=== PATIENT | female | born 1950 | race Caucasian/White ===

== ENCOUNTER 2016-09-10 16:30 | Inpatient (IN) | payer BC ==
[~2016-09-10] VITALS: Ht 165.1 cm; Wt 65.3 kg
[2016-09-10] MEDS ORDERED: CIPROFLOXACIN750 MG ORAL (16:43)
[2016-09-10] MEDS ORDERED: TRAMADOL HCL50 MG ORAL (16:43)
--- NOTE | 2016-09-10 17:14 | Emergency Room Report ---
History of Present Illness General Chief Complaint: Abdominal Pain Source: Patient Present Illness HPI Patient is a 66-year-old female who presented after having increased right- sided abdominal pain. The patient was noted to have a prior total colectomy as well the incontinent ileostomy placement. The patient had previously placed a rubber catheter into the stoma. The patient noted increased amount of bleeding today. The patient had not had any fever. She had not been having any discharge from the stoma site other than blood. Allergies: Coded Allergies: No Known Allergies (Verified , 01/11/12) Patient History Past Medical History: see triage record Now: No Reviewed Nursing Documentation: PMH: Agreed, PSxH: Agreed Nursing Documentation-PMH Hx Cardiac Problems: Yes - HX AFIB Hx Gastrointestinal Problems: Yes - COLOSTOMY LOWER RIGHT QUAD Review of Systems All Other Systems: negative except mentioned in HPI Physical Exam Vital Signs Date Time Temp Pulse Resp B/P Pulse Ox O2 Delivery O2 Flow Rate FiO2 09/10/16 16:34 97.9 73 14 137/90 100 Room Air Sp02 EP Interpretation: reviewed, normal General Appearance: normal inspection, well appearing, no apparent distress, alert, GCS 15 Head: atraumatic ENT: normal ENT inspection, hearing grossly normal, normal voice Neck: normal inspection, full range of motion, supple, no bony tend Respiratory: normal inspection, lungs clear, normal breath sounds, no respiratory distress, no retraction, no wheezing Cardiovascular #1: regular rate, rhythm, no edema Gastrointestinal: normal inspection, normal bowel sounds, soft, no hernia, tenderness - right lower abdomen. Genitourinary: no CVA tenderness Musculoskeletal: normal inspection, back normal, normal range of motion Neurologic: normal inspection, alert, oriented x3, responsive, observation assistant III-XII nml as tested, speech normal Psychiatric: normal inspection, judgement/insight normal, mood/affect normal Skin: normal inspection, normal color, no rash Medical Decision Making Diagnostic Impression: Primary Impression: Kock Pouch bleeding Additional Impression: Abdominal pain ER Course Patient presented for abdominal pain. Differential diagnoses included ischemic bowel, appendicitis, perforated viscus, abdominal aortic aneurysm, inferior myocardial infarction, viral gastroenteritis Because of complexity of patient's case laboratory testing and imaging studies were ordered. The patient was discussed with Dr. Loc Cuevas. The doctor Cuevas saw the patient while in the emergency department and placed a Brock catheter into the stoma. The patient was given IV pain medications. CT of the abdomen pelvis read by radiology showed postsurgical changes as well as a Brock catheter in the stoma which appear to be somewhat deep. Dr. Cuevas was notified of the radiographic findings and he agreed to see the patient as an inpatient. Labs Test 09/10/16 17:20 White Blood Count 9.7 K/UL (4.8-10.8) Red Blood Count 4.67 M/UL (4.20-5.40) Hemoglobin 14.8 G/DL (12.0-16.0) Hematocrit 44.2 % (37.0-47.0) Mean Corpuscular Volume 95 FL (80-99) Mean Corpuscular Hemoglobin 31.6 PG (27.0-31.0) Mean Corpuscular Hemoglobin Concent 33.5 G/DL (32.0-36.0) Red Cell Distribution Width 11.1 % (11.6-14.8) Platelet Count 241 K/UL (150-450) Mean Platelet Volume 6.5 FL (6.5-10.1) Neutrophils (%) (Auto) 63.5 % (45.0-75.0) Lymphocytes (%) (Auto) 24.4 % (20.0-45.0) Monocytes (%) (Auto) 9.6 % (1.0-10.0) Eosinophils (%) (Auto) 1.2 % (0.0-3.0) Basophils (%) (Auto) 1.3 % (0.0-2.0) Prothrombin Time 10.2 SEC (9.30-11.50) Prothromb Time International Ratio 1.0 (0.9-1.1) Activated Partial Thromboplast Time 24 SEC (23-33) Sodium Level 141 mEQ/L (135-145) Potassium Level 3.7 mEQ/L (3.4-4.9) Chloride Level 103 mEQ/L (98-107) Carbon Dioxide Level 23 mEQ/L (20-30) Anion Gap 15 (5-15) Blood Urea Nitrogen 14 mg/dL (7-23) Creatinine 0.8 mg/dL (0.5-0.9) Estimat Glomerular Filtration Rate > 60 mL/min (>60) Glucose Level 96 mg/dL (74-106) Calcium Level 9.5 mg/dL (8.6-10.2) Total Bilirubin 0.9 mg/dL (0.0-1.2) Aspartate Amino Transf (AST/SGOT) 20 U/L (5-40) Alanine Aminotransferase (ALT/SGPT) 17 U/L (3-33) Alkaline Phosphatase 71 U/L (35-104) Total Protein 7.0 g/dL (6.6-8.7) Albumin 4.3 g/dL (3.5-5.2) Globulin 2.7 g/dL Albumin/Globulin Ratio 1.5 (1.0-2.7) Last Vital Signs Date Time Temp Pulse Resp B/P Pulse Ox O2 Delivery O2 Flow Rate FiO2 09/10/16 16:34 97.9 73 14 137/90 100 Room Air Status: unchanged Disposition: ADMITTED INPATIENT Condition: Serious Referrals: LOC CUEVAS (PCP) Ryder Thao Sep 10, 2016 17:14
[2016-09-10] MEDS ORDERED: HYDROmorphone 1mg/NS 50ml IVPB 50 ML IVPB ONE (17:15)
[2016-09-10] MEDS ORDERED: HYDROmorphone 1 MG, DiphenhydrAMINE 25 MG in NS 50 ML IVPB ONE (17:15)
--- NOTE | 2016-09-10 17:15 | General Progress Note ---
Progress Note Progress Note 66 yo female in good health with past history Ulcerative Colitis and total colectomy with Kock Pouch continent ileostomy (1984) plus several subsequent revisions. Now with severe abdominal and adrián-stomal pain, pain with intubation and bleeding Abdomen soft, flat; peristomal swelling and tenderness I was unable to insert a 28Fr Brock to her Kock pouch, but did get a 26Fr Brock in - connected to gravity drainage bag. Imp. Kock pouch with abdominal and peristomal pain and bleeding R/O perforation of access segment with abscess R/O bleeding from pouch or stoma, or UGI source Plan: STAT labs STAT CT scan abd+pelvis with oral and IV contrast LOC HUMPHRIES Sep 10, 2016 17:15
[2016-09-10 17:31] LABS: BASOPHILS % (AUTO) 1.3 % (0.0-2.0); EOSINOPHILS % (AUTO) 1.2 % (0.0-3.0); LYMPHOCYTES % (AUTO) 24.4 % (20.0-45.0); MEAN CORPUSCULAR HEMOGLOBIN 31.6 PG (27.0-31.0); MEAN CORPUSCULAR HGB CONC 33.5 G/DL (32.0-36.0); MEAN CORPUSCULAR VOLUME 95 FL (80-99); MEAN PLATELET VOLUME 6.5 FL (6.5-10.1); MONOCYTES % (AUTO) 9.6 % (1.0-10.0); NEUTROPHILS % (AUTO) 63.5 % (45.0-75.0); PLATELET COUNT 241 K/UL (150-450); RED BLOOD COUNT 4.67 M/UL (4.20-5.40); RED CELL DISTRIBUTION WIDTH 11.1 % (11.6-14.8); WHITE BLOOD COUNT 9.7 K/UL (4.8-10.8)
[2016-09-10 17:41] LABS: PROTHROMBIN TIME 10.2 SEC (9.30-11.50)
[2016-09-10 17:48] LABS: ALANINE AMINOTRANSFERASE 17 U/L (3-33); ALBUMIN/GLOBULIN RATIO 1.5 (1.0-2.7); ANION GAP 15 (5-15); ASPARTATE AMINO TRANSFERASE 20 U/L (5-40); CALCIUM 9.5 mg/dL (8.6-10.2); CARBON DIOXIDE 23 mEQ/L (20-30); CHLORIDE 103 mEQ/L (98-107); CREATININE 0.8 mg/dL (0.5-0.9); GLOMERULAR FILTRATION RATE > 60 mL/min (>60); HEMOLYSIS 8; POTASSIUM 3.7 mEQ/L (3.4-4.9); SODIUM 141 mEQ/L (135-145)
[2016-09-10 18:51] VITALS: BP 131/85
[2016-09-10] MEDS ORDERED: DiphenhydrAMINE 50mg/ml Inj IVP PRN (20:30)
[2016-09-10] MEDS ORDERED: LORazepam 1mg tab ORAL PRN (20:45)
[2016-09-10] MEDS: HYDROmorphone 1mg/ml Carpuject SUBQ PRN (21:22)
[2016-09-10 22:22] VITALS: BP 138/83
[2016-09-10] MEDS: D5 1/2NS w/KCl 20mEq 1,000 ML IV SCH (22:37)
[2016-09-11] VITALS: BP 142/86
[2016-09-11 04:00] VITALS: BP 140/86
[2016-09-11] MEDS: D5 1/2NS w/KCl 20mEq 1,000 ML IV SCH ×3 (04:41→16:59)
[2016-09-11 07:38] LABS: BASOPHILS % (AUTO) 1.4 % (0.0-2.0); EOSINOPHILS % (AUTO) 2.3 % (0.0-3.0); LYMPHOCYTES % (AUTO) 22.3 % (20.0-45.0); MEAN CORPUSCULAR HGB CONC 32.2 G/DL (32.0-36.0); MEAN CORPUSCULAR VOLUME 96 FL (80-99); MEAN PLATELET VOLUME 6.5 FL (6.5-10.1); MONOCYTES % (AUTO) 9.9 % (1.0-10.0); NEUTROPHILS % (AUTO) 64.2 % (45.0-75.0); PLATELET COUNT 256 K/UL (150-450); RED BLOOD COUNT 4.84 M/UL (4.20-5.40); RED CELL DISTRIBUTION WIDTH 11.9 % (11.6-14.8); WHITE BLOOD COUNT 8.2 K/UL (4.8-10.8)
[2016-09-11 07:53] LABS: ALANINE AMINOTRANSFERASE 16 U/L (3-33); ALBUMIN/GLOBULIN RATIO 1.5 (1.0-2.7); ANION GAP 15 (5-15); ASPARTATE AMINO TRANSFERASE 20 U/L (5-40); CALCIUM 9.6 mg/dL (8.6-10.2); CARBON DIOXIDE 26 mEQ/L (20-30); CHLORIDE 100 mEQ/L (98-107); CREATININE 0.9 mg/dL (0.5-0.9); GLOMERULAR FILTRATION RATE > 60 mL/min (>60); HEMOLYSIS 7; LIPASE 15 U/L (< 60); POTASSIUM 3.9 mEQ/L (3.4-4.9); SODIUM 141 mEQ/L (135-145); TOTAL PROTEIN 7.4 g/dL (6.6-8.7)
[2016-09-11 08:00] VITALS: BP 123/73
--- NOTE | 2016-09-11 08:15 | General Progress Note ---
Progress Note Progress Note H&P dictated last night. Afebrile VSS Continues to c/o abdominal pain, cramping, and peristomal pain Abdomen soft, flat,non-tender except around stoma Overnight: urine 420 Kock pouch ileo 250 no blood in effluent Labs all stable/unchanged. CT in ER negative but oral contrast was not given despite request Imp. Abdominal pain with Kock pouch painful intubations and bleeding Plan: Repeat CT scan with contrast instilled into the Kock Pouch = CT pouchogram Kock pouch endoscopy in LOC ROGERS Sep 11, 2016 08:15
[2016-09-11] MEDS: Norco 5mg/325mg tab ORAL PRN ×2 (09:58→19:14)
[2016-09-11 12:00] VITALS: BP 112/71
[2016-09-11 16:12] VITALS: BP 111/75
[2016-09-11 20:28] VITALS: BP 113/72
--- NOTE | 2016-09-11 21:17 | Pre-op HX & Phy Repo 2 SIG ---
DATE OF ADMISSION: 09/10/2016 HISTORY OF PRESENT ILLNESS: The patient is a 66-year-old female in overall good health with abdominal pain and difficulty with intubation of her Kock pouch continent ileostomy with severe pain and bleeding. The patient has a past history of ulcerative colitis. In 1984 she underwent proctocolectomy and creation of a Kock pouch continent ileostomy. She required a revision of the nipple valve in 1985 and a revision of the stoma for stricture in 2007. Her usual routine is to intubate 8 times per day and one to two times at night in the using a 34-Georgian nasopharyngeal airway. She has had no incontinence and no history of pouchitis. She was seen by me once in the past in the office because of her concern about a small stoma. She changed her intubation catheter to a 30-Georgian Medena catheter and had an easier time of intubating her small stoma. In 12/2015, she had pain and bleeding for several days with her catheter and had watery output with cramps. She was treated with Cipro and Flagyl orally and the symptoms resolved. She then developed progressive pain and bleeding intubating and tried a 30-Georgian Stephanie catheter and found she had less difficulty. She was advised to undergo a pouch endoscopy and likely a stoma revision, but deferred at that time. The point of pain is within the first inch of intubating into the stoma. Now the patient presents with 24 hours of severe abdominal pain and severe peristomal pain with swelling and bleeding. She was able to insert only a 24-Georgian catheter into her pouch, but was able to evacuate some material and did not have nausea or vomiting. MEDICATIONS: Aspirin 81 mg daily; Celebrex and ibuprofen for low back pain. ALLERGIES: None. OPERATIONS: Knee and elbow surgery in addition to the above. REVIEW OF SYSTEMS: 1) The patient has a history of atrial fibrillation and underwent ablation in 2012 2) The patient had a recent borderline or equivocal stress test and underwent CT scan of the chest a week ago and was told it was unremarkable. PHYSICAL EXAMINATION: GENERAL: The patient is 5 foot 8 inches and 140 pounds. HEENT: Within normal limits. LUNGS: Clear. HEART: Regular rhythm. BREASTS: Without masses. ABDOMEN: Soft and flat with some mild tenderness, but most concentrated in the right lower quadrant around the stoma. There is soft tissue swelling, but no sign of cellulitis or abdominal wall hernia. PELVIC: Deferred. RECTAL: Status post proctectomy. EXTREMITIES: Without edema. NEUROLOGIC: Physiologic. PROCEDURE PERFORMED: I tried in the Emergency Room to insert a 28-Georgian Brock catheter into her pouch, having removed the indwelling small catheter that she had in place, but it was too painful. I did insert a 26-Georgian Brock catheter into the pouch and confirmed its location with irrigation and secured it to the skin with tape and connected it to a continuous gravity drainage bag. Dry dressing was applied. The patient underwent laboratory testing revealing white count 9700 and hemoglobin 14.8. Comprehensive metabolic panel within normal limits. It should be noted that the patient has had very little oral intake and these values may be hemoconcentrated. A CT scan of the abdomen and pelvis was performed, but unfortunately oral contrast was not given. This did not reveal any acute process, but a small abscess just under the stoma could readily be missed without oral contrast. IMPRESSION: 1. Kock pouch painful intubation and bleeding with abdominal pain and peristomal pain 2. History of ulcerative colitis. 3. History of atrial fibrillation, status post ablation in 2012. 4. Status post multiple abdominal operations. 4.1. Proctocolectomy and Kock pouch continent ileostomy in 1984. 4.2. Revision of Kock pouch nipple valve in 1985. 4.3. Revision of Kock pouch stoma for stricture in 2007. PLAN: The patient needs to be admitted for management of pain, which has required parental medications in the emergency room, and for close observation. She also requires an indwelling catheter into her Kock pouch for continuous gravity drainage and intravenous hydration. She will require a repeat CT scan with contrast given into the pouch at the time of CT scan to better identify a potential perforation of the access segment, which would explain the severe pain in the peristomal area and swelling. I have discussed this plan with the patient and she understands and agrees to proceed. Vishnu Cuevas M.D. DR: TAYLOR JOB#: [id number] CC: MATT
[2016-09-12] VITALS (11 sets, daily range): BP systolic 106–129; BP diastolic 69–87
[2016-09-12] MEDS: Norco 5mg/325mg tab ORAL PRN ×3 (00:57→22:17)
[2016-09-12] MEDS: D5 1/2NS w/KCl 20mEq 1,000 ML IV SCH (05:50)
[2016-09-12] MEDS ORDERED: HYDROmorphone 1mg/ml Carpuject SUBQ PRN (08:30)
--- NOTE | 2016-09-12 08:33 | Pre-Procedure Note/Attestation ---
Pre-Procedure Note/Attestation Complete Prior to Procedure Planned Procedure: not applicable Procedure Narrative: Kock pouch endoscopy Indications for Procedure Pre-Operative Diagnosis: Malfunctioning Kock Pouch Attestation I attest that I discussed the nature of the procedure; its benefits; risks and complications; and alternatives (and the risks and benefits of such alternatives ), prior to the procedure, with the patient (or the patient's legal traffic workforce representative). I attest that, if there was a reasonable possibility of needing a blood transfusion, the patient (or the patient's legal traffic workforce representative) was given the [facility] standardized written summary, pursuant to the Damion Bystrom Blood Safety Act ([place] Health and Safety Code # 1645, as amended). I attest that I re-evaluated the patient just prior to the surgery and that there has been no change in the patient's H&P, except as documented below:none LOC HUMPHRIES Sep 12, 2016 08:33
[2016-09-12] MEDS: HYDROmorphone 1mg/ml Carpuject SUBQ PRN (08:36)
--- NOTE | 2016-09-12 09:23 | Brief Operative Note ---
Immediate Post Operative Note Operative Note Pre-op Diagnosis: Malfunctioning Kock Pouch Procedure: Kock pouch endoscopy Post-op Diagnosis: slight narrowing of access segment near stoma orifice Post-op Diagnosis: same as pre-op Findings: consistent w/pre-op dx studies Surgeon: yady Anesthesiologist: ector Anesthesia: MAC Specimen: none Complications: none Condition: stable Fluids: see anesthesia record Estimated Blood Loss: none Drains: other - 28 Brock to Kock Pouch Implant(s) used?: No LOC HUMPHRIES Sep 12, 2016 09:23
--- NOTE | 2016-09-12 09:39 | Anethesia Preoperative Eval ---
Anesthesia Pre-op PMH/ROS General Date of Evaluation: Sep 12, 2016 Time of Evaluation: 08:58 Anesthesiologist: Drea ASA Score: ASA 2 Mallampati Score Class I : Soft palate, uvula, fauces, pillars visible Class II: Soft palate, uvula, fauces visible Class III: Soft palate, base of uvula visible Class IV: Only hard plate visible Mallampati Classification: Class II Surgeon: Mason Diagnosis: Abdominal pain Surgical Procedure: Pouch endoscopy Anesthesia History: none Family History: no anesthesia problems Allergies: Coded Allergies: No Known Allergies (Verified , 01/11/12) Medications: see eMAR Past Medical History Cardiovascular: Reports: arrhythmia - h/o AF s/p ablasion stable SR, Denies: CAD, HTN, [place], other, valve dz Pulmonary: Denies: COPD, BRITTNEY, asthma, other Gastrointestinal/Genitourinary: Reports: GERD, other - H/O UC s/p total colectomy continent pouch creation, Denies: CRI, ESRD Neurologic/Psychiatric: Denies: CVA, TIA, dementia, depression/anxiety, other Endocrine: Denies: DM, hypothyroidism, other, steroids HEENT: Denies: CHIGNIK LAGOON (L), CHIGNIK LAGOON (R), cataract (L), cataract (R), glaucoma, other Hematology/Immune: Denies: DVT, anemia, bleeding disorder, other Musculoskeletal/Integumentary: Denies: DDD, DJD, OA, RA, edema, other PMH Narrative: as above PSxH Narrative: multiple abdominal Sx for creation and maintenance of continent pouch Anesthesia Pre-op Phys. Exam Physician Exam Last Vital Signs Date Time Temp Pulse Resp B/P Pulse Ox O2 Delivery O2 Flow Rate FiO2 09/12/16 08:45 97.7 09/12/16 07:34 68 20 115/76 96 Room Air Constitutional: NAD Neurologic: CN 2-12 intact Cardiovascular: RRR, no M/R/G Respiratory: CTA Gastrointestinal: S/NT/ND Airway Exam Mallampati Score: Class II MO: limited Neck: stiff ROM: limited Teeth: intact Dentures: no lower, no upper Anesthesia Pre-op A/P Labs see chart Studies Pre-op Studies: EKG - NSR Risk Assessment & Plan Assessment: ASA 2 Plan: MAC Status Change Before Surgery: No Pre-Antibiotics Drug: none RAYMOND FINE M.D. Sep 12, 2016 09:39
--- NOTE | 2016-09-12 09:41 | Immediate Post-Op Evaluation ---
Immediate Post-Op Evalulation Immediate Post-Op Evalulation Procedure: Pouch endoscopy Date of Evaluation: Sep 12, 2016 Time of Evaluation: 09:40 IV Fluids: 300 Blood Products: none Estimated Blood Loss: none Urinary Output: none Blood Pressure Systolic: 117 Blood Pressure Diastolic: 58 Pulse Rate: 64 Respiratory Rate: 20 O2 Sat by Pulse Oximetry: 99 Temperature (Fahrenheit): 97.6 Pain Score (1-10): 2 Nausea: No Vomiting: No Complications none Patient Status: awake, patent, none Hydration Status: adequate RAYMOND FINE M.D. Sep 12, 2016 09:41
--- NOTE | 2016-09-12 09:44 | 48 Hour Post Anesthesia Eval ---
Post Anesthesia Evaluation Procedure: Pouch endoscopy Date of Evaluation: Sep 12, 2016 Time of Evaluation: 10:20 Blood Pressure Systolic: 124 0: 68 Pulse Rate: 72 Respiratory Rate: 18 Temperature (Fahrenheit): 97.6 O2 Sat by Pulse Oximetry: 99 Airway: patent Nausea: No Vomiting: No Pain Intensity: 1 Hydration Status: adequate Cardiopulmonary Status: stable Mental Status/LOC: patient returned to baseline Follow-up Care/Observations: n/a Post-Anesthesia Complications: none Follow-up care needed: N/A RAYMOND FINE M.D. Sep 12, 2016 09:44
[2016-09-12] MEDS ORDERED: DiphenhydrAMINE 50mg/ml Inj IVP PRN (09:45)
[2016-09-12] MEDS ORDERED: NS 550ML IV ONE (17:28)
[2016-09-12] MEDS ORDERED: NS Irrig 1000ml ONE (17:28)
[2016-09-12] MEDS ORDERED: Sterile Water Irrig 1000ml IRRIG ONE (17:28)
--- NOTE | 2016-09-12 22:28 | Procedure Note ---
DATE OF ENDOSCOPY: 09/12/2016 TYPE OF ENDOSCOPY: Kock pouch endoscopy. ENDOSCOPIST: Vishnu Cuevas MD ANESTHESIOLOGIST: Uday Shepard MD PRE-ENDOSCOPY DIAGNOSES: 1. Kock pouch painful intubation and bleeding with stenosis of stoma. 2. History of ulcerative colitis. 3. Status post multiple abdominal operations. 3.1. Proctocolectomy and Kock pouch continent ileostomy in 1984. 3.2. Revision of Kock pouch and nipple valve in 1985. 3.3. Revision of Kock pouch stoma for stricture in 2007. POST-ENDOSCOPY DIAGNOSES: 1. Kock pouch painful intubation and bleeding with stenosis of stoma. 2. History of ulcerative colitis. 3. Status post multiple abdominal operations. 3.1. Proctocolectomy and Kock pouch continent ileostomy in 1984. 3.2. Revision of Kock pouch and nipple valve in 1985. 3.3. Revision of Kock pouch stoma for stricture in 2007. ENDOSCOPY PERFORMED: Kock pouch endoscopy. FINDINGS: A mild narrowing of the access segment approximately 2cm to 3 cm within the stoma orifice with a normal pouch and valve. DESCRIPTION OF PROCEDURE: The patient was positioned in the GI laboratory supine and provided with MAC anesthesia by Dr. Uday Shepard. I flushed the indwelling 26-Angolan Brock catheter to clear the pouch of contents and then removed it. Then using a GIF-P 140 endoscope, I entered the stoma and saw a very mild narrowing with some superficial erosions, not bleeding actively at approximately 2 to 3 cm deep from the mucocutaneous junction. The distance to the tip of the nipple valve was 8 to 9 cm, which is normal for this patient. The pouch is distensible and appears completely normal without any inflammation or ulcerations. Retroflex views revealed a circumferentially well-formed nipple valve. Withdrawal views confirmed the above findings. After removing the scope, I was readily able to insert a 28-Angolan Brock into the pouch without any resistance, most likely because she had been dilated with an indwelling 26-Angolan Brock catheter since she was admitted on 09/10/2016. I flushed the 28-Angolan Brock to confirm good position and secured it to the skin with tape, put a dressing over it, and connected it to a gravity drainage bag. The patient tolerated the endoscopy well and will hopefully be able to overcome her issues with keeping the stoma dilated and no surgery will be required. Vishnu Cuevas M.D. DR: FLAQUITA JOB#: [id number] CC: MATT
[2016-09-13 04:00] VITALS: BP 134/81
[2016-09-13 08:00] VITALS: BP 128/75
--- NOTE | 2016-09-13 09:12 | General Progress Note ---
Progress Note Progress Note AVSS Pre-admission pains have resolved. Tolerated BCIR diet Abdomen soft, flat. Kock pouch indwelling catheter draining well Imp. Abdominal pain and Kock Pouch stoma bleeding resolved (she states that it may have started because her catheter tip was folded in a carrying case and partially cracked leaving a rough edgeO) Plan: RN supervised self-draining pouch, flushing and re-inserting the catheter plug Discharge this AM F/U office 1 week - to call prn Full supplies/limitations/instructions provided/discussed Provided Brock 28 and 26, Stephanie 30Fr, Medena 24Fr, stoma stents (small and large) To maintain indwelling Brock until 09/18 - then resume self-intubations with Stephanie catheter, use stent in-between if still tight LOC HUMPHRIES Sep 13, 2016 09:12
[2016-09-13] MEDS ORDERED: Midazolam 2mg/2ml Inj ONE (09:59)
[2016-09-13] MEDS ORDERED: fentaNYL 100 mcg/2 mL IV ONE (09:59)
[2016-09-13] MEDS ORDERED: Propofol 10mg/ml 20ml IV ONE (09:59)
--- NOTE | 2016-09-17 10:29 | Diagnostic Imaging Report ---
Clinical Indication: PAIN, bleeding from continent ileostomy, abdominal pain Technique: No oral contrast utilized, per emergency room physician request IV administration nonionic contrast. Venous phase spiral acquisition obtained through the abdomen and pelvis. Multiplanar reconstructions were generated. Total dose length product mGycm. CTDIvol(s) 16 mGy Comparison: None Findings: There is a right pelvic continent ileostomy. A Brock catheter is present within the pouch. There is mild gaseous distention of portions of the pouch. No significant liquid component is seen. No proximal small bowel distention is demonstrated. The colon is surgically absent. No free or loculated intraperitoneal air or fluid is demonstrated. The distal esophagus, stomach are unremarkable. The second portion of the duodenum is mildly distended and mildly thickwalled. There is also equivocal mild wall thickening of the proximal jejunum. The liver demonstrates a small area of focal fatty infiltration in the usual location adjacent to the fissure for the ligamentum teres. The gallbladder, bile ducts, pancreas, spleen, adrenals the kidneys are unremarkable. No retroperitoneal or mesenteric mass or adenopathy. No pelvic mass or adenopathy. The included lung bases are clear. The bones are unremarkable except for mild degenerative changes of the lumbar spine. Impression: Postoperative changes of prior total colectomy and continent ileostomy pouch placement. No unusual features Equivocal mild distention and wall thickening of the duodenum and proximal jejunum, mild duodenitis/enteritis not completely excludable. Incidental findings as noted, including focal fatty infiltration of the liver, mild degenerative spondylosis This agrees with the preliminary interpretation provided overnight by Dr. West The CT scanner at [facility] is accredited by the [employer] and the scans are performed using protocols designed to limit radiation exposure to as low as reasonably achievable to attain images of sufficient resolution adequate for diagnostic evaluation.
--- NOTE | 2016-09-17 10:30 | Diagnostic Imaging Report ---
Indication: Abdominal pain, cramping, peristomal pain Technique: Spiral acquisitions obtained through the abdomen and pelvis. Prior to scanning, 100 mL of dilute water-soluble contrast was injected into the Brock catheter within the ileostomy pouch. No IV contrast utilized, per referring physician request.. Multiplanar reconstructions were generated. Total dose length product 565 mGycm. CTDIvol(s) 12 mGy Comparison: 09/10/2016 Findings: Again demonstrated is a pelvic ileostomy pouch, inside of which is a Brock catheter. Contrast fills the ileostomy pouch. Peripheral filling defects are seen within the contrast column, may reflect either debris or mucosal redundancy. No evidence of contrast leakage is demonstrated. No significant peristomal opacity is demonstrated. No reflux of contrast into the into the small bowel is demonstrated. No loculated fluid collections are demonstrated. No small bowel distention is evident. Previously question duodenal distention and wall thickening are no longer evident. Lack of IV contrast limits assessment of solid organs. The gallbladder contains vicarious excreted contrast from previous days exam. The liver, bile ducts, pancreas, spleen, adrenals, kidneys are all unremarkable. No retroperitoneal or mesenteric mass or adenopathy. The lung bases demonstrate minimal scarring or atelectasis bilaterally. The bones are except for mild degenerative spondylosis changes. Impression: Unremarkable appearance to the ileostomy pouch, post contrast opacification. No evidence of peristomal abscess, leakage, or other complication. Filling defects within the pouch most likely represent debris, could also represent clinical redundancy. No definite findings to explain bleeding, cramping, or peristomal pain. No new findings, since previous days exam. Findings previously discussed by phone with Dr. Cuevas The CT scanner at [facility] is accredited by the [employer] and the scans are performed using protocols designed to limit radiation exposure to as low as reasonably achievable to attain images of sufficient resolution adequate for diagnostic evaluation.
--- NOTE | 2016-09-21 15:39 | Discharge Summary ---
Discharge Summary Hospital Course Date of Admission Sep 10, 2016 at 18:59 Date of Discharge Sep 13, 2016 at 10:00 Admitting Diagnosis Zamorano pouch bleeding abdominal pain HPI Mily Chowdhury is a 66 year old female who was admitted on Sep 10, 2016 at 18: 59 for Zamorano Pouch Bleeding, Abdominal Pain Hospital Course The patient is a 66-year-old female in overall good health with abdominal pain and difficulty with intubation of her Kock pouch continent ileostomy with severe pain and bleeding. The patient has a past history of ulcerative colitis. In 1984 she underwent proctocolectomy and creation of a Kock pouch continent ileostomy. She required a revision of the nipple valve in 1985 and a revision of the stoma for stricture in 2007. Her usual routine is to intubate 8 times per day and one to two times at night in the using a 34-Guatemalan nasopharyngeal airway. She has had no incontinence and no history of pouchitis. She was seen by me once in the past in the office because of her concern about a small stoma. She changed her intubation catheter to a 30-Guatemalan Medena catheter and had an easier time of intubating her small stoma. In 12/2015, she had pain and bleeding for several days with her catheter and had watery output with cramps. She was treated with Cipro and Flagyl orally and the symptoms resolved. She then developed progressive pain and bleeding intubating and tried a 30-Guatemalan Stephanie catheter and found she had less difficulty. She was advised to undergo a pouch endoscopy and likely a stoma revision, but deferred at that time. The point of pain is within the first inch of intubating into the stoma. Now the patient presents with 24 hours of severe abdominal pain and severe peristomal pain with swelling and bleeding. She was able to insert only a 24-Guatemalan catheter into her pouch, but was able to evacuate some material and did not have nausea or vomiting. She was admitted to [facility] 09/10/2016 and underwent Kock pouch endoscopy with findings of a mild narrowing of the access segment approximately 2cm to 3 cm within the stoma orifice with a normal pouch and valve. On the day of discharge, pre-admission pain have resolved. Tolerated BCIR diet Abdomen soft, flat. Kock pouch indwelling catheter draining well Impression: Abdominal pain and Kock Pouch stoma bleeding resolved (she states that it may have started because her catheter tip was folded in a carrying case and partially cracked leaving a rough edge) Plan: F/U office 1 week - to call prn Full supplies/limitations/instructions provided/discussed Provided Brock 28 and 26, Stephanie 30Fr, Medena 24Fr, stoma stents (small and large) To maintain indwelling Brock until 09/18 - then resume self-intubations with Stephanie catheter, use stent in-between if still tight PRE-ENDOSCOPY DIAGNOSES: 1. Kock pouch painful intubation and bleeding with stenosis of stoma. 2. History of ulcerative colitis. 3. Status post multiple abdominal operations. 3.1. Proctocolectomy and Kock pouch continent ileostomy in 1984. 3.2. Revision of Kock pouch and nipple valve in 1985. 3.3. Revision of Kock pouch stoma for stricture in 2007. POST-ENDOSCOPY DIAGNOSES: 1. Kock pouch painful intubation and bleeding with stenosis of stoma. 2. History of ulcerative colitis. 3. Status post multiple abdominal operations. 3.1. Proctocolectomy and Kock pouch continent ileostomy in 1984. 3.2. Revision of Kock pouch and nipple valve in 1985. 3.3. Revision of Kock pouch stoma for stricture in 2007. I have been assigned to complete a discharge summary on this account. I was not involved in the patient's management.-- RODRIGUEZ Naqvi. Discharge Discharge Disposition Patient was discharged to Home () Discharge Diagnoses: Bettina Bernard NP Sep 21, 2016 15:39
== END 2016-09-13 10:00 | disposition home or self-care (01) | DRG 395 ==
LOC: ENRESERVTM → ENRESERVDT → EMR 16:47 → 3E 18:59 → EDBEDREQ 19:37 → 3E 09-12 01:30
PROC: 0DJD8ZZ Inspection of Lower Intestinal Tract, Via Natural or Artificial Opening Endoscopic (ICD-10-PCS; principal; 2016-09-12 09:10)
DX: K94.19 Other complications of enterostomy (principal)
CPT/HCPCS: 36415; 74176; 74177; 80053; 83690; 85025; 85610; 85730; 86850; 86900; 86901; 94003; 94150; J2250; J2405

== ENCOUNTER 2016-09-24 11:24 | Inpatient (IN) | payer BC ==
--- NOTE | 2016-09-22 23:17 | Pre-op HX & Phy Repo 2 SIG ---
DATE OF ADMISSION: 09/24/2016 The patient is scheduled to be admitted on 09/24/2016 HISTORY OF PRESENT ILLNESS: The patient is a 66-year-old female in overall good health with a malfunctioning Kock pouch continent ileostomy with stenosis of the access segment with severe pain and difficulty with intubation. The patient has a past history of ulcerative colitis and in 1984 underwent proctocolectomy with creation of a Kock pouch continent ileostomy. She required a revision of the Kock pouch valve in 1985 and in 2007 underwent revision of the Kock pouch stoma for stricture. For the past year, she has been aware of a small tight passage way within the first inch or so of the stoma orifice. She was admitted as an emergency through the emergency room 09/10/2016 with severe pain at the stoma and severe abdominal pain with peristomal swelling and stomal bleeding. She had been unable to use her 30-Beninese intubation catheters either the Zhao or Stephanie, and had inserted a 24-Beninese catheter. She was evaluated at that time and CT scan was negative. The patient did not perforate her stoma. She underwent pouch endoscopy 09/12/2016 revealing a mild narrowing of the access segment approximately 2 cm to 3 cm deep to the mucocutaneous junction of the stoma and the pouch and valve were normal. The patient was sent home with an indwelling 28-Beninese Brock catheter and maintained it in place for nearly a week. She removed it and despite having stented her pouch in this way she immediately had difficult and painful intubations. She is scheduled to be admitted to undergo preparation for surgery the following day to either revise the stoma in depth or to do a laparotomy to create a new valve and stoma. PAST MEDICAL HISTORY: MEDICATIONS: Aspirin 81 mg daily, Celebrex and ibuprofen for low-back pain. ALLERGIES: None. OPERATIONS: Knee and elbow surgery in addition to the above. REVIEW OF SYSTEMS: The patient has a history of atrial fibrillation and underwent ablation in 2012. The patient had a recent borderline or equivocal stress test and underwent CT scan of the chest in late August 2016 which was unremarkable. PHYSICAL EXAMINATION: GENERAL: The patient is 5 foot 8 inches and 140 pounds. HEENT: Within normal limits. LUNGS: Clear. HEART: Regular rhythm. BREASTS: Without masses. ABDOMEN: Soft and flat with long midline incision with a small stoma of the Kock pouch low in the right lower quadrant. There is no evidence of abdominal wall hernia. PELVIC: Deferred to her primary care physician. RECTAL: Status post proctectomy. EXTREMITIES: Without edema. Pulses 2+ femoral to pedal bilaterally. NEUROLOGIC: Physiologic. IMPRESSION: 1. Malfunctioning Kock pouch with access segment stenosis with painful intubation. 2. History of ulcerative colitis. 3. History of atrial fibrillation status post 2012. 4. History of low back pain. 5. Status post multiple abdominal operations. 5.1. Proctocolectomy and Kock pouch continent ileostomy in 1984. 5.2. Revision of Kock pouch nipple valve in 1985. 5.3. Revision of Kock pouch stoma stricture 2007. PLAN: The patient will be admitted and she will go through a bowel prep, with an indwelling Kock pouch catheter will be connected to continuous gravity drainage and flushed regularly around the clock by the nursing staff. She will receive overnight intravenous hydration and preoperative intravenous antibiotics. She understands that an attempt will be made to approach her problem as a stoma revision but that I anticipate there will not be enough tissue since she has already had a stoma revision, to get below the narrowed strictured area that is painful and bleeds and bring up the tissue to the skin. If that is the case she will undergo laparotomy and revision of her Kock pouch with creation of a new stoma and valve or potentially resection of this pouch with creation of a new continent ileostomy. It is very unlikely she will need to have this pouch resected and have a conventional ileostomy which she has never had requiring an external appliance. I have discussed the risks of surgery including bleeding, infection, injury to adjacent structures or organs, additional issues that could develop with the functioning of her Kock pouch requiring additional procedures etc. All questions have been answered. She understands and agrees to proceed. Vishnu Cuevas M.D. DR: Popeye JOB#: [id number] CC: MATT
[~2016-09-24] VITALS: Ht 172.7 cm; Wt 63.0 kg
[~2016-09-24 11:24] MED LIST: CIPROFLOXACIN750 MG ORAL; TRAMADOL HCL50 MG ORAL
[2016-09-24] MEDS ORDERED: Neomycin Sulfate 500mg Tab ORAL SCH (12:00)
[2016-09-24 12:48] VITALS: BP 132/65
[2016-09-24 13:18] LABS: BASOPHILS % (AUTO) 1.4 % (0.0-2.0); EOSINOPHILS % (AUTO) 1.8 % (0.0-3.0); LYMPHOCYTES % (AUTO) 30.8 % (20.0-45.0); MEAN CORPUSCULAR HEMOGLOBIN 31.7 PG (27.0-31.0); MEAN CORPUSCULAR HGB CONC 33.6 G/DL (32.0-36.0); MEAN CORPUSCULAR VOLUME 94 FL (80-99); MEAN PLATELET VOLUME 6.7 FL (6.5-10.1); MONOCYTES % (AUTO) 7.5 % (1.0-10.0); NEUTROPHILS % (AUTO) 58.3 % (45.0-75.0); PLATELET COUNT 284 K/UL (150-450); RED BLOOD COUNT 4.51 M/UL (4.20-5.40); RED CELL DISTRIBUTION WIDTH 11.7 % (11.6-14.8); WHITE BLOOD COUNT 6.7 K/UL (4.8-10.8)
[2016-09-24 13:25] LABS: ALANINE AMINOTRANSFERASE 14 U/L (3-33); ALBUMIN/GLOBULIN RATIO 1.5 (1.0-2.7); ANION GAP 14 (5-15); ASPARTATE AMINO TRANSFERASE 20 U/L (5-40); CALCIUM 9.9 mg/dL (8.6-10.2); CARBON DIOXIDE 27 mEQ/L (20-30); CHLORIDE 100 mEQ/L (98-107); CREATININE 0.8 mg/dL (0.5-0.9); GLOMERULAR FILTRATION RATE > 60 mL/min (>60); HEMOLYSIS 5; POTASSIUM 4.2 mEQ/L (3.4-4.9); SODIUM 141 mEQ/L (135-145); TOTAL PROTEIN 7.3 g/dL (6.6-8.7)
[2016-09-24] MEDS: Neomycin Sulfate 500mg Tab ORAL SCH ×3 (14:28→20:42)
[2016-09-24] MEDS ORDERED: Hydrocortisone 1% Cr 15gm TOPIC PRN (14:30)
[2016-09-24 16:15] VITALS: BP 138/87
--- NOTE | 2016-09-24 18:32 | General Progress Note ---
Progress Note Progress Note H&P dictated. Bowel prep in progress with indwelling 26Fr Brock into Kock Pouch t continuous gravity drainage. IV hydration due to bowel prep to continue overnight. Full discussion regarding procedure options of stoma revision, possible laparotomy with creation new valve and stoma with preservation of Kock pouch and possible relocation of stoma to LLQ, pouch excision with creation of new pouch, or resection with La ileostomy. LOC HUMPHRIES Sep 24, 2016 18:32
[2016-09-24] MEDS: D5 1/2NS w/KCl 20mEq 1,000 ML IV SCH (18:38)
[2016-09-24] MEDS ORDERED: ALPRAZolam 0.5mg tab ORAL PRN (19:00)
[2016-09-24 20:14] VITALS: BP 124/84
[2016-09-24] MEDS: Zolpidem 5mg tab ORAL PRN (20:42)
[2016-09-25] VITALS (11 sets, daily range): BP systolic 99–133; BP diastolic 60–83
[2016-09-25] MEDS ORDERED: IBUPROFEN IB200 MG PO (00:46)
[2016-09-25] MEDS ORDERED: ASPIR 8181 MG ORAL (00:47)
[2016-09-25] MEDS: Ampicillin/Sulbactam Sod 3 GM in NS 100 ML IVPB SCH ×2 (05:16→12:00)
[2016-09-25] MEDS: metroNIDAZOLE 500mg 100 ML IVPB SCH ×2 (05:23→12:00)
[2016-09-25 07:54] LABS: APPEARANCE,URINE CLEAR; KETONES,URINE NEGATIVE (NEGATIVE); NITRITE,URINE NEGATIVE (NEGATIVE); PROTEIN,URINE NEGATIVE (NEGATIVE); UROBILINOGEN,URINE NORMAL MG/DL (0.0-1.0)
[2016-09-25 08:02] LABS: PH,URINE 6 (4.5-8.0)
[2016-09-25 08:03] LABS: LEUKOCYTE ESTERASE ,URINE 2+ (NEGATIVE)
[2016-09-25] MEDS: D5 1/2NS w/KCl 20mEq 1,000 ML IV SCH (08:09)
[2016-09-25 08:10] LABS: BACTERIA,URINE FEW /HPF; RBC,URINE 0-2 /HPF (0 - 2); SQUAMOUS EPITHELIAL CELL,UR FEW /LPF (NONE/OCC)
--- NOTE | 2016-09-25 08:13 | Pre-Procedure Note/Attestation ---
Pre-Procedure Note/Attestation Complete Prior to Procedure Planned Procedure: not applicable Procedure Narrative: revision Kock Pouch stoma, possible laparotomy with revision Kock Pouch, possible relocation of stoma Indications for Procedure Pre-Operative Diagnosis: malfunctioning Kock Pouch continent ileostomy Attestation I attest that I discussed the nature of the procedure; its benefits; risks and complications; and alternatives (and the risks and benefits of such alternatives ), prior to the procedure, with the patient (or the patient's legal front desk representative). I attest that, if there was a reasonable possibility of needing a blood transfusion, the patient (or the patient's legal front desk representative) was given the [place] Department [employer] standardized written summary, pursuant to the Damion Wayzata Blood Safety Act ([place] Health and Safety Code # 1645, as amended). I attest that I re-evaluated the patient just prior to the surgery and that there has been no change in the patient's H&P, except as documented below: none LOC HUMPHRIES Sep 25, 2016 08:13
[2016-09-25] MEDS ORDERED: Heparin 5000 units/ml inj SUBQ ONE (10:00)
[2016-09-25] MEDS ORDERED: Bacitracin 50000 Units Vial ONE (11:17)
[2016-09-25] MEDS ORDERED: NS Irrig 1000ml ONE (11:40)
[2016-09-25] MEDS ORDERED: Glycopyrrolate 0.2mg/ml 1ml Vial ONE (11:40)
[2016-09-25] MEDS ORDERED: Sterile Water Irrig 1000ml IRRIG ONE (11:40)
[2016-09-25] MEDS ORDERED: Propofol 10mg/ml 20ml IV ONE (11:40)
[2016-09-25] MEDS ORDERED: Midazolam 2mg/2ml Inj ONE (11:40)
[2016-09-25] MEDS ORDERED: Zemuron 50mg/5ml Inj IV ONE (11:40)
[2016-09-25] MEDS ORDERED: Neostigmine 1mg/ml 10ml Inj ONE (11:40)
[2016-09-25] MEDS ORDERED: fentaNYL 100 mcg/2 mL IV ONE (11:40)
[2016-09-25] MEDS ORDERED: LR 1000ml 1,000 ML IVLG SCH (12:42)
[2016-09-25] MEDS ORDERED: LORazepam Inj 2mg/ml 1ml IV PRN (12:45)
[2016-09-25] MEDS ORDERED: Meperidine 25mg/ml Inj IV PRN (12:45)
--- NOTE | 2016-09-25 12:51 | Anethesia Preoperative Eval ---
Anesthesia Pre-op PMH/ROS General Date of Evaluation: Sep 25, 2016 Time of Evaluation: 11:40 Anesthesiologist: Yonas ASA Score: ASA 2 Mallampati Score Class I : Soft palate, uvula, fauces, pillars visible Class II: Soft palate, uvula, fauces visible Class III: Soft palate, base of uvula visible Class IV: Only hard plate visible Mallampati Classification: Class II Surgeon: Mason Diagnosis: Malfunctioning Kock Pouch Surgical Procedure: Revision Kock Pouch Family History: no anesthesia problems Allergies: Uncoded Allergies: hay fever (Allergy, Unknown, 09/24/16) Medications: see eMAR Past Medical History Cardiovascular: Reports: arrhythmia - AFIB (s/p ablation), Denies: CAD, HTN, MN, other, valve dz Pulmonary: Denies: COPD, BRITTNEY, asthma, other Gastrointestinal/Genitourinary: Reports: other - Ulcerative colitis Neurologic/Psychiatric: Denies: CVA, TIA, dementia, depression/anxiety, other Endocrine: Denies: DM, hypothyroidism, other, steroids HEENT: Denies: HO-CHUNK (L), HO-CHUNK (R), cataract (L), cataract (R), glaucoma, other Hematology/Immune: Denies: DVT, anemia, bleeding disorder, other Musculoskeletal/Integumentary: Denies: DDD, DJD, OA, RA, edema, other PMH Narrative: AFIB (s/p ablation), ulcerative colitis PSxH Narrative: Colectomy and revision, knee scope, elbow surgery Anesthesia Pre-op Phys. Exam Physician Exam Last Vital Signs Date Time Temp Pulse Resp B/P Pulse Ox O2 Delivery O2 Flow Rate FiO2 09/25/16 08:00 97.9 68 20 133/82 98 Room Air Constitutional: NAD Neurologic: CN 2-12 intact Cardiovascular: RRR, no M/R/G Respiratory: CTA Gastrointestinal: S/NT/ND Airway Exam Mallampati Score: Class II MO: full ROM: full Teeth: intact Anesthesia Pre-op A/P Labs WNL Studies Pre-op Studies: EKG - SR Risk Assessment & Plan Assessment: Malfunctioning Kock pouch for revision Plan: GETA, Propofol drip Status Change Before Surgery: No Pre-Antibiotics Drug: Unasyn, Flagyl Given Within 1 Hr of Incision: Yes Time Given: 12:00 CIRA VILLANUEVA M.D. Sep 25, 2016 12:51
--- NOTE | 2016-09-25 12:52 | Immediate Post-Op Evaluation ---
Immediate Post-Op Evalulation Immediate Post-Op Evalulation Procedure: Revision Kock Pouch Stoma Date of Evaluation: Sep 25, 2016 Time of Evaluation: 13:45 IV Fluids: 800 Blood Pressure Systolic: 102 Blood Pressure Diastolic: 66 Pulse Rate: 66 Respiratory Rate: 20 O2 Sat by Pulse Oximetry: 96 Temperature (Fahrenheit): 97 Pain Score (1-10): 3 Nausea: No Vomiting: No Complications No complication Patient Status: awake, patent, extubated, none Hydration Status: adequate Drug: Unasyn, Flagyl Given Within 1 Hr of Incision: Yes Time Given: 12:00 CIRA VILLANUEVA M.D. Sep 25, 2016 12:52
[2016-09-25] MEDS ORDERED: Hydromorphone 0.5mg/0.5ml inj ONE (13:42)
--- NOTE | 2016-09-25 13:42 | 48 Hour Post Anesthesia Eval ---
Post Anesthesia Evaluation Procedure: Revision Kock Pouch Stoma Date of Evaluation: Sep 25, 2016 Time of Evaluation: 14:15 Blood Pressure Systolic: 127 0: 86 Pulse Rate: 64 Respiratory Rate: 18 Temperature (Fahrenheit): 97.5 O2 Sat by Pulse Oximetry: 96 Airway: patent Nausea: No Vomiting: No Pain Intensity: 3 If pain is > 6 Comment: Spoke with nurse. Patient is asking for pain medication. Hydration Status: adequate Cardiopulmonary Status: Stable Mental Status/LOC: patient returned to baseline Follow-up Care/Observations: As per surgery Post-Anesthesia Complications: No anesthetic complication Follow-up care needed: N/A CIRA VILLANUEVA M.D. Sep 25, 2016 13:42
--- NOTE | 2016-09-25 13:44 | Brief Operative Note ---
Immediate Post Operative Note Operative Note Pre-op Diagnosis: malfunctioning Kock Pouch continent ileostomy Procedure: revision Kock Pouch stoma in depth Post-op Diagnosis: Stenosis of Kock pouch access segment at rectus muscle Post-op Diagnosis: same as pre-op Findings: consistent w/pre-op dx studies Surgeon: yady Residential Substance Abuse Counselor: jimbo Anesthesiologist: sarthak Specimen: yes - Kock pouch stoma Complications: none Condition: stable Fluids: see anesthesia record Estimated Blood Loss: minimal Drains: other - 30 Fr vitale into Kock pouch Implant(s) used?: No LOC HUMPHRIES Sep 25, 2016 13:43
[2016-09-25] MEDS ORDERED: Norco 5mg/325mg tab ORAL PRN (13:45)
[2016-09-25] MEDS ORDERED: LORazepam 1mg tab SL PRN (13:45)
[2016-09-25] MEDS ORDERED: Acetaminophen 650mg/20.3ml ORAL PRN (13:45)
[2016-09-25] MEDS: Hydromorphone 0.5mg/0.5ml inj IVP PRN ×2 (13:49→14:25)
[2016-09-25] MEDS ORDERED: D5 1/4NS w/KCl 20mEq 1,000 ML IV SCH (17:30)
[2016-09-25] MEDS: metroNIDAZOLE 500mg 100 ML IV SCH ×2 (17:50→23:53)
[2016-09-25] MEDS ORDERED: Ampicillin/Sulbactam Sod 3 GM in NS 100 ML IV SCH (18:00)
[2016-09-25] MEDS: HYDROmorphone 1mg/ml Carpuject SUBQ PRN ×2 (19:57→23:57)
[2016-09-25] MEDS: UNASYN IVPB SCH (19:58)
[2016-09-25] MEDS: NS IVPB SCH (19:58)
--- NOTE | 2016-09-25 21:29 | Cardiology Report ---
APPROVED REPORT EKG Measurement Heart [id number] Normal sinus rhythm Left axis deviation RV conduction delay Nonspecific ST and T wave abnormality Abnormal ECG
--- NOTE | 2016-09-25 23:08 | Operative Note - Dictated ---
DATE OF OPERATION: 09/25/2016 SURGEON: Vishnu Cuevas M.D. [employer] SURGEON: Sandro Reyes M.D. ANESTHESIOLOGIST: Damion Branham M.D. TYPE OF ANESTHESIA: General. PREOPERATIVE DIAGNOSES: 1. Malfunctioning Kock pouch with access segment/stoma stenosis with painful intubation. 2. History of ulcerative colitis. 3. Status post multiple abdominal operations. 3.1. Proctocolectomy and Kock pouch continent ileostomy in 1984. 3.2. Revision of Kock pouch nipple valve in 1985. 3.3. Revision of Kock pouch stoma stricture in 2007. POSTOPERATIVE DIAGNOSES: 1. Malfunctioning Kock pouch with access segment/stoma stenosis with painful intubation. 2. History of ulcerative colitis. 3. Status post multiple abdominal operations. 3.1. Proctocolectomy and Kock pouch continent ileostomy in 1984. 3.2. Revision of Kock pouch nipple valve in 1985. 3.3. Revision of Kock pouch stoma stricture in 2007. OPERATION PERFORMED: Revision of Kock pouch stoma and access segment in depth. PROCEDURE: The patient was taken to the operating room and under general anesthesia with sequential compression device stockings in place, the patient was prepped and draped in the usual fashion. A transversely oriented elliptical incision was made around the stoma, which only allowed a 26-Uzbek Brock catheter to enter smoothly and a 28-Uzbek Brock catheter felt resistance although it could be passed into the pouch. The edges of the stoma were grasped with Allis clamps and a circumferential dissection was performed through the rectus muscle preserving the mesentery. At the medial aspect of the access segment there was dense fibrosis within the rectus sheath causing an extrinsic compression of the access segment. This was released and opened. I was then able to not only insert a 28-Uzbek Brock catheter readily into the pouch through the stoma opening but also a 30-Uzbek Brock catheter went in quite readily indicating that the painful area of stenosis had been relieved and that laparotomy could be avoided. The field was copiously irrigated with antibiotic solution and hemostasis had been secured with cautery. Now, the medial and lateral aspect of the peristomal incision was narrowed with a single 4-0 Monocryl subcuticular suture at each pole. Then the scarred stoma was excised and a new stoma primarily matured with continuous 2-0 chromic locking sutures starting at the 3 and 9 o'clock positions. A very satisfactory stoma opening was created. I removed the 30-Uzbek Brock catheter and I was able to reinsert it without any difficulty. It was irrigated to confirm good placement in the pouch and then secured to the skin with a single 2-0 silk skin suture. The catheter was flushed again and connected to a gravity drainage bag. Dry sterile dressings were applied. Final sponge and needle counts were correct. The patient tolerated the procedure well and left the operating room in good condition. Vishnu Cuevas M.D. DR: TAYLOR JOB#: [id number] CC: MATT
[2016-09-26] VITALS: BP 148/82
[2016-09-26] MEDS ORDERED: DiphenhydrAMINE 50mg/ml Inj IVP PRN
[2016-09-26] MEDS: HYDROmorphone 1mg/ml Carpuject SUBQ PRN ×2 (02:40→08:29)
[2016-09-26 04:00] VITALS: BP 127/86
[2016-09-26] MEDS: NS IVPB SCH ×5 (05:37→18:30)
[2016-09-26] MEDS: UNASYN IVPB SCH ×5 (05:37→18:30)
[2016-09-26] MEDS: metroNIDAZOLE 500mg 100 ML IV SCH ×3 (05:37→18:30)
[2016-09-26 06:50] LABS: APPEARANCE,URINE CLEAR; KETONES,URINE NEGATIVE (NEGATIVE); LEUKOCYTE ESTERASE ,URINE 1+ (NEGATIVE); NITRITE,URINE NEGATIVE (NEGATIVE); PH,URINE 6.5 (4.5-8.0); PROTEIN,URINE NEGATIVE (NEGATIVE); UROBILINOGEN,URINE NORMAL MG/DL (0.0-1.0)
[2016-09-26 07:36] LABS: BACTERIA,URINE OCCASIONAL /HPF; RBC,URINE 0-2 /HPF (0 - 2); SQUAMOUS EPITHELIAL CELL,UR OCCASIONAL /LPF (NONE/OCC); WBC,URINE 0-2 /HPF (0 - 2)
[2016-09-26 08:00] VITALS: BP 122/84
[2016-09-26] MEDS ORDERED: Ascorbic Acid 500mg tab ORAL PRN (09:30)
--- NOTE | 2016-09-26 09:52 | General Progress Note ---
Progress Note Progress Note AVSS Required Dilaudid IM x 2 overnight. Eating fine Abdomen soft Stoma pink, no bleeding. 30Fr Brock sutured in place - draining well Imp. Stable Plan: D/C IV fluids - continue IV antibiotics another 24 hours RN supervised Kock Pouch catheter care: flush then plug, drain pouch contents q3h am to hs and prn Continue I&O Anticipate discharge tomorrow AM LOC HUMPHRIES Sep 26, 2016 09:52
[2016-09-26 12:00] VITALS: BP 104/73
--- NOTE | 2016-09-26 15:59 | Diagnostic Imaging Report ---
Indication: Off Technique: PA and lateral views of the chest. Findings: Comparison: None Lungs are symmetrically hyperinflated but clear. The bones and extra pulmonary soft tissues, cardiomediastinal silhouette, pulmonary vasculature and parenchyma, and pleural surfaces are unremarkable. IMPRESSION: Bilateral pulmonary hyperinflation suggests COPD. Acute air-trapping not excludable. Correlate clinically. No other evidence of acute cardiopulmonary disease
[2016-09-26 16:17] VITALS: BP 111/73
[2016-09-26 20:27] VITALS: BP 120/74
[2016-09-26] MEDS: Zolpidem 5mg tab ORAL PRN (21:29)
[2016-09-27] MEDS: NS IVPB SCH ×2 (00:25→05:10)
[2016-09-27] MEDS: metroNIDAZOLE 500mg 100 ML IV SCH ×2 (00:25→05:10)
[2016-09-27] MEDS: UNASYN IVPB SCH ×2 (00:25→05:10)
[2016-09-27 00:59] VITALS: BP 108/72
[2016-09-27 08:00] VITALS: BP 116/81
--- NOTE | 2016-09-27 09:23 | General Progress Note ---
Progress Note Progress Note AVSS. Not needing analgesics other than ibuprofen. Managing well with indwelling Kock Pouch catheter with plug - draining pouch contents q3h am to hs and prn and flushing catheter each time before inserting the plug Abdomen soft. Stoma healing nicely with 30Fr Brock in place Instructed re dressing care Imp. Improved Plan: D/C antibiotics and heplock Discharge with full supplies/limitations/instructions provided/discussed F/U 10/02 in office to remove indwelling Kock pouch catheter and begin self-intubations LOC HUMPHRIES Sep 27, 2016 09:23
[2016-09-27] MEDS ORDERED: NS Irrig 1000ml ONE (12:38)
--- NOTE | 2016-09-28 19:54 | Discharge Summary ---
Discharge Summary Hospital Course Date of Admission Sep 24, 2016 at 11:24 Date of Discharge Sep 27, 2016 at 12:39 Admitting Diagnosis HPI Mily Chowdhury is a 66 year old female who was admitted on Sep 24, 2016 at 11:24 for Malfunctioning Of Kock Pouch,Revision Of Kock Procedures Revision of Kock pouch stoma and access segment in depth. Hospital Course : The patient is a 66-year-old female in overall good health with a malfunctioning Kock pouch continent ileostomy with stenosis of the access segment with severe pain and difficulty with intubation. The patient has a past history of ulcerative colitis and in 1984 underwent proctocolectomy with creation of a Kock pouch continent ileostomy. She required a revision of the Kock pouch valve in 1985 and in 2007 underwent revision of the Kock pouch stoma for stricture. For the past year, she has been aware of a small tight passage way within the first inch or so of the stoma orifice. She was admitted as an emergency through the emergency room 09/10/2016 with severe pain at the stoma and severe abdominal pain with peristomal swelling and stomal bleeding. She had been unable to use her 30-Cypriot intubation catheters either the Zhao or Stephanie, and had inserted a 24-Cypriot catheter. She was evaluated at that time and CT scan was negative. The patient did not perforate her stoma. She underwent pouch endoscopy 09/12/2016 revealing a mild narrowing of the access segment approximately 2 cm to 3 cm deep to the mucocutaneous junction of the stoma and the pouch and valve were normal. The patient was sent home with an indwelling 28-Cypriot Brock catheter and maintained it in place for nearly a week. She removed it and despite having stented her pouch in this way she immediately had difficult and painful intubations. On 09/25/16, she underwent revision of Kock pouch stoma and access segment in depth. Post-operatively, she was given pain management. Eating fine. Abdomen soft Stoma pink, no bleeding. 30Fr Brock sutured in place - draining well On the day of discharge: AVSS. Not needing analgesics other than ibuprofen. Managing well with indwelling Kock Pouch catheter with plug - draining pouch contents q3h am to hs and prn and flushing catheter each time before inserting the plug Abdomen soft. Stoma healing nicely with 30Fr Brock in place Instructed re dressing care Plan: D/C antibiotics and heplock Discharge with full supplies/limitations/instructions provided/discussed F/U 10/02 in office to remove indwelling Kock pouch catheter and begin self-intubations POSTOPERATIVE DIAGNOSES: 1. Malfunctioning Kock pouch with access segment/stoma stenosis with painful intubation. 2. History of ulcerative colitis. 3. Status post multiple abdominal operations. 3.1. Proctocolectomy and Kock pouch continent ileostomy in 1984. 3.2. Revision of Kock pouch nipple valve in 1985. 3.3. Revision of Kock pouch stoma stricture in 2007. OPERATION PERFORMED: Revision of Kock pouch stoma and access segment in depth. I have been assigned to complete a discharge summary on this account. I was not involved in the patient's management.--RODRIGUEZ Naqvi. Discharge Discharge Disposition Patient was discharged to Home (01) Discharge Diagnoses: Bettina Bernard NP Sep 28, 2016 19:54
== END 2016-09-27 12:39 | disposition home or self-care (01) | DRG 349 ==
LOC: 3E 11:24
PROC: 0WQFXZ2 Repair Abdominal Wall, Stoma, External Approach (ICD-10-PCS; principal; 2016-09-25 12:00)
DX: K94.13 Enterostomy malfunction (principal); Y83.8 Other surgical procedures as the cause of abnormal reaction of the patient, or of later complication, without mention of misadventure at the time of the procedure
CPT/HCPCS: 36415; 71020; 80053; 81001; 81003; 85025; 85610; 85730; 86850; 86900; 86901; 93005; 94003; 94150; J2180; J2250; J2710

== ENCOUNTER → 2016-10-05 | Day surgery (SDC) | payer BC ==
--- NOTE | 2016-10-04 22:27 | Pre-op HX & Phy Repo 2 SIG ---
DATE OF ENDOSCOPY: 10/05/2016 HISTORY OF PRESENT ILLNESS: The patient is a 66-year-old female in overall good health who underwent a revision of her Kock pouch continent ileostomy stoma on 09/25/2016. She had been having severe pain and difficulty with intubation within the 1st inch within the stoma orifice whether she used her usual 34-Welsh intubation catheter or a 30-Welsh catheter. The patient has a past history of ulcerative colitis and underwent proctocolectomy with Kock pouch in 1984, revision of her Kock pouch valve in 1985, and revision of the Kock pouch stoma for stricture in 2007. Following the surgery of 09/25/2016, she was kept overnight for IV antibiotics, and an indwelling 30-Welsh Brock catheter had been placed at the end of surgery having entered readily whereas before the procedure there was resistance with a 28-Welsh catheter and only a 26-Welsh would enter smoothly. The following morning, the patient was stable for discharge and intravenous antibiotics discontinued. She was sent home with the 30-Welsh Brock catheter indwelling in place until seen in the office on 10/03/2016. The indwelling Brock catheter was removed with cutting of suture holding it in place and a 30-Welsh Stephanie catheter entered readily. However, several hours later, she had difficulty getting the Stephanie catheter in, stating that it was about 2 inches deep and that she had some bleeding. She inserted a 28-Welsh Brock catheter with some difficulty and I advised her to leave it in place with a plug and to regularly let the pouch contents drain and to flush the catheter to keep it patent. She had been advised at the time of her stoma revision that the problem might not be dealt with completely and that a full laparotomy would be required, but at the end of the operation, it appeared that there would be no further difficulty. The plan is therefore now to do a repeat pouch endoscopy to determine whether a full laparotomy and more substantial revision of her Kock pouch creating a new valve and stoma will be required. PAST MEDICAL HISTORY/MEDICATIONS: Aspirin 81 mg daily. Celebrex and ibuprofen for low back pain. ALLERGIES: None. OPERATIONS: Knee and elbow surgery in addition to the above. REVIEW OF SYSTEMS: The patient has a history of atrial fibrillation and underwent ablation in 2012 The patient had a recent borderline or equivocal stress test and underwent CT scan of the chest in late August 2016, which was unremarkable. PHYSICAL EXAMINATION: GENERAL: The patient is 5 foot 8 inches and 140 pounds. HEENT: Within normal limits. LUNGS: Clear. HEART: Regular rhythm. BREASTS: Without masses. ABDOMEN: Soft and flat with a long midline scar and the stoma of the Kock pouch low in the right lower quadrant, which is healing from recent surgery. PELVIC: Per primary care physician recently. RECTAL: Status post proctectomy. EXTREMITIES: Without edema. Pulses 2+ femoral to pedal bilaterally. NEUROLOGIC: Physiologic. IMPRESSION: 1. Malfunctioning Kock pouch with difficulty with intubation and painful intubation 2. History of ulcerative colitis. 3. Status post multiple abdominal operations. 3.1. Proctocolectomy and Kock pouch continent ileostomy in 1984. 3.2. Revision of Kock pouch nipple valve in 1985. 3.3. Revision of Kock pouch stoma stricture in 2007. 3.4. Revision of Kock pouch stoma and access segment in depth on 09/25/2016 PLAN: I have discussed the nature of pouch endoscopy with the patient, who recently underwent a pouch endoscopy, and we will have Anesthesiology available for sedation if the endoscopy causes any pain. The patient understands and agrees to proceed. Vishnu Cuevas M.D. DR: Alex JOB#: [id number] CC: MATT
[~2016-10-05] VITALS: Ht 172.7 cm; Wt 62.6 kg
[~2016-10-05] MED LIST changes: +AMBIEN5 MG ORAL; +ASPIR 8181 MG ORAL; +ATIVAN1 MG ORAL; +IBUPROFEN IB200 MG PO; +NORCO 5-325 TA1 EACH ORAL; +OMEGA 3 FISH O1 EAC1 PO
--- NOTE | 2016-10-05 11:13 | Pre-Procedure Note/Attestation ---
Pre-Procedure Note/Attestation Complete Prior to Procedure Planned Procedure: not applicable Procedure Narrative: Kock Pouch endoscopy Indications for Procedure Pre-Operative Diagnosis: Malfunctioning Kock Pouch with painful intubations and bleeding Attestation I attest that I discussed the nature of the procedure; its benefits; risks and complications; and alternatives (and the risks and benefits of such alternatives ), prior to the procedure, with the patient (or the patient's legal workforce services representative). I attest that, if there was a reasonable possibility of needing a blood transfusion, the patient (or the patient's legal workforce services representative) was given the [facility] standardized written summary, pursuant to the [place] Blood Safety Act ([place] Health and Safety Code # 1645, as amended). I attest that I re-evaluated the patient just prior to the surgery and that there has been no change in the patient's H&P, except as documented below: none LOC HUMPHRIES Oct 05, 2016 11:13
[2016-10-05 11:36] VITALS: BP 129/83
[2016-10-05 12:20] VITALS: BP 118/92
--- NOTE | 2016-10-05 12:28 | Brief Operative Note ---
Immediate Post Operative Note Operative Note Pre-op Diagnosis: Malfunctioning Kock Pouch with painful intubations and bleeding Procedure: Kock pouch endoscopy Post-op Diagnosis: mild edema of access segment Post-op Diagnosis: same as pre-op Findings: consistent w/pre-op dx studies Surgeon: yady Anesthesia: other - none Specimen: none Complications: none Condition: stable Estimated Blood Loss: none Drains: none Implant(s) used?: No LOC HUMPHRIES Oct 05, 2016 12:28
[2016-10-05 12:45] VITALS: BP 129/69
--- NOTE | 2016-10-05 23:07 | Procedure Note ---
DATE OF PROCEDURE: 10/05/2016 ENDOSCOPIST: Vishnu Cuevas M.D. ANESTHESIA: None. SEDATION: None. PREENDOSCOPY DIAGNOSES: 1. Malfunctioning Kock pouch with painful intubation and bleeding. 2. History of ulcerative colitis. 3. Status post proctocolectomy and Kock pouch with revisions including revision of the stoma on 09/25/2016. POSTENDOSCOPY DIAGNOSES: 1. Malfunctioning Kock pouch with painful intubation and bleeding. 2. History of ulcerative colitis. 3. Status post proctocolectomy and Kock pouch with revisions including revision of the stoma on 09/25/2016. ENDOSCOPY PERFORMED: Kock pouch endoscopy. FINDINGS: Mild edema of the access segment. DESCRIPTION OF PROCEDURE: The patient was positioned supine in the GI laboratory with anesthesia available, but I wanted to start the endoscopy without any sedation to see at what point the patient had pain. Using a GIF-P140 endoscope, the stoma in the right lower quadrant was entered and I was able to go through a straight access segment without the patient experiencing any pain and on into the pouch. The distance from the mucocutaneous junction of the stoma to the tip of the nipple valve was approximately 8 cm, what would be expected in this patient. The pouch is distensible and normal. Retroflexed views revealed a well-formed nipple valve. Withdrawal views confirmed the above findings. I did not see any sign of bleeding, but there was some mild edema within the tract leading into the pouch. Following endoscopy, I was able to readily insert a 26-Mongolian Brock catheter into the pouch and empty gas with the patient having no pain. I was able to readily insert a 28-Mongolian Brock catheter, but it was slightly tighter and a small streak of blood was present on the tube when I withdrew it. The patient is instructed to intubate her pouch throughout the day for the next 5 days with a 26-Mongolian Brock catheter, which is provided for her. She will then have an office followup with me and will be able to graduate to the 28-Mongolian Brock catheter for a week and then to her standard 30-Mongolian Stephanie or 30-Mongolian Medena catheter. The patient tolerated the endoscopy well and left the GI lab in good condition. Vishnu Cuevas M.D. DR: Jeanna JOB#: [id number] CC: MATT
== END | disposition home or self-care (01) ==
LOC: GAS 11:06
DX: K94.13 Enterostomy malfunction (principal); Y83.8 Other surgical procedures as the cause of abnormal reaction of the patient, or of later complication, without mention of misadventure at the time of the procedure; Y92.009 Unspecified place in unspecified non-institutional (private) residence as the place of occurrence of the external cause; Z87.19 Personal history of other diseases of the digestive system; Z90.49 Acquired absence of other specified parts of digestive tract; Z79.82 Long term (current) use of aspirin; Z79.1 Long term (current) use of non-steroidal anti-inflammatories (NSAID)

== ENCOUNTER 2016-10-12 09:56 | Inpatient (IN) | payer BC ==
--- NOTE | 2016-10-11 23:37 | Pre-op HX & Phy Repo 2 SIG ---
DATE OF ADMISSION: 10/12/2016 HISTORY OF PRESENT ILLNESS: The patient is a 66-year-old female in overall good health, who has a malfunctioning Kock pouch continent ileostomy with pain and difficulty with intubation but no incontinence. The patient is scheduled to undergo admission and preparation for surgery to create a new valve and stoma with preservation of her existing Kock pouch. The patient has a past history of ulcerative colitis and underwent proctocolectomy with Kock pouch in 1984 followed by revision of the Kock pouch valve in 1985 and revision of the stoma for stricture in 2007. The patient has usually used a 34-Tunisian nasopharyngeal catheter to intubate but in recent months has had increasing difficulty. She required admission from 09/10/2016 through 09/13/2016 and then on 09/25/2016 underwent revision of the stoma in depth. An indwelling 30-Tunisian Brock catheter was kept in place for a week and when the patient returned to the office it was removed and the 30-Tunisian Stephanie catheter entered readily. However, at home that same evening and afternoon on 10/03/2016 and 10/04/2016 she had marked inability inserting any catheter. Accordingly, she underwent pouch endoscopy on 10/05/2016, which did not require any sedation and the small endoscope entered readily. She was advised to intubate with a 26-Tunisian Brock catheter on a regular basis and then graduate to 28-Tunisian and ultimately 30-Tunisian. When the patient was seen in the office on 10/09/2016, however, her stoma had retracted from the junction of the skin and was retracted into the subcutaneous tissues and it was clear that this would not be adequate and she would continue to have pain and difficulty with intubation and would now require a laparotomy with a major revision of her pouch, which is the reason for this admission. MEDICATIONS: Aspirin 81 mg daily, Celebrex and ibuprofen for low back pain. ALLERGIES: None. OPERATIONS: In addition to the above, she has undergone a knee and elbow surgery. REVIEW OF SYSTEMS: The patient has a history of atrial fibrillation and underwent ablation in 2012. The patient had a recent borderline or equivocal stress test and underwent CT scan of the chest in late August 2016, which was unremarkable. PHYSICAL EXAMINATION: GENERAL: The patient is 5 foot 8 inches and approximately 140 pounds. HEENT: Within normal limits. LUNGS: Clear. HEART: Regular rhythm. BREASTS: Without masses. ABDOMEN: Soft and flat with a long midline scar and the stoma of the Kock pouch low in the right lower quadrant with retraction of the mucocutaneous junction down into the abdominal wall. PELVIC: Per primary care physician recently. RECTAL: Status post proctectomy. EXTREMITIES: Without edema. Pulses 2+ femoral to pedal bilaterally. NEUROLOGIC: Physiologic. IMPRESSION: 1. Malfunctioning Kock pouch with painful and difficult intubations and retracted stoma. 2. History of ulcerative colitis. 3. Status post multiple abdominal operations. 3.1. Proctocolectomy and Kock pouch continent ileostomy in 1984. 3.2. Revision of Kock pouch nipple valve in 1985. 3.3. Revision of Kock pouch stoma stricture in 2007. 3.4. Revision of Kock pouch stoma and access segment in depth in 2016. PLAN: The patient will be admitted and will undergo insertion of a dual lumen PICC line, insertion of a catheter into her Kock pouch to continuous gravity drainage, intravenous hydration during a bowel prep and preoperative broad-spectrum intravenous antibiotics and subcutaneous heparin. I have had a full discussion with the patient regarding the nature of her condition, the nature of the surgery including the options of preserving of existing pouch and creating a new valve and stoma with possible relocation of the stoma to the left lower quadrant, as well as the option of resection of this pouch if it cannot be revised with creation of an entirely new continent ileostomy performing the Jacobson version of the Kock pouch, and the third option of resecting this pouch and creating a conventional La ileostomy requiring an external appliance, which the patient wishes to avoid if at all possible. I have discussed the risks of surgery including bleeding, infection, injury to adjacent structures or organs, recurrent difficulties with the revised pouch or a new pouch that could require additional operations as is the case for conventional ileostomy, deep vein thrombosis despite prophylaxis, anesthetic reactions, scarring, etc. All questions have been answered. She understands and agrees to proceed. Vishnu Cuevas M.D. DR: TAYLOR JOB#: [id number] CC:
[~2016-10-12] VITALS: Ht 172.7 cm; Wt 62.1 kg
[~2016-10-12 09:56] MED LIST changes: -AMBIEN5 MG ORAL; -ATIVAN1 MG ORAL; -NORCO 5-325 TA1 EACH ORAL; -OMEGA 3 FISH O1 EAC1 PO
[2016-10-12] MEDS ORDERED: Heparin 2000 units/Ns 1000ml INJ ONE (10:45)
[2016-10-12 10:51] VITALS: BP 133/94
--- NOTE | 2016-10-12 10:56 | Anethesia Preoperative Eval ---
Anesthesia Pre-op PMH/ROS General Date of Evaluation: Oct 12, 2016 Anesthesiologist: Giorgi ASA Score: ASA 2 Mallampati Score Class I : Soft palate, uvula, fauces, pillars visible Class II: Soft palate, uvula, fauces visible Class III: Soft palate, base of uvula visible Class IV: Only hard plate visible Mallampati Classification: Class II Surgeon: Mason Diagnosis: Malfunctioning Barnnett Pouch Surgical Procedure: Revision kock pouch Anesthesia History: none, other - h/o ocular migraines s/p general anesthesia Family History: no anesthesia problems Allergies: Uncoded Allergies: hay fever (Allergy, Unknown, 09/24/16) Medications: see eMAR Past Medical History Cardiovascular: Reports: arrhythmia - h/o afib s/p ablatiton, Denies: CAD, HTN, VT, other, valve dz Pulmonary: Denies: COPD, BRITTNEY, asthma, other Gastrointestinal/Genitourinary: Reports: other - ulcerative colitis, Denies: CRI, ESRD, GERD Neurologic/Psychiatric: Reports: depression/anxiety, Denies: CVA, TIA, dementia, other Endocrine: Denies: DM, hypothyroidism, other, steroids HEENT: Denies: [place] (L), [place] (R), cataract (L), cataract (R), glaucoma, other Hematology/Immune: Denies: DVT, anemia, bleeding disorder, other Musculoskeletal/Integumentary: Denies: DDD, DJD, OA, RA, edema, other PSxH Narrative: BCIR, right knee arthroscopy, left elbow arthroscopy Anesthesia Pre-op Phys. Exam Physician Exam Last Vital Signs Date Time Temp Pulse Resp B/P Pulse Ox O2 Delivery O2 Flow Rate FiO2 10/12/16 10:51 97.9 66 20 133/94 99 Room Air Constitutional: NAD Cardiovascular: RRR Respiratory: CTA Airway Exam Mallampati Score: Class I Anesthesia Pre-op A/P Labs see chart Studies Pre-op Studies: EKG Risk Assessment & Plan Assessment: ASA II Plan: GA. Patient reports that Dilaudid works best for pain control. No effective pain control with morphine. Status Change Before Surgery: No Pre-Antibiotics Drug: TATIANA MULLIGAN M.D. Oct 12, 2016 10:56
[2016-10-12] MEDS ORDERED: OMEGA 3 FISH O1 EAC1 PO (11:20)
[2016-10-12] MEDS ORDERED: Zolpidem 5mg tab ORAL PRN (11:30)
[2016-10-12 11:31] LABS: BASOPHILS % (AUTO) 2.1 % (0.0-2.0); EOSINOPHILS % (AUTO) 1.9 % (0.0-3.0); LYMPHOCYTES % (AUTO) 29.6 % (20.0-45.0); MEAN CORPUSCULAR HEMOGLOBIN 30.8 PG (27.0-31.0); MEAN CORPUSCULAR HGB CONC 32.9 G/DL (32.0-36.0); MEAN CORPUSCULAR VOLUME 94 FL (80-99); MEAN PLATELET VOLUME 6.7 FL (6.5-10.1); MONOCYTES % (AUTO) 6.9 % (1.0-10.0); NEUTROPHILS % (AUTO) 59.6 % (45.0-75.0); PLATELET COUNT 276 K/UL (150-450); RED BLOOD COUNT 4.65 M/UL (4.20-5.40); RED CELL DISTRIBUTION WIDTH 11.4 % (11.6-14.8); WHITE BLOOD COUNT 6.4 K/UL (4.8-10.8)
[2016-10-12 11:49] LABS: PROTHROMBIN TIME 10.5 SEC (9.30-11.50)
--- NOTE | 2016-10-12 11:51 | General Progress Note ---
Progress Note Progress Note H&P dictated. 26 Fr Brock inserted into Kock pouch and connected to gravity drainage bag. Abdomen soft Full discussion again with patient and re nature of surgery, options and risks; all questions answered. LOC HUMPHRIES Oct 12, 2016 11:51
[2016-10-12 11:55] LABS: ALANINE AMINOTRANSFERASE 15 U/L (3-33); ALBUMIN/GLOBULIN RATIO 1.6 (1.0-2.7); ANION GAP 14 (5-15); ASPARTATE AMINO TRANSFERASE 20 U/L (5-40); CALCIUM 9.7 mg/dL (8.6-10.2); CARBON DIOXIDE 27 mEQ/L (20-30); CHLORIDE 98 mEQ/L (98-107); CREATININE 0.8 mg/dL (0.5-0.9); GLOMERULAR FILTRATION RATE > 60 mL/min (>60); HEMOLYSIS 15; POTASSIUM 4.5 mEQ/L (3.4-4.9); SODIUM 139 mEQ/L (135-145); TOTAL PROTEIN 7.2 g/dL (6.6-8.7)
[2016-10-12] MEDS ORDERED: Lidocaine 1% Plain 30 ml INJ ONE (12:00)
[2016-10-12] MEDS ORDERED: Heparin 2000 units/Ns 1000ml IV ONE (12:00)
[2016-10-12] MEDS ORDERED: Sodium Bicarbonate 8.4% 50ml Inj IV ONE (12:00)
[2016-10-12] MEDS: Neomycin Sulfate 500mg Tab ORAL SCH ×3 (13:09→19:26)
[2016-10-12 14:11] LABS: APPEARANCE,URINE CLEAR; KETONES,URINE 1+ (NEGATIVE); LEUKOCYTE ESTERASE ,URINE NEGATIVE (NEGATIVE); NITRITE,URINE NEGATIVE (NEGATIVE); PH,URINE 7 (4.5-8.0); PROTEIN,URINE NEGATIVE (NEGATIVE); UROBILINOGEN,URINE NORMAL MG/DL (0.0-1.0)
[2016-10-12 14:28] LABS: BACTERIA,URINE OCCASIONAL /HPF; RBC,URINE 0-2 /HPF (0 - 2); SQUAMOUS EPITHELIAL CELL,UR OCCASIONAL /LPF (NONE/OCC); WBC,URINE 0-2 /HPF (0 - 2)
--- NOTE | 2016-10-12 15:49 | Diagnostic Imaging Report ---
Indications: Central IV access required for intravenous therapy Technique: The procedure indications, risks, and alternatives were explained to the patient who understands and gives consent to proceed. Strict aseptic technique was utilized, including hand washing, use of hat and mask, use of sterile gown and gloves, sterile ultrasound gel and probe cover, prepping of left arm skin with 2% chlorhexidine solution, and application of full body sterile barrier over this area. Skin and subcutaneous soft tissues were infiltrated with 1% lidocaine and sodium bicarbonate. A small dermatotomy was made, through which the patent, adequate size left basilic vein was punctured percutaneously under direct sonographic guidance with a 21-gauge needle. Exchange was made over a 0.018 inch guidewire for a 5 [place] peel-away sheath. A Pick1 Power-PICC 5 [place] dual lumen central venous catheter was cut to appropriate length, then advanced through the sheath over the guidewire under direct fluoroscopic guidance into the superior vena cava. Guidewire and sheath were removed. Both catheter ports were aspirated, then flushed with heparinized saline. Final image was obtained. Catheter was secured the skin with adhesive dressing. Patient tolerated procedure well without immediate complications. Total fluoroscopy time: 0.1 minutes. Dose-area product: 2.6 dGy-cm2 Findings: Final image demonstrates tip of the central venous catheter at the level of superior vena cava-right atrial junction, 40 cm in from the skin. Both ports aspirate and flush freely. IMPRESSION: Placement of peripherally inserted central venous catheter via left basilic vein, working well.
[2016-10-12 16:00] VITALS: BP 134/89
[2016-10-12] MEDS: D5 1/2NS w/KCl 20mEq 1,000 ML IV SCH (17:21)
[2016-10-12] MEDS ORDERED: Simethicone 80mg tab GT PRN (17:45)
[2016-10-12] MEDS ORDERED: Simethicone Drops 80mg/1.2ml ORAL PRN ×3 (18:15)
[2016-10-12 19:00] VITALS: BP 134/94
[2016-10-12] MEDS ORDERED: Simethicone 80mg tab ORAL PRN (19:00)
[2016-10-13] VITALS (18 sets, daily range): BP systolic 107–141; BP diastolic 57–99
[2016-10-13] MEDS: D5 1/2NS w/KCl 20mEq 1,000 ML IV SCH (05:11)
[2016-10-13] MEDS: metroNIDAZOLE 500mg 100 ML IVPB SCH (05:12)
[2016-10-13] MEDS: Ampicillin/Sulbactam Sod 3 GM in NS 55 ML IVPB SCH (05:12)
[2016-10-13] MEDS ORDERED: Heparin 5000 units/ml inj SUBQ ONE (07:30)
[2016-10-13] MEDS ORDERED: Bacitracin 50000 Units Vial ONE (08:47)
--- NOTE | 2016-10-13 08:53 | Pre-Procedure Note/Attestation ---
Pre-Procedure Note/Attestation Complete Prior to Procedure Planned Procedure: not applicable Procedure Narrative: Laparotomy, revision Kock Pouch, gastrostomy Indications for Procedure Pre-Operative Diagnosis: Malfunctioning Kock Pouch Continent Ileostomy Attestation I attest that I discussed the nature of the procedure; its benefits; risks and complications; and alternatives (and the risks and benefits of such alternatives ), prior to the procedure, with the patient (or the patient's legal business services representative). I attest that, if there was a reasonable possibility of needing a blood transfusion, the patient (or the patient's legal business services representative) was given the [facility] standardized written summary, pursuant to the [place] Blood Safety Act ([place] Health and Safety Code # 1645, as amended). I attest that I re-evaluated the patient just prior to the surgery and that there has been no change in the patient's H&P, except as documented below: none LOC HUMPHRIES Oct 13, 2016 08:53
[2016-10-13] MEDS ORDERED: LR 1000ml ONE (09:00)
[2016-10-13] MEDS ORDERED: Zemuron 50mg/5ml Inj IV ONE (09:00)
[2016-10-13] MEDS ORDERED: Dexamethasone 4mg/ml vial ONE (09:00)
[2016-10-13] MEDS ORDERED: ePHEDrine 50mg/ml Inj ONE (09:00)
[2016-10-13] MEDS ORDERED: Propofol 10mg/ml 20ml IV ONE (09:00)
[2016-10-13] MEDS ORDERED: Neostigmine 1mg/ml 10ml Inj ONE (09:00)
[2016-10-13] MEDS ORDERED: fentaNYL 100 mcg/2 mL IV ONE (09:00)
[2016-10-13] MEDS ORDERED: NS Irrig 1000ml ONE (09:00)
[2016-10-13] MEDS ORDERED: Sterile Water Irrig 1000ml IRRIG ONE (09:00)
[2016-10-13] MEDS ORDERED: Midazolam 2mg/2ml Inj ONE ×2 (09:00→13:34)
[2016-10-13] MEDS ORDERED: Glycopyrrolate 0.2mg/ml 1ml Vial ONE (09:00)
[2016-10-13] MEDS ORDERED: LR 1000ml 1,000 ML IVLG SCH (10:34)
--- NOTE | 2016-10-13 10:37 | Anethesia Preoperative Eval ---
Anesthesia Pre-op PMH/ROS General Date of Evaluation: Oct 13, 2016 Time of Evaluation: 09:25 Anesthesiologist: Hebert Mallampati Score Class I : Soft palate, uvula, fauces, pillars visible Class II: Soft palate, uvula, fauces visible Class III: Soft palate, base of uvula visible Class IV: Only hard plate visible Mallampati Classification: Class II Surgeon: Mason Diagnosis: malfunctioning kock pouch Surgical Procedure: laparatomy revision of kock pouch Anesthesia History: none Family History: no anesthesia problems Allergies: Uncoded Allergies: hay fever (Allergy, Unknown, 09/24/16) Medications: see eMAR Past Medical History Cardiovascular: Reports: arrhythmia Pulmonary: Denies: COPD, [place], asthma, other Gastrointestinal/Genitourinary: Reports: other - Ulcerative colitis Neurologic/Psychiatric: Denies: CVA, TIA, dementia, depression/anxiety, other Endocrine: Denies: DM, hypothyroidism, other, steroids HEENT: Denies: [place] (L), [place] (R), cataract (L), cataract (R), glaucoma, other Hematology/Immune: Denies: DVT, anemia, bleeding disorder, other Musculoskeletal/Integumentary: Denies: DDD, DJD, OA, RA, edema, other PMH Narrative: Hx of Afib, UC PSxH Narrative: afib ablation, kock pouch with multiple revisions, Anesthesia Pre-op Phys. Exam Physician Exam Last Vital Signs Date Time Temp Pulse Resp B/P Pulse Ox O2 Delivery O2 Flow Rate FiO2 10/13/16 08:00 97.7 74 20 125/86 96 Room Air Constitutional: NAD Neurologic: CN 2-12 intact Cardiovascular: RRR Respiratory: CTA Gastrointestinal: S/NT/ND Airway Exam Mallampati Score: Class I MO: full ROM: full Teeth: intact Dentures: no lower, no upper Anesthesia Pre-op A/P Labs Hematology Test 10/12/16 11:05 White Blood Count 6.4 K/UL (4.8-10.8) Red Blood Count 4.65 M/UL (4.20-5.40) Hemoglobin 14.3 G/DL (12.0-16.0) Hematocrit 43.6 % (37.0-47.0) Mean Corpuscular Volume 94 FL (80-99) Mean Corpuscular Hemoglobin 30.8 PG (27.0-31.0) Mean Corpuscular Hemoglobin Concent 32.9 G/DL (32.0-36.0) Red Cell Distribution Width 11.4 % (11.6-14.8) L Platelet Count 276 K/UL (150-450) Mean Platelet Volume 6.7 FL (6.5-10.1) Neutrophils (%) (Auto) 59.6 % (45.0-75.0) Lymphocytes (%) (Auto) 29.6 % (20.0-45.0) Monocytes (%) (Auto) 6.9 % (1.0-10.0) Eosinophils (%) (Auto) 1.9 % (0.0-3.0) Basophils (%) (Auto) 2.1 % (0.0-2.0) H Coagulation Test 10/12/16 11:05 Prothrombin Time 10.5 SEC (9.30-11.50) Prothromb Time International Ratio 1.0 (0.9-1.1) Activated Partial Thromboplast Time 26 SEC (23-33) Chemistry Test 10/12/16 11:05 Sodium Level 139 mEQ/L (135-145) Potassium Level 4.5 mEQ/L (3.4-4.9) Chloride Level 98 mEQ/L (98-107) Carbon Dioxide Level 27 mEQ/L (20-30) Anion Gap 14 (5-15) Blood Urea Nitrogen 11 mg/dL (7-23) Creatinine 0.8 mg/dL (0.5-0.9) Estimat Glomerular Filtration Rate > 60 mL/min (>60) Glucose Level 107 mg/dL (74-106) H Calcium Level 9.7 mg/dL (8.6-10.2) Total Bilirubin 0.6 mg/dL (0.0-1.2) Aspartate Amino Transf (AST/SGOT) 20 U/L (5-40) Alanine Aminotransferase (ALT/SGPT) 15 U/L (3-33) Alkaline Phosphatase 63 U/L (35-104) Total Protein 7.2 g/dL (6.6-8.7) Albumin 4.5 g/dL (3.5-5.2) Globulin 2.7 g/dL Albumin/Globulin Ratio 1.6 (1.0-2.7) JESSICA MURDOCK D.O. Oct 13, 2016 10:37
[2016-10-13] MEDS ORDERED: Meperidine 25mg/ml Inj IV PRN (10:45)
[2016-10-13] MEDS ORDERED: Labetalol 5mg/ml 20ml vial IV PRN (10:45)
[2016-10-13] MEDS ORDERED: DiphenhydrAMINE 50mg/ml Inj IVP PRN (10:45)
[2016-10-13] MEDS: Ampicillin/Sulbactam Sod 3 GM in NS 110 ML IV SCH ×2 (12:00→18:24)
[2016-10-13] MEDS: metroNIDAZOLE 500mg 100 ML IV SCH ×2 (12:00→18:24)
--- NOTE | 2016-10-13 13:13 | Immediate Post-Op Evaluation ---
Immediate Post-Op Evalulation Immediate Post-Op Evalulation Procedure: Laparotomy revision of kock pouch with relocation of stoma, gastrostomy Date of Evaluation: Oct 13, 2016 Time of Evaluation: 13:11 IV Fluids: 1600ml Blood Products: none Estimated Blood Loss: 100ml Urinary Output: 100ml Blood Pressure Systolic: 128 Blood Pressure Diastolic: 87 Pulse Rate: 98 Respiratory Rate: 18 O2 Sat by Pulse Oximetry: 100 Temperature (Fahrenheit): 98 Pain Score (1-10): 0 Nausea: No Vomiting: No Complications none Patient Status: awake, reacts Hydration Status: adequate JESSICA MURDOCK D.O. Oct 13, 2016 13:13
[2016-10-13] MEDS ORDERED: PCA HYDROmorphone 1mg/ml 30 ML IV PRN ×2 (13:15→21:00)
[2016-10-13] MEDS ORDERED: Naloxone 0.4mg/ml Inj IVP PRN (13:15)
[2016-10-13] MEDS ORDERED: Rate Change PCA 1 Each MISC PRN (13:15)
--- NOTE | 2016-10-13 13:26 | Brief Operative Note ---
Immediate Post Operative Note Operative Note Pre-op Diagnosis: Malfunctioning Kock Pouch Continent Ileostomy Procedure: Laparotomy with revision of Kock Pouch and relocation of stoma to LLQ; gastrostomy Post-op Diagnosis: same Post-op Diagnosis: same as pre-op Findings: consistent w/pre-op dx studies Surgeon: yady Tower Truck Driver: nicholas Anesthesiologist: karen Anesthesia: general Specimen: yes - Kock pouch stoma; bowel trimmings Complications: none Condition: stable Fluids: see anesthesia record Estimated Blood Loss: volume - 100ml Drains: other - 28 Brock to Kock Pouch; 18 Fr gastrostomy Implant(s) used?: Yes - Vicryl mesh sling LOC HUMPHRIES Oct 13, 2016 13:26
[2016-10-13] MEDS: Hydromorphone 0.5mg/0.5ml inj IVP PRN ×2 (13:28→13:46)
--- NOTE | 2016-10-13 13:35 | 48 Hour Post Anesthesia Eval ---
Post Anesthesia Evaluation Procedure: Laparotomy revision of kock pouch with relocation of stoma, gastrostomy Date of Evaluation: Oct 13, 2016 Time of Evaluation: 14:54 Blood Pressure Systolic: 126 0: 81 Pulse Rate: 77 Respiratory Rate: 23 Temperature (Fahrenheit): 98.4 O2 Sat by Pulse Oximetry: 100 Airway: patent Nausea: No Vomiting: No Pain Intensity: 2 Hydration Status: adequate Cardiopulmonary Status: Stable Mental Status/LOC: patient returned to baseline Follow-up Care/Observations: 0 Post-Anesthesia Complications: 0 Follow-up care needed: N/A Bruce Tidwell MD Oct 13, 2016 13:35
[2016-10-13] MEDS ORDERED: Midazolam 2mg/2ml Inj IVP PRN (13:45)
[2016-10-13] MEDS: PCA shift volume MISC SCH ×2 (15:00→23:00)
[2016-10-13] MEDS: D5 1/4NS w/KCl 20mEq 1,000 ML IV SCH (16:28)
[2016-10-13] MEDS: DiphenhydrAMINE 50mg/ml Inj IVP PRN (19:51)
[2016-10-14] VITALS: BP 115/69
[2016-10-14] MEDS: Ampicillin/Sulbactam Sod 3 GM in NS 55 ML IVPB SCH (00:05)
[2016-10-14] MEDS: metroNIDAZOLE 500mg 100 ML IV SCH ×5 (00:07→23:57)
[2016-10-14] MEDS: Ampicillin/Sulbactam Sod 3 GM in NS 110 ML IV SCH ×2 (00:12→06:00)
[2016-10-14] MEDS: D5 1/4NS w/KCl 20mEq 1,000 ML IV SCH ×3 (02:34→20:40)
[2016-10-14] MEDS: DiphenhydrAMINE 50mg/ml Inj IVP PRN ×4 (02:34→17:24)
[2016-10-14] MEDS: LORazepam 1mg tab SL PRN ×2 (02:51→03:03)
[2016-10-14 04:00] VITALS: BP 122/75
[2016-10-14] MEDS: metroNIDAZOLE 500mg 100 ML IVPB SCH (06:00)
[2016-10-14] MEDS: Acetaminophen 650mg/20.3ml GT PRN (06:38)
[2016-10-14] MEDS: PCA shift volume MISC SCH ×3 (07:26→23:15)
[2016-10-14 07:40] LABS: BASOPHILS % (AUTO) 0.5 % (0.0-2.0); EOSINOPHILS % (AUTO) 0.2 % (0.0-3.0); LYMPHOCYTES % (AUTO) 12.1 % (20.0-45.0); MEAN CORPUSCULAR HEMOGLOBIN 31.6 PG (27.0-31.0); MEAN CORPUSCULAR HGB CONC 33.7 G/DL (32.0-36.0); MEAN CORPUSCULAR VOLUME 94 FL (80-99); MEAN PLATELET VOLUME 6.9 FL (6.5-10.1); MONOCYTES % (AUTO) 7.5 % (1.0-10.0); NEUTROPHILS % (AUTO) 79.7 % (45.0-75.0); PLATELET COUNT 214 K/UL (150-450); RED BLOOD COUNT 4.04 M/UL (4.20-5.40); RED CELL DISTRIBUTION WIDTH 11.6 % (11.6-14.8); WHITE BLOOD COUNT 11.5 K/UL (4.8-10.8)
[2016-10-14 07:52] LABS: ANION GAP 11 (5-15); CALCIUM 8.6 mg/dL (8.6-10.2); CARBON DIOXIDE 28 mEQ/L (20-30); CHLORIDE 100 mEQ/L (98-107); CREATININE 0.7 mg/dL (0.5-0.9); GLOMERULAR FILTRATION RATE > 60 mL/min (>60); HEMOLYSIS 3; POTASSIUM 3.8 mEQ/L (3.4-4.9); SODIUM 139 mEQ/L (135-145)
[2016-10-14 08:00] VITALS: BP 122/73
--- NOTE | 2016-10-14 08:46 | General Progress Note ---
Progress Note Progress Note AVSS Comfortable with [employer] Dilaudid - basal infusion d/c'd last night due to confusion No Incentive Spirometer in room despite yesterday's orders Chest clear but decreased expansion. Cor - reg rhythm Abdomen soft, mild distention, incisions clean, stoma pink Urinej 1950 Gastrostomy 110 BCIR ileo - scant, sero-sang WBC 11,500 Hgb 12.8 BUN 7 Cr 0.7 Imp.Ileus Atelectasis Plan; NPO Pulmonary toilet Mobilize f/u labs LOC HUMPHRIES Oct 14, 2016 08:46
[2016-10-14 12:06] VITALS: BP 128/77
[2016-10-14] MEDS: Ampicillin/Sulbactam Sod 3 GM in D5W 110 ML IV SCH ×2 (13:59→20:40)
[2016-10-14 16:00] VITALS: BP 120/82
[2016-10-14] MEDS ORDERED: NS Irrig 1000ml ONE (17:31)
[2016-10-14 20:00] VITALS: BP 142/85
[2016-10-15] MEDS: DiphenhydrAMINE 50mg/ml Inj IVP PRN ×2 (00:03→04:45)
[2016-10-15 00:38] VITALS: BP 132/79
[2016-10-15] MEDS: Ampicillin/Sulbactam Sod 3 GM in D5W 110 ML IV SCH ×4 (02:07→20:40)
[2016-10-15] MEDS: Acetaminophen 650mg/20.3ml GT PRN (02:51)
[2016-10-15 04:00] VITALS: BP 148/89
[2016-10-15 05:08] LABS: BASOPHILS % (AUTO) 0.8 % (0.0-2.0); LYMPHOCYTES % (AUTO) 8.5 % (20.0-45.0); MEAN CORPUSCULAR HEMOGLOBIN 32.4 PG (27.0-31.0); MEAN CORPUSCULAR HGB CONC 33.8 G/DL (32.0-36.0); MEAN CORPUSCULAR VOLUME 96 FL (80-99); MEAN PLATELET VOLUME 7.2 FL (6.5-10.1); MONOCYTES % (AUTO) 7.7 % (1.0-10.0); PLATELET COUNT 138 K/UL (150-450); RED BLOOD COUNT 2.79 M/UL (4.20-5.40); RED CELL DISTRIBUTION WIDTH 11.5 % (11.6-14.8); WHITE BLOOD COUNT 8.3 K/UL (4.8-10.8)
[2016-10-15] MEDS ORDERED: Pantoprazole Inj IVP ONE (05:15)
[2016-10-15 05:30] LABS: CALCIUM 7.4 mg/dL (8.6-10.2); CARBON DIOXIDE 24 mEQ/L (20-30); CHLORIDE 91 mEQ/L (98-107); CREATININE 0.6 mg/dL (0.5-0.9); GLOMERULAR FILTRATION RATE > 60 mL/min (>60); SODIUM 125 mEQ/L (135-145)
[2016-10-15] MEDS: metroNIDAZOLE 500mg 100 ML IV SCH ×3 (05:32→18:22)
[2016-10-15] MEDS: D5 1/4NS w/KCl 20mEq 1,000 ML IV SCH ×2 (05:34→16:00)
[2016-10-15 05:40] LABS: ANION GAP 10 (5-15)
[2016-10-15 05:45] LABS: HEMOLYSIS 16; IRON 24 ug/dL (37-145); TOTAL IRON BINDING CAPACITY 169 ug/dL (250-400)
[2016-10-15] MEDS: PCA shift volume MISC SCH ×3 (07:18→23:35)
[2016-10-15 07:52] LABS: ANION GAP 13 (5-15); CALCIUM 6.1 mg/dL (8.6-10.2); CARBON DIOXIDE 22 mEQ/L (20-30); CHLORIDE 105 mEQ/L (98-107); CREATININE 0.4 mg/dL (0.5-0.9); GLOMERULAR FILTRATION RATE > 60 mL/min (>60); HEMOLYSIS 4; POTASSIUM 2.8 mEQ/L (3.4-4.9); SODIUM 140 mEQ/L (135-145)
[2016-10-15 08:00] VITALS: BP 121/77
[2016-10-15 08:46] LABS: ALANINE AMINOTRANSFERASE 11 U/L (3-33); ALBUMIN/GLOBULIN RATIO 1.4 (1.0-2.7); ANION GAP 12 (5-15); ASPARTATE AMINO TRANSFERASE 21 U/L (5-40); CALCIUM 8.7 mg/dL (8.6-10.2); CARBON DIOXIDE 28 mEQ/L (20-30); CHLORIDE 96 mEQ/L (98-107); CREATININE 0.7 mg/dL (0.5-0.9); GLOMERULAR FILTRATION RATE > 60 mL/min (>60); HEMOLYSIS 6; POTASSIUM 3.9 mEQ/L (3.4-4.9); SODIUM 136 mEQ/L (135-145)
[2016-10-15] MEDS ORDERED: Vitamin B12 1000mcg/ml Inj IM ONE (10:00)
[2016-10-15] MEDS ORDERED: PCA HYDROmorphone 1mg/ml 30 ML IV PRN (10:00)
--- NOTE | 2016-10-15 10:03 | General Progress Note ---
Progress Note Progress Note AVSS Had transient left anterior chest cramping/spasm pain - not pressure or heaviness, no resp. symptoms - relieved with Protonix IV Good IS effort - slight chest congestion - encouraged to cough Abdomen soft, mildly distended, incisions clean, stoma pink Urine 2750 Gastrostomy 245 Kock pouch ileo - scant serous WBC down 8300 Hgb down 9.0 MBP-wnl Albumin 3.5 Iron 24 (37-145) B12 378 (211-946) Imp. Ileus Anemia with severe iron deficiency, low B12 level Plan: NPO Continue Brock (pelvic dissection) Venofer 100mg IV daily B12 1000mcg IM today Ambulate BID LOC [place] Oct 15, 2016 10:03
[2016-10-15] MEDS ORDERED: Naloxone 0.4mg/ml Inj IVP PRN (10:05)
[2016-10-15] MEDS ORDERED: Rate Change PCA 1 Each MISC PRN (10:15)
[2016-10-15] MEDS: Ketorolac 30mg Inj IV PRN ×2 (10:38→16:45)
[2016-10-15 12:00] VITALS: BP 136/84
[2016-10-15 16:00] VITALS: BP 133/76
[2016-10-15 20:21] VITALS: BP 127/81
[2016-10-15] MEDS: Iron Sucrose 100 MG in NS 55 ML IVPB SCH (21:50)
[2016-10-15] MEDS: LORazepam 1mg tab SL PRN (23:30)
[2016-10-16] VITALS (7 sets, daily range): BP systolic 122–138; BP diastolic 76–85
[2016-10-16] MEDS: metroNIDAZOLE 500mg 100 ML IV SCH ×5 (00:05→23:38)
[2016-10-16] MEDS: DiphenhydrAMINE 50mg/ml Inj IVP PRN (00:06)
[2016-10-16] MEDS: Ampicillin/Sulbactam Sod 3 GM in D5W 110 ML IV SCH ×4 (02:00→19:52)
[2016-10-16] MEDS: D5 1/4NS w/KCl 20mEq 1,000 ML IV SCH ×3 (03:00→16:46)
[2016-10-16] MEDS: Ketorolac 30mg Inj IV PRN ×2 (05:48→12:00)
[2016-10-16] MEDS: PCA shift volume MISC SCH ×3 (07:11→23:15)
[2016-10-16 07:36] LABS: ANION GAP 11 (5-15); CALCIUM 8.5 mg/dL (8.6-10.2); CARBON DIOXIDE 29 mEQ/L (20-30); CHLORIDE 99 mEQ/L (98-107); CREATININE 0.7 mg/dL (0.5-0.9); GLOMERULAR FILTRATION RATE > 60 mL/min (>60); HEMOLYSIS 4; POTASSIUM 3.8 mEQ/L (3.4-4.9); SODIUM 139 mEQ/L (135-145)
[2016-10-16 07:41] LABS: BASOPHILS % (AUTO) 0.8 % (0.0-2.0); MEAN CORPUSCULAR HEMOGLOBIN 31.8 PG (27.0-31.0); MEAN CORPUSCULAR VOLUME 93 FL (80-99); MEAN PLATELET VOLUME 6.9 FL (6.5-10.1); MONOCYTES % (AUTO) 7.8 % (1.0-10.0); NEUTROPHILS % (AUTO) 67.4 % (45.0-75.0); PLATELET COUNT 193 K/UL (150-450); RED BLOOD COUNT 3.98 M/UL (4.20-5.40); RED CELL DISTRIBUTION WIDTH 11.2 % (11.6-14.8); WHITE BLOOD COUNT 8.1 K/UL (4.8-10.8)
[2016-10-16] MEDS: Pantoprazole Inj IVP SCH (08:29)
[2016-10-16] MEDS ORDERED: Naloxone 0.4mg/ml Inj IVP PRN (09:04)
--- NOTE | 2016-10-16 09:14 | General Progress Note ---
Progress Note Progress Note AVSS Feeling much better. Abdomen mildly distended, soft, incisions clean, stoma pink Urine 3325 Gastrostomy 390 Kock pouch ileo 40 (enteric) WBC 8100 Hgb up 12.6 BU"Nj 11 Cr 0.6 Imp. Ileus Plan: Continue NPO Ambulate 3xdaily LOC [place] Oct 16, 2016 09:14
[2016-10-16] MEDS ORDERED: Rate Change PCA 1 Each MISC PRN (09:15)
[2016-10-16] MEDS: PCA HYDROmorphone 1mg/ml 30 ML IV PRN (13:42)
[2016-10-16] MEDS ORDERED: NS Irrig 1000ml ONE (15:53)
[2016-10-16] MEDS: LORazepam 1mg tab SL PRN (16:02)
[2016-10-16] MEDS ORDERED: Ketorolac 30mg Inj IV STA (16:20)
--- NOTE | 2016-10-16 16:22 | General Progress Note ---
Progress Note Progress Note Was doing well but fell asleep and awaken with a total body muscle spasm, legs, trunk and abdominal cramping. Abdomen soft, catheters in good position, Kock pouch ileo catheter flushes readily with 20cc NS Imp. Cramping due to ileus Plan: IMMIGRATION SPECIALIST, Toradol prn, Ativan SL LOC Wu Oct 16, 2016 16:22
[2016-10-16] MEDS: Iron Sucrose 100 MG in NS 55 ML IVPB SCH (20:31)
[2016-10-17] MEDS: D5 1/4NS w/KCl 20mEq 1,000 ML IV SCH ×3 (01:19→22:14)
[2016-10-17] MEDS: Ampicillin/Sulbactam Sod 3 GM in D5W 110 ML IV SCH ×4 (01:19→19:48)
[2016-10-17] MEDS: LORazepam 1mg tab SL PRN ×2 (01:32→12:05)
[2016-10-17 04:00] VITALS: BP 133/76
[2016-10-17] MEDS: metroNIDAZOLE 500mg 100 ML IV SCH (04:58)
[2016-10-17] MEDS: PCA shift volume MISC SCH ×3 (07:05→23:28)
[2016-10-17] MEDS: Pantoprazole Inj IVP SCH (07:41)
[2016-10-17 08:00] VITALS: BP 139/86
--- NOTE | 2016-10-17 08:37 | General Progress Note ---
Progress Note Progress Note AVSS Feeling better. Ambulating abdomen mildly distended,soft,healing well Urine 3350 Gastrostomy 290 Kock pouch ileo 100 Imp.: Slowly resolving ileus Plan; Continue NPO d/c Flagyl remove urinary Brock early AM tomorrow labs in LOC [place] Oct 17, 2016 08:37
[2016-10-17] MEDS: Ketorolac 30mg Inj IV PRN ×2 (11:55→18:55)
[2016-10-17 12:09] VITALS: BP 148/90
[2016-10-17] MEDS: PCA HYDROmorphone 1mg/ml 30 ML IV PRN (13:36)
[2016-10-17 16:00] VITALS: BP 131/91
[2016-10-17 20:00] VITALS: BP 127/81
[2016-10-17] MEDS: Iron Sucrose 100 MG in NS 55 ML IVPB SCH (20:51)
[2016-10-18] VITALS: BP 140/91
[2016-10-18] MEDS: Ampicillin/Sulbactam Sod 3 GM in D5W 110 ML IV SCH ×2 (01:56→07:42)
[2016-10-18] MEDS: Ketorolac 30mg Inj IV PRN ×3 (01:56→14:12)
[2016-10-18] MEDS: LORazepam 1mg tab SL PRN ×4 (02:08→21:52)
[2016-10-18 04:00] VITALS: BP 127/84
[2016-10-18 07:15] LABS: ANION GAP 13 (5-15); CALCIUM 9.2 mg/dL (8.6-10.2); CARBON DIOXIDE 25 mEQ/L (20-30); CHLORIDE 102 mEQ/L (98-107); CREATININE 0.6 mg/dL (0.5-0.9); GLOMERULAR FILTRATION RATE > 60 mL/min (>60); HEMOLYSIS 3; POTASSIUM 3.9 mEQ/L (3.4-4.9); SODIUM 140 mEQ/L (135-145)
[2016-10-18 07:16] LABS: BASOPHILS % (AUTO) 1.3 % (0.0-2.0); EOSINOPHILS % (AUTO) 6.2 % (0.0-3.0); LYMPHOCYTES % (AUTO) 20.1 % (20.0-45.0); MEAN CORPUSCULAR HEMOGLOBIN 33.3 PG (27.0-31.0); MEAN CORPUSCULAR HGB CONC 35.9 G/DL (32.0-36.0); MEAN CORPUSCULAR VOLUME 93 FL (80-99); MEAN PLATELET VOLUME 6.6 FL (6.5-10.1); MONOCYTES % (AUTO) 9.8 % (1.0-10.0); NEUTROPHILS % (AUTO) 62.7 % (45.0-75.0); PLATELET COUNT 233 K/UL (150-450); RED BLOOD COUNT 3.95 M/UL (4.20-5.40); RED CELL DISTRIBUTION WIDTH 11.1 % (11.6-14.8); WHITE BLOOD COUNT 6.8 K/UL (4.8-10.8)
[2016-10-18] MEDS ORDERED: PCA HYDROmorphone 1mg/ml 30 ML IV PRN (07:30)
[2016-10-18] MEDS ORDERED: Rate Change PCA 1 Each MISC PRN (07:30)
[2016-10-18] MEDS: Pantoprazole Inj IVP SCH (07:42)
[2016-10-18 08:00] VITALS: BP 165/93
--- NOTE | 2016-10-18 08:17 | Operative Note - Dictated ---
DATE OF OPERATION: 10/13/2016 SURGEON: Vishnu Cuevas M.D. REPORTING DEVELOPER SURGEON: Sandro Reyes M.D. ANESTHESIOLOGIST: Dr. Leiva. TYPE OF ANESTHESIA: General endotracheal. PREOPERATIVE DIAGNOSES: 1. Malfunctioning Kock pouch continent ileostomy. 2. History of ulcerative colitis. 3. Status post multiple abdominal operations. 3.1. Proctocolectomy and Kock pouch continent ileostomy in 1984. 3.2. Revision of Kock pouch nipple valve in 1985. 3.3. Revision of Kock pouch stoma stricture in 2007. 3.4. Revision of Kock pouch stoma and access segment in depth 09/25/2016 POSTOPERATIVE DIAGNOSES: 1. Malfunctioning Kock pouch continent ileostomy. 2. History of ulcerative colitis. 3. Status post multiple abdominal operations. 3.1. Proctocolectomy and Kock pouch continent ileostomy in 1984. 3.2. Revision of Kock pouch nipple valve in 1985. 3.3. Revision of Kock pouch stoma stricture in 2007. 3.4. Revision of Kock pouch stoma and access segment in depth 09/25/2016 OPERATION PERFORMED: Laparotomy with complex revision of Kock pouch with creation of new valve and stoma with relocation of the stoma to the left lower quadrant and catheter gastrostomy. DESCRIPTION OF PROCEDURE: The patient was taken to the operating room and under general endotracheal anesthesia with sequential compression device stockings in place and having received preoperative intravenous antibiotics and subcutaneous heparin, the patient was prepped and draped in the usual fashion. Initially the stoma in the right lower quadrant was sealed with a Tegaderm. Previous lower midline incision was reopened excising the skin scar and extending the incision just above the umbilicus. There were no adhesions to the anterior abdominal wall and only mild interloop adhesions. The Kock pouch was readily elevated out of the pelvis and appeared well formed. There was an internal hernia of the small bowel related to the pouch that was taken down once the bowel was mobilized. The stoma in the right lower quadrant was dismantled with a transversely oriented elliptical incision bringing the stoma into the abdominal cavity. The access segment at the level of the pouch was divided and then the opening of the pouch closed with continuous full-thickness locking 2-0 chromic followed by imbricating 3-0 silk. A 28-Malaysian Brock catheter had been placed into the pouch through the old stoma and the afferent bowel manually occluded and the pouch was distended with 500 mL of saline. It was then decompressed. Now, an appropriately located pouch enterotomy was created along the prior pouch suture line. The afferent bowel was traced retrograde. There was an abundance of small bowel which was inspected from ligament of Treitz to the pouch and it was all completely normal. Liver and gallbladder were normal to inspection and palpation. The uterus, tubes and ovaries were atrophic consistent with age. It was clear that a new stoma would need to be located in the left lower quadrant. At an appropriate point proximal to the pouch, the small bowel was divided proximally with the automatic pursestring device and distally with the linear stapler 30. Now, using a 25 CEEA, an end-to-side anastomosis near the apex of the pouch was created and the 2 doughnuts inspected and were intact. The staple line was inspected. Hemostasis was secure. A marking suture of 2-0 chromic was placed at the pouch. Then 12 cm proximal was marked for the new valve segment and a small mesenteric hiatus created. The abdominal wall was measured at approximately 3 cm thickness and the appropriate length access segment was measured and marked and then the mesentery was divided preserving 2 good vessels to the access segment. The bowel was then divided proximally with the linear stapler 30 and distally left open to become the new stoma. Now, the two stapled ends of small bowel were brought [id number] and using a ADEEL 55 a acet-rt-zafz functional end-to-end stapled anastomosis was created with good hemostasis along the staple line and the enterotomy closed with the linear stapler 60, green cartridge, and a small mesenteric defect closed with 3-0 silk. Having restored intestinal continuity, attention was now directed to creation of the valve. The peritoneum on each side of the valve segment mesentery was stripped and the serosa scarified with cautery. Then, with gradual intussusception, a 5.0 cm nipple valve was created. Alignment was maintained and confirmed with the Miller suction. Then 3-0 silk sutures were placed on each side of the mesentery of the access segment to the pouch. Using the PI 55 stapling device with 4.8 mm emil and avoiding the mesentery, 2 rows of emil were placed along the new nipple valve. Then, a third application of the stapler was fired to staple the valve to the anterior pouch wall. Then, the pouch enterotomy was closed with continuous full-thickness locking 2-0 chromic followed by imbricating 3-0 silk suture. Additional 3-0 silk sutures were placed between the access segment and the pouch. Now, the 28-Malaysian Brock catheter was placed into the stoma into the pouch and the afferent bowel manually occluded. The pouch was distended with 500 mL of saline and there was no evidence of extravasation. The catheter was removed and there was no evidence of any incontinence. The catheter was reintroduced and the pouch decompressed. There was not enough surface area for an intestinal collar, and accordingly through the mesenteric defect at the junction of the access segment and valve segment, a strip of Vicryl mesh was placed and sutured with a 270 degree wrap with interrupted 3-0 silk to the pouch. Now, at an appropriately located site low in the left lower quadrant, a 2.5 cm long narrow ellipse of skin was excised with transverse orientation and with a cruciate incision in the fascia, a two fingerbreadth abdominal wall hiatus was created. The posterior pouch was sutured to the musculo-peritoneum with interrupted 3-0 Vicryl. Then, the access segment and stoma was brought through the abdominal wall maintaining proper orientation. Additional 3-0 Vicryl were placed to the peritoneum to the anterior pouch. Then slight redundancy of the access segment was excised and the new stoma primarily matured with continuous 2-0 chromic locking sutures starting at the 3 and 9 o'clock positions. A very satisfactory stoma was achieved. The 28-Malaysian Brock was placed into the apex and the pouch lay down nicely into the pelvis with the bowel loops following layered back anatomically. The catheter was marked at the level of the stoma with a 3-0 silk and then it was sutured to the skin with two sutures of 2-0 silk. It was flushed and connected to a gravity drainage bag. In view of all the dissection, I felt decompression with a catheter gastrostomy was indicated. Through a stab incision in the left upper quadrant, an 18-Malaysian Brock catheter was brought through the abdominal wall and placed into the greater curve anterior wall body of the stomach between two concentric 2-0 chromic pursestring sutures with the balloon inflated and positioned in the fundus. The stomach was then sutured to the anterior peritoneum with multiple interrupted 3-0 silk sutures and the catheter sutured to the skin with a 2-0 silk suture. It was flushed and connected to a gravity drainage bag. The abdomen was inspected and irrigated and hemostasis was secure. The fascia in the right lower quadrant prior stoma site was closed with multiple interrupted inverted #0 Prolene sutures and a Betadine soaked Ray-Sumeet had been placed in this area throughout the procedure and antibiotic-soaked laps were used to protect the abdominal incision throughout the procedure. Now, the midline incision was closed in one layer with continuous #1 Prolene starting at both ends and inverting the knots, subcutaneous tissue was again irrigated with antibiotic solution and the midline incision closed with emil. The right lower quadrant prior stoma site was closed with interrupted 2-0 nylon vertical mattress sutures. Dry sterile dressings were applied. Final sponge and needle counts were correct. Estimated blood loss was approximately 100 mL. The patient tolerated the procedure well and left the operating room in good condition. Vishnu Cuevas M.D. DR: TAYLOR JOB#: [id number] MATT
--- NOTE | 2016-10-18 08:38 | General Progress Note ---
Progress Note Progress Note AVSS intermittent cramps and bloating. Ambulating in hallways 3x daily Abdomen mildly distended, healing nicely Urine 2650 Gastrostomy 390 Kock pouch ileo 50cc WBC 6800 Hgb 13.1 BMP - wnl Imp. Ileus Plan: Continue NPO D/C urinary LOC [place] Oct 18, 2016 08:38
[2016-10-18] MEDS ORDERED: Hydrocortisone 1% Cr 15gm TOPIC PRN (08:45)
[2016-10-18] MEDS: D5 1/4NS w/KCl 20mEq 1,000 ML IV SCH ×3 (10:21→21:00)
[2016-10-18 12:00] VITALS: BP 126/80
[2016-10-18] MEDS: PCA shift volume MISC SCH ×2 (15:31→23:22)
[2016-10-18 16:11] VITALS: BP 125/84
[2016-10-18] MEDS: Iron Sucrose 100 MG in NS 55 ML IVPB SCH (20:37)
[2016-10-19] MEDS: Ketorolac 30mg Inj IV PRN ×4 (00:41→20:59)
[2016-10-19 04:00] VITALS: BP 135/88
[2016-10-19] MEDS: D5 1/4NS w/KCl 20mEq 1,000 ML IV SCH ×2 (05:41→15:09)
[2016-10-19] MEDS: PCA shift volume MISC SCH (07:00)
[2016-10-19 08:00] VITALS: BP 147/94
[2016-10-19] MEDS: Pantoprazole Inj IVP SCH (08:18)
--- NOTE | 2016-10-19 09:22 | General Progress Note ---
Progress Note Progress Note AVSS c/o mid-abdominal incisional pain, no gas or cramping pains. Gets depressed with Dilaudid Abdomen soft, adrián-incisional tenderness only, healing nicely, stoma healing nicely Urine 2700 (voiding) Gastrostomy 290 Kock Pouch ileo 145 WBC 6800 Hgb 13.1 BMP - wnl Imp: Resolving ileus Plan: Clear liquid diet Gastrostomy 3:3 protocol D/C REGISTERED NURSE OBSTETRICS [place] 5/325 prn moderate pain; continue Toradol 15mg IV q6h prn severe pain Decrease IV fluids tonight if tolerating the above LOC [place] Oct 19, 2016 09:22
[2016-10-19] MEDS: Norco 5mg/325mg tab ORAL PRN ×2 (11:24→17:44)
[2016-10-19 12:00] VITALS: BP 135/81
[2016-10-19] MEDS: LORazepam 1mg tab SL PRN ×3 (12:21→20:59)
[2016-10-19 16:02] VITALS: BP 129/72
[2016-10-19 20:00] VITALS: BP 132/87
[2016-10-19] MEDS: Iron Sucrose 100 MG in NS 55 ML IVPB SCH (20:59)
[2016-10-20] MEDS: Norco 5mg/325mg tab ORAL PRN ×3 (00:32→18:25)
[2016-10-20 04:00] VITALS: BP 136/79
[2016-10-20 08:00] VITALS: BP 120/84
--- NOTE | 2016-10-20 08:16 | General Progress Note ---
Progress Note Progress Note AVSS Tolerated clear liquids and gastrostomy 3:3 with some cramping and intermittent incisional pain Abdomen soft, flat, non-tender, healing well Urine 2250 Gastrostomy 295 Kock pouch ileo 790 Imp. Improving Plan; Full liquid diet Gastrostomy 5:1 protocol continue IV fluids today 50cc/hr labs in LOC [place] Oct 20, 2016 08:16
[2016-10-20] MEDS ORDERED: Vitamin B12 1000mcg/ml Inj IM ONE (10:00)
[2016-10-20] MEDS: Ketorolac 30mg Inj IV PRN ×2 (10:37→16:41)
[2016-10-20 12:00] VITALS: BP 137/87
[2016-10-20 16:00] VITALS: BP 131/78
[2016-10-20] MEDS: Simethicone 80mg tab ORAL PRN (17:44)
[2016-10-20] MEDS: LORazepam 1mg tab SL PRN ×2 (18:40→22:34)
[2016-10-20] MEDS: D5 1/4NS w/KCl 20mEq 1,000 ML IV SCH (19:00)
[2016-10-20 20:00] VITALS: BP 135/86
[2016-10-20] MEDS ORDERED: Iron Sucrose 100 MG in NS 55 ML IVPB SCH (21:00)
[2016-10-20] MEDS ORDERED: NS 550ML IV ONE (21:08)
[2016-10-20] MEDS ORDERED: NS Irrig 1000ml ONE (21:08)
[2016-10-20] MEDS ORDERED: Tubing IV Secondary IV ONE (21:08)
[2016-10-20] MEDS: Iron Sucrose 100 MG in NS 110 ML IVPB SCH (21:29)
[2016-10-21] VITALS: BP 141/89
[2016-10-21] MEDS: Norco 5mg/325mg tab ORAL PRN ×2 (01:18→09:36)
[2016-10-21 04:00] VITALS: BP 140/88
[2016-10-21] MEDS: LORazepam 1mg tab SL PRN ×4 (05:44→21:14)
[2016-10-21 08:00] VITALS: BP 132/90
[2016-10-21 08:04] LABS: BASOPHILS % (AUTO) 1.4 % (0.0-2.0); EOSINOPHILS % (AUTO) 2.5 % (0.0-3.0); LYMPHOCYTES % (AUTO) 15.7 % (20.0-45.0); MEAN CORPUSCULAR HEMOGLOBIN 31.3 PG (27.0-31.0); MEAN CORPUSCULAR HGB CONC 34.1 G/DL (32.0-36.0); MEAN CORPUSCULAR VOLUME 92 FL (80-99); MEAN PLATELET VOLUME 6.6 FL (6.5-10.1); MONOCYTES % (AUTO) 9.4 % (1.0-10.0); PLATELET COUNT 350 K/UL (150-450); RED CELL DISTRIBUTION WIDTH 11.3 % (11.6-14.8); WHITE BLOOD COUNT 8.6 K/UL (4.8-10.8)
[2016-10-21] MEDS: Ketorolac 30mg Inj IV PRN ×2 (08:15→14:11)
[2016-10-21 08:17] LABS: ANION GAP 19 (5-15); CALCIUM 9.9 mg/dL (8.6-10.2); CARBON DIOXIDE 20 mEQ/L (20-30); CHLORIDE 99 mEQ/L (98-107); CREATININE 0.8 mg/dL (0.5-0.9); GLOMERULAR FILTRATION RATE > 60 mL/min (>60); HEMOLYSIS 9; SODIUM 138 mEQ/L (135-145)
[2016-10-21 12:00] VITALS: BP 130/85
[2016-10-21] MEDS: D5 1/4NS w/KCl 20mEq 1,000 ML IV SCH ×2 (15:01→21:15)
[2016-10-21 16:32] VITALS: BP 135/91
[2016-10-21] MEDS ORDERED: Acetaminophen 650mg/20.3ml GT PRN (16:41)
[2016-10-21 20:25] VITALS: BP 137/81
[2016-10-21] MEDS: Iron Sucrose 100 MG in NS 110 ML IVPB SCH (21:00)
[2016-10-21] MEDS: HYDROmorphone 1mg/ml Carpuject SUBQ PRN (22:53)
--- NOTE | 2016-10-21 23:29 | Progress Note ---
DATE: 10/21/2016 The patient is now approximately a week after her pouch revision. The surgical areas look healthy. There is mild erythema at the left lower quadrant stomal site. She continues to have cramping abdominal pain related to incomplete return of bowel function. She does have adequate volumes coming from the pouch and a relatively normal bowel sounds. I have ordered that she remain on a full liquid diet, but that the G-tube be open on a 3-hour schedule 3 hours on and 3 hours off. She is having epigastric discomfort, especially after [place]. I discontinued the Toradol, put her on an oral antacid and started her on oral ibuprofen, which she takes at home for chronic back pain. Hopefully, this will allow her to have better pain control with less narcotics and speedy recovery of her gut function. I will re-evaluate her tomorrow and consider advancing her diet if she is improving. Yakov Adams M.D. DR: JIM JOB#: [id number] CC:
[2016-10-22 00:57] VITALS: BP 122/78
[2016-10-22 04:00] VITALS: BP 130/77
[2016-10-22] MEDS: HYDROmorphone 1mg/ml Carpuject SUBQ PRN ×3 (05:26→23:11)
[2016-10-22] MEDS: D5 1/4NS w/KCl 20mEq 1,000 ML IV SCH ×2 (05:27→16:07)
[2016-10-22] MEDS: LORazepam 1mg tab SL PRN ×2 (05:42→16:47)
--- NOTE | 2016-10-22 09:11 | Diagnostic Imaging Report ---
Clinical history: Abdominal pain. Recent surgery. Technique: Single frontal abdominal radiograph was obtained. Comparisons: None Findings: Cutaneous emil are noted in the mid abdomen. Postsurgical sutures are noted in the pelvis. Mild air distention of several small and large bowel loops is noted throughout the abdomen and pelvis. This examination does not exclude the presence of free intraperitoneal air. Impression: Mild air distention of several small amount bowel loops throughout the abdomen and pelvis may represent postoperative ileus or partial small bowel obstruction. Postoperative changes noted.
--- NOTE | 2016-10-22 09:13 | Diagnostic Imaging Report ---
Clinical history: Acute chest pain. Technique: Portable AP chest radiograph was obtained. Comparison: 09/24/16. Findings: Left upper extremity PICC has been placed in the interval with the tip in the mid SVC. There is no overt vascular congestion or focal consolidation from pneumonia. There is otherwise no significant interval change in the interval, allowing for differences in technique and positioning. Impression: Left upper extremity PICC is in appropriate position. No evidence of pneumonia or significant pulmonary edema.
[2016-10-22 12:00] VITALS: BP 122/78
[2016-10-22 15:54] VITALS: BP 103/78
[2016-10-22 20:00] VITALS: BP 133/81
[2016-10-22] MEDS: Iron Sucrose 100 MG in NS 110 ML IVPB SCH (20:22)
--- NOTE | 2016-10-22 21:11 | Cardiology Report ---
APPROVED REPORT EKG Measurement Heart [id number] Normal sinus rhythm Abnormal ECG
--- NOTE | 2016-10-22 21:49 | Progress Note ---
DATE: 10/22/2016 SUBJECTIVE: I am seeing this patient for Dr. Vishnu Cuevas. The patient had a difficult night last night with vomiting and the emesis looked similar to her ostomy output. A KUB showed dilated bowel, no clear transition point, and the patient is still having ostomy output. In addition, she is doing much better today after opening up her G-tube to low intermittent suction, and she is continuing to have reasonable quantity of ostomy output. The plan will be to clamp the tube every three hours for three-hour intervals, in other words, three hours on low intermittent suction and three hours clamped. If she continues to do well, a trial of liquids can be considered tomorrow. IMPRESSION: Ileus with partial small bowel obstruction with intolerance of full liquids, and therefore, she was made NPO last night and placed on gastrostomy tube intermittent suction, which resolved her symptoms completely. PLAN: Cautious trial of clamping of the G-tube at intervals with progression to liquid diet as tolerated. Yakov Adams M.D. DR: KENNA JOB#: [id number] CC:
[2016-10-23] VITALS: BP 139/80
[2016-10-23] MEDS: D5 1/4NS w/KCl 20mEq 1,000 ML IV SCH ×3 (02:50→21:33)
[2016-10-23] MEDS: LORazepam 1mg tab SL PRN ×3 (02:50→21:31)
[2016-10-23 04:00] VITALS: BP 120/76
[2016-10-23 08:00] VITALS: BP 138/73
[2016-10-23] MEDS: Simethicone 80mg tab ORAL PRN ×2 (11:13→20:35)
[2016-10-23 11:57] VITALS: BP 112/79
[2016-10-23] MEDS: HYDROmorphone 1mg/ml Carpuject SUBQ PRN ×3 (12:23→20:27)
[2016-10-23] MEDS ORDERED: NS Irrig 1000ml ONE (14:17)
[2016-10-23 16:06] VITALS: BP 108/71
[2016-10-23 20:23] VITALS: BP 124/77
[2016-10-23] MEDS: Iron Sucrose 100 MG in NS 110 ML IVPB SCH (20:27)
--- NOTE | 2016-10-23 22:59 | Progress Note ---
DATE: 10/23/2016 SURGICAL PROGRESS NOTE SUBJECTIVE: The patient is being seen for Dr. Poncho Cuevas. She is now a week and a half after surgery for revision of occult pouch and relocation of her stoma. She continues to have cramping pain every few hours with a regimen of 3 hours on and 3 hours off clamping of her G-tube. She has been NPO except for ice chips. Bowel sounds are normoactive, and she still has a reasonably large output of ostomy fluid approximately 250 mL per shift as opposed to 140 mL from the G-tube. The continued cramping abdominal pain is of concern. Her abdominal exam is unremarkable in that she is nondistended and only minimally tender, but she undoubtedly has a partial obstruction with clinical evidence of it persisting given the cramping even when she is NPO. Dr. Cuevas is returning tomorrow and he will determine whether a CT scan with contrast would be appropriate at this point. At the present time, she will continue to be NPO except for limited amount of ice chips with clamping of the G-tube for 3 hours and unclamping it for 3 hour intervals in an alternating fashion. Yakov Adams M.D. DR: KIANA JOB#: [id number] CC:
[2016-10-24] VITALS: BP 112/69
[2016-10-24 04:00] VITALS: BP 128/84
[2016-10-24 06:57] LABS: BASOPHILS % (AUTO) 1.5 % (0.0-2.0); EOSINOPHILS % (AUTO) 2.9 % (0.0-3.0); LYMPHOCYTES % (AUTO) 14.2 % (20.0-45.0); MEAN CORPUSCULAR VOLUME 94 FL (80-99); MEAN PLATELET VOLUME 6.4 FL (6.5-10.1); MONOCYTES % (AUTO) 7.8 % (1.0-10.0); NEUTROPHILS % (AUTO) 73.6 % (45.0-75.0); PLATELET COUNT 334 K/UL (150-450); RED CELL DISTRIBUTION WIDTH 11.2 % (11.6-14.8); WHITE BLOOD COUNT 8.9 K/UL (4.8-10.8)
[2016-10-24 07:05] LABS: ALANINE AMINOTRANSFERASE 33 U/L (3-33); ALBUMIN/GLOBULIN RATIO 1.1 (1.0-2.7); AMYLASE 55 U/L (10-110); ANION GAP 14 (5-15); ASPARTATE AMINO TRANSFERASE 20 U/L (5-40); CALCIUM 9.2 mg/dL (8.6-10.2); CARBON DIOXIDE 21 mEQ/L (20-30); CHLORIDE 102 mEQ/L (98-107); CREATININE 0.7 mg/dL (0.5-0.9); GLOMERULAR FILTRATION RATE > 60 mL/min (>60); HEMOLYSIS 2; LIPASE 33 U/L (< 60); POTASSIUM 4.1 mEQ/L (3.4-4.9); SODIUM 137 mEQ/L (135-145); TOTAL PROTEIN 6.2 g/dL (6.6-8.7)
[2016-10-24 08:38] VITALS: BP 124/76
--- NOTE | 2016-10-24 08:53 | General Progress Note ---
Progress Note Progress Note AVSS Persistent cramping and burping despite low gastrostomy output and good Kock pouch ileo output Abdomen soft, non-distended, healing well Urine 1950 Gastrostomy (3:3 protocol) 240 Kock pouch ileo 520 WBC 8900 Hgb 12.5 BMP - wnl, amylase and lipase normal, albumin low 3.3 Imp: R/O partial SBO Plan: STAT CT scan abd+pelvis with oral and IV contrast Start TPN Add Reglan 10mg IV q6h LOC [place] Oct 24, 2016 08:53
[2016-10-24] MEDS ORDERED: Metoclopramide 10mg/2ml Inj IVP PRN (09:00)
[2016-10-24] MEDS: HYDROmorphone 1mg/ml Carpuject SUBQ PRN ×2 (09:04→15:55)
[2016-10-24] MEDS: Simethicone 80mg tab ORAL PRN ×3 (09:04→21:53)
[2016-10-24 11:52] VITALS: BP 133/82
--- NOTE | 2016-10-24 12:09 | Diagnostic Imaging Report ---
Indications: Abdominal pain, nausea and vomiting; status post Zamorano pouch revision 10 days ago Technique: Continuous helical CT imaging of the abdomen and pelvis was performed with automatic exposure control following administration of oral and intravenous nonionic iodine contrast, on a Siemens sensation [address] scanner. Axial, coronal, and sagittal images were reconstructed at 5 mm slice thickness. CTDI volume(s): 15 mGy Total DLP: 705 mGy-cm Findings: Comparison: 09/11/2016 Right lower quadrant ileostomy has been removed. Mild subcutaneous stranding and a single small intraperitoneal gas bubble reside in its former location. New left lower quadrant ileostomy has been created, communicating with ileal pouch in the pelvis. New midline lower anterior abdominal surgical incision is noted with overlying skin emil. Catheter traverses the new ileostomy, tip deep within the pouch. Mild adjacent stranding, minimal pelvic free fluid. Small intraperitoneal gas bubble adjacent to urinary bladder dome. No extraluminal loculated fluid collections are demonstrated. Percutaneous gastrostomy tube has been placed, tip within the gastric lumen. Oral contrast administered via this tube has passed throughout the gastrointestinal tract and not quite to the level of the ileal pouch. High attenuation material within the ileal pouch lumen appears somewhat older. Small bowel in the region of the pouch is only mildly distended. Air-fluid levels are present throughout the small bowel. Absence of the colon and rectum again noted. Small bilateral renal cortical cysts, scattered arterial mural calcifications of arterial tortuosity, absence of the uterus and nonvisualization of the ovaries again noted. Remainder visualized abdominopelvic anatomy demonstrates no other obvious acute abnormality. Small pleural-based linear densities in both lung bases. Disc space narrowing with marginal osteophyte formation, vacuum phenomenon again noted in lumbar spine. IMPRESSION: Evidence of recent surgical revision of ileal pouch with resection of right lower quadrant ileostomy, creation of left lower quadrant ileostomy area of no evidence of associated significant complication. Interval placement of percutaneous gastrostomy tube, well-positioned Small bowel findings suggest mild ileus. No evidence of obstruction. Other stable chronic changes as described
[2016-10-24] MEDS ORDERED: D5 1/4NS w/KCl 20mEq 1,000 ML IV SCH ×2 (13:00→21:00)
[2016-10-24 15:58] VITALS: BP 116/76
[2016-10-24] MEDS: LORazepam 1mg tab SL PRN ×2 (17:48→21:27)
[2016-10-24] MEDS: NovoLOG Insulin Flexpen SUBQ SCH (17:54)
[2016-10-24 20:18] VITALS: BP 117/75
[2016-10-24] MEDS ORDERED: Dextrose 10% 1,000 ML IV PRN (21:00)
[2016-10-24] MEDS ORDERED: Fat Emulsion Iv 20% 250 ML IV SCH (21:00)
[2016-10-24] MEDS: D5 1/4NS w/KCl 20mEq 1,000 ML IV SCH (21:03)
[2016-10-24] MEDS: Iron Sucrose 100 MG in NS 110 ML IVPB SCH (21:06)
[2016-10-24] MEDS: TPN IV SCH (21:09)
[2016-10-24] MEDS: FAT EMULSION 20% IV SCH (21:09)
[2016-10-25 04:00] VITALS: BP 120/72
[2016-10-25] MEDS: Simethicone 80mg tab ORAL PRN ×2 (04:42→15:21)
[2016-10-25] MEDS: NovoLOG Insulin Flexpen SUBQ SCH ×4 (06:00→17:27)
[2016-10-25] MEDS: LORazepam 1mg tab SL PRN ×2 (06:00→15:28)
[2016-10-25] MEDS: D5 1/4NS w/KCl 20mEq 1,000 ML IV SCH (06:00)
[2016-10-25 07:07] LABS: BASOPHILS % (AUTO) 1.6 % (0.0-2.0); EOSINOPHILS % (AUTO) 2.8 % (0.0-3.0); LYMPHOCYTES % (AUTO) 15.6 % (20.0-45.0); MEAN CORPUSCULAR HEMOGLOBIN 32.4 PG (27.0-31.0); MEAN CORPUSCULAR VOLUME 95 FL (80-99); MEAN PLATELET VOLUME 6.5 FL (6.5-10.1); MONOCYTES % (AUTO) 7.2 % (1.0-10.0); NEUTROPHILS % (AUTO) 72.9 % (45.0-75.0); PLATELET COUNT 362 K/UL (150-450); RED BLOOD COUNT 4.11 M/UL (4.20-5.40); WHITE BLOOD COUNT 8.3 K/UL (4.8-10.8)
[2016-10-25 07:13] LABS: ANION GAP 14 (5-15); CALCIUM 9.6 mg/dL (8.6-10.2); CARBON DIOXIDE 25 mEQ/L (20-30); CHLORIDE 101 mEQ/L (98-107); CREATININE 0.8 mg/dL (0.5-0.9); GLOMERULAR FILTRATION RATE > 60 mL/min (>60); HEMOLYSIS 4; PHOSPHORUS 4.1 mg/dL (2.5-4.8); POTASSIUM 4.4 mEQ/L (3.4-4.9); SODIUM 140 mEQ/L (135-145)
[2016-10-25 08:00] VITALS: BP 110/67
--- NOTE | 2016-10-25 10:11 | General Progress Note ---
Progress Note Progress Note AVSS Feeling much better. CT scan revealed only mild bowel wall thickening, no obstructions or fluid collections Abdomen slightly distended, soft, non-tender, healing well Urine 1950 Gastrostomy 5:1 only 180cc Kock pouch ileo 1715 WBC 8300 Hgb 13.3 Mg/P and BMP - all wnl glucose 124 Imp. Slowly resolving ileus, improved Plan: Clear liquid diet and plug gastrostomy continuously Continue TPN and continuous drainage of Kock Pouch continent ileostomy D/C IV fluids other than TPN LOC HUMPHRIES Oct 25, 2016 10:10
[2016-10-25 11:51] VITALS: BP 115/77
[2016-10-25] MEDS: HYDROmorphone 1mg/ml Carpuject SUBQ PRN (15:22)
[2016-10-25 16:00] VITALS: BP 135/91
[2016-10-25] MEDS ORDERED: Ketorolac 30mg Inj IV PRN (17:45)
[2016-10-25 20:00] VITALS: BP 120/80
[2016-10-25] MEDS: FAT EMULSION 20% IV SCH (20:37)
[2016-10-25] MEDS: TPN IV SCH (20:37)
[2016-10-25] MEDS: Zolpidem 5mg tab ORAL PRN (20:39)
[2016-10-26] VITALS: BP 114/74
[2016-10-26] MEDS: LORazepam 1mg tab SL PRN ×4 (00:15→17:18)
[2016-10-26] MEDS: HYDROmorphone 1mg/ml Carpuject SUBQ PRN ×3 (00:16→12:03)
[2016-10-26 04:00] VITALS: BP 108/74
[2016-10-26] MEDS: NovoLOG Insulin Flexpen SUBQ SCH ×4 (06:00→18:36)
[2016-10-26 08:00] VITALS: BP 104/68
--- NOTE | 2016-10-26 08:22 | General Progress Note ---
Progress Note Progress Note AVSS Recurrent severe cramping with oral intake. No nausea or emesis. [place] better with gastrostomy unplugged x 1 hour but only 50cc output Abdomen soft, non-distended, non- tender, healing well Urine 2100 Gastrostomy - plugged Kock pouch ileo 1370 watery Imp. Bacterial overgrowth enteritis/pouchitis Plan: Cipro 500mg po STAT and q12h Flagyl 250mg po STAT and TID Stool for C. diff toxin continue TPN f/u labs in LOC ROGERS Oct 26, 2016 08:22
[2016-10-26] MEDS ORDERED: Lidocaine HCl 2% Jelly 5ml Tube TOPIC PRN (08:30)
[2016-10-26] MEDS ORDERED: Ciprofloxacin 500mg tab ORAL SCH (08:30)
[2016-10-26] MEDS: Ciprofloxacin 500mg tab ORAL SCH ×2 (08:31→21:58)
[2016-10-26] MEDS: metroNIDAZOLE 250mg tab ORAL SCH ×3 (08:31→18:38)
[2016-10-26] MEDS: Simethicone 80mg tab ORAL PRN ×3 (08:31→18:37)
[2016-10-26] MEDS ORDERED: Clindamycin 150mg cap ORAL SCH (09:00)
[2016-10-26 12:00] VITALS: BP 118/70
[2016-10-26 16:00] VITALS: BP 105/68
[2016-10-26] MEDS: Norco 5mg/325mg tab ORAL PRN (17:20)
[2016-10-26 20:00] VITALS: BP 115/65
[2016-10-26] MEDS: Zolpidem 5mg tab ORAL PRN (21:58)
[2016-10-26] MEDS: FAT EMULSION 20% IV SCH (21:59)
[2016-10-26] MEDS: TPN IV SCH (21:59)
[2016-10-27] VITALS: BP 100/65
[2016-10-27] MEDS ORDERED: Cathflo Alteplase 2mg Inj INJ ONE
[2016-10-27] MEDS: LORazepam 1mg tab SL PRN ×3 (00:36→17:15)
[2016-10-27 04:00] VITALS: BP 111/72
[2016-10-27] MEDS: NovoLOG Insulin Flexpen SUBQ SCH ×4 (06:00→18:00)
[2016-10-27 07:12] LABS: BASOPHILS % (AUTO) 1.5 % (0.0-2.0); EOSINOPHILS % (AUTO) 3.9 % (0.0-3.0); LYMPHOCYTES % (AUTO) 17.2 % (20.0-45.0); MEAN CORPUSCULAR HGB CONC 32.8 G/DL (32.0-36.0); MEAN CORPUSCULAR VOLUME 95 FL (80-99); MONOCYTES % (AUTO) 7.1 % (1.0-10.0); NEUTROPHILS % (AUTO) 70.2 % (45.0-75.0); PLATELET COUNT 421 K/UL (150-450); RED BLOOD COUNT 4.44 M/UL (4.20-5.40); RED CELL DISTRIBUTION WIDTH 11.7 % (11.6-14.8)
[2016-10-27 07:35] LABS: ANION GAP 14 (5-15); CALCIUM 9.1 mg/dL (8.6-10.2); CARBON DIOXIDE 28 mEQ/L (20-30); CHLORIDE 100 mEQ/L (98-107); CREATININE 0.8 mg/dL (0.5-0.9); GLOMERULAR FILTRATION RATE > 60 mL/min (>60); HEMOLYSIS 8; POTASSIUM 4.1 mEQ/L (3.4-4.9); SODIUM 142 mEQ/L (135-145)
[2016-10-27 08:00] VITALS: BP 98/65
[2016-10-27] MEDS: Ascorbic Acid 500mg tab ORAL PRN ×2 (09:08→21:36)
[2016-10-27] MEDS: Ciprofloxacin 500mg tab ORAL SCH ×2 (09:08→21:20)
[2016-10-27] MEDS: metroNIDAZOLE 250mg tab ORAL SCH ×3 (09:08→18:01)
[2016-10-27] MEDS ORDERED: HYDROmorphone 1mg/ml Carpuject SUBQ PRN (10:45)
--- NOTE | 2016-10-27 10:47 | General Progress Note ---
Progress Note Progress Note AVSS Did well past 24 hours taking small amount clear liquids with gastrostomy plugged. This AM transient severe belching and "gas" after jello - no gastric residual and ileo catheter flowing well. Abdomen soft, flat, non-tender. 1/3 emil removed Urine 2700 Gastrostomy - plugged Kock pouch ileo 350 (on cipro and Flagyl) C. diff negative WBC 9000 Hgb 13.7 Platelets up 421,000 BMP - wnl glucose 102 Imp. Slowly improving bacterial overgrowth enteritis/pouchitis Plan: BCIR low residue diet - will eat as tolerated Continue TPN, Cipro and Flagyl po Maintain continuous drainage of Kock Pouch LOC HUMPHRIES Oct 27, 2016 10:47
[2016-10-27] MEDS: Simethicone 80mg tab ORAL PRN (11:01)
[2016-10-27 11:57] VITALS: BP 148/82
[2016-10-27 16:00] VITALS: BP 126/82
[2016-10-27 20:00] VITALS: BP 127/67
[2016-10-27] MEDS: Zolpidem 5mg tab ORAL PRN (21:20)
[2016-10-27] MEDS: TPN IV SCH (21:21)
[2016-10-27] MEDS: FAT EMULSION 20% IV SCH (21:21)
[2016-10-27] MEDS: Norco 5mg/325mg tab ORAL PRN (21:37)
[2016-10-28] VITALS: BP 107/72
[2016-10-28] MEDS: NovoLOG Insulin Flexpen SUBQ SCH ×4 (00:45→18:00)
[2016-10-28 04:00] VITALS: BP 114/79
[2016-10-28 08:00] VITALS: BP 117/77
[2016-10-28] MEDS: Ciprofloxacin 500mg tab ORAL SCH ×2 (08:51→20:45)
[2016-10-28] MEDS: metroNIDAZOLE 250mg tab ORAL SCH ×3 (08:51→18:25)
[2016-10-28] MEDS: Norco 5mg/325mg tab ORAL PRN ×3 (10:04→19:23)
--- NOTE | 2016-10-28 10:27 | General Progress Note ---
Progress Note Progress Note AVSS Doing much better, eating 50% BCIR diet, no cramping or UGI symptoms Abdomen soft. Cipriano/sutures d/c'd and steristrips applied - well healed incisions x 2 Gastrostomy removed Urine 2900 Kock pouch ileo 1045 (on Cipro + Flagyl) Imp. Improved Plan: Decrease TPN and d/c after current supply is done Start Kock Pouch self-intubations in AM with RN education/supervision LOC [place]MPH[place]ES Oct 28, 2016 10:27
[2016-10-28] MEDS ORDERED: TPN IV SCH (10:30)
[2016-10-28] MEDS ORDERED: FAT EMULSION 20% IV SCH (10:30)
[2016-10-28 12:00] VITALS: BP 107/69
[2016-10-28 16:00] VITALS: BP 116/78
[2016-10-28] MEDS: LORazepam 1mg tab SL PRN (18:25)
[2016-10-28] MEDS: Ascorbic Acid 500mg tab ORAL PRN (18:25)
[2016-10-28 20:00] VITALS: BP 130/75
[2016-10-28] MEDS: Zolpidem 5mg tab ORAL PRN (20:46)
[2016-10-29 00:23] VITALS: BP 105/67
[2016-10-29 04:00] VITALS: BP 121/60
[2016-10-29 08:00] VITALS: BP 108/70
[2016-10-29] MEDS: metroNIDAZOLE 250mg tab ORAL SCH ×3 (08:40→16:51)
[2016-10-29] MEDS: Ciprofloxacin 500mg tab ORAL SCH ×2 (08:40→20:39)
--- NOTE | 2016-10-29 10:17 | General Progress Note ---
Progress Note Progress Note AVSS Doing well eating 70% low residue diet. Abdomen soft, well healed Kock pouch ileo catheter removed - reinserts readily Urine 2350 Ileo 520 Imp. Doing well Plan: Begin RN supervised Kock Pouch self-intubations q3h from awakening to hs and prn D/C PIC -TPN done Rx: [place] 5/325 # 30; Ambien 45mg #30; Ativan 1mg #40 prn cramping If does well with intubations will discharge in AM LOC [place]ES Oct 29, 2016 10:17
[2016-10-29] MEDS: Norco 5mg/325mg tab ORAL PRN ×2 (12:35→20:40)
[2016-10-29 12:52] VITALS: BP 109/74
[2016-10-29] MEDS: LORazepam 1mg tab SL PRN ×2 (14:36→21:33)
[2016-10-29 16:11] VITALS: BP 125/79
[2016-10-29] MEDS: Ascorbic Acid 500mg tab ORAL PRN ×2 (16:50→22:57)
[2016-10-29 20:32] VITALS: BP 119/87
[2016-10-29] MEDS: Zolpidem 5mg tab ORAL PRN (23:52)
[2016-10-30] VITALS: BP 121/79
[2016-10-30 08:00] VITALS: BP 112/77
[2016-10-30] MEDS: Simethicone 80mg tab ORAL PRN (08:42)
[2016-10-30] MEDS: metroNIDAZOLE 250mg tab ORAL SCH (08:42)
[2016-10-30] MEDS: Ascorbic Acid 500mg tab ORAL PRN (08:42)
[2016-10-30] MEDS: Ciprofloxacin 500mg tab ORAL SCH (08:42)
--- NOTE | 2016-10-30 08:44 | General Progress Note ---
Progress Note Progress Note Doing well with Kock pouch self-intubations. Abdomen soft, well healed Urine 2400 Kock pouch ile9o 1090 Imp. doing well Plan: discharge with full supplies/limitations/instructions discussed/provided f/u 1 week and prn intubate q3h and prn except at night while sleeping LOC [place] Oct 30, 2016 08:44
[2016-10-30] MEDS ORDERED: NORCO 5-325 TA1 EACH ORAL (09:42)
[2016-10-30] MEDS ORDERED: AMBIEN5 MG ORAL (09:44)
[2016-10-30] MEDS ORDERED: ATIVAN1 MG ORAL ×2 (09:45→09:46)
[2016-10-31] MEDS ORDERED: Phytonadione 10 mg/mL 1ml amp SUBQ SCH (09:00)
--- NOTE | 2016-11-10 16:09 | Discharge Summary ---
Discharge Summary Hospital Course Date of Admission Oct 12, 2016 at 09:56 Date of Discharge Oct 30, 2016 at 10:21 Admitting Diagnosis HPI Mily Chowdhury is a 66 year old female who was admitted on Oct 12, 2016 at 09: 56 for Malfuntioning Kock Pouch Procedures OPERATION PERFORMED: Laparotomy with complex revision of Kock pouch with creation of new valve and stoma with relocation of the stoma to the left lower quadrant and catheter gastrostomy. Hospital Course The patient is a 66-year-old female in overall good health, who has a malfunctioning Kock pouch continent ileostomy with pain and difficulty with intubation but no incontinence. The patient has a past history of ulcerative colitis and underwent proctocolectomy with Kock pouch in 1984 followed by revision of the Kock pouch valve in 1985 and revision of the stoma for stricture in 2007. The patient has usually used a 34-Kosovan nasopharyngeal catheter to intubate but in recent months has had increasing difficulty. She required admission from 09/10/2016 through 09/13/2016 and then on 09/25/2016 underwent revision of the stoma in depth. An indwelling 30-Kosovan Brock catheter was kept in place for a week and when the patient returned to the office it was removed and the 30-Kosovan Stephanie catheter entered readily. However, at home that same evening and afternoon on 10/03/2016 and 10/04/2016 she had marked inability inserting any catheter. Accordingly, she underwent pouch endoscopy on 10/05/2016, which did not require any sedation and the small endoscope entered readily. She was advised to intubate with a 26-Kosovan Brock catheter on a regular basis and then graduate to 28-Kosovan and ultimately 30-Kosovan. When the patient was seen in the office on 10/09/2016, however, her stoma had retracted from the junction of the skin and was retracted into the subcutaneous tissues and it was clear that this would not be adequate and she would continue to have pain and difficulty with intubation and would now require a laparotomy with a major revision of her pouch. On 10/13/16 she underwent Laparotomy with complex revision of Kock pouch with creation of new valve and stoma with relocation of the stoma to the left lower quadrant and catheter gastrostomy. She tolerated the procedure and post-operatively was given pain management and was placed on NPO. Diet was slowly advanced however, she had persistent abdominal cramping. She was placed back on NPO, TPN, Cipro and Flagyl was started. A stat CTof the abdomen revealed only mild bowel wall thickening, no obstructions or fluid collections Abdomen slightly distended, soft, non-tender,and healing well. Stool C. diff was negative. She was started on BCIR low residue diet, neetu CAREY supervised Kock Pouch self-intubations q3h. On the day of discharge: Doing well with Kock pouch self-intubations. Abdomen soft, well healed Urine 2400 Kock pouch ile9o 1090 Imp. doing well Plan: discharge with full supplies/limitations/instructions discussed/provided f/u 1 week and prn intubate q3h and prn except at night while sleeping PREOPERATIVE DIAGNOSES: 1. Malfunctioning Kock pouch continent ileostomy. 2. History of ulcerative colitis. 3. Status post multiple abdominal operations. 3.1. Proctocolectomy and Kock pouch continent ileostomy in 1984. 3.2. Revision of Kock pouch nipple valve in 1985. 3.3. Revision of Kock pouch stoma stricture in 2007. 3.4. Revision of Kock pouch stoma and access segment in depth 09/25/2016 POSTOPERATIVE DIAGNOSES: 1. Malfunctioning Kock pouch continent ileostomy. 2. History of ulcerative colitis. 3. Status post multiple abdominal operations. 3.1. Proctocolectomy and Kock pouch continent ileostomy in 1984. 3.2. Revision of Kock pouch nipple valve in 1985. 3.3. Revision of Kock pouch stoma stricture in 2007. 3.4. Revision of Kock pouch stoma and access segment in depth 09/25/2016 I have been assigned to complete a discharge summary on this account. I was not involved in the patient's management. -- Shay Bernard NP. Discharge Discharge Disposition Patient was discharged to Home () Discharge Diagnoses: Bettina Bernard NP Nov 10, 2016 16:09
--- NOTE | 2016-11-18 02:09 | Discharge Summary ---
DATE OF ADMISSION: 10/12/2016 DATE OF DISCHARGE: 10/30/2016 HISTORY OF PRESENT ILLNESS: The patient is a 66-year-old female in overall good health admitted to undergo complex revision of her malfunctioning Kock pouch continent ileostomy. The patient has a past history of ulcerative colitis and underwent proctocolectomy with Kock pouch in 1984 followed by revision of the Kock pouch valve in 1985 and revision of a stoma stricture in 2007. On 09/25/2016, she underwent revision of the stoma in depth because of increasing difficulty with intubation. However, the difficulty with intubation persisted at a deeper level than could be reached with the stoma revision. She has pain and difficulty with intubation, but no incontinence, and developed retraction of the stoma from the skin. She was admitted to go to undergo preparation for surgery to include laparotomy with creation of a new valve and stoma with preservation of the existing Kock pouch. MEDICATIONS: Aspirin 81 mg daily, and Celebrex and ibuprofen for low back pain (chronic). ALLERGIES: None. OPERATIONS: In addition to the above, she has undergone knee and elbow surgery. REVIEW OF SYSTEMS: 1) The patient has a history of atrial fibrillation and underwent ablation 2013 2) The patient had a recent borderline or equivocal stress test and underwent CT scan of the chest in August 2016, which was unremarkable. PHYSICAL EXAMINATION: The patient was 5 foot 8 inches and 140 pounds. The abdomen was soft and flat with a long midline scar, and the stoma of the Kock pouch low in the right lower quadrant with retraction of the mucocutaneous junction down into the abdominal wall. HOSPITAL COURSE: The patient was admitted and underwent insertion of a dual lumen PICC line and insertion of a catheter into her Kock pouch connected to continuous gravity drainage. She underwent a bowel prep, intravenous hydration, and preoperative intravenous antibiotics and subcutaneous heparin. On 10/13/2016 she underwent laparotomy with creation of a new valve and stoma with relocation of the stoma to the left lower quadrant and catheter gastrostomy. Postoperatively she was kept comfortable with Dilaudid AUTOCAD OPERATOR with the basal infusion discontinued overnight due to confusion. She had ileus and atelectasis as anticipated. Gastrostomy and Kock pouch catheters were kept to continuous gravity drainage and she had a urinary catheter as well. The patient's preoperative hemoglobin was 14.3 and the day after surgery 12.8, and thereafter remained stable. Her serum iron was measured at 24 (37 to 145) and vitamin B12 level 378 (211 to 946). The patient received Venofer 100 mg intravenously daily during her hospital stay for a total of 1000 mg and she received 1 mg of vitamin B12 intramuscular. She was ambulating well and required some Toradol intermittently for muscle spasms of her torso, legs, and abdominal cramping. She continued to have an ileus and was maintained NPO. On the fifth postoperative day, her urinary Brock catheter was removed, but she still had very little Kock pouch output. Her white count was 6800 and hemoglobin 13.1. Chemistries were within normal limits. The following day, she was started on a clear liquid diet with intermittent clamping of the gastrostomy and the AUTOCAD OPERATOR was discontinued. She was given Hingham 5/325 mg every 4 hours prn pain. Her diet was advanced to a full liquid diet with progressive clamping of the gastrostomy, but then she developed increasing abdominal pain. Plain films of the abdomen showed dilated bowel without any obstructive point and she was having a mild amount of Kock pouch output. She was kept NPO to allow her bowel to return to normal function. She had very little gastrostomy output and now had 500 mL of Kock pouch ileostomy output. In view of her persistent cramping and belching despite the abdomen being soft and nondistended, she underwent a CT scan of abdomen and pelvis with oral and intravenous contrast, and TPN was started on the eleventh postoperative day. She was also given Reglan 10 mg intravenous every six hours. The CT scan revealed only mild bowel wall thickening, but no obstructions or fluid collections. She thereafter had much increased Kock pouch ileostomy output and continued afebrile with normal white blood cell count 8300. Chemistries including magnesium and phosphorus were within normal limits on the TPN. She was started back on a clear liquid diet on the twelfth postoperative day with plugging of the gastrostomy continuously, as there was scant output. She then had a large volume of watery ileostomy output consistent with bacterial overgrowth enteritis. She was started on Cipro 500 mg every 12 hours and Flagyl 250 mg t.i.d. Stool for C. difficile toxin was negative. Her TPN was continued. Thereafter she had gradual improvement and was able to be advanced to a continent ileostomy low residue diet. She was able to then eat 50% of her diet without cramping or any upper gastrointestinal symptoms and was doing much better. Her emil and sutures were removed and Steri-Strips applied, and the right lower quadrant prior stoma site incision and the midline incision both healed nicely. The gastrostomy was removed on the fifteenth postoperative day. The TPN was decreased and tapered off. The following day the indwelling Kock pouch ileostomy catheter was removed and she was begun on nursing supervised self-intubations every three hours from awakening to bedtime as well as prn. The TPN infusion was completed and the PICC line was removed. She had 2400 mL of urine output and 1090 mL of Kock pouch ileostomy output tolerating a low-residue diet. She was discharged with prescriptions given for [place] 5/325 mg #30, Ambien 5 mg #30, and Ativan 1 mg #40 prn cramping. Full supplies, instructions and limitations were provided and discussed. She did well with her self-intubations. She is to be followed up in one week and prn, and the Cipro and Flagyl were discontinued. DISCHARGE DIAGNOSES: 1. Malfunctioning Kock pouch continent ileostomy. 2. History of atrial fibrillation, status post ablation in 2012. 3. Status post multiple abdominal operations. 3.1. Proctocolectomy and Kock pouch continent ileostomy in 1984. 3.2. Revision of Kock pouch nipple valve in 1985. 3.3. Revision of Kock pouch stoma stricture in 2007. 3.4. Revision of Kock pouch stoma and access segment in depth 09/25/2016 OPERATION PERFORMED ON THIS ADMISSION: Laparotomy with complex revision of Kock pouch with creation of new valve and stoma, and relocation of the stoma to the left lower quadrant, and catheter gastrostomy. Vishnu Cuevas M.D. DR: SEEMA JOB#: [id number] MATT
== END 2016-10-30 10:21 | disposition home or self-care (01) | DRG 330 ==
LOC: 3E 09:56
PROC: 02HV33Z Insertion of Infusion Device into Superior Vena Cava, Percutaneous Approach (ICD-10-PCS; 2016-10-12)
PROC: 0D1B0Z4 Bypass Ileum to Cutaneous, Open Approach (ICD-10-PCS; principal; 2016-10-13 09:30)
PROC: 0D9630Z Drainage of Stomach with Drainage Device, Percutaneous Approach (ICD-10-PCS; principal; 2016-10-13 09:30)
PROC: 0WQFXZ2 Repair Abdominal Wall, Stoma, External Approach (ICD-10-PCS; principal; 2016-10-13 09:30)
DX: K94.13 Enterostomy malfunction (principal); K51.90 Ulcerative colitis, unspecified, without complications; K56.69 Other intestinal obstruction; K56.7 Ileus, unspecified; Y83.8 Other surgical procedures as the cause of abnormal reaction of the patient, or of later complication, without mention of misadventure at the time of the procedure; G89.29 Other chronic pain; M54.5 Low back pain; G89.18 Other acute postprocedural pain; R10.9 Unspecified abdominal pain
CPT/HCPCS: 36415; 36569; 71010; 74000; 74177; 76937; 80048; 80053; 81001; 82150; 82607; 82746; 82962; 83540; 83550; 83690; 83735; 84100; 85025; 85610; 85730; 86850; 86900; 86901; 86920; 87493; 93005; 94003; 94150; J1815; J2250; J2405; J2710; J2765

== ENCOUNTER 2017-02-07 11:55 | Day surgery (SDC) | payer BC ==
--- NOTE | 2017-02-06 18:30 | Pre-op HX & Phy Repo 2 SIG ---
DATE OF ENDOSCOPY: 02/07/2017 Scheduled for Kock pouch endoscopy. HISTORY OF PRESENT ILLNESS: The patient is a 66-year-old female in overall good health who is having intermittent difficulty with intubation of her Kock pouch continent ileostomy. The patient has a past history of ulcerative colitis and underwent proctocolectomy with Kock pouch in 1984. She required revisions in 1985 and 2007 and September 2016 followed by laparotomy on 10/13/2016 with complex revision of the Kock pouch involving creation of a new valve and stoma with relocation of the stoma to the left lower quadrant and catheter gastrostomy. Following discharge in October 2016 the patient did well intubating with a 30-Hungarian Medena catheter with occasional drops or streaks of blood. The patient changed to using a 30-Hungarian Stephanie catheter at the end of November and no longer had any bleeding. She was intubating five times per day and sleeping through the night. The patient then wanted to resume using her Medena catheter because it has better drainage characteristics. She developed difficulty inserting the Medena catheter at about 2 inches into the stoma, but the Stephanie catheter went in readily. The patient continues to have difficulty with the Medena catheter and one episode of difficulty with the Stephanie catheter. The patient is going to undergo Kock Pouch endoscopy to determine the nature of the difficulty and to plan treatment options. OPERATIONS: In addition to the list at the end of this dictation, she has undergone knee and elbow surgery. MEDICATIONS: Aspirin 81 mg daily, and Celebrex and ibuprofen for chronic low back pain. ALLERGIES: None. REVIEW OF SYSTEMS: 1) The patient has a history of atrial fibrillation and underwent ablation in 2012 2) The patient had her equivocal or borderline stress test in August 2016 which was followed by CT scan of the chest, which was unremarkable. PHYSICAL EXAMINATION: The patient is 5 foot 8 inches and approximately 133 pounds. She is arriving from out of town and will be examined upon arrival and dictated separately. IMPRESSION: 1. Malfunctioning Kock pouch continent ileostomy with difficulty with intubation 2. History of atrial fibrillation, status post ablation in 2012. 3. History of chronic low back pain. 4. History of ulcerative colitis. 5. Status post multiple abdominal operations. 5.1. Proctocolectomy and Kock pouch continent ileostomy 1984. 5.2. Revision of Kock pouch nipple valve 1985. 5.3. Revision of Kock pouch stoma stricture 2007. 5.4. Revision of Kock pouch stoma and access segment in depth 09/25/2016 5.5. Laparotomy with creation of a new valve and stoma with preservation of Kock pouch and relocation of the stoma to the left lower quadrant 10/13/2016 DISCUSSION: The patient has been through pouch endoscopy before and understands the indications and options. She will not require any anesthesia or sedation and agrees to proceed. Vishnu Cuevsa M.D. DR: FLAQUITA JOB#: [id number] CC: MATT
[~2017-02-07] VITALS: Ht 170.2 cm; Wt 61.2 kg
[~2017-02-07 11:55] MED LIST changes: +AMBIEN5 MG ORAL; +ATIVAN1 MG ORAL; +NORCO 5-325 TA1 EACH ORAL; +OMEGA 3 FISH O1 EAC1 PO
--- NOTE | 2017-02-07 12:15 | Pre-Procedure Note/Attestation ---
Pre-Procedure Note/Attestation Complete Prior to Procedure Planned Procedure: not applicable Procedure Narrative: Kock Pouch endoscopy Indications for Procedure Pre-Operative Diagnosis: Malfunctioning Kock Pouch with intermittent difficulty with intubation Attestation I attest that I discussed the nature of the procedure; its benefits; risks and complications; and alternatives (and the risks and benefits of such alternatives ), prior to the procedure, with the patient (or the patient's legal termite control service representative). I attest that, if there was a reasonable possibility of needing a blood transfusion, the patient (or the patient's legal termite control service representative) was given the [facility] standardized written summary, pursuant to the Damion [place] Blood Safety Act ([place] Health and Safety Code # 1645, as amended). I attest that I re-evaluated the patient just prior to the surgery and that there has been no change in the patient's H&P, except as documented below: none LOC HUMPHRIES February 07, 2017 12:15
[2017-02-07 12:39] VITALS: BP 160/90
--- NOTE | 2017-02-07 13:04 | Brief Operative Note ---
Immediate Post Operative Note Operative Note Pre-op Diagnosis: Malfunctioning Kock Pouch with intermittent difficulty with intubation Procedure: Kock Pouch endoscopy Post-op Diagnosis: normal exam Post-op Diagnosis: same as pre-op Findings: consistent w/pre-op dx studies Surgeon: yady Anesthesia: other - none Specimen: none Complications: none Condition: stable Estimated Blood Loss: none Drains: none Implant(s) used?: LOC Dyer February 07, 2017 13:04
[2017-02-07 13:10] VITALS: BP 144/90
--- NOTE | 2017-02-08 | Procedure Note ---
DATE OF PROCEDURE: 02/07/2017 ENDOSCOPY PROCEDURE REPORT ENDOSCOPIST: Vishnu Cuevas M.D. ANESTHESIA: None. SEDATION: None. PRE-ENDOSCOPIC DIAGNOSES: 1. Malfunctioning Kock pouch continent ileostomy with intermittent difficulty with intubation. 2. History of ulcerative colitis. 3. Status post multiple abdominal operations. 3.1. Proctocolectomy and Kock pouch in 1984. 3.2. Revision of Kock pouch nipple valve in 1985. 3.3. Revision of Kock pouch stoma stricture in 2007. 3.4. Revision of Kock pouch stoma and access segment on 09/25/2016. 3.5. Laparotomy with creation of new valve and stoma with preservation of Kock pouch and relocation of the stoma to the left lower quadrant on 10/13/2016. POST-ENDOSCOPIC DIAGNOSES: 1. Malfunctioning Kock pouch continent ileostomy with intermittent difficulty with intubation. 2. History of ulcerative colitis. 3. Status post multiple abdominal operations. 3.1. Proctocolectomy and Kock pouch in 1984. 3.2. Revision of Kock pouch nipple valve in 1985. 3.3. Revision of Kock pouch stoma stricture in 2007. 3.4. Revision of Kock pouch stoma and access segment on 09/25/2016. 3.5. Laparotomy with creation of new valve and stoma with preservation of Kock pouch and relocation of the stoma to the left lower quadrant on 10/13/2016. ENDOSCOPY PERFORMED: Kock pouch endoscopy. FINDINGS: A straight access segment with normal pouch and well-formed nipple valve. DESCRIPTION OF PROCEDURE: The patient was positioned supine in the gastrointestinal laboratory and examined. The abdomen is soft, flat, and nontender. Well-healed midline incision and right lower quadrant incision from closure of prior stoma location. The Kock pouch stoma is low in the left lower quadrant and well-formed. There is no evidence of abdominal wall hernia. Using a GIF-P140 endoscope, the stoma was entered, and under direct vision, the pouch was entered at approximately 8 cm from the mucocutaneous junction to the tip of the nipple valve. The pouch was distensible and mucosa appeared normal. Retroflex views revealed a circumferentially well-formed nipple valve. Withdrawal views confirmed the above findings. After removing the endoscope, I reinserted it because the patient had stated she has difficulty about 2 inches into the stoma, but again there was no evidence of stricturing or angulation. I was then able to readily insert a 28-Italian Brock catheter into the pouch to evacuate air and liquid. I reassured the patient that she will be able to intubate well using either her Medena or Stephanie or 28-Italian Brock catheters. The patient tolerated the endoscopy well. Vishnu Cuevas M.D. DR: TAYLOR JOB#: [id number] CC:
== END 2017-02-07 15:30 | disposition home or self-care (01) ==
LOC: GAS 11:55
DX: K94.13 Enterostomy malfunction (principal); Y83.8 Other surgical procedures as the cause of abnormal reaction of the patient, or of later complication, without mention of misadventure at the time of the procedure; Y92.009 Unspecified place in unspecified non-institutional (private) residence as the place of occurrence of the external cause; G89.29 Other chronic pain; M54.5 Low back pain; Z87.19 Personal history of other diseases of the digestive system; Z79.82 Long term (current) use of aspirin; Z79.1 Long term (current) use of non-steroidal anti-inflammatories (NSAID)

== ENCOUNTER → 2017-04-24 | Outpatient (CLI) | payer BC, MEDICARE ==
[~2017-04-24] VITALS: Ht 30.5 cm; Wt 0.0 kg
[~2017-04-24] MED LIST changes: +Atropine Inj 1mg/10ml Syr IV PRN; +DiphenhydrAMINE 50mg/ml Inj IVP PRN; +Hydromorphone 0.5mg/0.5ml inj IVP PRN; +Midazolam 2mg/2ml Inj IVP PRN; +PROBIOTIC1 EAC5 PO
--- NOTE | 2017-04-25 06:52 | Anethesia Preoperative Eval ---
Anesthesia Pre-op PMH/ROS General Date of Evaluation: Apr 25, 2017 Time of Evaluation: 06:48 Anesthesiologist: santy ASA Score: ASA 3 Mallampati Score Class I : Soft palate, uvula, fauces, pillars visible Class II: Soft palate, uvula, fauces visible Class III: Soft palate, base of uvula visible Class IV: Only hard plate visible Mallampati Classification: Class II Surgeon: vee Diagnosis: malfunctioning boyd pouch Surgical Procedure: egd Anesthesia History: none Social History: smoking - former smoker 02/06/2017 Family History: no anesthesia problems Allergies: Uncoded Allergies: hay fever (Allergy, Unknown, 09/24/16) Medications: see eMAR Past Medical History Cardiovascular: Reports: arrhythmia, other - cardiac ablation Pulmonary: Reports: other - pneumonia, cough Gastrointestinal/Genitourinary: Reports: other - colitis, gi bleed, bcir Musculoskeletal/Integumentary: Reports: DDD, OA Anesthesia Pre-op Phys. Exam Physician Exam Constitutional: NAD Neurologic: CN 2-12 intact Cardiovascular: RRR Respiratory: CTA Gastrointestinal: S/NT/ND Airway Exam Mallampati Score: Class II MO: full Neck: supple TMD: 2fb ROM: full Teeth: intact Anesthesia Pre-op A/P Studies Pre-op Studies: EKG - nsr Risk Assessment & Plan Assessment: asa3 Plan: mac Status Change Before Surgery: No Pre-Antibiotics Drug: SINGH Haque Apr 25, 2017 06:52
--- NOTE | 2017-04-25 09:57 | Immediate Post-Op Evaluation ---
Immediate Post-Op Evalulation Immediate Post-Op Evalulation Procedure: egd Date of Evaluation: Apr 25, 2017 Time of Evaluation: 10:22 IV Fluids: 0.9ns 550ml Blood Products: none Estimated Blood Loss: negligible Blood Pressure Systolic: 140 Blood Pressure Diastolic: 81 Pulse Rate: 65 Respiratory Rate: 18 O2 Sat by Pulse Oximetry: 100 Temperature (Fahrenheit): 97.4 Pain Score (1-10): 0 Nausea: No Vomiting: No Complications none Patient Status: awake, reacts Hydration Status: adequate Drug: SINGH Haque Apr 25, 2017 09:57
[2017-04-25 10:37] VITALS: BP 140/81
--- NOTE | 2017-04-25 10:37 | 48 Hour Post Anesthesia Eval ---
Post Anesthesia Evaluation Procedure: egd and endopouch Date of Evaluation: Apr 25, 2017 Time of Evaluation: 10:35 Blood Pressure Systolic: 140 0: 81 Pulse Rate: 65 Respiratory Rate: 18 Temperature (Fahrenheit): 97.4 O2 Sat by Pulse Oximetry: 100 Airway: patent Nausea: No Vomiting: No Pain Intensity: 0 Hydration Status: adequate Cardiopulmonary Status: stable Mental Status/LOC: patient returned to baseline Post-Anesthesia Complications: none Follow-up care needed: N/A SINGH RYAN Apr 25, 2017 10:37
== END | disposition home or self-care (01) ==
LOC: PAN 09:31
DX: I49.9 Cardiac arrhythmia, unspecified (principal); K52.9 Noninfective gastroenteritis and colitis, unspecified; M19.90 Unspecified osteoarthritis, unspecified site; Z87.891 Personal history of nicotine dependence; K91.858 Other complications of intestinal pouch

== ENCOUNTER 2017-04-25 07:43 | Day surgery (SDC) | payer MEDICARE, BC ==
[~2017-04-25] VITALS: Ht 172.7 cm; Wt 61.7 kg
[2017-04-25] VITALS (8 sets, daily range): BP systolic 124–140; BP diastolic 69–83
[~2017-04-25 07:43] MED LIST changes: -Atropine Inj 1mg/10ml Syr IV PRN; -DiphenhydrAMINE 50mg/ml Inj IVP PRN; -Hydromorphone 0.5mg/0.5ml inj IVP PRN; -Midazolam 2mg/2ml Inj IVP PRN; -PROBIOTIC1 EAC5 PO
[2017-04-25] MEDS ORDERED: PROBIOTIC1 EAC5 PO (08:35)
--- NOTE | 2017-04-25 09:03 | Pre-Procedure Note/Attestation ---
Pre-Procedure Note/Attestation Complete Prior to Procedure Planned Procedure: not applicable Procedure Narrative: egd Indications for Procedure Pre-Operative Diagnosis: gib Attestation I attest that I discussed the nature of the procedure; its benefits; risks and complications; and alternatives (and the risks and benefits of such alternatives ), prior to the procedure, with the patient (or the patient's legal retail customer service representative). I attest that, if there was a reasonable possibility of needing a blood transfusion, the patient (or the patient's legal retail customer service representative) was given the [facility] of Health Services standardized written summary, pursuant to the Damion [place]rav[place] Blood Safety Act ([place] Health and Safety Code # 1645, as amended). I attest that I re-evaluated the patient just prior to the surgery and that there has been no change in the patient's H&P, except as documented below: AYE VALDOVINOS Apr 25, 2017 09:03
--- NOTE | 2017-04-25 09:05 | Short Stay Surgery H&P ---
History of Present Illness History of Present Illness Chief Complaint black stools HPI Mily Chowdhury is a 67 year old female who was admitted on for Ulcertive Colitis Patient History Allergies: Uncoded Allergies: hay fever (Allergy, Unknown, 09/24/16) PAST MEDICAL HISTORY: (1) Ulcerative colitis (2) Abdominal pain (3) Kock Pouch bleeding Past Surgeries: Social History: Medication History Scheduled Aspirin* (Aspir 81*), 81 MG ORAL DAILY, (Reported) Ibuprofen (Ibuprofen Ib), 400 MG PO NEEDED, (Reported) Lactobacillus Combo No.11 (Probiotic), 1 EACH PO DAILY, (Reported) [place]-3 Fatty Acids/Fish Oil ([place] 3 Fish Oil Softgel), 1 EACH PO DAILY, ( Reported) Discontinued Medications Hydrocodone Bit/Acetaminophen 5-325* ([place]ak[place] 5-325*), 1 TAB ORAL Q4H PRN for For Pain, (Reported) Discontinued Reason: Pt stopped taking med Zolpidem Tartrate* (Ambien*), 5 MG ORAL BEDTIME PRN for Insomnia, (Reported) Discontinued Reason: Pt stopped taking med Review of Systems Cardiovascular: Reports: no symptoms Respiratory: Reports: no symptoms Skeletal: Reports: no symptoms Gastrointestinal: Reports: no symptoms Genitourinary: Reports: no symptoms Neurologic: Reports: no symptoms Endocrine: Reports: no symptoms Hematologic: Reports: no symptoms Physical Exam Vital Signs Last Vital Signs Date Time Temp Pulse Resp B/P Pulse Ox O2 Delivery O2 Flow Rate FiO2 04/25/17 08:38 97.2 73 18 133/81 98 Room Air Skin: normal HENT: normal Heart: normal Lungs: normal Abdomen: normal Extremities: normal Plan Plan of Care esophagogastroduodenoscopy and pouchoscopy Final Diagnosis: Attestation Are the patient's medical conditions optimized for surgery? Attestation Response: yes AYE VALDOVINOS Apr 25, 2017 09:05
[2017-04-25] MEDS ORDERED: Propofol 10mg/ml 20ml IV ONE (09:30)
[2017-04-25] MEDS ORDERED: Lidocaine 1% MPF 10mg/ml 5ml ONE (09:30)
--- NOTE | 2017-04-25 09:59 | Endoscopy Procedure Note ---
Endoscopy Procedure Note Indication for Procedure: gib Procedures Performed: EGD Operative Findings/Diagnosis: anastemotic stricture Specimen: yes Pt Tolerated Procedure Well: Yes Estimated Blood Loss: none Anesthesiologist: santy Anesthesia: MAC Implant(s) used?: No 50 yrs or older w/o bx or poly: Not Applicable 10yrs. F/U not recommended: Not Applicable AYE VALDOVINOS Apr 25, 2017 09:59
--- NOTE | 2017-04-25 12:00 | Procedure Note ---
DATE OF PROCEDURE: 04/25/2017 SURGEON: Clarence El M.D. PROCEDURE: Upper endoscopy with biopsy, , and enteroscopy. ANESTHESIOLOGIST: Kayli Mosher M.D. INSTRUMENT: Olympus adult flexible upper endoscope and upper . INDICATION: GI bleeding. REASON FOR PROCEDURE: The procedure, risks, benefits, and possible consequences, including hemorrhage, aspiration, perforation and infection, and alternative treatments, were explained to the patient/legal guardian by Dr. Clarence El and the patient/legal guardian understood and accepted these risks. PROCEDURE: After informed consent was obtained and the patient was adequately sedated, Olympus upper endoscope was advanced from the mouth into the second portion of the duodenum and retroflexion was performed in the stomach. The patient had evidence of diffuse gastritis. Random biopsy from antrum was obtained to rule out H. pylori infection. The patient had some irregularity and friability at the GE junction suggestive of maybe early esophagitis, but no obvious ulcerations or mass seen. The patient also had some incompetency of the lower esophageal sphincter. Most probably, causing the rotator Z-line and early esophagitis. At this time, the upper endoscope was retrieved and the patient was left on supine position for ileoscopy. Using the same scope into the pouch, retroflexion was performed in the pouch. The pouch looked very adequate. There was no obvious ulceration. There was no obvious blood or blood products in the pouch. She was actually some solid stool seen in the pouch. Then, the scope was advanced into the small intestine. We went all the way to about roughly 36 to 37 cm from the pouch in the small intestine. There was an anastomotic ulcerations, right at about 36 to 37 cm with some 2 to 3 clips left with some ulceration and maybe minimal blood oozing in that area. So, this is the highly suspicious for ischemic ulceration. At this time, the scope was gradually retrieved and procedure was terminated. SUMMARY OF FINDINGS: 1. Gastritis, status post biopsy. 2. Mildly incompetent lower esophageal sphincter with associated the irregularity at the Z-line and friability at GE junction, most probably esophagitis. 3. Anastomotic ischemic ulceration at about 37 cm from the pouch, otherwise normal exam. RECOMMENDATIONS: 1. Follow up biopsies and treat accordingly. 2. Case was discussed with Dr. Vishnu Cuevas. We are going to start the patient on Pentasa starting 4 g a day and we will also going to give the patient some occult blood testing papers to take home with and when she has black tarry stool she came tested to see if it is positive. If she does not respond to Pentasa other option will be to do a capsule endoscopy to rule out any other sources for gastrointestinal bleeding. I want to thank, Dr. Vishnu Cuevas, for this kind referral. Clarence El M.D. DR: RUEL JOB#: [id number] CC: Vishnu Cuevas M.D.; Fax#: [phone]
--- NOTE | 2017-04-27 00:53 | Cardiology Report ---
APPROVED REPORT EKG Measurement Heart [id number] ND [id number] Normal sinus rhythm Nonspecific ST and T wave abnormality Abnormal ECG
== END 2017-04-25 11:30 | disposition home or self-care (01) ==
LOC: GAS 07:43
DX: K29.50 Unspecified chronic gastritis without bleeding (principal); K22.0 Achalasia of cardia; K63.3 Ulcer of intestine; J30.1 Allergic rhinitis due to pollen; Z79.82 Long term (current) use of aspirin; Z79.899 Other long term (current) drug therapy
CPT/HCPCS: 43239; 44385; 93005; J2704; 94003; 94150

== ENCOUNTER 2017-06-12 09:39 | Outpatient (CLI) | payer MEDICARE, BC ==
[~2017-06-12 09:39] MED LIST changes: +PROBIOTIC1 EAC5 PO
[2017-06-12] MEDS ORDERED: PENTASA500 MG ORAL (10:27)
--- NOTE | 2017-06-12 10:27 | GI Progress Note ---
Assessment/Plan Problems: (1) Kock Pouch bleeding (2) Abdominal pain ICD Codes: R10.9 - Unspecified abdominal pain SNOMED: 06426083 (3) Ulcerative colitis ICD Codes: K51.90 - Ulcerative colitis, unspecified, without complications SNOMED: 53169976 Status: stable Status Narrative Seen with Dr. El. Assessment/Plan SUMMARY OF FINDINGS reviewed with patient: 1. Gastritis, status post biopsy. 2. Mildly incompetent lower esophageal sphincter with associated the irregularity at the Z-line and friability at GE junction, most probably esophagitis. 3. Anastomotic ischemic ulceration at about 37 cm from the pouch, otherwise normal exam. RECOMMENDATIONS: Follow up biopsies and treat accordingly. >> negative decrease pentasa to 6 tabs refer back to cardiology to dc ASA 81mg RTC x 2 months Subjective Subjective has bronchitis, abx x 10 days had greasy/spicy food and episode of bloody stools x 1 on 05/07/17 Objective T 98.2 BP 134/83 P 67 General Appearance: no apparent distress, alert Cardiovascular: normal rate Respiratory/Chest: normal breath sounds, no respiratory distress Abdominal Exam: normal bowel sounds, non tender, soft Extremities: normal range of motion Emily Mccall N.P. Jun 12, 2017 10:27
[2017-06-12 11:10] VITALS: BP 134/83
[2017-06-12] MEDS ORDERED: VITAMIN C500 M1 ORAL (11:10)
== END 2017-06-12 10:10 | disposition home or self-care (01) ==
LOC: PAN 09:39
DX: R10.9 Unspecified abdominal pain (principal); K51.90 Ulcerative colitis, unspecified, without complications; J20.9 Acute bronchitis, unspecified
CPT/HCPCS: 99211

== ENCOUNTER → 2018-09-18 | Day surgery (SDC) | payer BC ==
--- NOTE | 2018-09-16 16:15 | Pre-op HX & Phy Repo 2 SIG ---
DATE OF ADMISSION: 09/18/2018 PREENDOSCOPY HISTORY AND PHYSICAL Scheduled for outpatient Kock pouch endoscopy with anesthesia on 09/18/2018. HISTORY OF PRESENT ILLNESS: The patient is a 68-year-old female in overall good health with a malfunctioning Kock pouch continent ileostomy with difficulty intubating her pouch to evacuate stool 50% of the time about 2 to 3 inches into the stoma and recurring episodes of gross incontinence recently. The patient has a past history of ulcerative colitis and underwent proctocolectomy with Kock pouch in 1984 and has had multiple revisions, most recently in October 2016 with creation of a new valve and stoma and relocation of the stoma to the left lower quadrant. She had bleeding after that and endoscopy revealed that there was some superficial ulcerations at an enteroenterostomy anastomosis, 30 cm proximal to the pouch and this was controlled with Pentasa and resolved. She has had recurring episodes of pouchitis with cramps and diarrhea and frequent intubations, treated with Cipro and clindamycin or both together. She also takes probiotics daily. In January of 2018, she developed severe persistent perineal pain and phantom rectum symptoms and has had a CT scan, MRI, the chiropractic exam and acupuncture, none of which have been helpful and the studies have not revealed any changes other than degenerative changes of the spine. She had attempts at nerve blocks by Pain Management, which has not been helpful. The patient usually intubates 4 to 6 times per 24 hours, but recently more frequently and required cefdinir for her persistent and recurrent pouchitis. She is scheduled to undergo endoscopy of her pouch with MAC anesthesia. She also states that sometimes the stoma protrudes about 0.25 inch above the skin and she is having much increased mucus. She uses mineral oil to lubricate her 30-Belarusian silicone catheter, but half of the time the tube goes in readily and easily with no problem and half of the time she just manipulates it and has to come back and try again later. MEDICATIONS: Aspirin 81 mg daily, in the past Celebrex and ibuprofen for chronic low back pain and Pentasa for ulcerations of the small bowel at prior surgical site. ALLERGIES: Flagyl. OPERATIONS: In addition to the list at the end of this dictation, she has undergone knee and elbow surgery. REVIEW OF SYSTEMS: The patient has a history of atrial fibrillation and underwent cardiac ablation in 2012. She had equivocal borderline stress test in August 2016 followed by additional testing which was normal. PHYSICAL EXAMINATION: GENERAL: The patient is 5 foot 8 inches, approximately 130 pounds. She is arriving from out of town and will be examined upon arrival and dictated separately. IMPRESSION: 1. Malfunctioning Kock pouch continent ileostomy with intermittent difficulty with intubation and episodes of incontinence. 2. History of ulcerative colitis. 3. History of atrial fibrillation status post cardiac ablation 2012. 4. History of chronic low back pain. 5. Recent history of severe pelvic-perineal pain with phantom recta symptoms 6. Status post multiple abdominal operations. 1) Proctocolectomy and Kock pouch in 1984. 2) Revision of Kock pouch valve in 1985. 3) Revision of Kock pouch stoma stricture 2007. 4) Revision of Kock pouch stoma and access segment in depth 09/25/2016 5) Laparotomy with creation of a new valve and stoma with preservation of the Kock pouch and relocation of the stoma to the left lower quadrant 2016 PLAN: The patient has undergone a pouch endoscopy in the past and understands the indications, options, and risks. She wished to proceed with sedation as in the past it has been uncomfortable. She understands the plan and agrees to proceed. Vishnu Cuevas M.D. DR: Popeye JOB#: [id number] CC: MATT
[~2018-09-18] VITALS: Ht 172.7 cm; Wt 57.6 kg
[2018-09-18] VITALS (9 sets, daily range): BP systolic 119–130; BP diastolic 66–85
[~2018-09-18] MED LIST changes: +DiphenhydrAMINE 50mg/ml Inj IVP PRN; +LR 1000ml ONE; +Lidocaine 1% MPF 10mg/ml 5ml ONE; +Midazolam 2mg/2ml Inj ONE; +PENTASA500 MG ORAL; +Propofol 200mg/20ml IV ONE; +VITAMIN C500 M1 ORAL; +fentaNYL 100 mcg/2 mL IV PRN
--- NOTE | 2018-09-18 11:11 | Anethesia Preoperative Eval ---
Anesthesia Pre-op PMH/ROS General Date of Evaluation: Sep 18, 2018 Time of Evaluation: 13:10 Anesthesiologist: Castro ASA Score: ASA 2 - ASA 2E Mallampati Score Class I : Soft palate, uvula, fauces, pillars visible Class II: Soft palate, uvula, fauces visible Class III: Soft palate, base of uvula visible Class IV: Only hard plate visible Mallampati Classification: Class II Surgeon: Mason Diagnosis: malfunction of kock pouch Surgical Procedure: stoma exploration Anesthesia History: none Social History: alcohol use - social drinking Family History: no anesthesia problems Allergies: Coded Allergies: METRONIDAZOLE (Verified Allergy, Mild, 09/18/18) HEADACHE, DIZZINESS Uncoded Allergies: hay fever (Allergy, Unknown, 09/24/16) Medications: see eMAR Patient NPO?: Yes NPO Date: Sep 17, 2018 NPO Time: 21:00 Past Medical History Cardiovascular: Reports: arrhythmia - Afib, had heart ablation 2011 Pulmonary: Reports: other - bronchitis 2017, pneumonia with cough in past Gastrointestinal/Genitourinary: Reports: other - ulcerative colitis, BCIR - revision of stoma Neurologic/Psychiatric: Reports: depression/anxiety Endocrine: Denies: DM, hypothyroidism, steroids, other HEENT: Reports: other - sinus surgery 2018, tonsillectomy Hematology/Immune: Reports: other - measels as child Musculoskeletal/Integumentary: Reports: other - back pain - herniated disc, joint pain PSxH Narrative: knee and elbow surgery, heart ablation in 2011, tonsillectomy in past, sinus surgery in 2018, BCIR and revision of stoma, Anesthesia Pre-op Phys. Exam Airway Exam Mallampati Score: Class II MO: full ROM: full Teeth: intact - implants Dentures: no upper, no lower Anesthesia Pre-op A/P Labs chart reviewed Studies Pre-op Studies: EKG - NSR 63 bpm Risk Assessment & Plan Assessment: A&Ox4 Plan: MAC Status Change Before Surgery: No Pre-Antibiotics Given Within 1 Hr of Incision: No - none per surgeon Marlyn Erazo CRNA Sep 18, 2018 11:11
[2018-09-18 12:52] LABS: BASOPHILS % (AUTO) 2.1 % (0.0-2.0); EOSINOPHILS % (AUTO) 1.5 % (0.0-3.0); HEMATOCRIT 41.7 % (37.0-47.0); HEMOGLOBIN 13.7 G/DL (12.0-16.0); LYMPHOCYTES % (AUTO) 24.4 % (20.0-45.0); MEAN CORPUSCULAR VOLUME 89 FL (80-99); PLATELET COUNT 234 K/UL (150-450); RED CELL DISTRIBUTION WIDTH 14.1 % (11.6-14.8); WHITE BLOOD COUNT 6.4 K/UL (4.8-10.8)
[2018-09-18 13:18] LABS: ANION GAP 8 mmol/L (5-15); BLOOD UREA NITROGEN 15 mg/dL (7-18); CALCIUM 9.5 MG/DL (8.5-10.1); CARBON DIOXIDE 27 MMOL/L (21-32); CHLORIDE 106 MMOL/L (98-107); CREATININE 0.9 MG/DL (0.55-1.30); SODIUM 141 MMOL/L (136-145)
--- NOTE | 2018-09-18 13:19 | Pre-Procedure Note/Attestation ---
Pre-Procedure Note/Attestation Complete Prior to Procedure Planned Procedure: not applicable Procedure Narrative: Kock pouch endoscopy Indications for Procedure Pre-Operative Diagnosis: malfunctioning Kock pouch Attestation I attest that I discussed the nature of the procedure; its benefits; risks and complications; and alternatives (and the risks and benefits of such alternatives ), prior to the procedure, with the patient (or the patient's legal lead generation representative). I attest that, if there was a reasonable possibility of needing a blood transfusion, the patient (or the patient's legal lead generation representative) was given the [facility] standardized written summary, pursuant to the Damion Shravan Blood Safety Act ([place] Health and Safety Code # 1645, as amended). I attest that I re-evaluated the patient just prior to the surgery and that there has been no change in the patient's H&P, except as documented below:none Vishnu Cuevas MD Sep 18, 2018 13:19
--- NOTE | 2018-09-18 14:05 | Immediate Post-Op Evaluation ---
Immediate Post-Op Evalulation Immediate Post-Op Evalulation Procedure: kock pouch endoscopy Date of Evaluation: Sep 18, 2018 Time of Evaluation: 14:25 IV Fluids: LR 300 ml Blood Products: 0 Estimated Blood Loss: 0 Urinary Output: 0 Blood Pressure Systolic: 119 Blood Pressure Diastolic: 80 Pulse Rate: 63 Respiratory Rate: 22 O2 Sat by Pulse Oximetry: 100 Temperature (Fahrenheit): 97 Pain Score (1-10): 0 Nausea: No Vomiting: No Complications none Patient Status: awake, reacts, patent Hydration Status: adequate Given Within 1 Hr of Incision: No - none per surgeon Marlyn Erazo CRNA Sep 18, 2018 14:05
--- NOTE | 2018-09-18 14:07 | 48 Hour Post Anesthesia Eval ---
Post Anesthesia Evaluation Procedure: kock pouch endoscopy Date of Evaluation: Sep 18, 2018 Time of Evaluation: 14:33 Blood Pressure Systolic: 116 0: 81 Pulse Rate: 58 Respiratory Rate: 18 Temperature (Fahrenheit): 97 O2 Sat by Pulse Oximetry: 100 Airway: patent Nausea: No Vomiting: No Pain Intensity: 0 Hydration Status: adequate Mental Status/LOC: patient returned to baseline Follow-up care needed: patient intructions given Marlyn Erazo CRNA Sep 18, 2018 14:07
--- NOTE | 2018-09-18 14:19 | Brief Operative Note ---
Immediate Post Operative Note Operative Note Pre-op Diagnosis: malfunctioning Kock pouch Procedure: Kock pouch endoscopy Post-op Diagnosis: partially slipped valve of Kock Pouch Post-op Diagnosis: same as pre-op Findings: consistent w/pre-op dx studies Surgeon: yady Anesthesiologist: brit Anesthesia: MAC Specimen: none Complications: none Condition: stable Fluids: none Estimated Blood Loss: none Drains: none Implant(s) used?: No Vishnu Cuevas MD Sep 18, 2018 14:19
--- NOTE | 2018-09-18 19:30 | Procedure Note ---
DATE OF PROCEDURE: 09/18/2018 ENDOSCOPY PROCEDURE REPORT ENDOSCOPIST: Vishnu Cuevas M.D. JOB COACH/JOB DEVELOPER: None. HEDGE FUND ACCOUNTANT: Dr. Erazo. ANESTHESIA: IV sedation MAC. PRE-ENDOSCOPY DIAGNOSIS: Malfunctioning Kock pouch continent ileostomy with difficult intubation and intermittent incontinence. POST-ENDOSCOPY DIAGNOSIS: Malfunctioning Kock pouch continent ileostomy with difficult intubation and intermittent incontinence. ENDOSCOPY PERFORMED: Kock pouch endoscopy. FINDINGS: A partially slipped nipple valve. DESCRIPTION OF PROCEDURE: The patient was positioned supine in the GI lab and given intravenous sedation. Using a GIF-P140 endoscope, I tried several times to enter the pouch, but there were several angulations. I then tried a 28-Serbian Brock, 26-Serbian Brock, and finally 24-Serbian Brock and was able to enter the pouch and irrigate it. I then removed the catheter and now was able to insert the endoscope well into the pouch. The pouch mucosa was completely normal without any sign of inflammation. Retroflexed views revealed the nipple valve to be partially slipped. The pouch was suctioned empty of insufflated air and then the scope removed. I was then able to fairly readily insert a 26-Serbian Brock into the pouch and irrigated and removed it. The patient will require surgical revision of her Kock pouch. She tolerated the endoscopy well. Vishnu Cuevas M.D. DR: CHING JOB#: [id number] CC: MATT
== END | disposition home or self-care (01) ==
LOC: GAS 12:02
DX: K94.13 Enterostomy malfunction (principal); Y83.8 Other surgical procedures as the cause of abnormal reaction of the patient, or of later complication, without mention of misadventure at the time of the procedure; Y92.009 Unspecified place in unspecified non-institutional (private) residence as the place of occurrence of the external cause; I48.91 Unspecified atrial fibrillation; F32.9 Major depressive disorder, single episode, unspecified; F41.9 Anxiety disorder, unspecified; Z87.19 Personal history of other diseases of the digestive system; Z90.49 Acquired absence of other specified parts of digestive tract; Z79.82 Long term (current) use of aspirin; Z88.3 Allergy status to other anti-infective agents
CPT/HCPCS: 36415; 44385; 80048; 85025; 93005; J2250; J2405; J2704; 94003; 94150

== ENCOUNTER 2018-09-24 09:29 | Inpatient (IN) | payer BC ==
--- NOTE | 2018-09-23 15:45 | Pre-op HX & Phy Repo 2 SIG ---
DATE OF ADMISSION: 09/24/2018 SCHEDULED FOR SURGERY: September 25, 2018 HISTORY OF PRESENT ILLNESS: The patient is a 68-year-old female in overall good health admitted urgently with a malfunctioning Kock pouch continent ileostomy with a partially slipped nipple valve scheduled to undergo revision of her Kock pouch. She has been having severe difficulty intubating her pouch 50% of the time about 2 to 3 inches into the stoma and has been having recurring episodes of gross incontinence of stool recently. The patient has a past history of ulcerative colitis and all her operations will be listed at the end of this dictation. She underwent proctocolectomy with Kock pouch in 1984, most recent revision in October 2016 with relocation of the stoma to the left lower quadrant and creation of a new valve and stoma. Postoperatively, she had some intermittent bleeding from an enteroenterostomy anastomosis 30 cm proximal to the pouch and this was controlled with oral Pentasa and resolved. She has had recurring episodes of pouchitis with cramps and diarrhea needing frequent intubations, treated with Cipro or clindamycin or both together. She also takes probiotics. PAST MEDICAL HISTORY AND MEDICATIONS: Soma prn; Aspirin 81 mg daily in the past , Celebrex and ibuprofen for chronic low back pain, and in the past Pentasa; Cipro and/or Clindamycin prn pouchitis ALLERGIES: Flagyl. OPERATIONS: In addition to the list at the end of this dictation, she has undergone knee and elbow surgery. REVIEW OF SYSTEMS: 1) Past history of atrial fibrillation. She underwent cardiac ablation in 2012. She has had equivocal borderline stress test in August 2016 followed by additional testing, which was normal. 2) In January 2018, the patient developed severe perineal and phantom rectum pain and symptoms and has undergone a thorough evaluation without any findings. Two nerve blocks by Pain Management have not been helpful PHYSICAL EXAMINATION: GENERAL: The patient is 5 foot 8 inches, approximately 130 pounds. HEENT: Within normal limits. LUNGS: Clear. HEART: Regular rhythm. BREASTS: Without masses. ABDOMEN: Soft with a long midline scar and scars in the right side of the abdomen. The stoma of the Kock pouch is low in the left lower quadrant. There is no evidence of abdominal wall hernia. PELVIC: Normal per primary care physician recently. RECTAL: Status post proctectomy. EXTREMITIES: Without edema. Pulses 3+ femoral to pedal bilaterally. NEUROLOGIC: Physiologic. IMPRESSION: 1. Malfunctioning Kock pouch continent ileostomy with desussception of the nipple valve with incontinence and difficulty with intubation (slipped valve) 2. History of atrial fibrillation, status post cardiac ablation 2012. 3. History of chronic low back pain. 4. Recent history of severe pelvic-perineal pain with phantom rectum symptoms 5. History of ulcerative colitis. 6. STATUS POST MULTIPLE ABDOMINAL OPERATIONS: 7. Proctocolectomy and Kock pouch in 1984. 8. Revision of Kock pouch valve 1985. 9. Revision of Kock pouch stoma stricture 2007. 10. Revision of Kock pouch stoma and access segment in depth September 25, 2016 11. Laparotomy with creation of a new valve and stoma with preservation of the Kock pouch and relocation of the stoma to the left lower quadrant 2016 PLAN: The patient will be admitted with insertion of a dual lumen PICC line, intravenous hydration during her bowel prep, and intravenous antibiotics started the night before surgery and preoperative subcutaneous heparin. She will have a catheter placed into her Kock pouch to continuous gravity drainage with every three hour irrigations by the nursing staff. I have had a full discussion with the patient about the nature of her condition and surgery, indications, alternatives, options, and risks. I have discussed the surgery to include laparotomy and revision of her Kock pouch slipped valve with all the options attendant with that and I have discussed the risks of bleeding, infection, injury to adjacent structures or organs, need for additional revisions or surgery on her pouch or stoma etc. The patient understands and agrees to proceed. Vishnu Cuevas M.D. DR: MELI/DIOMEDES JOB#: [id number] CC: MATT
[~2018-09-24] VITALS: Ht 172.7 cm; Wt 56.7 kg
[~2018-09-24 09:29] MED LIST changes: -DiphenhydrAMINE 50mg/ml Inj IVP PRN; -LR 1000ml ONE; -Lidocaine 1% MPF 10mg/ml 5ml ONE; -Midazolam 2mg/2ml Inj ONE; -Propofol 200mg/20ml IV ONE; -fentaNYL 100 mcg/2 mL IV PRN
[2018-09-24 09:50] VITALS: BP 129/77
[2018-09-24] MEDS ORDERED: Lidocaine 1% Plain 30 ml INJ SCH (10:00)
[2018-09-24] MEDS ORDERED: Heparin 2000 units/Ns 1000ml INJ SCH (10:00)
[2018-09-24] MEDS ORDERED: Zolpidem 5mg tab ORAL PRN (10:00)
[2018-09-24 10:54] LABS: BASOPHILS % (AUTO) 1.7 % (0.0-2.0); EOSINOPHILS % (AUTO) 1.5 % (0.0-3.0); HEMOGLOBIN 14.5 G/DL (12.0-16.0); LYMPHOCYTES % (AUTO) 22.6 % (20.0-45.0); MEAN CORPUSCULAR VOLUME 89 FL (80-99); MONOCYTES % (AUTO) 6.2 % (1.0-10.0); PLATELET COUNT 270 K/UL (150-450); RED BLOOD COUNT 4.93 M/UL (4.20-5.40); RED CELL DISTRIBUTION WIDTH 14.5 % (11.6-14.8); WHITE BLOOD COUNT 7.5 K/UL (4.8-10.8)
[2018-09-24 11:01] LABS: ANION GAP 11 mmol/L (5-15); BLOOD UREA NITROGEN 12 mg/dL (7-18); CALCIUM 9.4 MG/DL (8.5-10.1); CARBON DIOXIDE 26 MMOL/L (21-32); CHLORIDE 104 MMOL/L (98-107); CREATININE 0.9 MG/DL (0.55-1.30); POTASSIUM 3.8 MMOL/L (3.5-5.1); SODIUM 141 MMOL/L (136-145)
[2018-09-24 11:05] LABS: ALANINE AMINOTRANSFERASE 25 U/L (12-78); ALBUMIN 4.2 G/DL (3.4-5.0); ALBUMIN/GLOBULIN RATIO 1.2 (1.0-2.7); ALKALINE PHOSPHATASE 78 U/L (46-116); ASPARTATE AMINO TRANSFERASE 23 U/L (15-37); BILIRUBIN,TOTAL 0.8 MG/DL (0.2-1.0)
[2018-09-24] MEDS ORDERED: TIZANIDINE HCL4 MG ORAL (11:19)
[2018-09-24] MEDS ORDERED: BUDESONIDE0.5 GM MC (11:19)
[2018-09-24] MEDS ORDERED: SOMA350 MG PO (11:19)
[2018-09-24] MEDS ORDERED: ADVIL200 MG ORAL (11:19)
--- NOTE | 2018-09-24 11:44 | Anethesia Preoperative Eval ---
Anesthesia Pre-op PMH/ROS General Date of Evaluation: Sep 24, 2018 Time of Evaluation: 11:38 Anesthesiologist: Drea ASA Score: ASA 2 Mallampati Score Class I : Soft palate, uvula, fauces, pillars visible Class II: Soft palate, uvula, fauces visible Class III: Soft palate, base of uvula visible Class IV: Only hard plate visible Mallampati Classification: Class II Surgeon: Mason Diagnosis: Malfunctioning continent pouch Surgical Procedure: Ex lap. Revision of continent pouch Anesthesia History: none Family History: no anesthesia problems Allergies: Coded Allergies: METRONIDAZOLE (Verified Allergy, Mild, 09/18/18) HEADACHE, DIZZINESS Uncoded Allergies: hay fever (Allergy, Unknown, 09/24/16) Medications: see eMAR Patient NPO?: Yes Past Medical History Cardiovascular: Reports: valve dz - h/o A fib stable after ablasion; Denies: HTN, CAD, [place], arrhythmia, other Pulmonary: Denies: asthma, COPD, BRITTNEY, other Gastrointestinal/Genitourinary: Reports: GERD - mild, other - h/o UC s/p total colectomy; Denies: CRI, ESRD Neurologic/Psychiatric: Reports: depression/anxiety, other - chronic fantom rectal pain; Denies: dementia, CVA, TIA Endocrine: Denies: DM, hypothyroidism, steroids, other HEENT: Denies: cataract (L), cataract (R), glaucoma, WAMPANOAG (L), WAMPANOAG (R), other Hematology/Immune: Denies: anemia, DVT, bleeding disorder, other Musculoskeletal/Integumentary: Denies: OA, RA, DJD, DDD, edema, other Other: other - malnourished, recent lost of weight about 15 # PMH Narrative: as above PSxH Narrative: see H&P Anesthesia Pre-op Phys. Exam Physician Exam Last Vital Signs Date Time Temp Pulse Resp B/P (MAP) Pulse Ox O2 Delivery O2 Flow Rate FiO2 09/24/18 09:50 98.0 68 19 129/77 (94) 99 Constitutional: NAD Neurologic: CN 2-12 intact Cardiovascular: RRR, no M/R/G Respiratory: CTA Gastrointestinal: S/NT/ND Airway Exam Mallampati Score: Class II MO: full Neck: flexible ROM: full Teeth: intact Dentures: no upper, no lower Anesthesia Pre-op A/P Labs Hematology Test 09/24/18 10:25 White Blood Count 7.5 K/UL (4.8-10.8) Red Blood Count 4.93 M/UL (4.20-5.40) Hemoglobin 14.5 G/DL (12.0-16.0) Hematocrit 44.0 % (37.0-47.0) Mean Corpuscular Volume 89 FL (80-99) Mean Corpuscular Hemoglobin 29.5 PG (27.0-31.0) Mean Corpuscular Hemoglobin Concent 33.1 G/DL (32.0-36.0) Red Cell Distribution Width 14.5 % (11.6-14.8) Platelet Count 270 K/UL (150-450) Mean Platelet Volume 5.9 FL (6.5-10.1) L Neutrophils (%) (Auto) 68.0 % (45.0-75.0) Lymphocytes (%) (Auto) 22.6 % (20.0-45.0) Monocytes (%) (Auto) 6.2 % (1.0-10.0) Eosinophils (%) (Auto) 1.5 % (0.0-3.0) Basophils (%) (Auto) 1.7 % (0.0-2.0) Coagulation Test 09/24/18 10:25 Prothrombin Time 10.3 SEC (9.30-11.50) Prothromb Time International Ratio 1.0 (0.9-1.1) Activated Partial Thromboplast Time 25 SEC (23-33) Chemistry Test 09/24/18 10:25 Sodium Level 141 MMOL/L (136-145) Potassium Level 3.8 MMOL/L (3.5-5.1) Chloride Level 104 MMOL/L (98-107) Carbon Dioxide Level 26 MMOL/L (21-32) Anion Gap 11 mmol/L (5-15) Blood Urea Nitrogen 12 mg/dL (7-18) Creatinine 0.9 MG/DL (0.55-1.30) Estimat Glomerular Filtration Rate > 60 mL/min (>60) Glucose Level 112 MG/DL (74-106) H Calcium Level 9.4 MG/DL (8.5-10.1) Total Bilirubin 0.8 MG/DL (0.2-1.0) Aspartate Amino Transf (AST/SGOT) 23 U/L (15-37) Alanine Aminotransferase (ALT/SGPT) 25 U/L (12-78) Alkaline Phosphatase 78 U/L (46-116) Total Protein 7.8 G/DL (6.4-8.2) Albumin 4.2 G/DL (3.4-5.0) Globulin 3.6 g/dL Albumin/Globulin Ratio 1.2 (1.0-2.7) Studies Pre-op Studies: EKG - NSR, other - negative stress tests Risk Assessment & Plan Assessment: ASA 2 Plan: GA with ETT Status Change Before Surgery: No Pre-Antibiotics Drug: as scheduled Uday Shepard MD Sep 24, 2018 11:44
[2018-09-24] MEDS: Neomycin Sulfate 500mg Tab ORAL SCH ×3 (11:53→20:12)
[2018-09-24 12:00] VITALS: BP 132/83
--- NOTE | 2018-09-24 12:04 | Diagnostic Imaging Report ---
Indication: Cough Comparison: 10/21/2016 A single view chest radiograph was obtained. Findings: Cardiomediastinal appearance is within normal limits for age. The lungs are clear. Pulmonary vascularity is appropriate. The diaphragmatic contour is smooth and costophrenic angles are sharp. No pleural effusions are identified. The bones are unremarkable. Impression: No acute findings
--- NOTE | 2018-09-24 14:13 | Diagnostic Imaging Report ---
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 The left upper extremity was prepped with alcohol. All elements of maximal sterile barrier technique were followed including usage of a cap, mask, sterile gown, sterile gloves, hand hygiene and a large sterile sheet. Sonographic evaluation of the upper extremity was performed demonstrating a patent and compressible basilic vein. Access was obtained under real-time ultrasound guidance (with utilization of sterile gel and sterile probe cover) and digital image was saved and archived. An .018 wire was introduced. Needle exchanged for a 5 Maltese peel-away sheath. Measurements were obtained. A 5 Maltese dual-lumen Power PICC line catheter was cut to 50 cm and introduced over the wire. Peel-away sheath and wire were removed.Catheter was secured to the skin using 2-0 Prolene suture. Both ports aspirate and flush easily. Fluoroscopic images show distal tip in the superior vena cava. Total fluoroscopic time 18 seconds Impression: Successful placement of an upper extremity PICC line catheter
--- NOTE | 2018-09-24 14:59 | General Progress Note ---
Progress Note Progress Note Patient seen and examined. Reviewed recent endoscopy findings and surgical options including pouch revision, pouch resection with new continent ileostomy, pouch resection with conventional La ileostomy which she prefers to avoid. Indwelling Kock pouch catheter in place to continuous drainage, bowel prep, IV hydration. Vishnu Cuevas MD Sep 24, 2018 14:59
[2018-09-24] MEDS: D5 1/2NS w/KCl 20mEq 1,000 ML IV SCH (15:06)
[2018-09-24 16:00] VITALS: BP 134/87
[2018-09-24 17:26] LABS: APPEARANCE,URINE CLEAR; BILIRUBIN, URINE NEGATIVE (NEGATIVE); COLOR,URINE PALE YELLOW; GLUCOSE, URINE (UA) NEGATIVE (NEGATIVE); KETONES,URINE NEGATIVE (NEGATIVE); LEUKOCYTE ESTERASE ,URINE NEGATIVE (NEGATIVE); NITRITE,URINE NEGATIVE (NEGATIVE); PH,URINE 6 (4.5-8.0); PROTEIN,URINE NEGATIVE (NEGATIVE); UROBILINOGEN,URINE NORMAL MG/DL (0.0-1.0)
[2018-09-24] MEDS ORDERED: Ketorolac 30mg Inj IV SCH (17:49)
[2018-09-24] MEDS ORDERED: HYDROmorphone 1mg/ml Carpuject SUBQ PRN (18:00)
[2018-09-24 20:00] VITALS: BP 130/87
[2018-09-24] MEDS: Dyna-Hex 2% Top Sol 2oz TOPIC SCH (20:13)
[2018-09-24] MEDS: Ampicillin/Sulbactam Sod 3 GM in NS 110 ML IV SCH (23:28)
[2018-09-24] MEDS: Clindamycin 600mg 50 ML IV SCH (23:28)
[2018-09-25] VITALS (17 sets, daily range): BP systolic 100–130; BP diastolic 62–82
[2018-09-25] MEDS: D5 1/2NS w/KCl 20mEq 1,000 ML IV SCH (01:57)
[2018-09-25] MEDS: Clindamycin 600mg 50 ML IV SCH ×4 (05:30→23:22)
[2018-09-25] MEDS: Ampicillin/Sulbactam Sod 3 GM in NS 110 ML IV SCH ×4 (05:30→23:22)
[2018-09-25] MEDS ORDERED: Heparin 5000 units/ml inj SUBQ ONE (05:30)
[2018-09-25] MEDS ORDERED: Succinylcholine 20mg/ml 10ml vial ONE (07:01)
[2018-09-25] MEDS ORDERED: Zemuron 50mg/5ml Inj IV ONE (07:01)
[2018-09-25] MEDS ORDERED: NeoSporin Gu Irrig 1ml Amp IRRIG ONE (07:10)
[2018-09-25] MEDS ORDERED: Bacitracin 50000 Units Vial ONE (07:10)
--- NOTE | 2018-09-25 07:20 | Pre-Procedure Note/Attestation ---
Pre-Procedure Note/Attestation Complete Prior to Procedure Procedure Narrative: revision of Kock Pouch continent ileostomy Indications for Procedure Pre-Operative Diagnosis: malfunctioning Kock Pouch continent ileostomy Attestation I attest that I discussed the nature of the procedure; its benefits; risks and complications; and alternatives (and the risks and benefits of such alternatives ), prior to the procedure, with the patient (or the patient's legal pharmacy services representative). I attest that, if there was a reasonable possibility of needing a blood transfusion, the patient (or the patient's legal pharmacy services representative) was given the [facility] standardized written summary, pursuant to the [place] Blood Safety Act ([place] Health and Safety Code # 1645, as amended). I attest that I re-evaluated the patient just prior to the surgery and that there has been no change in the patient's H&P, except as documented below:none Vishnu Cuevas MD Sep 25, 2018 07:20
[2018-09-25] MEDS ORDERED: LR 1000ml ONE (07:30)
[2018-09-25] MEDS ORDERED: NS Irrig 1000ml ONE (07:30)
[2018-09-25] MEDS ORDERED: NS Irrig 4000ml IRRIG ONE (07:30)
[2018-09-25] MEDS ORDERED: Sterile Water Irrig 1000ml IRRIG ONE (08:00)
[2018-09-25] MEDS ORDERED: Tubing IV Secondary IV ONE (08:02)
[2018-09-25] MEDS ORDERED: LR 1000ml 1,000 ML IVLG SCH (08:22)
[2018-09-25] MEDS ORDERED: Midazolam 2mg/2ml Inj IVP PRN (08:30)
[2018-09-25] MEDS ORDERED: Metoclopramide 10mg/2ml Inj IVP PRN (08:30)
[2018-09-25] MEDS ORDERED: fentaNYL 100 mcg/2 mL IV PRN (08:30)
[2018-09-25] MEDS ORDERED: Acetaminophen (Non formulary) 100 ML IV ONE (08:30)
[2018-09-25] MEDS ORDERED: DiphenhydrAMINE 50mg/ml Inj IVP PRN ×2 (08:30→09:45)
[2018-09-25] MEDS ORDERED: Ketorolac 30mg Inj IV PRN (08:30)
[2018-09-25] MEDS ORDERED: Morphine Sulfate 10mg/ml Inj ONE (08:45)
[2018-09-25] MEDS ORDERED: fentaNYL 100 mcg/2 mL IV ONE (08:45)
[2018-09-25] MEDS ORDERED: Glycopyrrolate 0.2mg/ml 1ml Vial ONE (08:45)
[2018-09-25] MEDS ORDERED: Midazolam 2mg/2ml Inj ONE (08:45)
[2018-09-25] MEDS ORDERED: Lidocaine 1% MPF 10mg/ml 5ml ONE (08:45)
[2018-09-25] MEDS ORDERED: Propofol 200mg/20ml IV ONE (08:45)
[2018-09-25] MEDS ORDERED: Neostigmine 1mg/ml 10ml Inj ONE (08:45)
[2018-09-25] MEDS ORDERED: Sodium Chloride 10ml vial INJ ONE (08:45)
[2018-09-25] MEDS ORDERED: ePHEDrine 50mg/ml Inj ONE (08:45)
[2018-09-25] MEDS ORDERED: Naloxone 0.4mg/ml Inj IVP PRN (09:45)
[2018-09-25] MEDS ORDERED: PCA HYDROmorphone 1mg/ml 30 ML IV PRN (09:45)
[2018-09-25] MEDS ORDERED: Rate Change PCA 1 Each MISC PRN (09:45)
--- NOTE | 2018-09-25 09:45 | Brief Operative Note ---
Immediate Post Operative Note Operative Note Pre-op Diagnosis: malfunctioning Kock Pouch continent ileostomy Procedure: laparotomy with revision of Kock Pouch, lysis of adhesions Post-op Diagnosis: same Post-op Diagnosis: same as pre-op Findings: consistent w/pre-op dx studies Surgeon: yady Baggage Handler: castro Anesthesiologist: ector Anesthesia: general Specimen: none Complications: none Condition: stable Fluids: see anesthesia record Estimated Blood Loss: minimal Drains: other Implant(s) used?: No Vishnu Cuevas MD Sep 25, 2018 09:45
[2018-09-25] MEDS ORDERED: PCA HYDROmorphone 1mg/ml 30 ML IV ONE (09:46)
--- NOTE | 2018-09-25 09:48 | Immediate Post-Op Evaluation ---
Immediate Post-Op Evalulation Immediate Post-Op Evalulation Procedure: Exploratory laparotomy, revision of continent pouch Date of Evaluation: Sep 25, 2018 Time of Evaluation: 09:46 IV Fluids: 700 Blood Products: Albumin 250 Estimated Blood Loss: <50 Urinary Output: 150 Blood Pressure Systolic: 126 Blood Pressure Diastolic: 58 Pulse Rate: 76 Respiratory Rate: 20 O2 Sat by Pulse Oximetry: 99 Temperature (Fahrenheit): 97.5 Pain Score (1-10): 2 Nausea: No Vomiting: No Complications none Patient Status: awake, extubated, none Hydration Status: adequate Uday Shepard MD Sep 25, 2018 09:48
[2018-09-25] MEDS ORDERED: PCA Education Pamphlet MISC ONE (11:00)
[2018-09-25] MEDS: D5 1/4NS w/KCl 20mEq 1,000 ML IV SCH ×2 (11:57→23:22)
--- NOTE | 2018-09-25 15:00 | Operative Note - Dictated ---
DATE OF OPERATION: 09/25/2018 SURGEON: Vishnu Cuevas M.D. FIRE SUPERVISOR: Francisco Martinez MD ANESTHESIA: General PREOPERATIVE DIAGNOSES: 1. 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 2. History of ulcerative colitis. 3. Status post multiple abdominal operations. 3.1. Proctocolectomy and Kock pouch 1984. 3.2. Revision of Kock pouch valve 1985. 3.3. Revision of Kock pouch stoma stricture 2007. 3.4. Revision of Kock pouch stoma and access segment in depth 09/25/2016 3.5. Laparotomy with creation of a new valve and stoma with preservation of the Kock pouch and relocation of the stoma to the left lower quadrant 2016 POSTOPERATIVE DIAGNOSES: 1. Malfunctioning Kock pouch continent ileostomy with partially slipped valve 2. History of ulcerative colitis. 3. Status post multiple abdominal operations. 3.1. Proctocolectomy and Kock pouch 1984. 3.2. Revision of Kock pouch valve 1985. 3.3. Revision of Kock pouch stoma stricture 2007. 3.4. Revision of Kock pouch stoma and access segment in depth 09/25/2016. 3.5. Laparotomy with creation of a new valve and stoma with preservation of the Kock pouch and relocation of the stoma to the left lower quadrant 10/13/2016. OPERATION PERFORMED: Laparotomy with revision of Kock pouch and lysis of small bowel adhesions. DESCRIPTION OF PROCEDURE: The patient was taken to the operating room and under general anesthesia with sequential compression device stockings in place and Brock catheter in place and having received intravenous antibiotics and preoperative subcutaneous heparin, the patient was prepped and draped in the usual fashion. Prior to draping, I did a digital vaginal exam to assess the posterior perineum because the patient is having severe pelvic-perineal pain with phantom rectum symptoms. The tissues posterior were all soft except at the 5 o'clock position where there was some induration. After the patient was prepped and draped in usual fashion and the stoma in the left lower quadrant was sealed with a Tegaderm, previous midline incision was reopened from umbilicus to pubis. There were minimal adhesions to the anterior abdominal wall and minimal intra-abdominal adhesions. The pouch was readily elevated out of the pelvis. There were some dilated segments of small bowel as well as decompressed segments, so I extended the incision above the umbilicus and inspected the entire small bowel from ligament of Treitz to the pouch and released adhesions in several areas. The 28-Slovak Brock catheter was placed through the stoma into the pouch with some manipulation well into the apex of the pouch. The afferent bowel was readily identified and manually occluded. The pouch was distended with 500 mL of saline. Upon removing the catheter, there was only slight incontinence. The catheter was reintroduced and the pouch decompressed. Between 3-0 silk stay sutures along the previous pouch suture line, a pouch enterotomy was created. The nipple valve was inspected and appeared as it did in the preoperative pouch endoscopy somewhat shortened. It was grasped with Kaylen clamps and readily reformed to measure 5.5 cm in length. Using the PI 55 stapling device with 4.8 mm emil, 1 row was placed 90 degrees away from the mesentery. Then I made a small pouch enterotomy and inserted the PI 55 stapling device through the pouch enterotomy into the lumen of the nipple valve and stapled the valve to the anterior pouch wall. The 28-Slovak Brock then readily went in and out of the pouch without any restriction. The small enterotomy was closed with continuous locking 2-0 chromic followed by imbricating 3-0 silk. The primary pouch enterotomy was closed with continuous locking 2-0 chromic followed by imbricating 3-0 silk. Now, the 28-Slovak Brock catheter was again placed into the apex of the pouch and the afferent bowel manually occluded. The pouch was again distended with 500 mL of saline. There was no extravasation and upon removing the catheter, there was no incontinence. The catheter was reintroduced and the pouch decompressed. Uterus, tubes, and ovaries were normal for age. I elevated all of the bowel loops out of the pelvis where they were not adherent. Then, the pouch lay nicely down into the pelvis and the 28-Slovak Brock readily went in and out of the pouch. It was positioned in the apex and sutured to the skin with two sutures of 2-0 silk. The catheter was flushed and connected to a gravity drainage bag. The bowel loops were all replaced anatomically. I did not feel catheter gastrostomy was required. The incision was closed in one layer with continuous looped #1 PDS. Antibiotic-soaked laps had been used to protect the abdominal wall and additional antibiotic irrigation utilized. The skin was closed with emil. Dry sterile dressings were applied. Final sponge and needle counts were correct. The patient tolerated the procedure well, left the operating room in stable condition. Vishnu Cuevas M.D. DR: BIBIANA JOB#: [id number] CC: MATT
--- NOTE | 2018-09-25 16:25 | Cardiology Report ---
APPROVED REPORT EKG Measurement Heart [id number] KS [id number] Normal sinus rhythm Nonspecific ST and T wave abnormality Abnormal ECG
[2018-09-25] MEDS: PCA shift volume MISC SCH (19:00)
[2018-09-25] MEDS: Dyna-Hex 2% Top Sol 2oz TOPIC SCH (20:08)
[2018-09-25] MEDS ORDERED: LORazepam 1mg tab SL PRN (21:00)
[2018-09-25] MEDS: LORazepam 1mg tab SL PRN (21:02)
[2018-09-26] VITALS: BP 132/70
[2018-09-26 04:00] VITALS: BP 122/72
[2018-09-26] MEDS: Ampicillin/Sulbactam Sod 3 GM in NS 110 ML IV SCH ×3 (05:21→18:11)
[2018-09-26] MEDS: Clindamycin 600mg 50 ML IV SCH ×3 (05:21→18:11)
[2018-09-26] MEDS: PCA shift volume MISC SCH ×2 (07:09→19:00)
[2018-09-26 07:21] LABS: BASOPHILS % (AUTO) 0.8 % (0.0-2.0); EOSINOPHILS % (AUTO) 0.4 % (0.0-3.0); HEMATOCRIT 39.6 % (37.0-47.0); HEMOGLOBIN 13.1 G/DL (12.0-16.0); LYMPHOCYTES % (AUTO) 6.5 % (20.0-45.0); MEAN CORPUSCULAR VOLUME 89 FL (80-99); MONOCYTES % (AUTO) 8.1 % (1.0-10.0); NEUTROPHILS % (AUTO) 84.2 % (45.0-75.0); PLATELET COUNT 174 K/UL (150-450); RED BLOOD COUNT 4.43 M/UL (4.20-5.40); RED CELL DISTRIBUTION WIDTH 14.1 % (11.6-14.8); WHITE BLOOD COUNT 10.2 K/UL (4.8-10.8)
[2018-09-26 07:44] LABS: ANION GAP 8 mmol/L (5-15); BLOOD UREA NITROGEN 5 mg/dL (7-18); CALCIUM 8.4 MG/DL (8.5-10.1); CARBON DIOXIDE 27 MMOL/L (21-32); CHLORIDE 102 MMOL/L (98-107); CREATININE 0.7 MG/DL (0.55-1.30); POTASSIUM 3.7 MMOL/L (3.5-5.1); SODIUM 137 MMOL/L (136-145)
[2018-09-26 08:00] VITALS: BP 125/72
--- NOTE | 2018-09-26 08:40 | General Progress Note ---
Progress Note Progress Note AVSS c/o pain and confusion at times. c/o bloating chest clear with decreased expansion cor reg rhythm Abdomen mild soft distention, incision clean, stoma pink 12 hours overnight: urine 800 BCIR ileo - nil WBC 10,200 Hgb 13.1 (was 14.5 pre-op) BMP - wnl Imp. Ileus Atelectasis Plan: d/c basal continuous infusion of FIELD NATURALIST dilaudid add Toradol IV prn - 8 doses maximum f/u labs NPO mobilize as tolerated Vishnu Cuevas MD Sep 26, 2018 08:40
[2018-09-26] MEDS ORDERED: PCA HYDROmorphone 1mg/ml 30 ML IV PRN (08:45)
[2018-09-26] MEDS ORDERED: Ketorolac 30mg Inj IV SCH (08:45)
[2018-09-26] MEDS ORDERED: Rate Change PCA 1 Each MISC PRN (08:45)
[2018-09-26] MEDS ORDERED: Naloxone 0.4mg/ml Inj IVP PRN (08:45)
[2018-09-26] MEDS: D5 1/4NS w/KCl 20mEq 1,000 ML IV SCH ×2 (09:27→20:55)
[2018-09-26] MEDS: DiphenhydrAMINE 50mg/ml Inj IVP PRN (11:04)
--- NOTE | 2018-09-26 11:06 | 48 Hour Post Anesthesia Eval ---
Post Anesthesia Evaluation Procedure: Exploratory laparotomy, revision of continent pouch Date of Evaluation: Sep 26, 2018 Time of Evaluation: 11:05 Blood Pressure Systolic: 132 0: 76 Pulse Rate: 64 Respiratory Rate: 20 Temperature (Fahrenheit): 97.6 O2 Sat by Pulse Oximetry: 98 Airway: patent Nausea: No Vomiting: No Pain Intensity: 3 Hydration Status: adequate Cardiopulmonary Status: stable Mental Status/LOC: patient returned to baseline Follow-up Care/Observations: n/a Post-Anesthesia Complications: none Follow-up care needed: N/A Uday Shepard MD Sep 26, 2018 11:06
[2018-09-26 12:00] VITALS: BP 144/70
[2018-09-26 16:00] VITALS: BP 116/69
[2018-09-26] MEDS ORDERED: SUMAtriptan 6mg/0.5ml Inj SUBQ SCH (16:00)
[2018-09-26 20:00] VITALS: BP 121/68
[2018-09-26] MEDS: LORazepam 1mg tab SL PRN (20:55)
[2018-09-26] MEDS: Dyna-Hex 2% Top Sol 2oz TOPIC SCH (20:55)
[2018-09-26] MEDS: Ketorolac 30mg Inj IV PRN (21:08)
[2018-09-26] MEDS: SUMAtriptan 100mg tab ORAL PRN (23:57)
[2018-09-27] VITALS: BP 141/68
[2018-09-27] MEDS: Clindamycin 600mg 50 ML IV SCH ×5 (00:20→23:47)
[2018-09-27] MEDS: Ampicillin/Sulbactam Sod 3 GM in NS 110 ML IV SCH ×5 (00:20→23:47)
[2018-09-27 04:00] VITALS: BP 132/84
[2018-09-27 05:41] LABS: EOSINOPHILS % (AUTO) 2.4 % (0.0-3.0); HEMATOCRIT 35.3 % (37.0-47.0); HEMOGLOBIN 11.8 G/DL (12.0-16.0); MEAN CORPUSCULAR VOLUME 89 FL (80-99); MONOCYTES % (AUTO) 9.5 % (1.0-10.0); NEUTROPHILS % (AUTO) 73.1 % (45.0-75.0); PLATELET COUNT 138 K/UL (150-450); RED BLOOD COUNT 3.97 M/UL (4.20-5.40); RED CELL DISTRIBUTION WIDTH 13.9 % (11.6-14.8); WHITE BLOOD COUNT 8.1 K/UL (4.8-10.8)
[2018-09-27 05:51] LABS: ANION GAP 5 mmol/L (5-15); BLOOD UREA NITROGEN 6 mg/dL (7-18); CALCIUM 8.7 MG/DL (8.5-10.1); CARBON DIOXIDE 28 MMOL/L (21-32); CHLORIDE 106 MMOL/L (98-107); CREATININE 0.6 MG/DL (0.55-1.30); POTASSIUM 3.6 MMOL/L (3.5-5.1); SODIUM 139 MMOL/L (136-145)
[2018-09-27] MEDS: D5 1/4NS w/KCl 20mEq 1,000 ML IV SCH ×2 (06:33→17:53)
[2018-09-27] MEDS: PCA shift volume MISC SCH ×2 (07:00→19:00)
[2018-09-27] MEDS: LORazepam 1mg tab SL PRN ×2 (07:38→20:22)
[2018-09-27 08:00] VITALS: BP 127/71
[2018-09-27] MEDS ORDERED: Rate Change PCA 1 Each MISC PRN (09:15)
--- NOTE | 2018-09-27 09:26 | General Progress Note ---
Progress Note Progress Note AVSS still c/o persistent headache (front of face/forehead) and c/o posterior neck pain a recurring problem treated by chiropractor. Abdomen soft, mildly distended, incision clean Urine 2750 Kock pouch ileo - neg. - catheter manipulated and flushed with small amount enteric fluid obtained - in good position WBC 8100 Hgb 11.8 (down) Platelets 138,000 BMP - wnl Imp: Ileus Headache (present day of admission pre-op) and posterior neck pain Plan: continue npo Physical Therapy eval re neck pain f/u labs continue Brock (pelvic dissection) Vishnu Cuevas MD Sep 27, 2018 09:26
[2018-09-27] MEDS ORDERED: PCA HYDROmorphone 1mg/ml 30 ML IV PRN (09:30)
[2018-09-27] MEDS ORDERED: Naloxone 0.4mg/ml Inj IVP PRN (09:30)
[2018-09-27 12:00] VITALS: BP 119/84
[2018-09-27] MEDS ORDERED: Hyoscyamine 0.125mg tab ORAL PRN (14:45)
[2018-09-27 16:00] VITALS: BP 149/81
[2018-09-27] MEDS: Hyoscyamine 0.125mg tab ORAL PRN ×2 (16:16→20:22)
[2018-09-27 20:00] VITALS: BP 126/79
[2018-09-27] MEDS: Dyna-Hex 2% Top Sol 2oz TOPIC SCH (20:22)
[2018-09-27] MEDS: Ketorolac 30mg Inj IV PRN (20:50)
[2018-09-28] VITALS: BP 129/86
[2018-09-28] MEDS: D5 1/4NS w/KCl 20mEq 1,000 ML IV SCH ×3 (00:30→16:47)
[2018-09-28 04:00] VITALS: BP 140/82
[2018-09-28] MEDS: Hyoscyamine 0.125mg tab ORAL PRN ×2 (05:43→11:58)
[2018-09-28] MEDS: Clindamycin 600mg 50 ML IV SCH ×4 (05:43→23:55)
[2018-09-28] MEDS: Ampicillin/Sulbactam Sod 3 GM in NS 110 ML IV SCH ×4 (05:43→23:55)
[2018-09-28 05:48] LABS: BASOPHILS % (AUTO) 1.3 % (0.0-2.0); EOSINOPHILS % (AUTO) 3.7 % (0.0-3.0); HEMATOCRIT 35.4 % (37.0-47.0); LYMPHOCYTES % (AUTO) 13.2 % (20.0-45.0); MEAN CORPUSCULAR VOLUME 88 FL (80-99); MONOCYTES % (AUTO) 9.1 % (1.0-10.0); NEUTROPHILS % (AUTO) 72.7 % (45.0-75.0); PLATELET COUNT 161 K/UL (150-450); RED BLOOD COUNT 4.03 M/UL (4.20-5.40); RED CELL DISTRIBUTION WIDTH 13.6 % (11.6-14.8); WHITE BLOOD COUNT 7.3 K/UL (4.8-10.8)
[2018-09-28 05:59] LABS: ANION GAP 7 mmol/L (5-15); BLOOD UREA NITROGEN 5 mg/dL (7-18); CARBON DIOXIDE 27 MMOL/L (21-32); CHLORIDE 105 MMOL/L (98-107); CREATININE 0.6 MG/DL (0.55-1.30); POTASSIUM 3.8 MMOL/L (3.5-5.1); SODIUM 139 MMOL/L (136-145)
[2018-09-28] MEDS: LORazepam 1mg tab SL PRN (06:13)
[2018-09-28 06:43] LABS: IRON 28 ug/dL (50-175)
[2018-09-28] MEDS: PCA shift volume MISC SCH ×2 (07:25→19:30)
[2018-09-28 08:00] VITALS: BP 132/80
[2018-09-28] MEDS ORDERED: Naloxone 0.4mg/ml Inj IVP PRN (08:21)
[2018-09-28] MEDS ORDERED: Rate Change PCA 1 Each MISC PRN (08:30)
[2018-09-28] MEDS ORDERED: PCA HYDROmorphone 1mg/ml 30 ML IV PRN (08:30)
--- NOTE | 2018-09-28 08:30 | General Progress Note ---
Progress Note Progress Note AVSS continues to c/o severe frontal headache and bloating Abdomen mildly distended, incision clean, stoma stable Urine 4500 BCIR ileo only 15cc enteric WBC 7300 Hgb 12 stable BMP-wnl Iron 28 B12 291 Folate ok Imp. Ileus Severe persistent headache present pre-op on admission Plan: STAT CT scan of head continue vitale, npo Venofer daily B12 1mg IM Vishnu Cuevas MD Sep 28, 2018 08:30
[2018-09-28] MEDS ORDERED: Vitamin B12 1000mcg/ml Inj IM SCH (10:00)
--- NOTE | 2018-09-28 11:19 | Diagnostic Imaging Report ---
EXAM: CT Head Without Intravenous Contrast CLINICAL HISTORY: H/A TECHNIQUE: Axial computed tomography images of the head/brain without intravenous contrast. CTDI is 70.38 mGy and DLP is 1389 mGy-cm. One or more of the following dose reduction techniques were used: automated exposure control, adjustment of the mA and/or kV according to patient size, use of iterative reconstruction technique. COMPARISON: No relevant prior studies available. FINDINGS: Brain: Unremarkable. No hemorrhage. No significant white matter disease. No edema. Ventricles: Unremarkable. No ventriculomegaly. Bones/joints: Unremarkable. No acute fracture. Soft tissues: Unremarkable. Sinuses: Unremarkable as visualized. No acute sinusitis. Mastoid air cells: Unremarkable as visualized. No mastoid effusion. IMPRESSION: Unremarkable head/brain CT.
[2018-09-28] MEDS: Ketorolac 30mg Inj IV PRN (11:59)
[2018-09-28 12:00] VITALS: BP 150/86
[2018-09-28] MEDS ORDERED: Tubing IV Secondary IV ONE (14:47)
[2018-09-28] MEDS ORDERED: NS 500ML ONE ×2 (14:47→19:55)
[2018-09-28] MEDS ORDERED: NS Irrig 1000ml ONE ×2 (14:47→19:55)
[2018-09-28] MEDS: SUMAtriptan 100mg tab ORAL PRN (15:25)
[2018-09-28 16:00] VITALS: BP 142/87
[2018-09-28 20:00] VITALS: BP 142/74
[2018-09-28] MEDS: Dyna-Hex 2% Top Sol 2oz TOPIC SCH (21:03)
[2018-09-28] MEDS: Iron Sucrose 100 MG in NS 55 ML IV SCH (21:03)
[2018-09-29] VITALS: BP 130/87
[2018-09-29 04:00] VITALS: BP 144/87
[2018-09-29] MEDS: D5 1/4NS w/KCl 20mEq 1,000 ML IV SCH ×3 (04:02→23:16)
[2018-09-29 04:50] LABS: BASOPHILS % (AUTO) 1.4 % (0.0-2.0); EOSINOPHILS % (AUTO) 5.1 % (0.0-3.0); HEMATOCRIT 34.5 % (37.0-47.0); HEMOGLOBIN 11.9 G/DL (12.0-16.0); LYMPHOCYTES % (AUTO) 17.5 % (20.0-45.0); MEAN CORPUSCULAR VOLUME 87 FL (80-99); PLATELET COUNT 163 K/UL (150-450); RED BLOOD COUNT 3.97 M/UL (4.20-5.40); RED CELL DISTRIBUTION WIDTH 13.4 % (11.6-14.8); WHITE BLOOD COUNT 6.5 K/UL (4.8-10.8)
[2018-09-29 05:10] LABS: ANION GAP 7 mmol/L (5-15); BLOOD UREA NITROGEN 5 mg/dL (7-18); CALCIUM 8.8 MG/DL (8.5-10.1); CARBON DIOXIDE 27 MMOL/L (21-32); CHLORIDE 105 MMOL/L (98-107); CREATININE 0.7 MG/DL (0.55-1.30); POTASSIUM 3.6 MMOL/L (3.5-5.1); SODIUM 139 MMOL/L (136-145)
[2018-09-29] MEDS: Ampicillin/Sulbactam Sod 3 GM in NS 110 ML IV SCH (05:47)
[2018-09-29] MEDS: Clindamycin 600mg 50 ML IV SCH (05:47)
[2018-09-29] MEDS: PCA shift volume MISC SCH ×2 (07:24→19:21)
[2018-09-29 08:00] VITALS: BP 135/83
[2018-09-29] MEDS ORDERED: Naloxone 0.4mg/ml Inj IVP PRN (09:19)
[2018-09-29] MEDS ORDERED: PCA HYDROmorphone 1mg/ml 30 ML IV PRN (09:30)
[2018-09-29] MEDS ORDERED: Rate Change PCA 1 Each MISC PRN (09:30)
--- NOTE | 2018-09-29 09:33 | General Progress Note ---
Progress Note Progress Note AVSS CT scan of head negative. Headache has resolved. No sinus pathology ( history of sinus surgery recent past) Abdomen soft, still mildly distended, healing nicely Urine 3025 Kock pouch 140 enteric CBC and BMP all stable/satisfactory Imp. Slowly resolving ileus Plan: NPO d/c antibiotics and remove urinary Brock catheter Vishnu Cuevas MD Sep 29, 2018 09:33
[2018-09-29 12:00] VITALS: BP 144/78
[2018-09-29 16:00] VITALS: BP 136/78
[2018-09-29] MEDS: SUMAtriptan 100mg tab ORAL PRN (16:28)
[2018-09-29] MEDS ORDERED: NS 500ML ONE (17:05)
[2018-09-29] MEDS ORDERED: NS Irrig 1000ml ONE (17:05)
[2018-09-29 20:00] VITALS: BP 128/85
[2018-09-29] MEDS: Iron Sucrose 100 MG in NS 55 ML IV SCH (20:26)
[2018-09-29] MEDS: Dyna-Hex 2% Top Sol 2oz TOPIC SCH (20:27)
[2018-09-30] VITALS: BP 135/80
[2018-09-30] MEDS: Hyoscyamine 0.125mg tab ORAL PRN (01:57)
[2018-09-30] MEDS: LORazepam 1mg tab SL PRN (01:57)
[2018-09-30 04:00] VITALS: BP 121/81
[2018-09-30] MEDS: NovoLOG Insulin Flexpen SUBQ SCH ×4 (06:00→18:00)
[2018-09-30] MEDS: PCA shift volume MISC SCH ×2 (07:24→19:20)
[2018-09-30 08:00] VITALS: BP 133/81
[2018-09-30] MEDS: D5 1/4NS w/KCl 20mEq 1,000 ML IV SCH ×4 (08:05→20:20)
--- NOTE | 2018-09-30 08:47 | General Progress Note ---
Progress Note Progress Note AVSS Still with some cramping and gas with not much BCIR ileostomy output. Had burning with urination that resolved Abdomen soft, mildly distended, incision clean Urine 3700 BCIR ileo 90 Imp. Persistent ileus Plan: 2 view abd. XRay STAT f/u labs Vishnu Cuevas MD Sep 30, 2018 08:47
[2018-09-30] MEDS ORDERED: Naloxone 0.4mg/ml Inj IVP PRN (08:48)
[2018-09-30] MEDS ORDERED: Rate Change PCA 1 Each MISC PRN (09:00)
[2018-09-30] MEDS ORDERED: PCA HYDROmorphone 1mg/ml 30 ML IV PRN (09:30)
--- NOTE | 2018-09-30 11:54 | Diagnostic Imaging Report ---
Indication: Abdominal pain, distention Technique: XRAY Abdomen 2v Comparison: 10/21/2016 Findings: Midline skin emil are noted. Surgical suture anterior noted within the pelvis. There is a left lower quadrant ileostomy catheter. There is distention of multiple small bowel loops some with air-fluid levels. Some loops measure up to 3.8 cm in diameter. No evidence of free intraperitoneal air on standing views. There are degenerative changes of the spine. No acute osseous normality. Imaged lower lungs are grossly clear. Portions of a central venous catheter are partially visualized. IMPRESSION: Evidence of abdominal surgery with midline emil, surgical material in the pelvis with a left lower quadrant likely ileostomy catheter. Distention of multiple small bowel loops, most pronounced in the right upper quadrant. Findings are concerning for postoperative ileus or partial small bowel obstruction. Correlation with clinical findings/ileostomy output and follow-up exam recommended.
[2018-09-30 12:00] VITALS: BP 139/75
[2018-09-30] MEDS: SUMAtriptan 100mg tab ORAL PRN (12:25)
[2018-09-30 16:00] VITALS: BP 124/79
[2018-09-30 20:00] VITALS: BP 133/87
[2018-09-30] MEDS ORDERED: Dextrose 10% 1,000 ML IV PRN (20:00)
[2018-09-30] MEDS: Iron Sucrose 100 MG in NS 55 ML IV SCH (20:19)
[2018-09-30] MEDS: Ketorolac 30mg Inj IV PRN (20:19)
[2018-09-30] MEDS: Dyna-Hex 2% Top Sol 2oz TOPIC SCH (20:19)
[2018-09-30] MEDS: TPN IV SCH (20:21)
[2018-09-30] MEDS: FAT EMULSION 20% IV SCH (20:21)
[2018-09-30] MEDS ORDERED: Fat Emulsion Iv 20% 250 ML IV SCH (21:00)
[2018-09-30] MEDS: DiphenhydrAMINE 50mg/ml Inj IVP PRN (22:31)
[2018-10-01 00:18] VITALS: BP 131/81
[2018-10-01 04:03] VITALS: BP 155/69
[2018-10-01 05:25] LABS: BASOPHILS % (AUTO) 1.3 % (0.0-2.0); EOSINOPHILS % (AUTO) 3.4 % (0.0-3.0); HEMATOCRIT 38.4 % (37.0-47.0); LYMPHOCYTES % (AUTO) 15.9 % (20.0-45.0); MEAN CORPUSCULAR VOLUME 88 FL (80-99); MONOCYTES % (AUTO) 9.1 % (1.0-10.0); NEUTROPHILS % (AUTO) 70.3 % (45.0-75.0); PLATELET COUNT 223 K/UL (150-450); RED BLOOD COUNT 4.38 M/UL (4.20-5.40); RED CELL DISTRIBUTION WIDTH 13.1 % (11.6-14.8); WHITE BLOOD COUNT 6.7 K/UL (4.8-10.8)
[2018-10-01] MEDS: NovoLOG Insulin Flexpen SUBQ SCH ×4 (05:39→18:05)
[2018-10-01 06:41] LABS: ALANINE AMINOTRANSFERASE 14 U/L (12-78); ALBUMIN 2.9 G/DL (3.4-5.0); ALBUMIN/GLOBULIN RATIO 0.8 (1.0-2.7); ALKALINE PHOSPHATASE 48 U/L (46-116); ANION GAP 10 mmol/L (5-15); ASPARTATE AMINO TRANSFERASE 13 U/L (15-37); BILIRUBIN,TOTAL 0.5 MG/DL (0.2-1.0); BLOOD UREA NITROGEN 12 mg/dL (7-18); CALCIUM 8.7 MG/DL (8.5-10.1); CARBON DIOXIDE 27 MMOL/L (21-32); CHLORIDE 102 MMOL/L (98-107); CREATININE 0.7 MG/DL (0.55-1.30); POTASSIUM 3.7 MMOL/L (3.5-5.1); SODIUM 139 MMOL/L (136-145)
[2018-10-01] MEDS: PCA shift volume MISC SCH ×2 (07:28→19:41)
[2018-10-01 08:00] VITALS: BP 145/80
[2018-10-01] MEDS ORDERED: Naloxone 0.4mg/ml Inj IVP PRN (08:23)
[2018-10-01] MEDS ORDERED: Rate Change PCA 1 Each MISC PRN (08:30)
--- NOTE | 2018-10-01 08:37 | General Progress Note ---
Progress Note Progress Note AVSS Having intermittent severe cramping and gas pains. denies nausea or emesis abdomen unchanged mild soft distention, incision clean urine 2050 Kock pouch ileo 250 WBC 6700 Hgb 13 CMP okay ecept albumin 2.9 Imp: Ileus vs partial small bowel obstruction Plan: continue NPO and TPN may need CT scan abd+pelvis unless ileostomy output increases in volume significantly B12 1000mcg IM x 1 (second dose) f/u labs Vishnu Cuevas MD Oct 01, 2018 08:37
[2018-10-01] MEDS ORDERED: PCA HYDROmorphone 1mg/ml 30 ML IV PRN (09:00)
[2018-10-01] MEDS ORDERED: Vitamin B12 1000mcg/ml Inj IM SCH (09:00)
[2018-10-01 12:00] VITALS: BP 141/83
--- NOTE | 2018-10-01 14:12 | Diagnostic Imaging Report ---
Indication: Abdominal pain, abdominal distention, intermittent severe cramping and gas pains, status post continent ileostomy pouch revision 6 days earlier Technique: Spiral acquisitions obtained through the abdomen and pelvis. No oral contrast utilized, per emergency room physician request No IV contrast utilized, per referring physician request.. Multiplanar reconstructions were generated. Total dose length product 566.23 mGycm. CTDIvol(s) 11.36 mGy. Dose reduction achieved using automated exposure control Comparison: 09/11/2016 Findings: Continent ileostomy now seen in the left lower quadrant, previously in the right lower quadrant. This contains a catheter. There is a midline surgical staple line and some edema along the incision. Small bowel loops are mildly distended. Contrast is seen filling most but not all of the small bowel. The contrast column views in the right lower quadrant, where there is a tapering of the small bowel. However, small bowel loops distal to the point of tapering remain mildly distended and gas-filled. Liquid and semisolid material is seen within the small bowel proximal to the pouch, which is mildly distended. A few gas bubbles are seen in the peritoneal space, consistent with recent surgery. There is some fluid occupying the peritoneal space in the pelvis. No other fluid collections or loculated fluid collections are evident. The colon is surgically absent. A duodenal diverticulum is again noted. Lack of IV contrast limits assessment of the solid organs. The liver is grossly unremarkable. The gallbladder is mildly distended, contains a small amount of contrast, presumably vicariously excreted. The bile ducts, pancreas, spleen, adrenals, kidneys are grossly unremarkable. No retroperitoneal or mesenteric mass or adenopathy. Normal uterus and adnexal structures. No pelvic mass or adenopathy. The included lung bases are clear. Impression: Postsurgical changes, as described, status post revision of continent ileostomy Somewhat slow forward of ingested contrast, which does not reach the ileostomy pouch. There is mild distention of proximal small bowel loops in the possible right lower quadrant transition point. However, loops distal to this apparent transition point are also gas-filled mildly distended. Findings most likely represent postoperative ileus. However, partial/mild small bowel obstruction either at the level of the mid small bowel or at the level of the pouch is not completely excludable. Follow-up radiographs may be useful to assess further for transit of contrast Small amount of free fluid within the pelvis, most likely postoperative in nature Other findings as noted The CT scanner at [facility] is accredited by the [employer] and the scans are performed using protocols designed to limit radiation exposure to as low as reasonably achievable to attain images of sufficient resolution adequate for diagnostic evaluation.
[2018-10-01] MEDS ORDERED: NS Irrig 1000ml ONE (14:36)
[2018-10-01] MEDS: LORazepam 1mg tab SL PRN ×2 (15:43→21:29)
[2018-10-01 16:00] VITALS: BP 132/78
[2018-10-01] MEDS: Dyna-Hex 2% Top Sol 2oz TOPIC SCH (20:34)
[2018-10-01] MEDS: Iron Sucrose 100 MG in NS 55 ML IV SCH (20:34)
[2018-10-01] MEDS: D5 1/4NS w/KCl 20mEq 1,000 ML IV SCH (20:34)
[2018-10-01] MEDS: TPN IV SCH (20:35)
[2018-10-01] MEDS: FAT EMULSION 20% IV SCH (20:35)
[2018-10-01 20:44] VITALS: BP 122/77
[2018-10-02 00:28] VITALS: BP 134/80
[2018-10-02] MEDS: NovoLOG Insulin Flexpen SUBQ SCH ×4 (00:30→17:57)
[2018-10-02 04:29] VITALS: BP 113/82
[2018-10-02 05:56] LABS: ANION GAP 10 mmol/L (5-15); BLOOD UREA NITROGEN 22 mg/dL (7-18); CALCIUM 8.7 MG/DL (8.5-10.1); CARBON DIOXIDE 25 MMOL/L (21-32); CHLORIDE 101 MMOL/L (98-107); CREATININE 0.8 MG/DL (0.55-1.30); POTASSIUM 3.8 MMOL/L (3.5-5.1); SODIUM 136 MMOL/L (136-145)
[2018-10-02 06:01] LABS: BASOPHILS % (AUTO) 0.8 % (0.0-2.0); EOSINOPHILS % (AUTO) 1.5 % (0.0-3.0); HEMATOCRIT 38.8 % (37.0-47.0); HEMOGLOBIN 13.3 G/DL (12.0-16.0); LYMPHOCYTES % (AUTO) 4.4 % (20.0-45.0); MEAN CORPUSCULAR VOLUME 88 FL (80-99); MONOCYTES % (AUTO) 9.2 % (1.0-10.0); NEUTROPHILS % (AUTO) 84.1 % (45.0-75.0); PLATELET COUNT 233 K/UL (150-450); RED BLOOD COUNT 4.41 M/UL (4.20-5.40); RED CELL DISTRIBUTION WIDTH 13.5 % (11.6-14.8); WHITE BLOOD COUNT 8.5 K/UL (4.8-10.8)
[2018-10-02] MEDS: PCA shift volume MISC SCH ×2 (07:25→19:00)
[2018-10-02] MEDS ORDERED: AZELASTINE137 MCG/0. NS (07:48)
[2018-10-02 08:00] VITALS: BP 98/67
[2018-10-02] MEDS ORDERED: FLONASE ALLERG9.9 ML NS (08:53)
[2018-10-02] MEDS: Flonase Nasal Inhaler 16gm NASAL SCH (10:29)
[2018-10-02] MEDS: Hyoscyamine 0.125mg tab ORAL PRN ×3 (10:29→20:17)
[2018-10-02] MEDS: AZELASTINE NASAL SCH (10:29)
[2018-10-02 12:00] VITALS: BP 105/68
[2018-10-02] MEDS ORDERED: Rate Change PCA 1 Each MISC PRN (12:45)
[2018-10-02] MEDS ORDERED: Naloxone 0.4mg/ml Inj IVP PRN (12:46)
[2018-10-02] MEDS ORDERED: PCA HYDROmorphone 1mg/ml 30 ML IV PRN (12:48)
--- NOTE | 2018-10-02 13:03 | General Progress Note ---
Progress Note Progress Note AVSS Cramping has nearly fully resolved with good volume of ileostomy effluent. Kock pouch catheter came out overnight - reinserted readily Abdomen soft, non-distended, healing nicely Urine 900 Kock pouch ileo 840 (oral contrast from CT scan) CBC and BMP ok except BUN up 22 Cr 0.8 Imp. Ileus resolved Plan: Clear liquid diet continue TPN and change/increase supplemental IV fluids f/u labs Vishnu Cuevas MD Oct 02, 2018 13:03
[2018-10-02 16:00] VITALS: BP 121/70
[2018-10-02] MEDS: LORazepam 1mg tab SL PRN (18:05)
[2018-10-02 20:00] VITALS: BP 109/64
[2018-10-02] MEDS: FAT EMULSION 20% IV SCH (20:17)
[2018-10-02] MEDS: TPN IV SCH (20:17)
[2018-10-02] MEDS: Iron Sucrose 100 MG in NS 55 ML IV SCH (20:17)
[2018-10-02] MEDS: Dyna-Hex 2% Top Sol 2oz TOPIC SCH (20:18)
[2018-10-03] VITALS: BP 118/71
[2018-10-03] MEDS: NovoLOG Insulin Flexpen SUBQ SCH ×4 (00:03→19:43)
[2018-10-03] MEDS: LORazepam 1mg tab SL PRN (03:11)
[2018-10-03 04:00] VITALS: BP 123/70
[2018-10-03 07:09] LABS: ANION GAP 8 mmol/L (5-15); BLOOD UREA NITROGEN 19 mg/dL (7-18); CALCIUM 8.9 MG/DL (8.5-10.1); CARBON DIOXIDE 27 MMOL/L (21-32); CHLORIDE 103 MMOL/L (98-107); CREATININE 0.6 MG/DL (0.55-1.30); POTASSIUM 4.5 MMOL/L (3.5-5.1); SODIUM 138 MMOL/L (136-145)
[2018-10-03] MEDS: PCA shift volume MISC SCH (07:16)
[2018-10-03 07:35] LABS: BASOPHILS % (AUTO) 1.2 % (0.0-2.0); EOSINOPHILS % (AUTO) 3.6 % (0.0-3.0); HEMATOCRIT 37.1 % (37.0-47.0); HEMOGLOBIN 12.7 G/DL (12.0-16.0); LYMPHOCYTES % (AUTO) 11.8 % (20.0-45.0); MEAN CORPUSCULAR VOLUME 89 FL (80-99); MONOCYTES % (AUTO) 11.7 % (1.0-10.0); NEUTROPHILS % (AUTO) 71.5 % (45.0-75.0); PLATELET COUNT 270 K/UL (150-450); RED BLOOD COUNT 4.16 M/UL (4.20-5.40); RED CELL DISTRIBUTION WIDTH 13.6 % (11.6-14.8); WHITE BLOOD COUNT 6.7 K/UL (4.8-10.8)
[2018-10-03 08:00] VITALS: BP 146/68
--- NOTE | 2018-10-03 08:15 | General Progress Note ---
Progress Note Progress Note AVSS tolerating clear liquids 980cc but still with intermittent cramping. also c/o difficulty voiding abdomen still mildly distended and tympanitic, incision clean urine 1400 BCIR ileo 1165 WBC 6700 Hgb 12.7 BUN down 19 Cr 0.6 Imp. 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
[2018-10-03] MEDS: AZELASTINE NASAL SCH (08:41)
[2018-10-03] MEDS: Flonase Nasal Inhaler 16gm NASAL SCH (08:41)
[2018-10-03 11:00] LABS: APPEARANCE,URINE CLEAR; COLOR,URINE BROWN; GLUCOSE, URINE (UA) NEGATIVE (NEGATIVE); KETONES,URINE NEGATIVE (NEGATIVE); LEUKOCYTE ESTERASE ,URINE 2+ (NEGATIVE); PH,URINE 6 (4.5-8.0); PROTEIN,URINE NEGATIVE (NEGATIVE)
[2018-10-03 11:08] LABS: BILIRUBIN, URINE NEGATIVE (NEGATIVE)
[2018-10-03 11:13] LABS: NITRITE,URINE NEGATIVE (NEGATIVE); UROBILINOGEN,URINE NORMAL MG/DL (0.0-1.0)
[2018-10-03] MEDS: Norco 5mg/325mg tab ORAL PRN ×3 (11:27→21:28)
[2018-10-03 12:00] VITALS: BP 126/75
[2018-10-03] MEDS: Ketorolac 30mg Inj IV PRN ×2 (12:26→18:05)
[2018-10-03 16:00] VITALS: BP 122/78
[2018-10-03] MEDS: Hyoscyamine 0.125mg tab ORAL PRN (17:34)
[2018-10-03 20:00] VITALS: BP 146/83
[2018-10-03] MEDS: Dyna-Hex 2% Top Sol 2oz TOPIC SCH (20:32)
[2018-10-03] MEDS: FAT EMULSION 20% IV SCH (20:36)
[2018-10-03] MEDS: TPN IV SCH (20:36)
[2018-10-04] VITALS: BP 112/71
[2018-10-04] MEDS: Ketorolac 30mg Inj IV PRN ×2 (00:26→06:56)
[2018-10-04] MEDS: NovoLOG Insulin Flexpen SUBQ SCH ×4 (00:27→18:45)
[2018-10-04 04:00] VITALS: BP 109/66
[2018-10-04] MEDS: Norco 5mg/325mg tab ORAL PRN (05:29)
[2018-10-04 08:00] VITALS: BP 140/81
[2018-10-04] MEDS: LORazepam 1mg tab SL PRN ×2 (08:19→19:30)
--- NOTE | 2018-10-04 08:52 | General Progress Note ---
Progress Note Progress Note AVSS Having recurring severe intestinal cramping. Had emesis last evening 300cc. Also with persistent urinary symptoms Abdomen distended, tympanitic Urine 2875 Kock pouch ileo 315 despite 950cc po intake labs - pending Imp: partial small bowel obstruction Plan: NPO again; continue TPN await labs from this AM Vishnu Cueavs MD Oct 04, 2018 08:52
[2018-10-04] MEDS ORDERED: PCA HYDROmorphone 1mg/ml 30 ML IV PRN (09:00)
[2018-10-04] MEDS ORDERED: Naloxone 0.4mg/ml Inj IVP PRN (09:00)
[2018-10-04] MEDS ORDERED: DiphenhydrAMINE 50mg/ml Inj IVP PRN (09:00)
[2018-10-04] MEDS ORDERED: PCA Education Pamphlet MISC ONE (09:00)
[2018-10-04] MEDS ORDERED: Rate Change PCA 1 Each MISC PRN (09:00)
[2018-10-04 09:25] LABS: BASOPHILS % (AUTO) 1.1 % (0.0-2.0); EOSINOPHILS % (AUTO) 1.6 % (0.0-3.0); HEMATOCRIT 40.4 % (37.0-47.0); HEMOGLOBIN 13.5 G/DL (12.0-16.0); LYMPHOCYTES % (AUTO) 11.5 % (20.0-45.0); MEAN CORPUSCULAR VOLUME 89 FL (80-99); MONOCYTES % (AUTO) 8.9 % (1.0-10.0); NEUTROPHILS % (AUTO) 76.9 % (45.0-75.0); PLATELET COUNT 296 K/UL (150-450); RED BLOOD COUNT 4.54 M/UL (4.20-5.40); RED CELL DISTRIBUTION WIDTH 13.3 % (11.6-14.8); WHITE BLOOD COUNT 6.6 K/UL (4.8-10.8)
[2018-10-04 09:48] LABS: ANION GAP 11 mmol/L (5-15); BLOOD UREA NITROGEN 12 mg/dL (7-18); CALCIUM 9.2 MG/DL (8.5-10.1); CARBON DIOXIDE 24 MMOL/L (21-32); CHLORIDE 106 MMOL/L (98-107); CREATININE 0.7 MG/DL (0.55-1.30); POTASSIUM 3.4 MMOL/L (3.5-5.1); SODIUM 141 MMOL/L (136-145)
[2018-10-04 09:52] LABS: ALANINE AMINOTRANSFERASE 130 U/L (12-78); ALBUMIN 3.1 G/DL (3.4-5.0); ALBUMIN/GLOBULIN RATIO 0.8 (1.0-2.7); ALKALINE PHOSPHATASE 110 U/L (46-116); ASPARTATE AMINO TRANSFERASE 102 U/L (15-37); BILIRUBIN,TOTAL 0.6 MG/DL (0.2-1.0); PHOSPHORUS 1.7 MG/DL (2.5-4.9)
[2018-10-04] MEDS: AZELASTINE NASAL SCH (10:13)
[2018-10-04] MEDS: Flonase Nasal Inhaler 16gm NASAL SCH (10:13)
[2018-10-04] MEDS ORDERED: Potassium Phosphate 30 MM in NS 275ml IV ONE (11:30)
[2018-10-04] MEDS: NS w/KCl 40mEq 1,000 ML IV SCH (11:36)
[2018-10-04 12:00] VITALS: BP 119/71
[2018-10-04 16:00] VITALS: BP 128/85
[2018-10-04] MEDS: PCA shift volume MISC SCH (19:00)
[2018-10-04 20:00] VITALS: BP 144/85
[2018-10-04] MEDS: Dyna-Hex 2% Top Sol 2oz TOPIC SCH (20:19)
[2018-10-04] MEDS: TPN IV SCH (20:20)
[2018-10-04] MEDS: FAT EMULSION 20% IV SCH (20:20)
[2018-10-05] VITALS: BP 132/86
[2018-10-05] MEDS: NovoLOG Insulin Flexpen SUBQ SCH ×4 (00:13→18:00)
[2018-10-05] MEDS: LORazepam 1mg tab SL PRN ×4 (00:29→16:00)
[2018-10-05 04:00] VITALS: BP 140/81
[2018-10-05 05:13] LABS: BASOPHILS % (AUTO) 1.3 % (0.0-2.0); EOSINOPHILS % (AUTO) 3.7 % (0.0-3.0); HEMATOCRIT 37.7 % (37.0-47.0); HEMOGLOBIN 12.7 G/DL (12.0-16.0); LYMPHOCYTES % (AUTO) 20.2 % (20.0-45.0); MEAN CORPUSCULAR VOLUME 89 FL (80-99); MONOCYTES % (AUTO) 9.9 % (1.0-10.0); NEUTROPHILS % (AUTO) 64.9 % (45.0-75.0); PLATELET COUNT 304 K/UL (150-450); RED BLOOD COUNT 4.23 M/UL (4.20-5.40); RED CELL DISTRIBUTION WIDTH 13.5 % (11.6-14.8); WHITE BLOOD COUNT 6.7 K/UL (4.8-10.8)
[2018-10-05 05:17] LABS: ANION GAP 5 mmol/L (5-15); BLOOD UREA NITROGEN 12 mg/dL (7-18); CALCIUM 8.9 MG/DL (8.5-10.1); CARBON DIOXIDE 26 MMOL/L (21-32); CHLORIDE 105 MMOL/L (98-107); CREATININE 0.6 MG/DL (0.55-1.30); POTASSIUM 4.6 MMOL/L (3.5-5.1); SODIUM 136 MMOL/L (136-145)
[2018-10-05] MEDS: PCA shift volume MISC SCH ×2 (07:00→19:00)
[2018-10-05] MEDS: NS w/KCl 40mEq 1,000 ML IV SCH (07:41)
[2018-10-05 08:00] VITALS: BP 134/82
[2018-10-05] MEDS ORDERED: Naloxone 0.4mg/ml Inj IVP PRN (08:26)
[2018-10-05] MEDS ORDERED: Rate Change PCA 1 Each MISC PRN (08:30)
--- NOTE | 2018-10-05 08:41 | General Progress Note ---
Progress Note Progress Note AVSS She feels much better with only occasional transient cramping, slept much better Abdomen still distended and tympanitic\ Urine 2500 Kock pouch ileo 330 CBC and BMP all wnl with BUN downj 12 Urine C&S - enterobacter, most sensitive to Cefepime Imp. Early post-operative partial SBO UTI Plan: continue npo and TPN + suppplemental IV fluids d/c Levaquin cefepime 1gm IV q12h Vishnu Cuevas MD Oct 05, 2018 08:41
[2018-10-05] MEDS ORDERED: Fluconazole 100mg tab ORAL SCH (08:44)
[2018-10-05] MEDS ORDERED: DiphenhydrAMINE 50mg/ml Inj IVP PRN (09:00)
[2018-10-05] MEDS ORDERED: PCA HYDROmorphone 1mg/ml 30 ML IV PRN (09:00)
[2018-10-05] MEDS: Cefepime HCl 1 GM in D5W 55 ML IVPB SCH (09:09)
[2018-10-05] MEDS: Flonase Nasal Inhaler 16gm NASAL SCH (09:09)
[2018-10-05] MEDS: AZELASTINE NASAL SCH (09:09)
[2018-10-05 12:00] VITALS: BP 135/77
[2018-10-05 16:00] VITALS: BP 137/82
[2018-10-05 20:00] VITALS: BP 119/78
[2018-10-05] MEDS: TPN IV SCH (20:12)
[2018-10-05] MEDS: FAT EMULSION 20% IV SCH (20:12)
[2018-10-05] MEDS: Dyna-Hex 2% Top Sol 2oz TOPIC SCH (20:12)
[2018-10-05] MEDS ORDERED: Mineral Oil 30ml ud ORAL SCH (20:15)
[2018-10-06] VITALS: BP 125/78
[2018-10-06] MEDS: NS w/KCl 40mEq 1,000 ML IV SCH ×2 (03:31→23:43)
[2018-10-06 04:00] VITALS: BP 113/74
[2018-10-06 04:58] LABS: BASOPHILS % (AUTO) 1.3 % (0.0-2.0); EOSINOPHILS % (AUTO) 3.2 % (0.0-3.0); HEMATOCRIT 38.4 % (37.0-47.0); LYMPHOCYTES % (AUTO) 14.8 % (20.0-45.0); MEAN CORPUSCULAR VOLUME 89 FL (80-99); MONOCYTES % (AUTO) 8.9 % (1.0-10.0); NEUTROPHILS % (AUTO) 71.7 % (45.0-75.0); PLATELET COUNT 346 K/UL (150-450); RED BLOOD COUNT 4.34 M/UL (4.20-5.40); RED CELL DISTRIBUTION WIDTH 13.5 % (11.6-14.8)
[2018-10-06 05:06] LABS: ANION GAP 10 mmol/L (5-15); BLOOD UREA NITROGEN 12 mg/dL (7-18); CARBON DIOXIDE 27 MMOL/L (21-32); CHLORIDE 102 MMOL/L (98-107); CREATININE 0.7 MG/DL (0.55-1.30); PHOSPHORUS 4.1 MG/DL (2.5-4.9); POTASSIUM 4.7 MMOL/L (3.5-5.1); SODIUM 139 MMOL/L (136-145)
[2018-10-06] MEDS: NovoLOG Insulin Flexpen SUBQ SCH ×4 (06:00→17:51)
[2018-10-06] MEDS: LORazepam 1mg tab SL PRN ×3 (06:49→20:43)
[2018-10-06] MEDS: PCA shift volume MISC SCH ×2 (07:00→19:27)
[2018-10-06 08:10] VITALS: BP 134/84
[2018-10-06] MEDS: AZELASTINE NASAL SCH (09:05)
[2018-10-06] MEDS: Flonase Nasal Inhaler 16gm NASAL SCH (09:05)
[2018-10-06] MEDS: Cefepime HCl 1 GM in D5W 55 ML IVPB SCH (09:05)
[2018-10-06] MEDS ORDERED: Naloxone 0.4mg/ml Inj IVP PRN (10:22)
[2018-10-06] MEDS ORDERED: Rate Change PCA 1 Each MISC PRN (10:30)
[2018-10-06] MEDS ORDERED: PCA HYDROmorphone 1mg/ml 30 ML IV PRN (10:30)
[2018-10-06] MEDS ORDERED: DiphenhydrAMINE 50mg/ml Inj IVP PRN (10:30)
[2018-10-06 12:00] VITALS: BP 132/92
--- NOTE | 2018-10-06 15:45 | Progress Note ---
DATE: 10/06/2018 SUBJECTIVE: The patient is afebrile with stable vital signs. She continues to have intermittent significant abdominal cramping and spasms in the left lower quadrant and pelvis and she has continued to have difficulty with urination starting the stream and pain while voiding without burning. She continues on cefepime intravenously for urinary tract infection of Enterobacter, more sensitive to cefepime and feels somewhat better, but has ongoing symptoms. The patient's abdomen remains distended. Incision is clean. There is still very little affluent through her Kock pouch continent ileostomy catheter. Her magnesium is at the low end of normal at 1.9 and will be supplemented. IMPRESSION: 1. Continued signs and symptoms of early postoperative partial small bowel obstruction. 2. Continued urinary symptoms of bladder spasms, difficulty voiding. PLAN: If there is no significant improvement in next 24 hours, the patient will need to undergo followup CT scan of abdomen and pelvis with oral and IV contrast and will be seen in consultation by Urology. Vishnu Cuevas M.D. DR: Christina JOB#: [id number] CC:
[2018-10-06 16:19] VITALS: BP 126/69
[2018-10-06] MEDS ORDERED: Tubing IV Secondary IV ONE (17:23)
[2018-10-06 20:00] VITALS: BP 113/74
[2018-10-06] MEDS: FAT EMULSION 20% IV SCH (20:00)
[2018-10-06] MEDS: Dyna-Hex 2% Top Sol 2oz TOPIC SCH (20:00)
[2018-10-06] MEDS: TPN IV SCH (20:00)
[2018-10-07] VITALS: BP 120/67
[2018-10-07] MEDS: LORazepam 1mg tab SL PRN ×4 (02:03→17:04)
[2018-10-07 04:00] VITALS: BP 114/66
[2018-10-07] MEDS: NovoLOG Insulin Flexpen SUBQ SCH ×4 (06:00→18:24)
[2018-10-07] MEDS: PCA shift volume MISC SCH ×2 (07:00→19:21)
[2018-10-07 08:00] VITALS: BP 120/85
[2018-10-07] MEDS ORDERED: PCA HYDROmorphone 1mg/ml 30 ML IV PRN (08:30)
[2018-10-07] MEDS ORDERED: DiphenhydrAMINE 50mg/ml Inj IVP PRN (08:30)
[2018-10-07] MEDS ORDERED: Hydromorphone 0.5mg/0.5ml inj IVP PRN (08:30)
[2018-10-07] MEDS ORDERED: Rate Change PCA 1 Each MISC PRN (08:30)
[2018-10-07] MEDS ORDERED: Naloxone 0.4mg/ml Inj IVP PRN (08:30)
[2018-10-07] MEDS ORDERED: HYDROmorphone 1mg/ml Carpuject SUBQ PRN (08:30)
[2018-10-07] MEDS: Flonase Nasal Inhaler 16gm NASAL SCH (08:45)
[2018-10-07] MEDS: AZELASTINE NASAL SCH (08:45)
[2018-10-07] MEDS: Cefepime HCl 1 GM in D5W 55 ML IVPB SCH (08:46)
[2018-10-07] MEDS: Phytonadione 10 mg/mL 1ml amp SUBQ SCH (08:46)
[2018-10-07] MEDS: Hyoscyamine 0.125mg tab ORAL PRN (09:05)
--- NOTE | 2018-10-07 09:45 | Progress Note ---
DATE: 10/07/2018 SUBJECTIVE: The patient is afebrile. Vital signs are stable. She has persistent abdominal cramps and persistent pain with voiding. Her abdomen is soft and still slightly distended. The incision is healing. Her urine output has been 2600 mL in the last 24 hours and Kock pouch ileostomy output only 210 mL. IMPRESSION: 1. Early postoperative persistent partial small bowel obstruction. 2. Painful urination, status post treatment for urinary tract infection. PLAN: A stat CT scan of her abdomen and pelvis with oral and IV contrast will be obtained and further decisions made following that. I replaced her Kock pouch ileal catheter without difficulty. ADDENDUM: CT scan shows partial obstruction at mid-small bowel with dilated proximal and decompressed distal. There is no anatomic abnormality of urinary tract/bladder Plan: 1) Will do gastrograffin pouchogram XRay in AM 2) Urology evaluation Vishnu Cuevas M.D. DR: GABY JOB#: [id number] CC: MATT
[2018-10-07 10:15] LABS: APPEARANCE,URINE CLEAR; BILIRUBIN, URINE NEGATIVE (NEGATIVE); GLUCOSE, URINE (UA) NEGATIVE (NEGATIVE); KETONES,URINE NEGATIVE (NEGATIVE); LEUKOCYTE ESTERASE ,URINE NEGATIVE (NEGATIVE); NITRITE,URINE NEGATIVE (NEGATIVE); PH,URINE 6.5 (4.5-8.0); PROTEIN,URINE NEGATIVE (NEGATIVE); UROBILINOGEN,URINE NORMAL MG/DL (0.0-1.0)
[2018-10-07 10:16] LABS: COLOR,URINE YELLOW
[2018-10-07 12:00] VITALS: BP 114/82
--- NOTE | 2018-10-07 12:29 | Diagnostic Imaging Report ---
Clinical Indication: Abdominal pain, difficulty integrating continent ileostomy pouch, post recent pouch revision Technique: Patient given oral contrast. IV administration nonionic contrast. Venous phase spiral acquisition obtained through the abdomen and pelvis. Multiplanar reconstructions were generated. Total dose length product 545.52 mGycm. CTDIvol(s) 10.75 mGy. Dose reduction achieved using automated exposure control Comparison: 10/01/2018 noncontrast study Findings: Again demonstrated is evidence of prior colectomy. Again demonstrated is a left lower quadrant continent ileostomy. A Brock catheter is present within the ileostomy, tip fairly deep within the pouch. Proximal small bowel loops are dilated. There are collapsed distal small bowel loops. This raises concern for small bowel obstruction. Note that a transition point is not definitely identified, however. Contrast is only seen partially through the small bowel. No contrast is seen entering the pouch. Degree of small bowel distention is similar to the previous exam. However, the distal small bowel is much more collapsed than on the prior study. There are midline skin emil and a midline incision. No significant incisional fluid collections are demonstrated. A small amount of presumably free fluid is seen within the pelvis. No or loculated fluid collections are demonstrated. No evidence of intraperitoneal gas. Previous small postoperative gas bubbles are no longer evident Liver, gallbladder, bile ducts, pancreas, spleen, adrenals are unremarkable. Kidneys demonstrate bilateral subcentimeter low-attenuation lesions which are too small to characterize. No retroperitoneal or mesenteric mass or adenopathy. No pelvic mass or adenopathy. Uterus and adnexal structures appear unremarkable. There are dependent posterior atelectatic changes on the left. Lungs and pleural spaces are otherwise clear. The heart is upper limits normal in size. The bones are unremarkable. Impression: Distended proximal small bowel with slow forward contrast transit, collapsed distal small bowel. Findings are concerning for mid small bowel obstruction. However, given recent surgery. Is quite possible that findings represent atypical postoperative ileus Persistent but decreased free pelvic fluid. No evidence of loculated abscess Other postsurgical changes as described Minimal posterior pulmonary dependent atelectatic changes Subcentimeter low-attenuation renal lesions, too small to characterize, most likely benign simple cortical cysts Findings discussed by phone with Dr. Cuevas at the time of interpretation The CT scanner at [facility] is accredited by the [employer] and the scans are performed using protocols designed to limit radiation exposure to as low as reasonably achievable to attain images of sufficient resolution adequate for diagnostic evaluation.
[2018-10-07 16:00] VITALS: BP 110/67
[2018-10-07] MEDS: NS w/KCl 40mEq 1,000 ML IV SCH (18:52)
[2018-10-07 20:00] VITALS: BP 119/72
[2018-10-07] MEDS: Dyna-Hex 2% Top Sol 2oz TOPIC SCH (20:00)
[2018-10-07] MEDS: TPN IV SCH (20:00)
[2018-10-07] MEDS: FAT EMULSION 20% IV SCH (20:00)
[2018-10-08 00:24] VITALS: BP 124/76
[2018-10-08] MEDS: LORazepam 1mg tab SL PRN ×2 (01:49→13:53)
[2018-10-08 04:28] VITALS: BP 124/76
[2018-10-08] MEDS: NovoLOG Insulin Flexpen SUBQ SCH ×4 (05:48→18:00)
[2018-10-08 06:36] LABS: BASOPHILS % (AUTO) 1.5 % (0.0-2.0); EOSINOPHILS % (AUTO) 5.8 % (0.0-3.0); HEMATOCRIT 38.7 % (37.0-47.0); HEMOGLOBIN 12.9 G/DL (12.0-16.0); LYMPHOCYTES % (AUTO) 21.1 % (20.0-45.0); MEAN CORPUSCULAR VOLUME 90 FL (80-99); MONOCYTES % (AUTO) 8.8 % (1.0-10.0); NEUTROPHILS % (AUTO) 62.8 % (45.0-75.0); PLATELET COUNT 325 K/UL (150-450); RED CELL DISTRIBUTION WIDTH 13.7 % (11.6-14.8); WHITE BLOOD COUNT 6.1 K/UL (4.8-10.8)
[2018-10-08 06:49] LABS: ALANINE AMINOTRANSFERASE 347 U/L (12-78); ALBUMIN 2.9 G/DL (3.4-5.0); ALBUMIN/GLOBULIN RATIO 0.7 (1.0-2.7); ALKALINE PHOSPHATASE 152 U/L (46-116); ANION GAP 6 mmol/L (5-15); ASPARTATE AMINO TRANSFERASE 206 U/L (15-37); BLOOD UREA NITROGEN 14 mg/dL (7-18); CARBON DIOXIDE 28 MMOL/L (21-32); CHLORIDE 104 MMOL/L (98-107); CREATININE 0.8 MG/DL (0.55-1.30); PHOSPHORUS 4.2 MG/DL (2.5-4.9); POTASSIUM 4.9 MMOL/L (3.5-5.1); SODIUM 138 MMOL/L (136-145)
[2018-10-08] MEDS: PCA shift volume MISC SCH ×2 (07:21→19:46)
[2018-10-08 07:52] LABS: BILIRUBIN,TOTAL 0.5 MG/DL (0.2-1.0)
[2018-10-08 08:00] VITALS: BP 130/69
[2018-10-08] MEDS: Flonase Nasal Inhaler 16gm NASAL SCH (09:40)
[2018-10-08] MEDS: AZELASTINE NASAL SCH (09:40)
[2018-10-08] MEDS: Cefepime HCl 1 GM in D5W 55 ML IVPB SCH (09:41)
--- NOTE | 2018-10-08 09:45 | Progress Note ---
DATE: 10/08/2018 SUBJECTIVE: Afebrile with stable vital signs. She feels much improved since the CAT scan yesterday with much reduced bowel cramping and distention and also her urinary symptoms have improved significantly. There is minimal pain with voiding at this time. The abdomen is soft and flat, still slightly tympanitic, but no longer distended. Incision is clean. Urine output 2850, Kock pouch ileostomy output 730. The labs are all within normal limits except for slight increase in liver enzymes and her albumin is 2.9. IMPRESSION: Improved. PLAN: We will proceed with Gastrografin, pouchogram with retrograde small bowel series x-ray. Vishnu Cuevas M.D. DR: GABY JOB#: [id number] CC:
[2018-10-08 12:00] VITALS: BP 142/90
[2018-10-08] MEDS ORDERED: HYDROmorphone 1mg/ml Carpuject SUBQ PRN (13:15)
[2018-10-08] MEDS ORDERED: Naloxone 0.4mg/ml Inj IVP PRN (13:15)
[2018-10-08] MEDS ORDERED: Hydromorphone 0.5mg/0.5ml inj IVP PRN (13:15)
[2018-10-08] MEDS ORDERED: DiphenhydrAMINE 50mg/ml Inj IVP PRN (13:15)
[2018-10-08] MEDS ORDERED: Rate Change PCA 1 Each MISC PRN (13:15)
[2018-10-08] MEDS: NS w/KCl 40mEq 1,000 ML IV SCH (14:33)
--- NOTE | 2018-10-08 15:04 | Diagnostic Imaging Report ---
Indication: Abdominal distention, possible small bowel obstruction, history of continent ileostomy Technique: Contrast instilled via previously placed Brock catheter within the continent ileostomy. Spot images were obtained in multiple projections Comparison: 09/30/2018 abdominal radiograph Findings: Environmental Health [employer] Safety Intern film demonstrates diffuse gaseous distention of small bowel, which is slightly less extensive than on the previous exam. Midline skin emil are noted. Extensive anastomotic emil are seen in the pelvis. Note that none of the ingested contrast from previous day's CT scan is visualized, presumably are evacuated Instilled contrast fills the ileostomy reservoir. However, no reflux into the entering small bowel is demonstrated. Pouch empties nearly completely upon drainage Impression: No reflux of contrast from the ileostomy reservoir noted. The possibility of obstruction at the anastomosis of the small bowel with the reservoir should be considered Persistent, slightly improved small bowel distention, since prior radiograph of 09/30/2018 Images reviewed in person with Dr. Cuevas
[2018-10-08] MEDS ORDERED: PCA HYDROmorphone 1mg/ml 30 ML IV PRN (15:15)
[2018-10-08 16:00] VITALS: BP 126/88
[2018-10-08] MEDS: Hyoscyamine 0.125mg tab ORAL PRN (16:52)
[2018-10-08 20:00] VITALS: BP 120/71
[2018-10-08] MEDS: TPN IV SCH (20:10)
[2018-10-08] MEDS: Dyna-Hex 2% Top Sol 2oz TOPIC SCH (20:10)
[2018-10-08] MEDS: FAT EMULSION 20% IV SCH (20:10)
[2018-10-09 00:45] VITALS: BP 124/75
[2018-10-09 04:31] VITALS: BP 108/63
[2018-10-09 05:33] LABS: ALANINE AMINOTRANSFERASE 253 U/L (12-78); ALBUMIN 2.9 G/DL (3.4-5.0); ALBUMIN/GLOBULIN RATIO 0.8 (1.0-2.7); ALKALINE PHOSPHATASE 137 U/L (46-116); ANION GAP 7 mmol/L (5-15); ASPARTATE AMINO TRANSFERASE 99 U/L (15-37); BILIRUBIN,TOTAL 0.5 MG/DL (0.2-1.0); BLOOD UREA NITROGEN 17 mg/dL (7-18); CALCIUM 9.1 MG/DL (8.5-10.1); CARBON DIOXIDE 26 MMOL/L (21-32); CHLORIDE 105 MMOL/L (98-107); CREATININE 0.7 MG/DL (0.55-1.30); POTASSIUM 4.3 MMOL/L (3.5-5.1); SODIUM 138 MMOL/L (136-145)
[2018-10-09] MEDS: NovoLOG Insulin Flexpen SUBQ SCH ×4 (06:05→18:00)
[2018-10-09] MEDS: PCA shift volume MISC SCH ×2 (07:02→19:28)
[2018-10-09 07:58] VITALS: BP 105/68
[2018-10-09] MEDS ORDERED: Rate Change PCA 1 Each MISC PRN (08:15)
[2018-10-09] MEDS ORDERED: PCA HYDROmorphone 1mg/ml 30 ML IV PRN ×2 (08:15→08:17)
[2018-10-09] MEDS ORDERED: Naloxone 0.4mg/ml Inj IVP PRN (08:16)
[2018-10-09] MEDS ORDERED: DiphenhydrAMINE 50mg/ml Inj IVP PRN (08:16)
[2018-10-09] MEDS ORDERED: Hydromorphone 0.5mg/0.5ml inj IVP PRN (08:16)
[2018-10-09] MEDS ORDERED: HYDROmorphone 1mg/ml Carpuject SUBQ PRN (08:16)
--- NOTE | 2018-10-09 08:29 | General Progress Note ---
Progress Note Progress Note AVSS Overnight no cramping but some return of bladder pain with voiding. Abdomen more distended Urine 2600 Kock pouch ileo only 65cc/24 hours LFTs better, albumin 2.9 Imp. Persistent partial small bowel obstruction Plan: Mineral oil 30cc po BID today continue npo, TPN, continuous drainage of Kock pouch If not resolving will need to return to surgery to relieve obstruction - full discussion with patient d/c antibiotics Vishnu Cuevas MD Oct 09, 2018 08:29
[2018-10-09] MEDS: AZELASTINE NASAL SCH (08:54)
[2018-10-09] MEDS: Flonase Nasal Inhaler 16gm NASAL SCH (08:54)
[2018-10-09] MEDS: NS w/KCl 40mEq 1,000 ML IV SCH (08:55)
[2018-10-09] MEDS ORDERED: Mineral Oil 30ml ud ORAL SCH ×2 (09:00→14:00)
[2018-10-09 12:00] VITALS: BP 120/80
[2018-10-09 16:00] VITALS: BP 131/79
[2018-10-09] MEDS: Dyna-Hex 2% Top Sol 2oz TOPIC SCH (19:49)
[2018-10-09] MEDS: LORazepam 1mg tab SL PRN (19:49)
[2018-10-09 20:00] VITALS: BP 128/82
[2018-10-09] MEDS: FAT EMULSION 20% IV SCH (20:26)
[2018-10-09] MEDS: TPN IV SCH (20:26)
[2018-10-10] VITALS: BP 122/70
[2018-10-10] MEDS: NovoLOG Insulin Flexpen SUBQ SCH ×5 (00:01→23:59)
[2018-10-10] MEDS: NS w/KCl 40mEq 1,000 ML IV SCH ×2 (03:06→23:56)
[2018-10-10 04:00] VITALS: BP 123/81
[2018-10-10 05:23] LABS: BASOPHILS % (AUTO) 1.3 % (0.0-2.0); EOSINOPHILS % (AUTO) 3.1 % (0.0-3.0); HEMATOCRIT 43.7 % (37.0-47.0); HEMOGLOBIN 14.4 G/DL (12.0-16.0); LYMPHOCYTES % (AUTO) 17.1 % (20.0-45.0); MEAN CORPUSCULAR VOLUME 89 FL (80-99); MONOCYTES % (AUTO) 8.3 % (1.0-10.0); NEUTROPHILS % (AUTO) 70.2 % (45.0-75.0); PLATELET COUNT 360 K/UL (150-450); RED BLOOD COUNT 4.89 M/UL (4.20-5.40); RED CELL DISTRIBUTION WIDTH 13.1 % (11.6-14.8); WHITE BLOOD COUNT 8.6 K/UL (4.8-10.8)
[2018-10-10 05:48] LABS: ALANINE AMINOTRANSFERASE 207 U/L (12-78); ALBUMIN 3.1 G/DL (3.4-5.0); ALBUMIN/GLOBULIN RATIO 0.7 (1.0-2.7); ALKALINE PHOSPHATASE 155 U/L (46-116); ANION GAP 9 mmol/L (5-15); ASPARTATE AMINO TRANSFERASE 65 U/L (15-37); BILIRUBIN,TOTAL 0.3 MG/DL (0.2-1.0); BLOOD UREA NITROGEN 16 mg/dL (7-18); CARBON DIOXIDE 27 MMOL/L (21-32); CHLORIDE 104 MMOL/L (98-107); CREATININE 0.8 MG/DL (0.55-1.30); PHOSPHORUS 3.5 MG/DL (2.5-4.9); POTASSIUM 4.1 MMOL/L (3.5-5.1); SODIUM 140 MMOL/L (136-145)
[2018-10-10] MEDS: PCA shift volume MISC SCH ×2 (07:12→19:00)
[2018-10-10] MEDS: LORazepam 1mg tab SL PRN ×2 (07:43→20:44)
[2018-10-10 08:00] VITALS: BP 134/84
[2018-10-10] MEDS: AZELASTINE NASAL SCH (08:49)
[2018-10-10] MEDS: Flonase Nasal Inhaler 16gm NASAL SCH (08:50)
[2018-10-10 12:00] VITALS: BP 123/74
[2018-10-10] MEDS ORDERED: Naloxone 0.4mg/ml Inj IVP PRN (15:00)
[2018-10-10] MEDS ORDERED: Hydromorphone 0.5mg/0.5ml inj IVP PRN (15:00)
[2018-10-10] MEDS ORDERED: HYDROmorphone 1mg/ml Carpuject SUBQ PRN (15:00)
[2018-10-10] MEDS ORDERED: DiphenhydrAMINE 50mg/ml Inj IVP PRN (15:00)
[2018-10-10] MEDS ORDERED: Rate Change PCA 1 Each MISC PRN (15:00)
[2018-10-10] MEDS ORDERED: Mineral Oil 30ml ud ORAL SCH (15:05)
--- NOTE | 2018-10-10 15:06 | General Progress Note ---
Progress Note Progress Note AVSS She feels better in the past 24 hours with much less cramping and only slight pain with voiding Abdomen is less distended, less tympanitic Urine 2500 Kock pouch ileo 265 (prior 24 hours only 65cc) Labs ok with albumin up 3.1 Imp. resolving partial SBO Plan: Trial of clear liquid diet + 2 additional doses of mineral oil po Maintain continuous drainage of Kock pouch Continue TPN Vishnu Cuevas MD Oct 10, 2018 15:06
[2018-10-10 16:00] VITALS: BP 126/77
[2018-10-10 20:00] VITALS: BP 117/74
[2018-10-10] MEDS: Dyna-Hex 2% Top Sol 2oz TOPIC SCH (20:23)
[2018-10-10] MEDS: TPN IV SCH (20:26)
[2018-10-10] MEDS: FAT EMULSION 20% IV SCH (20:26)
[2018-10-11] VITALS: BP 115/64
[2018-10-11 04:00] VITALS: BP 114/69
[2018-10-11] MEDS: NovoLOG Insulin Flexpen SUBQ SCH ×4 (06:22→23:57)
[2018-10-11] MEDS: PCA shift volume MISC SCH ×2 (07:00→19:09)
[2018-10-11] MEDS: LORazepam 1mg tab SL PRN ×3 (07:53→20:06)
[2018-10-11 08:00] VITALS: BP 124/71
[2018-10-11] MEDS: AZELASTINE NASAL SCH (08:39)
[2018-10-11] MEDS: Flonase Nasal Inhaler 16gm NASAL SCH (08:39)
[2018-10-11] MEDS ORDERED: Mineral Oil 30ml ud ORAL SCH (09:00)
[2018-10-11] MEDS ORDERED: Rate Change PCA 1 Each MISC PRN (10:30)
[2018-10-11] MEDS ORDERED: Naloxone 0.4mg/ml Inj IVP PRN (10:30)
--- NOTE | 2018-10-11 10:31 | General Progress Note ---
Progress Note Progress Note AVSS Not able to tolerate clear liquids without cramping, but if npo she is comfortable Abdomen remains mildly distended. Cipriano removed - well healed Urine 2400 Kock pouch ileo 320 Imp. Persistent partial SBO Plan: continue TPN, npo, Kock pouch to continuous drainage surgery in next 24-72 hours if not improving labs in AM Vishnu Cuevas MD Oct 11, 2018 10:31
[2018-10-11] MEDS ORDERED: PCA HYDROmorphone 1mg/ml 30 ML IV PRN (11:00)
[2018-10-11] MEDS ORDERED: DiphenhydrAMINE 50mg/ml Inj IVP PRN (11:00)
[2018-10-11] MEDS ORDERED: Hydromorphone 0.5mg/0.5ml inj IVP PRN (11:00)
[2018-10-11 12:00] VITALS: BP 143/89
[2018-10-11 16:00] VITALS: BP 126/81
[2018-10-11] MEDS ORDERED: NS Irrig 1000ml ONE (17:17)
[2018-10-11 20:00] VITALS: BP 124/76
[2018-10-11] MEDS: Dyna-Hex 2% Top Sol 2oz TOPIC SCH (20:05)
[2018-10-11] MEDS: NS w/KCl 40mEq 1,000 ML IV SCH (20:06)
[2018-10-11] MEDS: FAT EMULSION 20% IV SCH (20:08)
[2018-10-11] MEDS: TPN IV SCH (20:08)
[2018-10-12] VITALS (15 sets, daily range): BP systolic 107–148; BP diastolic 66–88
[2018-10-12] MEDS: NovoLOG Insulin Flexpen SUBQ SCH ×4 (06:00→23:38)
[2018-10-12 06:41] LABS: BASOPHILS % (AUTO) 1.3 % (0.0-2.0); EOSINOPHILS % (AUTO) 2.6 % (0.0-3.0); HEMATOCRIT 40.7 % (37.0-47.0); HEMOGLOBIN 13.4 G/DL (12.0-16.0); LYMPHOCYTES % (AUTO) 12.1 % (20.0-45.0); MEAN CORPUSCULAR VOLUME 89 FL (80-99); MONOCYTES % (AUTO) 7.4 % (1.0-10.0); NEUTROPHILS % (AUTO) 76.5 % (45.0-75.0); PLATELET COUNT 320 K/UL (150-450); RED BLOOD COUNT 4.57 M/UL (4.20-5.40); WHITE BLOOD COUNT 9.8 K/UL (4.8-10.8)
[2018-10-12 07:17] LABS: ALANINE AMINOTRANSFERASE 149 U/L (12-78); ALBUMIN 3.1 G/DL (3.4-5.0); ALBUMIN/GLOBULIN RATIO 0.7 (1.0-2.7); ALKALINE PHOSPHATASE 148 U/L (46-116); ANION GAP 9 mmol/L (5-15); ASPARTATE AMINO TRANSFERASE 52 U/L (15-37); BILIRUBIN,TOTAL 0.6 MG/DL (0.2-1.0); BLOOD UREA NITROGEN 16 mg/dL (7-18); CALCIUM 8.9 MG/DL (8.5-10.1); CARBON DIOXIDE 24 MMOL/L (21-32); CHLORIDE 105 MMOL/L (98-107); CREATININE 0.7 MG/DL (0.55-1.30); POTASSIUM 4.5 MMOL/L (3.5-5.1); SODIUM 138 MMOL/L (136-145)
[2018-10-12] MEDS: PCA shift volume MISC SCH ×2 (07:20→19:00)
[2018-10-12] MEDS: AZELASTINE NASAL SCH (09:06)
[2018-10-12] MEDS: Flonase Nasal Inhaler 16gm NASAL SCH (09:07)
[2018-10-12] MEDS ORDERED: LR 1000ml 1,000 ML IVLG SCH (09:41)
[2018-10-12] MEDS ORDERED: oxyCODONE HCL/Acetaminophen 5/325mg ORAL PRN (09:45)
[2018-10-12] MEDS ORDERED: Meperidine 50mg/ml Inj(FOR RIGORS ONLY) IVP PRN (09:45)
[2018-10-12] MEDS ORDERED: Norco 5mg/325mg tab ORAL PRN (09:45)
[2018-10-12] MEDS ORDERED: LORazepam Inj 2mg/ml 1ml IV PRN (09:45)
[2018-10-12] MEDS ORDERED: DiphenhydrAMINE 50mg/ml Inj IVP PRN (09:45)
[2018-10-12] MEDS ORDERED: Acetaminophen (Non formulary) 100 ML IV ONE (09:45)
[2018-10-12] MEDS ORDERED: Midazolam 2mg/2ml Inj IVP PRN (09:45)
[2018-10-12] MEDS ORDERED: fentaNYL 100 mcg/2 mL IV PRN (09:45)
[2018-10-12] MEDS ORDERED: Hydromorphone 0.5mg/0.5ml inj IVP PRN (09:45)
[2018-10-12] MEDS ORDERED: HYDROcodone/Acetamin 7.5/325 tab ORAL PRN (09:45)
[2018-10-12] MEDS ORDERED: Atropine Sulfate 0.4mg/ml inj IVP PRN (09:45)
[2018-10-12] MEDS ORDERED: Ketorolac 30mg Inj IV PRN ×2 (09:45)
[2018-10-12] MEDS ORDERED: Metoclopramide 10mg/2ml Inj IVP PRN (09:45)
[2018-10-12] MEDS ORDERED: Dexamethasone 4mg/ml vial ONE (09:50)
[2018-10-12] MEDS ORDERED: Propofol 200mg/20ml IV ONE ×3 (09:50→12:05)
[2018-10-12] MEDS ORDERED: Lidocaine 1% MPF 10mg/ml 5ml ONE (09:50)
[2018-10-12] MEDS ORDERED: Sodium Chloride 10ml vial INJ ONE (09:50)
[2018-10-12] MEDS ORDERED: fentaNYL 100 mcg/2 mL IV ONE (09:59)
[2018-10-12] MEDS ORDERED: NS Irrig 1000ml ONE ×2 (10:00→14:09)
[2018-10-12] MEDS ORDERED: LR 1000ml ONE (10:00)
[2018-10-12] MEDS ORDERED: Sterile Water Irrig 1000ml IRRIG ONE (10:00)
[2018-10-12] MEDS ORDERED: NeoSporin Gu Irrig 1ml Amp IRRIG ONE (10:06)
[2018-10-12] MEDS ORDERED: Lidocaine 1% 10mg/ml/Epi 0.005mg/ml 30ml vial INJ ONE (10:06)
[2018-10-12] MEDS ORDERED: Bacitracin 50000 Units Vial ONE (10:06)
[2018-10-12] MEDS ORDERED: Zemuron 50mg/5ml Inj IV ONE (11:21)
[2018-10-12] MEDS ORDERED: Glycopyrrolate 0.2mg/ml 1ml Vial ONE ×2 (12:04→12:20)
[2018-10-12] MEDS ORDERED: Lidocaine 1% Plain 30 ml INJ ONE (12:04)
[2018-10-12] MEDS ORDERED: Naloxone 0.4mg/ml Inj ONE (13:13)
--- NOTE | 2018-10-12 13:33 | Immediate Post-Op Evaluation ---
Immediate Post-Op Evalulation Immediate Post-Op Evalulation Procedure: Exploratory laparotomy, Bowel Repair, G Tube Date of Evaluation: Oct 12, 2018 Time of Evaluation: 13:45 IV Fluids: 800 LR Blood Products: 0 Estimated Blood Loss: 75 Urinary Output: 200 Blood Pressure Systolic: 148 Blood Pressure Diastolic: 88 Pulse Rate: 73 Respiratory Rate: 16 O2 Sat by Pulse Oximetry: 100 Temperature (Fahrenheit): 98 Pain Score (1-10): 2 Nausea: No Vomiting: No Complications 0 Patient Status: awake, reacts, patent, extubated, none Hydration Status: adequate Dru Gram Ancef IV Given Within 1 Hr of Incision: Yes Time Given: 10:16 Bruce Tidwell MD Oct 12, 2018 13:33
--- NOTE | 2018-10-12 13:47 | Pre-Procedure Note/Attestation ---
Pre-Procedure Note/Attestation Complete Prior to Procedure Planned Procedure: not applicable Procedure Narrative: diagnostic laparoscopy, exploratory laparotomy, possible bowel resection, lysis of adhesions, gastrostomy Attestation I attest that I discussed the nature of the procedure; its benefits; risks and complications; and alternatives (and the risks and benefits of such alternatives ), prior to the procedure, with the patient (or the patient's legal small business representative). I attest that, if there was a reasonable possibility of needing a blood transfusion, the patient (or the patient's legal small business representative) was given the [facility] standardized written summary, pursuant to the Damion Hortense Blood Safety Act ([place] Health and Safety Code # 1645, as amended). I attest that I re-evaluated the patient just prior to the surgery and that there has been no change in the patient's H&P, except as documented below: Francisco Martinez Oct 12, 2018 13:47
--- NOTE | 2018-10-12 13:48 | Brief Operative Note ---
Immediate Post Operative Note Operative Note Pre-op Diagnosis: sbo Procedure: diagnostic laparoscopy exploratory laparotomy small bowel resection gastrostomy lysis of adhesions Post-op Diagnosis: same as pre-op Surgeon: castro Anesthesiologist: idalia Anesthesia: general Specimen: yes Complications: none Condition: stable Fluids: see records Estimated Blood Loss: volume - 100 Drains: other Implant(s) used?: No Francisco Martinez Oct 12, 2018 13:47
[2018-10-12] MEDS: NS w/KCl 40mEq 1,000 ML IV SCH (14:47)
--- NOTE | 2018-10-12 18:45 | Operative Note - Dictated ---
DATE OF OPERATION: 10/12/2018 PREOPERATIVE DIAGNOSIS: Small-bowel obstruction. POSTOPERATIVE DIAGNOSIS: Small-bowel obstruction. OPERATION PERFORMED: 1. Diagnostic laparoscopy. 2. Exploratory laparotomy. 3. Lysis of adhesions. 4. Small bowel resection. 5. Gastrostomy tube placement. 6. Modifier 22. ATTENDING SURGEON: Francisco Martinez M.D. NEEDLE LOOM TENDER: None. ANESTHESIOLOGIST: Bruce Tidwell M.D. ANESTHESIA: General CHILDREN LIBRARIAN. ESTIMATED BLOOD LOSS: 100 mL. IV FLUIDS: Please see anesthesia records. ANTIBIOTICS: Ancef 2 g IV given 1 hour prior to cut time. SPECIMENS: Small-bowel segments sent to pathology for review. COMPLICATIONS: None. DRAINS: Gastrostomy and BCIR drain. WOUND CLASSIFICATION: Class III. INDICATIONS FOR PROCEDURE: This is a 68-year-old female, patient of Dr. Vishnu Cuevas, who on 09/25/2018, was operated on for malfunctioning Kock pouch continent ileostomy with partial distal bowel receiving a revision of Kock pouch with lysis of small-bowel adhesions. The patient was doing well initially postoperatively, but since has been unable to tolerate significant p.o. intake and remains distended with CT scan demonstrating distended proximal small bowel with flow of contrast in the collapsed distal bowel concerning for mid small-bowel obstruction. Given these findings, surgery was indicated and recommended. Risks, benefits, and alternatives were discussed with the patient in detail, who expressed understanding and consented to surgery. OPERATIVE NOTE: The patient was taken to the operating room, placed on the operative table in supine position with bilateral arms out. All bony prominences were well padded. SCDs were placed. Brock catheter was inserted using sterile technique. The patient was given IV Ancef 2 g 1 hour prior to cut time. Preoperative time-out was taken identifying the patient, procedure, operative site, and surgical staff. General anesthesia was induced. The patient was intubated. The abdomen was clipped, prepped, and draped in standard surgical fashion. The prior midline incision was used to make a small incision, which was carried down to the fascia and entry into the abdomen was obtained using open Barb technique without complication. Following this, a Barb trocar was inserted. The abdomen was insufflated to 12 to 15 mmHg. Laparoscope was inserted. The abdomen was inspected. There was significantly dilated bowel and adhesions to the peritoneum, anterior abdominal wall, and interloop adhesions and therefore given the extensive nature of what was seen laparoscopically, decision was made to immediately convert to laparotomy. The abdomen was desufflated. Scope was removed. The trocar was removed and the midline incision from prior laparotomy was utilized and reopened using a fresh #10 scalpel, down through the subcutaneous tissue to the fascia using electrocautery and blunt dissection. Prior fascial closure sutures were identified, opened, and the abdomen was re-explored. The incision was carried more proximally given the amount of bowel dilatation and exposure necessary for continuation of the procedure. Once this was complete, there were areas of distal collapsed small bowel and very dilated proximal small bowel. The stomach was noted and decompressed. At this time, a portion of small bowel from the left upper quadrant was identified and brought into the operative field without significant adhesions. Ligament of Treitz was identified and slowly the bowel was run from the ligament of Treitz distally. Proximally from the ligament of Treitz, there were dense adhesions of the small bowel to the anterior abdominal wall, which were lysed using Metzenbaum scissors. As we continued, there was a portion of small bowel in the right upper quadrant that was densely adhesed to the right upper quadrant with significant interloop adhesions as well. This was released from the right upper quadrant, anterior abdominal wall, and retroperitoneum, and brought into the operative field, but the extensive nature of the small bowel interloop adhesions were left alone temporarily. Following this, the remainder of the small bowel was run to the anastomosis to the Kock pouch. Lysis of adhesions was performed interloop and to the peritoneum and anterior abdominal wall as necessary to free all the bowel. The pouch was in the pelvis and freed and brought into the operative field as well. The pouch was otherwise healthy and without complication. The pouch was placed back into the pelvis and the portions of small bowel that were otherwise now adhesion-free and without complication were left in place. One area of small bowel was significantly with interloop adhesions in the area of the obstruction given the collapsed distal bowel and significantly dilated just proximal to this area of small bowel. Lysis of adhesions was attempted, but enterotomy was easily made and the bowel was of questionable viability and therefore, this segment was excised. A segment proximal and distal to this densely adhesed section of bowel obstruction was identified and a window was made in the peritoneum. The bowel was divided proximally and distally using a linear stapler. The mesentery was then divided using a Thunderbeat energy device. The small-bowel segment was then sent to pathology for review. Following this, the abdomen was reinspected and ensured for hemostasis and no other potentially obstructive adhesions. At this time, the small bowel was anastomosed together in a novo-[id number] fashion by first placing a posterior layer of 3-0 silk Lembert sutures followed by making enterotomy in the proximal and distal aspect when staple lines were aligned and firing a 55 mm stapler through the 2 enterotomies creating anastomosis. The remaining defect was then closed using two-layered fashion beginning with 3-0 Vicryl running suture followed by 3-0 silk interrupted Lembert sutures. Staple line was imbricated with Lembert sutures as well. The patency of anastomosis was identified and at this time, the bowel was run from the ligament of Treitz down to the Kock pouch and no other areas of significant obstructive process were identified. At this time, decision was made to place a G-tube for decompression. An incision was made in the left upper quadrant using a fresh #11 scalpel. Incision was carried down with a tonsil to the abdominal wall and perforated through. An 18-S[place] Brock catheter was brought into the operative field through this incision into the abdomen. A small gastrotomy was made and a pursestring suture was placed around it. The 18-[place] Brock catheter was inserted into the gastrostomy and the pursestring tightened. Following this, the Brock balloon was insufflated and the tube noted to be in the gastric lumen without complication. The stomach was then anchored to the anterior abdominal wall in 3 places utilizing a prior gastrostomy site as the posterior anchor. Following this, a 28-[place] Brock catheter was placed into the Kock pouch and once positioned properly in the pelvis, it was sutured to the skin using 2-0 nylon sutures. The gastrostomy tube was also sutured to the skin using 2-0 silk sutures. At this time, the abdomen was inspected. Hemostasis was noted. No other complication or abnormalities noted and decision was made to begin the closure. The fascia was reapproximated using 0 PDS suture. The wounds were cleansed and the skin incision was reapproximated using surgical skin emil. Dressings were applied. Both Kock pouch and gastrostomy tube were placed to gravity drainage and the patient was awakened and taken to postanesthetic care unit in stable condition. Sponge and needle count were correct. No immediate postoperative complications noted. Francisco Martinez M.D. DR: Chel JOB#: [id number] CC: MATT
[2018-10-12] MEDS: LORazepam 1mg tab SL PRN ×2 (19:41→23:38)
[2018-10-12] MEDS: Hyoscyamine 0.125mg tab ORAL PRN (20:33)
[2018-10-12] MEDS: Dyna-Hex 2% Top Sol 2oz TOPIC SCH (20:34)
[2018-10-12] MEDS: TPN IV SCH (20:35)
[2018-10-12] MEDS: FAT EMULSION 20% IV SCH (20:35)
[2018-10-12] MEDS: Piperacillin/Tazobactam 3.375 GM in NS 110 ML IVPB SCH (21:01)
[2018-10-13] VITALS: BP 122/76
[2018-10-13] MEDS: HYDROmorphone 1mg/ml Carpuject SUBQ PRN ×5 (01:08→16:43)
[2018-10-13] MEDS: Hyoscyamine 0.125mg tab ORAL PRN (01:19)
[2018-10-13] MEDS: LORazepam 1mg tab SL PRN (03:40)
[2018-10-13 03:53] VITALS: BP 126/76
[2018-10-13] MEDS: Piperacillin/Tazobactam 3.375 GM in NS 110 ML IVPB SCH ×3 (05:56→21:06)
[2018-10-13] MEDS: NovoLOG Insulin Flexpen SUBQ SCH ×3 (05:57→17:07)
[2018-10-13 06:49] LABS: HEMATOCRIT 38.1 % (37.0-47.0); HEMOGLOBIN 13.1 G/DL (12.0-16.0); MEAN CORPUSCULAR VOLUME 88 FL (80-99); PLATELET COUNT 296 K/UL (150-450); RED BLOOD COUNT 4.32 M/UL (4.20-5.40); RED CELL DISTRIBUTION WIDTH 12.8 % (11.6-14.8); WHITE BLOOD COUNT 14.8 K/UL (4.8-10.8)
[2018-10-13 07:02] LABS: ALANINE AMINOTRANSFERASE 100 U/L (12-78); ALBUMIN 2.4 G/DL (3.4-5.0); ALBUMIN/GLOBULIN RATIO 0.6 (1.0-2.7); ALKALINE PHOSPHATASE 112 U/L (46-116); ANION GAP 7 mmol/L (5-15); ASPARTATE AMINO TRANSFERASE 30 U/L (15-37); BILIRUBIN,TOTAL 0.8 MG/DL (0.2-1.0); BLOOD UREA NITROGEN 17 mg/dL (7-18); CALCIUM 8.6 MG/DL (8.5-10.1); CARBON DIOXIDE 27 MMOL/L (21-32); CHLORIDE 103 MMOL/L (98-107); CREATININE 0.7 MG/DL (0.55-1.30); SODIUM 137 MMOL/L (136-145)
[2018-10-13] MEDS: PCA shift volume MISC SCH ×2 (07:10→19:08)
[2018-10-13 08:00] VITALS: BP 115/72
[2018-10-13] MEDS: AZELASTINE NASAL SCH (08:50)
[2018-10-13] MEDS: Flonase Nasal Inhaler 16gm NASAL SCH (08:50)
[2018-10-13] MEDS ORDERED: LORazepam 1mg tab SL PRN (11:00)
[2018-10-13] MEDS ORDERED: Hydromorphone 0.5mg/0.5ml inj IVP PRN (11:00)
[2018-10-13] MEDS ORDERED: PCA HYDROmorphone 1mg/ml 30 ML IV PRN (11:00)
[2018-10-13 12:00] VITALS: BP 113/74
[2018-10-13] MEDS ORDERED: Ketorolac 30mg Inj IV SCH (12:15)
--- NOTE | 2018-10-13 13:04 | General Progress Note ---
Progress Note Progress Note Surgery: no acute events. pain. no n/v/f/c. leukocytosis no output from g tube or ileo dressings clean / dry tubes in place -cont current care -tube care as per protocol -okay for ice chips and to chew gum -thank you Francisco Martinez Oct 13, 2018 13:04
[2018-10-13] MEDS: Pantoprazole Inj IVP SCH (13:15)
[2018-10-13] MEDS: NS w/KCl 40mEq 1,000 ML IV SCH ×2 (15:30→18:54)
[2018-10-13] MEDS: Acetaminophen (Non formulary) 100 ML IV SCH (15:52)
[2018-10-13 16:00] VITALS: BP 113/69
[2018-10-13 20:00] VITALS: BP 95/59
[2018-10-13] MEDS: Dyna-Hex 2% Top Sol 2oz TOPIC SCH (20:00)
[2018-10-13] MEDS: Ketorolac 30mg Inj IV SCH (21:07)
[2018-10-13] MEDS: FAT EMULSION 20% IV SCH (21:08)
[2018-10-13] MEDS: TPN IV SCH (21:08)
[2018-10-14] VITALS: BP 131/72
[2018-10-14] MEDS: Acetaminophen (Non formulary) 100 ML IV SCH ×3 (00:21→15:57)
[2018-10-14] MEDS: NovoLOG Insulin Flexpen SUBQ SCH ×4 (00:22→18:00)
[2018-10-14] MEDS: HYDROmorphone 1mg/ml Carpuject SUBQ PRN ×5 (01:23→22:23)
[2018-10-14 04:00] VITALS: BP 129/68
[2018-10-14] MEDS: Ketorolac 30mg Inj IV SCH ×3 (04:03→20:40)
[2018-10-14] MEDS: Piperacillin/Tazobactam 3.375 GM in NS 110 ML IVPB SCH ×3 (05:57→22:23)
[2018-10-14] MEDS: PCA shift volume MISC SCH ×2 (07:00→19:00)
[2018-10-14 08:00] VITALS: BP 114/68
[2018-10-14] MEDS: AZELASTINE NASAL SCH (09:18)
[2018-10-14] MEDS: Pantoprazole Inj IVP SCH (09:18)
[2018-10-14] MEDS: Flonase Nasal Inhaler 16gm NASAL SCH (09:18)
[2018-10-14] MEDS: Phytonadione 10 mg/mL 1ml amp SUBQ SCH (09:18)
[2018-10-14] MEDS: DiphenhydrAMINE 50mg/ml Inj IVP PRN (09:36)
[2018-10-14 11:00] LABS: BASOPHILS % (AUTO) 1.1 % (0.0-2.0); EOSINOPHILS % (AUTO) 3.6 % (0.0-3.0); HEMATOCRIT 36.9 % (37.0-47.0); HEMOGLOBIN 12.1 G/DL (12.0-16.0); LYMPHOCYTES % (AUTO) 8.7 % (20.0-45.0); MEAN CORPUSCULAR VOLUME 90 FL (80-99); NEUTROPHILS % (AUTO) 78.6 % (45.0-75.0); PLATELET COUNT 265 K/UL (150-450); WHITE BLOOD COUNT 11.3 K/UL (4.8-10.8)
[2018-10-14] MEDS ORDERED: Hydromorphone 0.5mg/0.5ml inj IVP PRN (11:00)
--- NOTE | 2018-10-14 11:06 | General Progress Note ---
Progress Note Progress Note Surgery: states a bit improved today. no n/v/f/c. labs pending. afebrile, HD stable, exam stable. g tube with clear output minimal ileo tube with green/clear output minimal wound c/d/i -cont current care -TPN -drain care -Rx as written -Incentive spirometry -Ambulate and out of bed -AM labs Francisco Martinez Oct 14, 2018 11:06
[2018-10-14 11:17] LABS: ALANINE AMINOTRANSFERASE 75 U/L (12-78); ALBUMIN 2.2 G/DL (3.4-5.0); ALBUMIN/GLOBULIN RATIO 0.6 (1.0-2.7); ALKALINE PHOSPHATASE 102 U/L (46-116); ANION GAP 4 mmol/L (5-15); ASPARTATE AMINO TRANSFERASE 31 U/L (15-37); BILIRUBIN,TOTAL 0.6 MG/DL (0.2-1.0); BLOOD UREA NITROGEN 15 mg/dL (7-18); CALCIUM 8.4 MG/DL (8.5-10.1); CARBON DIOXIDE 32 MMOL/L (21-32); CHLORIDE 104 MMOL/L (98-107); CREATININE 0.8 MG/DL (0.55-1.30); POTASSIUM 4.9 MMOL/L (3.5-5.1); SODIUM 139 MMOL/L (136-145)
[2018-10-14] MEDS: NS w/KCl 40mEq 1,000 ML IV SCH (11:30)
[2018-10-14 12:00] VITALS: BP 124/74
[2018-10-14] MEDS: LORazepam 1mg tab SL PRN ×2 (12:25→17:58)
[2018-10-14] MEDS: Hyoscyamine 0.125mg tab ORAL PRN ×2 (13:19→22:23)
[2018-10-14 16:00] VITALS: BP 119/74
[2018-10-14] MEDS ORDERED: Tubing IV Secondary IV ONE (16:31)
[2018-10-14] MEDS ORDERED: NS Irrig 1000ml ONE (16:31)
[2018-10-14] MEDS ORDERED: NS 275ml ONE (16:31)
[2018-10-14 20:00] VITALS: BP 123/79
[2018-10-14] MEDS: Dyna-Hex 2% Top Sol 2oz TOPIC SCH (20:00)
[2018-10-14] MEDS: FAT EMULSION 20% IV SCH (20:48)
[2018-10-14] MEDS: TPN IV SCH (20:48)
[2018-10-15] VITALS: BP 131/77
[2018-10-15] MEDS: NS w/KCl 40mEq 1,000 ML IV SCH
[2018-10-15] MEDS: NovoLOG Insulin Flexpen SUBQ SCH ×4 (00:17→18:00)
[2018-10-15] MEDS: Acetaminophen (Non formulary) 100 ML IV SCH ×2 (00:18→08:43)
[2018-10-15] MEDS: HYDROmorphone 1mg/ml Carpuject SUBQ PRN ×2 (01:35→04:47)
[2018-10-15] MEDS: DiphenhydrAMINE 50mg/ml Inj IVP PRN (02:47)
[2018-10-15 04:00] VITALS: BP 124/80
[2018-10-15] MEDS: Ketorolac 30mg Inj IV SCH ×2 (04:00→11:42)
[2018-10-15] MEDS: Hyoscyamine 0.125mg tab ORAL PRN ×2 (05:48→13:04)
[2018-10-15] MEDS: Piperacillin/Tazobactam 3.375 GM in NS 110 ML IVPB SCH ×3 (05:50→22:13)
[2018-10-15] MEDS: LORazepam 1mg tab SL PRN ×3 (06:40→19:42)
[2018-10-15] MEDS: PCA shift volume MISC SCH ×2 (07:00→19:00)
[2018-10-15 07:38] LABS: BASOPHILS % (AUTO) 1.5 % (0.0-2.0); HEMATOCRIT 37.3 % (37.0-47.0); HEMOGLOBIN 12.3 G/DL (12.0-16.0); LYMPHOCYTES % (AUTO) 13.8 % (20.0-45.0); MEAN CORPUSCULAR VOLUME 91 FL (80-99); MONOCYTES % (AUTO) 6.7 % (1.0-10.0); PLATELET COUNT 286 K/UL (150-450); RED BLOOD COUNT 4.12 M/UL (4.20-5.40); RED CELL DISTRIBUTION WIDTH 12.8 % (11.6-14.8)
--- NOTE | 2018-10-15 07:44 | General Progress Note ---
Progress Note Progress Note Surgery: no acute events. still using MORALE OFFICER non stop. no n/v/f/c. leukocytosis resolved. electrolytes pending abd soft, mild distention, tender. g tube and ileo tube in place. g tube output minimal ileo tube output minimal -instructed to minimize pain meds as possible -ambulate and out of bed -AM labs -Incentive spirometry -Rx as written Francisco Martinez Oct 15, 2018 07:44
[2018-10-15 07:58] LABS: ALANINE AMINOTRANSFERASE 65 U/L (12-78); ALBUMIN 2.3 G/DL (3.4-5.0); ALBUMIN/GLOBULIN RATIO 0.5 (1.0-2.7); ALKALINE PHOSPHATASE 111 U/L (46-116); ANION GAP 7 mmol/L (5-15); ASPARTATE AMINO TRANSFERASE 27 U/L (15-37); BILIRUBIN,TOTAL 0.5 MG/DL (0.2-1.0); BLOOD UREA NITROGEN 13 mg/dL (7-18); CALCIUM 8.6 MG/DL (8.5-10.1); CARBON DIOXIDE 30 MMOL/L (21-32); CHLORIDE 102 MMOL/L (98-107); CREATININE 0.7 MG/DL (0.55-1.30); POTASSIUM 3.6 MMOL/L (3.5-5.1); SODIUM 139 MMOL/L (136-145)
[2018-10-15 08:00] VITALS: BP 146/87
[2018-10-15] MEDS ORDERED: DiphenhydrAMINE 50mg/ml Inj IVP PRN (08:15)
[2018-10-15] MEDS ORDERED: PCA HYDROmorphone 1mg/ml 30 ML IV PRN (08:15)
[2018-10-15] MEDS: Pantoprazole Inj IVP SCH (08:38)
[2018-10-15] MEDS: Flonase Nasal Inhaler 16gm NASAL SCH (08:38)
[2018-10-15] MEDS: AZELASTINE NASAL SCH (08:38)
[2018-10-15] MEDS ORDERED: Acetaminophen (Non formulary) 100 ML IV SCH (08:45)
[2018-10-15] MEDS ORDERED: [UNRECOGNIZED DRUG - OTHER] IV PRN ×2 (10:30→16:00)
[2018-10-15 12:00] VITALS: BP 122/79
[2018-10-15] MEDS ORDERED: Ketorolac 30mg Inj IV PRN (15:45)
--- NOTE | 2018-10-15 15:52 | General Progress Note ---
Progress Note Progress Note Kock pouch ileo catheter with only clear drainage - measured against another Brock - sutures cut and catheter advanced another 2cm into pouch - taped in place Basal infusion of PRINTED CIRCUIT BOARD REWORKER caused hallucinations and has been discontinued Vishnu Cuevas MD Oct 15, 2018 15:52
[2018-10-15 16:00] VITALS: BP 124/75
[2018-10-15] MEDS: Dyna-Hex 2% Top Sol 2oz TOPIC SCH (19:42)
[2018-10-15 20:00] VITALS: BP 120/79
[2018-10-15] MEDS: FAT EMULSION 20% IV SCH (20:12)
[2018-10-15] MEDS: TPN IV SCH (20:12)
[2018-10-15] MEDS: Hydromorphone 0.5mg/0.5ml inj IVP PRN (20:45)
[2018-10-16] VITALS: BP 121/76
[2018-10-16] MEDS: NovoLOG Insulin Flexpen SUBQ SCH ×5 (00:26→23:38)
[2018-10-16] MEDS: LORazepam 1mg tab SL PRN ×4 (00:38→20:19)
[2018-10-16] MEDS: Hydromorphone 0.5mg/0.5ml inj IVP PRN ×3 (02:23→23:17)
[2018-10-16] MEDS: NS w/KCl 40mEq 1,000 ML IV SCH ×2 (03:49→23:18)
[2018-10-16 04:00] VITALS: BP 127/78
[2018-10-16] MEDS: Piperacillin/Tazobactam 3.375 GM in NS 110 ML IVPB SCH ×3 (05:14→21:17)
[2018-10-16 05:22] LABS: BASOPHILS % (AUTO) 0.9 % (0.0-2.0); EOSINOPHILS % (AUTO) 4.2 % (0.0-3.0); HEMATOCRIT 34.8 % (37.0-47.0); LYMPHOCYTES % (AUTO) 8.1 % (20.0-45.0); MEAN CORPUSCULAR VOLUME 89 FL (80-99); MONOCYTES % (AUTO) 6.2 % (1.0-10.0); NEUTROPHILS % (AUTO) 80.6 % (45.0-75.0); PLATELET COUNT 262 K/UL (150-450); RED BLOOD COUNT 3.93 M/UL (4.20-5.40); RED CELL DISTRIBUTION WIDTH 12.7 % (11.6-14.8); WHITE BLOOD COUNT 9.7 K/UL (4.8-10.8)
[2018-10-16 06:20] LABS: ALANINE AMINOTRANSFERASE 117 U/L (12-78); ALBUMIN 2.2 G/DL (3.4-5.0); ALBUMIN/GLOBULIN RATIO 0.5 (1.0-2.7); ALKALINE PHOSPHATASE 189 U/L (46-116); ANION GAP 10 mmol/L (5-15); ASPARTATE AMINO TRANSFERASE 81 U/L (15-37); BILIRUBIN,TOTAL 1.1 MG/DL (0.2-1.0); BLOOD UREA NITROGEN 17 mg/dL (7-18); CALCIUM 9.3 MG/DL (8.5-10.1); CARBON DIOXIDE 24 MMOL/L (21-32); CHLORIDE 105 MMOL/L (98-107); CREATININE 0.7 MG/DL (0.55-1.30); POTASSIUM 4.1 MMOL/L (3.5-5.1); SODIUM 139 MMOL/L (136-145)
[2018-10-16 06:39] LABS: BILIRUBIN,DIRECT 0.5 MG/DL (0.0-0.3)
[2018-10-16] MEDS: PCA shift volume MISC SCH (07:00)
[2018-10-16 07:30] LABS: PHOSPHORUS 3.5 MG/DL (2.5-4.9)
[2018-10-16] MEDS ORDERED: PCA HYDROmorphone 1mg/ml 30 ML IV PRN (07:30)
--- NOTE | 2018-10-16 07:46 | General Progress Note ---
Progress Note Progress Note AVSS Continued cramping + incisional pain and no ileostomy output from Kock pouch catheter. Trace of green color in drainage bag ABdomen distended, mild diffuse tenderness, incision clean Kock pouch catheter appears to be in satisfactory position CBC, BMP ok LFTs up slightly Albumin 2.2 Urine 3100 Gastrostomy 215 K pouch ileo negative Imp. Ileus vs persistent SBO Plan: STAT portable KUB May need gastrograffin pouchogram to confirm proper position of indwelling catheter continue TPN, ambulation Vishnu Cuevas MD Oct 16, 2018 07:46
[2018-10-16 08:00] VITALS: BP 141/85
[2018-10-16] MEDS ORDERED: DiphenhydrAMINE 50mg/ml Inj IVP PRN (08:15)
[2018-10-16] MEDS: Flonase Nasal Inhaler 16gm NASAL SCH (09:21)
[2018-10-16] MEDS: Pantoprazole Inj IVP SCH (09:21)
[2018-10-16] MEDS: AZELASTINE NASAL SCH (09:22)
[2018-10-16] MEDS: HYDROmorphone 1mg/ml Carpuject SUBQ PRN ×3 (11:15→18:23)
--- NOTE | 2018-10-16 11:18 | Diagnostic Imaging Report ---
Indication: Abdominal pain Comparison: 09/30/2018 Single view of the abdomen obtained Findings: Mildly distended small bowel again demonstrated without significant change. A catheter projected over the lower pelvis noted and patient line is unknown continent ileostomy. Surgical skin emil demonstrated in a vertical fashion. IMPRESSION: Mild generalized distention of small bowel relatively nonspecific. Findings appear unchanged from last examination.
[2018-10-16] MEDS ORDERED: Isovue-300 100ml vial INJ PRN (11:45)
[2018-10-16 12:00] VITALS: BP 148/97
--- NOTE | 2018-10-16 14:09 | Diagnostic Imaging Report ---
Indication: No adenopathy, continent ileostomy. Study is done for evaluation of the ileostomy catheter/valve the relationship to the pouch. Technique: Continuous helical transaxial imaging of the pelvis was obtained from the iliac crest to the pubic symphysis. Coronal 2-D reformats were also obtained. Study obtained in a Siemens sensation [address] 3 sequences obtained. Noncontrast examination initially done. Contrast was then instilled into the ileostomy catheter. After 30 cc water-soluble contrast injection, initial images obtained. After 60 cc final images obtained. Total Dose length Product (DLP): 1154.[address] Dose Index Volume (CTDIvol): 14.36,14.36,14.36 mGy Comparison: None Findings: The ileostomy catheter is well situated within the pouch which resides within the pelvis. Just after the catheter enters the pouch, there is about a 5 cm long region along the proximal portion of the catheter that appears to have circumferential, partially radiodense soft tissue consistent with the surgically formed valve. There is another 5 cm distal portion of the catheter distal to the valve that shows no circumferential soft tissue surrounding it. The catheter tip is situated along the posterior margin of the pouch wall. The 2 latter sequences show contrast material within the pouch and within the ileostomy catheter. A small amount of particulate matter demonstrated (presumably stool) within the pouch. I note that on the initial preinjection CT, there is little to no fluid within the pouch demonstrated. There is a small amount of free fluid within the pelvis. This is not unexpected since patient has had recent surgery. Skin emil still noted in the anterior abdominal wall. Fluid and air filled distended small bowel are noted throughout the visualized part of the abdomen and pelvis. Findings are nonspecific on this exam as visualized. IMPRESSION: Continent ileostomy catheter injection and evaluation showing well situated catheter which appears patent. The surgically formed valve surrounds 5 cm of the proximal part of the catheter just as the catheter enters the pouch. The distal 5 cm or so of the catheter is not associated with the formed valve and appears to reside freely within the lumen of the pouch. The CT scanner at [facility] is accredited by the [employer] and the scans are performed using dose optimization techniques as appropriate to a performed exam including Automatic Exposure control.
[2018-10-16 16:00] VITALS: BP 123/80
[2018-10-16] MEDS ORDERED: PCA shift volume MISC SCH (19:00)
[2018-10-16 20:00] VITALS: BP 134/85
[2018-10-16] MEDS: Dyna-Hex 2% Top Sol 2oz TOPIC SCH (20:08)
[2018-10-16] MEDS: FAT EMULSION 20% IV SCH (20:09)
[2018-10-16] MEDS: TPN IV SCH (20:09)
[2018-10-17] VITALS: BP 134/95
[2018-10-17] MEDS: Hydromorphone 0.5mg/0.5ml inj IVP PRN (03:30)
[2018-10-17 04:00] VITALS: BP 126/81
[2018-10-17] MEDS: Piperacillin/Tazobactam 3.375 GM in NS 110 ML IVPB SCH ×2 (05:05→14:06)
[2018-10-17] MEDS: NovoLOG Insulin Flexpen SUBQ SCH ×3 (05:06→18:00)
[2018-10-17] MEDS: HYDROmorphone 1mg/ml Carpuject SUBQ PRN ×3 (06:34→21:16)
[2018-10-17 06:51] LABS: BASOPHILS % (AUTO) 1.4 % (0.0-2.0); EOSINOPHILS % (AUTO) 5.9 % (0.0-3.0); HEMATOCRIT 34.7 % (37.0-47.0); HEMOGLOBIN 11.6 G/DL (12.0-16.0); MEAN CORPUSCULAR VOLUME 90 FL (80-99); MONOCYTES % (AUTO) 7.3 % (1.0-10.0); NEUTROPHILS % (AUTO) 77.3 % (45.0-75.0); PLATELET COUNT 264 K/UL (150-450); RED BLOOD COUNT 3.87 M/UL (4.20-5.40); RED CELL DISTRIBUTION WIDTH 12.6 % (11.6-14.8); WHITE BLOOD COUNT 8.5 K/UL (4.8-10.8)
[2018-10-17] MEDS ORDERED: DiphenhydrAMINE 50mg/ml Inj IVP PRN (07:00)
[2018-10-17] MEDS ORDERED: Hydromorphone 0.5mg/0.5ml inj IVP PRN (07:00)
[2018-10-17] MEDS: PCA shift volume MISC SCH ×2 (07:00→20:02)
--- NOTE | 2018-10-17 07:23 | General Progress Note ---
Progress Note Progress Note AVSS Still having intermittent severe cramping. Abdomen still distended, incision clean Urine 2049 Ileo 215 Imp. Ileus s/p release post-op SBO Plan: continue npo, TPN Mg infusions Vishnu Cuevas MD Oct 17, 2018 07:22
[2018-10-17 07:25] LABS: ALANINE AMINOTRANSFERASE 235 U/L (12-78); ALBUMIN 2.2 G/DL (3.4-5.0); ALBUMIN/GLOBULIN RATIO 0.5 (1.0-2.7); ALKALINE PHOSPHATASE 206 U/L (46-116); ANION GAP 5 mmol/L (5-15); ASPARTATE AMINO TRANSFERASE 149 U/L (15-37); BILIRUBIN,TOTAL 0.9 MG/DL (0.2-1.0); BLOOD UREA NITROGEN 13 mg/dL (7-18); CALCIUM 8.6 MG/DL (8.5-10.1); CARBON DIOXIDE 29 MMOL/L (21-32); CHLORIDE 103 MMOL/L (98-107); CREATININE 0.7 MG/DL (0.55-1.30); POTASSIUM 4.6 MMOL/L (3.5-5.1); SODIUM 137 MMOL/L (136-145)
[2018-10-17] MEDS ORDERED: PCA HYDROmorphone 1mg/ml 30 ML IV PRN (07:30)
[2018-10-17 08:00] VITALS: BP 127/79
[2018-10-17] MEDS: Pantoprazole Inj IVP SCH (08:54)
[2018-10-17] MEDS: Flonase Nasal Inhaler 16gm NASAL SCH (09:00)
[2018-10-17] MEDS: AZELASTINE NASAL SCH (09:00)
[2018-10-17 12:00] VITALS: BP 138/84
[2018-10-17] MEDS: LORazepam 1mg tab SL PRN (15:18)
[2018-10-17] MEDS ORDERED: NS Irrig 1000ml ONE (15:42)
[2018-10-17] MEDS ORDERED: Tubing IV Secondary IV ONE (15:42)
[2018-10-17 16:00] VITALS: BP 132/84
[2018-10-17 20:00] VITALS: BP 140/87
[2018-10-17] MEDS: Dyna-Hex 2% Top Sol 2oz TOPIC SCH (20:27)
[2018-10-17] MEDS: TPN IV SCH (20:27)
[2018-10-17] MEDS: FAT EMULSION 20% IV SCH (20:27)
[2018-10-17] MEDS: NS w/KCl 40mEq 1,000 ML IV SCH (20:32)
[2018-10-18] MEDS: NovoLOG Insulin Flexpen SUBQ SCH ×4 (00:15→18:49)
[2018-10-18] MEDS: LORazepam 1mg tab SL PRN ×2 (00:23→15:19)
[2018-10-18 00:55] VITALS: BP 130/83
[2018-10-18] MEDS: HYDROmorphone 1mg/ml Carpuject SUBQ PRN ×4 (01:40→18:56)
[2018-10-18 04:00] VITALS: BP 129/78
[2018-10-18 05:13] LABS: BASOPHILS % (AUTO) 1.1 % (0.0-2.0); EOSINOPHILS % (AUTO) 7.1 % (0.0-3.0); HEMATOCRIT 33.4 % (37.0-47.0); HEMOGLOBIN 11.2 G/DL (12.0-16.0); LYMPHOCYTES % (AUTO) 10.1 % (20.0-45.0); MEAN CORPUSCULAR VOLUME 89 FL (80-99); MONOCYTES % (AUTO) 9.8 % (1.0-10.0); NEUTROPHILS % (AUTO) 71.8 % (45.0-75.0); PLATELET COUNT 241 K/UL (150-450); RED BLOOD COUNT 3.75 M/UL (4.20-5.40); RED CELL DISTRIBUTION WIDTH 12.7 % (11.6-14.8); WHITE BLOOD COUNT 8.7 K/UL (4.8-10.8)
[2018-10-18 05:30] LABS: ALANINE AMINOTRANSFERASE 194 U/L (12-78); ALBUMIN 2.2 G/DL (3.4-5.0); ALBUMIN/GLOBULIN RATIO 0.5 (1.0-2.7); ALKALINE PHOSPHATASE 199 U/L (46-116); ANION GAP 6 mmol/L (5-15); ASPARTATE AMINO TRANSFERASE 84 U/L (15-37); BILIRUBIN,TOTAL 0.7 MG/DL (0.2-1.0); BLOOD UREA NITROGEN 14 mg/dL (7-18); CALCIUM 8.5 MG/DL (8.5-10.1); CARBON DIOXIDE 27 MMOL/L (21-32); CHLORIDE 104 MMOL/L (98-107); CREATININE 0.6 MG/DL (0.55-1.30); POTASSIUM 4.3 MMOL/L (3.5-5.1); SODIUM 137 MMOL/L (136-145)
[2018-10-18] MEDS: PCA shift volume MISC SCH ×2 (07:29→19:31)
[2018-10-18 08:00] VITALS: BP 123/85
[2018-10-18] MEDS ORDERED: PCA HYDROmorphone 1mg/ml 30 ML IV PRN (08:30)
[2018-10-18] MEDS ORDERED: DiphenhydrAMINE 50mg/ml Inj IVP PRN (08:30)
[2018-10-18] MEDS ORDERED: Ketorolac 30mg Inj IV PRN (08:30)
[2018-10-18] MEDS ORDERED: Hydromorphone 0.5mg/0.5ml inj IVP PRN (08:30)
[2018-10-18] MEDS: Flonase Nasal Inhaler 16gm NASAL SCH (09:00)
[2018-10-18] MEDS: AZELASTINE NASAL SCH (09:00)
--- NOTE | 2018-10-18 09:00 | General Progress Note ---
Progress Note Progress Note AVSS Having continuing persistent cramping and now no output from Kock pouch ileo catheter past 24 hours (prior day 215cc). c/o burping despite gastrostomy to drainage Abdomen remains distended, incision clean healing well Urine 3225 Gastrostomy 225 bilious Kock pouch ileo scant enteric fluid CBC, MBP - okay Mg 1.9 LFTs down Albumin still 2.2 despite prolonged TPN Imp. Persistent ileus post-op release high grade partial SBO with segmental small bowel resection Plan: continue npo, gastrostomy to drainage ? place to suction?, TPN, Mg infusion Dr. El will evaluate from Vishnu Srivastava MD Oct 18, 2018 09:00
[2018-10-18] MEDS: Pantoprazole Inj IVP SCH (09:22)
[2018-10-18] MEDS: Hyoscyamine 0.125mg tab ORAL PRN (09:44)
[2018-10-18 12:00] VITALS: BP 142/89
--- NOTE | 2018-10-18 13:18 | GI Initial Consult Note ---
History of Present Illness General Date patient seen: Oct 18, 2018 Time patient seen: 13:04 Referring physician: LOC HUMPHRIES Reason for Consultation: Abdominal distention Present Illness HPI 68 year old female patient s/p Jasmine pouch revisions approximately 3 weeks ago returns for surgery to release persistent high grade partial SBO. GI consulted for persistent abdominal distention and no ileo output. Patient was seen, awake alert and oriented x4. Stated that she is been having severe abdominal pain, abdominal spasms and cramping ever since her surgery last week. Patient currently running TPN, has been n.p.o. except for ice chips. According to the patient, he has not noticed any gas production and in her ileostomy. Has complaint of excessive burping. Labs reviewed, patient presents with anemia, transaminitis with elevated alkaline phosphatase. Abdomen is soft, nontender. Home Meds Reported Medications Fluticasone Propionate (Flonase Allergy Relief) 9.9 Ml Vici.susp, 1 SPR NS DAILY 10/02/18 Azelastine Hcl (AZELASTINE HCL) 137 Mcg/0.137 Ml Vici.pump, 2 SPRAYS NS DAILY 10/02/18 Tizanidine Hcl* (ZANAFLEX*) 4 Mg Tablet, 4 MG ORAL THREE TIMES A DAY, #90 TAB 0 Refills 09/24/18 Ibuprofen* (ADVIL*) 200 Mg Tablet, 200 MG ORAL Q6H, TAB 09/24/18 Budesonide, Micronized (BUDESONIDE) 0.5 Gm Powder, 0.5 GM MC, GM 09/24/18 Carisoprodol* (SOMA*) 350 Mg Tablet, 350 MG PO Q6H, TAB 09/24/18 Ascorbic Acid* (VITAMIN C*) 500 Mg Tablet, 500 MG ORAL DAILY, #30 TAB 0 Refills 06/12/17 Lactobacillus Combo No.11 (PROBIOTIC) 1 Each Cap.sprink, 1 EACH PO DAILY, CAP 04/25/17 [place]-3 Fatty Acids/Fish Oil (OMEGA 3 FISH OIL SOFTGEL) 1 Each Capsule.dr, 1 EACH PO DAILY, CAP 10/12/16 Med list reviewed/reconciled: Yes Allergies: Coded Allergies: METRONIDAZOLE (Verified Allergy, Mild, 09/18/18) HEADACHE, DIZZINESS Uncoded Allergies: hay fever (Allergy, Unknown, 09/24/16) Patient History Social History: Denies: smoking, alcohol use, drug use, other Review of Systems All Other Systems: negative except mentioned in HPI Physical Exam Vital Signs Date Time Temp Pulse Resp B/P (MAP) Pulse Ox O2 Delivery O2 Flow Rate FiO2 10/14/18 08:00 97.9 80 18 114/68 (83) 98 10/14/18 09:00 Room Air Sp02 EP Interpretation: reviewed, normal Labs Laboratory Tests Test 10/18/18 05:05 White Blood Count 8.7 K/UL (4.8-10.8) Red Blood Count 3.75 M/UL (4.20-5.40) L Hemoglobin 11.2 G/DL (12.0-16.0) L Hematocrit 33.4 % (37.0-47.0) L Mean Corpuscular Volume 89 FL (80-99) Mean Corpuscular Hemoglobin 29.9 PG (27.0-31.0) Mean Corpuscular Hemoglobin Concent 33.6 G/DL (32.0-36.0) Red Cell Distribution Width 12.7 % (11.6-14.8) Platelet Count 241 K/UL (150-450) Mean Platelet Volume 8.6 FL (6.5-10.1) Neutrophils (%) (Auto) 71.8 % (45.0-75.0) Lymphocytes (%) (Auto) 10.1 % (20.0-45.0) L Monocytes (%) (Auto) 9.8 % (1.0-10.0) Eosinophils (%) (Auto) 7.1 % (0.0-3.0) H Basophils (%) (Auto) 1.1 % (0.0-2.0) Sodium Level 137 MMOL/L (136-145) Potassium Level 4.3 MMOL/L (3.5-5.1) Chloride Level 104 MMOL/L (98-107) Carbon Dioxide Level 27 MMOL/L (21-32) Anion Gap 6 mmol/L (5-15) Blood Urea Nitrogen 14 mg/dL (7-18) Creatinine 0.6 MG/DL (0.55-1.30) Estimat Glomerular Filtration Rate > 60 mL/min (>60) Glucose Level 119 MG/DL (74-106) H Calcium Level 8.5 MG/DL (8.5-10.1) Magnesium Level 1.9 MG/DL (1.8-2.4) Total Bilirubin 0.7 MG/DL (0.2-1.0) Aspartate Amino Transf (AST/SGOT) 84 U/L (15-37) H Alanine Aminotransferase (ALT/SGPT) 194 U/L (12-78) H Alkaline Phosphatase 199 U/L (46-116) H Total Protein 6.5 G/DL (6.4-8.2) Albumin 2.2 G/DL (3.4-5.0) L Globulin 4.3 g/dL Albumin/Globulin Ratio 0.5 (1.0-2.7) L General Appearance: well appearing, no apparent distress, alert Head: normocephalic EENT: PERRL/EOMI, normal ENT inspection Neck: supple Respiratory: normal breath sounds, no respiratory distress Cardiovascular: normal rate Gastrointestinal: normal inspection, non tender, soft, normal bowel sounds, non -distended, gt, other - Ileostomy catheter Rectal: deferred Genitourinary: no CVA tenderness Musculoskeletal: normal inspection, back normal Neurologic: normal inspection, alert, oriented x3, responsive Psychiatric: normal inspection, judgement/insight normal, memory normal Skin: normal inspection, normal color, no rash, warm/dry, palpation normal, well hydrated Lymphatic: normal inspection, no adenopathy Current Medications Current Medications Medications (Trade) Dose Ordered Sig/[place] Route PRN Reason Start Time Stop Time Status Last Admin Dose Admin Acetaminophen/ Butalbital/ Caffeine (Fioricet) 1 tab Q4H PRN ORAL For Headache 09/28/18 18:30 10/28/18 18:29 Carisoprodol (Soma) 350 mg TIDPRN PRN ORAL MUSCLE SPASM 10/15/18 16:00 11/14/18 15:59 10/18/18 05:21 Chlorhexidine Gluconate (Mohini-Hex 2%) 1 applic DAILY@2000 TOPIC 09/24/18 20:00 10/24/18 19:59 10/17/18 20:27 Dextrose 1,000 ml @ 0 mls/hr Q24H PRN IV PN interrupted or unavailable 09/30/18 20:00 10/30/18 19:59 Dextrose (Dextrose 50%) 25 ml Q30M PRN IV Hypoglycemia 09/30/18 12:15 10/30/18 12:14 Dextrose (Dextrose 50%) 50 ml Q30M PRN IV Hypoglycemia 09/30/18 12:15 10/30/18 12:14 Diphenhydramine HCl (Benadryl) 25 mg Q6H PRN IVP Itching/Pruritis 10/18/18 08:30 10/20/18 08:29 Fat Emulsion Intravenous 216 ml/Amino Acids/ Electrolytes/ Dextrose 1,656 ml @ 69 mls/hr Q24H IV 09/30/18 20:00 10/30/18 19:59 10/17/18 20:27 Fluticasone Propionate (Flonase) 1 spray DAILY NASAL 10/02/18 10:00 11/01/18 09:59 10/16/18 09:21 Hydromorphone HCl 30 ml @ 0 mls/hr MAINTENANCE MECHANIC ENGINE protocol PRN IV For Pain 10/18/18 08:30 10/20/18 08:29 Hydromorphone HCl (Dilaudid) 0.5 mg Q4H PRN IVP Moderate Pain (Pain Scale 4-6) 10/18/18 08:30 10/20/18 08:29 Hydromorphone HCl (Dilaudid) 1 mg q3h PRN SUBQ Severe Pain (Pain Scale 7-10) 10/18/18 09:30 10/20/18 09:29 Hyoscyamine Sulfate (Levsin) 0.125 mg Q4H PRN ORAL Cramping/indigestion 09/27/18 15:00 10/27/18 14:59 10/18/18 09:44 Insulin Aspart (NovoLOG) Q6HR SUBQ 09/30/18 00:00 10/30/18 00:00 10/18/18 06:04 Ketorolac Tromethamine (Toradol 30mg) 30 mg Q6H PRN IV Severe Breakthru Pain (>7) 10/18/18 08:30 Lorazepam (Ativan) 1 mg Q4H PRN SL Muscle Spasm 10/18/18 08:30 10/20/18 08:29 Miscellaneous Medication (MAINTENANCE MECHANIC ENGINE shift volume) 1 ea Q12HR@0700,1900 MISC 10/18/18 19:00 10/20/18 18:59 Ondansetron HCl (Zofran) 4 mg Q4H PRN IVP Nausea & Vomiting 09/25/18 09:45 10/25/18 09:44 10/16/18 13:35 Pantoprazole (Protonix) 40 mg DAILY IVP 10/15/18 09:00 11/14/18 08:59 10/18/18 09:22 Patient Own Medication (Patient's Own Med) 4 ea DAILY NASAL 10/02/18 10:00 11/01/18 09:59 10/16/18 09:22 Phytonadione (Vitamin K) 10 mg ONCE A WEEK SUBQ 10/07/18 09:00 11/06/18 08:59 10/14/18 09:18 Sodium Chloride 1,000 ml @ 50 mls/hr Q20H IV 10/04/18 11:30 11/03/18 11:29 10/17/18 20:32 GI: Plan Problems: (1) Small bowel obstruction (2) Transaminitis (3) Abdominal pain (4) Ulcerative colitis (5) Kock Pouch bleeding (6) MALFUNCTIONING JASMINE POUCH Plan Postoperative ileus MRCP ordered to rule out primary sclerosing cholangitis Maintain n.p.o., okay for gastrostomy to gravity. No GI intervention at this time, await full return of bowel function Serial imaging as needed IV fluid hydration plus electrolyte correction PRN transfusions PPI Follow labs Discussed with Dr. El. Thank you for this patient referral, we will follow. The patient was seen and examined at bedside and all new and available data was reviewed in the patients chart. I agree with the above findings, impression and plan. (Patient seen earlier today. Signature stamp does not reflect patient encounter time.). - MD Stefany Peña,[facility] NURSE SPECIALIST Oct 18, 2018 13:18
[2018-10-18] MEDS: NS w/KCl 40mEq 1,000 ML IV SCH ×2 (15:30→21:02)
--- NOTE | 2018-10-18 18:27 | Diagnostic Imaging Report ---
EXAM: MR Abdomen Without Intravenous Contrast CLINICAL HISTORY: Abdominal PAIN TECHNIQUE: Multiplanar magnetic resonance images of the abdomen without intravenous contrast. COMPARISON: CT 10/07/2018 FINDINGS: Lung bases: Unremarkable. No mass. No consolidation. Liver: Unremarkable. Gallbladder and bile ducts: Gallbladder distention. No gallstones or biliary dilatation. Pancreas: Unremarkable. No ductal dilation. Spleen: Unremarkable. No splenomegaly. Adrenals: Unremarkable. No mass. Kidneys and ureters: Unremarkable. No hydronephrosis. Stomach and bowel: Unremarkable. No obstruction. Intraperitoneal space: Trace ascites. Soft tissues: Postsurgical changes are present in the ventral midline abdominal wall. Vasculature: Unremarkable. No abdominal aortic aneurysm. Lymph nodes: Unremarkable. No enlarged lymph nodes. Tubes, lines and devices: Percutaneous gastrostomy tube terminates in the decompressed stomach. IMPRESSION: Gallbladder distention. No gallstones or biliary dilatation. Trace bilateral pleural effusions.
[2018-10-18 20:00] VITALS: BP 123/84
[2018-10-18] MEDS: FAT EMULSION 20% IV SCH (20:58)
[2018-10-18] MEDS: TPN IV SCH (20:58)
[2018-10-18] MEDS: Dyna-Hex 2% Top Sol 2oz TOPIC SCH (20:59)
[2018-10-19] VITALS: BP 129/79
[2018-10-19] MEDS: NovoLOG Insulin Flexpen SUBQ SCH ×5 (00:11→23:57)
[2018-10-19] MEDS: LORazepam 1mg tab SL PRN ×3 (01:07→14:37)
[2018-10-19 04:00] VITALS: BP 123/75
[2018-10-19 06:58] LABS: ALANINE AMINOTRANSFERASE 206 U/L (12-78); ALBUMIN 2.3 G/DL (3.4-5.0); ALBUMIN/GLOBULIN RATIO 0.5 (1.0-2.7); ALKALINE PHOSPHATASE 220 U/L (46-116); ANION GAP 7 mmol/L (5-15); ASPARTATE AMINO TRANSFERASE 80 U/L (15-37); BILIRUBIN,TOTAL 0.8 MG/DL (0.2-1.0); BLOOD UREA NITROGEN 17 mg/dL (7-18); CALCIUM 9.1 MG/DL (8.5-10.1); CARBON DIOXIDE 27 MMOL/L (21-32); CHLORIDE 103 MMOL/L (98-107); CREATININE 0.7 MG/DL (0.55-1.30); POTASSIUM 4.3 MMOL/L (3.5-5.1); SODIUM 137 MMOL/L (136-145)
[2018-10-19] MEDS: PCA shift volume MISC SCH ×2 (07:07→19:15)
[2018-10-19 07:11] LABS: BASOPHILS % (AUTO) 1.1 % (0.0-2.0); HEMATOCRIT 33.4 % (37.0-47.0); HEMOGLOBIN 11.1 G/DL (12.0-16.0); LYMPHOCYTES % (AUTO) 12.2 % (20.0-45.0); MEAN CORPUSCULAR VOLUME 90 FL (80-99); MONOCYTES % (AUTO) 9.7 % (1.0-10.0); PLATELET COUNT 256 K/UL (150-450); WHITE BLOOD COUNT 8.3 K/UL (4.8-10.8)
[2018-10-19] MEDS ORDERED: NS Irrig 1000ml ONE (07:44)
[2018-10-19] MEDS ORDERED: Tubing IV Secondary IV ONE (07:44)
[2018-10-19 08:00] VITALS: BP 128/81
[2018-10-19] MEDS: Hyoscyamine 0.125mg tab ORAL PRN ×4 (08:03→23:57)
[2018-10-19] MEDS: Pantoprazole Inj IVP SCH (08:33)
[2018-10-19] MEDS: Flonase Nasal Inhaler 16gm NASAL SCH (08:33)
[2018-10-19] MEDS: AZELASTINE NASAL SCH (08:33)
--- NOTE | 2018-10-19 09:28 | General Progress Note ---
Progress Note Progress Note AVSS Having more time without cramping but not resolved. MRI of abdomen negative for obstruction ABdomen soft, still mildly distended, incision clean Urine 2650 voiding well Gastrostomy 130 Kock pouch ileo scant but this AM already 100cc in drainage bag Labs okay with albumin up to 2.3 Imp. slowly resolving ileus Plan; continue npo, TPN Vishnu Cuevas MD Oct 19, 2018 09:28
[2018-10-19] MEDS ORDERED: DiphenhydrAMINE 50mg/ml Inj IVP PRN (09:30)
[2018-10-19] MEDS ORDERED: Rate Change PCA 1 Each MISC PRN (09:30)
[2018-10-19] MEDS ORDERED: Hydromorphone 0.5mg/0.5ml inj IVP PRN (09:30)
[2018-10-19] MEDS ORDERED: PCA HYDROmorphone 1mg/ml 30 ML IV PRN (09:30)
[2018-10-19 12:00] VITALS: BP 127/80
[2018-10-19] MEDS: HYDROmorphone 1mg/ml Carpuject SUBQ PRN ×2 (14:07→18:52)
[2018-10-19 16:00] VITALS: BP 128/82
--- NOTE | 2018-10-19 16:27 | GI Progress Note ---
Assessment/Plan Problems: (1) MALFUNCTIONING JASMINE POUCH (2) Abdominal pain ICD Codes: R10.9 - Unspecified abdominal pain SNOMED: 66963032 (3) Transaminitis ICD Codes: R74.0 - Nonspecific elevation of levels of transaminase and lactic acid dehydrogenase [LDH] SNOMED: 501440714, 636927079 (4) MALFUNCTIONING JASMINE POUCH Status: unchanged Status Narrative Discussed with Dr. El Assessment/Plan Postoperative ileus MRCP ordered to rule out primary sclerosing cholangitis >>negative Maintain n.p.o., okay for gastrostomy to gravity. No GI intervention at this time, await full return of bowel function Serial imaging as needed IV fluid hydration plus electrolyte correction PRN transfusions PPI Follow labs The patient was seen and examined at bedside and all new and available data was reviewed in the patients chart. I agree with the above findings, impression and plan. (Patient seen earlier today. Signature stamp does not reflect patient encounter time.). - Clarence El MD Subjective Subjective Patient complains of abdominal pain and cramping Stating that Dilaudid Had minimal effects Objective Last 24 Hour Vital Signs Date Time Temp Pulse Resp B/P (MAP) Pulse Ox O2 Delivery O2 Flow Rate FiO2 10/19/18 16:00 97.2 85 19 128/82 (97) 100 10/19/18 16:00 18 10/19/18 14:37 98.2 10/19/18 12:00 18 10/19/18 12:00 98.2 72 18 127/80 (96) 100 10/19/18 09:00 Room Air 10/19/18 08:12 18 10/19/18 08:00 98.1 74 18 128/81 (97) 100 10/19/18 07:34 98.4 10/19/18 04:00 18 10/19/18 04:00 98.4 81 18 123/75 (91) 95 10/19/18 00:00 18 10/19/18 00:00 98.1 84 18 129/79 (96) 95 10/18/18 21:00 Room Air 10/18/18 20:30 18 10/18/18 20:00 98.8 90 18 123/84 (97) 95 Intake and Output 10/18/18 10/19/18 19:00 07:00 Intake Total 1178 ml 1548 ml Output Total 1110 ml Balance 1178 ml 438 ml Intake Oral 120 ml IV Total 1178 ml 1428 ml Output Urine Total 1100 ml Other 10 ml Laboratory Tests Test 10/19/18 04:45 White Blood Count 8.3 K/UL (4.8-10.8) Red Blood Count 3.70 M/UL (4.20-5.40) L Hemoglobin 11.1 G/DL (12.0-16.0) L Hematocrit 33.4 % (37.0-47.0) L Mean Corpuscular Volume 90 FL (80-99) Mean Corpuscular Hemoglobin 30.1 PG (27.0-31.0) Mean Corpuscular Hemoglobin Concent 33.3 G/DL (32.0-36.0) Red Cell Distribution Width 13.0 % (11.6-14.8) Platelet Count 256 K/UL (150-450) Mean Platelet Volume 8.3 FL (6.5-10.1) Neutrophils (%) (Auto) 70.0 % (45.0-75.0) Lymphocytes (%) (Auto) 12.2 % (20.0-45.0) L Monocytes (%) (Auto) 9.7 % (1.0-10.0) Eosinophils (%) (Auto) 7.0 % (0.0-3.0) H Basophils (%) (Auto) 1.1 % (0.0-2.0) Sodium Level 137 MMOL/L (136-145) Potassium Level 4.3 MMOL/L (3.5-5.1) Chloride Level 103 MMOL/L (98-107) Carbon Dioxide Level 27 MMOL/L (21-32) Anion Gap 7 mmol/L (5-15) Blood Urea Nitrogen 17 mg/dL (7-18) Creatinine 0.7 MG/DL (0.55-1.30) Estimat Glomerular Filtration Rate > 60 mL/min (>60) Glucose Level 111 MG/DL (74-106) H Calcium Level 9.1 MG/DL (8.5-10.1) Total Bilirubin 0.8 MG/DL (0.2-1.0) Aspartate Amino Transf (AST/SGOT) 80 U/L (15-37) H Alanine Aminotransferase (ALT/SGPT) 206 U/L (12-78) H Alkaline Phosphatase 220 U/L (46-116) H Total Protein 6.5 G/DL (6.4-8.2) Albumin 2.3 G/DL (3.4-5.0) L Globulin 4.2 g/dL Albumin/Globulin Ratio 0.5 (1.0-2.7) L CA 19-9 Antigen Pending Height (Feet): 5 Height (Inches): 8.00 Weight (Pounds): 125 General Appearance: WD/WN, no apparent distress, alert Cardiovascular: normal rate Respiratory/Chest: normal breath sounds, no respiratory distress Abdominal Exam: normal bowel sounds, non tender, soft, other - GT, ileostomy catheter Extremities: normal range of motion, non-tender Renetta Mccall NP Oct 19, 2018 16:27
[2018-10-19] MEDS: NS w/KCl 40mEq 1,000 ML IV SCH (17:24)
[2018-10-19 20:00] VITALS: BP 125/84
[2018-10-19] MEDS: Dyna-Hex 2% Top Sol 2oz TOPIC SCH (20:00)
[2018-10-19] MEDS: FAT EMULSION 20% IV SCH (21:06)
[2018-10-19] MEDS: TPN IV SCH (21:06)
[2018-10-20] VITALS: BP 126/81
[2018-10-20] MEDS: LORazepam 1mg tab SL PRN (01:08)
[2018-10-20] MEDS: HYDROmorphone 1mg/ml Carpuject SUBQ PRN ×6 (02:11→23:33)
[2018-10-20 04:00] VITALS: BP 128/84
[2018-10-20] MEDS: NovoLOG Insulin Flexpen SUBQ SCH ×3 (06:05→17:12)
[2018-10-20 06:54] LABS: ANION GAP 9 mmol/L (5-15); BLOOD UREA NITROGEN 17 mg/dL (7-18); CALCIUM 9.3 MG/DL (8.5-10.1); CARBON DIOXIDE 25 MMOL/L (21-32); CHLORIDE 104 MMOL/L (98-107); CREATININE 0.6 MG/DL (0.55-1.30); PHOSPHORUS 3.8 MG/DL (2.5-4.9); POTASSIUM 4.4 MMOL/L (3.5-5.1); SODIUM 138 MMOL/L (136-145)
[2018-10-20 07:06] LABS: BASOPHILS % (AUTO) 1.1 % (0.0-2.0); EOSINOPHILS % (AUTO) 7.4 % (0.0-3.0); HEMATOCRIT 33.9 % (37.0-47.0); HEMOGLOBIN 11.5 G/DL (12.0-16.0); LYMPHOCYTES % (AUTO) 12.4 % (20.0-45.0); MEAN CORPUSCULAR VOLUME 90 FL (80-99); MONOCYTES % (AUTO) 8.9 % (1.0-10.0); NEUTROPHILS % (AUTO) 70.3 % (45.0-75.0); PLATELET COUNT 258 K/UL (150-450); RED BLOOD COUNT 3.78 M/UL (4.20-5.40); RED CELL DISTRIBUTION WIDTH 12.9 % (11.6-14.8); WHITE BLOOD COUNT 9.1 K/UL (4.8-10.8)
[2018-10-20] MEDS: PCA shift volume MISC SCH ×2 (07:15→19:12)
[2018-10-20] MEDS: NS w/KCl 40mEq 1,000 ML IV SCH (07:30)
[2018-10-20 08:00] VITALS: BP 134/77
[2018-10-20] MEDS: AZELASTINE NASAL SCH (08:32)
[2018-10-20] MEDS: Pantoprazole Inj IVP SCH (08:32)
[2018-10-20] MEDS: Flonase Nasal Inhaler 16gm NASAL SCH (08:32)
--- NOTE | 2018-10-20 10:03 | General Progress Note ---
Progress Note Progress Note AVSS Intermittent (3x/day) severe cramps requires Dilaudid, otherwise feels okay and ambulates freely. Now also c/o some pain with voiding Abdomen still mildly distended, incision clean Urine 2400 Kock pouch ileo: 220 day shift, nil overnight Gastrostomy only 215cc/24 hours labs okay except Mg 1.7 Imp. Gradually resolving ileus/SBO Plan: Trial of clear liquid diet + gatorade Gastrostomy 3;3 protocol Mg infusion U/A and urine C&S Simethicone 80mg po q4h prn Vishnu Cuevas MD Oct 20, 2018 10:03
[2018-10-20] MEDS ORDERED: DiphenhydrAMINE 50mg/ml Inj IVP PRN (10:30)
[2018-10-20] MEDS ORDERED: PCA HYDROmorphone 1mg/ml 30 ML IV PRN (10:30)
[2018-10-20] MEDS ORDERED: Rate Change PCA 1 Each MISC PRN (10:30)
[2018-10-20] MEDS ORDERED: Hydromorphone 0.5mg/0.5ml inj IVP PRN (10:30)
[2018-10-20] MEDS ORDERED: LORazepam 1mg tab SL PRN (10:30)
[2018-10-20 10:31] LABS: APPEARANCE,URINE CLEAR; BILIRUBIN, URINE NEGATIVE (NEGATIVE); COLOR,URINE PALE YELLOW; GLUCOSE, URINE (UA) NEGATIVE (NEGATIVE); KETONES,URINE NEGATIVE (NEGATIVE); LEUKOCYTE ESTERASE ,URINE 1+ (NEGATIVE); NITRITE,URINE NEGATIVE (NEGATIVE); PH,URINE 7 (4.5-8.0); PROTEIN,URINE NEGATIVE (NEGATIVE); UROBILINOGEN,URINE NORMAL MG/DL (0.0-1.0)
[2018-10-20] MEDS ORDERED: NS w/KCl 40mEq 1,000 ML IV SCH (11:00)
[2018-10-20 12:00] VITALS: BP 151/82
[2018-10-20] MEDS: Simethicone 80mg tab ORAL PRN ×3 (12:41→22:00)
[2018-10-20 16:00] VITALS: BP 116/78
--- NOTE | 2018-10-20 16:31 | GI Progress Note ---
Assessment/Plan Problems: (1) MALFUNCTIONING JASMINE POUCH (2) Abdominal pain ICD Codes: R10.9 - Unspecified abdominal pain SNOMED: 41084301 (3) Transaminitis ICD Codes: R74.0 - Nonspecific elevation of levels of transaminase and lactic acid dehydrogenase [LDH] SNOMED: 555153576, 722494113 (4) MALFUNCTIONING JASMINE POUCH Status: unchanged Status Narrative Discussed with Dr. El. Assessment/Plan Postoperative ileus MRCP ordered to rule out primary sclerosing cholangitis >>negative Maintain n.p.o., okay for gastrostomy to gravity. No GI intervention at this time, await full return of bowel function adv diet per primary Serial imaging as needed IV fluid hydration plus electrolyte correction PRN transfusions PPI Follow labs The patient was seen and examined at bedside and all new and available data was reviewed in the patients chart. I agree with the above findings, impression and plan. (Patient seen earlier today. Signature stamp does not reflect patient encounter time.). - Clarence El MD Subjective Subjective Patient complains of abdominal pain and cramping Stating that Dilaudid Had minimal effects Objective Last 24 Hour Vital Signs Date Time Temp Pulse Resp B/P (MAP) Pulse Ox O2 Delivery O2 Flow Rate FiO2 10/20/18 16:22 18 10/20/18 12:29 98.7 10/20/18 12:00 18 10/20/18 12:00 98.4 88 18 151/82 (105) 99 10/20/18 09:06 Room Air 10/20/18 08:37 98.7 10/20/18 08:00 18 10/20/18 08:00 98.5 77 18 134/77 (96) 99 10/20/18 07:58 98.7 10/20/18 04:00 18 10/20/18 04:00 98.7 76 18 128/84 (99) 97 10/20/18 00:00 18 10/20/18 00:00 98.9 75 18 126/81 (96) 98 10/19/18 21:00 Room Air 10/19/18 20:00 99.5 79 18 125/84 (98) 99 10/19/18 20:00 18 Intake and Output 10/19/18 10/20/18 19:00 07:00 Intake Total 1547 ml 1409 ml Output Total 1490 ml 2445 ml Balance 57 ml -1036 ml IV Total 1547 ml 1409 ml Output Urine Total 1100 ml 2400 ml Other 390 ml 45 ml # Voids 4 4 Laboratory Tests Test 10/20/18 05:15 10/20/18 10:00 White Blood Count 9.1 K/UL (4.8-10.8) Red Blood Count 3.78 M/UL (4.20-5.40) L Hemoglobin 11.5 G/DL (12.0-16.0) L Hematocrit 33.9 % (37.0-47.0) L Mean Corpuscular Volume 90 FL (80-99) Mean Corpuscular Hemoglobin 30.4 PG (27.0-31.0) Mean Corpuscular Hemoglobin Concent 33.9 G/DL (32.0-36.0) Red Cell Distribution Width 12.9 % (11.6-14.8) Platelet Count 258 K/UL (150-450) Mean Platelet Volume 8.6 FL (6.5-10.1) Neutrophils (%) (Auto) 70.3 % (45.0-75.0) Lymphocytes (%) (Auto) 12.4 % (20.0-45.0) L Monocytes (%) (Auto) 8.9 % (1.0-10.0) Eosinophils (%) (Auto) 7.4 % (0.0-3.0) H Basophils (%) (Auto) 1.1 % (0.0-2.0) Sodium Level 138 MMOL/L (136-145) Potassium Level 4.4 MMOL/L (3.5-5.1) Chloride Level 104 MMOL/L (98-107) Carbon Dioxide Level 25 MMOL/L (21-32) Anion Gap 9 mmol/L (5-15) Blood Urea Nitrogen 17 mg/dL (7-18) Creatinine 0.6 MG/DL (0.55-1.30) Estimat Glomerular Filtration Rate > 60 mL/min (>60) Glucose Level 121 MG/DL (74-106) H Calcium Level 9.3 MG/DL (8.5-10.1) Phosphorus Level 3.8 MG/DL (2.5-4.9) Magnesium Level 1.7 MG/DL (1.8-2.4) L Urine Color Pale yellow Urine Appearance Clear Urine pH 7 (4.5-8.0) Urine Specific [place] 1.010 (1.005-1.035) Urine Protein Negative (NEGATIVE) Urine Glucose (UA) Negative (NEGATIVE) Urine Ketones Negative (NEGATIVE) Urine Blood Negative (NEGATIVE) Urine Nitrite Negative (NEGATIVE) Urine Bilirubin Negative (NEGATIVE) Urine Urobilinogen Normal MG/DL (0.0-1.0) Urine Leukocyte Esterase 1+ (NEGATIVE) H Urine RBC 0 /HPF (0 - 2) Urine WBC 0-2 /HPF (0 - 2) Urine Squamous Epithelial Cells Occasional /LPF Urine Bacteria Few /HPF (NONE) Height (Feet): 5 Height (Inches): 8.00 Weight (Pounds): 125 General Appearance: WD/WN, no apparent distress, alert Cardiovascular: normal rate Respiratory/Chest: normal breath sounds, no respiratory distress Abdominal Exam: normal bowel sounds, non tender, soft Extremities: normal range of motion, non-tender Renetta Mccall NP Oct 20, 2018 16:31
[2018-10-20 20:00] VITALS: BP 136/79
[2018-10-20] MEDS: FAT EMULSION 20% IV SCH (20:17)
[2018-10-20] MEDS: TPN IV SCH (20:17)
[2018-10-20] MEDS: Dyna-Hex 2% Top Sol 2oz TOPIC SCH (20:17)
[2018-10-21] VITALS: BP 144/86
[2018-10-21] MEDS: NovoLOG Insulin Flexpen SUBQ SCH ×4 (00:14→17:52)
[2018-10-21] MEDS: Simethicone 80mg tab ORAL PRN ×4 (02:25→17:45)
[2018-10-21 04:00] VITALS: BP 138/84
[2018-10-21] MEDS: HYDROmorphone 1mg/ml Carpuject SUBQ PRN ×5 (06:01→18:16)
[2018-10-21 06:41] LABS: BASOPHILS % (AUTO) 1.1 % (0.0-2.0); EOSINOPHILS % (AUTO) 7.2 % (0.0-3.0); HEMATOCRIT 34.2 % (37.0-47.0); HEMOGLOBIN 11.7 G/DL (12.0-16.0); LYMPHOCYTES % (AUTO) 10.1 % (20.0-45.0); MEAN CORPUSCULAR VOLUME 89 FL (80-99); MONOCYTES % (AUTO) 7.9 % (1.0-10.0); NEUTROPHILS % (AUTO) 73.8 % (45.0-75.0); PLATELET COUNT 260 K/UL (150-450); RED BLOOD COUNT 3.83 M/UL (4.20-5.40); RED CELL DISTRIBUTION WIDTH 12.8 % (11.6-14.8); WHITE BLOOD COUNT 8.5 K/UL (4.8-10.8)
[2018-10-21] MEDS: PCA shift volume MISC SCH (07:00)
[2018-10-21 07:01] LABS: ALANINE AMINOTRANSFERASE 185 U/L (12-78); ALBUMIN 2.4 G/DL (3.4-5.0); ALBUMIN/GLOBULIN RATIO 0.5 (1.0-2.7); ALKALINE PHOSPHATASE 246 U/L (46-116); ANION GAP 7 mmol/L (5-15); ASPARTATE AMINO TRANSFERASE 59 U/L (15-37); BILIRUBIN,TOTAL 0.6 MG/DL (0.2-1.0); BLOOD UREA NITROGEN 15 mg/dL (7-18); CALCIUM 9.1 MG/DL (8.5-10.1); CARBON DIOXIDE 26 MMOL/L (21-32); CHLORIDE 103 MMOL/L (98-107); CREATININE 0.6 MG/DL (0.55-1.30); POTASSIUM 4.1 MMOL/L (3.5-5.1); SODIUM 136 MMOL/L (136-145)
[2018-10-21 08:00] VITALS: BP 137/87
[2018-10-21] MEDS ORDERED: Naloxone 0.4mg/ml Inj IV PRN (08:00)
[2018-10-21] MEDS: NS w/KCl 40mEq 1,000 ML IV SCH (09:00)
--- NOTE | 2018-10-21 09:08 | General Progress Note ---
Progress Note Progress Note IZZY Tolerated clear liquids and gastrostomy 3:3 protocol until night time when she developed bloating, pressure and cramping pains. Better this AM Abdomen still mildly distended Urine 3220 Gastrostomy 585 Kock pouch ileo 370 labs all okay with Mg1.8 and albumin up 2.4 U/A okay - still with bladder symptoms with voiding - C&S pending Imp. Very slowly resolving ileus/sbo Plan: resume npo and gastrostomy to continuous drainage in view of overnight symptoms continue TPN; Mg infusion Will discuss with Dr. El f/u Vishnu Vieyra MD Oct 21, 2018 09:08
[2018-10-21] MEDS: Pantoprazole Inj IVP SCH (09:14)
[2018-10-21] MEDS: AZELASTINE NASAL SCH (09:15)
[2018-10-21] MEDS: Flonase Nasal Inhaler 16gm NASAL SCH (09:15)
[2018-10-21] MEDS: Phytonadione 10 mg/mL 1ml amp SUBQ SCH (09:15)
[2018-10-21] MEDS ORDERED: PCA HYDROmorphone 1mg/ml 30 ML IV PRN (09:30)
[2018-10-21] MEDS ORDERED: Hydromorphone 0.5mg/0.5ml inj IVP PRN (09:30)
[2018-10-21] MEDS ORDERED: DiphenhydrAMINE 50mg/ml Inj IVP PRN (09:30)
[2018-10-21] MEDS ORDERED: Rate Change PCA 1 Each MISC PRN (09:30)
--- NOTE | 2018-10-21 10:28 | GI Progress Note ---
Assessment/Plan Problems: (1) MALFUNCTIONING JASMINE POUCH (2) Abdominal pain ICD Codes: R10.9 - Unspecified abdominal pain SNOMED: 79503975 (3) Transaminitis ICD Codes: R74.0 - Nonspecific elevation of levels of transaminase and lactic acid dehydrogenase [LDH] SNOMED: 162528621, 689648462 (4) MALFUNCTIONING JASMINE POUCH Status: unchanged Status Narrative Discussed with Dr. El Assessment/Plan Postoperative ileus MRCP ordered to rule out primary sclerosing cholangitis >>negative Advance diet per primary, okay for gastrostomy to gravity. No GI intervention at this time, await full return of bowel function adv diet per primary Serial imaging as needed IV fluid hydration plus electrolyte correction PRN transfusions PPI Follow labs The patient was seen and examined at bedside and all new and available data was reviewed in the patients chart. I agree with the above findings, impression and plan. (Patient seen earlier today. Signature stamp does not reflect patient encounter time.). - Clarence El MD Subjective Subjective Patient complains of abdominal pain and cramping last night Ambulated this morning Objective Last 24 Hour Vital Signs Date Time Temp Pulse Resp B/P (MAP) Pulse Ox O2 Delivery O2 Flow Rate FiO2 10/21/18 08:00 98.2 86 18 137/87 (104) 98 10/21/18 08:00 18 10/21/18 04:00 98.6 79 16 138/84 (102) 96 10/21/18 04:00 18 10/21/18 00:00 98.6 83 16 144/86 (105) 97 10/21/18 00:00 18 10/20/18 21:00 18 10/20/18 21:00 Room Air 10/20/18 20:00 98.4 80 17 136/79 (98) 98 10/20/18 17:55 98.0 10/20/18 16:22 18 10/20/18 16:00 98.8 84 18 116/78 (91) 99 10/20/18 15:44 98.8 10/20/18 12:00 18 10/20/18 12:00 98.4 88 18 151/82 (105) 99 Intake and Output 10/20/18 10/21/18 18:59 06:59 Intake Total 1753 ml 1608 ml Output Total 2415 ml 1790 ml Balance -662 ml -182 ml Intake Oral 515 ml 540 ml IV Total 1238 ml 1068 ml Output Urine Total 1700 ml 1550 ml Other 715 ml 240 ml # Voids 7 6 Laboratory Tests Test 10/21/18 05:00 White Blood Count 8.5 K/UL (4.8-10.8) Red Blood Count 3.83 M/UL (4.20-5.40) L Hemoglobin 11.7 G/DL (12.0-16.0) L Hematocrit 34.2 % (37.0-47.0) L Mean Corpuscular Volume 89 FL (80-99) Mean Corpuscular Hemoglobin 30.4 PG (27.0-31.0) Mean Corpuscular Hemoglobin Concent 34.0 G/DL (32.0-36.0) Red Cell Distribution Width 12.8 % (11.6-14.8) Platelet Count 260 K/UL (150-450) Mean Platelet Volume 8.4 FL (6.5-10.1) Neutrophils (%) (Auto) 73.8 % (45.0-75.0) Lymphocytes (%) (Auto) 10.1 % (20.0-45.0) L Monocytes (%) (Auto) 7.9 % (1.0-10.0) Eosinophils (%) (Auto) 7.2 % (0.0-3.0) H Basophils (%) (Auto) 1.1 % (0.0-2.0) Sodium Level 136 MMOL/L (136-145) Potassium Level 4.1 MMOL/L (3.5-5.1) Chloride Level 103 MMOL/L (98-107) Carbon Dioxide Level 26 MMOL/L (21-32) Anion Gap 7 mmol/L (5-15) Blood Urea Nitrogen 15 mg/dL (7-18) Creatinine 0.6 MG/DL (0.55-1.30) Estimat Glomerular Filtration Rate > 60 mL/min (>60) Glucose Level 127 MG/DL (74-106) H Calcium Level 9.1 MG/DL (8.5-10.1) Magnesium Level 1.8 MG/DL (1.8-2.4) Total Bilirubin 0.6 MG/DL (0.2-1.0) Aspartate Amino Transf (AST/SGOT) 59 U/L (15-37) H Alanine Aminotransferase (ALT/SGPT) 185 U/L (12-78) H Alkaline Phosphatase 246 U/L (46-116) H Total Protein 6.8 G/DL (6.4-8.2) Albumin 2.4 G/DL (3.4-5.0) L Globulin 4.4 g/dL Albumin/Globulin Ratio 0.5 (1.0-2.7) L Height (Feet): 5 Height (Inches): 8.00 Weight (Pounds): 125 General Appearance: WD/WN, no apparent distress, alert Cardiovascular: normal rate Respiratory/Chest: normal breath sounds, no respiratory distress Abdominal Exam: normal bowel sounds, non tender, soft, other - Ileostomy catheter, G-tube Extremities: normal range of motion, non-tender Renetta Mccall NP Oct 21, 2018 10:28
[2018-10-21] MEDS: LORazepam 1mg tab SL PRN ×3 (11:43→20:47)
[2018-10-21 12:00] VITALS: BP 120/76
[2018-10-21 16:00] VITALS: BP 127/84
[2018-10-21] MEDS ORDERED: PCA shift volume MISC SCH (19:00)
[2018-10-21] MEDS: TPN IV SCH (19:54)
[2018-10-21] MEDS: FAT EMULSION 20% IV SCH (19:54)
[2018-10-21] MEDS: Dyna-Hex 2% Top Sol 2oz TOPIC SCH (19:54)
[2018-10-21 20:00] VITALS: BP 126/76
[2018-10-22] VITALS: BP 126/82
[2018-10-22] MEDS: HYDROmorphone 1mg/ml Carpuject SUBQ PRN ×5 (00:01→20:25)
--- NOTE | 2018-10-22 00:15 | Physician Query ---
--------- THIS DOCUMENT IS A PERMANENT PART OF THE MEDICAL RECORD --------- PLEASE COMPLETE DOCUMENT BEFORE SIGNING Dear Dr. Emerson CUEVAS Date: _09/20/18_ [employer]/CD[employer] Name: Marta DUNN [employer]/CDS Phone No.: Exercise your independent professional judgment when responding to the query. Questions asked do not imply a particular answer is desired or expected. We greatly appreciate your clarification on this issue. CLINICAL DOCUMENTATION STATES: (09/26/18) OPERATION PERFORMED: Laparotomy with revision of Kock pouch and lysis of small bowel adhesions. NPO x 4 DAYS POST-OP THEN STARTED ON TO\\PN ON 09/30/18: "Addendum: Loc Cuevas MD on 09/30/18 @ 12:17 XRay reveals multiple dilated loops of small bowel. Will start TPN CLINICAL FINDINGS SHOW: ALBUMIN = 2.4, 2.3, 2.2 g/dl BMI = 19 kg/m2 Please select the most appropriate option: [] Mild Protein Calorie Malnutrition [] Moderate Protein Calorie Malnutrition [] Severe Protein Calori Malnutrition [] Hypoalbuminemia [] Emancipated w/ Malnutrition [] Other [] Unable to determine [] Not Applicable Condition Present on Admission: [] Yes [] No [] Unable to determine Please also document in your Progress Notes and/or Discharge Summary and indicate if the condition was present on admission. LOC CUEVAS M[facility]D. [facility]
[2018-10-22] MEDS: NS w/KCl 40mEq 1,000 ML IV SCH ×3 (02:00→22:22)
[2018-10-22] MEDS: LORazepam 1mg tab SL PRN ×5 (02:20→22:22)
[2018-10-22 04:00] VITALS: BP 117/77
[2018-10-22] MEDS: NovoLOG Insulin Flexpen SUBQ SCH ×4 (05:15→18:17)
[2018-10-22] MEDS: Simethicone 80mg tab ORAL PRN ×3 (05:16→18:24)
[2018-10-22] MEDS ORDERED: Rate Change PCA 1 Each MISC PRN (07:30)
[2018-10-22 07:31] LABS: ALANINE AMINOTRANSFERASE 161 U/L (12-78); ALBUMIN 2.4 G/DL (3.4-5.0); ALBUMIN/GLOBULIN RATIO 0.6 (1.0-2.7); ALKALINE PHOSPHATASE 227 U/L (46-116); ANION GAP 8 mmol/L (5-15); ASPARTATE AMINO TRANSFERASE 55 U/L (15-37); BILIRUBIN,TOTAL 0.4 MG/DL (0.2-1.0); BLOOD UREA NITROGEN 17 mg/dL (7-18); CALCIUM 8.6 MG/DL (8.5-10.1); CARBON DIOXIDE 26 MMOL/L (21-32); CHLORIDE 104 MMOL/L (98-107); CREATININE 0.6 MG/DL (0.55-1.30); POTASSIUM 4.3 MMOL/L (3.5-5.1); SODIUM 138 MMOL/L (136-145)
--- NOTE | 2018-10-22 07:31 | General Progress Note ---
Progress Note Progress Note AVSS No changes - persistent distention. Only 100cc Kock pouch ileo output yesterday Labs pending IMp. Persistent ileus vs. SBO Plan: STAT CT scan abd+pelvis with oral contrast (no IV contrast) Vishnu Cuevas MD Oct 22, 2018 07:31
[2018-10-22 07:46] LABS: BASOPHILS % (AUTO) 0.8 % (0.0-2.0); EOSINOPHILS % (AUTO) 5.9 % (0.0-3.0); HEMATOCRIT 32.6 % (37.0-47.0); HEMOGLOBIN 11.1 G/DL (12.0-16.0); LYMPHOCYTES % (AUTO) 11.8 % (20.0-45.0); MEAN CORPUSCULAR VOLUME 90 FL (80-99); MONOCYTES % (AUTO) 7.8 % (1.0-10.0); NEUTROPHILS % (AUTO) 73.6 % (45.0-75.0); PLATELET COUNT 252 K/UL (150-450); RED BLOOD COUNT 3.64 M/UL (4.20-5.40); RED CELL DISTRIBUTION WIDTH 12.9 % (11.6-14.8); WHITE BLOOD COUNT 9.1 K/UL (4.8-10.8)
[2018-10-22 08:00] VITALS: BP 143/99
[2018-10-22] MEDS ORDERED: Hydromorphone 0.5mg/0.5ml inj IVP PRN (08:00)
[2018-10-22] MEDS ORDERED: PCA HYDROmorphone 1mg/ml 30 ML IV PRN (08:00)
[2018-10-22] MEDS ORDERED: DiphenhydrAMINE 50mg/ml Inj IVP PRN (08:00)
[2018-10-22] MEDS: Pantoprazole Inj IVP SCH (08:25)
[2018-10-22] MEDS: Flonase Nasal Inhaler 16gm NASAL SCH (08:25)
[2018-10-22] MEDS: AZELASTINE NASAL SCH (08:25)
[2018-10-22 12:00] VITALS: BP 126/99
--- NOTE | 2018-10-22 13:04 | Diagnostic Imaging Report ---
Indication: Abdominal pain, history of continent ileostomy pouch revision Technique: Spiral acquisitions obtained through the abdomen and pelvis, as well as delayed images through the region of the pouch. Enteric contrast provided via gastrostomy. No IV contrast utilized, per referring physician request. Multiplanar reconstructions were generated. Total dose length product 611.7 and 428 mGycm. CTDIvol(s) 13.01 and 15.47 mGy. Dose reduction achieved using automated exposure control Comparison: 10/16/[address], 10/07/[address] Findings: Again demonstrated is evidence of prior colectomy and left lower quadrant continent ileostomy. Initially, injected contrast traverses the entirety of the small bowel, and there is seen as far distally as the dilated segment of small bowel immediately proximal to the catheterized portion of the ileostomy pouch. No contrast is seen within the catheterized portion of the pouch or within the Brock catheter on the initial images. Delayed images do demonstrate contrast within the distal pouch and Brock catheter, however.. Small bowel loops are nondilated. There is a gastrostomy tube, which is within the stomach although the balloon is not opposed to the abdominal wall. There is no evidence of contrast leakage. Again demonstrated are midline skin emil and a midline skin incision. No definite incisional or periincisional fluid collection demonstrated. No free intraperitoneal gas demonstrated. A small amount of free fluid is seen within the posterior pelvis, slightly diminished from the prior exam. No other fluid collections are evident. Previously demonstrated Brock catheter has been removed, and the bladder is now mildly distended. There is no gross bladder wall thickening, however. Lack of IV contrast limits assessment of the solid organs. The gallbladder is distended, but no stones are evident. The liver, bile ducts, pancreas, spleen, adrenals are all grossly unremarkable. Subtle subcentimeter low-attenuation renal lesions are again demonstrated bilaterally. There may be a tiny parenchymal calcification on the right. No retroperitoneal or mesenteric mass or adenopathy. No pelvic mass or adenopathy. The included lung bases are largely clear. The bones demonstrate degenerative spondylosis changes. There is a tiny fat-containing Bochdalek hernia on the left. Impression: Postsurgical changes as described above and previously, status post total colectomy and continent ileostomy placement Ingested contrast has traversed the entirety of the small bowel, but has not entered the catheterized portion of the pouch on the initial images, but does enter the distal pouch on delayed images. This probably represents slow transit of contrast through the anastomosis, although the possibility of partial distal obstruction cannot be completely excluded Gastrostomy tube, as described, new since previous study of 10/01/2018 but present and incompletely visualized on 10/16/2018 Interim Brock catheter removal. Mild bladder distention currently Small amount of free pelvic fluid, slightly diminished from 10/16/2018 Other findings as noted, including tiny fat-containing left-sided Bochdalek hernia, degenerative spondylosis, probable small renal cysts, possible tiny right renal parenchymal calcification The CT scanner at [facility] is accredited by the [employer] and the scans are performed using protocols designed to limit radiation exposure to as low as reasonably achievable to attain images of sufficient resolution adequate for diagnostic evaluation.
--- NOTE | 2018-10-22 15:02 | GI Progress Note ---
Assessment/Plan Problems: (1) MALFUNCTIONING JASMINE POUCH (2) Abdominal pain ICD Codes: R10.9 - Unspecified abdominal pain SNOMED: 62216696 (3) Transaminitis ICD Codes: R74.0 - Nonspecific elevation of levels of transaminase and lactic acid dehydrogenase [LDH] SNOMED: 391374132, 741911104 (4) MALFUNCTIONING JASMINE POUCH Status: unchanged Status Narrative Discussed with Dr. El Assessment/Plan Postoperative ileus MRCP ordered to rule out primary sclerosing cholangitis >>negative Abdominal pelvis CT reviewed >> slow transit of contrast through the anastomosis , although the possibility of partial distal obstruction cannot be completely excluded Pouch endoscopy scheduled for tomorrow. NPO, okay for gastrostomy to gravity. No GI intervention at this time, await full return of bowel function adv diet per primary Serial imaging as needed IV fluid hydration plus electrolyte correction PRN transfusions PPI Follow labs The patient was seen and examined at bedside and all new and available data was reviewed in the patients chart. I agree with the above findings, impression and plan. (Patient seen earlier today. Signature stamp does not reflect patient encounter time.). - Clarence El MD Subjective Subjective Patient complains of abdominal pain and cramping Objective Last 24 Hour Vital Signs Date Time Temp Pulse Resp B/P (MAP) Pulse Ox O2 Delivery O2 Flow Rate FiO2 10/22/18 12:00 98.6 82 18 126/99 (108) 98 10/22/18 12:00 18 10/22/18 10:01 98.7 10/22/18 09:00 Room Air 10/22/18 08:00 18 10/22/18 08:00 98.7 85 18 143/99 (114) 97 10/22/18 04:00 98.7 85 18 117/77 (90) 97 10/22/18 04:00 18 10/22/18 00:00 18 10/22/18 00:00 98.4 87 17 126/82 (97) 97 10/21/18 21:00 Room Air 10/21/18 20:00 17 10/21/18 20:00 98.3 80 18 126/76 (93) 97 10/21/18 16:00 98.5 82 20 127/84 (98) 96 10/21/18 16:00 18 Intake and Output 10/21/18 10/22/18 18:59 06:59 Intake Total 1818 ml 1009 ml Output Total 1390 ml 1050 ml Balance 428 ml -41 ml Intake Oral 150 ml IV Total 1668 ml 1009 ml Output Urine Total 850 ml 900 ml Other 540 ml 150 ml # Voids 4 Laboratory Tests Test 10/22/18 05:10 White Blood Count 9.1 K/UL (4.8-10.8) Red Blood Count 3.64 M/UL (4.20-5.40) L Hemoglobin 11.1 G/DL (12.0-16.0) L Hematocrit 32.6 % (37.0-47.0) L Mean Corpuscular Volume 90 FL (80-99) Mean Corpuscular Hemoglobin 30.4 PG (27.0-31.0) Mean Corpuscular Hemoglobin Concent 33.9 G/DL (32.0-36.0) Red Cell Distribution Width 12.9 % (11.6-14.8) Platelet Count 252 K/UL (150-450) Mean Platelet Volume 8.8 FL (6.5-10.1) Neutrophils (%) (Auto) 73.6 % (45.0-75.0) Lymphocytes (%) (Auto) 11.8 % (20.0-45.0) L Monocytes (%) (Auto) 7.8 % (1.0-10.0) Eosinophils (%) (Auto) 5.9 % (0.0-3.0) H Basophils (%) (Auto) 0.8 % (0.0-2.0) Sodium Level 138 MMOL/L (136-145) Potassium Level 4.3 MMOL/L (3.5-5.1) Chloride Level 104 MMOL/L (98-107) Carbon Dioxide Level 26 MMOL/L (21-32) Anion Gap 8 mmol/L (5-15) Blood Urea Nitrogen 17 mg/dL (7-18) Creatinine 0.6 MG/DL (0.55-1.30) Estimat Glomerular Filtration Rate > 60 mL/min (>60) Glucose Level 114 MG/DL (74-106) H Calcium Level 8.6 MG/DL (8.5-10.1) Magnesium Level 1.8 MG/DL (1.8-2.4) Total Bilirubin 0.4 MG/DL (0.2-1.0) Aspartate Amino Transf (AST/SGOT) 55 U/L (15-37) H Alanine Aminotransferase (ALT/SGPT) 161 U/L (12-78) H Alkaline Phosphatase 227 U/L (46-116) H Total Protein 6.5 G/DL (6.4-8.2) Albumin 2.4 G/DL (3.4-5.0) L Globulin 4.1 g/dL Albumin/Globulin Ratio 0.6 (1.0-2.7) L Height (Feet): 5 Height (Inches): 8.00 Weight (Pounds): 125 General Appearance: WD/WN, no apparent distress, alert Cardiovascular: normal rate Respiratory/Chest: normal breath sounds, no respiratory distress Abdominal Exam: normal bowel sounds, non tender, soft, other - Catheter, G-tube Extremities: normal range of motion, non-tender Renetta Mccall NP Oct 22, 2018 15:02
[2018-10-22 16:00] VITALS: BP 111/72
[2018-10-22] MEDS: PCA shift volume MISC SCH (19:00)
[2018-10-22 20:00] VITALS: BP 124/78
[2018-10-22] MEDS: FAT EMULSION 20% IV SCH (20:09)
[2018-10-22] MEDS: TPN IV SCH (20:09)
[2018-10-22] MEDS: Dyna-Hex 2% Top Sol 2oz TOPIC SCH (20:09)
[2018-10-23] VITALS (11 sets, daily range): BP systolic 118–141; BP diastolic 73–90
[2018-10-23] MEDS: NovoLOG Insulin Flexpen SUBQ SCH ×5 (00:22→23:43)
[2018-10-23] MEDS: Simethicone 80mg tab ORAL PRN ×4 (00:26→18:08)
[2018-10-23] MEDS: NS w/KCl 40mEq 1,000 ML IV SCH ×2 (00:45→20:09)
[2018-10-23 05:25] LABS: EOSINOPHILS % (AUTO) 9.9 % (0.0-3.0); HEMATOCRIT 33.4 % (37.0-47.0); HEMOGLOBIN 11.3 G/DL (12.0-16.0); LYMPHOCYTES % (AUTO) 13.3 % (20.0-45.0); MEAN CORPUSCULAR VOLUME 89 FL (80-99); NEUTROPHILS % (AUTO) 68.9 % (45.0-75.0); PLATELET COUNT 248 K/UL (150-450); RED BLOOD COUNT 3.74 M/UL (4.20-5.40); RED CELL DISTRIBUTION WIDTH 12.9 % (11.6-14.8); WHITE BLOOD COUNT 8.2 K/UL (4.8-10.8)
[2018-10-23] MEDS: HYDROmorphone 1mg/ml Carpuject SUBQ PRN ×3 (05:25→20:08)
[2018-10-23 05:38] LABS: ANION GAP 10 mmol/L (5-15); BLOOD UREA NITROGEN 15 mg/dL (7-18); CALCIUM 9.4 MG/DL (8.5-10.1); CARBON DIOXIDE 25 MMOL/L (21-32); CHLORIDE 103 MMOL/L (98-107); CREATININE 0.6 MG/DL (0.55-1.30); POTASSIUM 4.3 MMOL/L (3.5-5.1); SODIUM 138 MMOL/L (136-145)
[2018-10-23] MEDS: LORazepam 1mg tab SL PRN ×2 (06:22→17:52)
[2018-10-23] MEDS: PCA shift volume MISC SCH ×2 (07:38→19:00)
[2018-10-23] MEDS ORDERED: LORazepam 1mg tab SL SCH (08:45)
[2018-10-23] MEDS: AZELASTINE NASAL SCH (08:52)
[2018-10-23] MEDS: Pantoprazole Inj IVP SCH (08:52)
[2018-10-23] MEDS: Flonase Nasal Inhaler 16gm NASAL SCH (08:52)
--- NOTE | 2018-10-23 09:10 | Pre-Procedure Note/Attestation ---
Pre-Procedure Note/Attestation Complete Prior to Procedure Planned Procedure: not applicable Procedure Narrative: ileoscopy Indications for Procedure Pre-Operative Diagnosis: abd pain Attestation I attest that I discussed the nature of the procedure; its benefits; risks and complications; and alternatives (and the risks and benefits of such alternatives ), prior to the procedure, with the patient (or the patient's legal care support representative). I attest that, if there was a reasonable possibility of needing a blood transfusion, the patient (or the patient's legal care support representative) was given the [facility] standardized written summary, pursuant to the Damion Shravan Blood Safety Act ([place] Health and Safety Code # 1645, as amended). I attest that I re-evaluated the patient just prior to the surgery and that there has been no change in the patient's H&P, except as documented below: Clarence El MD Oct 23, 2018 09:10
[2018-10-23] MEDS ORDERED: Propofol 200mg/20ml IV ONE (10:00)
[2018-10-23] MEDS ORDERED: Lidocaine 1% MPF 10mg/ml 5ml ONE (10:00)
[2018-10-23] MEDS ORDERED: NS 500ML IVPB ONE (10:15)
[2018-10-23] MEDS ORDERED: Atropine Inj 1mg/10ml Syr IV PRN (10:45)
[2018-10-23] MEDS ORDERED: fentaNYL 100 mcg/2 mL IV PRN (10:45)
[2018-10-23] MEDS ORDERED: Midazolam 2mg/2ml Inj IVP PRN (10:45)
[2018-10-23] MEDS ORDERED: DiphenhydrAMINE 50mg/ml Inj IVP PRN ×3 (10:45→20:00)
--- NOTE | 2018-10-23 10:46 | Anethesia Preoperative Eval ---
Anesthesia Pre-op PMH/ROS General Date of Evaluation: Oct 23, 2018 Time of Evaluation: 10:06 Anesthesiologist: santy ASA Score: ASA 3 Mallampati Score Class I : Soft palate, uvula, fauces, pillars visible Class II: Soft palate, uvula, fauces visible Class III: Soft palate, base of uvula visible Class IV: Only hard plate visible Mallampati Classification: Class II Surgeon: vee Diagnosis: malfunctioning kock pouch Surgical Procedure: endopouch Anesthesia History: none Social History: smoking - nonsmoker Family History: no anesthesia problems Allergies: Coded Allergies: METRONIDAZOLE (Verified Allergy, Mild, 09/18/18) HEADACHE, DIZZINESS Uncoded Allergies: hay fever (Allergy, Unknown, 09/24/16) Medications: see eMAR Patient NPO?: Yes NPO Date: Oct 22, 2018 NPO Time: 00:00 Past Medical History Cardiovascular: Reports: arrhythmia, other - cardiac ablation Pulmonary: Reports: other - bronchitis, pneumonia, cough Gastrointestinal/Genitourinary: Reports: other - uti, gi bleed, Neurologic/Psychiatric: Reports: depression/anxiety PSxH Narrative: hip sx, bcir, stoma revision sx, sinus sx, cardiac ablation, tonsillectomy Anesthesia Pre-op Phys. Exam Physician Exam Last Vital Signs Date Time Temp Pulse Resp B/P (MAP) Pulse Ox O2 Delivery O2 Flow Rate FiO2 10/23/18 08:00 98.3 85 16 119/80 (93) 100 10/22/18 21:00 Room Air Constitutional: NAD Neurologic: CN 2-12 intact Cardiovascular: RRR Respiratory: CTA Gastrointestinal: S/NT/ND Airway Exam Mallampati Score: Class II MO: limited Neck: flexible TMD: 2fb ROM: limited Anesthesia Pre-op A/P Labs Hematology Test 10/23/18 05:15 White Blood Count 8.2 K/UL (4.8-10.8) Red Blood Count 3.74 M/UL (4.20-5.40) L Hemoglobin 11.3 G/DL (12.0-16.0) L Hematocrit 33.4 % (37.0-47.0) L Mean Corpuscular Volume 89 FL (80-99) Mean Corpuscular Hemoglobin 30.3 PG (27.0-31.0) Mean Corpuscular Hemoglobin Concent 33.9 G/DL (32.0-36.0) Red Cell Distribution Width 12.9 % (11.6-14.8) Platelet Count 248 K/UL (150-450) Mean Platelet Volume 8.0 FL (6.5-10.1) Neutrophils (%) (Auto) 68.9 % (45.0-75.0) Lymphocytes (%) (Auto) 13.3 % (20.0-45.0) L Monocytes (%) (Auto) 7.0 % (1.0-10.0) Eosinophils (%) (Auto) 9.9 % (0.0-3.0) H Basophils (%) (Auto) 1.0 % (0.0-2.0) Chemistry Test 10/23/18 05:15 Sodium Level 138 MMOL/L (136-145) Potassium Level 4.3 MMOL/L (3.5-5.1) Chloride Level 103 MMOL/L (98-107) Carbon Dioxide Level 25 MMOL/L (21-32) Anion Gap 10 mmol/L (5-15) Blood Urea Nitrogen 15 mg/dL (7-18) Creatinine 0.6 MG/DL (0.55-1.30) Estimat Glomerular Filtration Rate > 60 mL/min (>60) Glucose Level 130 MG/DL (74-106) H Calcium Level 9.4 MG/DL (8.5-10.1) Risk Assessment & Plan Assessment: asa3 Plan: mac Status Change Before Surgery: No Pre-Antibiotics Drug: Kayli Pérez MD Oct 23, 2018 10:46
--- NOTE | 2018-10-23 11:42 | Endoscopy Procedure Note ---
Endoscopy Procedure Note General Indication for Procedure: abd pain Procedures Performed: other - pouchoscopy Operative Findings/Diagnosis: same Specimen: none Pt Tolerated Procedure Well: Yes Estimated Blood Loss: none Anesthesia Anesthesiologist: nita jiménez Anesthesia: MAC Inserted Devices Implant(s) used?: No GI Core Measures 50 yrs or older w/o bx or poly: Not Applicable 10yrs. F/U not recommended: Not Applicable Clarence El MD Oct 23, 2018 11:42
[2018-10-23] MEDS: Hyoscyamine 0.125mg tab ORAL PRN ×2 (12:15→20:24)
--- NOTE | 2018-10-23 13:27 | Immediate Post-Op Evaluation ---
Immediate Post-Op Evalulation Immediate Post-Op Evalulation Procedure: endopouch Date of Evaluation: Oct 23, 2018 Time of Evaluation: 11:07 IV Fluids: 150ml 0.9ns Blood Products: none Estimated Blood Loss: neglgible Blood Pressure Systolic: 129 Blood Pressure Diastolic: 89 Pulse Rate: 74 Respiratory Rate: 18 O2 Sat by Pulse Oximetry: 96 Temperature (Fahrenheit): 98.7 Pain Score (1-10): 0 Nausea: No Vomiting: No Complications none Patient Status: awake, reacts, patent Hydration Status: adequate Drug: Kayli Pérez MD Oct 23, 2018 13:27
--- NOTE | 2018-10-23 13:29 | 48 Hour Post Anesthesia Eval ---
Post Anesthesia Evaluation Procedure: endopouch Date of Evaluation: Oct 23, 2018 Time of Evaluation: 11:09 Blood Pressure Systolic: 132 0: 90 Pulse Rate: 79 Respiratory Rate: 18 Temperature (Fahrenheit): 98.7 O2 Sat by Pulse Oximetry: 98 Airway: patent Nausea: No Vomiting: No Pain Intensity: 0 Hydration Status: adequate Cardiopulmonary Status: stable Mental Status/LOC: patient returned to baseline Post-Anesthesia Complications: none Follow-up care needed: N/A Kayli Astudillo MD Oct 23, 2018 13:29
[2018-10-23] MEDS ORDERED: Hydromorphone 0.5mg/0.5ml inj IVP PRN (15:50)
[2018-10-23] MEDS ORDERED: PCA HYDROmorphone 1mg/ml 30 ML IV PRN (15:50)
--- NOTE | 2018-10-23 15:51 | General Progress Note ---
Progress Note Progress Note AVSS Had pouch endoscopy but could not enter afferent bowel. Pouch appears healthy will healed. Had cramping post-procedure now resolved Abdomen soft, nearly flat, non-tender. Cipriano removed urine C&S neg for uti Ileo 490cc but only 70cc overnight. Gastrostomy only 360cc/24 hours Imp. slowly resolving ileus/partial SBO Plan: Will resume clear liquids in AM and intermittent plugging of gastrostomy continue TPN Vishnu Cuevas MD Oct 23, 2018 15:51
--- NOTE | 2018-10-23 19:45 | Procedure Note ---
DATE OF PROCEDURE: 10/23/2018 SURGEON: Clarence El M.D. PROCEDURE: Ileoscopy and pouchoscopy . ANESTHESIA: Per Dr. Mosher. INSTRUMENT: Olympus adult flexible upper endoscope. INDICATION: Abdominal pain, questionable stricture. The procedure, risks, benefits, and possible consequences, including hemorrhage, aspiration, perforation and infection, and alternative treatments, were explained to the patient/legal guardian by Dr. Clarence El and the patient/legal guardian understood and accepted these risks. PROCEDURE IN DETAIL: After informed consent was obtained and the patient was adequately sedated, first Brock that was in the pouch was removed. Then, the pediatric upper scope was introduced into the gastric pouch. The pouch seemed to be intact. There was a large fold in the center. If you looked at the squaxin, there was a large purplish-looking fold starting at about 11 o'clock position pointing down to about 6 o'clock or 7 o'clock position. There was no obvious bleeding. We tried numerous times to get the scope beyond the pouch into the more proximal small bowel. Every time we did that, we had to look in the pouch and we only accessed only a few centimeters into the small bowel, so we could not get much further in the pouch, maybe only a few centimeters. This is maybe because of just anatomy or because the scope keeps looking in the pouch and the pouch was pretty big. After trying over half an hour, we decided to not push too hard because of the recent surgery and risk of perforation. SUMMARY OF FINDINGS: Unable to access proximal small bowel to the pouch, only few centimeters of distal small bowel was examined. The pouch seemed to be intact without any obvious bleeding. RECOMMENDATIONS: We will discuss with Dr. Vishnu Cuevas for further management of this patient. I want to thank, Dr. Vishnu Cuevas, for this kind referral. Clarence El M.D. DR: CECIL JOB#: [id number] CC: Vishnu Cuevas M.D.; Fax#: [phone]
[2018-10-23] MEDS: FAT EMULSION 20% IV SCH (20:00)
[2018-10-23] MEDS: Dyna-Hex 2% Top Sol 2oz TOPIC SCH (20:00)
[2018-10-23] MEDS: TPN IV SCH (20:00)
[2018-10-24 04:00] VITALS: BP 125/82
[2018-10-24] MEDS: NovoLOG Insulin Flexpen SUBQ SCH ×3 (06:00→18:37)
[2018-10-24] MEDS: HYDROmorphone 1mg/ml Carpuject SUBQ PRN (06:02)
[2018-10-24] MEDS: Hyoscyamine 0.125mg tab ORAL PRN ×2 (06:13→16:06)
[2018-10-24 06:37] LABS: BASOPHILS % (AUTO) 1.3 % (0.0-2.0); EOSINOPHILS % (AUTO) 10.1 % (0.0-3.0); HEMATOCRIT 34.1 % (37.0-47.0); HEMOGLOBIN 11.3 G/DL (12.0-16.0); LYMPHOCYTES % (AUTO) 14.7 % (20.0-45.0); MEAN CORPUSCULAR VOLUME 91 FL (80-99); MONOCYTES % (AUTO) 8.4 % (1.0-10.0); NEUTROPHILS % (AUTO) 65.6 % (45.0-75.0); PLATELET COUNT 299 K/UL (150-450); RED BLOOD COUNT 3.76 M/UL (4.20-5.40); RED CELL DISTRIBUTION WIDTH 12.8 % (11.6-14.8); WHITE BLOOD COUNT 8.4 K/UL (4.8-10.8)
[2018-10-24 07:01] LABS: ANION GAP 8 mmol/L (5-15); BLOOD UREA NITROGEN 16 mg/dL (7-18); CALCIUM 9.3 MG/DL (8.5-10.1); CARBON DIOXIDE 26 MMOL/L (21-32); CHLORIDE 104 MMOL/L (98-107); CREATININE 0.6 MG/DL (0.55-1.30); POTASSIUM 4.5 MMOL/L (3.5-5.1); SODIUM 138 MMOL/L (136-145)
[2018-10-24] MEDS: PCA shift volume MISC SCH ×2 (07:28→19:00)
[2018-10-24] MEDS ORDERED: PCA HYDROmorphone 1mg/ml 30 ML IV PRN (07:46)
--- NOTE | 2018-10-24 07:50 | General Progress Note ---
Progress Note Progress Note AVSS comfortable overnight. when she has pain and gets dilaudid she gets immediate cramping Abdomen soft, minimal distention Urine 2545 Gastrostomy 190 Kock pouch ileo 115 Imp. slowly resolving partial sbo Plan: clear liquid diet gastrostomy 3:3 protocol until hs, then resume continuous drainage overnight Percocet 5/325 prn instead of Dilaudid Vishnu Cuevas MD Oct 24, 2018 07:50
[2018-10-24] MEDS ORDERED: Rate Change PCA 1 Each MISC PRN ×2 (07:52→09:00)
[2018-10-24 08:00] VITALS: BP 115/83
[2018-10-24] MEDS: Flonase Nasal Inhaler 16gm NASAL SCH (09:50)
[2018-10-24] MEDS: Pantoprazole Inj IVP SCH (09:51)
[2018-10-24] MEDS: AZELASTINE NASAL SCH (09:51)
--- NOTE | 2018-10-24 10:36 | GI Progress Note ---
Assessment/Plan Problems: (1) MALFUNCTIONING JASMINE POUCH (2) Abdominal pain ICD Codes: R10.9 - Unspecified abdominal pain SNOMED: 21184852 (3) Transaminitis ICD Codes: R74.0 - Nonspecific elevation of levels of transaminase and lactic acid dehydrogenase [LDH] SNOMED: 783834569, 029078174 (4) MALFUNCTIONING JASMINE POUCH Status: unchanged Status Narrative Discussed with Dr. El Assessment/Plan Postoperative ileus MRCP ordered to rule out primary sclerosing cholangitis >>negative Abdominal pelvis CT reviewed >> slow transit of contrast through the anastomosis , although the possibility of partial distal obstruction cannot be completely excluded Status post pouch endoscopy SUMMARY OF FINDINGS: Unable to access proximal small bowel to the pouch,only few centimeters of distal small bowel was examined. The pouchseemed to be intact without any obvious bleeding. RECOMMENDATIONS: We will discuss findings with Dr. Cuevas. CHARLENE, mindy for gastrostomy to gravity. await full return of bowel function adv diet per primary Serial imaging as needed IV fluid hydration plus electrolyte correction PRN transfusions PPI Follow labs The patient was seen and examined at bedside and all new and available data was reviewed in the patients chart. I agree with the above findings, impression and plan. (Patient seen earlier today. Signature stamp does not reflect patient encounter time.). - Clarence El MD Subjective Subjective Reports more output through the ileostomy Objective Last 24 Hour Vital Signs Date Time Temp Pulse Resp B/P (MAP) Pulse Ox O2 Delivery O2 Flow Rate FiO2 10/24/18 08:00 97.8 90 18 115/83 (94) 97 10/24/18 04:00 98.3 81 18 125/82 (96) 97 10/24/18 04:00 17 10/23/18 23:55 17 10/23/18 23:55 98.4 83 18 127/73 (91) 96 10/23/18 21:00 Room Air 10/23/18 20:00 99.1 90 18 140/82 (101) 96 10/23/18 20:00 17 10/23/18 16:00 17 10/23/18 16:00 98.4 83 19 118/82 (94) 99 10/23/18 13:29 79 18 98 10/23/18 13:27 74 18 96 10/23/18 12:45 98.5 10/23/18 12:00 17 10/23/18 11:45 98.5 75 17 136/82 98 Nasal Cannula 3 10/23/18 11:30 79 15 130/85 96 Nasal Cannula 3 10/23/18 11:10 77 16 132/90 97 Nasal Cannula 3 10/23/18 11:05 81 15 129/89 96 Nasal Cannula 3 10/23/18 11:00 80 17 130/79 97 Nasal Cannula 3 10/23/18 10:55 98.7 74 18 129/89 98 Nasal Cannula 3 Intake and Output 10/23/18 10/24/18 19:00 07:00 Intake Total 850 ml 1290 ml Output Total 1415 ml 1765 ml Balance -565 ml -475 ml Intake Oral 50 ml 50 ml IV Total 800 ml 1240 ml Output Urine Total 1250 ml 1625 ml Other 165 ml 140 ml # Voids 3 Laboratory Tests Test 10/24/18 05:30 White Blood Count 8.4 K/UL (4.8-10.8) Red Blood Count 3.76 M/UL (4.20-5.40) L Hemoglobin 11.3 G/DL (12.0-16.0) L Hematocrit 34.1 % (37.0-47.0) L Mean Corpuscular Volume 91 FL (80-99) Mean Corpuscular Hemoglobin 29.9 PG (27.0-31.0) Mean Corpuscular Hemoglobin Concent 33.0 G/DL (32.0-36.0) Red Cell Distribution Width 12.8 % (11.6-14.8) Platelet Count 299 K/UL (150-450) Mean Platelet Volume 8.8 FL (6.5-10.1) Neutrophils (%) (Auto) 65.6 % (45.0-75.0) Lymphocytes (%) (Auto) 14.7 % (20.0-45.0) L Monocytes (%) (Auto) 8.4 % (1.0-10.0) Eosinophils (%) (Auto) 10.1 % (0.0-3.0) H Basophils (%) (Auto) 1.3 % (0.0-2.0) Sodium Level 138 MMOL/L (136-145) Potassium Level 4.5 MMOL/L (3.5-5.1) Chloride Level 104 MMOL/L (98-107) Carbon Dioxide Level 26 MMOL/L (21-32) Anion Gap 8 mmol/L (5-15) Blood Urea Nitrogen 16 mg/dL (7-18) Creatinine 0.6 MG/DL (0.55-1.30) Estimat Glomerular Filtration Rate > 60 mL/min (>60) Glucose Level 108 MG/DL (74-106) H Calcium Level 9.3 MG/DL (8.5-10.1) Height (Feet): 5 Height (Inches): 8.00 Weight (Pounds): 125 General Appearance: WD/WN, no apparent distress, alert Cardiovascular: normal rate Respiratory/Chest: normal breath sounds, no respiratory distress Abdominal Exam: normal bowel sounds, non tender, soft, other - Ileostomy catheter, G-tube Extremities: normal range of motion, non-tender Renetta Mccall NP Oct 24, 2018 10:36
[2018-10-24] MEDS ORDERED: Hydromorphone 0.5mg/0.5ml inj IVP PRN (11:15)
[2018-10-24] MEDS ORDERED: HYDROmorphone 1mg/ml Carpuject SUBQ PRN (11:15)
[2018-10-24] MEDS: oxyCODONE HCL/Acetaminophen 5/325mg ORAL PRN (11:35)
[2018-10-24 12:00] VITALS: BP 119/70
[2018-10-24] MEDS: LORazepam 1mg tab SL PRN ×2 (13:16→20:13)
[2018-10-24 16:00] VITALS: BP 124/82
[2018-10-24] MEDS: NS w/KCl 40mEq 1,000 ML IV SCH (17:25)
[2018-10-24 20:00] VITALS: BP 121/74
[2018-10-24] MEDS: FAT EMULSION 20% IV SCH (20:14)
[2018-10-24] MEDS: TPN IV SCH (20:14)
[2018-10-25] VITALS: BP 116/72
[2018-10-25] MEDS: LORazepam 1mg tab SL PRN ×3 (01:09→19:07)
[2018-10-25 04:00] VITALS: BP 120/70
[2018-10-25] MEDS: Simethicone 80mg tab ORAL PRN ×2 (05:42→19:07)
[2018-10-25] MEDS: NovoLOG Insulin Flexpen SUBQ SCH ×4 (05:43→18:00)
[2018-10-25] MEDS: PCA shift volume MISC SCH ×2 (07:00→19:00)
[2018-10-25 07:04] LABS: ALANINE AMINOTRANSFERASE 249 U/L (12-78); ALBUMIN 2.8 G/DL (3.4-5.0); ALBUMIN/GLOBULIN RATIO 0.6 (1.0-2.7); ALKALINE PHOSPHATASE 272 U/L (46-116); ANION GAP 13 mmol/L (5-15); ASPARTATE AMINO TRANSFERASE 107 U/L (15-37); BILIRUBIN,TOTAL 0.7 MG/DL (0.2-1.0); BLOOD UREA NITROGEN 16 mg/dL (7-18); CALCIUM 9.5 MG/DL (8.5-10.1); CARBON DIOXIDE 21 MMOL/L (21-32); CHLORIDE 104 MMOL/L (98-107); CREATININE 0.7 MG/DL (0.55-1.30); PHOSPHORUS 2.9 MG/DL (2.5-4.9); SODIUM 138 MMOL/L (136-145)
[2018-10-25 07:58] LABS: BASOPHILS % (AUTO) 1.2 % (0.0-2.0); EOSINOPHILS % (AUTO) 11.4 % (0.0-3.0); HEMATOCRIT 35.9 % (37.0-47.0); HEMOGLOBIN 12.1 G/DL (12.0-16.0); LYMPHOCYTES % (AUTO) 15.5 % (20.0-45.0); MEAN CORPUSCULAR VOLUME 89 FL (80-99); MONOCYTES % (AUTO) 7.2 % (1.0-10.0); NEUTROPHILS % (AUTO) 64.7 % (45.0-75.0); PLATELET COUNT 316 K/UL (150-450); RED BLOOD COUNT 4.01 M/UL (4.20-5.40); RED CELL DISTRIBUTION WIDTH 12.7 % (11.6-14.8); WHITE BLOOD COUNT 7.7 K/UL (4.8-10.8)
[2018-10-25 08:00] VITALS: BP 127/87
[2018-10-25] MEDS: Pantoprazole Inj IVP SCH (08:10)
[2018-10-25] MEDS: AZELASTINE NASAL SCH (08:10)
[2018-10-25] MEDS: Flonase Nasal Inhaler 16gm NASAL SCH (08:10)
[2018-10-25] MEDS: oxyCODONE HCL/Acetaminophen 5/325mg ORAL PRN (08:11)
[2018-10-25 12:00] VITALS: BP 130/78
[2018-10-25] MEDS: NS w/KCl 40mEq 1,000 ML IV SCH (13:00)
--- NOTE | 2018-10-25 13:51 | General Progress Note ---
Assessment/Plan Problem List: (1) MALFUNCTIONING JASMINE POUCH (2) Transaminitis ICD Codes: R74.0 - Nonspecific elevation of levels of transaminase and lactic acid dehydrogenase [LDH] SNOMED: 035298104, 241756739 (3) Abdominal pain ICD Codes: R10.9 - Unspecified abdominal pain SNOMED: 09225763 (4) Ulcerative colitis ICD Codes: K51.90 - Ulcerative colitis, unspecified, without complications SNOMED: 11444015 Assessment/Plan feeling much better had good pouch out put still elevated LFTS, no dilated CBD on MRCP normal CA 19-9 fu Subjective ROS Limited/Unobtainable: Yes Allergies: Coded Allergies: METRONIDAZOLE (Verified Allergy, Mild, 09/18/18) HEADACHE, DIZZINESS Uncoded Allergies: hay fever (Allergy, Unknown, 09/24/16) Subjective feeling better Objective Last 24 Hour Vital Signs Date Time Temp Pulse Resp B/P (MAP) Pulse Ox O2 Delivery O2 Flow Rate FiO2 10/25/18 09:00 Room Air 10/25/18 08:41 98.2 10/25/18 08:00 18 10/25/18 08:00 97.9 83 18 127/87 (100) 97 10/25/18 04:00 98.2 74 18 120/70 (87) 98 10/25/18 04:00 18 10/25/18 00:00 18 10/25/18 00:00 97.9 71 18 116/72 (87) 98 10/24/18 21:00 Room Air 10/24/18 20:00 18 10/24/18 20:00 98.1 74 18 121/74 (90) 98 10/24/18 16:00 18 10/24/18 16:00 97.5 72 18 124/82 (96) 99 Intake and Output 10/24/18 10/25/18 19:00 07:00 Intake Total 2517 ml 240 ml Output Total 1280 ml 1635 ml Balance 1237 ml -1395 ml Intake Oral 1258 ml 240 ml IV Total 1259 ml Output Urine Total 500 ml 1400 ml Other 780 ml 235 ml # Voids 3 4 Laboratory Tests 10/25/18 06:00: White Blood Count 7.7, Red Blood Count 4.01L, Hemoglobin 12.1, Hematocrit 35.9L , Mean Corpuscular Volume 89, Mean Corpuscular Hemoglobin 30.2, Mean Corpuscular Hemoglobin Concent 33.7, Red Cell Distribution Width 12.7, Platelet Count 316, Mean Platelet Volume 9.4, Neutrophils (%) (Auto) 64.7, Lymphocytes (% ) (Auto) 15.5L, Monocytes (%) (Auto) 7.2, Eosinophils (%) (Auto) 11.4H, Basophils (%) (Auto) 1.2, Sodium Level 138, Potassium Level 4.0, Chloride Level 104, Carbon Dioxide Level 21, Anion Gap 13, Blood Urea Nitrogen 16, Creatinine 0.7, Estimat Glomerular Filtration Rate > 60, Glucose Level 128H, Calcium Level 9.5, Phosphorus Level 2.9, Magnesium Level 1.8, Total Bilirubin 0.7, Aspartate Amino Transf (AST/SGOT) 107H, Alanine Aminotransferase (ALT/SGPT) 249H, Alkaline Phosphatase 272H, Total Protein 7.3, Albumin 2.8L, Globulin 4.5, Albumin/Globulin Ratio 0.6L Height (Feet): 5 Height (Inches): 8.00 Weight (Pounds): 125 General Appearance: alert EENT: normal ENT inspection Neck: supple Cardiovascular: normal rate Respiratory/Chest: decreased breath sounds Abdomen: normal bowel sounds, non tender, soft Extremities: non-tender Clarence El MD Oct 25, 2018 13:51
[2018-10-25] MEDS ORDERED: Naloxone 0.4mg/ml Inj IV PRN (14:29)
[2018-10-25] MEDS ORDERED: PCA HYDROmorphone 1mg/ml 30 ML IV PRN (14:29)
[2018-10-25] MEDS ORDERED: Hyoscyamine 0.125mg tab ORAL PRN (14:29)
[2018-10-25] MEDS ORDERED: Rate Change PCA 1 Each MISC PRN (14:30)
--- NOTE | 2018-10-25 15:43 | General Progress Note ---
Progress Note Progress Note AVSS Able to tolerate 40% of clear liquids and gastrostomy 3:3 protocol, with continuous drainage overnight. Occasional gas cramps require levsin, ativan, simethicone. Percocet not helpful. Occasional use of [employer] dilaudid Abdomen soft, mildly distended Urine 1900 Gastrostomy 720 Kock pouch ileo 295 WBC 7700 Hgb 12.1 BMO okay LFTs up Mg 1.8 Albumin up 2.8 Imp. slowly resolving partial SBO Plan: d/c percocet - try [place] 10/325 add supplements to clear liquid diet gastrostomy 5:1 protocol continue TPN Vishnu Cuevas MD Oct 25, 2018 15:43
[2018-10-25 16:00] VITALS: BP 135/82
[2018-10-25 20:00] VITALS: BP 127/91
[2018-10-25] MEDS: HYDROcodone/Acetamin 10/325 tab ORAL PRN (20:53)
[2018-10-25] MEDS: FAT EMULSION 20% IV SCH (20:54)
[2018-10-25] MEDS: TPN IV SCH (20:54)
[2018-10-26] VITALS: BP 113/75
[2018-10-26] MEDS: NovoLOG Insulin Flexpen SUBQ SCH ×4 (00:25→18:30)
[2018-10-26] MEDS: LORazepam 1mg tab SL PRN ×4 (00:34→20:37)
[2018-10-26 04:00] VITALS: BP 129/81
[2018-10-26] MEDS: HYDROcodone/Acetamin 10/325 tab ORAL PRN (04:08)
[2018-10-26] MEDS: Simethicone 80mg tab ORAL PRN ×2 (04:09→08:54)
[2018-10-26] MEDS: PCA shift volume MISC SCH ×2 (07:00→19:00)
[2018-10-26 07:24] LABS: ALANINE AMINOTRANSFERASE 230 U/L (12-78); ALBUMIN 2.6 G/DL (3.4-5.0); ALBUMIN/GLOBULIN RATIO 0.7 (1.0-2.7); ALKALINE PHOSPHATASE 237 U/L (46-116); ANION GAP 5 mmol/L (5-15); ASPARTATE AMINO TRANSFERASE 90 U/L (15-37); BILIRUBIN,TOTAL 0.6 MG/DL (0.2-1.0); BLOOD UREA NITROGEN 15 mg/dL (7-18); CARBON DIOXIDE 28 MMOL/L (21-32); CHLORIDE 106 MMOL/L (98-107); CREATININE 0.7 MG/DL (0.55-1.30); POTASSIUM 4.3 MMOL/L (3.5-5.1); SODIUM 139 MMOL/L (136-145)
[2018-10-26 08:00] VITALS: BP 126/83
[2018-10-26] MEDS: Flonase Nasal Inhaler 16gm NASAL SCH (08:52)
[2018-10-26] MEDS: AZELASTINE NASAL SCH (08:52)
[2018-10-26] MEDS: Pantoprazole Inj IVP SCH (08:52)
[2018-10-26] MEDS ORDERED: Norco 5mg/325mg tab ORAL PRN (10:30)
[2018-10-26] MEDS ORDERED: PCA HYDROmorphone 1mg/ml 30 ML IV PRN (10:30)
[2018-10-26] MEDS ORDERED: Rate Change PCA 1 Each MISC PRN (10:30)
--- NOTE | 2018-10-26 10:40 | General Progress Note ---
Progress Note Progress Note AVSS Feeling better with intermittent gas pain cramping. Tolerating clear liquids and supplements Abdomen soft Urine 3000 Gastrostomy 580 Kock pouch ileo 615 Labs ok Imp. Improving partial SBO Plan; Plug gastrostomy continuously continue clear liquids + 3-4 supplements daily hopefully can start Kock pouch self-intubations in AM continue TPN another day Vishnu Cuevas MD Oct 26, 2018 10:40
--- NOTE | 2018-10-26 10:52 | General Progress Note ---
Assessment/Plan Problem List: (1) MALFUNCTIONING JASMINE POUCH (2) Transaminitis ICD Codes: R74.0 - Nonspecific elevation of levels of transaminase and lactic acid dehydrogenase [LDH] SNOMED: 295357574, 852543566 (3) Abdominal pain ICD Codes: R10.9 - Unspecified abdominal pain SNOMED: 36955163 (4) Ulcerative colitis ICD Codes: K51.90 - Ulcerative colitis, unspecified, without complications SNOMED: 82178651 Assessment/Plan had good pouch out put still elevated LFTS, no dilated CBD on MRCP add prn Bentyl fu surg recs normal CA 19-9 fu Subjective ROS Limited/Unobtainable: Yes Allergies: Coded Allergies: METRONIDAZOLE (Verified Allergy, Mild, 09/18/18) HEADACHE, DIZZINESS Uncoded Allergies: hay fever (Allergy, Unknown, 09/24/16) Subjective abd cramps Objective Last 24 Hour Vital Signs Date Time Temp Pulse Resp B/P (MAP) Pulse Ox O2 Delivery O2 Flow Rate FiO2 10/26/18 08:00 19 10/26/18 08:00 97.6 77 19 126/83 (97) 99 10/26/18 04:00 97.9 71 18 129/81 (97) 97 10/26/18 04:00 18 10/26/18 00:00 97.8 84 18 113/75 (88) 97 10/26/18 00:00 18 10/25/18 21:00 Room Air 10/25/18 20:00 18 10/25/18 20:00 98.1 75 18 127/91 (103) 99 10/25/18 16:00 97.7 72 19 135/82 (99) 98 10/25/18 16:00 18 10/25/18 12:00 98.0 72 18 130/78 (95) 97 10/25/18 12:00 18 Intake and Output 10/25/18 10/26/18 18:59 06:59 Intake Total 954 ml 1478 ml Output Total 2430 ml 765 ml Balance -1476 ml 713 ml Intake Oral 354 ml IV Total 600 ml 1478 ml Output Urine Total 1400 ml 600 ml Other 1030 ml 165 ml # Voids 4 Laboratory Tests 10/26/18 05:10: Sodium Level 139, Potassium Level 4.3, Chloride Level 106, Carbon Dioxide Level 28, Anion Gap 5, Blood Urea Nitrogen 15, Creatinine 0.7, Estimat Glomerular Filtration Rate > 60, Glucose Level 123H, Calcium Level 9.0, Total Bilirubin 0.6 , Aspartate Amino Transf (AST/SGOT) 90H, Alanine Aminotransferase (ALT/SGPT) 230H, Alkaline Phosphatase 237H, Total Protein 6.5, Albumin 2.6L, Globulin 3.9, Albumin/Globulin Ratio 0.7L, Hepatitis A IgM Antibody [Pending], Hepatitis B Surface Antigen [Pending], Hepatitis B Core IgM Antibody [Pending], Hepatitis C Antibody [Pending] Height (Feet): 5 Height (Inches): 8.00 Weight (Pounds): 125 General Appearance: alert EENT: normal ENT inspection Neck: supple Cardiovascular: normal rate Respiratory/Chest: decreased breath sounds Abdomen: soft, hypoactive bowel sounds, other - GT and ilostomy in place Extremities: non-tender Clarence El MD Oct 26, 2018 10:52
[2018-10-26] MEDS: NS w/KCl 40mEq 1,000 ML IV SCH (10:53)
[2018-10-26] MEDS ORDERED: Dicyclomine HCl 10mg/5ml oral soln ORAL PRN (11:00)
[2018-10-26 12:00] VITALS: BP 128/88
[2018-10-26] MEDS ORDERED: Hydromorphone 0.5mg/0.5ml inj IVP PRN (15:15)
[2018-10-26 16:00] VITALS: BP 124/78
[2018-10-26] MEDS: traMADol 50mg tab ORAL PRN (17:48)
[2018-10-26 20:00] VITALS: BP 107/66
[2018-10-26] MEDS: FAT EMULSION 20% IV SCH (20:22)
[2018-10-26] MEDS: TPN IV SCH (20:22)
[2018-10-27] MEDS: NovoLOG Insulin Flexpen SUBQ SCH ×4 (00:20→19:52)
[2018-10-27] MEDS: traMADol 50mg tab ORAL PRN ×3 (00:50→14:06)
[2018-10-27 04:00] VITALS: BP 122/72
[2018-10-27] MEDS: NS w/KCl 40mEq 1,000 ML IV SCH (04:02)
[2018-10-27] MEDS: LORazepam 1mg tab SL PRN ×3 (04:26→19:35)
[2018-10-27] MEDS: PCA shift volume MISC SCH (07:05)
[2018-10-27 08:00] VITALS: BP 127/82
[2018-10-27] MEDS: Pantoprazole Inj IVP SCH (08:35)
[2018-10-27] MEDS: Flonase Nasal Inhaler 16gm NASAL SCH (08:36)
[2018-10-27] MEDS: AZELASTINE NASAL SCH (08:36)
--- NOTE | 2018-10-27 10:16 | General Progress Note ---
Progress Note Progress Note AVSS Tolerating clear liquids with 2-3 Boost or ensure. tolerated continuous plugging of gastrostomy. Tolerating Tramadol much better than Girard with good relief Oral intake total 2000cc Abdomen soft, non-distended Urine 2900 Gastrostomy 0 BCIR ileo 690 Imp. 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
--- NOTE | 2018-10-27 11:14 | General Progress Note ---
Assessment/Plan Problem List: (1) MALFUNCTIONING JASMINE POUCH (2) Transaminitis ICD Codes: R74.0 - Nonspecific elevation of levels of transaminase and lactic acid dehydrogenase [LDH] SNOMED: 612438688, 541906240 (3) Abdominal pain ICD Codes: R10.9 - Unspecified abdominal pain SNOMED: 67369205 (4) Ulcerative colitis ICD Codes: K51.90 - Ulcerative colitis, unspecified, without complications SNOMED: 10632020 Assessment/Plan had good pouch out put still elevated LFTS, no dilated CBD on MRCP prn Bentyl fu surg recs normal CA 19-9 fu Subjective ROS Limited/Unobtainable: Yes Allergies: Coded Allergies: METRONIDAZOLE (Verified Allergy, Mild, 09/18/18) HEADACHE, DIZZINESS Uncoded Allergies: hay fever (Allergy, Unknown, 09/24/16) Subjective abd cramps overall feeling better Objective Last 24 Hour Vital Signs Date Time Temp Pulse Resp B/P (MAP) Pulse Ox O2 Delivery O2 Flow Rate FiO2 10/27/18 09:06 97.8 10/27/18 09:00 Room Air 10/27/18 08:00 18 10/27/18 08:00 97.8 81 18 127/82 (97) 98 10/27/18 04:00 18 10/27/18 04:00 98.7 80 18 122/72 (89) 96 10/27/18 00:00 18 10/26/18 21:00 Room Air 10/26/18 20:00 98.4 79 19 107/66 (80) 97 10/26/18 20:00 18 10/26/18 16:00 19 10/26/18 16:00 98.6 82 19 124/78 (93) 96 10/26/18 13:56 97.6 10/26/18 12:00 19 10/26/18 12:00 97.9 78 19 128/88 (101) 99 Intake and Output 10/26/18 10/27/18 19:00 07:00 Intake Total 3200 ml 1548 ml Output Total 1195 ml 2395 ml Balance 2005 ml -847 ml Intake Oral 1922 ml 120 ml IV Total 1278 ml 1428 ml Output Urine Total 800 ml 2100 ml Other 395 ml 295 ml # Voids 3 Height (Feet): 5 Height (Inches): 8.00 Weight (Pounds): 125 General Appearance: alert EENT: normal ENT inspection Neck: supple Cardiovascular: normal rate Respiratory/Chest: decreased breath sounds, other - GT and JT in place Abdomen: non tender, soft Extremities: non-tender Clarence El MD Oct 27, 2018 11:14
[2018-10-27 12:00] VITALS: BP 123/82
[2018-10-27 16:00] VITALS: BP 117/70
[2018-10-27] MEDS: Tylenol #3 tab (300mg/30mg) ORAL PRN (17:22)
[2018-10-27 20:00] VITALS: BP 116/69
[2018-10-27] MEDS: HYDROmorphone 1mg/ml Carpuject SUBQ PRN (20:36)
[2018-10-28 04:00] VITALS: BP 122/70
[2018-10-28] MEDS: LORazepam 1mg tab SL PRN ×3 (04:22→22:29)
[2018-10-28 04:47] LABS: BASOPHILS % (AUTO) 1.7 % (0.0-2.0); EOSINOPHILS % (AUTO) 12.9 % (0.0-3.0); HEMATOCRIT 33.4 % (37.0-47.0); HEMOGLOBIN 11.3 G/DL (12.0-16.0); LYMPHOCYTES % (AUTO) 15.2 % (20.0-45.0); MEAN CORPUSCULAR VOLUME 89 FL (80-99); MONOCYTES % (AUTO) 8.4 % (1.0-10.0); NEUTROPHILS % (AUTO) 61.8 % (45.0-75.0); PLATELET COUNT 264 K/UL (150-450); RED BLOOD COUNT 3.73 M/UL (4.20-5.40); RED CELL DISTRIBUTION WIDTH 13.2 % (11.6-14.8)
[2018-10-28 05:01] LABS: ALANINE AMINOTRANSFERASE 262 U/L (12-78); ALBUMIN 2.8 G/DL (3.4-5.0); ALBUMIN/GLOBULIN RATIO 0.7 (1.0-2.7); ALKALINE PHOSPHATASE 278 U/L (46-116); ANION GAP 9 mmol/L (5-15); ASPARTATE AMINO TRANSFERASE 95 U/L (15-37); BILIRUBIN,TOTAL 0.6 MG/DL (0.2-1.0); BLOOD UREA NITROGEN 15 mg/dL (7-18); CALCIUM 9.5 MG/DL (8.5-10.1); CARBON DIOXIDE 27 MMOL/L (21-32); CHLORIDE 103 MMOL/L (98-107); CREATININE 0.8 MG/DL (0.55-1.30); PHOSPHORUS 3.8 MG/DL (2.5-4.9); POTASSIUM 4.2 MMOL/L (3.5-5.1); SODIUM 138 MMOL/L (136-145)
[2018-10-28] MEDS: HYDROmorphone 1mg/ml Carpuject SUBQ PRN ×2 (07:20→14:55)
[2018-10-28 08:00] VITALS: BP 129/82
[2018-10-28] MEDS: Flonase Nasal Inhaler 16gm NASAL SCH (08:59)
[2018-10-28] MEDS: AZELASTINE NASAL SCH (08:59)
--- NOTE | 2018-10-28 09:39 | General Progress Note ---
Progress Note Progress Note VSS Tolerating clear liquids + 6 supplements daily to maintain nutrition. Only pain is when Kock pouch ileo catheter clogs and her pouch distends. Abdomen soft Urine 2550 Kock pouch ileo 690 Labs all okay except elevated LFT enzymes Imp. Improving Plan: Start RN supervised Kock Pouch self-intubations q3h am to hs and prn f/u labs with TPN d/c'd will remove gastrostomy later today Vishnu Cuevas MD Oct 28, 2018 09:39
--- NOTE | 2018-10-28 11:06 | GI Progress Note ---
Assessment/Plan Problems: (1) MALFUNCTIONING JASMINE POUCH (2) Abdominal pain ICD Codes: R10.9 - Unspecified abdominal pain SNOMED: 75359824 (3) Transaminitis ICD Codes: R74.0 - Nonspecific elevation of levels of transaminase and lactic acid dehydrogenase [LDH] SNOMED: 754584978, 751483981 (4) MALFUNCTIONING JASMINE POUCH Status: stable Status Narrative Discussed with Dr. El Assessment/Plan Postoperative ileus MRCP ordered to rule out primary sclerosing cholangitis >>negative Abdominal pelvis CT reviewed >> slow transit of contrast through the anastomosis , although the possibility of partial distal obstruction cannot be completely excluded Status post pouch endoscopy SUMMARY OF FINDINGS: Unable to access proximal small bowel to the pouch,only few centimeters of distal small bowel was examined. The pouchseemed to be intact without any obvious bleeding. RECOMMENDATIONS: had good pouch out put still elevated LFTS, no dilated CBD on MRCP prn Bentyl fu surg recs normal CA 19-9 The patient was seen and examined at bedside and all new and available data was reviewed in the patients chart. I agree with the above findings, impression and plan. (Patient seen earlier today. Signature stamp does not reflect patient encounter time.). - Clarence El MD Subjective Subjective tolerating clear liquids + 6 supplements daily to maintain nutrition. Only pain is when Kock pouch ileo catheter clogs and her pouch distends. Objective Last 24 Hour Vital Signs Date Time Temp Pulse Resp B/P (MAP) Pulse Ox O2 Delivery O2 Flow Rate FiO2 10/28/18 09:00 Room Air 10/28/18 08:00 98.3 82 19 129/82 (98) 99 10/28/18 04:00 98.2 80 18 122/70 (87) 97 10/27/18 21:00 Room Air 10/27/18 20:00 98.4 75 18 116/69 (85) 96 10/27/18 17:52 98.4 10/27/18 16:00 98.4 75 18 117/70 (86) 97 10/27/18 12:00 98.1 88 18 123/82 (96) 98 Intake and Output 10/27/18 10/28/18 19:00 07:00 Intake Total 2207 ml 309 ml Output Total 1860 ml 1380 ml Balance 347 ml -1071 ml Intake Oral 1279 ml 240 ml IV Total 928 ml 69 ml Output Urine Total 1400 ml 1150 ml Other 460 ml 230 ml # Voids 3 Laboratory Tests Test 10/28/18 04:15 White Blood Count 9.0 K/UL (4.8-10.8) Red Blood Count 3.73 M/UL (4.20-5.40) L Hemoglobin 11.3 G/DL (12.0-16.0) L Hematocrit 33.4 % (37.0-47.0) L Mean Corpuscular Volume 89 FL (80-99) Mean Corpuscular Hemoglobin 30.1 PG (27.0-31.0) Mean Corpuscular Hemoglobin Concent 33.7 G/DL (32.0-36.0) Red Cell Distribution Width 13.2 % (11.6-14.8) Platelet Count 264 K/UL (150-450) Mean Platelet Volume 8.3 FL (6.5-10.1) Neutrophils (%) (Auto) 61.8 % (45.0-75.0) Lymphocytes (%) (Auto) 15.2 % (20.0-45.0) L Monocytes (%) (Auto) 8.4 % (1.0-10.0) Eosinophils (%) (Auto) 12.9 % (0.0-3.0) H Basophils (%) (Auto) 1.7 % (0.0-2.0) Sodium Level 138 MMOL/L (136-145) Potassium Level 4.2 MMOL/L (3.5-5.1) Chloride Level 103 MMOL/L (98-107) Carbon Dioxide Level 27 MMOL/L (21-32) Anion Gap 9 mmol/L (5-15) Blood Urea Nitrogen 15 mg/dL (7-18) Creatinine 0.8 MG/DL (0.55-1.30) Estimat Glomerular Filtration Rate > 60 mL/min (>60) Glucose Level 95 MG/DL (74-106) Calcium Level 9.5 MG/DL (8.5-10.1) Phosphorus Level 3.8 MG/DL (2.5-4.9) Magnesium Level 1.9 MG/DL (1.8-2.4) Total Bilirubin 0.6 MG/DL (0.2-1.0) Aspartate Amino Transf (AST/SGOT) 95 U/L (15-37) H Alanine Aminotransferase (ALT/SGPT) 262 U/L (12-78) H Alkaline Phosphatase 278 U/L (46-116) H Total Protein 6.6 G/DL (6.4-8.2) Albumin 2.8 G/DL (3.4-5.0) L Globulin 3.8 g/dL Albumin/Globulin Ratio 0.7 (1.0-2.7) L Height (Feet): 5 Height (Inches): 8.00 Weight (Pounds): 125 General Appearance: WD/WN, no apparent distress, alert Cardiovascular: normal rate Respiratory/Chest: normal breath sounds, no respiratory distress Abdominal Exam: normal bowel sounds, non tender, soft Extremities: normal range of motion, non-tender Renetta Mccall NP Oct 28, 2018 11:06
[2018-10-28 12:00] VITALS: BP 116/73
[2018-10-28] MEDS: Tylenol #3 tab (300mg/30mg) ORAL PRN (13:17)
[2018-10-28 16:00] VITALS: BP 142/81
[2018-10-28] MEDS ORDERED: HYDROmorphone 2mg tab ORAL PRN (16:00)
[2018-10-28] MEDS ORDERED: Ascorbic Acid 500mg tab ORAL PRN (16:00)
[2018-10-28 20:00] VITALS: BP 134/76
[2018-10-28] MEDS ORDERED: Tubing IV Secondary IV ONE (20:05)
[2018-10-28] MEDS ORDERED: NS Irrig 1000ml ONE ×3 (20:05→20:49)
[2018-10-29] MEDS: HYDROmorphone 1mg/ml Carpuject SUBQ PRN (02:40)
[2018-10-29 04:00] VITALS: BP 111/73
[2018-10-29 05:20] LABS: HEMATOCRIT 35.5 % (37.0-47.0); HEMOGLOBIN 11.9 G/DL (12.0-16.0); LYMPHOCYTES % (AUTO) 10.8 % (20.0-45.0); MEAN CORPUSCULAR VOLUME 89 FL (80-99); MONOCYTES % (AUTO) 7.3 % (1.0-10.0); NEUTROPHILS % (AUTO) 72.9 % (45.0-75.0); PLATELET COUNT 276 K/UL (150-450); RED BLOOD COUNT 3.98 M/UL (4.20-5.40); WHITE BLOOD COUNT 10.9 K/UL (4.8-10.8)
[2018-10-29 05:47] LABS: ALANINE AMINOTRANSFERASE 229 U/L (12-78); ALBUMIN 2.9 G/DL (3.4-5.0); ALBUMIN/GLOBULIN RATIO 0.7 (1.0-2.7); ALKALINE PHOSPHATASE 268 U/L (46-116); ANION GAP 6 mmol/L (5-15); ASPARTATE AMINO TRANSFERASE 75 U/L (15-37); BILIRUBIN,TOTAL 0.5 MG/DL (0.2-1.0); BLOOD UREA NITROGEN 13 mg/dL (7-18); CALCIUM 9.1 MG/DL (8.5-10.1); CARBON DIOXIDE 27 MMOL/L (21-32); CHLORIDE 105 MMOL/L (98-107); CREATININE 0.8 MG/DL (0.55-1.30); POTASSIUM 4.2 MMOL/L (3.5-5.1); SODIUM 137 MMOL/L (136-145)
[2018-10-29] MEDS: Simethicone 80mg tab ORAL PRN ×3 (05:57→17:54)
[2018-10-29 08:00] VITALS: BP 125/75
--- NOTE | 2018-10-29 08:23 | General Progress Note ---
Progress Note Progress Note AVSS Still c/o gas pains and cramps not relieved by Dilaudid 2mg po Not tolerating Ensure due to increased cramps Abdomen soft, not distended, not tender po intake 2057 Urine 2200 Kock pouch ileo 260 (prior day was 690) Intubating her Kock pouch without difficulty WBC 10,900 Hgb 11.9 BUN 13 Cr 0.8 LFT enzymes decreased Imp. 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
[2018-10-29] MEDS: Flonase Nasal Inhaler 16gm NASAL SCH (08:35)
[2018-10-29] MEDS: HYDROmorphone 2mg tab ORAL PRN ×3 (08:35→22:06)
[2018-10-29] MEDS: AZELASTINE NASAL SCH (08:36)
--- NOTE | 2018-10-29 10:58 | Diagnostic Imaging Report ---
Indication: Abdominal pain Technique: Supine view of the abdomen Comparison: 10/16/2018, research and development engineer image from CT scan dated 08/29/2019 Findings: Small bowel loops are diffusely gas-filled, upper limits of normal in caliber, slightly less prominent than on prior study of 10/16/2018. Caliber small bowel loops is also probably slightly decreased from prior CT scan of 10/22/2018 No unusual masses or calcifications. Surgical emil are seen in the pelvis, consistent with known continent ileostomy Impression: Diffusely gas-filled upper limits of normal caliber small bowel loops, appearing slightly less prominent than on 10/16/2018 and on the research and development engineer film of 10/22/2018 CT scan. Findings may be on the basis of ileus or mild distal small bowel obstruction.
[2018-10-29 11:40] VITALS: BP 128/78
[2018-10-29] MEDS: LORazepam 1mg tab SL PRN (12:10)
--- NOTE | 2018-10-29 12:50 | GI Progress Note ---
Assessment/Plan Problems: (1) MALFUNCTIONING JASMINE POUCH (2) Abdominal pain ICD Codes: R10.9 - Unspecified abdominal pain SNOMED: 55428836 (3) Transaminitis ICD Codes: R74.0 - Nonspecific elevation of levels of transaminase and lactic acid dehydrogenase [LDH] SNOMED: 577537589, 959837631 (4) MALFUNCTIONING JASMINE POUCH Status: stable, progressing Status Narrative Discussed with Dr. El Assessment/Plan Postoperative ileus MRCP ordered to rule out primary sclerosing cholangitis >>negative Abdominal pelvis CT reviewed >> slow transit of contrast through the anastomosis , although the possibility of partial distal obstruction cannot be completely excluded Status post pouch endoscopy SUMMARY OF FINDINGS: Unable to access proximal small bowel to the pouch,only few centimeters of distal small bowel was examined. The pouchseemed to be intact without any obvious bleeding. had good pouch out put still elevated LFTS, no dilated CBD on MRCP RECOMMENDATIONS: Symptomatic treatment prn Bentyl normal CA 19-9 Advance diet per surgery Follow labs The patient was seen and examined at bedside and all new and available data was reviewed in the patients chart. I agree with the above findings, impression and plan. (Patient seen earlier today. Signature stamp does not reflect patient encounter time.). - Clarence El MD Subjective Subjective tolerating clear liquids + 6 supplements daily to maintain nutrition. Still has complaint of abdominal pain and cramping Objective Last 24 Hour Vital Signs Date Time Temp Pulse Resp B/P (MAP) Pulse Ox O2 Delivery O2 Flow Rate FiO2 10/29/18 11:40 98.3 78 18 128/78 (95) 100 10/29/18 09:05 98.0 10/29/18 09:00 Room Air 10/29/18 08:00 98.9 95 18 125/75 (92) 96 10/29/18 04:00 98.0 75 18 111/73 (86) 100 10/28/18 21:00 Room Air 10/28/18 20:00 99.0 80 18 134/76 (95) 99 10/28/18 16:00 98.3 88 17 142/81 (101) 96 Intake and Output 10/28/18 10/29/18 19:00 07:00 Intake Total 1578 ml 480 ml Output Total 1630 ml 830 ml Balance -52 ml -350 ml Intake Oral 1578 ml 480 ml Output Urine Total 1400 ml 800 ml Other 230 ml 30 ml Laboratory Tests Test 10/29/18 05:10 White Blood Count 10.9 K/UL (4.8-10.8) H Red Blood Count 3.98 M/UL (4.20-5.40) L Hemoglobin 11.9 G/DL (12.0-16.0) L Hematocrit 35.5 % (37.0-47.0) L Mean Corpuscular Volume 89 FL (80-99) Mean Corpuscular Hemoglobin 30.0 PG (27.0-31.0) Mean Corpuscular Hemoglobin Concent 33.6 G/DL (32.0-36.0) Red Cell Distribution Width 13.0 % (11.6-14.8) Platelet Count 276 K/UL (150-450) Mean Platelet Volume 8.3 FL (6.5-10.1) Neutrophils (%) (Auto) 72.9 % (45.0-75.0) Lymphocytes (%) (Auto) 10.8 % (20.0-45.0) L Monocytes (%) (Auto) 7.3 % (1.0-10.0) Eosinophils (%) (Auto) 8.0 % (0.0-3.0) H Basophils (%) (Auto) 1.0 % (0.0-2.0) Sodium Level 137 MMOL/L (136-145) Potassium Level 4.2 MMOL/L (3.5-5.1) Chloride Level 105 MMOL/L (98-107) Carbon Dioxide Level 27 MMOL/L (21-32) Anion Gap 6 mmol/L (5-15) Blood Urea Nitrogen 13 mg/dL (7-18) Creatinine 0.8 MG/DL (0.55-1.30) Estimat Glomerular Filtration Rate > 60 mL/min (>60) Glucose Level 105 MG/DL (74-106) Calcium Level 9.1 MG/DL (8.5-10.1) Total Bilirubin 0.5 MG/DL (0.2-1.0) Aspartate Amino Transf (AST/SGOT) 75 U/L (15-37) H Alanine Aminotransferase (ALT/SGPT) 229 U/L (12-78) H Alkaline Phosphatase 268 U/L (46-116) H Total Protein 7.0 G/DL (6.4-8.2) Albumin 2.9 G/DL (3.4-5.0) L Globulin 4.1 g/dL Albumin/Globulin Ratio 0.7 (1.0-2.7) L Height (Feet): 5 Height (Inches): 8.00 Weight (Pounds): 125 General Appearance: WD/WN, no apparent distress, alert Cardiovascular: normal rate Respiratory/Chest: normal breath sounds, no respiratory distress Abdominal Exam: normal bowel sounds, non tender, soft Extremities: normal range of motion, non-tender Renetta Mccall NP Oct 29, 2018 12:50
[2018-10-29 16:16] VITALS: BP 113/72
[2018-10-29 20:00] VITALS: BP 115/70
[2018-10-30 06:32] LABS: BASOPHILS % (AUTO) 1.4 % (0.0-2.0); EOSINOPHILS % (AUTO) 6.1 % (0.0-3.0); HEMATOCRIT 34.2 % (37.0-47.0); HEMOGLOBIN 11.7 G/DL (12.0-16.0); LYMPHOCYTES % (AUTO) 19.1 % (20.0-45.0); MEAN CORPUSCULAR VOLUME 89 FL (80-99); MONOCYTES % (AUTO) 9.6 % (1.0-10.0); NEUTROPHILS % (AUTO) 63.8 % (45.0-75.0); PLATELET COUNT 283 K/UL (150-450); RED BLOOD COUNT 3.85 M/UL (4.20-5.40); RED CELL DISTRIBUTION WIDTH 12.8 % (11.6-14.8); WHITE BLOOD COUNT 7.8 K/UL (4.8-10.8)
[2018-10-30 07:02] LABS: ANION GAP 10 mmol/L (5-15); BLOOD UREA NITROGEN 15 mg/dL (7-18); CALCIUM 9.6 MG/DL (8.5-10.1); CARBON DIOXIDE 25 MMOL/L (21-32); CHLORIDE 103 MMOL/L (98-107); CREATININE 0.9 MG/DL (0.55-1.30); PHOSPHORUS 4.6 MG/DL (2.5-4.9); POTASSIUM 3.7 MMOL/L (3.5-5.1); SODIUM 138 MMOL/L (136-145)
[2018-10-30 08:00] VITALS: BP 105/68
[2018-10-30] MEDS: Flonase Nasal Inhaler 16gm NASAL SCH (08:26)
[2018-10-30] MEDS: AZELASTINE NASAL SCH (08:26)
--- NOTE | 2018-10-30 10:45 | GI Progress Note ---
Assessment/Plan Problems: (1) MALFUNCTIONING JASMINE POUCH (2) Abdominal pain ICD Codes: R10.9 - Unspecified abdominal pain SNOMED: 91633659 (3) Transaminitis ICD Codes: R74.0 - Nonspecific elevation of levels of transaminase and lactic acid dehydrogenase [LDH] SNOMED: 442284156, 610353966 (4) MALFUNCTIONING JASMINE POUCH Status: stable Status Narrative Discussed with Dr. El Assessment/Plan Postoperative ileus MRCP ordered to rule out primary sclerosing cholangitis >>negative Abdominal pelvis CT reviewed >> slow transit of contrast through the anastomosis , although the possibility of partial distal obstruction cannot be completely excluded Status post pouch endoscopy SUMMARY OF FINDINGS: Unable to access proximal small bowel to the pouch,only few centimeters of distal small bowel was examined. The pouchseemed to be intact without any obvious bleeding. had good pouch out put still elevated LFTS, no dilated CBD on MRCP RECOMMENDATIONS: Symptomatic treatment prn Bentyl normal CA 19-9 Advance diet per surgery Follow labs Prescription given to patient - VSL #3 for abdominal bloating - Bentyl prn for abdominal spasms Outpatient GI follow-up The patient was seen and examined at bedside and all new and available data was reviewed in the patients chart. I agree with the above findings, impression and plan. (Patient seen earlier today. Signature stamp does not reflect patient encounter time.). - Clarence El MD Subjective Subjective tolerating clear liquids + 6 supplements daily to maintain nutrition. Still has complaint of abdominal pain and cramping, states that Bentyl has helped with the abdominal cramping Objective Last 24 Hour Vital Signs Date Time Temp Pulse Resp B/P (MAP) Pulse Ox O2 Delivery O2 Flow Rate FiO2 10/29/18 21:00 Room Air 10/29/18 20:00 99.2 73 18 115/70 (85) 96 10/29/18 18:45 98.9 10/29/18 16:16 98.9 80 18 113/72 (86) 98 10/29/18 11:40 98.3 78 18 128/78 (95) 100 Intake and Output 10/29/18 10/30/18 19:00 07:00 Intake Total 840 ml 680 ml Output Total 1250 ml 870 ml Balance -410 ml -190 ml Intake Oral 840 ml 680 ml Output Urine Total 900 ml 650 ml Other 350 ml 220 ml # Voids 5 3 Laboratory Tests Test 10/30/18 05:05 White Blood Count 7.8 K/UL (4.8-10.8) Red Blood Count 3.85 M/UL (4.20-5.40) L Hemoglobin 11.7 G/DL (12.0-16.0) L Hematocrit 34.2 % (37.0-47.0) L Mean Corpuscular Volume 89 FL (80-99) Mean Corpuscular Hemoglobin 30.4 PG (27.0-31.0) Mean Corpuscular Hemoglobin Concent 34.2 G/DL (32.0-36.0) Red Cell Distribution Width 12.8 % (11.6-14.8) Platelet Count 283 K/UL (150-450) Mean Platelet Volume 8.5 FL (6.5-10.1) Neutrophils (%) (Auto) 63.8 % (45.0-75.0) Lymphocytes (%) (Auto) 19.1 % (20.0-45.0) L Monocytes (%) (Auto) 9.6 % (1.0-10.0) Eosinophils (%) (Auto) 6.1 % (0.0-3.0) H Basophils (%) (Auto) 1.4 % (0.0-2.0) Sodium Level 138 MMOL/L (136-145) Potassium Level 3.7 MMOL/L (3.5-5.1) Chloride Level 103 MMOL/L (98-107) Carbon Dioxide Level 25 MMOL/L (21-32) Anion Gap 10 mmol/L (5-15) Blood Urea Nitrogen 15 mg/dL (7-18) Creatinine 0.9 MG/DL (0.55-1.30) Estimat Glomerular Filtration Rate > 60 mL/min (>60) Glucose Level 96 MG/DL (74-106) Calcium Level 9.6 MG/DL (8.5-10.1) Phosphorus Level 4.6 MG/DL (2.5-4.9) Magnesium Level 2.0 MG/DL (1.8-2.4) Height (Feet): 5 Height (Inches): 8.00 Weight (Pounds): 125 General Appearance: WD/WN, no apparent distress, alert Cardiovascular: normal rate Respiratory/Chest: normal breath sounds, no respiratory distress Abdominal Exam: normal bowel sounds, non tender, soft, other - Ileostomy catheter Extremities: normal range of motion, non-tender Renetta Mccall NP Oct 30, 2018 10:45
[2018-10-30] MEDS: HYDROmorphone 2mg tab ORAL PRN (10:55)
[2018-10-30 12:00] VITALS: BP 121/86
--- NOTE | 2018-10-30 12:53 | General Progress Note ---
Progress Note Progress Note Doing well with BCIR diet and self-intubating her Kock pouch. No need for analgesics x 16 hours. Using occasional Ativan Abdomen soft Urine 1550 Kock pouch ileo 570 WBC 7800 Hgb 11.7 BMP - wnl Mg/P -wnl Imp. Much improved Plan: discharge with supplies/instructions/limitations provided/discussed f/u office 11/05 Rx from [facility] and [facility] - patient advised Rx Percocet 5/325 #40 and Ativan 1mg #40 Vishnu Cuevas MD Oct 30, 2018 12:53
[2018-10-30] MEDS: LORazepam 1mg tab SL PRN (13:42)
[2018-10-30] MEDS ORDERED: NS Irrig 1000ml ONE (14:19)
--- NOTE | 2018-10-31 14:02 | Discharge Summary ---
Discharge Summary Discharge Summary _ DATE OF ADMISSION: September 24, 2018 DATE OF DISCHARGE: October 30, 2018 DISCHARGED BY: Dr. Vishnu Cuevas CONSULTANTS: Dr. Francisco El HISTORY OF PRESENT ILLNESS: The patient is a 68-year-old female in overall good health admitted urgently with a malfunctioning Kock pouch continent ileostomy with a partially slipped nipple valve scheduled to undergo revision of her Kock pouch. She has been having severe difficulty intubating her pouch 50% of the time about 2 to 3 inches into the stoma and has been having recurring episodes of gross incontinence of stool recently. The patient has a past history of ulcerative colitis and all her operations will be listed at the end of this dictation. She underwent proctocolectomy with Kock pouch in 1984, most recent revision in October 2016 with relocation of the stoma to the left lower quadrant and creation of a new valve and stoma. Postoperatively, she had some intermittent bleeding from an enteroenterostomy anastomosis 30 cm proximal to the pouch and this was controlled with oral Pentasa and resolved. She has had recurring episodes of pouchitis with cramps and diarrhea needing frequent intubations, treated with Cipro or clindamycin or both together. She also takes probiotics. BRIEF HOSPITAL COURSE: Patient was admitted on 09/24/2018, reviewed endoscopic findings and surgical options with patient including pouch revision, pouch resection with new continent ileostomy, pouch resection with conventional La ileostomy which she preferred to avoid. She was admitted and was started on IV hydration, bowel prep, indwelling, pouch catheter was placed to continuous drainage. On 09/25/2018, she underwent laparotomy with revision of pouch and lysis of bowel adhesions. The patient tolerated procedure well and left the operating room in stable condition. On 09/26/2018, she had pain and confusion at times. She complained of bloating. Chest was clear with decreased expansion. Abdomen was soft, mildly distended. Basal continuous infusion of [employer] Dilaudid was discontinued. She was given Toradol IV as needed. She was placed continued n.p.o. On 09/27/2018, she complained of persistent headache and posterior neck pain. She had these recurring problem that was treated by a chiropractor. Abdomen was soft, mildly distended, incision was clean. She was given physical therapy for the neck pain. She was continued on n.p.o. On 09/28/2018, she continued to complain of severe frontal headache and bloating. Stat CT scan of the head was done and was unremarkable. Hemoglobin was low but was stable. She was given Venofer daily. She was given vitamin B12 IM. On 09/29/2018, headache resolved. Abdomen was soft but still mildly distended. She was kept n.p.o. Brock catheter was discontinued. On 09/30/2018, she complained of burning on urination. Abdomen was mildly distended. Abdominal x-ray revealed multiple dilated loops of small bowel. She was started on TPN. On 10/01/2018, she had intermittent severe cramping and gas pains. CT showed dilated loops without obstruction; no seroma/collection; pouch catheter in good position. She was continued on n.p.o. with TPN. She was given second dose of B12. On 10/02/2018, abdominal cramping nearly fully resolved. She had good volume of ileostomy effluent. Kock Pouch catheter came out, reinserted readily. Ileus resolved. She was started on clear liquid diet; denude on TPN and supplemental IV fluids. On 10/03/2018, she was tolerating clear liquid diet but still with intermittent abdominal cramping. She complained of difficulty voiding. Abdomen was still mildly distended and tympanitic. Incision was clean. She was continued on clear liquid diet as tolerated. [employer] was eventually discontinued. Urinalysis and culture was sent to lab. On 10/04/2018, she had persistent urinary symptoms. She had recurring severe intestinal cramping and had emesis the night prior. She was continued on n.p.o. status. [employer] Dilaudid demand dosing was resumed. On 10/05/2018, urine culture showed Enterobacter sensitive to cefepime. Antibiotic was switched to cefepime 1 g IV every 12. Levaquin was discontinued. She was continued on n.p.o. with TPN. On 10/06/2018, patient was afebrile with stable vital signs. She continued to have intermittent significant abdominal cramping and spasms. She was continued on IV antibiotic. On 10/07/2018, abdomen was soft and slightly distended. Incision was healing. A stat CT of the abdomen and pelvis with oral and IV contrast showed partial obstruction at the mid small bowel with dilated proximal and decompressed distal. There was no anatomic abnormality of the urinary tract or bladder. On 10/08/2018, patient felt improved with reduced bowel cramping and distention. There was minimal pain with voiding. She underwent Gastrografin, pouchogram with retrograde small bowel series x-ray. On 10/09/2018, there was no cramping but had return of bladder pain with voiding. Abdomen was more distended. She was continued on n.p.o. with TPN and continuous drainage of Kock pouch. She was given mineral oil 30 cc p.o. twice daily. On 10/10/2018, vital signs were stable. She had much less cramping and only slight pain with voiding. Abdomen was less distended and less tympanitic. Albumin went up to 3.1. She was given a trial of clear liquid diet with 2 additional doses of mineral oil p.o. On 10/11/2018, she was not able to tolerate clear liquids without cramping. She was comfortable when n.p.o. Abdomen remains slightly distended. [place] above. Incision was well-healed. Patient was observed, may eventually need surgery if not improving. On 10/12/2018, she underwent diagnostic laparoscopy with exploratory laparotomy , lysis of adhesion, small bowel resection and gastrostomy tube placement by Dr. Martinez. She tolerated procedure well. There was no immediate postoperative complications noted. On 10/13/2018, dressings were clean and dry. There was no output from G-tube or ileostomy. She was given ice chips. On 10/14/2018, there was no nausea, vomiting, fever or chills. G-tube had a clear minimal output. Ileo tube with green/clear minimal output. Wound was clean dry and intact. She was encouraged use of incentive spirometry. She was encouraged ambulation and out of bed. On 10/15/2018,Kock pouch ileo catheter with only clear drainage - measured against another Brock - sutures were cut and catheter advanced another 2cm into pouch - taped in place. Basal infusion of [employer] caused hallucinations and was discontinued. On 10/16/2018, she had continued cramping and incisional pain. There was no ileostomy output from Kock catheter. There was trace of green color in drainage bag. Stat KUB was ordered. Findings showed unchanged from last examination. On 10/17/2018, she was still having intermittent severe cramping. She was continued on n.p.o. TPN. She was given magnesium IV. On 10/18/2018, she had continued persistent cramping with no output from Kock pouch ileo catheter for the past 24 hours abdomen remains distended. Albumin was 2.2, despite prolonged TPN. GI was consulted. Brock catheter was discontinued. On 10/19/2018, patient was voiding well. MRI of the abdomen was negative for obstruction. Was continued on n.p.o. and TPN. Abdomen was still mildly distended, incision clean. On 10/20/2018 patient had severe intermittent cramping that required Dilaudid. She was ambulating freely. She complained of pain with urination. She was again started on trial of clear liquid diet with Gatorade. She was given simethicone. He was given magnesium infusion. Urine was sent to the lab. 10/21/2018, she had very slowly resolving ileus/SBO. Abdomen was still mildly distended. She was able to tolerate clear liquids and gastrostomy 3:3 protocol. On 10/22/2018, a there was 100 cc output only from the Kock pouch ileo. A stat CT of the abdomen and pelvis with oral contrast revealed dilated loop of bowel proximal to the pouch, with slow transit through into the pouch. On 10/23/2018, she underwent pouch endoscopy, but could not enter afferent bowel. Pouch appeared healthy and well-healed. She had cramping postprocedure that eventually resolved. Urine culture was negative for UTI. 10/24/2018, abdomen was soft with minimal distention. She had slowly resolving partial SBO. She was given clear liquid diet with gastrostomy 3:3 protocol; then on continuous drainage nightly. She was given Percocet 5/3 125 mg prn instead of Dilaudid. On 10/25/2018, she was able to tolerate 40% of clear liquids and gastrostomy 3: 3 protocol, with continuous drainage overnight. Percocet was not helpful. She required occasional use of [employer] Dilaudid. Percocet was discontinued she was given trial of [place]. She was then started on gastrostomy5:1 protocol. She was continued on TPN. On 10/26/2017, she was able to tolerate clear liquids and supplements. She had improving partial SBO. She was continued on TPN. 10/27/2018, she was able to tolerate clear liquids with 2-3 Boost/Ensure. She tolerated continuous plugging of gastrostomy. She was tolerating tramadol much better than [place]. TPN and [employer] were discontinued. On 10/28/2018, she was tolerating clear liquids. She was started on RN supervised Kock pouch self intubations. Gastrostomy tube was removed. On 10/29/2018, she had gas pains and cramps not relieved by Dilaudid p.o. KUB showed diffuse gas-filled upper limits of normal caliber small bowel loops. On 10/30/2018, she was doing well withBCIR diet and self intubating her Kock pouch. She did not require any analgesics x 16 hours. She was eventually cleared for discharge. Follow-up on 11/05/2018. FINAL DIAGNOSES: PREOPERATIVE DIAGNOSES: 1. 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 2. History of ulcerative colitis. 3. Status post multiple abdominal operations. 3.1. Proctocolectomy and Kock pouch 1984. 3.2. Revision of Kock pouch valve 1985. 3.3. Revision of Kock pouch stoma stricture 2007. 3.4. Revision of Kock pouch stoma and access segment in depth 09/25/2016 3.5. Laparotomy with creation of a new valve and stoma with preservation of the Kock pouch and relocation of the stoma to the left lower quadrant 2016 POSTOPERATIVE DIAGNOSES: 1. Malfunctioning Kock pouch continent ileostomy with partially slipped valve 2. History of ulcerative colitis. 3. Status post multiple abdominal operations. 3.1. Proctocolectomy and Kock pouch 1984. 3.2. Revision of Kock pouch valve 1985. 3.3. Revision of Kock pouch stoma stricture 2007. 3.4. Revision of Kock pouch stoma and access segment in depth 09/25/2016. 3.5. Laparotomy with creation of a new valve and stoma with preservation of the Kock pouch and relocation of the stoma to the left lower quadrant 10/13/2016. -Postop ileus -Enterobacter UTI -Small bowel obstruction status post diagnostic laparoscopy with exploratory laparotomy by Dr. Martinez -Status post ileoscopy and pouchoscopy by Dr. El -Severe protein calorie malnutrition OPERATION PERFORMED: Laparotomy with revision of Kock pouch and lysis of small bowel adhesions. (Refer to operative report) DISPOSITION: Patient was discharged home. DISCHARGE MEDICATIONS: Refer to Discharge Medication List. DISCHARGE INSTRUCTIONS: Follow-up on 11/05/2018. I have been assigned to complete a discharge summary on this account, I was not involved with the patient's management. Bettina Bernard NP Oct 31, 2018 14:02
== END 2018-10-30 14:20 | disposition home or self-care (01) | DRG 329 ==
LOC: 3E 09:29
PROC: 02HV33Z Insertion of Infusion Device into Superior Vena Cava, Percutaneous Approach (ICD-10-PCS; principal; 2018-09-24)
PROC: B518ZZA Fluoroscopy of Superior Vena Cava, Guidance (ICD-10-PCS; principal; 2018-09-24)
PROC: 0DN80ZZ Release Small Intestine, Open Approach (ICD-10-PCS; 2018-09-25)
PROC: 0DSB0ZZ Reposition Ileum, Open Approach (ICD-10-PCS; 2018-09-25)
PROC: 0DBB0ZZ Excision of Ileum, Open Approach (ICD-10-PCS; 2018-10-12)
PROC: 0DB80ZZ Excision of Small Intestine, Open Approach (ICD-10-PCS; 2018-10-12)
PROC: 0DH63UZ Insertion of Feeding Device into Stomach, Percutaneous Approach (ICD-10-PCS; 2018-10-12)
PROC: 0DNW0ZZ Release Peritoneum, Open Approach (ICD-10-PCS; 2018-10-12)
PROC: 0DJD8ZZ Inspection of Lower Intestinal Tract, Via Natural or Artificial Opening Endoscopic (ICD-10-PCS; 2018-10-23)
DX: K94.13 Enterostomy malfunction (principal); E43 Unspecified severe protein-calorie malnutrition; K56.7 Ileus, unspecified; J98.11 Atelectasis; N39.0 Urinary tract infection, site not specified; K56.51 Intestinal adhesions [bands], with partial obstruction; K91.850 Pouchitis; K51.90 Ulcerative colitis, unspecified, without complications; Z68.1 Body mass index [BMI] 19.9 or less, adult; M54.5 Low back pain; R74.0 Nonspecific elevation of levels of transaminase and lactic acid dehydrogenase [LDH]; R51 Headache; M54.2 Cervicalgia; Z53.31 Laparoscopic surgical procedure converted to open procedure
CPT/HCPCS: 36415; 36569; 70450; 71045; 72192; 74018; 74019; 74176; 74177; 74181; 74270; 76937; 80048; 80053; 81001; 81003; 82248; 82607; 82746; 82962; 83540; 83735; 84100; 85007; 85025; 85610; 85730; 86705; 86709; 86803; 86850; 86900; 86901; 87086; 87181; 87340; 93005; 94003; 94150; J1815; J2250; J2405; J2710; S0077

== ENCOUNTER 2019-11-26 01:55 | Inpatient (IN) | payer BC ==
[~2019-11-26] VITALS: Ht 170.2 cm; Wt 56.7 kg
[~2019-11-26 01:55] MED LIST changes: +ADVIL200 MG ORAL; +AZELASTINE137 MCG/0. NS; +BUDESONIDE0.5 GM MC; +FLONASE ALLERG9.9 ML NS; +SOMA350 MG PO; +TIZANIDINE HCL4 MG ORAL
[2019-11-26] MEDS ORDERED: HYDROmorphone 1mg/ml Carpuject ONE (02:19)
[2019-11-26] MEDS ORDERED: HYDROmorphone 1mg/ml Carpuject SUBQ SCH (06:43)
[2019-11-26] MEDS ORDERED: Hydromorphone 0.5mg/0.5ml inj IVP PRN (06:44)
--- NOTE | 2019-11-26 06:50 | NUR ---
NURSE NOTES: from admission 0450 to 6AM URINE OUTPUT - 400 KOCK POUCH - 110
[2019-11-26] MEDS ORDERED: MAGNESIUM100 MG PO (07:00)
[2019-11-26] MEDS ORDERED: ESTRACE1 MG VAGIN (07:00)
--- NOTE | 2019-11-26 07:00 | NUR ---
NURSE NOTES: Received patient A&Ox4, ambulatory-steady, from ER via [place]ney with chief complaint of abdominal pain, with kock pouch on left lower quadrant. Upon arrival pt's pain was 3/10 , she said, she was medicated with Dilaudid before coming to the floor. She has ostomy kit with her with Fr. 24 cath, self intubate. Per patient she irrigate with water when doing self-intubation every 6 hrs. Oriented to room, call light in reach, Bed in lowest and lock engaged. Obtained admission orders from Dr. Cuevas.
--- NOTE | 2019-11-26 07:45 | NUR ---
NURSE NOTES: Pt in bed w/ bed in lowest position and lock engaged. Pt A&Ox4, able to make needs known. BCIR stoma intact w/no swelling, no redness, no tender. Bowel sounds hypoactive all quadrants. No respiratory distress noted. Her pain 2/10 at this time. Inserted vitale cath with greek 28 and stool draining in the bag. Call light within reach. will continue to monitor.
[2019-11-26 08:00] VITALS: BP 135/79
--- NOTE | 2019-11-26 08:08 | NUR ---
HAND-OFF: Report given to AURELIO Lagos.
[2019-11-26] MEDS ORDERED: Lidocaine 1% Plain 30 ml INJ PRN (08:13)
[2019-11-26] MEDS ORDERED: Heparin1,000 units/500ml Premix(Conc:2 units/ml) IV PRN (08:15)
[2019-11-26] MEDS ORDERED: Omnipaque-300 100ml vial INJ PRN (08:15)
--- NOTE | 2019-11-26 08:18 | General Progress Note ---
Progress Note Progress Note H&P to be dictated. Patient with history proctocolectomy and Kock pouch for ulcerative colitis, had revision of slipped valve on year ago, followed by laparotomy same admission for SBO and small segment bowel resected. Now 3 episodes in past month of severe abdominal pain with nausea and vomiting, hospitalized twice near her home. CT scans revealed possible stenosis in RUQ at or near prior anastomosis In ER VS stable, WBC 11,000, given dilaudid. Now comfortable, abdomen mildly distended, stoma LLQ . She self-intubated her Kock pouch 1 hour ago with output of enteric fluid Imp: Recurring small bowel obstruction, ? partial, ? resolving now Plan: STAT CT abd+pelvis with po+IV contrast STAT PICC Indwelling Zamorano pouch catheter to continuous drainage Will need laparotomy this admission Vishnu Cuevas MD Nov 26, 2019 08:18
[2019-11-26 08:23] LABS: HEMATOCRIT 44.4 % (37.0-47.0); HEMOGLOBIN 15.5 G/DL (12.0-16.0); RED BLOOD COUNT 4.97 M/UL (4.20-5.40); WHITE BLOOD COUNT 10.1 K/UL (4.8-10.8)
[2019-11-26 08:24] LABS: MEAN CORPUSCULAR VOLUME 89 FL (80-99); PLATELET COUNT 331 K/UL (150-450); RED CELL DISTRIBUTION WIDTH 11.3 % (11.6-14.8)
[2019-11-26 08:25] LABS: BASOPHILS % (AUTO) 1.4 % (0.0-2.0); EOSINOPHILS % (AUTO) 1.3 % (0.0-3.0); LYMPHOCYTES % (AUTO) 29.3 % (20.0-45.0); MONOCYTES % (AUTO) 6.8 % (1.0-10.0); NEUTROPHILS % (AUTO) 61.2 % (45.0-75.0)
[2019-11-26] MEDS ORDERED: D5 1/2NS w/KCl 20mEq 1,000 ML IV SCH (09:00)
[2019-11-26 09:04] LABS: ALANINE AMINOTRANSFERASE 23 U/L (12-78); ALBUMIN 4.3 G/DL (3.4-5.0); ALBUMIN/GLOBULIN RATIO 1.1 (1.0-2.7); ALKALINE PHOSPHATASE 91 U/L (46-116); ANION GAP 13 mmol/L (5-15); ASPARTATE AMINO TRANSFERASE 21 U/L (15-37); BILIRUBIN,TOTAL 0.3 MG/DL (0.2-1.0); BLOOD UREA NITROGEN 22 mg/dL (7-18); CALCIUM 10.7 MG/DL (8.5-10.1); CARBON DIOXIDE 28 MMOL/L (21-32); CHLORIDE 106 MMOL/L (98-107); CREATININE 0.9 MG/DL (0.55-1.30); POTASSIUM 3.4 MMOL/L (3.5-5.1); SODIUM 147 MMOL/L (136-145)
--- NOTE | 2019-11-26 10:00 | NUR ---
NURSE NOTES: Obtained consent sign from pt for CT w/ contrast and PICC line insertion.
--- NOTE | 2019-11-26 10:54 | NUR ---
RADIOLOGY NOTE: LEFT UPPER EXTREMITY PICC LINE PLACED BY DR. HANG PAGAN AT 1020 HRS. FA
--- NOTE | 2019-11-26 11:10 | NUR ---
Pt came back to the unit after CT scan and PICC line insertion with stable condition. Received order from to [facility] to use PICC line for IVF. PICC line patent w/ good blood return. Dressing intact with small amount of blood noted. will continue to monitor..
--- NOTE | 2019-11-26 11:21 | Diagnostic Imaging Report ---
INDICATION: Abdominal pain TECHNIQUE: Continuous helical transaxial imaging of the abdomen and pelvis was obtained from the lung bases to the pubic symphysis during intravenous contrast administration. Coronal 2-D reformats were also obtained. Study obtained in a Siemens sensation [address] Automatic Exposure Control was utilized. Total Dose length Product (DLP): 195.[address] Dose Index Volume (CTDIvol): 4.2 mGy COMPARISON: 10/07/2018 FINDINGS: Lungs: Small hiatal hernia is present. There is mild posterior basal atelectasis.. Liver: Unremarkable Gallbladder/biliary system: No gallstones are identified. There is no evidence of intrahepatic or extrahepatic biliary ductal dilatation. Spleen: Unremarkable Pancreas: Unremarkable Kidneys/Bladder: There is no hydronephrosis. There is a small hypodensity in the left kidney measuring 5 mm likely cystic.. Adrenal glands: Unremarkable Aorta/IVC: Tortuosity of the abdominal aorta and iliac arteries noted with some mural calcification. Bowel: Subtotal colectomy noted. There is a continent ileostomy in the left lower quadrant with the catheter noted. A small amount of contrast is likely present within the pouch. Mild distention of small bowel demonstrated throughout the abdomen without the any imaging evidence for bowel obstruction. There is no evidence of abscess or free fluid. Peritoneum: There is no free fluid. There is a small epigastric ventral abdominal wall hernia containing fat measuring about 2 cm.. Bones: There is narrowing of intervertebral discs and accompanying endplate osteophyte formation. Hypertrophied facet joints also demonstrated. Transitional lumbosacral anatomy noted. IMPRESSION: No acute findings . No evidence of bowel obstruction. Pouch ileostomy noted in the left lower quadrant. This appears unremarkable. Other incidental findings as above. The CT scanner at [facility] is accredited by the [employer] and the scans are performed using dose optimization techniques as appropriate to a performed exam including Automatic Exposure control.
--- NOTE | 2019-11-26 11:25 | Emergency Room Report ---
History of Present Illness General Source: Patient Present Illness HPI Patient presents with 1 hour of severe dif fuse abdominal pain. She has had a continent ileostomy procedure years ago. For the last 3 weeks she has had intermittent bouts of severe abdominal pain. She is been told that she has small bowel obstruction with these. She has been admitted twice recently for 2 days and the small bowel obstruction is been resolved. She spoke with her doctor and he told her to come to the emergency department and to prepare for surgery. The pain is severe and rated 10/10 at this time. Is constant. She drinks some wine prior to the onset of the abdominal pain. No sore throat, chest pain, cough, shortness of breath. No dysuria. There is been no blood in the stool. She emptied the pouch just before coming to the emergency department. History of ulcerative colitis Struve atrial fibrillation post ablation Allergies: Coded Allergies: METRONIDAZOLE (Verified Allergy, Mild, 09/18/18) HEADACHE, DIZZINESS Uncoded Allergies: hay fever (Allergy, Unknown, 09/24/16) Patient History Past Medical History: see triage record Past Surgical History: other - Zamorano pouch Social History: Reports: alcohol use; Denies: smoking, drug use Social History Narrative Retired worked many jobs Reviewed Nursing Documentation: PMH: Agreed; PSxH: Agreed Nursing Documentation-PMH Past Medical History: No History, Except For Hx Cardiac Problems: Yes - AFIB/ HEART ABLATION Hx Cancer: No Hx Gastrointestinal Problems: Yes - abdominal surgeries Hx Neurological Problems: No Review of Systems All Other Systems: negative except mentioned in HPI Physical Exam Vital Signs Date Time Temp Pulse Resp B/P (MAP) Pulse Ox O2 Delivery O2 Flow Rate FiO2 11/26/19 06:31 Room Air 11/26/19 08:00 98.1 72 12 135/79 (97) 95 Sp02 EP Interpretation: reviewed, normal General Appearance: well appearing, GCS 15, non-toxic, mild distress - In pain Head: normocephalic Eyes: bilateral eye normal inspection, bilateral eye PERRL, bilateral eye EOMI ENT: moist mucus membranes Neck: supple Respiratory: lungs clear, normal breath sounds Cardiovascular #1: regular rate, rhythm Cardiovascular #2: 2+ radial (R) Gastrointestinal: normal inspection, soft, no mass, non-distended, no rebound, guarding - Diffuse, tenderness, decreased bowel sounds Genitourinary: no CVA tenderness Musculoskeletal: back normal, normal range of motion, gait/station normal Neurologic: alert, oriented x3, grossly normal Psychiatric: anxious - In pain Skin: no rash Medical Decision Making Diagnostic Impression: Primary Impression: Small bowel obstruction Additional Impression: MALFUNCTIONING ZAMORANO POUCH ER Course Patient presents with severe abdominal pain post continent ileostomy procedure years ago. Differential includes perforation, bowel obstruction, gastroenteritis, pancreatitis, urinary tract infection amongst others. She recently had CT scans abdominal films will be obtained. Also patient evaluated with labs. Patient treated with IV hydration and analgesia. Chest x-ray no infiltrates. Abdomen no masses or abnormal bowel gas patterns. Labs with normal white count and CMP. Elevated BUN. Patient improved with treatment however still has pain. Able to empty her pouch. Due to the severity of pain and the complexity of the postsurgical abdomen patient admitted to medical floor. Laboratory Tests Test 11/26/19 05:00 White Blood Count 10.1 K/UL (4.8-10.8) Red Blood Count 4.97 M/UL (4.20-5.40) Hemoglobin 15.5 G/DL (12.0-16.0) Hematocrit 44.4 % (37.0-47.0) Mean Corpuscular Volume 89 FL (80-99) Mean Corpuscular Hemoglobin 31.1 PG (27.0-31.0) H Mean Corpuscular Hemoglobin Concent 35.0 G/DL (32.0-36.0) Red Cell Distribution Width 11.3 % (11.6-14.8) L Platelet Count 331 K/UL (150-450) Mean Platelet Volume FL (6.5-10.1) Neutrophils (%) (Auto) 61.2 % (45.0-75.0) Lymphocytes (%) (Auto) 29.3 % (20.0-45.0) Monocytes (%) (Auto) 6.8 % (1.0-10.0) Eosinophils (%) (Auto) 1.3 % (0.0-3.0) Basophils (%) (Auto) 1.4 % (0.0-2.0) Sodium Level 147 MMOL/L (136-145) H Potassium Level 3.4 MMOL/L (3.5-5.1) L Chloride Level 106 MMOL/L (98-107) Carbon Dioxide Level 28 MMOL/L (21-32) Anion Gap 13 mmol/L (5-15) Blood Urea Nitrogen 22 mg/dL (7-18) H Creatinine 0.9 MG/DL (0.55-1.30) Estimated Glomerular Filtration Rate > 60 mL/min (>60) Glucose Level 122 MG/DL (74-106) H Calcium Level 10.7 MG/DL (8.5-10.1) H Total Bilirubin 0.3 MG/DL (0.2-1.0) Aspartate Amino Transferase (AST) 21 U/L (15-37) Alanine Aminotransferase (ALT) 23 U/L (12-78) Alkaline Phosphatase 91 U/L (46-116) Total Protein 8.1 G/DL (6.4-8.2) Albumin 4.3 G/DL (3.4-5.0) Globulin 3.8 g/dL Albumin/Globulin Ratio 1.1 (1.0-2.7) Rhythm Strip Diag. Results EP Interpretation: yes Rhythm: NSR, no PVC's, no ectopy Chest X-Ray Diagnostic Results Chest X-Ray Diagnostic Results : Chest X-Ray Ordered: Yes # of Views/Limited/Complete: 1 View Indication: Other Interpretation: no consolidation, no effusion, no pneumothorax Impression: No acute disease Electronically Signed by: Electronically signed by Elliot Wall MD Other X-Ray Diagnostic Results Other X-Ray Diagnostic Results : X-Ray ordered: abd # of Views/Limited Vs Complete: 1 View Indication: Pain Interpretation: nonspecific bowel gas, no sbo, other - DJD Impression: Other Electronically Signed by: Electronically signed by Elliot Wall MD Last Vital Signs Date Time Temp Pulse Resp B/P (MAP) Pulse Ox O2 Delivery O2 Flow Rate FiO2 11/26/19 08:00 98.1 72 12 135/79 (97) 95 11/26/19 06:31 Room Air Status: improved Disposition: ADMITTED INPATIENT Condition: Serious Referrals: Vishnu Cuevas MD (PCP) Elliot Wall MD Nov 26, 2019 11:25
[2019-11-26 11:42] VITALS: BP 136/79
--- NOTE | 2019-11-26 11:55 | Diagnostic Imaging Report ---
Indication: terminal gauger venous access Findings: After the indications, procedure, risks, complications, and alternatives of the procedure were explained, written informed consent was obtained. The left upper extremity was prepped with alcohol. All elements of maximal sterile barrier technique were followed including usage of a cap, mask, sterile gown, sterile gloves, hand hygiene and a large sterile sheet. Sonographic evaluation of the upper extremity was performed demonstrating a patent and compressible basilic vein. Access was obtained under real-time ultrasound guidance (with utilization of sterile gel and sterile probe cover) and digital image was saved and archived. An .018 wire was introduced. Needle exchanged for a 5 Bengali peel-away sheath. Measurements were obtained. A 5 Bengali dual-lumen Power PICC line catheter was cut to 42 cm and introduced over the wire. Peel-away sheath and wire were removed.Catheter was secured to the skin using 2-0 Prolene suture. Both ports aspirate and flush easily. A single fluoroscopic image shows the distal tip in the superior vena cava. Total fluoroscopic time: 13.4 seconds. Impression: Successful placement of an upper extremity PICC line catheter
[2019-11-26] MEDS: D5 1/2NS w/KCl 20mEq 1,000 ML IV SCH ×2 (12:07→18:01)
--- NOTE | 2019-11-26 12:21 | NUR ---
CASE MANAGEMENT: INITIAL REVIEW 69YR OLD FEMALE FROM HOME CC: ABD PAIN WITH N/V SI:RECURRING SMALL BOWEL OBSTRUCTION . MALFUNCTION OF KOCK POUCH 98.1 72 12 135/79 95% ON RA NA+ 147 K+ 3.4 BG 122 CA+ 10.7 IS:IV D5 BOLUS X1 DILAUDID SQ X1 IV ZOFRAN X1 \: 3E MED SURG UNIT DCP: HOME WHEN STABLE PLAN: CONTINUE TO HYDRATE STAT CT abd+pelvis with po+IV contrast STAT PICC Indwelling Zamorano pouch catheter to continuous drainage Will need laparotomy this admission
[2019-11-26] MEDS: HYDROmorphone 1mg/ml Carpuject SUBQ PRN ×2 (12:34→20:53)
[2019-11-26 16:00] VITALS: BP 137/79
--- NOTE | 2019-11-26 16:00 | Pre-op HX & Phy Repo 2 SIG ---
DATE OF ERGENCY ADMISSION FROM EMERGENCY DEPARTMENT: 11/26/2019 HISTORY OF PRESENT ILLNESS: The patient was admitted November 26, 2019 at approximately 2:30 a.m. for severe abdominal pain. The patient is a 69-year-old female in overall good health, who has an original diagnosis of ulcerative colitis and who has undergone proctocolectomy with Kock pouch continent ileostomy with multiple revisions, most recently in September 2018. At that time, she underwent laparotomy with revision of her Kock pouch and lysis of small bowel adhesions on September 25, 2018, but on October 12, 2018 required return to the operating room for persistent worsening early postoperative obstruction and underwent a segmental small bowel resection to release the obstruction in the right upper quadrant. She since did very well until November 04, 2019 when she had the first of several episodes of severe crampy abdominal pain with episodes of nausea and vomiting, but no difficulties with intubating her Kock pouch. She was hospitalized near her home and CT scan of abdomen and pelvis with contrast revealed an obstruction with a point of transition near a previous anastomosis in the right upper quadrant and in the right upper mid abdomen. The patient had a nasogastric tube, and the obstruction resolved spontaneously. She restricted her diet, but had another episode November 25 requiring hospitalization through the emergency room again near her home and again it resolved. She was placed on a strict low residue diet with no roughage of any kind and had recurrent acute abdominal pain with nausea, vomiting the night of November 24 leading her to come to the [facility] emergency room. Her symptoms have relented to some degree and when she catheterizes her Kock pouch she has a small amount of enteric fluid. PAST MEDICAL HISTORY: MEDICATIONS: Occasional ibuprofen. She takes Cipro and clindamycin when she gets pouchitis. In the past, she took Pentasa for pouch inflammation and bleeding which resolved. In the past, she took Myrbetriq for bladder spasms but now takes baking soda every day instead. ALLERGIES TO MEDICATIONS: Flagyl and Ativan. OPERATIONS: In addition to the list at the end of this dictation she has undergone knee and elbow surgery. REVIEW OF SYSTEMS: She has a past history of atrial fibrillation and underwent cardiac ablation in 2012. In January 2018, she developed a perineal pain syndrome and has been treated by Pain Management and injection therapy. PHYSICAL EXAMINATION: GENERAL: She is well developed and somewhat depleted, in mild discomfort despite subcutaneous Dilaudid. HEENT: Within normal limits. LUNGS: Clear. HEART: Regular rhythm. BREASTS: Without masses. ABDOMEN: Soft with a long midline scar. The stoma of her Kock pouch continent ileostomy is low in the left lower quadrant. There is no evidence of abdominal wall hernia. There is mild abdominal distention without significant tenderness. No guarding or rebound. PELVIC: Deferred. RECTAL: Status post proctectomy. EXTREMITIES: Without edema. NEUROLOGIC: Physiologic. IMPRESSION: 1. Recurrent small bowel obstruction likely due to adhesions or anastomotic stricture in the right upper-mid abdomen. 2. History of ulcerative colitis. 3. Status post multiple abdominal operations. 3.1. Proctocolectomy and Kock pouch in 1984. 3.2. Revision of Kock pouch valve in 1985. 3.3. Revision of Kock pouch stoma stricture 2007. 3.4. Revision of Kock pouch stoma and access segment in depth September 25, 2016 3.5. Laparotomy with creation of a new valve and stoma with preservation of the Kock pouch and relocation of the stoma to the left lower quadrant October 13, 2016. 3.6. Laparotomy with revision of Kock pouch slipped valve September 25, 2018 3.7. Laparotomy with release of early postoperative small bowel obstruction and segmental small bowel resection in right upper mid abdomen October 12, 2018. PLAN: The patient will be admitted with IV fluids, NPO and an indwelling catheter placed into her Kock pouch to continuous gravity drainage. If she has continued nausea and vomiting, she will require a nasogastric tube. Her laboratories are pending, but she is likely dehydrated and will be vigorously hydrated. She will need a PICC line placed for stable venous access. She will require laparotomy to relieve this point of obstruction with three episodes in the past several weeks, with preservation of her Kock Pouch Continent Ileostomy Vishnu Cuevas M.D. DR: Popeye JOB#: [id number] CC: MATT
--- NOTE | 2019-11-26 16:16 | Diagnostic Imaging Report ---
Indication: Dyspnea Comparison: 09/24/2018 A single view chest radiograph was obtained. Findings: No definite infiltrate or pulmonary vascular congestion identified. The heart is normal in size. The aorta is mildly enlarged consistent with atherosclerotic vascular disease. The bones are osteopenic. There are thoracic vertebral enthesophytes at multiple levels. Impression: No acute disease
--- NOTE | 2019-11-26 16:20 | Diagnostic Imaging Report ---
Indication: Abdominal pain Comparison: 10/29/2018 Single view of the abdomen obtained Findings: Bowel gas pattern is nonspecific. No mass, ectopic calcifications, or abnormal gas collections are identified. Degenerative changes of the lumbar spine noted. Extensive surgical clips noted in the pelvis. Impression: No acute findings
[2019-11-26] MEDS ORDERED: XIIDRA BOTH EYES (17:04)
[2019-11-26] MEDS ORDERED: BAKING SODA (17:04)
--- NOTE | 2019-11-26 19:30 | NUR ---
NURSE NOTES: RECEIVED PATIENT FROM AURELIO PRADO. PATIENT IS AWAKE, AAOX4, ON ROOM AIR, NO ACUTE DISTRESS NOTED. ILEOSTOMY INTACT, PATENT, DRAINING WELL. PICC LINE NOTED ON LEFT UPPER ARM, DRESSING INTACT AND DRY. BED IS LOCKED AND LOW, BED ALARMS ACTIVE, SIDE RAILS UPX2, AND CALL LIGHT IS WITHIN REACH. WILL CONTINUE TO MONITOR.
--- NOTE | 2019-11-26 19:38 | NUR ---
HAND-OFF: Report given to AURELIO Stanley. Endorsed to please contact MD for sleeping aid & that pt would not like Ativan d/t her becoming dependent on it after last admission.
[2019-11-26 20:00] VITALS: BP_SYST 119; BP_SYST 136; BP_DIAS 84
[2019-11-26] MEDS: Dyna-Hex 2% Top Sol 2oz TOPIC SCH (20:52)
--- NOTE | 2019-11-26 21:00 | NUR ---
NURSE NOTES: CONTACTED AND RECEIVED ORDER FOR RESTORIL 15MG PO QHS.
[2019-11-27] VITALS: BP 136/84
[2019-11-27] MEDS: D5 1/2NS w/KCl 20mEq 1,000 ML IV SCH ×4 (01:50→21:20)
[2019-11-27 04:00] VITALS: BP 120/79
[2019-11-27 06:41] LABS: BASOPHILS % (AUTO) 0.9 % (0.0-2.0); EOSINOPHILS % (AUTO) 3.3 % (0.0-3.0); HEMOGLOBIN 12.5 G/DL (12.0-16.0); LYMPHOCYTES % (AUTO) 16.6 % (20.0-45.0); MEAN CORPUSCULAR VOLUME 91 FL (80-99); MONOCYTES % (AUTO) 7.7 % (1.0-10.0); NEUTROPHILS % (AUTO) 71.5 % (45.0-75.0); PLATELET COUNT 195 K/UL (150-450); RED BLOOD COUNT 3.96 M/UL (4.20-5.40); RED CELL DISTRIBUTION WIDTH 11.4 % (11.6-14.8); WHITE BLOOD COUNT 5.7 K/UL (4.8-10.8)
--- NOTE | 2019-11-27 06:50 | NUR ---
NURSE NOTES: SWABBED PATIENT FOR MRSA NARES. SENT SPECIMEN TO LAB.
[2019-11-27 07:15] LABS: ALANINE AMINOTRANSFERASE 22 U/L (12-78); ALBUMIN 3.2 G/DL (3.4-5.0); ALBUMIN/GLOBULIN RATIO 1.1 (1.0-2.7); ALKALINE PHOSPHATASE 60 U/L (46-116); ANION GAP 10 mmol/L (5-15); ASPARTATE AMINO TRANSFERASE 22 U/L (15-37); BILIRUBIN,TOTAL 0.8 MG/DL (0.2-1.0); BLOOD UREA NITROGEN 7 mg/dL (7-18); CALCIUM 9.1 MG/DL (8.5-10.1); CARBON DIOXIDE 26 MMOL/L (21-32); CHLORIDE 109 MMOL/L (98-107); CREATININE 0.7 MG/DL (0.55-1.30); PHOSPHORUS 3.3 MG/DL (2.5-4.9); POTASSIUM 4.3 MMOL/L (3.5-5.1); SODIUM 145 MMOL/L (136-145)
--- NOTE | 2019-11-27 07:38 | NUR ---
HAND-OFF: Report given to AURELIO Lagos. Patient is in stable condition.
--- NOTE | 2019-11-27 07:45 | NUR ---
NURSE NOTES: Pt sitting in bed w/bed in lowest position and locked. A&Ox4, able to make needs known. No SOB, No acute distress noted. Denies any pain at this time. VSS. PICC line flushed and has good blood return. Brock cath for illeo patent and draining. Call light within reach. Will continue to monitor.
[2019-11-27 08:00] VITALS: BP 119/72
--- NOTE | 2019-11-27 10:02 | Anethesia Preoperative Eval ---
Anesthesia Pre-op PMH/ROS General Date of Evaluation: Nov 27, 2019 Time of Evaluation: 11:33 Anesthesiologist: Diann ASA Score: ASA 3 Mallampati Score Class I : Soft palate, uvula, fauces, pillars visible Class II: Soft palate, uvula, fauces visible Class III: Soft palate, base of uvula visible Class IV: Only hard plate visible Mallampati Classification: Class II Surgeon: Mason Diagnosis: Malfunctioning Jacobson Continent Ileostomy Surgical Procedure: Laparotomy, Release of Bowel Obstruction Anesthesia History: none Family History: no anesthesia problems Allergies: Coded Allergies: METRONIDAZOLE (Verified Allergy, Mild, 09/18/18) HEADACHE, DIZZINESS Uncoded Allergies: hay fever (Allergy, Unknown, 09/24/16) Medications: see eMAR Patient NPO?: Yes Past Medical History Cardiovascular: Reports: HTN, arrhythmia - AFib- cardiac ablation Pulmonary: Reports: other - Bronchitis Gastrointestinal/Genitourinary: Reports: GERD, other - Ulcerative Colitis Neurologic/Psychiatric: Reports: depression/anxiety Hematology/Immune: Reports: anemia PSxH Narrative: 1. Recurrent small bowel obstruction likely due to adhesions or anastomotic stricture in the right upper-mid abdomen. 2. History of ulcerative colitis. 3. Status post multiple abdominal operations. 3.1. Proctocolectomy and Kock pouch in 1984. 3.2. Revision of Kock pouch valve in 1985. 3.3. Revision of Kock pouch stoma stricture 2007. 3.4. Revision of Kock pouch stoma and access segment in depth September 25, 2016. 3.5. Laparotomy with creation of a new valve and stoma with preservation of the Kock pouch and relocation of the stoma to the left lower quadrant October 13, 2016. 3.6. Laparotomy with revision of Kock pouch slipped valve September 25, 2018. 3.7. Laparotomy with release of early postoperative small bowel obstruction and segmental small bowel resection in right upper mid abdomen October 12, 2018. R THR, R TKR, R Wrist SX cardiac Ablation Anesthesia Pre-op Phys. Exam Physician Exam Last Vital Signs Date Time Temp Pulse Resp B/P (MAP) Pulse Ox O2 Delivery O2 Flow Rate FiO2 11/27/19 08:00 98.6 66 20 119/72 (88) 98 11/26/19 21:00 Room Air Constitutional: NAD Neurologic: CN 2-12 intact Cardiovascular: RRR Respiratory: CTA Gastrointestinal: S/NT/ND Airway Exam Mallampati Score: Class II MO: full ROM: limited Teeth: missing, intact Anesthesia Pre-op A/P Labs Hematology Test 11/27/19 04:44 White Blood Count 5.7 K/UL (4.8-10.8) Red Blood Count 3.96 M/UL (4.20-5.40) L Hemoglobin 12.5 G/DL (12.0-16.0) Hematocrit 36.0 % (37.0-47.0) L Mean Corpuscular Volume 91 FL (80-99) Mean Corpuscular Hemoglobin 31.5 PG (27.0-31.0) H Mean Corpuscular Hemoglobin Concent 34.6 G/DL (32.0-36.0) Red Cell Distribution Width 11.4 % (11.6-14.8) L Platelet Count 195 K/UL (150-450) Mean Platelet Volume 5.6 FL (6.5-10.1) L Neutrophils (%) (Auto) 71.5 % (45.0-75.0) Lymphocytes (%) (Auto) 16.6 % (20.0-45.0) L Monocytes (%) (Auto) 7.7 % (1.0-10.0) Eosinophils (%) (Auto) 3.3 % (0.0-3.0) H Basophils (%) (Auto) 0.9 % (0.0-2.0) Chemistry Test 11/27/19 04:44 Sodium Level 145 MMOL/L (136-145) Potassium Level 4.3 MMOL/L (3.5-5.1) Chloride Level 109 MMOL/L (98-107) H Carbon Dioxide Level 26 MMOL/L (21-32) Anion Gap 10 mmol/L (5-15) Blood Urea Nitrogen 7 mg/dL (7-18) Creatinine 0.7 MG/DL (0.55-1.30) Estimat Glomerular Filtration Rate > 60 mL/min (>60) Glucose Level 113 MG/DL (74-106) H Calcium Level 9.1 MG/DL (8.5-10.1) Phosphorus Level 3.3 MG/DL (2.5-4.9) Magnesium Level 1.8 MG/DL (1.8-2.4) Total Bilirubin 0.8 MG/DL (0.2-1.0) Aspartate Amino Transf (AST/SGOT) 22 U/L (15-37) Alanine Aminotransferase (ALT/SGPT) 22 U/L (12-78) Alkaline Phosphatase 60 U/L (46-116) Total Protein 6.0 G/DL (6.4-8.2) L Albumin 3.2 G/DL (3.4-5.0) L Globulin 2.8 g/dL Albumin/Globulin Ratio 1.1 (1.0-2.7) Risk Assessment & Plan Assessment: ASA 3 Plan: GA Status Change Before Surgery: No Pre-Antibiotics Drug: Bruce Dee MD Nov 27, 2019 10:02
[2019-11-27] MEDS ORDERED: IMVEXXY10 MCG VG (11:35)
--- NOTE | 2019-11-27 11:42 | NUR ---
CASE MANAGEMENT: REVIEW 11/27/19 SI:RECURRING SMALL BOWEL OBSTRUCTION . MALFUNCTION OF KOCK POUCH 98.6 66 20 119/72 98% ON RA NA+ 147 K+ 3.4 BG 122 CA+ 10.7 IS:IV D5@150ML/HR DILAUDID SQ Q3HR/PRN KATHIE-HEX 2% TP QD \: 3E MED SURG UNIT DCP: HOME WHEN STABLE PLAN: CONTINUE TO HYDRATE MRSA CX-PENDING
[2019-11-27 12:00] VITALS: BP 129/82
[2019-11-27] MEDS ORDERED: Mineral Oil 30ml ud ORAL SCH (12:09)
[2019-11-27] MEDS ORDERED: PCA Morphine 1mg/ml 30 ML IV PRN (12:12)
--- NOTE | 2019-11-27 12:13 | General Progress Note ---
Progress Note Progress Note AVSS Persistent mild cramping pain Abdomen soft, mild distention Kock pouch catheter repositioned, flushed Urine 2300 Kock pouch ileostomy 170 (thick) Hgb 12.5 BUN down 7 Cr 0.7 albumin 3.2 Imp: Persistent partial small bowel obstruction History of proctocolectomy and Kock Pouch Plan: Mineral oil 30cc po x1 Morphine UNDERWRITING SUPPORT MANAGER demand dosing only Laparotomy, release bowel obstruction in AM Full discussion with patient re indications, alternatives, options and risks. Vishnu Cuevas MD Nov 27, 2019 12:13
[2019-11-27] MEDS ORDERED: PCA Education Pamphlet MISC ONE (12:15)
[2019-11-27] MEDS ORDERED: Naloxone 0.4mg/ml Inj IVP PRN (12:15)
[2019-11-27] MEDS ORDERED: Rate Change PCA 1 Each MISC PRN (12:15)
[2019-11-27] MEDS ORDERED: DiphenhydrAMINE 50mg/ml Inj IVP PRN (12:15)
[2019-11-27] MEDS ORDERED: HYDROmorphone 1mg/ml Carpuject SUBQ PRN (15:00)
[2019-11-27 16:00] VITALS: BP 131/84
--- NOTE | 2019-11-27 16:00 | NUR ---
NURSE NOTES: Patient ambulated around unit a couple of times today w/o incident; returned to bed safely. Will continue to monitor.
--- NOTE | 2019-11-27 18:00 | NUR ---
NURSE NOTES: Swabbed pt's stoma for VRE sample and per laborer pipelines, placed request for service so specimen can be processed. Will endorsed to overnight babysitter RN.
--- NOTE | 2019-11-27 19:33 | NUR ---
HAND-OFF: Report given to AURELIO Brandon.
[2019-11-27] MEDS: PCA shift volume MISC SCH (19:45)
[2019-11-27] MEDS: Dyna-Hex 2% Top Sol 2oz TOPIC SCH (20:52)
[2019-11-27] MEDS: ESTRADIOL VAGIN SCH (20:54)
--- NOTE | 2019-11-27 22:29 | NUR ---
NURSES NOTE: Met pt in bed, A/OX4, no outward s/s of distress noted. Breathing is even and unlabored on RA. STORE FACILITY TECHNICIAN pump set up and running morphine sulfate- pt states effective. Ileo, patent and draining according to gravity. Dressing lower abdomen is clean, dry and intact. CLARISSE PICC line noted. Infusing IVF without incident. Flush q3h in place. All due meds will be given. Bed at lowest level. Call light within reach. Pt will continue to be monitored.
[2019-11-27] MEDS: Clindamycin 600mg 50 ML IV SCH (23:52)
[2019-11-28] VITALS (17 sets, daily range): BP systolic 98–136; BP diastolic 59–87
[2019-11-28] MEDS: Ampicillin/Sulbactam Sod 3 GM in NS 110 ML IV SCH ×3 (01:14→18:46)
[2019-11-28] MEDS: Clindamycin 600mg 50 ML IV SCH ×3 (05:23→18:05)
[2019-11-28] MEDS: D5 1/2NS w/KCl 20mEq 1,000 ML IV SCH (05:23)
--- NOTE | 2019-11-28 06:58 | Pre-Procedure Note/Attestation ---
Pre-Procedure Note/Attestation Complete Prior to Procedure Planned Procedure: not applicable Procedure Narrative: laparotomy release small bowel obstruction Indications for Procedure Pre-Operative Diagnosis: small bowel obstruction Attestation I attest that I discussed the nature of the procedure; its benefits; risks and complications; and alternatives (and the risks and benefits of such alternatives ), prior to the procedure, with the patient (or the patient's legal cash application representative). I attest that, if there was a reasonable possibility of needing a blood transfusion, the patient (or the patient's legal cash application representative) was given the [facility] standardized written summary, pursuant to the Damion Shravan Blood Safety Act ([place] Health and Safety Code # 1645, as amended). I attest that I re-evaluated the patient just prior to the surgery and that there has been no change in the patient's H&P, except as documented below: none Vishnu Cuevas MD Nov 28, 2019 06:58
[2019-11-28] MEDS: PCA shift volume MISC SCH ×2 (07:00→19:00)
--- NOTE | 2019-11-28 07:48 | NUR ---
HAND OFF: Report given to ella Shcneider. Patient stable.
--- NOTE | 2019-11-28 07:53 | NUR ---
NURSE NOTES: Patient is ambulating in room AAOx4, able to verbalize needs. Patient denies pain or SOB at this time. Ileo draining to bag, will flush as ordered. PICC patent and running IVF and FURNACE MECHANIC HELPER as ordered. Patient instructed to use call light for assistance, verbalized understanding. Will continue to monitor.
[2019-11-28] MEDS ORDERED: Heparin 5000 units/ml inj SUBQ SCH (08:00)
[2019-11-28] MEDS ORDERED: D5 1/2NS w/KCl 20mEq 1,000 ML IV SCH (08:00)
--- NOTE | 2019-11-28 09:07 | NUR ---
NURSE NOTES: Patient taken to surgery.
--- NOTE | 2019-11-28 10:00 | NUR ---
NURSE NOTES: Patient returned to unit and will be sent down to surgery later in the morning.
[2019-11-28] MEDS ORDERED: Bacitracin 50000 Units Vial ONE ×3 (10:38→14:44)
[2019-11-28] MEDS ORDERED: NeoSporin Gu Irrig 1ml Amp IRRIG ONE ×3 (10:38→14:44)
[2019-11-28] MEDS ORDERED: fentaNYL 100 mcg/2 mL IV ONE (10:41)
--- NOTE | 2019-11-28 10:41 | NUR ---
CASE MANAGEMENT: REVIEW 11/28/19 SI:RECURRING SMALL BOWEL OBSTRUCTION . MALFUNCTION OF KOCK POUCH 98.4 69 22 135/85 98% ON RA IS:IN SURGERY NOW RELEASE OF BOWEL OBSTRUCTION IV D5@150ML/HR AMPICILLIN Q6HR CLINDAMYCIN Q6HR DILAUDID SQ Q3HR/PRN KATHIE-HEX 2% TP QD IV MORPHINE SULFATE QD \: 3E MED SURG UNIT DCP: HOME WHEN STABLE PLAN: CONTINUE TO HYDRATE MRSA CX-PENDING
[2019-11-28] MEDS ORDERED: NS Irrig 1000ml IRRIG ONE (10:47)
--- NOTE | 2019-11-28 11:00 | NUR ---
*-*INSURANCE*-* ALL CLINICALS AND REVIEWS FAXED TO: ELZBIETA Albert/[facility] REF#[id number] PH: [phone] FAX: [phone]
--- NOTE | 2019-11-28 11:38 | NUR ---
NURSE NOTES: Patient taken to surgery. is in room.
[2019-11-28] MEDS ORDERED: Sterile Water Irrig 1000ml IRRIG ONE (12:00)
[2019-11-28] MEDS ORDERED: LR 1000ml ONE (12:00)
[2019-11-28] MEDS ORDERED: Rocuronium Bromide 50mg/5ml Inj IV ONE (12:21)
[2019-11-28] MEDS ORDERED: Propofol 200mg/20ml IV ONE (12:22)
[2019-11-28] MEDS ORDERED: Morphine Sulfate 10mg/ml Inj ONE (13:14)
[2019-11-28] MEDS ORDERED: Sodium Chloride 10ml vial INJ ONE ×2 (13:15→14:25)
[2019-11-28] MEDS ORDERED: Glycopyrrolate 0.2mg/ml 1ml Vial ONE (13:15)
[2019-11-28] MEDS ORDERED: Ketorolac 30mg Inj ONE (13:16)
[2019-11-28] MEDS ORDERED: Acetaminophen (Non formulary) 100 ML IV ONE (13:30)
[2019-11-28] MEDS ORDERED: Metoclopramide 10mg/2ml Inj IVP PRN (13:30)
[2019-11-28] MEDS ORDERED: DiphenhydrAMINE 50mg/ml Inj IVP PRN ×2 (13:30→15:30)
[2019-11-28] MEDS ORDERED: LR 1000ml 1,000 ML IVLG SCH (13:30)
[2019-11-28] MEDS ORDERED: Ketorolac 30mg Inj IV PRN (13:30)
[2019-11-28] MEDS ORDERED: ePHEDrine 50mg/ml Inj ONE (14:25)
--- NOTE | 2019-11-28 15:25 | Brief Operative Note ---
Immediate Post Operative Note Operative Note Pre-op Diagnosis: small bowel obstruction Procedure: laparotomy release small bowel obstruction Post-op Diagnosis: same due to adhesions and internal hernia Post-op Diagnosis: same as pre-op Findings: consistent w/pre-op dx studies Surgeon: yady Additional Surgeons: castro Anesthesiologist: ector Anesthesia: general Specimen: yes - peritoneal nodule Complications: none Condition: stable Fluids: see anesthesia record Estimated Blood Loss: minimal Drains: other - 28 Brock to Kock pouch; 18fr gastrostomy Implant(s) used?: No Vishnu Cuevas MD Nov 28, 2019 15:25
--- NOTE | 2019-11-28 15:28 | Immediate Post-Op Evaluation ---
Immediate Post-Op Evalulation Immediate Post-Op Evalulation Procedure: Exploratory laparotomy, lysis of adhesions Date of Evaluation: Nov 28, 2019 Time of Evaluation: 15:27 IV Fluids: 800 Blood Products: none Estimated Blood Loss: 50 Urinary Output: 400 Blood Pressure Systolic: 136 Blood Pressure Diastolic: 72 Pulse Rate: 74 Respiratory Rate: 20 O2 Sat by Pulse Oximetry: 99 Temperature (Fahrenheit): 97.6 Pain Score (1-10): 3 Nausea: No Vomiting: No Complications none Patient Status: reacts, patent, extubated, none Hydration Status: adequate dUay Shepard MD Nov 28, 2019 15:28
[2019-11-28] MEDS ORDERED: PCA Education Pamphlet MISC ONE (15:30)
[2019-11-28] MEDS ORDERED: PCA Morphine 1mg/ml 30 ML IV PRN (15:30)
[2019-11-28] MEDS: Hydromorphone 0.5mg/0.5ml inj IVP PRN ×3 (15:30→16:06)
[2019-11-28] MEDS ORDERED: Naloxone 0.4mg/ml Inj IVP PRN (15:30)
[2019-11-28] MEDS ORDERED: Rate Change PCA 1 Each MISC PRN (15:30)
[2019-11-28] MEDS ORDERED: LORazepam 1mg tab SL PRN ×2 (15:30)
[2019-11-28] MEDS ORDERED: Acetaminophen 650mg/20.3ml GT PRN (15:30)
--- NOTE | 2019-11-28 16:15 | Operative Note - Dictated ---
DATE OF OPERATION: 11/28/2019 SURGEON: Vishnu Cuevas M.D. ADDITIONAL SURGEON: Francisco Martinez M.D. ANESTHESIOLOGIST: Uday Shepard M.D. TYPE OF ANESTHESIA: General endotracheal. PREOPERATIVE DIAGNOSES: 1. Recurring small bowel obstruction. 2. History of ulcerative colitis. 3. Status post multiple abdominal operations. 3.1. Proctocolectomy and Kock pouch in 1984. 3.2. Revision of Kock pouch valve in 1985. 3.3. Revision of Kock pouch stoma stricture in 2007. 3.4. Revision of Kock pouch stoma and access segment in depth 09/25/2016 3.5. Laparotomy with creation of a new valve and stoma with preservation of the Kock pouch and relocation of the stoma to the left lower quadrant 2016 3.6. Laparotomy with revision of Kock pouch valve and lysis of small bowel adhesions on 09/25/2018. 3.7. Laparotomy for early postoperative small bowel obstruction with segmental small bowel resection on 10/12/2018. POSTOPERATIVE DIAGNOSES: 1. Recurring small bowel obstruction. 2. History of ulcerative colitis. 3. Status post multiple abdominal operations. 3.1. Proctocolectomy and Kock pouch in 1984. 3.2. Revision of Kock pouch valve in 1985. 3.3. Revision of Kock pouch stoma stricture in 2007. 3.4. Revision of Kock pouch stoma and access segment in depth 09/25/2016 3.5. Laparotomy with creation of a new valve and stoma with preservation of the Kock pouch and relocation of the stoma to the left lower quadrant 2016 3.6. Laparotomy with revision of Kock pouch valve and lysis of small bowel adhesions on 09/25/2018. 3.7. Laparotomy for early postoperative small bowel obstruction with segmental small bowel resection on 10/12/2018. OPERATION PERFORMED: Laparotomy with release of recurring small bowel obstruction and lysis of multiple adhesions, repair of internal hernia, repair of enterotomy x2 and repair of access segment enterotomy x1. DESCRIPTION OF PROCEDURE: The patient was taken to the operating room and under general endotracheal anesthesia with sequential compression device stockings and Brock catheter in place and having received preoperative intravenous antibiotics and subcutaneous heparin, the patient was prepped and draped in usual fashion. Previous midline incision was reopened ultimately from epigastrium to pubis. There were diffuse rather severe adhesions throughout the abdominal cavity. A 28-Irish Brock was placed through the stoma in the left lower quadrant to help facilitate dissection of the pouch out of the pelvis. The ligament of Treitz was identified and the small bowel was completely mobilized to the pouch. Two enterotomies were unavoidably created. Both were closed transversely with full-thickness continuous 2-0 chromic and imbricating 3-0 silk. One internal hernia from a chronic opening in the mesentery was closed with 3-0 silk. A small enterotomy in the access segment under the abdominal wall was closed with 3-0 Vicryl. The pouch was finally elevated out of the pelvis protecting the bladder and ureters. A 28-Irish Brock catheter readily went into the afferent bowel and there was no sign of stricture there. The field was copiously irrigated with antibiotic solution and the bowel run backwards and forwards twice. There were no further enterotomies and the bowel loops were all replaced anatomically with the pouch lying in the pelvis on top of the uterus and adnexa. The stomach was still attached to the anterior abdominal wall in the left upper quadrant and through a stab incision, an 18-Irish Brock catheter was brought through the abdominal wall and placed into the stomach with the gastrotomy closed with 2-0 chromic and the stomach tacked to the abdominal wall with 3-0 silk sutures. The balloon was inflated and positioned in the fundus. The gastrostomy catheter and the ileostomy catheters were both sutured to the skin with interrupted 2-0 silk sutures. They were flushed and connected to gravity drainage bags. After ascertaining that hemostasis was secure, the midline incision was closed in one layer with #1 looped PDS continuous suture. Additional antibiotic irrigation used, which had been done throughout the procedure, and the skin closed with emil. Dry sterile dressings were applied. Final sponge and needle counts were correct. The patient tolerated the procedure well and left the operating room in stable condition. Vishnu Cuevas M.D. DR: BIBIANA JOB#: [id number] CC: MATT
[2019-11-28] MEDS ORDERED: [UNRECOGNIZED DRUG - OTHER] IV PRN (17:00)
--- NOTE | 2019-11-28 17:00 | NUR ---
NURSE NOTES: Patient arrived on unit. Stable. C/O 10/10 pain, patient is hyperventilating and crying. Patient encouraged to use DIRECTOR INSURANCE pump, verbalized understanding. Dressing is c/d/i. F/C patent, will monitor output. GT and ileo to drainage bag, will monitor output and flush as ordered. PICC patent and running IVF and DIRECTOR INSURANCE. Patient is in bed in locked and lowest position with call light within reach and trapeze overhead. is at bedside. Will continue to monitor.
--- NOTE | 2019-11-28 17:37 | NUR ---
NURSE NOTES: METALLURGICAL ENGINEERING TEACHER changed to dilaudid as ordered. Verified with 2 RN. Morphine METALLURGICAL ENGINEERING TEACHER syringe wasted with pharmacist.
[2019-11-28] MEDS: D5 1/4NS w/KCl 20mEq 1,000 ML IV SCH ×2 (18:00→19:00)
--- NOTE | 2019-11-28 18:54 | NUR ---
NURSE NOTES: True ileo: 10cc liquid brown output. true gt: 5cc clear liquid output. UO: 1200, f/c patent. Patient is asleep, no c/o nausea or vomiting, is using METAL LOADER as directed. Pain level is 6/10, patient is comfortable with METAL LOADER. Addendum: 11/28/19 at 1914 by ELISABETH SMALL RN Correction: UO: 2200cc
--- NOTE | 2019-11-28 19:38 | NUR ---
HAND-OFF: Report given to Manuela CAREY. Patient is stable.
[2019-11-28] MEDS: Dyna-Hex 2% Top Sol 2oz TOPIC SCH (21:00)
--- NOTE | 2019-11-28 23:40 | NUR ---
NURSES NOTE: P/O patient. VS stable. End title Co2 WNL. Dressing- abdomen, clean dry intact. Ileo patent draining to gravity, flush Q3H. NG tube intact, flush Q3H, draining to gravity. Brock catheter in place. AUTO FINANCE SALES REP pump, Dilaudid set up and infusing medication according to eMAR. Pt remains NPO. Patient responding appropriately no all questions. Bed at lowest level, call light, within reach.
[2019-11-29] VITALS: BP 100/62
[2019-11-29] MEDS: Clindamycin 600mg 50 ML IV SCH ×4 (00:21→17:19)
[2019-11-29] MEDS: Ampicillin/Sulbactam Sod 3 GM in NS 110 ML IV SCH ×4 (01:04→18:13)
[2019-11-29 04:00] VITALS: BP 94/61
[2019-11-29] MEDS: D5 1/4NS w/KCl 20mEq 1,000 ML IV SCH ×2 (05:29→14:33)
[2019-11-29 06:17] LABS: HEMATOCRIT 44.9 % (37.0-47.0); HEMOGLOBIN 15.1 G/DL (12.0-16.0); MEAN CORPUSCULAR VOLUME 92 FL (80-99); PLATELET COUNT 187 K/UL (150-450); RED BLOOD COUNT 4.86 M/UL (4.20-5.40); RED CELL DISTRIBUTION WIDTH 11.7 % (11.6-14.8); WHITE BLOOD COUNT 4.9 K/UL (4.8-10.8)
[2019-11-29 06:27] LABS: ANION GAP 11 mmol/L (5-15); BLOOD UREA NITROGEN 13 mg/dL (7-18); CALCIUM 8.2 MG/DL (8.5-10.1); CARBON DIOXIDE 27 MMOL/L (21-32); CHLORIDE 107 MMOL/L (98-107); CREATININE 1.1 MG/DL (0.55-1.30); POTASSIUM 4.7 MMOL/L (3.5-5.1); SODIUM 145 MMOL/L (136-145)
[2019-11-29] MEDS: PCA shift volume MISC SCH ×2 (07:00→19:00)
[2019-11-29] MEDS ORDERED: HYDROmorphone 1mg/ml Carpuject SUBQ PRN (07:30)
[2019-11-29] MEDS: Ketorolac 30mg Inj IV PRN ×3 (07:56→23:57)
[2019-11-29 08:00] VITALS: BP 96/56
--- NOTE | 2019-11-29 08:38 | NUR ---
NURSES NOTE: Pt in great pain this morning and complaining of bloating and abdominal discomfort. Ativan 1mg offered however pt refused. Dr. Cuevas called at apprx 0630 and made aware. New orders processed. Toradol 15mg IVP given- effective. Ativan orders D/C. And patient made aware that bloating and distention is typical for day 2 post op. Addendum: 11/29/19 at 0912 by Manuela Rey RN Was unable to process 1 time STAT order of Toradol 15 mg IVP due to drug interaction and pharmacy approval. Processed Q6H PRN for break through pain, same dose, and administered to patient. Effective.
--- NOTE | 2019-11-29 08:41 | NUR ---
HAND OFF: Report given to AURELIO Girard. RN Made aware of new orders and pt state in the morning. Pt comfortable upon departure.
--- NOTE | 2019-11-29 09:00 | NUR ---
NURSE NOTES: reported dr pt's b/p is low received order.
--- NOTE | 2019-11-29 09:05 | 48 Hour Post Anesthesia Eval ---
Post Anesthesia Evaluation Procedure: Exploratory laparotomy, lysis of adhesions Date of Evaluation: Nov 29, 2019 Time of Evaluation: 09:03 Blood Pressure Systolic: 98 0: 54 Pulse Rate: 68 Respiratory Rate: 20 Temperature (Fahrenheit): 97.8 O2 Sat by Pulse Oximetry: 98 Airway: patent Nausea: No Vomiting: No Pain Intensity: 3 Hydration Status: adequate Cardiopulmonary Status: stable Mental Status/LOC: patient returned to baseline Follow-up Care/Observations: n/a Post-Anesthesia Complications: none Follow-up care needed: N/A Uday Shepard MD Nov 29, 2019 09:05
[2019-11-29] MEDS ORDERED: NS Irrig 1000ml ONE (09:37)
[2019-11-29] MEDS ORDERED: Naloxone 0.4mg/ml Inj IVP PRN (09:47)
[2019-11-29] MEDS ORDERED: PCA HYDROmorphone 1mg/ml 30 ML IV PRN ×2 (09:50)
[2019-11-29] MEDS ORDERED: Rate Change PCA 1 Each MISC PRN (10:00)
[2019-11-29] MEDS ORDERED: Sodium Chloride 550 ML IV ONE ×2 (10:00→20:00)
--- NOTE | 2019-11-29 10:04 | General Progress Note ---
Progress Note Progress Note AVSS c/o pain despite dilaudid catalyst unit operator - added Toradol 15mg IV with good relief Lungs - decreased expansion Cor reg rhythm Abdomen distended, soft, incision clean, stoma pink overnight 12 hours: urine 325 Gastrostomy 100 Kock pouch ileo small amount yellowish WBc 4900 Hgb up 15.1 BMP okay Imp: Ileus with mild hemoconcentration Plan: npo, gastrostomy and kock pouch catheters to drainage, continue Brock fluid bolus 500cc NS in addition to IVs f/u labs - may need TPN Mobilize Vishnu Cuevas MD Nov 29, 2019 10:04
--- NOTE | 2019-11-29 11:31 | NUR ---
P.T Note: P.T evaluation completed and tx initiated. Pt received in supine position with present. Pt on ADULT CAREGIVER pump. Pt presented with generalized weakness reported 5/10 abdominal pain which increases to 10/10 with movement initiation and certain positioning resulting to limited participation in ADL/functional mobilities. Pt currently required MIN A X 1 and extended time for Bed mobilities , Transfers and Gait/ambulation activities using the FWW. Pt will benefit from skilled P.T service to increase strength and activity tolerance to increase mobility independence and safety for return to PLOF. Pt is cleared for OOB activities with nursing using the FWW. Thank you for this referral.
[2019-11-29 12:00] VITALS: BP 85/50
--- NOTE | 2019-11-29 14:30 | NUR ---
NURSE NOTES: reported Dr. Cuevas regarding urine output was only 125 cc from this morning at 7:00. he told watch for now. checked bladder scan 0 ml noted. also reported when pt walked with PT there was 5 blood droops. changed picc line dressing due to old blood stain. pt well tolerated
[2019-11-29] MEDS ORDERED: NS 500ML ONE (15:22)
[2019-11-29 16:00] VITALS: BP 80/53
--- NOTE | 2019-11-29 16:00 | NUR ---
NURSE NOTES: Reported dr for low b/p received order and abdominal pain with distention. watch for now
--- NOTE | 2019-11-29 16:39 | NUR ---
NURSE NOTES: Spoke to regarding blood pressure and new order received. Order read back and carried out.
--- NOTE | 2019-11-29 19:30 | NUR ---
HAND-OFF: Report given to Dameon, pt is stable condition. pain and abd distention got better.
--- NOTE | 2019-11-29 19:55 | NUR ---
NURSE NOTES: Received Report from RN GABRIELLE , pt is A/O x4, breaths even regular and unlabored on RA. Pt denies any pain, pt Dilaudid for pain continuous via EQUITY STRUCTURER, pt is on NPO diet . PT has an Ileostomy on L lower ABD, with yellowish out put and G tube on L upper ABD, with greenish out put. Both G tube and Ileo on continuous drain and Q3 flush. Pt has a CLARISSE picc line with i.v fluids running, patent and asymptomatic dressing clean intact , abdominal dressing clean and intact. Family by the bed side . Bed in low locked position and call light with in reach
[2019-11-29 20:00] VITALS: BP 90/54
--- NOTE | 2019-11-29 20:24 | NUR ---
NURSE NOTES: Received pt from AURELIO Pinon pt was resting no acute distress, GT, Ileo, F/C in place, call light w/in reach.
[2019-11-29] MEDS: Dyna-Hex 2% Top Sol 2oz TOPIC SCH (20:50)
[2019-11-30] VITALS: BP 109/70
[2019-11-30] MEDS: Clindamycin 600mg 50 ML IV SCH ×5 (00:07→23:48)
[2019-11-30] MEDS: Ampicillin/Sulbactam Sod 3 GM in NS 110 ML IV SCH ×5 (00:07→23:49)
[2019-11-30 04:00] VITALS: BP 102/60
[2019-11-30 05:41] LABS: HEMATOCRIT 32.8 % (37.0-47.0); HEMOGLOBIN 11.3 G/DL (12.0-16.0); MEAN CORPUSCULAR VOLUME 90 FL (80-99); PLATELET COUNT 128 K/UL (150-450); RED BLOOD COUNT 3.65 M/UL (4.20-5.40); RED CELL DISTRIBUTION WIDTH 11.4 % (11.6-14.8); WHITE BLOOD COUNT 9.4 K/UL (4.8-10.8)
[2019-11-30 05:53] LABS: ALANINE AMINOTRANSFERASE 18 U/L (12-78); ALBUMIN 2.2 G/DL (3.4-5.0); ALBUMIN/GLOBULIN RATIO 0.8 (1.0-2.7); ALKALINE PHOSPHATASE 40 U/L (46-116); ANION GAP 8 mmol/L (5-15); ASPARTATE AMINO TRANSFERASE 19 U/L (15-37); BILIRUBIN,TOTAL 0.5 MG/DL (0.2-1.0); BLOOD UREA NITROGEN 23 mg/dL (7-18); CALCIUM 8.3 MG/DL (8.5-10.1); CARBON DIOXIDE 26 MMOL/L (21-32); CHLORIDE 107 MMOL/L (98-107); PHOSPHORUS 3.9 MG/DL (2.5-4.9); SODIUM 141 MMOL/L (136-145)
[2019-11-30] MEDS: PCA shift volume MISC SCH ×2 (07:18→19:00)
--- NOTE | 2019-11-30 07:19 | NUR ---
HAND-OFF: Report given to AURELIO Edwards/massiel Seay.
--- NOTE | 2019-11-30 07:30 | NUR ---
NURSE NOTES: Received report from Dameon CAREY. Patient is awake and oriented, no acute distress noted, reporting mild pain/discomfort at surgical site, patient reports she is feeling better today than yesterday. Surgical site dressing clean with one small, dry stain. Ileo, g-tube and vitale to gravity drainage. CLARISSE PICC intact, patent, running IVF per order. SALES INCENTIVE ANALYST settings checked and verified against order. Patient updated on plan of care for the day. Side rails upx2, bed low and locked, call light within reach.
[2019-11-30 08:00] VITALS: BP 110/70
[2019-11-30] MEDS ORDERED: Tubing IV Secondary IV ONE (08:45)
[2019-11-30] MEDS ORDERED: NS Irrig 1000ml ONE (08:45)
[2019-11-30] MEDS ORDERED: NS 500ML ONE (08:45)
[2019-11-30] MEDS ORDERED: HydrOXYzine tab 25mg tab ORAL STA (08:48)
[2019-11-30] MEDS ORDERED: Naloxone 0.4mg/ml Inj IVP PRN (09:04)
[2019-11-30] MEDS ORDERED: Rate Change PCA 1 Each MISC PRN (09:15)
--- NOTE | 2019-11-30 09:15 | General Progress Note ---
Progress Note Progress Note AVSS BPs up to normal. Ambulates in hallway but c/o increased pain and pruritus Abdomen distended, mild tenderness, incision clean with some serous fluid from lower pole; Stoma pink Urine 380cc 12hrs overnight with increased IV fluids Gastrostomy 315 Kock pouch ileo scant yellowish fluid WBC 9400 Hgb 11.3 Platelets 128,000 BUN up 23 Cr 1.0 Mg 1.5 Albumin 2.2 - was low pre-op at 3.2 Imp: Ileus Pain Protein malnutrition on admission pre-op Plan: Start TPN, continue npo, infuse MG, adjust IVs increase WEBSPHERE COMMERCE CONSULTANT basal to 0.2mg / hour, increase Toradol dose x 24 hours, Atarax po prn pruritus in addition to benadryl IV, infuse Mg f/u labs Vishnu Cuevas MD Nov 30, 2019 09:14
[2019-11-30] MEDS ORDERED: PCA HYDROmorphone 1mg/ml 30 ML IV PRN (09:23)
--- NOTE | 2019-11-30 09:38 | NUR ---
NURSE NOTES: PER DIEM CLERK settings changed per MD order, verified with RENEA CAREY.
[2019-11-30] MEDS: Ketorolac 30mg Inj IV PRN (09:40)
[2019-11-30] MEDS: D5 1/4NS w/KCl 20mEq 1,000 ML IV SCH ×4 (09:44→21:08)
--- NOTE | 2019-11-30 10:31 | NUR ---
RD ASSESSMENT & RECOMMENDATIONS SEE CARE ACTIVITY FOR COMPLETE ASSESSMENT DAILY ESTIMATED NEEDS: Needs based on Surgery, 58kg 28-33 kcals/kg 8965-6688 total kcals 58-116 g protein/kg 54-108 g total protein 25-30 mL/kg 8416-8042 total fluid mLs NUTRITION DIAGNOSIS: Altered GI function r/t malfunctioning ileostomy as evidenced by s/p laparotomy with release of small bowel obstruction, multiple adhesions, and internal hernia with repair of enterotomy x2 and repair of access segment enterotomy, per MD, npo TPN ordered. PARENTERAL NUTRITION RECOMMENDATIONS: D/AA Rate: 65 IL Rate: 9 Total Rate: 74 Volume: 1776 % Dextrose: 17 % AA: 5.2 Energy (kcals/kg): 1658 Protein (g/kg protein): 81 Nonprotein KCALS: 1334 GIR (mg CHO/kg/min): 3.2 % Fat KCALS: 26 NPC: N Ratio: 103:1 TPN Comment: - Rec D17% + AA5.2% @65ml/hr with 20% IL @9ml/hr. all 3:1 - Start rate per MD - TPN at goal provides 29kcal/kg and 1.4g/lg pro per day - IL <30% - GIR <5 ------- ADDITIONAL RECOMMENDATIONS: * OBTAIN AN UPDATED STANDING WEIGHT ABLE * WEEKLY STANDING WEIGHTS * MONITOR BGS, LFTS, LYTES ON TPN
[2019-11-30 12:14] VITALS: BP 109/67
[2019-11-30] MEDS ORDERED: Ketorolac 30mg Inj IV PRN (13:30)
[2019-11-30 16:00] VITALS: BP 110/76
--- NOTE | 2019-11-30 19:00 | NUR ---
NURSE NOTES: Total ileo output for shift is 0, total gastrostomy output for shift is +150 ml, total urine output for shift is 500 ml. Patient's pain is well managed with DIRECTOR FACILITIES MAINTENANCE. Patient ambulated in the hallway x3.
--- NOTE | 2019-11-30 19:15 | NUR ---
NURSE NOTES: Received Report from RN Grace/Dawood , pt is A/O x4, breaths even regular and unlabored on RA. Pt denies any pain, pt continues Dilaudid for pain continuously via RETAIL ACCOUNT REPRESENTATIVE, pt is still on NPO diet . PT has an Ileostomy on L lower ABD, and G tube on L upper ABD, with greenish out put. Both G tube and Ileo on continuous drain and Q3 flush. Pt has a CLARISSE picc line with i.v fluids running, patent and asymptomatic dressing clean intact , abdominal dressing clean and intact. Family by the bed side . Bed in low locked position and call light with in reach
--- NOTE | 2019-11-30 19:39 | NUR ---
HAND-OFF: Report given to JENIFER CAREY.
[2019-11-30 20:00] VITALS: BP 116/76
[2019-11-30] MEDS ORDERED: Fat Emulsion Iv 20% 216 ML in Tpn 1,560 ML IV SCH (20:00)
[2019-11-30] MEDS ORDERED: Dextrose 10% 1,000 ML IV PRN (20:00)
[2019-11-30] MEDS ORDERED: Fat Emulsion Iv 20% 250 ML IV SCH (21:00)
[2019-11-30] MEDS: Dyna-Hex 2% Top Sol 2oz TOPIC SCH (21:07)
[2019-11-30] MEDS: Phytonadione 10 mg/mL 1ml amp SUBQ SCH (21:12)
[2019-11-30] MEDS: NovoLOG Insulin Flexpen SUBQ SCH (23:47)
[2019-12-01] VITALS: BP 117/73
[2019-12-01 04:00] VITALS: BP 134/77
[2019-12-01] MEDS: HydrOXYzine 50mg tab ORAL PRN (05:27)
[2019-12-01] MEDS: D5 1/4NS w/KCl 20mEq 1,000 ML IV SCH ×2 (05:36→09:44)
[2019-12-01] MEDS: Clindamycin 600mg 50 ML IV SCH (05:36)
[2019-12-01] MEDS: Ampicillin/Sulbactam Sod 3 GM in NS 110 ML IV SCH ×3 (05:36→17:58)
[2019-12-01] MEDS: NovoLOG Insulin Flexpen SUBQ SCH ×3 (06:00→18:00)
[2019-12-01] MEDS: PCA shift volume MISC SCH ×3 (07:00→19:15)
[2019-12-01 07:18] LABS: HEMATOCRIT 30.3 % (37.0-47.0); HEMOGLOBIN 10.8 G/DL (12.0-16.0); MEAN CORPUSCULAR VOLUME 90 FL (80-99); PLATELET COUNT 117 K/UL (150-450); RED BLOOD COUNT 3.37 M/UL (4.20-5.40); RED CELL DISTRIBUTION WIDTH 11.2 % (11.6-14.8); WHITE BLOOD COUNT 10.2 K/UL (4.8-10.8)
[2019-12-01 07:29] LABS: ALANINE AMINOTRANSFERASE 16 U/L (12-78); ALBUMIN/GLOBULIN RATIO 0.6 (1.0-2.7); ALKALINE PHOSPHATASE 61 U/L (46-116); ANION GAP 7 mmol/L (5-15); ASPARTATE AMINO TRANSFERASE 17 U/L (15-37); BILIRUBIN,TOTAL 0.5 MG/DL (0.2-1.0); BLOOD UREA NITROGEN 14 mg/dL (7-18); CALCIUM 8.4 MG/DL (8.5-10.1); CARBON DIOXIDE 26 MMOL/L (21-32); CHLORIDE 104 MMOL/L (98-107); CREATININE 0.7 MG/DL (0.55-1.30); POTASSIUM 4.4 MMOL/L (3.5-5.1); SODIUM 137 MMOL/L (136-145)
--- NOTE | 2019-12-01 07:30 | NUR ---
NURSE NOTES: Patient is in bed awake and able to verbalize needs. Stable. Denies severe pain or SOB. Patient instructed to use call light for assistance, verbalized understanding. PICC running TPN, IVF, and SOIL TECHNICIAN as ordered. GT and ileo draining to bag, will flush and monitor output. f/c draining yellow urine, will monitor output. Patient is in bed in locked and lowest position with call light within reach. All needs met at this time. Will continue to monitor.
[2019-12-01 07:36] LABS: INR 0.9 (0.9-1.1)
--- NOTE | 2019-12-01 07:41 | NUR ---
HAND-OFF: Report given to AURELIO lou.
[2019-12-01 07:55] LABS: % IRON SATURATION 6 % (15-50); IRON 8 ug/dL (50-175); TOTAL IRON BINDING CAPACITY 139 ug/dL (250-450)
[2019-12-01 08:00] VITALS: BP 126/76
[2019-12-01] MEDS: ESTRADIOL VAGIN SCH (08:45)
--- NOTE | 2019-12-01 09:29 | NUR ---
CASE MANAGEMENT: REVIEW 11/29/19 SI:S/P LAPAROTOMY RELEASE OF SMALL BOWEL OBSTRUCTION RECURRING SMALL BOWEL OBSTRUCTION . 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 MALFUNCTION OF KOCK POUCH 99.0 79 17 117/73 95% ON 2L NC IS:IV D5@150ML/HR TPN @24HR AMPICILLIN Q6HR CLINDAMYCIN Q6HR MECHANICAL REPAIR WORKER BID TORADOL Q6HR/PRN DILAUDID SQ Q3HR/PRN KATHIE-HEX 2% TP QD \: 3E MED SURG UNIT DCP: HOME WHEN STABLE PLAN: MOBILIZE PATIENT
[2019-12-01] MEDS ORDERED: Rate Change PCA 1 Each MISC PRN (09:36)
[2019-12-01] MEDS ORDERED: PCA HYDROmorphone 1mg/ml 30 ML IV PRN ×2 (09:36)
[2019-12-01] MEDS ORDERED: Naloxone 0.4mg/ml Inj IVP PRN (09:44)
--- NOTE | 2019-12-01 09:46 | General Progress Note ---
Progress Note Progress Note AVSS confused at times but awake and alert, c/o muscle spasms. 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 will d/ c basal infusion of dilaudid FLOOR COVERINGS SALESPERSON. Ambulating daily Abdomen moderate soft distention, incision clean, mild diffuse tenderness Urine 1500 Gastrostomy 280 Kock pouch ileo scant yellowish WBC 10.200 Hgb down 10.8 Platelets down 117,000 BUN down 14 Cr 0.7 Mg 1.9 Iron 8 folic acid 6.8 B12 good Imp: ileus Plan: d/c basal of FLOOR COVERINGS SALESPERSON, continue npo and TPN Venofer 200mg IV daily x 5 doses Folic acid daily f/u labs soma prn muscle spasms Vishnu Cuevas MD Dec 01, 2019 09:46
[2019-12-01 12:00] VITALS: BP 141/84
--- NOTE | 2019-12-01 12:33 | NUR ---
NURSE NOTES: Patient is confused. Patient is sitting up at the edge of the bed asking where her is. Patient called on cell phone, reassured patient that he will be back to see her. RN stayed with patient and reassured her that she is safe and should stay in bed. All safety measures provided. WIll continue to monitor.
--- NOTE | 2019-12-01 13:20 | NUR ---
NURSE NOTES: Patient's is at bedside.
[2019-12-01] MEDS: Ketorolac 30mg Inj IV PRN ×2 (15:02→21:05)
[2019-12-01] MEDS ORDERED: NS Irrig 1000ml ONE (15:58)
[2019-12-01 16:00] VITALS: BP 117/68
--- NOTE | 2019-12-01 18:38 | NUR ---
NURSE NOTES: true ileo: -5cc dark yellowish liquid output. true gt: 170cc clear greenish liquid output. UO: 2200cc yellow urine output. Patient c/o pain and abdominal discomfort throughout shift. Soma offered to patient during shift, patient refused and denies abdominal cramping. Will endorse to planisher to offer Soma to patient if needed. Patient ambulated short distances with RN and (from bed to outside of doorway). Patient continues to have moments of confusion, reassurance and reorientation provided.
--- NOTE | 2019-12-01 19:19 | NUR ---
HAND-OFF: Report given to Dameon CAREY. Patient is stable.
--- NOTE | 2019-12-01 19:50 | NUR ---
NURSE NOTES: Received Report from AURELIO Schneider , pt is A/O x4, breaths even regular and unlabored on RA. Pt c/o pain 12/18 pt continues Dilaudid for pain bolus via REGULATORY ASSOCIATE, pt is still on NPO diet . Ileostomy on L lower ABD, and G tube on L upper ABD, dressing clean intact. Both G tube and Ileo on continuous drain and Q3 flush. Pt has a CLARISSE picc line with i.v fluids running, patent and asymptomatic dressing clean intact. Family by the bed side . Bed in low locked position and call light with in reach
[2019-12-01 20:00] VITALS: BP 144/79
[2019-12-01] MEDS: Dyna-Hex 2% Top Sol 2oz TOPIC SCH (20:22)
[2019-12-01] MEDS: Fat Emulsion Iv 20% 216 ML in Tpn 1,560 ML IV SCH (20:22)
[2019-12-01] MEDS ORDERED: ESTRADIOL VAGIN SCH (21:00)
[2019-12-01] MEDS: Venofer 200mg in NS 110ml IV SCH (21:04)
[2019-12-02] VITALS: BP 144/83
[2019-12-02] MEDS: Ampicillin/Sulbactam Sod 3 GM in NS 110 ML IV SCH ×4 (00:04→18:04)
[2019-12-02 04:00] VITALS: BP 153/88
[2019-12-02] MEDS: Ketorolac 30mg Inj IV PRN ×3 (04:51→18:05)
[2019-12-02] MEDS: D5 1/4NS w/KCl 20mEq 1,000 ML IV SCH ×2 (04:51→05:59)
[2019-12-02] MEDS: NovoLOG Insulin Flexpen SUBQ SCH ×4 (05:59→18:00)
[2019-12-02 06:26] LABS: HEMATOCRIT 33.1 % (37.0-47.0); HEMOGLOBIN 11.8 G/DL (12.0-16.0); MEAN CORPUSCULAR VOLUME 90 FL (80-99); PLATELET COUNT 144 K/UL (150-450); RED BLOOD COUNT 3.69 M/UL (4.20-5.40); WHITE BLOOD COUNT 9.9 K/UL (4.8-10.8)
[2019-12-02 06:47] LABS: ALANINE AMINOTRANSFERASE 22 U/L (12-78); ALBUMIN 2.2 G/DL (3.4-5.0); ALBUMIN/GLOBULIN RATIO 0.6 (1.0-2.7); ALKALINE PHOSPHATASE 68 U/L (46-116); ANION GAP 10 mmol/L (5-15); ASPARTATE AMINO TRANSFERASE 14 U/L (15-37); BILIRUBIN,TOTAL 0.5 MG/DL (0.2-1.0); BLOOD UREA NITROGEN 10 mg/dL (7-18); CALCIUM 8.8 MG/DL (8.5-10.1); CARBON DIOXIDE 25 MMOL/L (21-32); CHLORIDE 106 MMOL/L (98-107); CREATININE 0.7 MG/DL (0.55-1.30); PHOSPHORUS 1.7 MG/DL (2.5-4.9); SODIUM 140 MMOL/L (136-145)
[2019-12-02] MEDS: PCA shift volume MISC SCH ×2 (07:22→19:00)
--- NOTE | 2019-12-02 07:28 | NUR ---
HAND-OFF: Report given to massiel Sims.
--- NOTE | 2019-12-02 07:30 | NUR ---
NURSE NOTES: Patient is in bed asleep. Stable. Breathing is even and unlabored. No visible signs of distress noted. PICC patent and running IVF and TPN with ASSORTER as ordered. Gt and ileo draining to bag as ordered, will flush q3h and monitor output. F/c patent and draining yellow urine. Patient is in bed in locked and lowest position with call light within reach. All safety measures provided. Will continue to monitor.
[2019-12-02 08:00] VITALS: BP 127/75
--- NOTE | 2019-12-02 08:50 | NUR ---
NURSE NOTES: Patient is awake, is at bedside. Patient appears more relaxed this morning but still has moments of confusion. All safety measures provided. Will continue to monitor.
--- NOTE | 2019-12-02 09:23 | NUR ---
CASE MANAGEMENT: REVIEW 12/02/19 SI:RECURRING SMALL BOWEL OBSTRUCTION . MALFUNCTION OF KOCK POUCH 98.1 72 18 127/75 98% ON 2L NC H/H 11.8/33.1 BG 112 PHOS 1.7 MG 1.6 IS:IV D5@50ML/HR TPN @24HR AMPICILLIN Q6HR CLINDAMYCIN Q6HR IV VENOFER X5 BAGS VIT K SQ QWK AUTOMATIC PROFILE SHAPER OPERATOR BID TORADOL Q6HR/PRN DILAUDID SQ Q3HR/PRN KATHIE-HEX 2% TP QD \: 3E MED SURG UNIT DCP: HOME WHEN STABLE PLAN: MOBILIZE PATIENT
[2019-12-02 12:00] VITALS: BP 140/81
[2019-12-02] MEDS ORDERED: Rate Change PCA 1 Each MISC PRN (13:30)
--- NOTE | 2019-12-02 13:30 | General Progress Note ---
Progress Note Progress Note AVSS Ambulates with assistance. still c/o distention and pain with dilaudid demi chef demand dosing + toradol Abdomen softer, less tender, mild distention, incision clean Urine 4620 Gastrostomy 440 Kock pouch ileo nil Hgb up 11.8 Platelets up 144,000 BUN 10 Cr 0.7 Phos 1.7 Mg 1.6 albumin 2.2 Imp: Ileus Plan; continue npo, TPN, vitale infuse Mg and Phos f/u labs Vishnu Cuevas MD Dec 02, 2019 13:30
[2019-12-02] MEDS: Potassium Phosphate 15mm/250ml 250 ML IVPB SCH ×2 (14:56→21:03)
[2019-12-02] MEDS ORDERED: Tubing IV Secondary IV ONE (15:45)
[2019-12-02] MEDS ORDERED: NS Irrig 1000ml ONE (15:45)
[2019-12-02 16:00] VITALS: BP 139/82
[2019-12-02] MEDS: HYDROmorphone 1mg/ml Carpuject SUBQ PRN (16:56)
[2019-12-02] MEDS ORDERED: Potassium Phosphate 15mm/250ml 250 ML IVPB SCH (18:30)
--- NOTE | 2019-12-02 18:36 | NUR ---
NURSE NOTES: patient ambulated around hallway with , tolerated well. UO: 2725cc yellow urine true gt: 145cc green liquid output. true ileo: -30cc output.
--- NOTE | 2019-12-02 19:30 | NUR ---
NURSE NOTES: Receive a report from AURELIO Schneider. Round is done. Pt is awake and alert. No acute distress noted. Pt states that her pain level is 6.5/10. On ASSESSMENT NURSE bolus for pain control. Re-educate when to press button. Pt verbalizes understanding. Ileostomy and G-tube are natural gravity with flushing q3hr. surgery site dressing kept dry and clean. No N/V noted. Yellowish urine patent via vitale catheter. TPN and fluid are running via LUQ PICC. Site is clear. Call light within reach. Will continue to monitor.
--- NOTE | 2019-12-02 19:45 | NUR ---
HAND-OFF: Report given to Manishao RN. Patient is stable.
[2019-12-02 20:00] VITALS: BP 144/84
[2019-12-02] MEDS: Dyna-Hex 2% Top Sol 2oz TOPIC SCH (21:04)
[2019-12-02] MEDS: Fat Emulsion Iv 20% 216 ML in Tpn 1,560 ML IV SCH (21:05)
[2019-12-02] MEDS: Venofer 200mg in NS 110ml IV SCH (21:06)
[2019-12-03] VITALS: BP 144/85
[2019-12-03] MEDS: Ketorolac 30mg Inj IV PRN ×4 (00:06→23:27)
[2019-12-03] MEDS: Ampicillin/Sulbactam Sod 3 GM in NS 110 ML IV SCH ×4 (00:07→17:56)
[2019-12-03] MEDS: HYDROmorphone 1mg/ml Carpuject SUBQ PRN ×6 (02:03→21:29)
--- NOTE | 2019-12-03 02:05 | NUR ---
NURSE NOTES: Pt says that she feels cramp and pain on lower abdomen. Offer for getting Soma but request to get Dilaudid 1mg SUQ. Given medication and will continue to monitor.
--- NOTE | 2019-12-03 03:00 | NUR ---
NURSE NOTES: pain level went down to 5/10 but still feeling not comfortable. encourage to relax and deep breathing. Answer done for questions r/t WEB MACHINE TENDER pump. Will continue to monitor.
[2019-12-03] MEDS: D5 1/4NS w/KCl 20mEq 1,000 ML IV SCH (03:05)
[2019-12-03 04:00] VITALS: BP_SYST 140; BP_SYST 149; BP_DIAS 78; BP_DIAS 87
[2019-12-03 05:55] LABS: ALANINE AMINOTRANSFERASE 20 U/L (12-78); ALBUMIN 2.1 G/DL (3.4-5.0); ALBUMIN/GLOBULIN RATIO 0.5 (1.0-2.7); ALKALINE PHOSPHATASE 61 U/L (46-116); ANION GAP 7 mmol/L (5-15); ASPARTATE AMINO TRANSFERASE 15 U/L (15-37); BILIRUBIN,TOTAL 0.3 MG/DL (0.2-1.0); BLOOD UREA NITROGEN 9 mg/dL (7-18); CARBON DIOXIDE 26 MMOL/L (21-32); CHLORIDE 107 MMOL/L (98-107); CREATININE 0.6 MG/DL (0.55-1.30); PHOSPHORUS 3.9 MG/DL (2.5-4.9); POTASSIUM 5.6 MMOL/L (3.5-5.1); SODIUM 140 MMOL/L (136-145)
[2019-12-03] MEDS: NovoLOG Insulin Flexpen SUBQ SCH ×4 (06:00→18:00)
--- NOTE | 2019-12-03 06:00 | NUR ---
NURSE NOTES: Prn pain medication given as planned. No respiratory distress noted. Will continue to monitor. 12hr output Urine: 2350mk Ileostomy: -5ml G-tube: 345ml
[2019-12-03 06:21] LABS: BASOPHILS % (AUTO) 1.4 % (0.0-2.0); EOSINOPHILS % (AUTO) 6.3 % (0.0-3.0); HEMATOCRIT 34.3 % (37.0-47.0); HEMOGLOBIN 11.9 G/DL (12.0-16.0); LYMPHOCYTES % (AUTO) 13.1 % (20.0-45.0); MEAN CORPUSCULAR VOLUME 89 FL (80-99); MONOCYTES % (AUTO) 13.7 % (1.0-10.0); NEUTROPHILS % (AUTO) 65.5 % (45.0-75.0); PLATELET COUNT 182 K/UL (150-450); RED BLOOD COUNT 3.84 M/UL (4.20-5.40); RED CELL DISTRIBUTION WIDTH 11.3 % (11.6-14.8); WHITE BLOOD COUNT 6.4 K/UL (4.8-10.8)
[2019-12-03] MEDS: PCA shift volume MISC SCH ×2 (07:00→19:00)
--- NOTE | 2019-12-03 07:45 | NUR ---
HAND-OFF: Report given to Grace/Estee Seay. Round is done.
[2019-12-03 08:00] VITALS: BP 156/87
--- NOTE | 2019-12-03 08:00 | NUR ---
NURSE NOTES: Received report from GHo RN. Patient is awake and oriented, no acute distress noted, reporting pain, will medicate per order. Surgical site dressing clean and dry, CLARISSE PICC intact patent, running IVF and TPN. Ileo, vitale and g-tube to gravity drainage. Patient updated on plan of care for the day. Side rails upx2, bed low and locked, call light within reach.
[2019-12-03] MEDS: HydrOXYzine 50mg tab ORAL PRN (09:24)
[2019-12-03] MEDS ORDERED: Rate Change PCA 1 Each MISC PRN (10:15)
[2019-12-03] MEDS ORDERED: FLUOCINONIDE 0.05% TOPIC PRN (10:30)
[2019-12-03] MEDS ORDERED: PCA HYDROmorphone 1mg/ml 30 ML IV PRN (10:30)
--- NOTE | 2019-12-03 10:30 | General Progress Note ---
Progress Note Progress Note AVSS Still with distended abdomen and intermittent cramping and incisional pains Abdomen mild distention, mild tenderness, no guarding Urine 5075 Gastrostomy 485 Kock pouch ileo only small amount enteric fluid K up 5.6 Platelets up 182,000 Albumin 2.1 Imp: Prolonged ileus s/p release recurring SBO with malnutrition Plan: continue npo, TPN, gastrostomy and Kock pouch catheters to drainage KUB XRay f/u labs adjust IV fluids continue Brock - having diuresis Vishnu Cuevas MD Dec 03, 2019 10:30
--- NOTE | 2019-12-03 10:57 | NUR ---
RADIOLOGY: KUB COMPLETED 1050 HRS. NF
--- NOTE | 2019-12-03 11:33 | Diagnostic Imaging Report ---
Indication: Abdominal distention Comparison: 11/26/2019 Single view of the abdomen obtained Findings: There is evidence of interval abdominal surgery with the long vertical scar skin emil noted. Bowel gas pattern is nonobstructive. Surgical clips noted in the pelvis compatible with the continent ileostomy. There is a catheter projected over the pelvis. There is a second catheter projected over the left flank. IMPRESSION: Nonobstructive bowel gas pattern. Recent abdominal surgery.
[2019-12-03 12:00] VITALS: BP 158/88
--- NOTE | 2019-12-03 12:02 | NUR ---
RD ASSESSMENT & RECOMMENDATIONS SEE CARE ACTIVITY FOR COMPLETE ASSESSMENT DAILY ESTIMATED NEEDS: Needs based on Surgery, 58kg 28-33 kcals/kg 6631-5990 total kcals 58-116 g protein/kg 54-108 g total protein 25-30 mL/kg 1792-4034 total fluid mLs NUTRITION DIAGNOSIS: Altered GI function r/t malfunctioning ileostomy as evidenced by s/p laparotomy with release of small bowel obstruction, multiple adhesions, and internal hernia with repair of enterotomy x2 and repair of access segment enterotomy, per MD, npo w/ ileus on TPN. PARENTERAL NUTRITION RECOMMENDATIONS: D/AA Rate: 65 IL Rate: 9 Total Rate: 74 Volume: 1776 % Dextrose: 17 % AA: 5.2 Energy (kcals/kg): 1658 Protein (g/kg protein): 81 Nonprotein KCALS: 1334 GIR (mg CHO/kg/min): 3.2 % Fat KCALS: 26 NPC: N Ratio: 103:1 TPN Comment: - Rec D17% + AA5.2% @65ml/hr with 20% IL @9ml/hr. all 3:1 - Maintain at goal. - TPN at goal provides 29kcal/kg and 1.4g/lg pro per day - IL <30% - GIR <5 ADDITIONAL RECOMMENDATIONS: * OBTAIN AN UPDATED STANDING WEIGHT ABLE * WEEKLY STANDING WEIGHTS * MONITOR BGS, LFTS, LYTES ON TPN . . . .
--- NOTE | 2019-12-03 14:53 | NUR ---
CASE MANAGEMENT: REVIEW 12/03/19 SI:RECURRING SMALL BOWEL OBSTRUCTION . MALFUNCTION OF KOCK POUCH 98.3 78 16 158/88 97% ON RA H/H 11.9/34.3 K+5.6 BG 131 IS:IV D5@30ML/HR TPN Q24HR IV AMPICILLIN Q6HR IV VENOFER X5 BAGS HYDROXYZINE Q6HR.PRN VIT K SQ QWK TORADOL Q6HR/PRN DILAUDID SQ Q3HR/PRN KATHIE-HEX 2% TP QD \: 3E MED SURG UNIT DCP: HOME WHEN STABLE PLAN: MOBILIZE PATIENT ADJUST IVF CONT NPO CONT TPN GASTROTOMY AND KOCK POUCH CATHETER TO DRAINAGE
--- NOTE | 2019-12-03 15:29 | NUR ---
*-*INSURANCE*-* ALL CLINICALS AND REVIEWS FAXED TO: ELZBIETA Albert/[facility] REF#[id number] PH: [phone] FAX: [phone]
[2019-12-03 16:00] VITALS: BP 133/82
--- NOTE | 2019-12-03 18:00 | NUR ---
NURSE NOTES: Total ileo output: -30mL Total g-tube output: 100mL Total urine output: 2200mL Patient ambulated in hallway x2, pain managed as of this time.
--- NOTE | 2019-12-03 19:30 | NUR ---
NURSE NOTES: Receive a report from Mita/ Estee Edwards. Round is done.
--- NOTE | 2019-12-03 19:35 | NUR ---
NURSE NOTES: Pt is awake and alert. Still noted pain, 5/10. Remind of using proper way to use FRENCH LECTURER pump and prn pain medication schedule. Pt says that cramp and pinching pain alternating on lower abdomen. Noted BS increased. encourage for ambulation. No respiratory distress noted. Ileostomy and G-tube are drained with natural gravity with flushing. On NPO. TPN and fluid are running via PICC on CLARISSE. Call light within reach. Will continue to monitor.
--- NOTE | 2019-12-03 19:41 | NUR ---
HAND-OFF: Report given to Meredith CAREY.
[2019-12-03 20:00] VITALS: BP 154/88
[2019-12-03] MEDS: Venofer 200mg in NS 110ml IV SCH (21:27)
[2019-12-03] MEDS: Fat Emulsion Iv 20% 216 ML in Tpn 1,560 ML IV SCH (21:28)
--- NOTE | 2019-12-03 21:30 | NUR ---
NURSE NOTES: Pt had melt-down r/t pain and discomfort and started crying. Done emotional support and calm her down. Given prn pain medication and continue to follow up.
[2019-12-03] MEDS: Dyna-Hex 2% Top Sol 2oz TOPIC SCH (21:32)
[2019-12-04] VITALS: BP 143/88
[2019-12-04] MEDS: Ampicillin/Sulbactam Sod 3 GM in NS 110 ML IV SCH ×4 (00:17→17:55)
[2019-12-04] MEDS: HYDROmorphone 1mg/ml Carpuject SUBQ PRN ×4 (02:16→20:19)
[2019-12-04 04:00] VITALS: BP 149/92
[2019-12-04] MEDS: NovoLOG Insulin Flexpen SUBQ SCH ×4 (05:56→17:51)
--- NOTE | 2019-12-04 06:00 | NUR ---
NURSE NOTES: After one more pain medication @ 0220ish, pt says she is feeling good this morning. Does not want to extra pain medication at this time. Pt and are waiting to hear from Dr. Cuevas about X-ray result that she took yesterday. Will continue to monitor. 12hr output Urine: 1775ml Ileostomy: -5ml, dark thick green G-tube: 45ml, light green
[2019-12-04 06:27] LABS: BASOPHILS % (AUTO) 1.7 % (0.0-2.0); EOSINOPHILS % (AUTO) 6.4 % (0.0-3.0); HEMATOCRIT 35.9 % (37.0-47.0); HEMOGLOBIN 12.7 G/DL (12.0-16.0); MEAN CORPUSCULAR VOLUME 89 FL (80-99); MONOCYTES % (AUTO) 15.4 % (1.0-10.0); NEUTROPHILS % (AUTO) 62.5 % (45.0-75.0); PLATELET COUNT 230 K/UL (150-450); RED BLOOD COUNT 4.04 M/UL (4.20-5.40); WHITE BLOOD COUNT 6.8 K/UL (4.8-10.8)
[2019-12-04 06:43] LABS: ALANINE AMINOTRANSFERASE 16 U/L (12-78); ALBUMIN 2.4 G/DL (3.4-5.0); ALBUMIN/GLOBULIN RATIO 0.6 (1.0-2.7); ALKALINE PHOSPHATASE 79 U/L (46-116); ANION GAP 6 mmol/L (5-15); ASPARTATE AMINO TRANSFERASE 14 U/L (15-37); BILIRUBIN,TOTAL 0.5 MG/DL (0.2-1.0); BLOOD UREA NITROGEN 14 mg/dL (7-18); CALCIUM 9.4 MG/DL (8.5-10.1); CARBON DIOXIDE 30 MMOL/L (21-32); CHLORIDE 101 MMOL/L (98-107); CREATININE 0.7 MG/DL (0.55-1.30); PHOSPHORUS 4.5 MG/DL (2.5-4.9); POTASSIUM 4.5 MMOL/L (3.5-5.1); SODIUM 137 MMOL/L (136-145)
--- NOTE | 2019-12-04 06:45 | NUR ---
NURSE NOTES: Pt ambulates with with steady gait.
[2019-12-04] MEDS: PCA shift volume MISC SCH ×2 (07:00→19:27)
--- NOTE | 2019-12-04 07:30 | NUR ---
HAND-OFF: Report given to Grace/Estee Seay. Round is done.
[2019-12-04 08:00] VITALS: BP 145/90
--- NOTE | 2019-12-04 08:31 | NUR ---
NURSE NOTES: Handoff received from O RN. Patient is alert and oriented, resting comfortably in bed, no signs of distress noted. Patient reports pain level of 4/10 and complains of distention, also says pain has improved greatly since yesterday. Surgical dressing is dry and intact, G-tube and ileo tube draining to gravity. CLARISSE PICC is patent and asymptomatic, running TPN and IVF per order. Bed is low and locked, side rails up x2, call light and ECOLOGY TEACHER button are within reach. ECOLOGY TEACHER settings reviewed against order.
[2019-12-04] MEDS: Ketorolac 30mg Inj IV PRN ×2 (09:33→18:06)
--- NOTE | 2019-12-04 09:38 | NUR ---
CASE MANAGEMENT: REVIEW 12/04/19 SI:RECURRING SMALL BOWEL OBSTRUCTION . MALFUNCTION OF KOCK POUCH 98.2 70 16 145/90 97% ON RA H/H 11.9/34.3 K+5.6 BG 131 IS:IV D5@30ML/HR TPN Q24HR IV AMPICILLIN Q6HR POURER METAL DILAUDID BID IV VENOFER X5 BAGS HYDROXYZINE Q6HR.PRN VIT K SQ QWK TORADOL Q6HR/PRN KATHIE-HEX 2% TP QD \: 3E MED SURG UNIT DCP: HOME WHEN STABLE PLAN: MOBILIZE PATIENT ADJUST IVF CONT NPO CONT TPN GASTROTOMY AND KOCK POUCH CATHETER TO DRAINAGE KUB X-RAY- NON-OBSTRUCTIVE
--- NOTE | 2019-12-04 10:46 | NUR ---
*-*INSURANCE*-* ALL CLINICALS AND REVIEWS FAXED TO: ELZBIETA Albert/[facility] REF#[id number] PH: [phone] FAX: [phone]
--- NOTE | 2019-12-04 11:40 | NUR ---
NURSE NOTES: Called Filippo in radiology regarding stat order for pouchogram per MD.
--- NOTE | 2019-12-04 11:48 | General Progress Note ---
Progress Note Progress Note AVSS Continued abdominal distention and pain with cough left side of abdomen, incision clean, mild left side tenderness Urine 3475 Gastrostomy 445 Kock pouch ileo nil - greenish in tubing but no output Labs all okay no leukocytosis albumin 2.4 Imp: persistent ileus vs partial SBO early post-op Plan: Kock Pouch pouchogram XRay with retrograde small bowel series continue npo and TPN f/u labs Vishnu Cuevas MD Dec 04, 2019 11:48
[2019-12-04 12:00] VITALS: BP 142/88
[2019-12-04] MEDS ORDERED: PCA HYDROmorphone 1mg/ml 30 ML IV PRN (12:00)
[2019-12-04] MEDS ORDERED: Rate Change PCA 1 Each MISC PRN (12:00)
--- NOTE | 2019-12-04 15:02 | NUR ---
RADIOLOGY DEPT., [facility] POUCHOGRAM COMPLETED.-P.DYE
--- NOTE | 2019-12-04 15:12 | Diagnostic Imaging Report ---
INDICATION: Abdominal pain. Zamorano Pouch continent ileostomy TECHNIQUE: Through the indwelling catheter, water-soluble contrast was administered via gravity and fluoroscopically imaged in multiple projections. COMPARISON: None FINDINGS: Total fluoroscopic time 45 seconds. Total number of fluoroscopic images obtained: 14 images including video fluoroscopic sequences. Multiple fluoroscopic images demonstrate the continent ileostomy catheter well situated within the pouch. The pouch is unremarkable. There is no evidence of extravasation of contrast material. The catheter enters the pouch in the anterolateral lateral left side of the pelvis. The pouch fills briskly. The catheter tip is in the right posterolateral aspect of the pouch in the right hemipelvis. Unfortunately, soon after instilling contrast within the pouch, the patient experienced severe abdominal pain and could not continue with further instilling of contrast material. At the point where contrast instilling was stopped, no reflux was seen entering distal small bowel proximal to the pouch. Drainage of the contrast material, again via gravity showed brisk emptying of contrast material from the pouch and into the drainage bag. Postdrainage images are unremarkable. IMPRESSION: Normal-appearing pouch. Adequate position of the catheter. Unfortunately status of the preanastomosis distal small bowel is unknown as contrast could not be refluxed retrograde beyond the pouch. Findings were discussed with Dr. Vishnu Cuevas.
[2019-12-04 16:00] VITALS: BP 148/90
--- NOTE | 2019-12-04 19:10 | NUR ---
NURSE NOTES: total urine output: 1250ml total ileo output: -5ml total g tube output: +245ml Patient ambulated in hallway x2, pain is managed with RN ORTHOPAEDIC and ordered PRNs.
--- NOTE | 2019-12-04 19:20 | NUR ---
NURSE NOTES: Received report from AURELIO Seay. Pt is awake, lying semi-duarte's; comfortably resting. No signs of acute distress noted. Pt denies any pain at this time. AOx4; able to make needs known. Checked IV sites, lines, and rates; patent and running. No erythema, bleeding or infiltration noted. Bed at lowest position. Brakes on. Siderails up x2. Call light within reach. Will continue to monitor.
--- NOTE | 2019-12-04 19:47 | NUR ---
HAND-OFF: Report given to Abiola CAREY.
[2019-12-04 20:00] VITALS: BP 143/88
[2019-12-04] MEDS: Dyna-Hex 2% Top Sol 2oz TOPIC SCH (20:14)
[2019-12-04] MEDS: Fat Emulsion Iv 20% 216 ML in Tpn 1,560 ML IV SCH (20:14)
[2019-12-04] MEDS ORDERED: Tubing IV Secondary IV ONE (20:38)
[2019-12-04] MEDS ORDERED: NS 275ml ONE (20:38)
[2019-12-04] MEDS ORDERED: NS Irrig 1000ml ONE (20:38)
[2019-12-04] MEDS: DiphenhydrAMINE 50mg/ml Inj IVP PRN (21:23)
[2019-12-04] MEDS: Venofer 200mg in NS 110ml IV SCH (21:23)
[2019-12-04] MEDS: ESTRADIOL VAGIN SCH (21:40)
[2019-12-05] VITALS: BP 140/81
[2019-12-05 04:00] VITALS: BP 147/85
[2019-12-05] MEDS: NovoLOG Insulin Flexpen SUBQ SCH ×4 (06:00→18:00)
[2019-12-05] MEDS: Ampicillin/Sulbactam Sod 3 GM in NS 110 ML IV SCH ×4 (06:18→13:31)
[2019-12-05 06:24] LABS: BASOPHILS % (AUTO) 1.7 % (0.0-2.0); EOSINOPHILS % (AUTO) 5.4 % (0.0-3.0); HEMATOCRIT 34.3 % (37.0-47.0); HEMOGLOBIN 12.2 G/DL (12.0-16.0); LYMPHOCYTES % (AUTO) 10.8 % (20.0-45.0); MEAN CORPUSCULAR VOLUME 88 FL (80-99); MONOCYTES % (AUTO) 11.7 % (1.0-10.0); NEUTROPHILS % (AUTO) 70.4 % (45.0-75.0); PLATELET COUNT 263 K/UL (150-450); RED BLOOD COUNT 3.88 M/UL (4.20-5.40); RED CELL DISTRIBUTION WIDTH 11.2 % (11.6-14.8); WHITE BLOOD COUNT 8.6 K/UL (4.8-10.8)
[2019-12-05 06:44] LABS: ALANINE AMINOTRANSFERASE 21 U/L (12-78); ALBUMIN 2.3 G/DL (3.4-5.0); ALBUMIN/GLOBULIN RATIO 0.6 (1.0-2.7); ALKALINE PHOSPHATASE 96 U/L (46-116); ANION GAP 7 mmol/L (5-15); ASPARTATE AMINO TRANSFERASE 21 U/L (15-37); BILIRUBIN,TOTAL 0.7 MG/DL (0.2-1.0); BLOOD UREA NITROGEN 18 mg/dL (7-18); CALCIUM 8.8 MG/DL (8.5-10.1); CARBON DIOXIDE 29 MMOL/L (21-32); CHLORIDE 101 MMOL/L (98-107); CREATININE 0.7 MG/DL (0.55-1.30); POTASSIUM 4.1 MMOL/L (3.5-5.1); SODIUM 136 MMOL/L (136-145)
[2019-12-05] MEDS: PCA shift volume MISC SCH ×2 (07:00→19:09)
--- NOTE | 2019-12-05 07:46 | NUR ---
HAND-OFF: Report given to AURELIO Schneider. Pt is sleeping and in stable condition. Plan of care endorsed.
--- NOTE | 2019-12-05 07:46 | NUR ---
NURSE NOTES: Patient is in bed awake and able to verbalize needs. Stable. Patient appears calm and comfortable. No visible signs of distress noted. RN discussed plan of care with patient, patient initially had a hard time comprehending. Patient asked for coffee, NPO status discussed with patient. Ileo and GT draining to bag as ordered, will flush q3hr and monitor output. PICC running TPN, IVF, and CLINICAL NURSE LEADER as ordered. Patient instructed to use call light for assistance, verbalized understanding. Patient is in bed in locked and lowest position with call light within reach. All needs met at this time. Will continue to monitor.
[2019-12-05 08:00] VITALS: BP 136/76
[2019-12-05] MEDS ORDERED: PCA HYDROmorphone 1mg/ml 30 ML IV PRN (08:10)
[2019-12-05] MEDS ORDERED: Rate Change PCA 1 Each MISC PRN (08:15)
[2019-12-05] MEDS ORDERED: Gastrograffin 30ml ORAL PRN (08:15)
--- NOTE | 2019-12-05 08:23 | General Progress Note ---
Progress Note Progress Note AVSS Feels somewhat better. Abdomen still distended, less tenderness left side, incision clean Kock pouch pouchogram: pouch is normal, catheter in good position, no reflux into afferent bowel Urine 2250 Gastrostomy 595 Kock pouch ileo scant enteric fluid labs all okay with albumin low 2.3 Imp: Prolonged ileus vs. partial SBO early post-op Plan: gastrograffin UGI/Small bowel series (with gastrostomy plugged) ?d/c urinary Brock after XRay completed Vishnu Cuevas MD Dec 05, 2019 08:23
[2019-12-05] MEDS: Ketorolac 30mg Inj IV PRN ×2 (08:54→16:58)
--- NOTE | 2019-12-05 09:30 | NUR ---
CASE MANAGEMENT: REVIEW 12/05/19 SI:RECURRING SMALL BOWEL OBSTRUCTION . MALFUNCTION OF KOCK POUCH 97.7 75 18 147/85 97% ON RA BG 134 IS:IV D5@30ML/HR TPN Q24HR IV AMPICILLIN Q6HR CORPORATE HUMAN RESOURCES MANAGER DILAUDID BID IV VENOFER X5 BAGS HYDROXYZINE Q6HR.PRN VIT K SQ QWK TORADOL Q6HR/PRN KATHIE-HEX 2% TP QD \: 3E MED SURG UNIT DCP: HOME WHEN STABLE PLAN: UGI SERIES/SMALL BOWEL SERIES (WITH GASTROSTOMY PLUGGED)
--- NOTE | 2019-12-05 10:52 | NUR ---
NURSE NOTES: Patient taken to radiology via wheelchair.
[2019-12-05] MEDS: HYDROmorphone 1mg/ml Carpuject SUBQ PRN ×2 (13:22→18:15)
--- NOTE | 2019-12-05 13:32 | NUR ---
NURSE NOTES: Patient returned on unit. Stable. C/o 8/10 pain and is crying. Patient's is at bedside trying to comfort her. Pain medication administered as ordered. Will continue to monitor.
--- NOTE | 2019-12-05 15:05 | Diagnostic Imaging Report ---
Indication: Abdominal pain and distention Technique: Small bowel follow-through. Fluoroscopic and radiographic study was performed. Total fluoroscopy time 18.2 seconds Total fluoroscopy dose 1.05 mGy Total number of images: One fluoroscopic run and 6 radiographic images Comparison: Pouchogram 12/04/[address] abdomen 11/26/2019 Findings: Fluoroscopic imaging demonstrates an indwelling PICC line. Swallowing is normal there is prompt exit of contrast through a normal caliber esophagus and into the stomach. There is an indwelling gastrostomy tube. There are midline surgical skin emil and material in the pelvis in keeping with known history of recent surgery and known continent ostomy. On films taken 15 and 30 minutes post administration of enteric contrast is no significant transit of contrast outside the stomach. By 45 minutes however there is passage into the proximal small bowel loops which are normal in caliber. Subsequent images demonstrate continued transit of contrast and by approximately 75 minutes after contrast administration there is passage of contrast up to the continent ostomy reservoir. Opacified small bowel loops are normal in caliber. There is no evidence to suggest small bowel obstruction. On follow-up radiograph taken 3 hours post administration contrast the enteric contrast is cleared. This may be related to emptying of the ostomy reservoir. IMPRESSION: No evidence of small bowel obstruction.
--- NOTE | 2019-12-05 15:19 | NUR ---
RADIOLOGY DEPT., UGI AND SMALL BOWEL FOLLOW THROUGH EXAM IS NOW COMPLETED.-P.DYE
[2019-12-05 16:00] VITALS: BP 130/87
--- NOTE | 2019-12-05 18:37 | NUR ---
NURSE NOTES: True ileo: 640cc liquid greenish brown output. true gt: 240cc liquid clear/greenish output. UO: 1025cc daniel output. Patient c/o pain throughout shift. Patient has moments of emotional distress and is comforted by .
--- NOTE | 2019-12-05 19:11 | NUR ---
NURSE NOTES: Received report from AURELIO Schneider. Pt is awake, lying semi-duarte's; comfortably resting. at bedside. No signs of acute distress noted. Pt denies any pain at this time. AOx4; able to make needs known. Checked IV site, lines, and rates; patent and running. No erythema, bleeding or infiltration noted. Bed at lowest position. Siderails up x2. Brakes on. Call light within reach. Will continue to monitor.
--- NOTE | 2019-12-05 19:25 | NUR ---
NURSE NOTES: Received report from AURELIO Montalvo. Pt is sleeping, lying semi-duarte's; comfortably resting. No signs of acute distress noted. Pt denies any pain at this time. AOx4; able to make needs known. Checked IV site, line, and rate; patent and running. No erythema, bleeding or infiltration noted. Bed at lowest position. Siderails up x2. Brakes on. Call light within reach. Will continue to monitor. Addendum: 12/05/19 at 1956 by Binh Powell RN Wrong pt documentation.
--- NOTE | 2019-12-05 19:30 | NUR ---
HAND-OFF: Report given to Abiola CAREY. Patient is stable.
[2019-12-05 20:00] VITALS: BP 125/79
[2019-12-05] MEDS: Venofer 200mg in NS 110ml IV SCH (20:47)
[2019-12-05] MEDS: Dyna-Hex 2% Top Sol 2oz TOPIC SCH (20:47)
[2019-12-05] MEDS: Cyclobenzaprine 10mg Tab ORAL PRN (20:47)
[2019-12-05] MEDS: Fat Emulsion Iv 20% 216 ML in Tpn 1,560 ML IV SCH (20:49)
[2019-12-06] VITALS: BP 140/86
[2019-12-06] MEDS: Ketorolac 30mg Inj IV PRN ×4 (00:46→21:39)
[2019-12-06 04:00] VITALS: BP 144/78
[2019-12-06] MEDS: HYDROmorphone 1mg/ml Carpuject SUBQ PRN (04:20)
[2019-12-06] MEDS: NovoLOG Insulin Flexpen SUBQ SCH ×4 (06:00→17:58)
[2019-12-06] MEDS: PCA shift volume MISC SCH (07:02)
--- NOTE | 2019-12-06 07:07 | NUR ---
HAND-OFF: Report given to AURELIO Girard. Pt is awake and in stable condition. Plan of care endorsed.
--- NOTE | 2019-12-06 07:28 | NUR ---
NURSE NOTES: Received pt from AURELIO Culver. pt was resting comfortably no acute distress, pain management with PSYCHOLOGIST CHIEF, Ileo, and GT in place. call light w/in reach.
[2019-12-06 07:29] LABS: ALANINE AMINOTRANSFERASE 71 U/L (12-78); ALBUMIN 2.6 G/DL (3.4-5.0); ALBUMIN/GLOBULIN RATIO 0.6 (1.0-2.7); ALKALINE PHOSPHATASE 149 U/L (46-116); ANION GAP 5 mmol/L (5-15); ASPARTATE AMINO TRANSFERASE 59 U/L (15-37); BILIRUBIN,TOTAL 0.6 MG/DL (0.2-1.0); BLOOD UREA NITROGEN 22 mg/dL (7-18); CALCIUM 9.3 MG/DL (8.5-10.1); CARBON DIOXIDE 33 MMOL/L (21-32); CHLORIDE 101 MMOL/L (98-107); CREATININE 0.7 MG/DL (0.55-1.30); SODIUM 139 MMOL/L (136-145)
[2019-12-06 07:41] LABS: BASOPHILS % (AUTO) 1.2 % (0.0-2.0); EOSINOPHILS % (AUTO) 3.4 % (0.0-3.0); HEMATOCRIT 38.7 % (37.0-47.0); HEMOGLOBIN 13.5 G/DL (12.0-16.0); LYMPHOCYTES % (AUTO) 10.6 % (20.0-45.0); MEAN CORPUSCULAR VOLUME 90 FL (80-99); NEUTROPHILS % (AUTO) 77.8 % (45.0-75.0); PLATELET COUNT 375 K/UL (150-450); RED BLOOD COUNT 4.32 M/UL (4.20-5.40); RED CELL DISTRIBUTION WIDTH 11.6 % (11.6-14.8); WHITE BLOOD COUNT 9.1 K/UL (4.8-10.8)
[2019-12-06 08:00] VITALS: BP 134/78
--- NOTE | 2019-12-06 09:07 | NUR ---
RD ASSESSMENT & RECOMMENDATIONS SEE CARE ACTIVITY FOR COMPLETE ASSESSMENT DAILY ESTIMATED NEEDS: Needs based on Surgery, 58kg 28-33 kcals/kg 1121-7964 total kcals 58-116 g protein/kg 54-108 g total protein 25-30 mL/kg 5568-4791 total fluid mLs NUTRITION DIAGNOSIS: Altered GI function r/t malfunctioning ileostomy as evidenced by s/p laparotomy with release of small bowel obstruction, multiple adhesions, and internal hernia with repair of enterotomy x2 and repair of access segment enterotomy, per MD, npo w/ ileus on TPN. CURRENT DIET:NPO, on TPN PARENTERAL NUTRITION RECOMMENDATIONS: D/AA Rate: 65 IL Rate: 9 Total Rate: 74 Volume: 1776 % Dextrose: 17 % AA: 5.2 Energy (kcals/kg): 1658 Protein (g/kg protein): 81 Nonprotein KCALS: 1334 GIR (mg CHO/kg/min): 3.2 % Fat KCALS: 26 NCP: N Ratio: 103:1 TPN Comment: - Maintain D17% + AA5.2% @65ml/hr with 20% IL @9ml/hr. all 3:1 - TPN at goal provides 29kcal/kg and 1.4g/lg pro per day - IL <30% - GIR <5 ADDITIONAL RECOMMENDATIONS: * OBTAIN AN UPDATED STANDING WEIGHT ABLE * WEEKLY STANDING WEIGHTS * MONITOR BGS, LFTS, LYTES ON TPN -> AST elevated (12/05), monitor trend. rec to DC D5 IVF for 36g less dextrose per day. . .
[2019-12-06] MEDS ORDERED: Metoclopramide 10mg/2ml Inj IVP PRN ×2 (09:30→09:45)
--- NOTE | 2019-12-06 09:32 | General Progress Note ---
Progress Note Progress Note AVSS Still with intermittent "severe" cramping pain gstrografin UGI and SBS revealed 75 minute transit to pouch, no obstruction, slow emptying of stomach Abdomen less distended, less tender, soft, healing well Urine 1600 Gastrostomy 490 Kock pouch ileo 640 WBC 9100 Hgb 13.5 BUN 22 Cr 0.7 albumin up 2.6 Imp: Slowly resolving ileus post-op release multiple points of obstruction Plan: Reglan 10mg IV q6h plug gastrostomy continuously as tolerated d/c CHUTE FEEDER - percocet prn continue npo and TPN Vishnu Cuevas MD Dec 06, 2019 09:32
--- NOTE | 2019-12-06 11:00 | NUR ---
NURSE NOTES: after d/c F/C patient urinated without problem.
--- NOTE | 2019-12-06 11:58 | NUR ---
NURSE NOTES: D/C F/C and PROJ ENGINEER as order.
[2019-12-06 11:59] VITALS: BP 116/73
[2019-12-06] MEDS: oxyCODONE HCL/Acetaminophen 5/325mg ORAL PRN ×2 (12:37→20:04)
[2019-12-06 16:00] VITALS: BP 125/74
--- NOTE | 2019-12-06 19:30 | NUR ---
NURSE NOTES: Receive a report from AURELIO Girard. Round is done. Pt is awake and alert. Self-voiding on BSC. States that pain level is going up. Will provide pain medication as planned. G-tube and ileostomy are drained with natural gravity. Light green color drainage noted on G-tube and thickened dark drainage noted via ileostomy but output is little. On NPO. TPN and fluid are running via PICC on CLARISSE. Call light within reach. Will continue to monitor.
--- NOTE | 2019-12-06 19:52 | NUR ---
HAND-OFF: Report given to AURELIO Akhtar. pt is in stable condition.
[2019-12-06 20:00] VITALS: BP 142/83
[2019-12-06] MEDS: Fat Emulsion Iv 20% 216 ML in Tpn 1,560 ML IV SCH (20:12)
[2019-12-06] MEDS: Dyna-Hex 2% Top Sol 2oz TOPIC SCH (20:13)
--- NOTE | 2019-12-06 21:00 | NUR ---
NURSE NOTES: Despite pain medication, pain level did not goes down much and noted nausea with retching. Unclamp G-tube and drained 550ml light green output noted. Given Zofran 4mg IVS. Will continue to monitor closely.
[2019-12-06] MEDS: Cyclobenzaprine 10mg Tab ORAL PRN (21:28)
--- NOTE | 2019-12-06 21:30 | NUR ---
NURSE NOTES: Pt says that pain and muscle cramp are around abdomen. Given muscle relaxant. Less than a minute after clamp G-tube, pt is feeling nausea and noted retching. Declamp G-tube and greenish drainage and gas output noted. Provide deep breathing and relaxation. Will continue to monitor.
--- NOTE | 2019-12-06 23:10 | NUR ---
NURSE NOTES: Another dose of Toradol 30mg IVS and Reglan for nausea. Pt states that pain level is going up. Call Dr. Cuevas for pt's pain. Waiting for call-back.
[2019-12-06] MEDS ORDERED: HYDROmorphone 1mg/ml Carpuject SUBQ PRN (23:15)
--- NOTE | 2019-12-06 23:15 | NUR ---
NURSE NOTES: Receive a call back from Dr. Cuevas. Receive new orders of discontinuing Toradol and adding Dilaudid 1mg SUQ q4hr prn for sever breakthrough pain and 30min G-tube clamp after po medication. Read back orders. Order noted and carried out. Update to pt and . Waiting for medication authorization.
[2019-12-07] VITALS: BP 165/89
[2019-12-07] MEDS: NovoLOG Insulin Flexpen SUBQ SCH ×4 (00:03→18:00)
[2019-12-07] MEDS: HYDROmorphone 1mg/ml Carpuject SUBQ PRN ×3 (00:04→10:24)
--- NOTE | 2019-12-07 01:00 | NUR ---
NURSE NOTES: After prn Dilaudid 1mg suq earlier, pt is asleep. No nausea noted. Will continue to monitor.
--- NOTE | 2019-12-07 03:00 | NUR ---
NURSE NOTES: Pt is asleep. flushing done. Noted thick greenish drainage noted via ileostomy and bile color output via G-tube. Will continue to monitor.
[2019-12-07] MEDS ORDERED: HYDROmorphone 1mg/ml Carpuject SUBQ PRN (03:15)
[2019-12-07 04:00] VITALS: BP 154/80
[2019-12-07] MEDS: oxyCODONE HCL/Acetaminophen 5/325mg ORAL PRN (04:18)
--- NOTE | 2019-12-07 05:40 | NUR ---
NURSE NOTES: Given Percocet 5/325 1t po and 30min G-tube clamp but abdominal pain does not relieve. Pt says that she can't do it any more with the pain. She does not want to take oral pain medication anymore. Provide prn dilaudid 1mg sub and emotional support done. Will discuss with Dr. Cuevas about pt's recurring pain. Will continue to monitor.
--- NOTE | 2019-12-07 06:10 | NUR ---
NURSE NOTES: Pt is asleep and no nausea noted. Will continue to monitor. 12hr output Urine: 800ml Ileostomy: -20ml G-tube: 830ml
[2019-12-07 07:23] LABS: BASOPHILS % (AUTO) 0.6 % (0.0-2.0); EOSINOPHILS % (AUTO) 0.7 % (0.0-3.0); HEMATOCRIT 38.8 % (37.0-47.0); HEMOGLOBIN 13.7 G/DL (12.0-16.0); LYMPHOCYTES % (AUTO) 7.9 % (20.0-45.0); MEAN CORPUSCULAR VOLUME 88 FL (80-99); MONOCYTES % (AUTO) 5.9 % (1.0-10.0); NEUTROPHILS % (AUTO) 84.8 % (45.0-75.0); PLATELET COUNT 459 K/UL (150-450); RED CELL DISTRIBUTION WIDTH 11.5 % (11.6-14.8); WHITE BLOOD COUNT 13.1 K/UL (4.8-10.8)
[2019-12-07 07:25] LABS: ALANINE AMINOTRANSFERASE 62 U/L (12-78); ALBUMIN 2.7 G/DL (3.4-5.0); ALBUMIN/GLOBULIN RATIO 0.6 (1.0-2.7); ALKALINE PHOSPHATASE 155 U/L (46-116); ANION GAP 9 mmol/L (5-15); ASPARTATE AMINO TRANSFERASE 43 U/L (15-37); BILIRUBIN,TOTAL 0.6 MG/DL (0.2-1.0); BLOOD UREA NITROGEN 26 mg/dL (7-18); CALCIUM 9.6 MG/DL (8.5-10.1); CARBON DIOXIDE 29 MMOL/L (21-32); CHLORIDE 100 MMOL/L (98-107); CREATININE 0.9 MG/DL (0.55-1.30); POTASSIUM 4.2 MMOL/L (3.5-5.1); SODIUM 138 MMOL/L (136-145)
--- NOTE | 2019-12-07 07:30 | NUR ---
NURSE NOTES: Pt is ambulating with in the hallway. Pain is tolerating. Will continue to monitor.
--- NOTE | 2019-12-07 07:43 | NUR ---
NURSE NOTES: Received report from AURELIO Akhtar. Patient in bed, A&Ox4. On room air, no signs of distress or labored breathing. PICC line dry, intact, and infusing TPN and IV fluids. Illeo and GT connected to drainage bags and draining. Patient reporting decreasing pain. Bed in lowest position with call light in reach, side rails up x3. at bedside. Will continue with plan of care.
--- NOTE | 2019-12-07 07:45 | NUR ---
HAND-OFF: Report given to AURELIO Christie. Round is done. No acute distress noted.
[2019-12-07 08:00] VITALS: BP 136/82
[2019-12-07] MEDS ORDERED: NS Irrig 1000ml ONE (10:15)
--- NOTE | 2019-12-07 10:58 | General Progress Note ---
Progress Note Progress Note AVSS Did not tolerate gastrostomy plugged with severe pain relieved by reconnecting gastrostomy to drainage with large volume output Abdomen soft, less distended, minimal tenderness Urine 1300 Gastrostomy 1180 Kock pouch ileo nil enteric WBC up 13,100 Hgb 13.7 Platelets up 459,000 BUN up 26 Cr 0.9 albumin 2.7 Imp: Persistent ileus ? intra-abdominal seroma, etc Plan; Increase IV fluids, gastrostomy to continuous drainage continue NPO, TPN may need CT scan in AM Dilaudid focusing machine operator demand dosing only - d/c Vishnu Yao MD Dec 07, 2019 10:58
[2019-12-07] MEDS ORDERED: Rate Change PCA 1 Each MISC PRN (11:00)
[2019-12-07] MEDS ORDERED: Naloxone 0.4mg/ml Inj IVP PRN (11:00)
[2019-12-07] MEDS ORDERED: DiphenhydrAMINE 50mg/ml Inj IVP PRN (11:00)
[2019-12-07] MEDS ORDERED: PCA HYDROmorphone 1mg/ml 30 ML IV PRN (11:00)
[2019-12-07] MEDS ORDERED: PCA Education Pamphlet MISC ONE (11:00)
[2019-12-07] MEDS ORDERED: Mineral Oil 30ml ud ORAL ONE (11:00)
[2019-12-07 12:00] VITALS: BP 137/81
[2019-12-07 16:00] VITALS: BP 140/81
[2019-12-07] MEDS: PCA shift volume MISC SCH (19:13)
--- NOTE | 2019-12-07 19:20 | NUR ---
NURSE NOTES: Receive a report from AURELIO Christie. Round is done. Pt is awake and alert. No acute distress noted. Restarted ROASTER HELPER pump during AM shift. Pt feels comfortable now despite level of pain 02/17. No respiratory distress noted. No N/V noted. Ileostomy and G-tube are drained with natural gravity q 3hr flushing. On NPO and TPN and fluid are running via PICC on CLARISSE. Call light within reach. Will continue to monitor.
--- NOTE | 2019-12-07 19:20 | NUR ---
HAND-OFF: Report given to AURELIO Akthar. Rounds done.
[2019-12-07] MEDS: Dyna-Hex 2% Top Sol 2oz TOPIC SCH (19:56)
[2019-12-07] MEDS: Fat Emulsion Iv 20% 216 ML in Tpn 1,560 ML IV SCH (19:57)
[2019-12-07] MEDS: Phytonadione 10 mg/mL 1ml amp SUBQ SCH (19:57)
[2019-12-07 20:00] VITALS: BP 142/88
--- NOTE | 2019-12-07 20:30 | NUR ---
NURSE NOTES: Pt says that she used to take Baking soda mixture at bed time for overreacting bladder. Since removal of vitale catheter, she says that she needs more effort to urinate. Remind of G-tube clamping after oral medication to hold it. Pt concerns about clamping G-tube and wants to talk to Dr. Cuevas. Will follow up.
[2019-12-07] MEDS: DiphenhydrAMINE 50mg/ml Inj IVP PRN (22:33)
[2019-12-08] VITALS: BP 148/82
--- NOTE | 2019-12-08 | NUR ---
NURSE NOTES: Given Benadryl for itching and relieved itching sensation. No N/V noted. Pain is tolerating with using DEVICE REPAIR TECHNICIAN pump. Remind of using DEVICE REPAIR TECHNICIAN pump. No respiratory distress noted. Will continue to monitor.
[2019-12-08] MEDS: Ketorolac 30mg Inj IV PRN ×4 (03:55→23:46)
[2019-12-08 04:00] VITALS: BP 137/86
--- NOTE | 2019-12-08 04:30 | NUR ---
NURSE NOTES: After getting one time Toradol 30mg IVS, pt feels comfortable but still level of pain is 6/10. On FACILITY MAINTENANCE MANAGER pump. No N/V noted. No respiratory distress noted. Will continue to monitor.
[2019-12-08] MEDS: NovoLOG Insulin Flexpen SUBQ SCH ×5 (05:49→23:42)
[2019-12-08 05:52] LABS: BASOPHILS % (AUTO) 1.4 % (0.0-2.0); EOSINOPHILS % (AUTO) 3.7 % (0.0-3.0); HEMATOCRIT 36.6 % (37.0-47.0); HEMOGLOBIN 12.7 G/DL (12.0-16.0); LYMPHOCYTES % (AUTO) 13.6 % (20.0-45.0); MEAN CORPUSCULAR VOLUME 89 FL (80-99); MONOCYTES % (AUTO) 6.8 % (1.0-10.0); NEUTROPHILS % (AUTO) 74.6 % (45.0-75.0); PLATELET COUNT 473 K/UL (150-450); RED BLOOD COUNT 4.13 M/UL (4.20-5.40); RED CELL DISTRIBUTION WIDTH 11.5 % (11.6-14.8); WHITE BLOOD COUNT 11.4 K/UL (4.8-10.8)
--- NOTE | 2019-12-08 06:00 | NUR ---
NURSE NOTES: No acute distress noted. No N/V noted. Noted gas and not much output via ileostomy. Will continue to monitor. 12hr output Urine: 550ml Ileostomy:0ml with foul smell G-tube: 205ml-light green to clear
[2019-12-08 06:27] LABS: ALANINE AMINOTRANSFERASE 91 U/L (12-78); ALBUMIN 2.4 G/DL (3.4-5.0); ALBUMIN/GLOBULIN RATIO 0.6 (1.0-2.7); ALKALINE PHOSPHATASE 153 U/L (46-116); ANION GAP 12 mmol/L (5-15); ASPARTATE AMINO TRANSFERASE 64 U/L (15-37); BILIRUBIN,TOTAL 0.8 MG/DL (0.2-1.0); BLOOD UREA NITROGEN 19 mg/dL (7-18); CARBON DIOXIDE 26 MMOL/L (21-32); CHLORIDE 101 MMOL/L (98-107); CREATININE 0.7 MG/DL (0.55-1.30); PHOSPHORUS 3.5 MG/DL (2.5-4.9); POTASSIUM 3.6 MMOL/L (3.5-5.1); SODIUM 139 MMOL/L (136-145)
[2019-12-08] MEDS: PCA shift volume MISC SCH ×2 (07:00→19:00)
--- NOTE | 2019-12-08 07:45 | NUR ---
NURSE NOTES: Patient is in bed awake and able to verbalize needs. Stable. C/o constant pain, patient is using DESTINATION SIGN REPAIRER and prefers Toradol for breakthrough. GT and ileo to drainage bag, will flush q3hr as ordered. Patient is able to ambulate. PICC running TPN, IVF, and DESTINATION SIGN REPAIRER as ordered. Patient is in bed in locked and lowest position with call light within reach and trapeze overhead. Will continue to monitor.
--- NOTE | 2019-12-08 07:45 | NUR ---
HAND-OFF: Report given to AURELIO Schneider. Round is done. No acute distress/pain noted. Pt ambulated the unit with with steady gait.
[2019-12-08 08:00] VITALS: BP 120/86
[2019-12-08] MEDS ORDERED: Omnipaque-300 100ml vial INJ PRN (09:00)
--- NOTE | 2019-12-08 09:05 | General Progress Note ---
Progress Note Progress Note AVSS Still having abdominal pain and. very little output from Kock Pouch ileostomy Abdomen stable mild distention, non-tender, incision clean Urine 1100 Gastrostomy 525 Kock pouch ileo nil enteric fluid WBC 11,400 Platelets up 473,000 BUN down 19 albumin 2.4 Imp: Persistent abdominal pain and ileus r/o intraabdominal abscess Plan; CT abd+pelvis with oral and IV contrast U/A and urine C&S continue TPN, npo Vishnu Cuevas MD Dec 08, 2019 09:05
--- NOTE | 2019-12-08 10:30 | NUR ---
NURSE NOTES: Urine sample sent downstairs.
[2019-12-08 10:47] LABS: APPEARANCE,URINE CLEAR; BILIRUBIN, URINE NEGATIVE (NEGATIVE); COLOR,URINE PALE YELLOW; GLUCOSE, URINE (UA) NEGATIVE (NEGATIVE); KETONES,URINE NEGATIVE (NEGATIVE); LEUKOCYTE ESTERASE ,URINE NEGATIVE (NEGATIVE); NITRITE,URINE NEGATIVE (NEGATIVE); PH,URINE 7 (4.5-8.0); PROTEIN,URINE NEGATIVE (NEGATIVE); UROBILINOGEN,URINE NORMAL MG/DL (0.0-1.0)
--- NOTE | 2019-12-08 11:53 | Diagnostic Imaging Report ---
INDICATION: Abdominal pain TECHNIQUE: Continuous helical transaxial imaging of the abdomen and pelvis was obtained from the lung bases to the pubic symphysis during intravenous contrast administration. Coronal 2-D reformats were also obtained. Study obtained in a Siemens sensation [address] Automatic Exposure Control was utilized. Total Dose length Product (DLP): 191.[address] Dose Index Volume (CTDIvol): 4.1 mGy COMPARISON: CT abdomen pelvis 11/26/2019 FINDINGS: Lungs: The visualized lung bases are clear. Liver: Unremarkable Gallbladder/biliary system: No gallstones are identified. There is no evidence of intrahepatic or extrahepatic biliary ductal dilatation. Spleen: Unremarkable Pancreas: Unremarkable Kidneys/Bladder: Tiny bilateral hypodensities may be cystic within the kidney parenchyma. There is no hydronephrosis. Small amount of air noted in the bladder presumably iatrogenic from recent Brock catheter placement. Please correlate clinically.. Adrenal glands: Unremarkable Aorta/IVC: Some tortuosity and calcification of aorta are again noted. Bowel/peritoneum: There is a gastrostomy tube within the stomach which appears to be in good position. The patient has had interval surgery. There are skin emil still present in a long vertical scar in the ventral abdominal wall. The scar and emil extend both above and below the umbilicus. Above the umbilicus the scar is unremarkable. At and just below the umbilicus there is a focus of air measuring about 3.5 cm transversely 11 cm in the craniocaudal plane. The collection of air is superficial and extra-fascial within the subcutaneous fat. There are tiny bubbles of air posterior to this within the rectus muscle and small pockets of air are noted just deep to the abdominal wall rectus muscle. There are loops of small bowel closely adherent to the abdominal wall posterior to this. These small bowel loops show mild wall thickening and are fairly well opacified. There is no definitive demonstration of a enterocutaneous fistula. However the localized presence of air within the abdominal wall and the subcutaneous extrafascial region suggests this possibility. Subtotal colectomy again noted. There is a continent ileostomy on the left side. The catheter appears in good position. There is mild generalized distention of small bowel but the degree of this is mild and certainly within normal. There is no evidence of small bowel obstruction. Lastly there is a 4.6 x 2.9 x 7.1 cm well-circumscribed fluid collection noted in the presacral region. This shows some rim enhancement and does not contain air. Given relatively recent surgery this is likely a postoperative fluid collection such as a liquefied hematoma or seroma. There is no air within the collection, but as always, an abscess or infected fluid is not excludable by imaging. Bones: There is narrowing of intervertebral discs and accompanying endplate osteophyte formation. Hypertrophied facet joints also demonstrated. IMPRESSION: Interval abdominal surgery. 2.5 x 3.5 x 11 cm collection of extra fascial subcutaneous air just deep to the skin emil at and below the umbilicus. Conceivable that this is postoperative air, although one would expect that any postsurgical air would have resorbed by now. No definitive enterocutaneous fistula is demonstrated but possibility of such is not excluded. 4.6 x 2.9 x 7.1 cm presacral postsurgical fluid collection. Seroma versus liquefied hematoma. Abscess is not excludable. No evidence of bowel obstruction. Left lower quadrant continent ileostomy with good position of the catheter. Status post subtotal colectomy. Gastrostomy Air in the urinary bladder. This is presumably iatrogenic from recent Brock catheter placement. Other incidental findings as above. The CT scanner at [facility] is accredited by the [employer] and the scans are performed using dose optimization techniques as appropriate to a performed exam including Automatic Exposure control.
[2019-12-08 12:00] VITALS: BP 140/81
--- NOTE | 2019-12-08 12:35 | NUR ---
*-*INSURANCE*-* ALL CLINICALS AND REVIEWS FAXED TO: [facility] REF#[id number] PH: [phone] FAX: [phone]
--- NOTE | 2019-12-08 12:45 | NUR ---
CASE MANAGEMENT: REVIEW 12/06/19 SI:RECURRING SMALL BOWEL OBSTRUCTION . MALFUNCTION OF KOCK POUCH 99.0 73 20 116/73 96% ON RA CO2-33 BUN 22 AST 59 ALKP 155 IS:IV D5@30 ML/HR TPN Q24HR IV AMPICILLIN Q6HR SUPERVISOR CHEMICAL DILAUDID BID HYDROXYZINE Q6HR.PRN VIT K SQ QWK TORADOL Q6HR/PRN KATHIE-HEX 2% TP QD \: 3E MED SURG UNIT DCP: HOME WHEN STABLE PLAN: ~plug gastrostomy continuously as tolerated ~d/c SUPERVISOR CHEMICAL - percocet prn ~continue npo and TPN CASE MANAGEMENT: REVIEW 12/07/19 SI:RECURRING SMALL BOWEL OBSTRUCTION . MALFUNCTION OF KOCK POUCH 98.0 79 21 136/82 97% ON RA WBC 13.1 PLT 459 BUN 26 BGLU 128 AST 43 ALKP 155 IS:IV D5@75ML/HR TPN Q24HR IV AMPICILLIN Q6HR SUPERVISOR CHEMICAL DILAUDID BID HYDROXYZINE Q6HR.PRN VIT K SQ QWK TORADOL Q6HR/PRN KATHIE-HEX 2% TP QD \: 3E MED SURG UNIT DCP: HOME WHEN STABLE PLAN: ~Increase IV fluids ~gastrostomy to continuous drainage ~continue NPO, TPN ~may need CT scan in AM ~Dilaudid price economist demand dosing only - d/c percocet MONITOR WBC CASE MANAGEMENT: REVIEW 12/08/19 SI:RECURRING SMALL BOWEL OBSTRUCTION . MALFUNCTION OF KOCK POUCH 98.6 82 18 120/86 99% ON RA WBC 11.4 PLT 473 BUN 19 BGLU 126 AST/ALT 64/91 ALKP 153 IS:IV D5@75ML/HR TPN Q24HR IV AMPICILLIN Q6HR SUPERVISOR CHEMICAL DILAUDID BID HYDROXYZINE Q6HR.PRN VIT K SQ QWK TORADOL Q6HR/PRN KATHIE-HEX 2% TP QD \: 3E MED SURG UNIT DCP: HOME WHEN STABLE PLAN: ~CT abd+pelvis with oral and IV contrast ~U/A and urine C&S ~continue TPN, npo WBC DECREASING Addendum: 12/08/19 at 1307 by ZACHARY POLANCO LVN 11/28/19 ~~~~S/P LAPAROTOMY RELEASE SMALL BOWEL OBSTRUCTION
[2019-12-08 16:00] VITALS: BP 125/77
[2019-12-08] MEDS: Simethicone 80mg tab ORAL PRN (18:48)
--- NOTE | 2019-12-08 18:57 | NUR ---
NURSE NOTES: True ileo: 245cc greenish brown liquid output. true gt: 1045cc greenish liquid output. UO: 1725cc daniel urine. Patient c/o gas pain, simethicone given as ordered. WIll endorse to power and recovery shift engineer to monitor patient for pain and discomfort. Patient ambulated x3 during shift.
--- NOTE | 2019-12-08 19:30 | NUR ---
HAND-OFF: Report given to Abiola CAREY. Patient is stable.
--- NOTE | 2019-12-08 19:59 | NUR ---
NURSE NOTES: Received report from AURELIO Schneider. Pt is awake, lying high-duarte's; comfortably resting. at bedside. No signs of acute distress noted. Pt denies any pain at this time. Checked IV site, lines, and rates; patent and running. Dressing dry and intact. No erythema, bleeding or infiltration noted. Bed at lowest position. Brakes on. Siderails up x2. Call light within reach. Will continue to monitor.
[2019-12-08 20:00] VITALS: BP 132/81
[2019-12-08] MEDS: Fat Emulsion Iv 20% 216 ML in Tpn 1,560 ML IV SCH (20:10)
[2019-12-08] MEDS: Dyna-Hex 2% Top Sol 2oz TOPIC SCH (20:10)
[2019-12-08] MEDS: ESTRADIOL VAGIN SCH (20:11)
[2019-12-08] MEDS: DiphenhydrAMINE 50mg/ml Inj IVP PRN (20:33)
[2019-12-09] VITALS: BP 122/72
[2019-12-09] MEDS: DiphenhydrAMINE 50mg/ml Inj IVP PRN ×2 (03:17→21:14)
[2019-12-09] MEDS: Simethicone 80mg tab ORAL PRN (03:54)
[2019-12-09 04:00] VITALS: BP 127/76
[2019-12-09] MEDS: NovoLOG Insulin Flexpen SUBQ SCH ×3 (05:20→17:54)
[2019-12-09 05:43] LABS: BASOPHILS % (AUTO) 1.2 % (0.0-2.0); EOSINOPHILS % (AUTO) 3.2 % (0.0-3.0); HEMATOCRIT 36.5 % (37.0-47.0); HEMOGLOBIN 12.9 G/DL (12.0-16.0); LYMPHOCYTES % (AUTO) 8.6 % (20.0-45.0); MEAN CORPUSCULAR VOLUME 89 FL (80-99); MONOCYTES % (AUTO) 7.6 % (1.0-10.0); NEUTROPHILS % (AUTO) 79.4 % (45.0-75.0); PLATELET COUNT 490 K/UL (150-450); RED BLOOD COUNT 4.09 M/UL (4.20-5.40); RED CELL DISTRIBUTION WIDTH 11.6 % (11.6-14.8); WHITE BLOOD COUNT 11.6 K/UL (4.8-10.8)
[2019-12-09 05:50] LABS: ALANINE AMINOTRANSFERASE 141 U/L (12-78); ALBUMIN 2.5 G/DL (3.4-5.0); ALBUMIN/GLOBULIN RATIO 0.6 (1.0-2.7); ALKALINE PHOSPHATASE 163 U/L (46-116); ANION GAP 7 mmol/L (5-15); ASPARTATE AMINO TRANSFERASE 89 U/L (15-37); BILIRUBIN,TOTAL 0.9 MG/DL (0.2-1.0); BLOOD UREA NITROGEN 23 mg/dL (7-18); CALCIUM 8.7 MG/DL (8.5-10.1); CARBON DIOXIDE 33 MMOL/L (21-32); CHLORIDE 96 MMOL/L (98-107); CREATININE 0.7 MG/DL (0.55-1.30); POTASSIUM 3.5 MMOL/L (3.5-5.1); SODIUM 136 MMOL/L (136-145)
[2019-12-09] MEDS: Ketorolac 30mg Inj IV PRN ×3 (06:13→19:36)
[2019-12-09] MEDS: PCA shift volume MISC SCH ×2 (07:00→19:24)
--- NOTE | 2019-12-09 07:31 | NUR ---
HAND-OFF: Report given to AURELIO Seay. Pt is awake and in stable condition. Plan of care endorsed.
[2019-12-09] MEDS ORDERED: Naloxone 0.4mg/ml Inj IVP PRN (07:51)
[2019-12-09 08:00] VITALS: BP 122/73
[2019-12-09] MEDS ORDERED: Rate Change PCA 1 Each MISC PRN (08:00)
--- NOTE | 2019-12-09 08:14 | NUR ---
NURSE NOTES: Handoff received from TYLOR CAREY. Patient is awake and alert, breaths are even and unlabored on room air, no signs of distress noted. Pt reports that pain is "much better," reports pain at 4/10. Abdominal dressing is dry and intact. G tube and ileo tube are patent and draining to gravity. CLARISSE PICC is asymptomatic and running TPN and IVF as ordered.
--- NOTE | 2019-12-09 08:24 | General Progress Note ---
Progress Note Progress Note AVSS Still with intermittent "gas pains" requiring CONVEYOR OPERATOR demand dosing and Toradol IV Abdomen mildly distended, scant tenderness, only sero-sang drainage on wound packing - no enteric fluid or gas - re-packed subcutaneous pocket umbilicus to pubis of midline incision Urine 2425 Gastrostomy 1345 Kock pouch ileo 415 (had po contrast for CT scan yesterday) WBC 11,600 Platelets up 490,000 K 3.5 albumin 2.5 Imp: Persistent leukocytosis - no evidence of enterocutaneous fistula Plan; ID and GI consultations continue npo, TPN, gastrostomy to continuous drainage, continuous drainage of Kock pouch f/u labs Vishnu Cuevas MD Dec 09, 2019 08:24
[2019-12-09] MEDS ORDERED: PCA HYDROmorphone 1mg/ml 30 ML IV PRN (11:00)
[2019-12-09 12:00] VITALS: BP 121/75
--- NOTE | 2019-12-09 13:32 | NUR ---
CASE MANAGEMENT: REVIEW 12/09/19 SI:S/P LAPAROTOMY RELEASE SMALL BOWEL OBSTRUCTION RECURRING SMALL BOWEL OBSTRUCTION . MALFUNCTION OF KOCK POUCH 98.8 79 21 121/75 97% ON RA WBC 11.6 PLT 490 CL- 96 CO2 33 BUN 23 BGLU 123 AST/ALT 89/141 ALKP 163 IS:IV D5@75ML/HR TPN Q24HR FOOD CLERK DILAUDID Q24HR HYDROXYZINE Q6HR.PRN NOVOLOG SQ Q6HR VIT K SQ QWK TORADOL Q6HR/PRN KATHIE-HEX 2% TP QD \: 3E MED SURG UNIT DCP: HOME WHEN STABLE PLAN: ~CT abd+pelvis with oral and IV contrast- Left lower quadrant continent ileostomy with good position of the catheter. ID AND GI CONSULT CONT NPO GASTROTOMY CONTINUOUS DRAINAGE CONTINUOUS DRAINAGE OF KOCK POUCH WOUND CARE- ABD DRESSING REPACK
--- NOTE | 2019-12-09 13:44 | NUR ---
RD ASSESSMENT & RECOMMENDATIONS SEE CARE ACTIVITY FOR COMPLETE ASSESSMENT DAILY ESTIMATED NEEDS: Needs based on Surgery, 58kg 28-33 kcals/kg 4909-1566 total kcals 58-116 g protein/kg 54-108 g total protein 25-30 mL/kg 2278-8005 total fluid mLs NUTRITION DIAGNOSIS: Altered GI function r/t malfunctioning ileostomy as evidenced by s/p laparotomy with release of small bowel obstruction, multiple adhesions, and internal hernia with repair of enterotomy x2 and repair of access segment enterotomy, per MD, npo w/ ileus on TPN. CURRENT DIET:NPO, on TPN PO DIET RECOMMENDATIONS: Diet per MD PARENTERAL NUTRITION RECOMMENDATIONS: D/AA Rate: 65 IL Rate: 9 Total Rate: 74 Volume: 1776 % Dextrose: 17 % AA: 5.2 Energy (kcals/kg): 1658 Protein (g/kg protein): 81 Nonprotein KCALS: 1334 GIR (mg CHO/kg/min): 3.2 % Fat KCALS: 26 NCP: N Ratio: 103:1 TPN Comment: - Rec D17% + AA5.2% @65ml/hr with 20% IL @9ml/hr. all 3:1 - Maintain at goal. - TPN at goal provides 29kcal/kg and 1.4g/lg pro per day - IL <30% - GIR <5 ADDITIONAL RECOMMENDATIONS: * OBTAIN AN UPDATED STANDING WEIGHT ABLE * WEEKLY STANDING WEIGHTS * MONITOR BGS, LFTS, LYTES ON TPN -> LFTS TRENDING UP rec to DC D5 IVF for 90g less dextrose per day. Cont to monitor LFTs, need for formulary change (Rec DC D5 for now and monitor) . .
--- NOTE | 2019-12-09 14:24 | NUR ---
*-*INSURANCE*-* ALL CLINICALS AND REVIEWS FAXED TO: ELZBIETA Albert/[facility] REF#[id number] PH: [phone] FAX: [phone]
[2019-12-09 16:00] VITALS: BP 134/76
--- NOTE | 2019-12-09 16:30 | Consultation ---
DATE OF CONSULTATION: 12/09/2019 CONSULTING PHYSICIAN: Clarence El M.D. REFERRING PHYSICIAN: Vishnu Cuevas M.D. CHIEF COMPLAINT: Abdominal pain. HISTORY OF PRESENT ILLNESS: This is a very pleasant 69-year-old female known to me from prior admissions. She has history of ulcerative colitis requiring total colectomy and history of Kock pouch placement and multiple other surgeries after that. Please refer to Dr. Vishnu Cuevas's note for that and for previous surgeries. The patient now is admitted to the hospital, had another lap surgery this admission. Postop, there was a lot of air collection under the tissue and also under the surgical site, and also the patient had a very low transient of contrast through the intestine, so GI consult requested for evaluation. Of note, the patient is currently on TPN. PAST MEDICAL HISTORY: Ulcerative colitis. PAST SURGICAL HISTORY: Multiple abdominal surgeries including total colectomy, see above for details. ALLERGIES: Metronidazole. MEDICATIONS: Please see medication reconciliation list. FAMILY HISTORY: Noncontributory. SOCIAL HISTORY: There is no history of tobacco, alcohol, or drug abuse. PHYSICAL EXAMINATION: VITAL SIGNS: Temperature is 97.7, pulse 83, respirations 21, blood pressure 122/73. HEENT: Normocephalic and atraumatic. Sclerae anicteric. NECK: Supple. No evidence of obvious lymphadenopathy. CARDIOVASCULAR: Regular rhythm. Plus S1 and S2. LUNGS: Decreased breath sounds bilaterally based on the supine exam. ABDOMEN: Postsurgical. Surgical site is covered by the coverage. There is tenderness diffusely. Bowel sounds are hypoactive. EXTREMITIES: No cyanosis. No clubbing. No edema. LABORATORY DATA: White count is , hemoglobin 12, hematocrit 36, and platelet count 490,000. Chem 7 - sodium 136, potassium 3.5, BUN 23, creatinine 0.7. AST is 89, ALT of 141, alkaline phosphatase of 163. ASSESSMENT AND PLAN: This is a 69-year-old female with recent surgery on this admission, now has air collection at the surgical site. Also has a low transient of contrast through the intestine. Also has abdominal pain, abnormal liver function tests. In terms of air collection, I spoke with the surgeon. Apparently, there is a question there might be a leak. Apparently, this site was opened up by the surgeon yesterday and we are going to follow. The patient might benefit from repeat CT to make sure it has resolved. Also, we will follow to see if there is any bile or intestinal fluid leakage into the Band-Aid that is covering the wound and that would suggest there might be a leak. In terms of the low intestinal motility is expected. At this time, there is no obvious obstruction. Currently, the patient is on Reglan p.r.n. for nausea. We will consider changing Reglan to every 6 hours [id number] and maybe add motility medication to improve intestinal motility, but at this time, after discussion with the surgeon, we are going to hold off until tomorrow. Abnormal liver function test is most probably secondary to TPN. We will monitor closely. I want to thank Dr. Vishnu Cuevas for this kind referral. Clarence El M.D. DR: JOSE ENRIQUE JOB#: [id number] CC:
--- NOTE | 2019-12-09 18:26 | Infectious Diseases Prog Note ---
Assessment/Plan Assessment/Plan Full consult dictated: A) 1) leukocytosis, ? source, urine culture - + gram neg, ua negative 2) s/p re-pack of subcutaneous pocket 3) sbo - s/p surgery 4) pmh noted 5) allergies - metronidazole, hay fever P) 1) ua, cultures 2) monitor wbc 3) will f/u 4) thank you Subjective Allergies: Coded Allergies: METRONIDAZOLE (Verified Allergy, Mild, 09/18/18) HEADACHE, DIZZINESS Uncoded Allergies: hay fever (Allergy, Unknown, 09/24/16) Objective Vital Signs Last 24 Hour Vital Signs Date Time Temp Pulse Resp B/P (MAP) Pulse Ox O2 Delivery O2 Flow Rate FiO2 12/09/19 16:00 97.6 74 19 134/76 (95) 98 12/09/19 16:00 74 19 98 12/09/19 13:01 97.7 12/09/19 12:22 97.7 12/09/19 12:22 97.7 12/09/19 12:00 97 12/09/19 12:00 98.8 79 21 121/75 (90) 97 12/09/19 09:00 Room Air 12/09/19 08:00 97.7 83 21 122/73 (89) 97 12/09/19 08:00 97 12/09/19 04:00 70 17 95 12/09/19 04:00 98.9 70 17 127/76 (93) 95 12/09/19 00:00 75 18 95 12/09/19 00:00 99.1 75 18 122/72 (89) 95 12/08/19 21:00 Room Air 12/08/19 20:00 95 Room Air 21 12/08/19 20:00 98.6 72 17 132/81 (98) 96 12/08/19 20:00 72 17 96 Microbiology Date/Time Source Procedure Growth Status 12/08/19 15:00 Other Gram Stain - Final Resulted 12/08/19 15:00 Other Wound Culture - Preliminary Resulted 12/08/19 10:30 Urine,Clean Catch Urine Culture - Preliminary Gram Negative Bacillus 1 Resulted Laboratory Tests Test 12/09/19 04:50 White Blood Count 11.6 K/UL (4.8-10.8) H Red Blood Count 4.09 M/UL (4.20-5.40) L Hemoglobin 12.9 G/DL (12.0-16.0) Hematocrit 36.5 % (37.0-47.0) L Mean Corpuscular Volume 89 FL (80-99) Mean Corpuscular Hemoglobin 31.5 PG (27.0-31.0) H Mean Corpuscular Hemoglobin Concent 35.4 G/DL (32.0-36.0) Red Cell Distribution Width 11.6 % (11.6-14.8) Platelet Count 490 K/UL (150-450) H Mean Platelet Volume 6.4 FL (6.5-10.1) L Neutrophils (%) (Auto) 79.4 % (45.0-75.0) H Lymphocytes (%) (Auto) 8.6 % (20.0-45.0) L Monocytes (%) (Auto) 7.6 % (1.0-10.0) Eosinophils (%) (Auto) 3.2 % (0.0-3.0) H Basophils (%) (Auto) 1.2 % (0.0-2.0) Sodium Level 136 MMOL/L (136-145) Potassium Level 3.5 MMOL/L (3.5-5.1) Chloride Level 96 MMOL/L (98-107) L Carbon Dioxide Level 33 MMOL/L (21-32) H Anion Gap 7 mmol/L (5-15) Blood Urea Nitrogen 23 mg/dL (7-18) H Creatinine 0.7 MG/DL (0.55-1.30) Estimat Glomerular Filtration Rate > 60 mL/min (>60) Glucose Level 123 MG/DL (74-106) H Calcium Level 8.7 MG/DL (8.5-10.1) Total Bilirubin 0.9 MG/DL (0.2-1.0) Aspartate Amino Transf (AST/SGOT) 89 U/L (15-37) H Alanine Aminotransferase (ALT/SGPT) 141 U/L (12-78) H Alkaline Phosphatase 163 U/L (46-116) H Total Protein 6.7 G/DL (6.4-8.2) Albumin 2.5 G/DL (3.4-5.0) L Globulin 4.2 g/dL Albumin/Globulin Ratio 0.6 (1.0-2.7) L Current Medications Medications (Trade) Dose Ordered Sig/[place] Route PRN Reason Start Time Stop Time Status Last Admin Dose Admin Acetaminophen (Tylenol) 1,000 mg Q4H PRN GT temp>100.2 or headache 11/28/19 15:30 12/28/19 15:29 Acetaminophen/ Butalbital/ Caffeine (Fioricet) 1 tab Q6H PRN ORAL For Headache 11/26/19 18:45 12/26/19 18:44 12/04/19 02:17 Chlorhexidine Gluconate (Mohini-Hex 2%) 1 applic DAILY@2000 TOPIC 11/26/19 20:00 02/24/20 19:59 12/08/19 20:10 Cyclobenzaprine HCl (Flexeril) 10 mg Q6H PRN ORAL Muscle Spasm 12/03/19 10:30 01/02/20 10:29 12/06/19 21:28 Dextrose 1,000 ml @ 0 mls/hr Q24H PRN IV PN interrupted or unavailable 11/30/19 20:00 12/30/19 19:59 Dextrose (Dextrose 50%) 25 ml Q30M PRN IV Hypoglycemia 11/30/19 09:15 02/28/20 09:14 Dextrose (Dextrose 50%) 50 ml Q30M PRN IV Hypoglycemia 11/30/19 09:15 02/28/20 09:14 Diphenhydramine HCl (Benadryl) 25 mg Q4H PRN IVP Itching/Pruritis 11/29/19 09:50 12/29/19 09:49 12/09/19 03:17 Fat Emulsion Intravenous 216 ml/Amino Acids/ Electrolytes/ Dextrose 1,776 ml @ 74 mls/hr Q24H IV 12/01/19 20:00 12/31/19 19:59 12/08/19 20:10 Fluocinonide (Lidex) 1 applic BID PRN TOPIC Itching 12/03/19 10:30 03/02/20 10:29 Hydromorphone HCl 30 ml @ 0 mls/hr Q24H PRN IV For Pain 12/09/19 11:00 12/11/19 10:59 12/09/19 11:52 Hydroxyzine HCl (Atarax) 50 mg Q6H PRN ORAL Itching 11/30/19 09:00 12/30/19 08:59 12/03/19 09:24 Insulin Aspart (NovoLOG) Q6HR SUBQ 12/01/19 00:00 02/29/20 00:00 12/07/19 00:03 Ketorolac Tromethamine (Toradol 30mg) 30 mg Q6H PRN IV Severe Breakthru Pain (>7) 12/07/19 11:00 12/12/19 10:59 12/09/19 12:31 Metoclopramide HCl (Reglan) 10 mg Q6H PRN IVP Nausea & Vomiting 12/06/19 09:45 01/05/20 09:29 12/06/19 22:50 Miscellaneous Medication (ASSISTANT DIRECTOR OF [employer]IDENCE [employer] Rate Change) 1 ea DAILY PRN MISC rate change 12/09/19 08:00 12/11/19 07:59 Miscellaneous Medication (ASSISTANT [employer] shift volume) 1 ea Q12HR@0700,1900 MISC 12/09/19 19:00 12/11/19 18:59 Naloxone HCl (Narcan) 0.1 mg Q1M PRN IVP RR<10/min OR SBP<90 mmHg 12/09/19 07:51 12/11/19 07:49 Ondansetron HCl (Zofran) 4 mg Q4H PRN IVP Nausea & Vomiting 11/28/19 15:30 12/28/19 15:29 12/09/19 08:54 Patient Own Medication (Patient's Own Med) 1 ea 2XW@2100 VAGIN 12/04/19 21:00 01/03/20 20:59 12/08/19 20:11 Patient Own Medication (Patient's Own Med) 1 ea EVERY 12 HOURS BOTH EYES 11/26/19 21:00 12/26/19 20:59 12/09/19 10:05 Phytonadione (Vitamin K) 10 mg ONCE A WEEK SUBQ 11/30/19 20:00 02/28/20 19:59 12/07/19 19:57 Simethicone (Mylicon) 80 mg QID PRN ORAL GAS 12/08/19 18:45 03/07/20 18:44 12/09/19 03:54 Sodium Chloride 1,000 ml @ 75 mls/hr [id number] IV 12/09/19 13:54 01/08/20 13:53 12/09/19 14:36 Hazel De Santiago MD Dec 09, 2019 18:26
--- NOTE | 2019-12-09 18:30 | NUR ---
NURSE NOTES: Ileo output: +45ml G tube output: +375 Urine output: 900 Patient ambulated in the hallway x3 during day shift, reports that pain is managed with the current pain medicine regimen, abdominal dressing changed per order.
--- NOTE | 2019-12-09 19:29 | NUR ---
HAND-OFF: Report given to ROBERTH CAREY.
--- NOTE | 2019-12-09 19:30 | NUR ---
NURSE NOTES: Receive a report from AURELIO Chou. Round is done. Pt is awake and alert. No acute distress noted. Still pain level is 6/10 but looking pleasant. Request for prn Toradol. Dressing kept dry and clean. Ileostomy and G-tube are drained in natural gravity. On ASSEMBLER BILLIARD TABLE for pain control. Call light within reach. Will continue to monitor.
[2019-12-09] MEDS: Dyna-Hex 2% Top Sol 2oz TOPIC SCH (19:36)
[2019-12-09 20:00] VITALS: BP 108/71
[2019-12-09] MEDS: Fat Emulsion Iv 20% 216 ML in Tpn 1,560 ML IV SCH (20:06)
--- NOTE | 2019-12-09 21:10 | NUR ---
NURSE NOTES: Given Benadryl for itching. Will continue to monitor. Removed two vial because the first vial got broke d/t drop from COW. CN made aware and waste of the first vial.
[2019-12-09 22:56] LABS: BILIRUBIN, URINE NEGATIVE (NEGATIVE); GLUCOSE, URINE (UA) NEGATIVE (NEGATIVE); KETONES,URINE NEGATIVE (NEGATIVE); LEUKOCYTE ESTERASE ,URINE NEGATIVE (NEGATIVE); NITRITE,URINE NEGATIVE (NEGATIVE); PH,URINE 8 (4.5-8.0); PROTEIN,URINE NEGATIVE (NEGATIVE); UROBILINOGEN,URINE NORMAL MG/DL (0.0-1.0)
[2019-12-09 23:01] LABS: APPEARANCE,URINE CLEAR; COLOR,URINE YELLOW
[2019-12-10] VITALS: BP 118/66
--- NOTE | 2019-12-10 01:45 | Consultation ---
DATE OF CONSULTATION: 12/09/2019 INFECTIOUS DISEASES CONSULTATION CONSULTING PHYSICIAN: Hazel De Santiago MD. ATTENDING PHYSICIAN: Vishnu Cuevas MD. REFERRING PHYSICIAN: Vishnu Cuevas MD. REASON FOR CONSULTATION: Elevated white count, rule out underlying etiology. CHIEF COMPLAINT: The patient's chief complaint coming to the hospital is bowel obstruction. HISTORY OF PRESENT ILLNESS: This is a very pleasant 69-year-old female, who has history of abdominal pain. 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 The patient comes in with abdominal pain to [facility] and a CT scan of the abdomen and pelvis showed what looks like bowel obstruction. The patient is status post laparotomy with release of bowel obstruction and multiple adhesions. The patient has elevated white count. Infectious Diseases consultation was requested. Workup shows she has ? UTI with gram-negative rods in the urine culture; however, UA was negative. She does have a PICC line, unclear if that is also infected. The patient did have a followup CT scan, which showed subcutaneous air just deep to the skin emil and below the umbilicus. The patient is status post repack of her subcutaneous pocket. Because of antibiotics, Infectious Diseases consult was requested. The patient will be cultured and followup urinalysis will be ordered. REVIEW OF SYSTEMS: GENERAL: The patient is doing well. She has no fevers. HEAD AND NECK: No thrush or dysphagia. CARDIAC: No chest pain. GASTROINTESTINAL: No nausea or vomiting. Currently, she came in with abdominal pain, but currently she has some abdominal discomfort, but no severe pain currently. CARDIAC: No chest pain. PULMONARY: No shortness of breath. SKIN: No rash. NEUROLOGIC: No seizures. Generalized fatigue. No focal weakness. Alert and responsive. No seizure activity mentioned. GENITOURINARY: She has a Brock. PAST MEDICAL HISTORY: The patient's past medical history includes the following. The patient has past medical history of recurrent bowel obstruction, ulcerative colitis, multiple abdominal surgeries, proctocolectomy with Kock procedure, and history of laparotomy. ALLERGIES: Metronidazole, hay fever. SOCIAL HISTORY: Negative for smoking, alcohol, or drug abuse. FAMILY HISTORY: Noncontributory. Negative for exposure to tuberculosis or cancer. MEDICATIONS: Upon reviewing the MAR, she is on the following medications. She is on IV fluids. She is on naloxone. She is on Mylicon, ketorolac, metoclopramide, Lidex, insulin, IV fluids, hydralazine, diphenhydramine, acetaminophen, and Zofran. Outside medications noted and reconciliated. PHYSICAL EXAMINATION: VITAL SIGNS: Temperature 97.6 degrees, pulse rate 74, respirations 19, blood pressure 134/76, and saturation 98%. GENERAL: Alert and responsive, in no acute distress. HEAD AND NECK: Oral exam, no thrush. Eye exam, no icterus. Normocephalic. Neck is supple. No JVD. HEART: Regular. No gallop or murmur. ABDOMEN: Soft. Some discomfort. No rebound. LUNGS: Clear bilaterally. No rhonchi or rales. SKIN: No rash. MUSCULOSKELETAL: No effusion. Legs are without cellulitis. PERIPHERAL VASCULAR: No cyanosis. GENITOURINARY: She has a Brock. Urine is slightly cloudy. LINE SITES: Without phlebitis. NEUROLOGIC: Intact and nonfocal. Alert, responsive, and oriented. LABORATORY AND DIAGNOSTIC DATA: White count 11.6, hemoglobin 12.9. White count was as high as 13.1 two days ago. Creatinine 0.7. LFTs noted. The patient will be re-cultured including blood and followup UA and culture. Wound culture is pending. Previous urine culture with 30,000 to 40,000 white cells; however, urinalysis was unremarkable and completely negative, this is from 12/08/2019. CT scan of the abdomen and pelvis, the most recent one showed collection of extrafascial subcutaneous air just deep to the skin emil and below the umbilicus, and also looks like seroma versus hematoma. ASSESSMENT AND PLAN: 1. The patient has elevated white count or leukocytosis, questionable source. The patient is status post repacking of subcutaneous pocket seen on CT scan I believe. Unclear if this is the reason why the patient had elevated white count. There was no obvious abscess mentioned. It was only hematoma versus seroma. The patient has urine culture with gram-negative rods, unclear if she has UTI; however, UA is negative. She also has a PICC line, rule out PICC line infection. At this time, we will give antibiotics only if indicated. I would hold off on antibiotics right now. She has no fevers. Recheck blood cultures, UA, C and S, and we can give antibiotics if indicated. Monitor leukocytosis and labs. 2. The patient has history of small-bowel obstruction, status post release of the bowel obstruction. 3. The patient has history of multiple abdominal surgeries. 4. History of ulcerative colitis. 5. History of proctocolectomy with Kock pouch and history of multiple revisions and bowel obstruction in the past and history of ulcerative colitis. 6. Allergies to metronidazole, hay fever. 7. Social history negative. 8. Family history noncontributory. 9. MAR was noted. 10. Case discussed with RN. 11. Continue treatment per primary consultants. Hazel De Santiago M.D. DR: Lazaro JOB#: [id number] CC: MATT
[2019-12-10] MEDS: Ketorolac 30mg Inj IV PRN ×4 (01:52→20:53)
[2019-12-10 04:00] VITALS: BP 107/71
[2019-12-10] MEDS: NovoLOG Insulin Flexpen SUBQ SCH ×4 (05:48→18:00)
--- NOTE | 2019-12-10 06:00 | NUR ---
NURSE NOTES: No acute distress noted. No N/V noted. Says that she feels gas bubbles. Encourage to ambulate while awake. Pt is aware. Not much noted output via ileostomy. On REMANUFACTURING TECHNICIAN for pain control tolerating. Will continue to monitor. 12hr output Urine: 650ml Ileostomy: 60ml-80ml=(-20ml) G-tube: 360-88=017ca
[2019-12-10 06:45] LABS: BASOPHILS % (AUTO) 1.4 % (0.0-2.0); EOSINOPHILS % (AUTO) 5.2 % (0.0-3.0); HEMATOCRIT 35.7 % (37.0-47.0); HEMOGLOBIN 12.3 G/DL (12.0-16.0); LYMPHOCYTES % (AUTO) 16.1 % (20.0-45.0); MEAN CORPUSCULAR VOLUME 90 FL (80-99); MONOCYTES % (AUTO) 7.5 % (1.0-10.0); NEUTROPHILS % (AUTO) 69.8 % (45.0-75.0); PLATELET COUNT 477 K/UL (150-450); RED BLOOD COUNT 3.98 M/UL (4.20-5.40); RED CELL DISTRIBUTION WIDTH 11.7 % (11.6-14.8); WHITE BLOOD COUNT 8.3 K/UL (4.8-10.8)
[2019-12-10 07:05] LABS: ALANINE AMINOTRANSFERASE 109 U/L (12-78); ALBUMIN 2.3 G/DL (3.4-5.0); ALBUMIN/GLOBULIN RATIO 0.6 (1.0-2.7); ALKALINE PHOSPHATASE 143 U/L (46-116); ANION GAP 7 mmol/L (5-15); ASPARTATE AMINO TRANSFERASE 59 U/L (15-37); BILIRUBIN,TOTAL 1.1 MG/DL (0.2-1.0); BLOOD UREA NITROGEN 23 mg/dL (7-18); CARBON DIOXIDE 30 MMOL/L (21-32); CHLORIDE 101 MMOL/L (98-107); CREATININE 0.7 MG/DL (0.55-1.30); POTASSIUM 3.5 MMOL/L (3.5-5.1); SODIUM 138 MMOL/L (136-145)
[2019-12-10 07:10] LABS: BILIRUBIN,DIRECT 0.5 MG/DL (0.0-0.3)
--- NOTE | 2019-12-10 07:19 | NUR ---
HAND-OFF: Report given to Dawood Edwards RNs. Round is done.
[2019-12-10] MEDS: PCA shift volume MISC SCH ×2 (07:25→19:24)
[2019-12-10] MEDS ORDERED: Naloxone 0.4mg/ml Inj IVP PRN (07:39)
--- NOTE | 2019-12-10 07:40 | NUR ---
NURSE NOTES: Handoff received from O RN. Patient is awake and alert, no distress is noted. Patient reports pain level of 6/10 and a feeling of "fullness," will medicate as ordered. G tube and ileo tube are patent and draining to gravity, abdominal dressing is clean and intact, CLARISSE PICC is asymptomatic and running IVF and TPN as ordered. Bed is in low and locked position, side rails up x2, call light within reach.
[2019-12-10] MEDS ORDERED: Rate Change PCA 1 Each MISC PRN (07:45)
--- NOTE | 2019-12-10 07:51 | General Progress Note ---
Assessment/Plan Problem List: (1) MALFUNCTIONING JASMINE POUCH (2) Small bowel obstruction ICD Codes: K56.609 - Unspecified intestinal obstruction, unspecified as to partial versus complete obstruction SNOMED: 277768498 (3) Transaminitis ICD Codes: R74.0 - Nonspecific elevation of levels of transaminase and lactic acid dehydrogenase [LDH] SNOMED: 909249882, 198898679 (4) Abdominal pain ICD Codes: R10.9 - Unspecified abdominal pain SNOMED: 38757240 (5) Ulcerative colitis ICD Codes: K51.90 - Ulcerative colitis, unspecified, without complications SNOMED: 42849978 Assessment/Plan: feeling better wbc improving abd pain is better minimal discharge in wound dressing cont current care will add reglan and +/- Motegritiy when ok with surgery Subjective ROS Limited/Unobtainable: Yes Allergies: Coded Allergies: METRONIDAZOLE (Verified Allergy, Mild, 09/18/18) HEADACHE, DIZZINESS Uncoded Allergies: hay fever (Allergy, Unknown, 09/24/16) Objective Last 24 Hour Vital Signs Date Time Temp Pulse Resp B/P (MAP) Pulse Ox O2 Delivery O2 Flow Rate FiO2 12/10/19 04:00 98.1 69 18 107/71 (83) 98 12/10/19 04:00 69 18 96 12/10/19 00:00 65 18 96 12/10/19 00:00 98.5 65 18 118/66 (83) 98 12/09/19 21:00 Room Air 12/09/19 20:32 96 Room Air 21 12/09/19 20:00 68 16 96 12/09/19 20:00 98.7 68 18 108/71 (83) 98 12/09/19 16:00 97.6 74 19 134/76 (95) 98 12/09/19 16:00 74 19 98 12/09/19 13:01 97.7 12/09/19 12:22 97.7 12/09/19 12:22 97.7 12/09/19 12:00 97 12/09/19 12:00 98.8 79 21 121/75 (90) 97 12/09/19 09:00 Room Air 12/09/19 08:00 97.7 83 21 122/73 (89) 97 12/09/19 08:00 97 Intake and Output 12/09/19 12/10/19 19:00 07:00 Intake Total 1489 ml 1788 ml Output Total 1320 ml 930 ml Balance 169 ml 858 ml Intake IV Total 1489 ml 1788 ml Output Urine Total 900 ml 650 ml Other 420 ml 280 ml Laboratory Tests 12/09/19 19:00: Urine Color Yellow, Urine Appearance Clear, Urine pH 8, Urine Specific [place] 1.010, Urine Protein Negative, Urine Glucose (UA) Negative, Urine Ketones Negative, Urine Blood Negative, Urine Nitrite Negative, Urine Bilirubin Negative , Urine Urobilinogen Normal, Urine Leukocyte Esterase Negative 12/10/19 05:10: White Blood Count 8.3, Red Blood Count 3.98L, Hemoglobin 12.3, Hematocrit 35.7L , Mean Corpuscular Volume 90, Mean Corpuscular Hemoglobin 30.8, Mean Corpuscular Hemoglobin Concent 34.4, Red Cell Distribution Width 11.7, Platelet Count 477H, Mean Platelet Volume 6.6, Neutrophils (%) (Auto) 69.8, Lymphocytes ( %) (Auto) 16.1L, Monocytes (%) (Auto) 7.5, Eosinophils (%) (Auto) 5.2H, Basophils (%) (Auto) 1.4, Sodium Level 138, Potassium Level 3.5, Chloride Level 101, Carbon Dioxide Level 30, Anion Gap 7, Blood Urea Nitrogen 23H, Creatinine 0.7, Estimat Glomerular Filtration Rate > 60, Glucose Level 109H, Calcium Level 9.0, Total Bilirubin 1.1H, Direct Bilirubin 0.5H, Aspartate Amino Transf (AST/ SGOT) 59H, Alanine Aminotransferase (ALT/SGPT) 109H, Alkaline Phosphatase 143H, Total Protein 6.3L, Albumin 2.3L, Globulin 4.0, Albumin/Globulin Ratio 0.6L Height (Feet): 5 Height (Inches): 7.00 Weight (Pounds): 124 General Appearance: alert EENT: PERRL/EOMI Neck: supple Cardiovascular: normal rate Respiratory/Chest: lungs clear Abdomen: soft, hypoactive bowel sounds Extremities: non-tender Clarence El MD Dec 10, 2019 07:51
[2019-12-10 08:00] VITALS: BP 135/72
--- NOTE | 2019-12-10 09:32 | NUR ---
NURSE NOTES: Abdominal dressing changed per MD order. Packing removed, noted small amount of serous, light yellow drainage on surgical wound packing. Packing was not malodorous. Wound repacked and new dressing applied. Patient tolerated dressing change well.
--- NOTE | 2019-12-10 10:33 | NUR ---
CASE MANAGEMENT: REVIEW 12/10/19 SI:S/P LAPAROTOMY RELEASE SMALL BOWEL OBSTRUCTION RECURRING SMALL BOWEL OBSTRUCTION . MALFUNCTION OF KOCK POUCH 98.2 74 16 135/72 97% ON RA BUN 23 AST/ALT 59/109 ALKP 143 PLT 477 IS:IV NS@75ML/HR TPN Q24HR SAP DATA ARCHITECT DILAUDID Q24HR HYDROXYZINE Q6HR.PRN NOVOLOG SQ Q6HR VIT K SQ QWK TORADOL Q6HR/PRN KATHIE-HEX 2% TP QD \: 3E MED SURG UNIT DCP: HOME WHEN STABLE PLAN: CONT NPO GASTROTOMY CONTINUOUS DRAINAGE CONTINUOUS DRAINAGE OF KOCK POUCH WOUND CARE- ABD DRESSING REPACK-MINIMAL DRAINAGE
[2019-12-10] MEDS ORDERED: PCA HYDROmorphone 1mg/ml 30 ML IV PRN (11:00)
[2019-12-10 12:00] VITALS: BP 123/73
--- NOTE | 2019-12-10 12:15 | General Progress Note ---
Progress Note Progress Note AVSS Abdominal pain somewhat improved. Ambulates freely. Abdomen soft, mild distention, non-tender. Lower midline incision wound clean, no drainage, re-packed with dry gauze Urine 1550 U/A neg C&S ?? UTI Gastrostomy 655 Kock pouch ileo 25cc but more enteric fluid this AM WBC down 8300 Hgb 12.3 Platelets down 477,000 BUN 23 Cr 0.7 stable albumin 2.3 LFTs decreased Imp: Prolonged ileus bowel motility disorder Still no evidence of enterocutaneous fistula - no gas accumulation in wound and no enteric fluid Leukocytosis resolved Plan: Reglan IV q6h continue npo, TPN, gastrostomy and Kock pouch catheters to continuous drainage observe wound Vishnu Cuevas MD Dec 10, 2019 12:15
--- NOTE | 2019-12-10 14:12 | NUR ---
*-*INSURANCE*-* ALL CLINICALS AND REVIEWS FAXED TO: ELZBIETA Albert/[facility] REF#[id number] PH: [phone] FAX: [phone]
[2019-12-10] MEDS: Metoclopramide 10mg/2ml Inj IVP SCH ×2 (14:50→20:48)
[2019-12-10 16:00] VITALS: BP 120/75
--- NOTE | 2019-12-10 19:08 | NUR ---
NURSE NOTES: Total urine output:1450 Total g-tube output: +350 Total ileo output: +120 Patient ambulated in the hallway x2 today, pain is managed well with current pain medicine regimen.
--- NOTE | 2019-12-10 19:33 | NUR ---
HAND-OFF: Report given to ROBERTH CAREY.
--- NOTE | 2019-12-10 19:35 | NUR ---
NURSE NOTES: Receive a report from AURELIO Marin. Round is done. Pt is awake and alert. No acute distress noted. Pain is tolerating as 5/10. On NPO. Pt is waiting for next time schedule for Toradol. Ileostomy and G-tube are drained in natural gravity with flushing. TPN and fluid are running via picc on CLARISSE. Dressing kept dry and clean. Call light within reach. Will continue to monitor.
[2019-12-10 20:00] VITALS: BP 142/87
[2019-12-10] MEDS: Dyna-Hex 2% Top Sol 2oz TOPIC SCH (20:23)
[2019-12-10] MEDS: Fat Emulsion Iv 20% 216 ML in Tpn 1,560 ML IV SCH (20:23)
--- NOTE | 2019-12-10 21:00 | NUR ---
NURSE NOTES: Given Toradol 30mg IVS for managing pain. Dressing done on PICC and site is clear without swelling or infiltration. Will continue to monitor.
[2019-12-11] VITALS (7 sets, daily range): BP systolic 132–148; BP diastolic 77–84
[2019-12-11] MEDS: Metoclopramide 10mg/2ml Inj IVP SCH ×4 (02:50→20:22)
[2019-12-11] MEDS: Ketorolac 30mg Inj IV PRN (02:50)
[2019-12-11] MEDS: NovoLOG Insulin Flexpen SUBQ SCH ×5 (06:00→23:47)
--- NOTE | 2019-12-11 06:00 | NUR ---
NURSE NOTES: No acute distress noted. Pain is tolerating with BACK SHOE CUTTER pump and Toradol 30mg IVS q6hrs prn, 01/17. No N/V noted. No itching noted. Will continue to monitor. 12 hr output Urine: 950ml Ileostomy: 45ml with foul smell Gastrostomy: 250ml- light green
[2019-12-11 06:47] LABS: BASOPHILS % (AUTO) 1.8 % (0.0-2.0); EOSINOPHILS % (AUTO) 5.2 % (0.0-3.0); HEMATOCRIT 36.8 % (37.0-47.0); HEMOGLOBIN 12.5 G/DL (12.0-16.0); LYMPHOCYTES % (AUTO) 15.2 % (20.0-45.0); MEAN CORPUSCULAR VOLUME 90 FL (80-99); MONOCYTES % (AUTO) 8.1 % (1.0-10.0); NEUTROPHILS % (AUTO) 69.7 % (45.0-75.0); PLATELET COUNT 520 K/UL (150-450); RED BLOOD COUNT 4.09 M/UL (4.20-5.40); RED CELL DISTRIBUTION WIDTH 11.7 % (11.6-14.8); WHITE BLOOD COUNT 8.6 K/UL (4.8-10.8)
[2019-12-11 07:15] LABS: ALANINE AMINOTRANSFERASE 108 U/L (12-78); ALBUMIN 2.4 G/DL (3.4-5.0); ALBUMIN/GLOBULIN RATIO 0.6 (1.0-2.7); ALKALINE PHOSPHATASE 161 U/L (46-116); ANION GAP 11 mmol/L (5-15); ASPARTATE AMINO TRANSFERASE 52 U/L (15-37); BILIRUBIN,DIRECT 0.6 MG/DL (0.0-0.3); BILIRUBIN,TOTAL 1.1 MG/DL (0.2-1.0); BLOOD UREA NITROGEN 20 mg/dL (7-18); CALCIUM 8.8 MG/DL (8.5-10.1); CARBON DIOXIDE 25 MMOL/L (21-32); CHLORIDE 108 MMOL/L (98-107); CREATININE 0.7 MG/DL (0.55-1.30); POTASSIUM 4.1 MMOL/L (3.5-5.1); SODIUM 144 MMOL/L (136-145)
[2019-12-11] MEDS: PCA shift volume MISC SCH ×2 (07:30→19:20)
--- NOTE | 2019-12-11 07:30 | NUR ---
HAND-OFF: Report given to AURELIO Schneider. Round is done. Pt ambulated this morning.
--- NOTE | 2019-12-11 07:30 | NUR ---
NURSE NOTES: Patient is ambulating around hallway. Denies pain at this time. Ileo and gt draining to bag, will flush as ordered. PICC running TPN, IVF, and TRUCK SAFETY INSPECTOR as ordered. Patient instructed to call RN for assistance if needed. All safety measures provided. Will continue to monitor.
[2019-12-11] MEDS ORDERED: Ketorolac 30mg Inj IV SCH (09:15)
[2019-12-11] MEDS ORDERED: Naloxone 0.4mg/ml Inj IVP PRN (09:24)
[2019-12-11] MEDS ORDERED: Rate Change PCA 1 Each MISC PRN (09:30)
--- NOTE | 2019-12-11 09:48 | General Progress Note ---
Progress Note Progress Note AVSS Continued intermittent severe mid-abdominal aching pain, not relieved by Dilaudid CLINICAL MEDICAL ASSISTANT demand dosing. Needing toradol but now has max use per pharmacy Abdomen soft, minimal tenderness, no drainage or air from incision - being packed lightly twice daily. Urine 2400 Gastrostomy 600 Kock pouch 165 only WBC 8600 Platelets up 520,000 BUN down 20 Cr 0.7 slight elevation LFTs Imp: Persistent abdominal pain and very slow transit of small bowel to Kock pouch No evidence of enterocutaneous fistula despite air in SQ tissues of incision ?? UTI - having move bladder spasms (pre-admission condition) - discussed with ID Plan; Trial of clear liquid diet with gastrostomy to drainage Pain Management consultation continue TPN, indwelling Kock pouch catheter to drainage f/u labs Vishnu Cuevas MD Dec 11, 2019 09:48
--- NOTE | 2019-12-11 10:45 | NUR ---
CASE MANAGEMENT: REVIEW 12/11/19 SI:S/P LAPAROTOMY RELEASE SMALL BOWEL OBSTRUCTION RECURRING SMALL BOWEL OBSTRUCTION . MALFUNCTION OF KOCK POUCH 98.6 71 18 141/77 97% ON RA BUN 20 AST/ALT 52/108 ALKP 161 PLT 520 IS:IV NS@75ML/HR TPN Q24HR NOVOLOG SQ Q6HR VIT K SQ QWK KATHIE-HEX 2% TP QD IV REGLAN Q6HR IV TORADOL X1 \: 3E MED SURG UNIT DCP: HOME WHEN STABLE PLAN: DC EMERGENCY ROOM PHYSICIAN ASSISTANT START ON CLEAR LIQ GASTROTOMY CONTINUOUS DRAINAGE CONTINUOUS DRAINAGE OF KOCK POUCH WOUND CARE- ABD DRESSING REPACK-MINIMAL DRAINAGE
[2019-12-11] MEDS ORDERED: PCA HYDROmorphone 1mg/ml 30 ML IV PRN (11:00)
--- NOTE | 2019-12-11 12:34 | General Progress Note ---
Assessment/Plan Problem List: (1) MALFUNCTIONING JASMINE POUCH (2) Small bowel obstruction ICD Codes: K56.609 - Unspecified intestinal obstruction, unspecified as to partial versus complete obstruction SNOMED: 454528595 (3) Transaminitis ICD Codes: R74.0 - Nonspecific elevation of levels of transaminase and lactic acid dehydrogenase [LDH] SNOMED: 146626489, 915686466 (4) Abdominal pain ICD Codes: R10.9 - Unspecified abdominal pain SNOMED: 84760443 (5) Ulcerative colitis ICD Codes: K51.90 - Ulcerative colitis, unspecified, without complications SNOMED: 14432695 Assessment/Plan: feeling better wbc improving abd pain is better minimal discharge in wound dressing cont current care plan Clear liquid diet per surg will hold motility drugs for now Subjective ROS Limited/Unobtainable: Yes Allergies: Coded Allergies: METRONIDAZOLE (Verified Allergy, Mild, 09/18/18) HEADACHE, DIZZINESS Uncoded Allergies: hay fever (Allergy, Unknown, 09/24/16) Objective Last 24 Hour Vital Signs Date Time Temp Pulse Resp B/P (MAP) Pulse Ox O2 Delivery O2 Flow Rate FiO2 12/11/19 09:00 Room Air 12/11/19 08:00 98.6 71 18 141/77 (98) 97 12/11/19 08:00 71 18 97 12/11/19 07:20 95 Room Air 21 12/11/19 04:45 98.1 71 18 146/79 (101) 96 12/11/19 04:00 74 18 97 12/11/19 00:00 97.7 74 18 148/78 (101) 97 12/11/19 00:00 74 18 97 12/10/19 21:00 Room Air 12/10/19 20:06 97 Room Air 21 12/10/19 20:00 97.7 73 18 142/87 (105) 98 12/10/19 20:00 73 18 98 12/10/19 16:00 99.5 72 16 120/75 (90) 97 12/10/19 16:00 16 Intake and Output 12/10/19 12/11/19 19:00 07:00 Intake Total 1564 ml 1788 ml Output Total 1920 ml 1245 ml Balance -356 ml 543 ml Intake IV Total 1564 ml 1788 ml Output Urine Total 1450 ml 950 ml Other 470 ml 295 ml Laboratory Tests 12/11/19 05:00: White Blood Count 8.6, Red Blood Count 4.09L, Hemoglobin 12.5, Hematocrit 36.8L , Mean Corpuscular Volume 90, Mean Corpuscular Hemoglobin 30.6, Mean Corpuscular Hemoglobin Concent 34.1, Red Cell Distribution Width 11.7, Platelet Count 520H, Mean Platelet Volume 6.9, Neutrophils (%) (Auto) 69.7, Lymphocytes ( %) (Auto) 15.2L, Monocytes (%) (Auto) 8.1, Eosinophils (%) (Auto) 5.2H, Basophils (%) (Auto) 1.8, Sodium Level 144, Potassium Level 4.1, Chloride Level 108H, Carbon Dioxide Level 25, Anion Gap 11, Blood Urea Nitrogen 20H, Creatinine 0.7, Estimat Glomerular Filtration Rate > 60, Glucose Level 116H, Calcium Level 8.8, Phosphorus Level 3.0, Magnesium Level 2.1, Total Bilirubin 1.1H, Direct Bilirubin 0.6H, Aspartate Amino Transf (AST/SGOT) 52H, Alanine Aminotransferase (ALT/SGPT) 108H, Alkaline Phosphatase 161H, Total Protein 6.6, Albumin 2.4L, Globulin 4.2, Albumin/Globulin Ratio 0.6L Height (Feet): 5 Height (Inches): 7.00 Weight (Pounds): 124 General Appearance: alert EENT: normal ENT inspection Neck: supple Cardiovascular: normal rate Respiratory/Chest: lungs clear Abdomen: non tender, soft Extremities: non-tender Clarence El MD Dec 11, 2019 12:34
[2019-12-11] MEDS ORDERED: NS Irrig 1000ml ONE (14:26)
--- NOTE | 2019-12-11 14:42 | NUR ---
*-*INSURANCE*-* ALL CLINICALS AND REVIEWS FAXED TO: ELZBIETA Albert/[facility] REF#[id number] PH: [phone] FAX: [phone]
[2019-12-11] MEDS: Simethicone 80mg tab ORAL PRN (17:08)
[2019-12-11] MEDS: cefTRIAXone 1 GM in D5W 50 ML IVPB SCH (18:50)
--- NOTE | 2019-12-11 18:53 | Infectious Diseases Prog Note ---
Assessment/Plan Assessment/Plan ASSESSMENT AND PLAN: 1. possible e.coli uti, urinary symptoms, leukocytosis - ceftriaxone - plan on 5 day course of abx - can discharge on bactrim oral if needed - avoid fluoroquinolones because of drug interaction and potential QT prolongation - leukocytosis resolved - monitor labs 2. The patient has history of small-bowel obstruction, status post release of the bowel obstruction. 3. The patient has history of multiple abdominal surgeries. 4. History of ulcerative colitis. 5. History of proctocolectomy with Kock pouch and history of multiple revisions and bowel obstruction in the past and history of ulcerative colitis. 6. Allergies to metronidazole, hay fever. 7. Social history negative. 8. Family history noncontributory. 9. MAR was noted. 10. Case discussed with RN. 11. Continue treatment per primary consultants. Subjective Constitutional: Reports: fatigue; Denies: fever HEENT: Denies: congestion Respiratory: Denies: shortness of breath Gastrointestinal/Abdominal: Denies: nausea, vomiting, diarrhea Genitourinary: Reports: dysuria, frequency, other - no vitale Neurologic: Denies: headache Psychiatric: Denies: depression Skin: Denies: rash Hematologic: Denies: bleeding Musculoskeletal: Denies: pain Allergies: Coded Allergies: METRONIDAZOLE (Verified Allergy, Mild, 09/18/18) HEADACHE, DIZZINESS Uncoded Allergies: hay fever (Allergy, Unknown, 09/24/16) Objective Vital Signs Last 24 Hour Vital Signs Date Time Temp Pulse Resp B/P (MAP) Pulse Ox O2 Delivery O2 Flow Rate FiO2 12/11/19 16:00 68 18 98 12/11/19 16:00 98.7 68 18 141/82 (101) 98 12/11/19 12:00 72 18 99 12/11/19 12:00 98.7 72 18 132/78 (96) 99 12/11/19 09:00 Room Air 12/11/19 08:00 98.6 71 18 141/77 (98) 97 12/11/19 08:00 71 18 97 12/11/19 07:20 95 Room Air 21 12/11/19 04:45 98.1 71 18 146/79 (101) 96 12/11/19 04:00 74 18 97 12/11/19 00:00 97.7 74 18 148/78 (101) 97 12/11/19 00:00 74 18 97 12/10/19 21:00 Room Air 12/10/19 20:06 97 Room Air 21 12/10/19 20:00 97.7 73 18 142/87 (105) 98 12/10/19 20:00 73 18 98 Height (Feet): 5 Height (Inches): 7.00 Weight (Pounds): 124 General Appearance: no acute distress HEENT: normocephalic, atraumatic, anicteric, mucous membranes moist Respiratory/Chest: lungs clear, normal breath sounds, no respiratory distress, no accessory muscle use Cardiovascular: normal rate, regular rhythm, no gallop/murmur, no JVD Abdomen: normal bowel sounds, soft, non tender, no organomegaly, non distended Genitourinary: other - no vitale Extremities: no cyanosis Skin: no rash Neurologic/Psychiatric: claims adjuster supervisor II-XII grossly normal, alert, responsive Lymphatic: no neck adenopathy Musculoskeletal: no effusion Objective CT abdomen and pelvis: IMPRESSION: Interval abdominal surgery. 2.5 x 3.5 x 11 cm collection of extra fascial subcutaneous air just deep to the skin emil at and below the umbilicus. Conceivable that this is postoperative air, although one would expect that any postsurgical air would have resorbed by now. No definitive enterocutaneous fistula is demonstrated but possibility of such is not excluded. 4.6 x 2.9 x 7.1 cm presacral postsurgical fluid collection. Seroma versus liquefied hematoma. Abscess is not excludable. No evidence of bowel obstruction. Left lower quadrant continent ileostomy with good position of the catheter. Status post subtotal colectomy. Gastrostomy Air in the urinary bladder. This is presumably iatrogenic from recent Vitale catheter placement. Microbiology Date/Time Source Procedure Growth Status 12/09/19 18:46 Blood Blood Culture - Preliminary NO GROWTH AFTER 24 HOURS Resulted 12/08/19 15:00 Other Gram Stain - Final Resulted 12/08/19 15:00 Other Wound Culture - Preliminary NO GROWTH AFTER 48 HOURS Resulted 11/27/19 04:44 Nasal Nares Right MRSA Culture - Final NO METHICILLIN RESISTANT STAPH AUREUS... Complete 11/27/19 17:00 Stool VRE Culture - Final NO VANCOMYCIN RESISTANT ENTEROCOCCUS ... Complete 12/08/19 10:30 Urine,Clean Catch Urine Culture - Final Escherichia Coli Staphylococcus Sp Coag Neg Complete Microbiology Date/Time Source Procedure Growth Status 12/09/19 18:46 Blood Blood Culture - Preliminary NO GROWTH AFTER 24 HOURS Resulted 12/09/19 18:40 Blood Blood Culture - Preliminary NO GROWTH AFTER 24 HOURS Resulted Laboratory Tests Test 12/11/19 05:00 White Blood Count 8.6 K/UL (4.8-10.8) Red Blood Count 4.09 M/UL (4.20-5.40) L Hemoglobin 12.5 G/DL (12.0-16.0) Hematocrit 36.8 % (37.0-47.0) L Mean Corpuscular Volume 90 FL (80-99) Mean Corpuscular Hemoglobin 30.6 PG (27.0-31.0) Mean Corpuscular Hemoglobin Concent 34.1 G/DL (32.0-36.0) Red Cell Distribution Width 11.7 % (11.6-14.8) Platelet Count 520 K/UL (150-450) H Mean Platelet Volume 6.9 FL (6.5-10.1) Neutrophils (%) (Auto) 69.7 % (45.0-75.0) Lymphocytes (%) (Auto) 15.2 % (20.0-45.0) L Monocytes (%) (Auto) 8.1 % (1.0-10.0) Eosinophils (%) (Auto) 5.2 % (0.0-3.0) H Basophils (%) (Auto) 1.8 % (0.0-2.0) Sodium Level 144 MMOL/L (136-145) Potassium Level 4.1 MMOL/L (3.5-5.1) Chloride Level 108 MMOL/L (98-107) H Carbon Dioxide Level 25 MMOL/L (21-32) Anion Gap 11 mmol/L (5-15) Blood Urea Nitrogen 20 mg/dL (7-18) H Creatinine 0.7 MG/DL (0.55-1.30) Estimat Glomerular Filtration Rate > 60 mL/min (>60) Glucose Level 116 MG/DL (74-106) H Calcium Level 8.8 MG/DL (8.5-10.1) Phosphorus Level 3.0 MG/DL (2.5-4.9) Magnesium Level 2.1 MG/DL (1.8-2.4) Total Bilirubin 1.1 MG/DL (0.2-1.0) H Direct Bilirubin 0.6 MG/DL (0.0-0.3) H Aspartate Amino Transf (AST/SGOT) 52 U/L (15-37) H Alanine Aminotransferase (ALT/SGPT) 108 U/L (12-78) H Alkaline Phosphatase 161 U/L (46-116) H Total Protein 6.6 G/DL (6.4-8.2) Albumin 2.4 G/DL (3.4-5.0) L Globulin 4.2 g/dL Albumin/Globulin Ratio 0.6 (1.0-2.7) L Current Medications Medications (Trade) Dose Ordered Sig/[place] Route PRN Reason Start Time Stop Time Status Last Admin Dose Admin Acetaminophen (Tylenol) 1,000 mg Q4H PRN GT temp>100.2 or headache 11/28/19 15:30 12/28/19 15:29 Acetaminophen/ Butalbital/ Caffeine (Fioricet) 1 tab Q6H PRN ORAL For Headache 11/26/19 18:45 12/26/19 18:44 12/04/19 02:17 Ceftriaxone Sodium 1 gm/ Dextrose 50 ml @ 100 mls/hr Q24H IVPB 12/11/19 18:30 12/18/19 18:29 Chlorhexidine Gluconate (Mohini-Hex 2%) 1 applic DAILY@2000 TOPIC 11/26/19 20:00 02/24/20 19:59 12/10/19 20:23 Cyclobenzaprine HCl (Flexeril) 10 mg Q6H PRN ORAL Muscle Spasm 12/03/19 10:30 01/02/20 10:29 12/06/19 21:28 Dextrose 1,000 ml @ 0 mls/hr Q24H PRN IV PN interrupted or unavailable 11/30/19 20:00 12/30/19 19:59 Dextrose (Dextrose 50%) 25 ml Q30M PRN IV Hypoglycemia 11/30/19 09:15 02/28/20 09:14 Dextrose (Dextrose 50%) 50 ml Q30M PRN IV Hypoglycemia 11/30/19 09:15 02/28/20 09:14 Diphenhydramine HCl (Benadryl) 25 mg Q4H PRN IVP Itching/Pruritis 11/29/19 09:50 12/29/19 09:49 12/09/19 21:14 Fat Emulsion Intravenous 216 ml/Amino Acids/ Electrolytes/ Dextrose 1,776 ml @ 74 mls/hr Q24H IV 12/01/19 20:00 12/31/19 19:59 12/10/19 20:23 Fluocinonide (Lidex) 1 applic BID PRN TOPIC Itching 12/03/19 10:30 03/02/20 10:29 Hydromorphone HCl 30 ml @ 0 mls/hr Q24H PRN IV For Pain 12/11/19 11:00 12/13/19 10:59 Hydroxyzine HCl (Atarax) 50 mg Q6H PRN ORAL Itching 11/30/19 09:00 12/30/19 08:59 12/03/19 09:24 Insulin Aspart (NovoLOG) Q6HR SUBQ 12/01/19 00:00 02/29/20 00:00 12/07/19 00:03 Metoclopramide HCl (Reglan) 10 mg Q6H IVP 12/10/19 15:00 01/09/20 14:59 12/11/19 15:06 Miscellaneous Medication (BOILERMAKER WELDER Rate Change) 1 ea DAILY PRN MISC rate change 12/11/19 09:30 12/13/19 09:29 Miscellaneous Medication (BOILERMAKER WELDER shift volume) 1 ea Q12HR@0700,1900 MISC 12/11/19 19:00 12/13/19 18:59 Naloxone HCl (Narcan) 0.1 mg Q1M PRN IVP RR<10/min OR SBP<90 mmHg 12/11/19 09:24 12/13/19 09:20 Ondansetron HCl (Zofran) 4 mg Q4H PRN IVP Nausea & Vomiting 11/28/19 15:30 12/28/19 15:29 12/09/19 08:54 Patient Own Medication (Patient's Own Med) 1 ea 2XW@2100 VAGIN 12/04/19 21:00 01/03/20 20:59 12/08/19 20:11 Patient Own Medication (Patient's Own Med) 1 ea EVERY 12 HOURS BOTH EYES 11/26/19 21:00 12/26/19 20:59 12/11/19 08:24 Phytonadione (Vitamin K) 10 mg ONCE A WEEK SUBQ 11/30/19 20:00 02/28/20 19:59 12/07/19 19:57 Simethicone (Mylicon) 80 mg QID PRN ORAL GAS 12/08/19 18:45 03/07/20 18:44 12/11/19 17:08 Sodium Chloride 1,000 ml @ 75 mls/hr [id number] IV 12/09/19 13:54 01/08/20 13:53 12/11/19 06:03 Hazel De Santiago MD Dec 11, 2019 18:53
--- NOTE | 2019-12-11 19:00 | NUR ---
NURSE NOTES: true ileo: 20cc brown liquid output. true gt: 970cc brownish liquid output. UO: 1750cc daniel output. Patient c/o pain throughout shift, patient is using JET WIPER. Patient ambulated independently throughout shift.
--- NOTE | 2019-12-11 19:26 | NUR ---
NURSE NOTES: Received report from Jennie CAREY. Rounding is done. Patient is in bed, a/o x4, and able to known her needs. Patient c/o pain 6/10 and will give medication as ordered. Will continue to monitor. MEDICAL SCREENER checked with outgoing nurse. Breathing is even and unlabored on room air. is at bedside. Dressing on abdomen is c/d/i. PICC line is intact and TPN and IV fluid is running. Ileostomy and G-gube are drained to gravity. No acute distress noted at this time. Bed is on alarm, locked, and lowest position. Call light within reach. Will continue to monitor.
--- NOTE | 2019-12-11 19:30 | NUR ---
HAND-OFF: Report given to Stephanie CAREY. patient is stable.
[2019-12-11] MEDS: Dyna-Hex 2% Top Sol 2oz TOPIC SCH (20:22)
[2019-12-11] MEDS: ESTRADIOL VAGIN SCH (20:23)
[2019-12-11] MEDS: Fat Emulsion Iv 20% 216 ML in Tpn 1,560 ML IV SCH (20:24)
[2019-12-11] MEDS: DiphenhydrAMINE 50mg/ml Inj IVP PRN (21:30)
[2019-12-12] VITALS: BP 133/81
[2019-12-12] MEDS: Metoclopramide 10mg/2ml Inj IVP SCH ×4 (03:51→20:28)
[2019-12-12 04:00] VITALS: BP 138/83
[2019-12-12] MEDS: NovoLOG Insulin Flexpen SUBQ SCH ×3 (06:00→18:00)
--- NOTE | 2019-12-12 06:16 | NUR ---
NURSE NOTES: Dr. Rehman came and gave prescription to patient for pain medication. Patient ambulates hallway with .
[2019-12-12] MEDS ORDERED: oxyCODONE 5mg IR tab ORAL SCH (06:23)
[2019-12-12 07:16] LABS: ALANINE AMINOTRANSFERASE 138 U/L (12-78); ALBUMIN 2.4 G/DL (3.4-5.0); ALBUMIN/GLOBULIN RATIO 0.6 (1.0-2.7); ALKALINE PHOSPHATASE 203 U/L (46-116); ANION GAP 12 mmol/L (5-15); ASPARTATE AMINO TRANSFERASE 71 U/L (15-37); BILIRUBIN,TOTAL 0.9 MG/DL (0.2-1.0); BLOOD UREA NITROGEN 13 mg/dL (7-18); CALCIUM 8.8 MG/DL (8.5-10.1); CARBON DIOXIDE 24 MMOL/L (21-32); CHLORIDE 105 MMOL/L (98-107); CREATININE 0.6 MG/DL (0.55-1.30); POTASSIUM 3.9 MMOL/L (3.5-5.1); SODIUM 141 MMOL/L (136-145)
[2019-12-12] MEDS: PCA shift volume MISC SCH ×2 (07:18→19:00)
--- NOTE | 2019-12-12 07:18 | NUR ---
HAND-OFF: Report given to Jennie CAREY. Patient in stable condition.
[2019-12-12 07:25] LABS: BASOPHILS % (AUTO) 1.9 % (0.0-2.0); EOSINOPHILS % (AUTO) 4.8 % (0.0-3.0); HEMATOCRIT 35.8 % (37.0-47.0); HEMOGLOBIN 12.1 G/DL (12.0-16.0); LYMPHOCYTES % (AUTO) 12.6 % (20.0-45.0); MEAN CORPUSCULAR VOLUME 90 FL (80-99); MONOCYTES % (AUTO) 7.2 % (1.0-10.0); NEUTROPHILS % (AUTO) 73.5 % (45.0-75.0); PLATELET COUNT 541 K/UL (150-450); RED BLOOD COUNT 3.98 M/UL (4.20-5.40); RED CELL DISTRIBUTION WIDTH 11.5 % (11.6-14.8); WHITE BLOOD COUNT 9.5 K/UL (4.8-10.8)
--- NOTE | 2019-12-12 07:30 | NUR ---
NURSE NOTES: Patient is in bed awake and able to verbalize needs. Stable. Denies severe pain at this time. GT and ileo draining to bag, will flush q3hr as ordered. PICC running TPN, IVF, AND SHIFT PRODUCTION ASSOCIATE as ordered. Patient instructed to use call light for assistance, verbalized understanding. Patient is in bed in locked and lowest position with call light within reach. Will continue to monitor.
[2019-12-12 08:00] VITALS: BP_SYST 108; BP_SYST 141; BP_DIAS 62; BP_DIAS 81
[2019-12-12] MEDS: Simethicone 80mg tab ORAL PRN (08:46)
[2019-12-12] MEDS ORDERED: Naloxone 0.4mg/ml Inj IVP PRN (09:41)
[2019-12-12] MEDS ORDERED: Rate Change PCA 1 Each MISC PRN (09:45)
[2019-12-12] MEDS ORDERED: PCA HYDROmorphone 1mg/ml 30 ML IV PRN (10:00)
--- NOTE | 2019-12-12 10:07 | General Progress Note ---
Progress Note Progress Note AVSS Now on Rocephin took 540cc po clear liquids with gastrostomy to drainage, and had increased abdominal cramping. Abdomen firmness LLQ but denies pain/tenderness, No drainage of stool or gas from midline incision open wound. 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 Rehman's consultation and Rx oxycodone IR for breakthrough and weaning off ELEMENTARY SCHOOL ART TEACHER Vishnu Cuevas MD Dec 12, 2019 10:07
--- NOTE | 2019-12-12 10:39 | General Progress Note ---
Assessment/Plan Problem List: (1) MALFUNCTIONING JASMINE POUCH (2) Small bowel obstruction ICD Codes: K56.609 - Unspecified intestinal obstruction, unspecified as to partial versus complete obstruction SNOMED: 839628722 (3) Transaminitis ICD Codes: R74.0 - Nonspecific elevation of levels of transaminase and lactic acid dehydrogenase [LDH] SNOMED: 782603702, 072150402 (4) Abdominal pain ICD Codes: R10.9 - Unspecified abdominal pain SNOMED: 70107801 (5) Ulcerative colitis ICD Codes: K51.90 - Ulcerative colitis, unspecified, without complications SNOMED: 25071347 Assessment/Plan: wbc improving abd pain is better minimal discharge in wound dressing cont current care plan cont Clear liquid diet per surg will hold motility drugs for now Subjective ROS Limited/Unobtainable: Yes Allergies: Coded Allergies: METRONIDAZOLE (Verified Allergy, Mild, 09/18/18) HEADACHE, DIZZINESS Uncoded Allergies: hay fever (Allergy, Unknown, 09/24/16) Objective Last 24 Hour Vital Signs Date Time Temp Pulse Resp B/P (MAP) Pulse Ox O2 Delivery O2 Flow Rate FiO2 12/12/19 08:00 85 18 97 12/12/19 08:00 98.3 79 141/81 (101) 97 12/12/19 07:58 Room Air 12/12/19 04:00 74 18 97 12/12/19 04:00 99.4 74 18 138/83 (101) 97 12/12/19 00:00 80 17 98 12/12/19 00:00 98.1 80 17 133/81 (98) 98 12/11/19 21:00 Room Air 12/11/19 20:00 98.3 76 18 144/84 (104) 97 12/11/19 20:00 76 18 97 12/11/19 19:41 97 Room Air 21 12/11/19 16:00 68 18 98 12/11/19 16:00 98.7 68 18 141/82 (101) 98 12/11/19 12:00 72 18 99 12/11/19 12:00 98.7 72 18 132/78 (96) 99 Intake and Output 12/11/19 12/12/19 19:00 07:00 Intake Total 1788 ml 1879 ml Output Total 2440 ml Balance 1788 ml -561 ml Intake Oral 240 ml IV Total 1788 ml 1639 ml Output Urine Total 2250 ml Other 190 ml Laboratory Tests 12/12/19 04:50: White Blood Count 9.5, Red Blood Count 3.98L, Hemoglobin 12.1, Hematocrit 35.8L , Mean Corpuscular Volume 90, Mean Corpuscular Hemoglobin 30.5, Mean Corpuscular Hemoglobin Concent 33.9, Red Cell Distribution Width 11.5L, Platelet Count 541H, Mean Platelet Volume 6.4L, Neutrophils (%) (Auto) 73.5, Lymphocytes (%) (Auto) 12.6L, Monocytes (%) (Auto) 7.2, Eosinophils (%) (Auto) 4.8H, Basophils (%) (Auto) 1.9, Sodium Level 141, Potassium Level 3.9, Chloride Level 105, Carbon Dioxide Level 24, Anion Gap 12, Blood Urea Nitrogen 13, Creatinine 0.6, Estimat Glomerular Filtration Rate > 60, Glucose Level 111H, Calcium Level 8.8, Total Bilirubin 0.9, Aspartate Amino Transf (AST/SGOT) 71H, Alanine Aminotransferase (ALT/SGPT) 138H, Alkaline Phosphatase 203H, Total Protein 6.7, Albumin 2.4L, Globulin 4.3, Albumin/Globulin Ratio 0.6L Height (Feet): 5 Height (Inches): 7.00 Weight (Pounds): 124 General Appearance: no apparent distress EENT: PERRL/EOMI Neck: supple Cardiovascular: normal rate Respiratory/Chest: decreased breath sounds Abdomen: normal bowel sounds, non tender, soft Extremities: non-tender Clarence El MD Dec 12, 2019 10:39
--- NOTE | 2019-12-12 11:35 | NUR ---
RD ASSESSMENT & RECOMMENDATIONS SEE CARE ACTIVITY FOR COMPLETE ASSESSMENT DAILY ESTIMATED NEEDS: Needs based on Surgery, 58kg 28-33 kcals/kg 8084-0575 total kcals 58-116 g protein/kg 54-108 g total protein 25-30 mL/kg 1535-0835 total fluid mLs NUTRITION DIAGNOSIS: Altered GI function r/t malfunctioning ileostomy as evidenced by s/p laparotomy with release of small bowel obstruction, multiple adhesions, and internal hernia with repair of enterotomy x2 and repair of access segment enterotomy, per MD, on TPN, on CLD. CURRENT DIET:CLD, on TPN PO DIET RECOMMENDATIONS: Diet per MD PARENTERAL NUTRITION RECOMMENDATIONS: D/AA Rate: 65 IL Rate: 9 Total Rate: 74 Volume: 1776 % Dextrose: 17 % AA: 5.2 Energy (kcals/kg): 1658 Protein (g/kg protein): 81 Nonprotein KCALS: 1334 GIR (mg CHO/kg/min): 3.2 % Fat KCALS: 26 NPC: N Ratio: 103:1 TPN Comment: - Rec D17% + AA5.2% @65ml/hr with 20% IL @9ml/hr. all 3:1 - Maintain at goal. - TPN at goal provides 29kcal/kg and 1.4g/lg pro per day - IL <30% - GIR <5 ADDITIONAL RECOMMENDATIONS: * OBTAIN AN UPDATED STANDING WEIGHT ABLE * WEEKLY STANDING WEIGHTS * MONITOR BGS, LFTS, LYTES ON TPN -> LFTS TRENDING UP rec to DC D5 IVF for 90g less dextrose per day. Monitor need for cyclic TPN .
[2019-12-12 12:00] VITALS: BP 152/96
--- NOTE | 2019-12-12 13:26 | NUR ---
*-*INSURANCE*-* ALL CLINICALS AND REVIEWS FAXED TO: ELZBIETA Albert/[facility] REF#[id number] PH: [phone] FAX: [phone]
[2019-12-12] MEDS: oxyCODONE 5mg IR tab ORAL PRN ×3 (14:23→21:41)
--- NOTE | 2019-12-12 14:37 | NUR ---
CASE MANAGEMENT:REVIEW 12/12/19 SI: POD #14 S/P RELEASE OF SMALL BOWEL OBSTRUCTION 98.8 76 18 152/96 96% ON RA AST/ALT+71/138 IS: TPN/IL @74/HR FIELD COIL WINDER DILAUDID IV ROCEPHIN Q24 IV REGLAN Q6HRS IVF@75/HR VIT K SQ Q WEEK : MED/SURG STATUS 3 [facility]
[2019-12-12] MEDS: Lidocaine HCl 2% Jelly 6ml Tube TOPIC PRN ×2 (15:06→18:21)
[2019-12-12 16:00] VITALS: BP 144/94
--- NOTE | 2019-12-12 16:45 | Consultation ---
DATE OF CONSULTATION: 12/12/2019 CONSULTING PHYSICIAN: Elliot Rehman M.D. REFERRING PHYSICIAN: Vishnu Cuevas M.D. REASON FOR CONSULTATION: Acute pain consult. HISTORY OF PRESENT ILLNESS: Dear Dr. Vishnu Cuevas, Thank you kindly for consulting me to evaluate and render an opinion as to how to proceed in the management of the patient's ongoing severe abdominal pain after her revision abdominal surgery. The patient is a 69-year-old woman, who I saw at the bedside with her after detailed discussion with yourself, Dr. Cuevas along with multiples charge nurses including RNYolis and AURELIO Freeman. The patient has had a lengthy history of gastrointestinal pathology and multiple surgeries including ulcerative colitis, proctocolectomy, and pouch continent ileostomy, status post multiple revisions, most recently in September 2018. This patient was most recently returned to [facility] through the emergency room back on November 26, 2019. Today, you consulted me to help with her persistent pain complaints as she has been continued to complain of severe pain despite being on a Dilaudid INDUSTRIAL PSYCHOLOGIST for quite some time. She has been maxing-out her dosing order INDUSTRIAL PSYCHOLOGIST settings. 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 PAST MEDICAL HISTORY: 1. Acute on chronic abdominal pain with extensive gastrointestinal surgical history as discussed above. 2. History of atrial fibrillation, status post cardiac ablation in 2012. 3. Chronic perineal pain syndrome followed in the past by outpatient pain management. 4. Dry eyes. PAST SURGICAL HISTORY: Multiple abdominal surgeries including Kock pouch surgery with multiple revisions in the past 30 years and multiple small bowel obstructions. ALLERGIES: Metronidazole, hay fever. MEDICATIONS: At home, hormone replacement therapy, Flonase, eye drops, Soma. REVIEW OF SYSTEMS: Per Dr. Vishnu Cuevas. PHYSICAL EXAMINATION: VITAL SIGNS: Age 69, height 170 cm, weight 56 kg, body mass index 20. Vital signs, temperature 99.4, pulse 74, respirations 18, oxygen saturation 97% on room, blood pressure 138/83. ABDOMEN: Abdominal exam per Dr. Cuevas. Pouch drainage bag in place. Generalized abdominal pain and tenderness. The patient is ambulatory and moves in and out of bed to the restroom. LABORATORY TESTING: December 11, 2019 shows white count 9, hematocrit 37, platelets 520,000. Sodium 144, potassium 4 1, chloride 108, bicarb 25, BUN 20, creatinine 0.7, glucose 116, calcium 8.8, phosphorus 3.0, magnesium 2.1. AST 52, ALT 108, alkaline phosphatase 161. Urinalysis on December 09, 2019 negative. IMPRESSION: 1. Acute on chronic abdominal pain with extensive gastrointestinal surgical history as discussed above. 2. History of atrial fibrillation, status post cardiac ablation in 2012. 3. Chronic perineal pain syndrome followed in the past by outpatient pain management. 4. Dry eyes. TREATMENT RECOMMENDATIONS: I had extensive discussion with the patient and her , after detailed discussions with yourself, Dr. Cuevas and multiple nurses. Although the patient does suggest mild baseline anxiety, she does not appear to be overtly anxious and I would do not believe the use of benzodiazepines is necessary at this time. The patient was using Ativan considerably back in 2018 and states that she had a difficult addiction problems to Ativan; she was unable to take herself off of Ativan for nearly eight months. Her was at the bedside corroborating all the facts discussed. The patient has been using Dilaudid INDUSTRIAL PSYCHOLOGIST over the past several at least past several days. Her current settings are 0.1 mg with at 6-minute lockout and a 6 mg 4-hour limit. The patient has been using the Dilaudid quite frequently. Although the dosing is quite low, at this time the patient is able to tolerate a liquid diet. Dr. Cuevas, has been able to advance the patient to liquid diet and the patient should be able to tolerate oral pills without difficulty. The patient agrees that she is happy to trial pills. After the patient has been seen outpatient pain management in the past for her chronic perineal pain, the patient has a significant anxiety or fear of addiction of narcotics once again, she was addicted to Ativan back in 2019. Interestingly, after I took a detailed narcotic history of the patient's usage, the patient states that she was using oxycodone/Percocet back in 2019 after a previous surgery. She thinks that oxycodone worked quite well and she did not have any difficulty discontinue the oxycodone after approximately one to two weeks. Since she did not seem to have the addiction difficulties with the oxycodone, as she did with the Ativan; I believe there might be a good option to trial her on oral oxycodone at this time to try to help wean her off of the parental narcotics to help expedite her discharge planning. Certainly, she cannot discharge home on a parental IV Dilaudid and with her concerns over narcotic addiction, I would be very hesitant to trial her on oral Dilaudid pills. Again, the oxycodone was very well tolerated back after a previous surgery, she states around 2019. I did explain in detail to the patient and to her that oxycodone certainly is extremely addictive. Also clarified the difference between oxycodone instant release and oxycodone extended release (also known as OxyContin controlled release). I explained that I would recommend to trial her on oxycodone instant release to help wean her off of the Dilaudid INDUSTRIAL PSYCHOLOGIST. The patient has been agreed for this trial. We will start her on 5 mg instant release dose of oxycodone this morning. With her breakfast, I have made available 5 mg, 10 mg and 15 mg available here in the hospital. However, I have instructed the nursing and pharmacy departments, do not use a mg dose while she is on the INDUSTRIAL PSYCHOLOGIST concurrently. I have made all three doses available at a frequency of every three hours p.r.n. for mild pain, moderate pain, and severe pain respectively. I also had discussion with the patient and her for strategy to quickly wean-off the oxycodone after she leaves the hospital. The strategy 1 would be to decrease the frequency of usage, for example to decrease the frequency from usage between every 3 to 4 hours to every 6 to 8 hours. Alternatively, the dosing milligrams of the oxycodone instant release and use, could also be decreased serially. The patient's agreed to the strategy and agreed that it was a worthwhile trial the oxycodone instant release. Reviewed the patient's laboratory studies shows that she does have elevated AST and ALT. Therefore, I have left a prescription and will use here in the hospital, oxycodone instant release to avoid the Tylenol contribution. Ideally, the patient can have my prescription dispensed for oxycodone instant release tablets, then the patient will be able to avoid using excessive Tylenol in the outpatient setting. I wrote the prescription for quantity of 75 tablets of oxycodone instant release 15 mg tablets. I have instructed the patient and her that I will give this prescription presently. You know, we have not to determine the exact necessary dose at the time of discharge. It may take several days for an outpatient pharmacy to special order these oxycodone instant release, at this quantity, in order to expedite and enable hospital discharge. The patient and agreed with the plan. Elliot Rehman M.D. DR: JODIE JOB#: [id number] CC:
[2019-12-12] MEDS: cefTRIAXone 1 GM in D5W 50 ML IVPB SCH (18:11)
--- NOTE | 2019-12-12 18:57 | NUR ---
NURSE NOTES: True ileo: 170cc brown liquid output. true gt: 745cc brownish liquid output. UO: 1650cc daniel urine. Lidocaine jelly applied to gt site x2, patient stated that she feels relief from lidocaine jelly. Oxycodone given x2 during shift, patient stated that oxycodone is effective at managing pain. Patient ambulated x3 independently.
--- NOTE | 2019-12-12 19:56 | NUR ---
NURSE NOTES: Received report from Jennie CAREY. Rounding is done. Patient is in bed, a/o x4, and able to known her needs. Patient c/o pain 4/10 and will give medication as ordered. Will continue to monitor. CARDIO CLINICIAN checked with outgoing nurse. Breathing is even and unlabored on room air. is at bedside. Dressing on abdomen is c/d/i. PICC line is intact and TPN and IV fluid is running. Ileostomy and G-gube are drained to gravity. No acute distress noted at this time. Bed is on alarm, locked, and lowest position. Call light within reach. Will continue to monitor.
--- NOTE | 2019-12-12 19:56 | NUR ---
HAND-OFF: Report given to Stephanie CAREY. Patient is stable.
[2019-12-12 20:00] VITALS: BP 153/87
[2019-12-12] MEDS: Dyna-Hex 2% Top Sol 2oz TOPIC SCH (20:28)
[2019-12-12] MEDS: Fat Emulsion Iv 20% 216 ML in Tpn 1,560 ML IV SCH (20:30)
[2019-12-13] VITALS: BP 148/73
[2019-12-13] MEDS: Metoclopramide 10mg/2ml Inj IVP SCH ×4 (02:53→21:28)
[2019-12-13 04:00] VITALS: BP 128/89
[2019-12-13 05:26] LABS: BASOPHILS % (AUTO) 2.1 % (0.0-2.0); EOSINOPHILS % (AUTO) 6.3 % (0.0-3.0); HEMATOCRIT 37.3 % (37.0-47.0); HEMOGLOBIN 12.8 G/DL (12.0-16.0); LYMPHOCYTES % (AUTO) 12.4 % (20.0-45.0); MEAN CORPUSCULAR VOLUME 89 FL (80-99); MONOCYTES % (AUTO) 6.6 % (1.0-10.0); NEUTROPHILS % (AUTO) 72.6 % (45.0-75.0); PLATELET COUNT 547 K/UL (150-450); RED BLOOD COUNT 4.21 M/UL (4.20-5.40); RED CELL DISTRIBUTION WIDTH 11.4 % (11.6-14.8); WHITE BLOOD COUNT 7.8 K/UL (4.8-10.8)
[2019-12-13 05:36] LABS: ALANINE AMINOTRANSFERASE 138 U/L (12-78); ALBUMIN 2.6 G/DL (3.4-5.0); ALBUMIN/GLOBULIN RATIO 0.6 (1.0-2.7); ALKALINE PHOSPHATASE 215 U/L (46-116); ANION GAP 8 mmol/L (5-15); ASPARTATE AMINO TRANSFERASE 65 U/L (15-37); BILIRUBIN,TOTAL 0.9 MG/DL (0.2-1.0); BLOOD UREA NITROGEN 14 mg/dL (7-18); CALCIUM 9.2 MG/DL (8.5-10.1); CARBON DIOXIDE 26 MMOL/L (21-32); CHLORIDE 102 MMOL/L (98-107); CREATININE 0.6 MG/DL (0.55-1.30); POTASSIUM 3.9 MMOL/L (3.5-5.1); SODIUM 136 MMOL/L (136-145)
[2019-12-13] MEDS: NovoLOG Insulin Flexpen SUBQ SCH ×4 (05:36→18:00)
[2019-12-13] MEDS: PCA shift volume MISC SCH (07:25)
--- NOTE | 2019-12-13 07:37 | NUR ---
HAND-OFF: Report given to Shaji CAREY. Patient in stable condition.
--- NOTE | 2019-12-13 07:44 | NUR ---
NURSE NOTES: Received pt from AURELIO Brown. pt was eating, no acute distress, GT and ileo in place, CLARISSE PICC site clean and dry. pain management with DEPUTY FIRE MARSHAL, call light w/in reach.
[2019-12-13 08:00] VITALS: BP 148/90
[2019-12-13] MEDS ORDERED: oxyCODONE 5mg IR tab ORAL PRN (09:00)
--- NOTE | 2019-12-13 09:00 | General Progress Note ---
Assessment/Plan Problem List: (1) MALFUNCTIONING JASMINE POUCH (2) Small bowel obstruction ICD Codes: K56.609 - Unspecified intestinal obstruction, unspecified as to partial versus complete obstruction SNOMED: 901076434 (3) Transaminitis ICD Codes: R74.0 - Nonspecific elevation of levels of transaminase and lactic acid dehydrogenase [LDH] SNOMED: 701683081, 228090258 (4) Abdominal pain ICD Codes: R10.9 - Unspecified abdominal pain SNOMED: 08910044 (5) Ulcerative colitis ICD Codes: K51.90 - Ulcerative colitis, unspecified, without complications SNOMED: 67247018 Assessment/Plan: wbc improving abd pain is better minimal discharge in wound dressing cont current care on clear liquid diet and TPN diet advancing orders per surg will hold motility drugs for now Subjective ROS Limited/Unobtainable: Yes Allergies: Coded Allergies: METRONIDAZOLE (Verified Allergy, Mild, 09/18/18) HEADACHE, DIZZINESS Uncoded Allergies: hay fever (Allergy, Unknown, 09/24/16) Objective Last 24 Hour Vital Signs Date Time Temp Pulse Resp B/P (MAP) Pulse Ox O2 Delivery O2 Flow Rate FiO2 12/13/19 08:00 76 17 97 12/13/19 08:00 98.4 76 17 148/90 (109) 97 12/13/19 07:50 Room Air 12/13/19 04:00 98.4 73 17 128/89 (102) 97 12/13/19 04:00 73 17 97 12/13/19 00:00 99.0 72 18 148/73 (98) 97 12/13/19 00:00 72 18 97 12/12/19 21:00 Room Air 12/12/19 20:00 99.1 73 16 153/87 (109) 95 12/12/19 20:00 73 16 95 12/12/19 16:00 79 18 96 12/12/19 16:00 97.7 79 18 144/94 (111) 96 12/12/19 12:00 76 18 96 12/12/19 12:00 98.8 76 18 152/96 (114) 96 Intake and Output 12/12/19 12/13/19 19:00 07:00 Intake Total 1937 ml 1759 ml Output Total 1820 ml 1990 ml Balance 117 ml -231 ml Intake Oral 120 ml IV Total 1937 ml 1639 ml Output Urine Total 1650 ml 1850 ml Other 170 ml 140 ml Laboratory Tests 12/13/19 04:45: White Blood Count 7.8, Red Blood Count 4.21, Hemoglobin 12.8, Hematocrit 37.3, Mean Corpuscular Volume 89, Mean Corpuscular Hemoglobin 30.4, Mean Corpuscular Hemoglobin Concent 34.3, Red Cell Distribution Width 11.4L, Platelet Count 547H , Mean Platelet Volume 6.5, Neutrophils (%) (Auto) 72.6, Lymphocytes (%) (Auto) 12.4L, Monocytes (%) (Auto) 6.6, Eosinophils (%) (Auto) 6.3H, Basophils (%) ( Auto) 2.1H, Sodium Level 136, Potassium Level 3.9, Chloride Level 102, Carbon Dioxide Level 26, Anion Gap 8, Blood Urea Nitrogen 14, Creatinine 0.6, Estimat Glomerular Filtration Rate > 60, Glucose Level 129H, Calcium Level 9.2, Phosphorus Level 3.0, Magnesium Level 2.0, Total Bilirubin 0.9, Aspartate Amino Transf (AST/SGOT) 65H, Alanine Aminotransferase (ALT/SGPT) 138H, Alkaline Phosphatase 215H, Total Protein 7.0, Albumin 2.6L, Globulin 4.4, Albumin/ Globulin Ratio 0.6L Height (Feet): 5 Height (Inches): 7.00 Weight (Pounds): 124 General Appearance: alert EENT: normal ENT inspection Neck: supple Cardiovascular: normal rate Respiratory/Chest: decreased breath sounds Abdomen: soft, hypoactive bowel sounds Extremities: non-tender Clarence El MD Dec 13, 2019 09:00
--- NOTE | 2019-12-13 09:24 | General Progress Note ---
Progress Note Progress Note AVSS Tolerating oxycodone per Dr. Rehman and much less use of EPIC CUPID ANALYST. Still with abdominal pain lower abdomen tolerating clear liquids with gastrostomy to drainage Abdomen soft, wound clean, no drainage or air Urine 3500 Gastrostomy 915 (taking clear liquids) Kock pouch ileo 310 ( increased0 labs all stable except platelets up 547,000 - on Rocephin albumin up 2.6 Imp: Slow improvement in GI function Plan: Continue clear liquid diet, TPN Trial of intermittent plugging of gastrostomy (3:3 protocol) decrease IV fluids Vishnu Cuevas MD Dec 13, 2019 09:24
[2019-12-13] MEDS ORDERED: Naloxone 0.4mg/ml Inj IVP PRN (09:25)
[2019-12-13] MEDS ORDERED: PCA HYDROmorphone 1mg/ml 30 ML IV PRN (09:26)
[2019-12-13] MEDS ORDERED: Rate Change PCA 1 Each MISC PRN (09:30)
[2019-12-13] MEDS ORDERED: NS Irrig 1000ml ONE ×2 (09:35→10:19)
[2019-12-13] MEDS: oxyCODONE 5mg IR tab ORAL PRN ×3 (10:03→21:23)
[2019-12-13 12:00] VITALS: BP_SYST 148; BP_SYST 157; BP_DIAS 90; BP_DIAS 93
--- NOTE | 2019-12-13 14:47 | Infectious Diseases Prog Note ---
Assessment/Plan Assessment/Plan ASSESSMENT AND PLAN: 1. possible e.coli uti, possible streptococcus uti, urinary symptoms, leukocytosis - ceftriaxone - day # 3 - ampicillin started pending f/u urine culture - avoid fluoroquinolones because of drug interaction and potential QT prolongation - leukocytosis resolved - monitor labs 2. The patient has history of small-bowel obstruction, status post release of the bowel obstruction. 3. The patient has history of multiple abdominal surgeries. 4. History of ulcerative colitis. 5. History of proctocolectomy with Kock pouch and history of multiple revisions and bowel obstruction in the past and history of ulcerative colitis. 6. Allergies to metronidazole, hay fever. 7. Social history negative. 8. Family history noncontributory. 9. MAR was noted. 10. Case discussed with RN. 11. Continue treatment per primary consultants. Subjective Constitutional: Denies: fever HEENT: Denies: congestion Respiratory: Denies: shortness of breath Cardiovascular: Denies: chest pain Gastrointestinal/Abdominal: Denies: nausea, vomiting, diarrhea Genitourinary: Reports: dysuria, other - no vitale Psychiatric: Denies: depression Skin: Denies: rash Hematologic: Denies: bleeding Musculoskeletal: Denies: pain Allergies: Coded Allergies: METRONIDAZOLE (Verified Allergy, Mild, 09/18/18) HEADACHE, DIZZINESS Uncoded Allergies: hay fever (Allergy, Unknown, 09/24/16) Objective Vital Signs Last 24 Hour Vital Signs Date Time Temp Pulse Resp B/P (MAP) Pulse Ox O2 Delivery O2 Flow Rate FiO2 12/13/19 12:00 76 17 97 12/13/19 12:00 98.4 78 17 157/93 (114) 97 12/13/19 08:00 76 17 97 12/13/19 08:00 98.4 76 17 148/90 (109) 97 12/13/19 07:50 Room Air 12/13/19 04:00 98.4 73 17 128/89 (102) 97 12/13/19 04:00 73 17 97 12/13/19 00:00 99.0 72 18 148/73 (98) 97 12/13/19 00:00 72 18 97 12/12/19 21:00 Room Air 12/12/19 20:00 99.1 73 16 153/87 (109) 95 12/12/19 20:00 73 16 95 12/12/19 16:00 79 18 96 12/12/19 16:00 97.7 79 18 144/94 (111) 96 Height (Feet): 5 Height (Inches): 7.00 Weight (Pounds): 124 General Appearance: no acute distress HEENT: atraumatic, anicteric, mucous membranes moist Respiratory/Chest: lungs clear, normal breath sounds, no respiratory distress, no accessory muscle use Cardiovascular: normal rate, regular rhythm, no gallop/murmur, no JVD Abdomen: normal bowel sounds, soft, non tender, no organomegaly, non distended Genitourinary: other - n9o fo Extremities: no cyanosis Skin: no rash Neurologic/Psychiatric: product safety head II-XII grossly normal, alert, oriented x 3, responsive Lymphatic: no neck adenopathy Musculoskeletal: no effusion Objective CT abdomen and pelvis: IMPRESSION: Interval abdominal surgery. 2.5 x 3.5 x 11 cm collection of extra fascial subcutaneous air just deep to the skin emil at and below the umbilicus. Conceivable that this is postoperative air, although one would expect that any postsurgical air would have resorbed by now. No definitive enterocutaneous fistula is demonstrated but possibility of such is not excluded. 4.6 x 2.9 x 7.1 cm presacral postsurgical fluid collection. Seroma versus liquefied hematoma. Abscess is not excludable. No evidence of bowel obstruction. Left lower quadrant continent ileostomy with good position of the catheter. Status post subtotal colectomy. Gastrostomy Air in the urinary bladder. This is presumably iatrogenic from recent Vitale catheter placement. Microbiology Date/Time Source Procedure Growth Status 12/09/19 18:46 Blood Blood Culture - Preliminary NO GROWTH AFTER 72 HOURS Resulted 12/08/19 15:00 Other Gram Stain - Final Complete 12/08/19 15:00 Other Wound Culture - Final NO GROWTH Complete 11/27/19 04:44 Nasal Nares Right MRSA Culture - Final NO METHICILLIN RESISTANT STAPH AUREUS... Complete 11/27/19 17:00 Stool VRE Culture - Final NO VANCOMYCIN RESISTANT ENTEROCOCCUS ... Complete 12/11/19 20:48 Urine,Clean Catch Urine Culture - Preliminary Strep Species, Gamma-Hemolytic Resulted Microbiology Date/Time Source Procedure Growth Status 12/11/19 20:48 Urine,Clean Catch Urine Culture - Preliminary Strep Species, Gamma-Hemolytic Resulted Laboratory Tests Test 12/13/19 04:45 White Blood Count 7.8 K/UL (4.8-10.8) Red Blood Count 4.21 M/UL (4.20-5.40) Hemoglobin 12.8 G/DL (12.0-16.0) Hematocrit 37.3 % (37.0-47.0) Mean Corpuscular Volume 89 FL (80-99) Mean Corpuscular Hemoglobin 30.4 PG (27.0-31.0) Mean Corpuscular Hemoglobin Concent 34.3 G/DL (32.0-36.0) Red Cell Distribution Width 11.4 % (11.6-14.8) L Platelet Count 547 K/UL (150-450) H Mean Platelet Volume 6.5 FL (6.5-10.1) Neutrophils (%) (Auto) 72.6 % (45.0-75.0) Lymphocytes (%) (Auto) 12.4 % (20.0-45.0) L Monocytes (%) (Auto) 6.6 % (1.0-10.0) Eosinophils (%) (Auto) 6.3 % (0.0-3.0) H Basophils (%) (Auto) 2.1 % (0.0-2.0) H Sodium Level 136 MMOL/L (136-145) Potassium Level 3.9 MMOL/L (3.5-5.1) Chloride Level 102 MMOL/L (98-107) Carbon Dioxide Level 26 MMOL/L (21-32) Anion Gap 8 mmol/L (5-15) Blood Urea Nitrogen 14 mg/dL (7-18) Creatinine 0.6 MG/DL (0.55-1.30) Estimat Glomerular Filtration Rate > 60 mL/min (>60) Glucose Level 129 MG/DL (74-106) H Calcium Level 9.2 MG/DL (8.5-10.1) Phosphorus Level 3.0 MG/DL (2.5-4.9) Magnesium Level 2.0 MG/DL (1.8-2.4) Total Bilirubin 0.9 MG/DL (0.2-1.0) Aspartate Amino Transf (AST/SGOT) 65 U/L (15-37) H Alanine Aminotransferase (ALT/SGPT) 138 U/L (12-78) H Alkaline Phosphatase 215 U/L (46-116) H Total Protein 7.0 G/DL (6.4-8.2) Albumin 2.6 G/DL (3.4-5.0) L Globulin 4.4 g/dL Albumin/Globulin Ratio 0.6 (1.0-2.7) L Current Medications Medications (Trade) Dose Ordered Sig/[place] Route PRN Reason Start Time Stop Time Status Last Admin Dose Admin Acetaminophen (Tylenol) 1,000 mg Q4H PRN GT temp>100.2 or headache 11/28/19 15:30 12/28/19 15:29 12/13/19 02:54 Acetaminophen/ Butalbital/ Caffeine (Fioricet) 1 tab Q6H PRN ORAL For Headache 11/26/19 18:45 12/26/19 18:44 12/04/19 02:17 Ceftriaxone Sodium 1 gm/ Dextrose 50 ml @ 100 mls/hr Q24H IVPB 12/11/19 18:30 12/18/19 18:29 12/12/19 18:11 Chlorhexidine Gluconate (Mohini-Hex 2%) 1 applic DAILY@2000 TOPIC 11/26/19 20:00 02/24/20 19:59 12/12/19 20:28 Cyclobenzaprine HCl (Flexeril) 10 mg Q6H PRN ORAL Muscle Spasm 12/03/19 10:30 01/02/20 10:29 12/06/19 21:28 Dextrose 1,000 ml @ 0 mls/hr Q24H PRN IV PN interrupted or unavailable 11/30/19 20:00 12/30/19 19:59 Dextrose (Dextrose 50%) 25 ml Q30M PRN IV Hypoglycemia 11/30/19 09:15 02/28/20 09:14 Dextrose (Dextrose 50%) 50 ml Q30M PRN IV Hypoglycemia 11/30/19 09:15 02/28/20 09:14 Diphenhydramine HCl (Benadryl) 25 mg Q4H PRN IVP Itching/Pruritis 11/29/19 09:50 12/29/19 09:49 12/11/19 21:30 Fat Emulsion Intravenous 216 ml/Amino Acids/ Electrolytes/ Dextrose 1,776 ml @ 74 mls/hr Q24H IV 12/01/19 20:00 12/31/19 19:59 12/12/19 20:30 Fluocinonide (Lidex) 1 applic BID PRN TOPIC Itching 12/03/19 10:30 03/02/20 10:29 Hydromorphone HCl 30 ml @ 0 mls/hr Q24H PRN IV For Pain 12/13/19 09:26 12/15/19 09:25 Hydroxyzine HCl (Atarax) 50 mg Q6H PRN ORAL Itching 11/30/19 09:00 12/30/19 08:59 12/03/19 09:24 Insulin Aspart (NovoLOG) Q6HR SUBQ 12/01/19 00:00 02/29/20 00:00 12/07/19 00:03 Lidocaine HCl (Xylocaine Jelly 2%) 1 applic EVERY 2 HOURS PRN TOPIC For Pain 12/12/19 12:30 03/11/20 12:29 12/12/19 18:21 Metoclopramide HCl (Reglan) 10 mg Q6H IVP 12/10/19 15:00 01/09/20 14:59 12/13/19 08:45 Miscellaneous Medication (WET MILLING WHEEL OPERATOR Rate Change) 1 ea DAILY PRN MISC rate change 12/13/19 09:30 12/15/19 09:29 Miscellaneous Medication (WET MILLING WHEEL OPERATOR shift volume) 1 ea Q12HR@0700,1900 MISC 12/13/19 19:00 12/15/19 18:59 Naloxone HCl (Narcan) 0.1 mg Q1M PRN IVP RR<10/min OR SBP<90 mmHg 12/13/19 09:25 12/15/19 09:19 Ondansetron HCl (Zofran) 4 mg Q4H PRN IVP Nausea & Vomiting 11/28/19 15:30 12/28/19 15:29 12/09/19 08:54 Oxycodone HCl (Roxicodone) 5 mg Q3H PRN ORAL Mild Pain (Pain Scale 1-3) 12/12/19 06:30 12/19/19 06:29 12/13/19 10:03 Oxycodone HCl (Roxicodone) 10 mg Q3H PRN ORAL Moderate Breakthru Pain (5-7) 4/3/20 06:30 12/19/19 06:29 12/12/19 21:41 Oxycodone HCl (Roxicodone) 15 mg Q3H PRN ORAL Severe Pain (Pain Scale 7-10) 12/13/19 09:00 12/20/19 08:59 Patient Own Medication (Patient's Own Med) 1 ea 2XW@2100 VAGIN 12/04/19 21:00 01/03/20 20:59 12/11/19 20:23 Patient Own Medication (Patient's Own Med) 1 ea EVERY 12 HOURS BOTH EYES 11/26/19 21:00 12/26/19 20:59 12/13/19 08:45 Phytonadione (Vitamin K) 10 mg ONCE A WEEK SUBQ 11/30/19 20:00 02/28/20 19:59 12/07/19 19:57 Simethicone (Mylicon) 80 mg QID PRN ORAL GAS 12/08/19 18:45 03/07/20 18:44 12/12/19 08:46 Sodium Chloride 1,000 ml @ 50 mls/hr Q20H IV 12/13/19 09:26 01/12/20 09:25 12/13/19 10:07 Hazel De Santiago MD Dec 13, 2019 14:46
[2019-12-13 16:00] VITALS: BP_SYST 148; BP_SYST 166; BP_DIAS 90; BP_DIAS 94
--- NOTE | 2019-12-13 17:30 | NUR ---
NURSE NOTES: reported to Dr. Cuevas regarding pt's high blood pressure. just monitor now.
--- NOTE | 2019-12-13 18:00 | NUR ---
NURSE NOTES: accidentally Ceftriaxone vial was broken by dropping. pulled out extra dose from [facility]
[2019-12-13] MEDS: cefTRIAXone 1 GM in D5W 50 ML IVPB SCH (18:19)
[2019-12-13] MEDS ORDERED: PCA shift volume MISC SCH (19:00)
--- NOTE | 2019-12-13 19:35 | NUR ---
NURSE NOTES: Received report from AURELIO Girard. Pt is awake, lying semi-duarte's; comfortably resting. No signs of acute distress noted. Pt denies any pain at this time. at bedside. AOx4; able to make needs known. Checked IV site, lines, and rates; patent and running. Dressing dry and intact. Ileo and gtube; patent and draining. No erythema, bleeding, or infiltration noted. Bed at lowest position. Brakes on. Siderails up x2. Call light within reach. Will continue to monitor.
--- NOTE | 2019-12-13 19:42 | NUR ---
HAND-OFF: Report given to Abiola. pt well tolerated with 3:3 GT protocol and stable condition
[2019-12-13 20:00] VITALS: BP 151/86
[2019-12-13] MEDS: Dyna-Hex 2% Top Sol 2oz TOPIC SCH (21:28)
[2019-12-13] MEDS: Fat Emulsion Iv 20% 216 ML in Tpn 1,560 ML IV SCH (21:30)
[2019-12-13] MEDS: DiphenhydrAMINE 50mg/ml Inj IVP PRN (23:06)
[2019-12-14] VITALS: BP 154/92
[2019-12-14] MEDS: Cyclobenzaprine 10mg Tab ORAL PRN (03:39)
[2019-12-14] MEDS: Metoclopramide 10mg/2ml Inj IVP SCH ×4 (03:39→20:39)
[2019-12-14] MEDS: Simethicone 80mg tab ORAL PRN (03:52)
[2019-12-14 04:00] VITALS: BP 141/85
[2019-12-14] MEDS: NovoLOG Insulin Flexpen SUBQ SCH ×3 (05:07→17:43)
[2019-12-14 05:50] LABS: BASOPHILS % (AUTO) 1.8 % (0.0-2.0); EOSINOPHILS % (AUTO) 5.9 % (0.0-3.0); HEMATOCRIT 35.9 % (37.0-47.0); HEMOGLOBIN 12.5 G/DL (12.0-16.0); LYMPHOCYTES % (AUTO) 14.3 % (20.0-45.0); MEAN CORPUSCULAR VOLUME 89 FL (80-99); PLATELET COUNT 489 K/UL (150-450); RED BLOOD COUNT 4.03 M/UL (4.20-5.40); RED CELL DISTRIBUTION WIDTH 11.3 % (11.6-14.8); WHITE BLOOD COUNT 7.5 K/UL (4.8-10.8)
[2019-12-14 05:58] LABS: ALANINE AMINOTRANSFERASE 129 U/L (12-78); ALBUMIN 2.6 G/DL (3.4-5.0); ALBUMIN/GLOBULIN RATIO 0.6 (1.0-2.7); ALKALINE PHOSPHATASE 210 U/L (46-116); ANION GAP 9 mmol/L (5-15); ASPARTATE AMINO TRANSFERASE 56 U/L (15-37); BILIRUBIN,TOTAL 0.6 MG/DL (0.2-1.0); BLOOD UREA NITROGEN 14 mg/dL (7-18); CARBON DIOXIDE 27 MMOL/L (21-32); CHLORIDE 103 MMOL/L (98-107); CREATININE 0.6 MG/DL (0.55-1.30); POTASSIUM 3.9 MMOL/L (3.5-5.1); SODIUM 139 MMOL/L (136-145)
--- NOTE | 2019-12-14 07:30 | NUR ---
HAND-OFF: Report given to AURELIO Shirley. Pt is awake and in stable condition. Plan of care endorsed.
--- NOTE | 2019-12-14 07:45 | NUR ---
NURSE NOTES: Received report from AURELIO Culver. Pt is awake in comfortably resting. No signs of acute distress noted. Pt denies any pain at this time. at bedside. AOx4; able to make needs known. Checked IV site, patent and running. Dressing C/D/I. Ileo and g-tube patent and draining. Bed at lowest position. Brakes on. Siderails up x2. Call light within reach. Will continue to monitor.
[2019-12-14 08:00] VITALS: BP 146/90
[2019-12-14] MEDS ORDERED: DiphenhydrAMINE 25mg/10ml Elixir GT PRN (08:15)
--- NOTE | 2019-12-14 08:15 | NUR ---
NURSE NOTES: Accidently mixed Rocephin 1g with NS 50ml instead of D5 50ml. Called Pharmacy and made aware. Received new order Rocephin with NS 50ml only once at 1800 by Pharmacy. administer Rocephin 1g with NS 50ml, Non administer Rocephin 1g with D5 50ml due to Wrong mixture.
[2019-12-14] MEDS: oxyCODONE 5mg IR tab ORAL PRN ×3 (08:25→16:20)
--- NOTE | 2019-12-14 09:30 | General Progress Note ---
Progress Note Progress Note AVSS Did well with clear liquids and gastrostomy 3:3 protocol. At hs gastrostomy placed back to continuous drainage. c/o nightmares due to oxycodone? ELECTRIC METER INSPECTOR has been discontinues per Dr. Rehman On Levaquin for UTI enterococcus faecalis per ID Abdomen soft, still firmness RLQ, 1/3 emil removed, open wound clean and granulating Urine 3000 Gastrostomy overnight 390 Kock pouch ileo 490 (increased) Platetets down 489,000 BUN 14 Cr 0.6 LFTs decreased albumin still 2.6 Imp: gradual improvement Plan: continue TPN, gastrostomy 3:3 , Kock pouch to continuous drainage Full liquid diet Vishnu Cuevas MD Dec 14, 2019 09:30
--- NOTE | 2019-12-14 10:18 | General Progress Note ---
Assessment/Plan Problem List: (1) MALFUNCTIONING JASMINE POUCH (2) Small bowel obstruction ICD Codes: K56.609 - Unspecified intestinal obstruction, unspecified as to partial versus complete obstruction SNOMED: 295219063 (3) Transaminitis ICD Codes: R74.0 - Nonspecific elevation of levels of transaminase and lactic acid dehydrogenase [LDH] SNOMED: 268199874, 632743886 (4) Abdominal pain ICD Codes: R10.9 - Unspecified abdominal pain SNOMED: 69950311 (5) Ulcerative colitis ICD Codes: K51.90 - Ulcerative colitis, unspecified, without complications SNOMED: 08802214 Assessment/Plan: wbc improving abd pain is better minimal discharge in wound dressing cont current care on full liquid diet and TPN add ensure + diet advancing orders per surg will hold motility drugs for now Subjective ROS Limited/Unobtainable: Yes Allergies: Coded Allergies: METRONIDAZOLE (Verified Allergy, Mild, 09/18/18) HEADACHE, DIZZINESS Uncoded Allergies: hay fever (Allergy, Unknown, 09/24/16) Objective Last 24 Hour Vital Signs Date Time Temp Pulse Resp B/P (MAP) Pulse Ox O2 Delivery O2 Flow Rate FiO2 12/14/19 04:00 98.6 74 18 141/85 (103) 97 12/14/19 00:00 99.3 72 20 154/92 (112) 95 12/13/19 21:00 Room Air 12/13/19 20:00 73 19 98 12/13/19 20:00 98.1 73 18 151/86 (107) 96 12/13/19 16:00 76 17 97 12/13/19 16:00 98.2 75 17 166/94 (118) 97 12/13/19 12:00 76 17 97 12/13/19 12:00 98.4 78 17 157/93 (114) 97 Intake and Output 12/13/19 12/14/19 19:00 07:00 Intake Total 1070 ml 300 ml Output Total 1570 ml 2310 ml Balance -500 ml -2010 ml Intake Oral 1070 ml 300 ml Output Urine Total 1300 ml 1700 ml Other 270 ml 610 ml Laboratory Tests 12/14/19 05:00: White Blood Count 7.5, Red Blood Count 4.03L, Hemoglobin 12.5, Hematocrit 35.9L , Mean Corpuscular Volume 89, Mean Corpuscular Hemoglobin 30.9, Mean Corpuscular Hemoglobin Concent 34.7, Red Cell Distribution Width 11.3L, Platelet Count 489H, Mean Platelet Volume 6.9, Neutrophils (%) (Auto) 69.0, Lymphocytes (%) (Auto) 14.3L, Monocytes (%) (Auto) 9.0, Eosinophils (%) (Auto) 5.9H, Basophils (%) (Auto) 1.8, Sodium Level 139, Potassium Level 3.9, Chloride Level 103, Carbon Dioxide Level 27, Anion Gap 9, Blood Urea Nitrogen 14, Creatinine 0.6, Estimat Glomerular Filtration Rate > 60, Glucose Level 124H, Calcium Level 9.0, Total Bilirubin 0.6, Aspartate Amino Transf (AST/SGOT) 56H, Alanine Aminotransferase (ALT/SGPT) 129H, Alkaline Phosphatase 210H, Total Protein 6.9, Albumin 2.6L, Globulin 4.3, Albumin/Globulin Ratio 0.6L Height (Feet): 5 Height (Inches): 7.00 Weight (Pounds): 124 General Appearance: alert EENT: PERRL/EOMI Neck: supple Cardiovascular: normal rate Respiratory/Chest: decreased breath sounds Abdomen: normal bowel sounds, non tender, soft Extremities: non-tender Clarence El MD Dec 14, 2019 10:18
[2019-12-14 12:00] VITALS: BP 143/83
[2019-12-14 16:00] VITALS: BP 131/84
[2019-12-14] MEDS: cefTRIAXone 1 GM in D5W 50 ML IVPB SCH (18:06)
[2019-12-14] MEDS ORDERED: cefTRIAXone 1 GM in NS 55 ML IVPB SCH (18:30)
--- NOTE | 2019-12-14 19:00 | NUR ---
NURSE NOTES: Received Report from AURELIO Shirley , pt is A/O x4, breaths even regular and unlabored on RA. Pt c/o abd pain 12/18 , will provide medication for pain as ordered . Ileostomy on L lower ABD, and G tube on L upper ABD, dressing clean intact. Both G tube and Ileo on continuous drain and Q3 flush but GT is on 3:3 protocol for plugging during day. Pt has a CLARISSE picc line with i.v fluids running, patent and asymptomatic dressing clean intact. Family by the bed side . Bed in low locked position and call light with in reach, will continue with plan of care
--- NOTE | 2019-12-14 19:39 | NUR ---
HAND-OFF: Report given to AURELIO Xiao. Made round with incoming nurse.
[2019-12-14 20:00] VITALS: BP 129/78
[2019-12-14] MEDS: Dyna-Hex 2% Top Sol 2oz TOPIC SCH (20:38)
[2019-12-14] MEDS: Phytonadione 10 mg/mL 1ml amp SUBQ SCH (20:39)
[2019-12-14] MEDS: Fat Emulsion Iv 20% 216 ML in Tpn 1,560 ML IV SCH (20:40)
[2019-12-14] MEDS: Hydromorphone 0.5mg/0.5ml inj IVP PRN (21:12)
[2019-12-15] VITALS: BP 142/87
[2019-12-15] MEDS: Simethicone 80mg tab ORAL PRN (00:28)
[2019-12-15] MEDS: Hydromorphone 0.5mg/0.5ml inj IVP PRN (00:28)
[2019-12-15] MEDS: Metoclopramide 10mg/2ml Inj IVP SCH ×4 (03:51→21:37)
[2019-12-15 04:00] VITALS: BP 132/85
[2019-12-15] MEDS: NovoLOG Insulin Flexpen SUBQ SCH ×4 (05:44→18:00)
[2019-12-15 06:37] LABS: BASOPHILS % (AUTO) 1.7 % (0.0-2.0); EOSINOPHILS % (AUTO) 9.4 % (0.0-3.0); HEMATOCRIT 35.8 % (37.0-47.0); HEMOGLOBIN 12.4 G/DL (12.0-16.0); LYMPHOCYTES % (AUTO) 17.3 % (20.0-45.0); MEAN CORPUSCULAR VOLUME 89 FL (80-99); MONOCYTES % (AUTO) 8.9 % (1.0-10.0); NEUTROPHILS % (AUTO) 62.6 % (45.0-75.0); PLATELET COUNT 443 K/UL (150-450); RED BLOOD COUNT 4.04 M/UL (4.20-5.40); RED CELL DISTRIBUTION WIDTH 11.5 % (11.6-14.8); WHITE BLOOD COUNT 7.5 K/UL (4.8-10.8)
[2019-12-15 07:30] LABS: ALANINE AMINOTRANSFERASE 123 U/L (12-78); ALBUMIN 2.6 G/DL (3.4-5.0); ALBUMIN/GLOBULIN RATIO 0.6 (1.0-2.7); ALKALINE PHOSPHATASE 197 U/L (46-116); ANION GAP 8 mmol/L (5-15); ASPARTATE AMINO TRANSFERASE 45 U/L (15-37); BILIRUBIN,TOTAL 0.4 MG/DL (0.2-1.0); BLOOD UREA NITROGEN 18 mg/dL (7-18); CALCIUM 8.8 MG/DL (8.5-10.1); CARBON DIOXIDE 26 MMOL/L (21-32); CHLORIDE 103 MMOL/L (98-107); CREATININE 0.6 MG/DL (0.55-1.30); SODIUM 137 MMOL/L (136-145)
--- NOTE | 2019-12-15 07:48 | NUR ---
NURSE NOTES: Patient is in bed awake and able to verbalize needs. Stable. C/O 4/10 pain, will administer pain medication as ordered. PICC running IVF and TPN as ordered. GT and ileo to drainage bag, will flush q3h and monitor output. Will follow gt 3:3 protocol as tolerated. Surgical dressing c/d/i. Patient is in bed in locked and lowest position with call light within reach. All needs met at this time. Will continue to monitor.
--- NOTE | 2019-12-15 07:48 | NUR ---
HAND-OFF: Report given to Jennie CAREY.
[2019-12-15 08:00] VITALS: BP 151/94
[2019-12-15] MEDS: oxyCODONE 5mg IR tab ORAL PRN ×4 (08:24→17:23)
--- NOTE | 2019-12-15 09:36 | General Progress Note ---
Assessment/Plan Problem List: (1) MALFUNCTIONING JASMINE POUCH (2) Small bowel obstruction ICD Codes: K56.609 - Unspecified intestinal obstruction, unspecified as to partial versus complete obstruction SNOMED: 717120580 (3) Transaminitis ICD Codes: R74.0 - Nonspecific elevation of levels of transaminase and lactic acid dehydrogenase [LDH] SNOMED: 659811152, 794392108 (4) Abdominal pain ICD Codes: R10.9 - Unspecified abdominal pain SNOMED: 80321989 (5) Ulcerative colitis ICD Codes: K51.90 - Ulcerative colitis, unspecified, without complications SNOMED: 06027572 Assessment/Plan: cont current care on full liquid diet and TPN on Ensure + on reglan IV will add Motegrity monitor GT and ileostomy drainage Subjective ROS Limited/Unobtainable: Yes Allergies: Coded Allergies: METRONIDAZOLE (Verified Allergy, Mild, 09/18/18) HEADACHE, DIZZINESS Uncoded Allergies: hay fever (Allergy, Unknown, 09/24/16) Objective Last 24 Hour Vital Signs Date Time Temp Pulse Resp B/P (MAP) Pulse Ox O2 Delivery O2 Flow Rate FiO2 12/15/19 04:00 98.7 71 16 132/85 (101) 97 12/15/19 00:00 98.2 74 15 142/87 (105) 97 12/14/19 21:00 Room Air 12/14/19 20:00 98.5 75 16 129/78 (95) 97 12/14/19 16:00 99.4 80 18 131/84 (100) 98 12/14/19 12:00 97.6 76 18 143/83 (103) 97 Intake and Output 12/14/19 12/15/19 19:00 07:00 Intake Total 1300 ml 474 ml Output Total 1570 ml 1620 ml Balance -270 ml -1146 ml Intake Oral 1300 ml 474 ml Output Urine Total 850 ml 1400 ml Other 720 ml 220 ml Laboratory Tests 12/15/19 04:50: White Blood Count 7.5, Red Blood Count 4.04L, Hemoglobin 12.4, Hematocrit 35.8L , Mean Corpuscular Volume 89, Mean Corpuscular Hemoglobin 30.7, Mean Corpuscular Hemoglobin Concent 34.7, Red Cell Distribution Width 11.5L, Platelet Count 443, Mean Platelet Volume 7.0, Neutrophils (%) (Auto) 62.6, Lymphocytes (%) (Auto) 17.3L, Monocytes (%) (Auto) 8.9, Eosinophils (%) (Auto) 9.4H, Basophils (%) (Auto) 1.7, Sodium Level 137, Potassium Level 4.0, Chloride Level 103, Carbon Dioxide Level 26, Anion Gap 8, Blood Urea Nitrogen 18, Creatinine 0.6, Estimat Glomerular Filtration Rate > 60, Glucose Level 122H, Calcium Level 8.8, Total Bilirubin 0.4, Aspartate Amino Transf (AST/SGOT) 45H, Alanine Aminotransferase (ALT/SGPT) 123H, Alkaline Phosphatase 197H, Total Protein 6.7, Albumin 2.6L, Globulin 4.1, Albumin/Globulin Ratio 0.6L Height (Feet): 5 Height (Inches): 7.00 Weight (Pounds): 124 General Appearance: no apparent distress EENT: normal ENT inspection Neck: supple Cardiovascular: normal rate Respiratory/Chest: decreased breath sounds Abdomen: soft, other - GT and ileostomy in place Extremities: non-tender Clarence El MD Dec 15, 2019 09:36
--- NOTE | 2019-12-15 10:05 | General Progress Note ---
Progress Note Progress Note AVSS Still with abdominal pain "feels inflamed" tolerated 1775 po full liquids +clear liquids and gastrostomy 3:3. On Levaquin Abdomen non-tender, mild distention and firmness RlQ 2 open wounds lower portion of incision are clean Urine 2250 Gastrostomy only 370cc Kock pouch ileo 820cc - much increased Platelets down 443,000 LFTs down Albumin still very low 2.6 Imp: Improved Kock pouch output but continued abd pain requiring oxycodone + dilaudid at night IV Plan; Continue current regimen: gastrostomy 3:3, TPN, full liquids, continuous drainage of Kock pouch May need another CT scan abd+pelvis Vishnu Cuevas MD Dec 15, 2019 10:05
--- NOTE | 2019-12-15 10:10 | NUR ---
NURSE NOTES:SPOKE TO JOCELINE) RE:PROVIDE FULL LIQUID MENU TO PT.
--- NOTE | 2019-12-15 11:39 | NUR ---
CASE MANAGEMENT:REVIEW 12/13/19 SI: S/P RELEASE OF SMALL BOWEL OBSTRUCTION 98.4 76 17 157/93 97% ON RA PLT 547 BG 129 AST/ALT 56/138 ALKP 215 IS: IVF@75/HR TPN/IL @74/HR AMPICILLIN PO Q6HR HYDROXYZINE Q6HR/PRN KATHIE-HEX 2% TP QD IV REGLAN Q6HRS VIT K SQ Q WEEK \: MED/SURG STATUS 3 [facility] DCP: HOME WHEN STABLE PLAN: Continue clear liquid diet, TPN Trial of intermittent plugging of gastrostomy (3:3 protocol) decrease IV fluids CASE MANAGEMENT:REVIEW 12/14/19 SI: S/P RELEASE OF SMALL BOWEL OBSTRUCTION 97.6 85 18 146/90 97% ON RA PLT 489 BG 124 AST/ALT 56/129 ALKP 210 IS: IV ROCEPHIN X1 IVF@75/HR TPN/IL @74/HR AMPICILLIN PO Q6HR HYDROXYZINE Q6HR/PRN KATHIE-HEX 2% TP QD IV REGLAN Q6HRS VIT K SQ Q WEEK \: MED/SURG STATUS 3 [facility] DCP: HOME WHEN STABLE PLAN: continue TPN, gastrostomy 3:3 , Kock pouch to continuous drainage Full liquid diet CASE MANAGEMENT:REVIEW 12/15/19 SI: S/P RELEASE OF SMALL BOWEL OBSTRUCTION 99.1 71 18 151/91 97% ON RA BG 122 AST/ALT 45/123 ALKP 197 IS: IV ROCEPHIN X1 IVF@75/HR TPN/IL @74/HR AMPICILLIN PO Q6HR HYDROXYZINE Q6HR/PRN KATHIE-HEX 2% TP QD IV REGLAN Q6HRS VIT K SQ Q WEEK \: MED/SURG STATUS 3 [facility] DCP: HOME WHEN STABLE PLAN: Continue current regimen: gastrostomy 3:3, TPN, full liquids, continuous drainage of Kock pouch May need another CT scan abd+pelvis
[2019-12-15 12:00] VITALS: BP 151/91
--- NOTE | 2019-12-15 12:10 | NUR ---
NURSE NOTES: Patient c/o 6/10 abdominal pain not relieved by oxycodone 10mg. Dr. Rehman paged, new orders to d/c Oxycodone 5mg read back and carried out, and will continue to offer patient oxycodone 10mg throughout shift.
--- NOTE | 2019-12-15 14:08 | NUR ---
*-*INSURANCE*-* ALL CLINICALS AND REVIEWS FAXED TO: ELZBIETA Albert/[facility] RE[facility]#[id number] PH: [phone] FAX: [phone]
[2019-12-15] MEDS ORDERED: NS Irrig 1000ml ONE (14:21)
[2019-12-15 16:00] VITALS: BP 163/93
[2019-12-15 16:05] LABS: APPEARANCE,URINE CLEAR; BILIRUBIN, URINE NEGATIVE (NEGATIVE); COLOR,URINE PALE YELLOW; GLUCOSE, URINE (UA) NEGATIVE (NEGATIVE); KETONES,URINE NEGATIVE (NEGATIVE); LEUKOCYTE ESTERASE ,URINE NEGATIVE (NEGATIVE); NITRITE,URINE NEGATIVE (NEGATIVE); PH,URINE 7 (4.5-8.0); PROTEIN,URINE NEGATIVE (NEGATIVE); UROBILINOGEN,URINE NORMAL MG/DL (0.0-1.0)
[2019-12-15] MEDS: cefTRIAXone 1 GM in D5W 50 ML IVPB SCH (18:53)
--- NOTE | 2019-12-15 19:06 | NUR ---
NURSE NOTES: true ileo: 255cc brown liquid output. true gt: 420cc output . UO: 2300cc daniel output. Patient c/o bladder cramping x1, no new complaints, UA resulted. Patient ambulated x3 independently. Dressing changed as ordered.
--- NOTE | 2019-12-15 19:25 | Infectious Diseases Prog Note ---
Assessment/Plan Assessment/Plan ASSESSMENT AND PLAN: 1. possible e.coli uti, possible streptococcus uti, urinary symptoms, leukocytosis - ceftriaxone - day # 5/7 - ampicillin - day # 3/7 - leukocytosis resolved - monitor labs - clinically stable 2. The patient has history of small-bowel obstruction, status post release of the bowel obstruction. 3. The patient has history of multiple abdominal surgeries. 4. History of ulcerative colitis. 5. History of proctocolectomy with Kock pouch and history of multiple revisions and bowel obstruction in the past and history of ulcerative colitis. 6. Allergies to metronidazole, hay fever. 7. Social history negative. 8. Family history noncontributory. 9. MAR was noted. 10. Case discussed with RN. 11. Continue treatment per primary consultants. Subjective Constitutional: Reports: fatigue; Denies: fever HEENT: Denies: congestion Respiratory: Denies: shortness of breath Cardiovascular: Denies: chest pain Gastrointestinal/Abdominal: Denies: nausea, vomiting, diarrhea Genitourinary: Reports: other - no vitale Neurologic: Denies: headache Psychiatric: Denies: depression Skin: Denies: rash Hematologic: Denies: bleeding Musculoskeletal: Denies: pain Allergies: Coded Allergies: METRONIDAZOLE (Verified Allergy, Mild, 09/18/18) HEADACHE, DIZZINESS Uncoded Allergies: hay fever (Allergy, Unknown, 09/24/16) Objective Vital Signs Last 24 Hour Vital Signs Date Time Temp Pulse Resp B/P (MAP) Pulse Ox O2 Delivery O2 Flow Rate FiO2 12/15/19 16:00 98.0 76 18 163/93 (116) 97 12/15/19 12:00 99.1 71 18 151/91 (111) 97 12/15/19 09:00 Room Air 12/15/19 08:00 97.8 81 18 151/94 (113) 96 12/15/19 04:00 98.7 71 16 132/85 (101) 97 12/15/19 00:00 98.2 74 15 142/87 (105) 97 12/14/19 21:00 Room Air 12/14/19 20:00 98.5 75 16 129/78 (95) 97 Height (Feet): 5 Height (Inches): 7.00 Weight (Pounds): 124 General Appearance: no acute distress HEENT: normocephalic, atraumatic, anicteric, mucous membranes moist Respiratory/Chest: lungs clear, normal breath sounds, no respiratory distress, no accessory muscle use Cardiovascular: normal rate, regular rhythm, no gallop/murmur, no JVD Abdomen: normal bowel sounds, soft, non tender, no organomegaly, non distended Genitourinary: other - no vitale Extremities: no cyanosis Skin: no rash Neurologic/Psychiatric: strategy planning consultant II-XII grossly normal, alert, oriented x 3, responsive Lymphatic: no neck adenopathy Musculoskeletal: no effusion Objective CT abdomen and pelvis: IMPRESSION: Interval abdominal surgery. 2.5 x 3.5 x 11 cm collection of extra fascial subcutaneous air just deep to the skin emil at and below the umbilicus. Conceivable that this is postoperative air, although one would expect that any postsurgical air would have resorbed by now. No definitive enterocutaneous fistula is demonstrated but possibility of such is not excluded. 4.6 x 2.9 x 7.1 cm presacral postsurgical fluid collection. Seroma versus liquefied hematoma. Abscess is not excludable. No evidence of bowel obstruction. Left lower quadrant continent ileostomy with good position of the catheter. Status post subtotal colectomy. Gastrostomy Air in the urinary bladder. This is presumably iatrogenic from recent Vitale catheter placement. Microbiology Date/Time Source Procedure Growth Status 12/09/19 18:46 Blood Blood Culture - Final NO GROWTH AFTER 5 DAYS Complete 12/08/19 15:00 Other Gram Stain - Final Complete 12/08/19 15:00 Other Wound Culture - Final NO GROWTH Complete 11/27/19 04:44 Nasal Nares Right MRSA Culture - Final NO METHICILLIN RESISTANT STAPH AUREUS... Complete 11/27/19 17:00 Stool VRE Culture - Final NO VANCOMYCIN RESISTANT ENTEROCOCCUS ... Complete 12/11/19 20:48 Urine,Clean Catch Urine Culture - Final Enterococcus Faecalis Complete Laboratory Tests Test 12/15/19 04:50 12/15/19 15:30 White Blood Count 7.5 K/UL (4.8-10.8) Red Blood Count 4.04 M/UL (4.20-5.40) L Hemoglobin 12.4 G/DL (12.0-16.0) Hematocrit 35.8 % (37.0-47.0) L Mean Corpuscular Volume 89 FL (80-99) Mean Corpuscular Hemoglobin 30.7 PG (27.0-31.0) Mean Corpuscular Hemoglobin Concent 34.7 G/DL (32.0-36.0) Red Cell Distribution Width 11.5 % (11.6-14.8) L Platelet Count 443 K/UL (150-450) Mean Platelet Volume 7.0 FL (6.5-10.1) Neutrophils (%) (Auto) 62.6 % (45.0-75.0) Lymphocytes (%) (Auto) 17.3 % (20.0-45.0) L Monocytes (%) (Auto) 8.9 % (1.0-10.0) Eosinophils (%) (Auto) 9.4 % (0.0-3.0) H Basophils (%) (Auto) 1.7 % (0.0-2.0) Sodium Level 137 MMOL/L (136-145) Potassium Level 4.0 MMOL/L (3.5-5.1) Chloride Level 103 MMOL/L (98-107) Carbon Dioxide Level 26 MMOL/L (21-32) Anion Gap 8 mmol/L (5-15) Blood Urea Nitrogen 18 mg/dL (7-18) Creatinine 0.6 MG/DL (0.55-1.30) Estimat Glomerular Filtration Rate > 60 mL/min (>60) Glucose Level 122 MG/DL (74-106) H Calcium Level 8.8 MG/DL (8.5-10.1) Total Bilirubin 0.4 MG/DL (0.2-1.0) Aspartate Amino Transf (AST/SGOT) 45 U/L (15-37) H Alanine Aminotransferase (ALT/SGPT) 123 U/L (12-78) H Alkaline Phosphatase 197 U/L (46-116) H Total Protein 6.7 G/DL (6.4-8.2) Albumin 2.6 G/DL (3.4-5.0) L Globulin 4.1 g/dL Albumin/Globulin Ratio 0.6 (1.0-2.7) L Urine Color Pale yellow Urine Appearance Clear Urine pH 7 (4.5-8.0) Urine Specific [place] 1.005 (1.005-1.035) Urine Protein Negative (NEGATIVE) Urine Glucose (UA) Negative (NEGATIVE) Urine Ketones Negative (NEGATIVE) Urine Blood Negative (NEGATIVE) Urine Nitrite Negative (NEGATIVE) Urine Bilirubin Negative (NEGATIVE) Urine Urobilinogen Normal MG/DL (0.0-1.0) Urine Leukocyte Esterase Negative (NEGATIVE) Urine RBC 0-2 /HPF (0 - 2) Urine WBC 0-2 /HPF (0 - 2) Urine Squamous Epithelial Cells Few /LPF (NONE/OCC) Urine Bacteria Few /HPF (NONE) Current Medications Medications (Trade) Dose Ordered Sig/[place] Route PRN Reason Start Time Stop Time Status Last Admin Dose Admin Acetaminophen (Tylenol) 1,000 mg Q4H PRN GT temp>100.2 or headache 11/28/19 15:30 12/28/19 15:29 12/13/19 02:54 Acetaminophen/ Butalbital/ Caffeine (Fioricet) 1 tab Q6H PRN ORAL For Headache 11/26/19 18:45 12/26/19 18:44 12/04/19 02:17 Ampicillin (Ampicillin) 500 mg EVERY 6 HOURS ORAL 12/13/19 18:00 12/20/19 17:59 12/15/19 17:23 Ceftriaxone Sodium 1 gm/ Dextrose 50 ml @ 100 mls/hr Q24H IVPB 12/11/19 18:30 12/18/19 18:29 12/15/19 18:53 Chlorhexidine Gluconate (Mohini-Hex 2%) 1 applic DAILY@2000 TOPIC 11/26/19 20:00 02/24/20 19:59 12/14/19 20:38 Cyclobenzaprine HCl (Flexeril) 10 mg Q6H PRN ORAL Muscle Spasm 12/03/19 10:30 01/02/20 10:29 12/14/19 03:39 Dextrose 1,000 ml @ 0 mls/hr Q24H PRN IV PN interrupted or unavailable 11/30/19 20:00 12/30/19 19:59 Dextrose (Dextrose 50%) 25 ml Q30M PRN IV Hypoglycemia 11/30/19 09:15 02/28/20 09:14 Dextrose (Dextrose 50%) 50 ml Q30M PRN IV Hypoglycemia 11/30/19 09:15 02/28/20 09:14 Diphenhydramine HCl (Benadryl) 25 mg Q4H PRN IVP Itching/Pruritis 11/29/19 09:50 12/29/19 09:49 12/13/19 23:06 Fat Emulsion Intravenous 216 ml/Amino Acids/ Electrolytes/ Dextrose 1,776 ml @ 74 mls/hr Q24H IV 12/01/19 20:00 12/31/19 19:59 12/14/19 20:40 Fluocinonide (Lidex) 1 applic BID PRN TOPIC Itching 12/03/19 10:30 03/02/20 10:29 Hydromorphone HCl (Dilaudid) 0.5 mg Q3H PRN IVP night-time pain 12/14/19 11:18 12/21/19 11:17 12/15/19 00:28 Hydroxyzine HCl (Atarax) 50 mg Q6H PRN ORAL Itching 11/30/19 09:00 12/30/19 08:59 12/03/19 09:24 Insulin Aspart (NovoLOG) Q6HR SUBQ 12/01/19 00:00 02/29/20 00:00 12/07/19 00:03 Lidocaine HCl (Xylocaine Jelly 2%) 1 applic EVERY 2 HOURS PRN TOPIC For Pain 12/12/19 12:30 03/11/20 12:29 12/12/19 18:21 Metoclopramide HCl (Reglan) 10 mg Q6H IVP 12/10/19 15:00 01/09/20 14:59 12/15/19 15:16 Ondansetron HCl (Zofran) 4 mg Q4H PRN IVP Nausea & Vomiting 11/28/19 15:30 12/28/19 15:29 12/09/19 08:54 Oxycodone HCl (Roxicodone) 10 mg Q3H PRN ORAL Moderate Breakthru Pain (5-7) 12/12/19 06:30 12/19/19 06:29 12/15/19 17:23 Patient Own Medication (Patient's Own Med) 1 ea 2XW@2100 VAGIN 12/04/19 21:00 01/03/20 20:59 12/11/19 20:23 Patient Own Medication (Patient's Own Med) 1 ea EVERY 12 HOURS BOTH EYES 11/26/19 21:00 12/26/19 20:59 12/15/19 08:25 Phytonadione (Vitamin K) 10 mg ONCE A WEEK SUBQ 11/30/19 20:00 02/28/20 19:59 12/14/19 20:39 Simethicone (Mylicon) 80 mg QID PRN ORAL GAS 12/08/19 18:45 03/07/20 18:44 12/15/19 00:28 Sodium Chloride 1,000 ml @ 20 mls/hr Q24H IV 12/15/19 11:00 01/14/20 10:59 12/15/19 11:22 Hazel De Santiago MD Dec 15, 2019 19:25
--- NOTE | 2019-12-15 19:46 | NUR ---
HAND-OFF: Report given to Yaa CAREY. patient is stable.
--- NOTE | 2019-12-15 19:50 | NUR ---
NURSE NOTES: Received report from AURELIO Schneider. Patient awake, alert, no distress noted. Dressing dry and intact. GT and ileo draining well. PICC intact and patent, infusing TPN at 74 cc/hr
--- NOTE | 2019-12-15 19:55 | NUR ---
NURSE NOTES: BEd in low position, locked, side rails up x2, call light within reach. Will continue to monitor.
[2019-12-15 20:00] VITALS: BP 136/83
[2019-12-15] MEDS: Dyna-Hex 2% Top Sol 2oz TOPIC SCH (20:07)
[2019-12-15] MEDS: Fat Emulsion Iv 20% 216 ML in Tpn 1,560 ML IV SCH (20:09)
[2019-12-15] MEDS: DiphenhydrAMINE 50mg/ml Inj IVP PRN (21:37)
[2019-12-15] MEDS: ESTRADIOL VAGIN SCH (21:38)
[2019-12-16] VITALS: BP 130/66
--- NOTE | 2019-12-16 00:19 | NUR ---
NURSE NOTES: Given PO med, GT clamped x 30 min after med.
[2019-12-16] MEDS: Metoclopramide 10mg/2ml Inj IVP SCH ×4 (03:01→20:07)
[2019-12-16 05:00] VITALS: BP 128/81
[2019-12-16] MEDS: oxyCODONE 5mg IR tab ORAL PRN ×3 (05:27→15:46)
[2019-12-16] MEDS: NovoLOG Insulin Flexpen SUBQ SCH ×5 (06:00→23:48)
--- NOTE | 2019-12-16 06:29 | NUR ---
NURSE NOTES: Patient feeling well, ambulating in hallway without assistance. Steady gait, no dizziness.
[2019-12-16 06:38] LABS: BASOPHILS % (AUTO) 1.6 % (0.0-2.0); HEMATOCRIT 37.4 % (37.0-47.0); HEMOGLOBIN 12.8 G/DL (12.0-16.0); LYMPHOCYTES % (AUTO) 14.7 % (20.0-45.0); MEAN CORPUSCULAR VOLUME 89 FL (80-99); MONOCYTES % (AUTO) 8.8 % (1.0-10.0); PLATELET COUNT 422 K/UL (150-450); RED BLOOD COUNT 4.21 M/UL (4.20-5.40); RED CELL DISTRIBUTION WIDTH 11.5 % (11.6-14.8); WHITE BLOOD COUNT 7.9 K/UL (4.8-10.8)
[2019-12-16 07:01] LABS: ALANINE AMINOTRANSFERASE 101 U/L (12-78); ALBUMIN 2.6 G/DL (3.4-5.0); ALBUMIN/GLOBULIN RATIO 0.6 (1.0-2.7); ALKALINE PHOSPHATASE 177 U/L (46-116); ANION GAP 9 mmol/L (5-15); ASPARTATE AMINO TRANSFERASE 28 U/L (15-37); BILIRUBIN,TOTAL 0.4 MG/DL (0.2-1.0); BLOOD UREA NITROGEN 16 mg/dL (7-18); CALCIUM 9.3 MG/DL (8.5-10.1); CARBON DIOXIDE 28 MMOL/L (21-32); CHLORIDE 102 MMOL/L (98-107); CREATININE 0.7 MG/DL (0.55-1.30); POTASSIUM 3.9 MMOL/L (3.5-5.1); SODIUM 139 MMOL/L (136-145)
--- NOTE | 2019-12-16 07:30 | NUR ---
HAND-OFF: Report given to AURELIO Espinal and AURELIO Seay. Rounds done.
--- NOTE | 2019-12-16 07:40 | NUR ---
NURSE NOTES: Handoff received from RAHEL CAREY. Patient is awake and alert, states that she "is feeling great." Breathing is even and unlabored on room air, CLARISSE PICC is asymptomatic and patent running NS at 20mls/hr. Ileo and G tube are patent and draining to gravity. Bed is in low and locked position, call light is within reach.
[2019-12-16 08:00] VITALS: BP 115/78
--- NOTE | 2019-12-16 11:04 | General Progress Note ---
Progress Note Progress Note AVSS Feels much better past 24 hours with much less pain, and better Kock pouch ileo output Abdomen soft, wounds clean, incision healing upper 3/4 Kock pouch catheter replaced with new 28 Brock On rocephin + Ampicillin CBC, CMP all stable - LFTs down Albumin still 2.6 Imp: Improved with less pain and tolerating full liquids with gastrostomy 3:3 Plan: Gastrostomy 5:1 protocol except overnight to drainage continue TPN, full liquid diet, continuous drainage of Kock pouch Visnhu Cuevas MD Dec 16, 2019 11:04
--- NOTE | 2019-12-16 11:34 | General Progress Note ---
Assessment/Plan Problem List: (1) MALFUNCTIONING JASMINE POUCH (2) Small bowel obstruction ICD Codes: K56.609 - Unspecified intestinal obstruction, unspecified as to partial versus complete obstruction SNOMED: 123423383 (3) Transaminitis ICD Codes: R74.0 - Nonspecific elevation of levels of transaminase and lactic acid dehydrogenase [LDH] SNOMED: 975252342, 758237065 (4) Abdominal pain ICD Codes: R10.9 - Unspecified abdominal pain SNOMED: 06921937 (5) Ulcerative colitis ICD Codes: K51.90 - Ulcerative colitis, unspecified, without complications SNOMED: 32205824 Assessment/Plan: cont current care on full liquid diet and TPN on Ensure + on reglan IV monitor GT and ileostomy drainage fu surg recs overall improving Subjective Allergies: Coded Allergies: METRONIDAZOLE (Verified Allergy, Mild, 09/18/18) HEADACHE, DIZZINESS Uncoded Allergies: hay fever (Allergy, Unknown, 09/24/16) Objective Last 24 Hour Vital Signs Date Time Temp Pulse Resp B/P (MAP) Pulse Ox O2 Delivery O2 Flow Rate FiO2 12/16/19 08:00 98.0 80 14 115/78 (90) 98 12/16/19 05:00 98.4 78 16 128/81 (97) 96 12/16/19 00:00 98.0 82 18 130/66 (87) 96 12/15/19 21:00 Room Air 12/15/19 20:00 98.1 79 17 136/83 (100) 96 12/15/19 16:00 98.0 76 18 163/93 (116) 97 12/15/19 12:00 99.1 71 18 151/91 (111) 97 Intake and Output 12/15/19 12/16/19 19:00 07:00 Intake Total 474 ml 360 ml Output Total 2555 ml 1860 ml Balance -2081 ml -1500 ml Intake Oral 474 ml 360 ml Output Urine Total 2300 ml 1170 ml Other 255 ml 690 ml # Voids 4 Laboratory Tests 12/15/19 15:30: Urine Color Pale yellow, Urine Appearance Clear, Urine pH 7, Urine Specific [place] 1.005, Urine Protein Negative, Urine Glucose (UA) Negative, Urine Ketones Negative, Urine Blood Negative, Urine Nitrite Negative, Urine Bilirubin Negative, Urine Urobilinogen Normal, Urine Leukocyte Esterase Negative, Urine RBC 0-2, Urine WBC 0-2, Urine Squamous Epithelial Cells Few, Urine Bacteria Few 12/16/19 05:15: White Blood Count 7.9, Red Blood Count 4.21, Hemoglobin 12.8, Hematocrit 37.4, Mean Corpuscular Volume 89, Mean Corpuscular Hemoglobin 30.5, Mean Corpuscular Hemoglobin Concent 34.2, Red Cell Distribution Width 11.5L, Platelet Count 422, Mean Platelet Volume 6.9, Neutrophils (%) (Auto) 65.0, Lymphocytes (%) (Auto) 14.7L, Monocytes (%) (Auto) 8.8, Eosinophils (%) (Auto) 10.0H, Basophils (%) ( Auto) 1.6, Sodium Level 139, Potassium Level 3.9, Chloride Level 102, Carbon Dioxide Level 28, Anion Gap 9, Blood Urea Nitrogen 16, Creatinine 0.7, Estimat Glomerular Filtration Rate > 60, Glucose Level 119H, Calcium Level 9.3, Total Bilirubin 0.4, Aspartate Amino Transf (AST/SGOT) 28, Alanine Aminotransferase ( ALT/SGPT) 101H, Alkaline Phosphatase 177H, Total Protein 7.0, Albumin 2.6L, Globulin 4.4, Albumin/Globulin Ratio 0.6L Height (Feet): 5 Height (Inches): 7.00 Weight (Pounds): 124 General Appearance: alert EENT: normal ENT inspection Neck: supple Cardiovascular: normal rate Respiratory/Chest: decreased breath sounds Abdomen: normal bowel sounds, non tender, soft Extremities: non-tender Clarence El MD Dec 16, 2019 11:34
[2019-12-16 12:00] VITALS: BP 133/92
--- NOTE | 2019-12-16 13:00 | NUR ---
RD ASSESSMENT & RECOMMENDATIONS SEE CARE ACTIVITY FOR COMPLETE ASSESSMENT DAILY ESTIMATED NEEDS: Needs based on Surgery, 58kg 28-33 kcals/kg 7568-2920 total kcals 58-116 g protein/kg 54-108 g total protein 25-30 mL/kg 3316-7832 total fluid mLs NUTRITION DIAGNOSIS: Altered GI function r/t malfunctioning ileostomy as evidenced by s/p laparotomy with release of small bowel obstruction, multiple adhesions, and internal hernia with repair of enterotomy x2 and repair of access segment enterotomy, per MD, on TPN, diet advanced to full liquid. CURRENT DIET:Full liquid, on TPN PO DIET RECOMMENDATIONS: Diet per MD PARENTERAL NUTRITION RECOMMENDATIONS: D/AA Rate: 65 IL Rate: 9 Total Rate: 74 Volume: 1776 % Dextrose: 17 % AA: 5.2 Energy (kcals/kg): 1658 Protein (g/kg protein): 81 Nonprotein KCALS: 1334 GIR (mg CHO/kg/min): 3.2 % Fat KCALS: 26 NPC: N Ratio: 103:1 TPN Comment: - D17% + AA5.2% @65ml/hr with 20% IL @9ml/hr. all 3:1 - Maintain at goal. - TPN at goal provides 29kcal/kg and 1.4g/lg pro per day - IL <30% - GIR <5 ------ ADDITIONAL RECOMMENDATIONS: * OBTAIN AN UPDATED STANDING WEIGHT ABLE * WEEKLY STANDING WEIGHTS * MONITOR BGS, LFTS, LYTES ON TPN -> LFTS TRENDING UP Trending down, D5 is DC'd, on Nacl . .
--- NOTE | 2019-12-16 13:42 | NUR ---
*-*INSURANCE*-* ALL CLINICALS AND REVIEWS FAXED TO: ELZBIETA Albert/[facility] REF#[id number] PH: [phone] FAX: [phone]
--- NOTE | 2019-12-16 14:28 | NUR ---
CASE MANAGEMENT:REVIEW 12/16/19 SI: S/P RELEASE OF SMALL BOWEL OBSTRUCTION 98.0 80 14 115/78 98% ON RA BG 119 ALKP 177 ALT 101 IS: IV ROCEPHIN Q24 HR IV AMPICILLIN Q6HR IV NS@20/HR TPN/IL @74/HR AMPICILLIN PO Q6HR HYDROXYZINE Q6HR/PRN KATHIE-HEX 2% TP QD IV REGLAN Q6HRS VIT K SQ Q WEEK \: MED/SURG STATUS 3 EAST DCP: HOME WHEN STABLE PLAN: Gastrostomy 5:1 protocol except overnight to drainage Continue TPN Full liquid diet Continuous drainage of Kock pouch
[2019-12-16 16:00] VITALS: BP 124/85
[2019-12-16] MEDS: cefTRIAXone 1 GM in D5W 50 ML IVPB SCH (18:11)
--- NOTE | 2019-12-16 18:46 | NUR ---
NURSE NOTES: urine output: 1100ml Ileo output: +765 G -tube output: +260 Patient tolerated 5:1 protocol well, did not complain of any discomfort during shift. Patient's catheter was dislodged today at 1600 after ambulating; a new 28 nepalese catheter was inserted and the dressing was changed. Pain is well managed with current pain regimen.
[2019-12-16] MEDS: DiphenhydrAMINE 50mg/ml Inj IVP PRN (18:59)
--- NOTE | 2019-12-16 19:10 | NUR ---
NURSE NOTES: Received report from AURELIO Espinal. Pt is awake, lying semi-duarte's; comfortably resting. No signs of acute distress noted. Pt denies any pain at this time. AOx4; able to make needs known. Checked IV site, line, and rate; patent and running. No erythema, bleeding, or infiltration noted. Bed at lowest position. Brakes on. Siderails up x2. Call light within reach. Will continue to monitor. Addendum: 12/16/19 at 2058 by Binh Powell RN Ileo noted; patent and draining. Gtube noted; plugged. Dressing dry and intact.
--- NOTE | 2019-12-16 19:32 | NUR ---
HAND-OFF: Report given to TYLOR CAREY.
[2019-12-16 20:00] VITALS: BP 122/77
[2019-12-16] MEDS: Dyna-Hex 2% Top Sol 2oz TOPIC SCH (20:07)
[2019-12-16] MEDS: Fat Emulsion Iv 20% 216 ML in Tpn 1,560 ML IV SCH (20:07)
[2019-12-16] MEDS: Hydromorphone 0.5mg/0.5ml inj IVP PRN (23:48)
[2019-12-17] VITALS: BP 117/77
[2019-12-17] MEDS: Metoclopramide 10mg/2ml Inj IVP SCH ×4 (03:05→20:17)
[2019-12-17 04:00] VITALS: BP 131/72
[2019-12-17 05:24] LABS: BASOPHILS % (AUTO) 1.6 % (0.0-2.0); EOSINOPHILS % (AUTO) 12.9 % (0.0-3.0); HEMATOCRIT 36.8 % (37.0-47.0); HEMOGLOBIN 12.9 G/DL (12.0-16.0); LYMPHOCYTES % (AUTO) 15.4 % (20.0-45.0); MEAN CORPUSCULAR VOLUME 89 FL (80-99); MONOCYTES % (AUTO) 10.1 % (1.0-10.0); NEUTROPHILS % (AUTO) 60.1 % (45.0-75.0); PLATELET COUNT 372 K/UL (150-450); RED BLOOD COUNT 4.14 M/UL (4.20-5.40); RED CELL DISTRIBUTION WIDTH 11.7 % (11.6-14.8); WHITE BLOOD COUNT 7.7 K/UL (4.8-10.8)
[2019-12-17] MEDS: oxyCODONE 5mg IR tab ORAL PRN ×4 (05:24→17:52)
[2019-12-17] MEDS: NovoLOG Insulin Flexpen SUBQ SCH ×3 (05:30→17:57)
[2019-12-17 05:43] LABS: ALANINE AMINOTRANSFERASE 77 U/L (12-78); ALBUMIN 2.7 G/DL (3.4-5.0); ALBUMIN/GLOBULIN RATIO 0.7 (1.0-2.7); ALKALINE PHOSPHATASE 155 U/L (46-116); ANION GAP 6 mmol/L (5-15); ASPARTATE AMINO TRANSFERASE 29 U/L (15-37); BILIRUBIN,TOTAL 0.3 MG/DL (0.2-1.0); BLOOD UREA NITROGEN 19 mg/dL (7-18); CALCIUM 9.1 MG/DL (8.5-10.1); CARBON DIOXIDE 27 MMOL/L (21-32); CHLORIDE 103 MMOL/L (98-107); CREATININE 0.7 MG/DL (0.55-1.30); POTASSIUM 4.3 MMOL/L (3.5-5.1); SODIUM 136 MMOL/L (136-145)
--- NOTE | 2019-12-17 07:26 | NUR ---
HAND-OFF: Report given to AURELIO Shirley. Pt is awake and in stable condition. Plan of care endorsed.
--- NOTE | 2019-12-17 07:45 | NUR ---
NURSE NOTES: Received report from AURELIO Culver. Patient awake, alert, no distress noted. Denies pain or discomfort at this time. Wound dressing dry and intact. ileo patent and draining well. G-tube plugged. PICC intact and patent, infusing TPN at 74 cc/hr. Call light within reach. Will continue to monitor.
[2019-12-17 08:00] VITALS: BP 123/82
--- NOTE | 2019-12-17 09:43 | General Progress Note ---
Progress Note Progress Note AVSS Tolerating gastrostomy 5:1 and 75% full liquid diet. Kock pouch catheter replaced x 1 after it fell out. On rocephin and ampicillin Abdomen soft, incision clean, lower wounds clean, and healing Urine 2500 Gastrostomy (5:1) 285 Kock pouch ileo 1100 WBC 7700 Hgb 12.8 Platelets 372,000 LFTs decreasing albumin up but low 2.7 Imp: Slowly improving Plan: Plug gastrostomy continuously continue full liquid diet - Harness Inspector to calculate needs continue TPN ? start RN supervised Kock Pouch self-intubations in Vishnu Cuevas MD Dec 17, 2019 09:43
--- NOTE | 2019-12-17 10:24 | General Progress Note ---
Assessment/Plan Problem List: (1) MALFUNCTIONING JASMINE POUCH (2) Small bowel obstruction ICD Codes: K56.609 - Unspecified intestinal obstruction, unspecified as to partial versus complete obstruction SNOMED: 447270040 (3) Transaminitis ICD Codes: R74.0 - Nonspecific elevation of levels of transaminase and lactic acid dehydrogenase [LDH] SNOMED: 208959842, 342426223 (4) Abdominal pain ICD Codes: R10.9 - Unspecified abdominal pain SNOMED: 78329582 (5) Ulcerative colitis ICD Codes: K51.90 - Ulcerative colitis, unspecified, without complications SNOMED: 95004077 Assessment/Plan: cont current care on full liquid diet and TPN on Ensure + on reglan IV monitor GT and ileostomy drainage fu surg recs improving LFTS overall improving Subjective ROS Limited/Unobtainable: Yes Allergies: Coded Allergies: METRONIDAZOLE (Verified Allergy, Mild, 09/18/18) HEADACHE, DIZZINESS Uncoded Allergies: hay fever (Allergy, Unknown, 09/24/16) Objective Last 24 Hour Vital Signs Date Time Temp Pulse Resp B/P (MAP) Pulse Ox O2 Delivery O2 Flow Rate FiO2 12/17/19 08:00 98.0 83 18 123/82 (96) 98 12/17/19 04:00 98.6 76 16 131/72 (91) 98 12/17/19 00:00 98.5 71 18 117/77 (90) 97 12/16/19 21:00 Room Air 12/16/19 20:00 98.3 75 20 122/77 (92) 98 12/16/19 16:00 97.8 74 18 124/85 (98) 12/16/19 12:00 97.5 85 18 133/92 (106) 96 Intake and Output 12/16/19 12/17/19 19:00 07:00 Intake Total 2590 ml 472 ml Output Total 2125 ml 1770 ml Balance 465 ml -1298 ml Intake Oral 1556 ml 472 ml IV Total 1034 ml Output Urine Total 1100 ml 1400 ml Other 1025 ml 370 ml # Voids 4 Laboratory Tests 12/17/19 05:00: White Blood Count 7.7, Red Blood Count 4.14L, Hemoglobin 12.9, Hematocrit 36.8L , Mean Corpuscular Volume 89, Mean Corpuscular Hemoglobin 31.2H, Mean Corpuscular Hemoglobin Concent 35.2, Red Cell Distribution Width 11.7, Platelet Count 372, Mean Platelet Volume 7.1, Neutrophils (%) (Auto) 60.1, Lymphocytes (% ) (Auto) 15.4L, Monocytes (%) (Auto) 10.1H, Eosinophils (%) (Auto) 12.9H, Basophils (%) (Auto) 1.6, Sodium Level 136, Potassium Level 4.3, Chloride Level 103, Carbon Dioxide Level 27, Anion Gap 6, Blood Urea Nitrogen 19H, Creatinine 0.7, Estimat Glomerular Filtration Rate > 60, Glucose Level 126H, Calcium Level 9.1, Total Bilirubin 0.3, Aspartate Amino Transf (AST/SGOT) 29, Alanine Aminotransferase (ALT/SGPT) 77, Alkaline Phosphatase 155H, Total Protein 6.6, Albumin 2.7L, Globulin 3.9, Albumin/Globulin Ratio 0.7L Height (Feet): 5 Height (Inches): 7.00 Weight (Pounds): 125 General Appearance: alert EENT: normal ENT inspection Neck: supple Cardiovascular: normal rate Respiratory/Chest: lungs clear Abdomen: non tender, soft Extremities: non-tender Clarence El MD Dec 17, 2019 10:24
--- NOTE | 2019-12-17 10:32 | NUR ---
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
[2019-12-17] MEDS: Cyclobenzaprine 10mg Tab ORAL PRN (10:44)
[2019-12-17 12:00] VITALS: BP 132/84
--- NOTE | 2019-12-17 15:38 | Infectious Diseases Prog Note ---
Assessment/Plan Assessment/Plan ASSESSMENT AND PLAN: 1. possible e.coli uti, possible streptococcus uti, urinary symptoms, leukocytosis - ceftriaxone - day # 7/7 - ampicillin - day # 5/7 - leukocytosis resolved - monitor labs - clinically stable 2. The patient has history of small-bowel obstruction, status post release of the bowel obstruction. 3. The patient has history of multiple abdominal surgeries. 4. History of ulcerative colitis. 5. History of proctocolectomy with Kock pouch and history of multiple revisions and bowel obstruction in the past and history of ulcerative colitis. 6. Allergies to metronidazole, hay fever. 7. Social history negative. 8. Family history noncontributory. 9. MAR was noted. 10. Case discussed with RN. 11. Continue treatment per primary consultants. Subjective Constitutional: Denies: fever HEENT: Denies: congestion Respiratory: Denies: shortness of breath Gastrointestinal/Abdominal: Denies: nausea Genitourinary: Denies: dysuria, hematuria, frequency Neurologic: Denies: headache Psychiatric: Denies: depression Skin: Denies: rash Hematologic: Denies: bleeding Musculoskeletal: Denies: pain Allergies: Coded Allergies: METRONIDAZOLE (Verified Allergy, Mild, 09/18/18) HEADACHE, DIZZINESS Uncoded Allergies: hay fever (Allergy, Unknown, 09/24/16) Objective Vital Signs Last 24 Hour Vital Signs Date Time Temp Pulse Resp B/P (MAP) Pulse Ox O2 Delivery O2 Flow Rate FiO2 12/17/19 12:00 98.0 86 18 132/84 (100) 96 12/17/19 09:00 Room Air 12/17/19 08:00 98.0 83 18 123/82 (96) 98 12/17/19 04:00 98.6 76 16 131/72 (91) 98 12/17/19 00:00 98.5 71 18 117/77 (90) 97 12/16/19 21:00 Room Air 12/16/19 20:00 98.3 75 20 122/77 (92) 98 12/16/19 16:00 97.8 74 18 124/85 (98) Height (Feet): 5 Height (Inches): 7.00 Weight (Pounds): 125 General Appearance: no acute distress HEENT: normocephalic, atraumatic, anicteric, mucous membranes moist Respiratory/Chest: lungs clear, normal breath sounds, no respiratory distress, no accessory muscle use Cardiovascular: normal rate, regular rhythm, no gallop/murmur, no JVD Abdomen: normal bowel sounds, soft, non tender, no organomegaly, non distended Genitourinary: other - no vitale Extremities: no cyanosis Skin: no rash 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 2.5 x 3.5 x 11 cm collection of extra fascial subcutaneous air just deep to the skin emil at and below the umbilicus. Conceivable that this is postoperative air, although one would expect that any postsurgical air would have resorbed by now. No definitive enterocutaneous fistula is demonstrated but possibility of such is not excluded. 4.6 x 2.9 x 7.1 cm presacral postsurgical fluid collection. Seroma versus liquefied hematoma. Abscess is not excludable. No evidence of bowel obstruction. Left lower quadrant continent ileostomy with good position of the catheter. Status post subtotal colectomy. Gastrostomy Air in the urinary bladder. This is presumably iatrogenic from recent Vitale catheter placement. Microbiology Date/Time Source Procedure Growth Status 12/09/19 18:46 Blood Blood Culture - Final NO GROWTH AFTER 5 DAYS Complete 12/08/19 15:00 Other Gram Stain - Final Complete 12/08/19 15:00 Other Wound Culture - Final NO GROWTH Complete 11/27/19 04:44 Nasal Nares Right MRSA Culture - Final NO METHICILLIN RESISTANT STAPH AUREUS... Complete 11/27/19 17:00 Stool VRE Culture - Final NO VANCOMYCIN RESISTANT ENTEROCOCCUS ... Complete 12/11/19 20:48 Urine,Clean Catch Urine Culture - Final Enterococcus Faecalis Complete Laboratory Tests Test 12/17/19 05:00 White Blood Count 7.7 K/UL (4.8-10.8) Red Blood Count 4.14 M/UL (4.20-5.40) L Hemoglobin 12.9 G/DL (12.0-16.0) Hematocrit 36.8 % (37.0-47.0) L Mean Corpuscular Volume 89 FL (80-99) Mean Corpuscular Hemoglobin 31.2 PG (27.0-31.0) H Mean Corpuscular Hemoglobin Concent 35.2 G/DL (32.0-36.0) Red Cell Distribution Width 11.7 % (11.6-14.8) Platelet Count 372 K/UL (150-450) Mean Platelet Volume 7.1 FL (6.5-10.1) Neutrophils (%) (Auto) 60.1 % (45.0-75.0) Lymphocytes (%) (Auto) 15.4 % (20.0-45.0) L Monocytes (%) (Auto) 10.1 % (1.0-10.0) H Eosinophils (%) (Auto) 12.9 % (0.0-3.0) H Basophils (%) (Auto) 1.6 % (0.0-2.0) Sodium Level 136 MMOL/L (136-145) Potassium Level 4.3 MMOL/L (3.5-5.1) Chloride Level 103 MMOL/L (98-107) Carbon Dioxide Level 27 MMOL/L (21-32) Anion Gap 6 mmol/L (5-15) Blood Urea Nitrogen 19 mg/dL (7-18) H Creatinine 0.7 MG/DL (0.55-1.30) Estimat Glomerular Filtration Rate > 60 mL/min (>60) Glucose Level 126 MG/DL (74-106) H Calcium Level 9.1 MG/DL (8.5-10.1) Total Bilirubin 0.3 MG/DL (0.2-1.0) Aspartate Amino Transf (AST/SGOT) 29 U/L (15-37) Alanine Aminotransferase (ALT/SGPT) 77 U/L (12-78) Alkaline Phosphatase 155 U/L (46-116) H Total Protein 6.6 G/DL (6.4-8.2) Albumin 2.7 G/DL (3.4-5.0) L Globulin 3.9 g/dL Albumin/Globulin Ratio 0.7 (1.0-2.7) L Current Medications Medications (Trade) Dose Ordered Sig/[place] Route PRN Reason Start Time Stop Time Status Last Admin Dose Admin Acetaminophen (Tylenol) 1,000 mg Q4H PRN GT temp>100.2 or headache 11/28/19 15:30 12/28/19 15:29 12/13/19 02:54 Acetaminophen/ Butalbital/ Caffeine (Fioricet) 1 tab Q6H PRN ORAL For Headache 11/26/19 18:45 12/26/19 18:44 12/04/19 02:17 Ampicillin (Ampicillin) 500 mg EVERY 6 HOURS ORAL 12/13/19 18:00 12/20/19 17:59 12/17/19 12:41 Ceftriaxone Sodium 1 gm/ Dextrose 50 ml @ 100 mls/hr Q24H IVPB 12/11/19 18:30 12/18/19 18:29 12/16/19 18:11 Chlorhexidine Gluconate (Mohini-Hex 2%) 1 applic DAILY@2000 TOPIC 11/26/19 20:00 02/24/20 19:59 12/16/19 20:07 Cyclobenzaprine HCl (Flexeril) 10 mg Q6H PRN ORAL Muscle Spasm 12/03/19 10:30 01/02/20 10:29 12/17/19 10:44 Dextrose 1,000 ml @ 0 mls/hr Q24H PRN IV PN interrupted or unavailable 11/30/19 20:00 12/30/19 19:59 Dextrose (Dextrose 50%) 25 ml Q30M PRN IV Hypoglycemia 11/30/19 09:15 02/28/20 09:14 Dextrose (Dextrose 50%) 50 ml Q30M PRN IV Hypoglycemia 11/30/19 09:15 02/28/20 09:14 Diphenhydramine HCl (Benadryl) 25 mg Q4H PRN IVP Itching/Pruritis 11/29/19 09:50 12/29/19 09:49 12/16/19 18:59 Fat Emulsion Intravenous 216 ml/Amino Acids/ Electrolytes/ Dextrose 1,776 ml @ 74 mls/hr Q24H IV 12/01/19 20:00 12/31/19 19:59 12/16/19 20:07 Fluocinonide (Lidex) 1 applic BID PRN TOPIC Itching 12/03/19 10:30 03/02/20 10:29 Hydromorphone HCl (Dilaudid) 0.5 mg Q3H PRN IVP night-time pain 12/14/19 11:18 12/21/19 11:17 12/16/19 23:48 Hydroxyzine HCl (Atarax) 50 mg Q6H PRN ORAL Itching 11/30/19 09:00 12/30/19 08:59 12/03/19 09:24 Insulin Aspart (NovoLOG) Q6HR SUBQ 12/01/19 00:00 02/29/20 00:00 12/07/19 00:03 Lidocaine HCl (Xylocaine Jelly 2%) 1 applic EVERY 2 HOURS PRN TOPIC For Pain 12/12/19 12:30 03/11/20 12:29 12/12/19 18:21 Metoclopramide HCl (Reglan) 10 mg Q6H IVP 12/10/19 15:00 01/09/20 14:59 12/17/19 14:27 Ondansetron HCl (Zofran) 4 mg Q4H PRN IVP Nausea & Vomiting 11/28/19 15:30 12/28/19 15:29 12/16/19 23:59 Oxycodone HCl (Roxicodone) 10 mg Q3H PRN ORAL Moderate Breakthru Pain (5-7) 12/12/19 06:30 12/19/19 06:29 12/17/19 14:28 Patient Own Medication (Patient's Own Med) 1 ea 2XW@2100 VAGIN 12/04/19 21:00 01/03/20 20:59 12/15/19 21:38 Patient Own Medication (Patient's Own Med) 1 ea EVERY 12 HOURS BOTH EYES 11/26/19 21:00 12/26/19 20:59 12/17/19 09:07 Phytonadione (Vitamin K) 10 mg ONCE A WEEK SUBQ 11/30/19 20:00 02/28/20 19:59 12/14/19 20:39 Simethicone (Mylicon) 80 mg QID PRN ORAL GAS 12/08/19 18:45 03/07/20 18:44 12/15/19 00:28 Hazel De Santiago MD Dec 17, 2019 15:38
[2019-12-17 16:00] VITALS: BP 125/80
--- NOTE | 2019-12-17 16:25 | NUR ---
*-*INSURANCE*-* ALL CLINICALS AND REVIEWS FAXED TO: ELZBIETA Albert/[facility] REF#[id number] PH: [phone] FAX: [phone]
[2019-12-17] MEDS: cefTRIAXone 1 GM in D5W 50 ML IVPB SCH (17:53)
--- NOTE | 2019-12-17 19:45 | NUR ---
NURSE NOTES: Received report from AURELIO Shirley. Pt is awake, lying high-duarte's; comfortably resting. No signs of acute distress noted. Pt denies any pain at this time. AOx4; able to make needs known. Checked IV site, lines, and rates; patent and running. No infiltration, bleeding, or erythema noted. Ileo noted; patent and draining. Gtube noted; plugged and pt is tolerating well. Bed at lowest position. Brakes on. Siderails up x2. Call light within reach. Will continue to monitor.
--- NOTE | 2019-12-17 19:50 | NUR ---
HAND-OFF: Report given to AURELIO Culver.
[2019-12-17 20:00] VITALS: BP 116/76
[2019-12-17] MEDS: Dyna-Hex 2% Top Sol 2oz TOPIC SCH (20:13)
[2019-12-17] MEDS: Fat Emulsion Iv 20% 216 ML in Tpn 1,560 ML IV SCH (20:15)
[2019-12-17] MEDS: DiphenhydrAMINE 50mg/ml Inj IVP PRN (20:58)
[2019-12-18] VITALS: BP 116/69
[2019-12-18] MEDS: Hydromorphone 0.5mg/0.5ml inj IVP PRN (02:20)
[2019-12-18] MEDS: Metoclopramide 10mg/2ml Inj IVP SCH ×4 (02:20→20:16)
[2019-12-18 04:00] VITALS: BP 118/75
[2019-12-18] MEDS: NovoLOG Insulin Flexpen SUBQ SCH ×5 (05:10→23:11)
[2019-12-18] MEDS: oxyCODONE 5mg IR tab ORAL PRN ×4 (05:26→19:58)
[2019-12-18 05:42] LABS: BASOPHILS % (AUTO) 1.7 % (0.0-2.0); EOSINOPHILS % (AUTO) 16.6 % (0.0-3.0); HEMATOCRIT 37.3 % (37.0-47.0); HEMOGLOBIN 12.8 G/DL (12.0-16.0); LYMPHOCYTES % (AUTO) 16.1 % (20.0-45.0); MEAN CORPUSCULAR VOLUME 90 FL (80-99); MONOCYTES % (AUTO) 9.8 % (1.0-10.0); NEUTROPHILS % (AUTO) 55.8 % (45.0-75.0); PLATELET COUNT 327 K/UL (150-450); RED BLOOD COUNT 4.15 M/UL (4.20-5.40); RED CELL DISTRIBUTION WIDTH 11.8 % (11.6-14.8); WHITE BLOOD COUNT 7.6 K/UL (4.8-10.8)
[2019-12-18 05:51] LABS: ALANINE AMINOTRANSFERASE 65 U/L (12-78); ALBUMIN 2.7 G/DL (3.4-5.0); ALBUMIN/GLOBULIN RATIO 0.6 (1.0-2.7); ALKALINE PHOSPHATASE 143 U/L (46-116); ASPARTATE AMINO TRANSFERASE 22 U/L (15-37); BILIRUBIN,TOTAL 0.3 MG/DL (0.2-1.0); BLOOD UREA NITROGEN 18 mg/dL (7-18); CALCIUM 9.3 MG/DL (8.5-10.1); CARBON DIOXIDE 27 MMOL/L (21-32); CHLORIDE 102 MMOL/L (98-107); CREATININE 0.8 MG/DL (0.55-1.30); PHOSPHORUS 4.1 MG/DL (2.5-4.9); POTASSIUM 4.8 MMOL/L (3.5-5.1); SODIUM 138 MMOL/L (136-145)
--- NOTE | 2019-12-18 07:22 | NUR ---
HAND-OFF: Report given to AURELIO Shirley. Pt is sleeping and in stable condition. Plan of care endorsed.
--- NOTE | 2019-12-18 07:58 | NUR ---
NURSE NOTES: Received report from AURELIO Culver. Patient awake, alert, no distress noted. Denies pain or discomfort at this time. Wound dressing dry and intact. Ileo not draining noted. flush 30ccx3. start draining. G-tube plugged. PICC intact and patent, infusing TPN at 74 cc/hr. Call light within reach. Will continue to monitor
[2019-12-18 08:00] VITALS: BP 132/79
[2019-12-18] MEDS ORDERED: HYDROmorphone 2mg tab ORAL PRN (08:29)
[2019-12-18] MEDS ORDERED: Hydromorphone 0.5mg/0.5ml inj IVP PRN (08:30)
--- NOTE | 2019-12-18 08:33 | General Progress Note ---
Progress Note Progress Note AVSS Feeling better and tolerating full liquid diet with protein shakes supplements. Still taking Oxycodone during the day, and dilaudid IV at night Abdomen soft, healing nicely Urine 2950 Gastrostomy plugged Kock pouch ileo 860 labs all stable with albumin still low 2.7 Imp: Improving Plan; Decrease TPN continue gastrostomy plugged, Kock pouch catheter to continuous drainage , full liquid diet Trial of po Dilaudid at hs instead of IV Vishnu Cuevas MD Dec 18, 2019 08:33
--- NOTE | 2019-12-18 09:12 | NUR ---
RD ASSESSMENT & RECOMMENDATIONS SEE CARE ACTIVITY FOR COMPLETE ASSESSMENT RD consult received to calculate how to meet daily nutritional needs on full liquid diet + HPN upon DC. Pt visited, discussed daily est kcal/prot needs. Recommended daily calorie needs of 1600-1900kcal per day and daily protein needs of 60-110g per day. Also discussed kcal/prot content of different HPN. Pt stated Ensure and Ensure like products tend to cause N/V, has been taking Odwalla protein shakes, which contain 300kcal/25g per bottle w/ good tolerance. Observed an empty Odwalla shake that pt consumed this AM. If pt consumes 4 Odwalla shakes daily, pt will receive 1200kcal/100g prot daily just from the shakes. Discussed w/ pt what full liquid diet consists of, and ideas and amount of food items on full liquid diet (w/ supplementation of Odwalla protein shakes) to help her meet daily est needs. Pt asked many questions, verbalized understanding of answers provided. Handout provided as well. DAILY ESTIMATED NEEDS: Needs based on Surgery, 58kg 28-33 kcals/kg 9393-9325 total kcals 58-116 g protein/kg 54-108 g total protein 25-30 mL/kg 5254-8762 total fluid mLs NUTRITION DIAGNOSIS: Altered GI function r/t malfunctioning ileostomy as evidenced by s/p laparotomy with release of small bowel obstruction, multiple adhesions, and internal hernia with repair of enterotomy x2 and repair of access segment enterotomy, per MD, on TPN, diet advanced to full liquid. CURRENT DIET:Full liquid, on TPN (now decreased by 50%) PO DIET RECOMMENDATIONS: Advance diet per MD PARENTERAL NUTRITION RECOMMENDATIONS: Continue to taper down TPN and DC ADDITIONAL RECOMMENDATIONS: * OBTAIN AN UPDATED STANDING WEIGHT ABLE * WEEKLY STANDING WEIGHTS * MONITOR BGS, LFTS, LYTES ON TPN * Diet education provided on how to meet daily nutritional needs on full liquid diet (12/18/19) . Rec Odwalla shakes (300kcal/25g prot per bottle) 4-5 times a day (1200-1500kcal and 100-125g prot) + Added items as prescribed by full liquid diet .
--- NOTE | 2019-12-18 11:55 | General Progress Note ---
Assessment/Plan Problem List: (1) MALFUNCTIONING JASMINE POUCH (2) Small bowel obstruction ICD Codes: K56.609 - Unspecified intestinal obstruction, unspecified as to partial versus complete obstruction SNOMED: 152371384 (3) Transaminitis ICD Codes: R74.0 - Nonspecific elevation of levels of transaminase and lactic acid dehydrogenase [LDH] SNOMED: 543569760, 312660322 (4) Abdominal pain ICD Codes: R10.9 - Unspecified abdominal pain SNOMED: 21552548 (5) Ulcerative colitis ICD Codes: K51.90 - Ulcerative colitis, unspecified, without complications SNOMED: 79710661 Assessment/Plan: cont current care on full liquid diet and TPN on Ensure + on reglan IV monitor GT and ileostomy drainage plan for GT removal tomorrow plan for patient self intubating tomorrow fu surg recs improving LFTS overall improving Subjective ROS Limited/Unobtainable: Yes Allergies: Coded Allergies: METRONIDAZOLE (Verified Allergy, Mild, 09/18/18) HEADACHE, DIZZINESS Uncoded Allergies: hay fever (Allergy, Unknown, 09/24/16) Objective Last 24 Hour Vital Signs Date Time Temp Pulse Resp B/P (MAP) Pulse Ox O2 Delivery O2 Flow Rate FiO2 12/18/19 08:00 98.2 80 18 132/79 (96) 98 12/18/19 04:00 97.3 71 20 118/75 (89) 96 12/18/19 00:00 97.3 77 18 116/69 (85) 96 12/17/19 21:00 Room Air 12/17/19 20:00 97.4 81 16 116/76 (89) 97 12/17/19 16:00 98.5 80 18 125/80 (95) 96 12/17/19 12:00 98.0 86 18 132/84 (100) 96 Intake and Output 12/17/19 12/18/19 19:00 07:00 Intake Total 2400 ml 637 ml Output Total 2640 ml 1170 ml Balance -240 ml -533 ml Intake Oral 2400 ml 637 ml Output Urine Total 1950 ml 1000 ml Other 690 ml 170 ml Laboratory Tests 12/18/19 04:55: White Blood Count 7.6, Red Blood Count 4.15L, Hemoglobin 12.8, Hematocrit 37.3, Mean Corpuscular Volume 90, Mean Corpuscular Hemoglobin 30.9, Mean Corpuscular Hemoglobin Concent 34.4, Red Cell Distribution Width 11.8, Platelet Count 327, Mean Platelet Volume 7.1, Neutrophils (%) (Auto) 55.8, Lymphocytes (%) (Auto) 16.1L, Monocytes (%) (Auto) 9.8, Eosinophils (%) (Auto) 16.6H, Basophils (%) ( Auto) 1.7, Sodium Level 138, Potassium Level 4.8, Chloride Level 102, Carbon Dioxide Level 27, Blood Urea Nitrogen 18, Creatinine 0.8, Estimat Glomerular Filtration Rate > 60, Glucose Level 120H, Calcium Level 9.3, Phosphorus Level 4.1, Magnesium Level 2.0, Total Bilirubin 0.3, Aspartate Amino Transf (AST/SGOT ) 22, Alanine Aminotransferase (ALT/SGPT) 65, Alkaline Phosphatase 143H, Total Protein 6.9, Albumin 2.7L, Globulin 4.2, Albumin/Globulin Ratio 0.6L Height (Feet): 5 Height (Inches): 7.00 Weight (Pounds): 125 General Appearance: alert EENT: normal ENT inspection Neck: supple Cardiovascular: normal rate Respiratory/Chest: lungs clear Abdomen: soft, tender Extremities: non-tender Clarence El MD Dec 18, 2019 11:55
[2019-12-18 12:00] VITALS: BP 124/82
--- NOTE | 2019-12-18 15:34 | NUR ---
*-*INSURANCE*-* ALL CLINICALS AND REVIEWS FAXED TO: ELZBIETA Albert/[facility] REF#[id number] PH: [phone] FAX: [phone]
--- NOTE | 2019-12-18 15:45 | NUR ---
CASE MANAGEMENT:REVIEW 12/18/19 SI: S/P RELEASE OF SMALL BOWEL OBSTRUCTION 98.2 65 20 124/82 97% ON RA BG 120 ALKP 143 ALBUMIN 2.7 IS: IV ROCEPHIN Q24 HR IV AMPICILLIN Q6HR TPN/IL @74/HR AMPICILLIN PO Q6HR HYDROXYZINE Q6HR/PRN KATHIE-HEX 2% TP QD IV REGLAN Q6HRS VIT K SQ Q WEEK OXYCODONE Q3HR/PRN \: MED/SURG STATUS 3 EAST DCP: HOME WHEN STABLE PLAN: Plug gastrostomy continuously DECREASE TPN CONT: Full liquid diet +TPN Continuous drainage of Kock pouch CONTROL PAIN
[2019-12-18 16:00] VITALS: BP 126/78
--- NOTE | 2019-12-18 19:29 | NUR ---
NURSE NOTES: Received report from AURELIO Fisher. Rounding is done with outgoing nurse. Patient is in bed, a/ox4, and able to known her needs. Patient c/o pain 5/10 and will give medication as ordered. No distress noted at this time. PICC line is intact and TPN is running. G-tube is plugged and Ileo is draining to gravity. Dressing on abdomen is c/d/i. Bed is on alarm, locked, and lowest position. Call light within reach. Will continue to monitor.
--- NOTE | 2019-12-18 19:43 | NUR ---
HAND-OFF: Report given to AURELIO Brown. Pt in stable condition. Endorsed plan of care
[2019-12-18 20:00] VITALS: BP 125/76
[2019-12-18] MEDS ORDERED: Fat Emulsion Iv 20% 216 ML in Tpn 1,560 ML IV SCH (20:00)
[2019-12-18] MEDS: Dyna-Hex 2% Top Sol 2oz TOPIC SCH (20:15)
[2019-12-18] MEDS: ESTRADIOL VAGIN SCH (20:16)
[2019-12-19] VITALS: BP 121/79
[2019-12-19] MEDS: Metoclopramide 10mg/2ml Inj IVP SCH ×2 (03:10→09:14)
[2019-12-19 04:00] VITALS: BP 119/70
[2019-12-19] MEDS: oxyCODONE 5mg IR tab ORAL PRN (04:51)
[2019-12-19] MEDS: NovoLOG Insulin Flexpen SUBQ SCH (05:22)
--- NOTE | 2019-12-19 07:30 | NUR ---
NURSE NOTES: Patient is in bed awake and able to verbalize needs. Stable. Denies severe pain but states that she "feels backed up". Will continue to flush ileo and monitor ileo output. GT plugged as ordered. PICC patent and running TPN as ordered. Patient encouraged to ambulate. Surgical dressing c/d/i. Patient is in bed in locked and lowest position with call light within reach. All needs met at this time. Will continue to monitor.
--- NOTE | 2019-12-19 07:32 | NUR ---
HAND-OFF: Report given to Jennie CAREY. Patient in stable condition.
[2019-12-19 08:00] VITALS: BP 113/74
[2019-12-19] MEDS ORDERED: oxyCODONE 5mg IR tab ORAL PRN ×2 (08:56→09:15)
[2019-12-19] MEDS ORDERED: Hydromorphone 0.5mg/0.5ml inj IVP PRN (09:00)
--- NOTE | 2019-12-19 09:51 | NUR ---
CASE MANAGEMENT:REVIEW 12/19/19 SI: S/P RELEASE OF SMALL BOWEL OBSTRUCTION 98.1 79 17 113/74 98% ON RA IS:AMPICILLIN PO Q6HR TPN @24HR KATHIE-HEX 2% TP QD IV REGLAN Q6HRS VIT K SQ Q WEEK OXYCODONE Q3HR/PRN \: MED/SURG STATUS 3 EAST DCP: HOME WHEN STABLE PLAN: Plug gastrostomy continuously DECREASE TPN--- THEN DC TODAY CONT: Full liquid diet +PROTEIN SHAKES Continuous drainage of Kock pouch CONTROL PAIN
[2019-12-19] MEDS ORDERED: Zolpidem 5mg tab ORAL PRN (10:00)
--- NOTE | 2019-12-19 10:06 | General Progress Note ---
Progress Note Progress Note Feeling better and able to tolerate sufficient full liquids + supplements with gastrostomy plugged Abdomen soft, emil removed and steristrips applied Urine 3720 Kock pouch ileo 770 labs all stable/satisfactory albumin still 2.7 Gastrostomy removed without difficulty Kock pouch catheter removed - reinserts readily Imp: Improved Plan: Maintain full liquid diet + supplements - will d/c TPN D/C antibiotics and Oxycodone and Dilaudid hs Try Tramadol 50mg q4h prn pain and Ambien 5mg po qhs prn sleep RN supervised Kock Pouch self-intubations q3h and prn Continue I&O Vishnu Cuevas MD Dec 19, 2019 10:06
--- NOTE | 2019-12-19 10:10 | NUR ---
NURSE NOTES: Discharge supplies at bedside. GT removed by Dr. Cuevas, ileo catheter removed by Dr. Cuevas.
[2019-12-19] MEDS ORDERED: Ascorbic Acid 500mg tab ORAL PRN (10:15)
--- NOTE | 2019-12-19 11:00 | General Progress Note ---
Assessment/Plan Problem List: (1) MALFUNCTIONING JASMINE POUCH (2) Small bowel obstruction ICD Codes: K56.609 - Unspecified intestinal obstruction, unspecified as to partial versus complete obstruction SNOMED: 874535472 (3) Transaminitis ICD Codes: R74.0 - Nonspecific elevation of levels of transaminase and lactic acid dehydrogenase [LDH] SNOMED: 360442477, 187180330 (4) Abdominal pain ICD Codes: R10.9 - Unspecified abdominal pain SNOMED: 81872146 (5) Ulcerative colitis ICD Codes: K51.90 - Ulcerative colitis, unspecified, without complications SNOMED: 00657352 Assessment/Plan: cont current care on full liquid diet and TPN on Ensure + on reglan IV>>> will dc s/p GT removal self intubating fu surg recs improving LFTS overall improving possible dc for tomorrow Subjective ROS Limited/Unobtainable: Yes Allergies: Coded Allergies: METRONIDAZOLE (Verified Allergy, Mild, 09/18/18) HEADACHE, DIZZINESS Uncoded Allergies: hay fever (Allergy, Unknown, 09/24/16) Objective Last 24 Hour Vital Signs Date Time Temp Pulse Resp B/P (MAP) Pulse Ox O2 Delivery O2 Flow Rate FiO2 12/19/19 08:11 Room Air 12/19/19 08:00 98.1 79 113/74 (87) 98 12/19/19 04:00 98.4 76 17 119/70 (86) 96 12/19/19 00:00 97.7 73 17 121/79 (93) 97 12/18/19 21:00 Room Air 12/18/19 20:00 98.3 82 18 125/76 (92) 98 12/18/19 16:00 98.3 89 20 126/78 (94) 95 12/18/19 12:00 98.2 65 20 124/82 (96) 97 Intake and Output 12/18/19 12/19/19 19:00 07:00 Intake Total 2100 ml 694 ml Output Total 2390 ml 2150 ml Balance -290 ml -1456 ml Intake Oral 2100 ml 250 ml IV Total 444 ml Output Urine Total 1800 ml 1970 ml Other 590 ml 180 ml Height (Feet): 5 Height (Inches): 7.00 Weight (Pounds): 125 General Appearance: alert EENT: normal ENT inspection Neck: supple Cardiovascular: normal peripheral pulses Respiratory/Chest: lungs clear Abdomen: soft Extremities: non-tender Clarence El MD Dec 19, 2019 11:00
[2019-12-19 12:00] VITALS: BP 129/80
--- NOTE | 2019-12-19 12:00 | NUR ---
NURSE NOTES: Patient intubated with RN supervision. Patient flushed with 40cc NS twice, 175cc brown liquid output measured (true output: 95cc).
[2019-12-19] MEDS: traMADol 50mg tab ORAL PRN ×4 (12:04→23:26)
--- NOTE | 2019-12-19 13:34 | NUR ---
*-*INSURANCE*-* ALL CLINICALS AND REVIEWS FAXED TO: ELZBIETA Albert[facility][id number] PH: [phone] FAX: [phone]
--- NOTE | 2019-12-19 14:02 | Infectious Diseases Prog Note ---
Assessment/Plan Assessment/Plan ASSESSMENT AND PLAN: 1. possible e.coli uti, possible enterococcus uti, urinary symptoms, leukocytosis - s/p ceftriaxone - finish ampicillin - leukocytosis resolved - monitor labs - clinically stable form ID standpoint 2. The patient has history of small-bowel obstruction, status post release of the bowel obstruction. 3. The patient has history of multiple abdominal surgeries. 4. History of ulcerative colitis. 5. History of proctocolectomy with Kock pouch and history of multiple revisions and bowel obstruction in the past and history of ulcerative colitis. 6. Allergies to metronidazole, hay fever. 7. Social history negative. 8. Family history noncontributory. 9. MAR was noted. 10. Case discussed with RN. 11. Continue treatment per primary consultants. Subjective Constitutional: Denies: fever HEENT: Denies: congestion Respiratory: Denies: shortness of breath Cardiovascular: Denies: chest pain Gastrointestinal/Abdominal: Denies: nausea, vomiting, diarrhea Genitourinary: Reports: other - no vitale Neurologic: Denies: headache Psychiatric: Denies: depression Skin: Denies: rash Hematologic: Denies: bleeding Musculoskeletal: Denies: pain Allergies: Coded Allergies: METRONIDAZOLE (Verified Allergy, Mild, 09/18/18) HEADACHE, DIZZINESS Uncoded Allergies: hay fever (Allergy, Unknown, 09/24/16) Objective Vital Signs Last 24 Hour Vital Signs Date Time Temp Pulse Resp B/P (MAP) Pulse Ox O2 Delivery O2 Flow Rate FiO2 12/19/19 12:00 98.2 93 18 129/80 (96) 96 12/19/19 08:11 Room Air 12/19/19 08:00 98.1 79 113/74 (87) 98 12/19/19 04:00 98.4 76 17 119/70 (86) 96 12/19/19 00:00 97.7 73 17 121/79 (93) 97 12/18/19 21:00 Room Air 12/18/19 20:00 98.3 82 18 125/76 (92) 98 12/18/19 16:00 98.3 89 20 126/78 (94) 95 Height (Feet): 5 Height (Inches): 7.00 Weight (Pounds): 125 General Appearance: no acute distress HEENT: normocephalic, atraumatic, anicteric, mucous membranes moist Respiratory/Chest: lungs clear, normal breath sounds, no respiratory distress, no accessory muscle use Cardiovascular: normal rate, regular rhythm, no gallop/murmur, no JVD Abdomen: normal bowel sounds, soft, non tender, no organomegaly, non distended Genitourinary: other - no vitale Extremities: no cyanosis Skin: no rash 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 2.5 x 3.5 x 11 cm collection of extra fascial subcutaneous air just deep to the skin emil at and below the umbilicus. Conceivable that this is postoperative air, although one would expect that any postsurgical air would have resorbed by now. No definitive enterocutaneous fistula is demonstrated but possibility of such is not excluded. 4.6 x 2.9 x 7.1 cm presacral postsurgical fluid collection. Seroma versus liquefied hematoma. Abscess is not excludable. No evidence of bowel obstruction. Left lower quadrant continent ileostomy with good position of the catheter. Status post subtotal colectomy. Gastrostomy Air in the urinary bladder. This is presumably iatrogenic from recent Vitale catheter placement. Microbiology Date/Time Source Procedure Growth Status 12/09/19 18:46 Blood Blood Culture - Final NO GROWTH AFTER 5 DAYS Complete 12/08/19 15:00 Other Gram Stain - Final Complete 12/08/19 15:00 Other Wound Culture - Final NO GROWTH Complete 11/27/19 04:44 Nasal Nares Right MRSA Culture - Final NO METHICILLIN RESISTANT STAPH AUREUS... Complete 11/27/19 17:00 Stool VRE Culture - Final NO VANCOMYCIN RESISTANT ENTEROCOCCUS ... Complete 12/11/19 20:48 Urine,Clean Catch Urine Culture - Final Enterococcus Faecalis Complete Labs Test 12/17/19 05:00 12/18/19 04:55 White Blood Count 7.7 K/UL (4.8-10.8) 7.6 K/UL (4.8-10.8) Red Blood Count 4.14 M/UL (4.20-5.40) 4.15 M/UL (4.20-5.40) Hemoglobin 12.9 G/DL (12.0-16.0) 12.8 G/DL (12.0-16.0) Hematocrit 36.8 % (37.0-47.0) 37.3 % (37.0-47.0) Mean Corpuscular Volume 89 FL (80-99) 90 FL (80-99) Mean Corpuscular Hemoglobin 31.2 PG (27.0-31.0) 30.9 PG (27.0-31.0) Mean Corpuscular Hemoglobin Concent 35.2 G/DL (32.0-36.0) 34.4 G/DL (32.0-36.0) Red Cell Distribution Width 11.7 % (11.6-14.8) 11.8 % (11.6-14.8) Platelet Count 372 K/UL (150-450) 327 K/UL (150-450) Mean Platelet Volume 7.1 FL (6.5-10.1) 7.1 FL (6.5-10.1) Neutrophils (%) (Auto) 60.1 % (45.0-75.0) 55.8 % (45.0-75.0) Lymphocytes (%) (Auto) 15.4 % (20.0-45.0) 16.1 % (20.0-45.0) Monocytes (%) (Auto) 10.1 % (1.0-10.0) 9.8 % (1.0-10.0) Eosinophils (%) (Auto) 12.9 % (0.0-3.0) 16.6 % (0.0-3.0) Basophils (%) (Auto) 1.6 % (0.0-2.0) 1.7 % (0.0-2.0) Sodium Level 136 MMOL/L (136-145) 138 MMOL/L (136-145) Potassium Level 4.3 MMOL/L (3.5-5.1) 4.8 MMOL/L (3.5-5.1) Chloride Level 103 MMOL/L (98-107) 102 MMOL/L (98-107) Carbon Dioxide Level 27 MMOL/L (21-32) 27 MMOL/L (21-32) Anion Gap 6 mmol/L (5-15) Blood Urea Nitrogen 19 mg/dL (7-18) 18 mg/dL (7-18) Creatinine 0.7 MG/DL (0.55-1.30) 0.8 MG/DL (0.55-1.30) Estimat Glomerular Filtration Rate > 60 mL/min (>60) > 60 mL/min (>60) Glucose Level 126 MG/DL (74-106) 120 MG/DL (74-106) Calcium Level 9.1 MG/DL (8.5-10.1) 9.3 MG/DL (8.5-10.1) Total Bilirubin 0.3 MG/DL (0.2-1.0) 0.3 MG/DL (0.2-1.0) Aspartate Amino Transf (AST/SGOT) 29 U/L (15-37) 22 U/L (15-37) Alanine Aminotransferase (ALT/SGPT) 77 U/L (12-78) 65 U/L (12-78) Alkaline Phosphatase 155 U/L (46-116) 143 U/L (46-116) Total Protein 6.6 G/DL (6.4-8.2) 6.9 G/DL (6.4-8.2) Albumin 2.7 G/DL (3.4-5.0) 2.7 G/DL (3.4-5.0) Globulin 3.9 g/dL 4.2 g/dL Albumin/Globulin Ratio 0.7 (1.0-2.7) 0.6 (1.0-2.7) Phosphorus Level 4.1 MG/DL (2.5-4.9) Magnesium Level 2.0 MG/DL (1.8-2.4) Current Medications Medications (Trade) Dose Ordered Sig/[place] Route PRN Reason Start Time Stop Time Status Last Admin Dose Admin Acetaminophen (Tylenol) 1,000 mg Q4H PRN GT temp>100.2 or headache 11/28/19 15:30 12/28/19 15:29 12/13/19 02:54 Acetaminophen/ Butalbital/ Caffeine (Fioricet) 1 tab Q6H PRN ORAL For Headache 11/26/19 18:45 12/26/19 18:44 12/04/19 02:17 Ascorbic Acid (Vitamin C) 500 mg NEEDED PRN ORAL ithick ileostomy effluent 12/19/19 10:15 01/18/20 10:14 Chlorhexidine Gluconate (Mohini-Hex 2%) 1 applic DAILY@2000 TOPIC 11/26/19 20:00 02/24/20 19:59 12/18/19 20:15 Dextrose 1,000 ml @ 0 mls/hr Q24H PRN IV PN interrupted or unavailable 11/30/19 20:00 12/30/19 19:59 Dextrose (Dextrose 50%) 25 ml Q30M PRN IV Hypoglycemia 11/30/19 09:15 02/28/20 09:14 Dextrose (Dextrose 50%) 50 ml Q30M PRN IV Hypoglycemia 11/30/19 09:15 02/28/20 09:14 Fat Emulsion Intravenous 216 ml/Amino Acids/ Electrolytes/ Dextrose 1,776 ml @ 37 mls/hr Q24H IV 12/18/19 20:00 01/17/20 19:59 12/18/19 20:17 Fluocinonide (Lidex) 1 applic BID PRN TOPIC Itching 12/03/19 10:30 03/02/20 10:29 Hydroxyzine HCl (Atarax) 50 mg Q6H PRN ORAL Itching 11/30/19 09:00 12/30/19 08:59 12/03/19 09:24 Lidocaine HCl (Xylocaine Jelly 2%) 1 applic EVERY 2 HOURS PRN TOPIC For Pain 12/12/19 12:30 03/11/20 12:29 12/12/19 18:21 Metoclopramide HCl (Reglan) 10 mg Q6H PRN ORAL Nausea & Vomiting 12/19/19 11:00 01/18/20 10:59 Patient Own Medication (Patient's Own Med) 1 ea 2XW@2100 VAGIN 12/04/19 21:00 01/03/20 20:59 12/18/19 20:16 Patient Own Medication (Patient's Own Med) 1 ea EVERY 12 HOURS BOTH EYES 11/26/19 21:00 12/26/19 20:59 12/19/19 09:14 Phytonadione (Vitamin K) 10 mg ONCE A WEEK SUBQ 11/30/19 20:00 02/28/20 19:59 12/14/19 20:39 Simethicone (Mylicon) 80 mg QID PRN ORAL GAS 12/08/19 18:45 03/07/20 18:44 12/15/19 00:28 Tramadol HCl (Ultram) 50 mg Q4H PRN ORAL For Pain 12/19/19 10:00 12/26/19 09:59 12/19/19 12:04 Zolpidem Tartrate (Ambien) 5 mg HSPRN PRN ORAL Insomnia 12/19/19 10:00 12/26/19 09:59 Hazel De Santiago MD Dec 19, 2019 14:02
[2019-12-19 16:00] VITALS: BP 118/75
--- NOTE | 2019-12-19 18:47 | NUR ---
NURSE NOTES: Patient is able to intubate independently, no c/o abdominal distension or discomfort. True ileo: 540cc brown liquid output. Flushed with NS through singh catheter while self intubating. UO: 1150cc daniel urine noted. Patient states that tramadol is effective. Patient ambulates independently throughout shift. All discharge supplies at bedside.
--- NOTE | 2019-12-19 19:20 | NUR ---
HAND-OFF: Report given to Josefina CAREY. Patient is stable.
--- NOTE | 2019-12-19 19:30 | NUR ---
NURSE NOTES: Received report & pt from AURELIO Schneider. Pt lying in bed, a&ox4, in room air. No s/s of acute distress & c/o 3/10 pain. Pt requesting for PRN pain med when due. Pt last self-intubated @ 1800. Pt aware next self-intubation at 2100 hs. Dressing C/D/I. PICC line intact & S/L'd. Plan of care discussed.
[2019-12-19] MEDS: Dyna-Hex 2% Top Sol 2oz TOPIC SCH (19:36)
[2019-12-19 20:00] VITALS: BP 145/72
--- NOTE | 2019-12-19 20:00 | NUR ---
NURSE NOTES: GT dressing changed to a light drsg with 4x4 & paper tape. Wants Ambien @ 2100 for sleep; will give later.
[2019-12-20] MEDS: traMADol 50mg tab ORAL PRN ×2 (03:33→07:33)
[2019-12-20 03:40] VITALS: BP 112/72
--- NOTE | 2019-12-20 07:19 | NUR ---
HAND-OFF: Report given to AURELIO Schneider. Pt in stable condition.
--- NOTE | 2019-12-20 07:26 | General Progress Note ---
Assessment/Plan Problem List: (1) MALFUNCTIONING JASMINE POUCH (2) Small bowel obstruction ICD Codes: K56.609 - Unspecified intestinal obstruction, unspecified as to partial versus complete obstruction SNOMED: 376021311 (3) Transaminitis ICD Codes: R74.0 - Nonspecific elevation of levels of transaminase and lactic acid dehydrogenase [LDH] SNOMED: 047139916, 007907416 (4) Abdominal pain ICD Codes: R10.9 - Unspecified abdominal pain SNOMED: 02223572 (5) Ulcerative colitis ICD Codes: K51.90 - Ulcerative colitis, unspecified, without complications SNOMED: 54702876 Assessment/Plan: cont current care on full liquid diet and TPN on Ensure + s/p GT removal self intubating fu surg recs improving LFTS overall improving possible dc for today Subjective ROS Limited/Unobtainable: Yes Allergies: Coded Allergies: METRONIDAZOLE (Verified Allergy, Mild, 09/18/18) HEADACHE, DIZZINESS Uncoded Allergies: hay fever (Allergy, Unknown, 09/24/16) Objective Last 24 Hour Vital Signs Date Time Temp Pulse Resp B/P (MAP) Pulse Ox O2 Delivery O2 Flow Rate FiO2 12/20/19 03:40 97.6 71 17 112/72 (85) 94 12/19/19 20:40 Room Air 12/19/19 20:00 97.2 72 16 145/72 (96) 96 12/19/19 16:00 98.4 72 20 118/75 (89) 99 12/19/19 12:00 98.2 93 18 129/80 (96) 96 12/19/19 08:11 Room Air 12/19/19 08:00 98.1 79 113/74 (87) 98 Intake and Output 12/19/19 12/20/19 19:00 07:00 Intake Total 37 ml 120 ml Output Total 1690 ml 1635 ml Balance -1653 ml -1515 ml Intake Oral 120 ml IV Total 37 ml Output Urine Total 1150 ml 1250 ml Other 540 ml 385 ml Height (Feet): 5 Height (Inches): 7.00 Weight (Pounds): 125 General Appearance: alert EENT: PERRL/EOMI Neck: supple Cardiovascular: normal rate Respiratory/Chest: lungs clear Abdomen: soft Extremities: non-tender Clarence El MD Dec 20, 2019 07:26
--- NOTE | 2019-12-20 07:30 | NUR ---
NURSE NOTES: Patient is in bed awake and able to verbalize needs. Stable. C/o 3/10 pain and is asking for tramadol. Patient is able to intubate independently, will monitor output throughout shift. Patient had 50% breakfast, no c/o abdominal discomfort at this time. Patient is in bed in locked and lowest position with call light within reach. All needs met at this time. Will continue to monitor.
[2019-12-20 08:00] VITALS: BP 125/87
--- NOTE | 2019-12-20 09:29 | General Progress Note ---
Progress Note Progress Note AVSS Doing well with clear liquid diet + protein shakes, Tramadol prn pain, Ambien 5mg prn hs, and learned wound self-care Doing Kock pouch self-intubations without issues Abdomen soft Urine 2400 Kock pouch ileo 925 Imp: doing well Plan; discharge Rx Tramadol 50mg #40 q4h prn pain Ambien 5mg #30 qhs prn sleep F/U office 12/24 Instructions/limitations/supplies discussed/provided Vishnu Cuevas MD Dec 20, 2019 09:29
--- NOTE | 2019-12-20 09:51 | NUR ---
NURSE NOTES: PICC line removed. Discharge instructions given to patient by Dr. Cuevas. All belongings accounted for. Patient is ready for discharge home.
[2019-12-20] MEDS ORDERED: traMADol 50mg tab ORAL SCH (10:00)
--- NOTE | 2019-12-20 10:30 | NUR ---
NURSE NOTES: Patient discharged home as ordered. Stable. Denies pain or SOB. Patient was given thorough discharge instructions by Dr. Cuevas, follow up appointment made on 12/25/2019, patient verbalized understanding. Patient has all belongings and all discharge supplies. Patient's home medications returned, prescription is in hand, patient verbalized that she will get the medication filled at her home pharmacy. Medication teaching given to patient, patient verbalized understanding. Pain management instructions given to patient by Dr. Cuevas, patient verbalized understanding. Surgical site care instructions given to patient by Dr. Cuevas. Dressings changed by MD prior to discharge. No IV access. Skin is c/d/i. Patient assisted into private vehicle by RN without incident.
[2019-12-20] MEDS ORDERED: NS Irrig 1000ml ONE (11:08)
--- NOTE | 2019-12-21 16:34 | Discharge Summary ---
Discharge Summary Hospital Course Date of Admission Nov 26, 2019 at 02:22 Date of Discharge Dec 20, 2019 at 11:09 Admitting Diagnosis recurrent partial bowel obstruction Reason for Hospitalization: elective surgery HPI Mily Chowdhury is a 69 year old female who was admitted on Nov 26, 2019 at 02 :22 for Small Bowel Obstruction 69-year-old female in overall good health, who has an original diagnosis of ulcerative colitis and who has undergone proctocolectomy with Kock pouch continent ileostomy with multiple revisions, most recently in September 2018. At that time, she underwent laparotomy with revision of her Kock pouch and lysis of small bowel adhesions on September 25, 2018, but on October 12, 2018 required return to the operating room for persistent worsening early postoperative obstruction and underwent a segmental small bowel resection to release the obstruction in the right upper quadrant. She since did very well until November 04, 2019 when she had the first of several episodes of severe crampy abdominal pain with episodes of nausea and vomiting, but no difficulties with intubating her Kock pouch. She was hospitalized near her home and CT scan of abdomen and pelvis with contrast revealed an obstruction with a point of transition near a previous anastomosis in the right upper quadrant and in the right upper mid abdomen. The patient had a nasogastric tube, and the obstruction resolved spontaneously. She restricted her diet, but had another episode November 25 requiring hospitalization through the emergency room again near her home and again it resolved. She was placed on a strict low residue diet with no roughage of any kind and had recurrent acute abdominal pain with nausea, vomiting the night of November 24 leading her to come to the [place] emergency room. Her symptoms have relented to some degree and when she catheterizes her Kock pouch she has a small amount of enteric fluid. Consultations Dr. Rehman pain specialist ID specialist Dr. El GI specialist Procedures s/p 11/28/[address] Cuevas Laparotomy with release of recurring small bowel obstruction and lysis of multiple adhesions, repair of internal hernia, repair of enterotomy x2 and repair of access segment enterotomy x1. Hospital Course CT scan of the abdomen and pelvis in the emergency department revealed slow transit through bowel, no acute obstruction PICC line was placed Kock pouch catheter was placed to continuous drainage this was patient's third episode during the last 3 weeks of severe abdominal pain with nausea and vomiting, requiring hospitalization patient required laparotomy due to recurrent small bowel obstruction with dehydration intake and output were closely monitored full discussion regarding patient's condition and the surgery provided; patient consented for surgery patient subsequently undergone on laparotomy with release of recurring small bowel obstruction and lysis of multiply adhesion, repair of internal hernia, repair of enterotomy x2 and repair of access segment enterotomy x1 postoperatively patient was kept n.p.o. pain management was addressed with [employer] Dilaudid, and Toradol added for breakthrough pain - good relief intake and output and labs were closely monitored gastrostomy and Kock pouch catheter were maintained to drainage Brock catheter was continued patient started on TPN, n.p.o. status was continued electrolytes corrected as needed patient continued to be in pain and basal rate of [employer] was increased along with Toradol dose on 11/30 basal rate of [employer] was discontinued N.p.o. and TPN continued patient started on IV Venofer and received total of 5 doses patient started on folic acid replacement noted prolonged ileus KUB revealed nonobstructive bowel gas pattern patient had abdominal distention and pain and subsequently undergone Kock pouch pouchogram which showed normal pouch , catheter in good position, no reflux into afferent bowel patient subsequently undergone Gastrografin upper GI/small bowel series with gastrostomy plugged, which revealed no small bowel obstruction [employer] was discontinued on 12/05 patient started on Reglan IV around the clock N.p.o. status and TPN continued intake and output and labs were closely monitored patient undergone CT scan of the abdomen and pelvis due to persistent abdominal pain to rule out intra-abdominal abscess CT scan showed subcutaneous air from umbilical area to pubis, no contrast in tissues, no obstruction, fluid in deep pelvis some emil were removed , with release of subcutaneous air without any fluid or enteric material culture was sent and wound was packed patient was observed for possible fistula in evolution wound culture revealed no evidence of growth blood cultures were negative no evidence of enterocutaneous fistula ID ,GI and pain management specialists followed patient continues to be n.p.o. on TPN with gastrostomy to continuous drainage and continued drainage of Kock pouch labs were followed up leukocytosis resolved urine was cultured due to bladder spasm and revealed Enterococcus faecalis patient completed antibiotic for UTI patient started on trial of clear liquid diet TPN was continued. indwelling Kock pouch catheter was maintained to drainage diet was advanced to full liquid diet with gastrostomy 3:3 protocol continuous drainage of Kock pouch maintained patient tolerated full liquid diet with gastrostomy 3:3 protocol patient started on gastrostomy 5:1 protocol , except overnight tube drainage and continued on full liquid diet patient was slowly improving gastrostomy tube was plugged continuously on 12/17 TPN was tapered and discontinued patient started on RN supervised Kock pouch self intubation every 3 hours and as needed am to HS and at night as needed patient was doing well with self intubation pain management was addressed , and pain was controlled with oral analgesics patient was stable for discharge instruction/limitations/supplies discussed/provided patient to follow-up in the office 12/24 POSTOPERATIVE DIAGNOSES: 1. Recurring small bowel obstruction. 2. History of ulcerative colitis. 3. Status post multiple abdominal operations. 3.1. Proctocolectomy and Kock pouch in 1984. 3.2. Revision of Kock pouch valve in 1985. 3.3. Revision of Kock pouch stoma stricture in 2007. 3.4. Revision of Kock pouch stoma and access segment in depth 09/25/2016 3.5. Laparotomy with creation of a new valve and stoma with preservation of the Kock pouch and relocation of the stoma to the left lower quadrant 2016 3.6. Laparotomy with revision of Kock pouch valve and lysis of small bowel adhesions on 09/25/2018. 3.7. Laparotomy for early postoperative small bowel obstruction with segmental small bowel resection on 10/12/2018. 4. s/p 11/27 Laparotomy with release of recurring small bowel obstruction and lysis of multiple adhesions, repair of internal hernia, repair of enterotomy x2 and repair of access segment enterotomy x1. 5. Persistent partial small bowel obstruction 6. Anemia of iron deficiency 7. Anemia folate deficiency 8. Prolonged ileus 9. Bowel motility disorder 10. Malnutrition 11. UTI , s/p treatment 12. Leukocytosis - resolved Discharge Medications Continued Medications: Ascorbic Acid* (Vitamin C*) 500 Mg Tablet 500 MG ORAL DAILY, #30 TAB 0 Refills (This prescription has been renewed) Azelastine Hcl (Azelastine Hcl) 137 Mcg/0.137 Ml [place].pump 2 SPRAYS NS DAILY (This prescription has been renewed) [Baking Soda] () 1 TSP DAILY for bladder spasms (This prescription has been renewed) 1 teaspoon dissolved in 1/4 cup of water daily; 45 mins before breakfast or 2 hrs after breakfast Budesonide, Micronized (Budesonide) 0.5 Gm Powder 0.5 GM MC, GM (This prescription has been renewed) Carisoprodol* (Soma*) 350 Mg Tablet 350 MG PO Q6H PRN for MUSCLE SPASM, TAB Estradiol (Imvexxy) 10 Mcg Insert 10 MCG VG 2XW for Hormone, INSERT Every Sunday and at bedtime Estradiol* (Estrace*) 1 Mg Tablet 1 MG VAGIN DAILY for for hormones, #10 TAB 0 Refills (This prescription has been renewed) Fluticasone Propionate (Flonase Allergy Relief) 9.9 Ml [place].susp 1 SPR NS DAILY (This prescription has been renewed) Ibuprofen* (Advil*) 200 Mg Tablet 200 MG ORAL Q6H PRN for For Headache, TAB Magnesium Amino Acid Chelate (Magnesium) 100 Mg Tablet 120 MG PO DAILY for x, TAB (This prescription has been renewed) [place]-3 Fatty Acids/Fish Oil ([place] 3 Fish Oil Softgel) 1 Each Capsule.dr 1 EACH PO DAILY, CAP (This prescription has been renewed) [xiidra] () 1 BOTH EYES EVERY 12 HOURS PRN for Dry Eyes (This prescription has been renewed) In the morning and at bedtime Discharge Condition Upon Discharge: stable Discharge Vital Signs Last Vital Signs Date Time Temp Pulse Resp B/P (MAP) Pulse Ox O2 Delivery O2 Flow Rate FiO2 12/20/19 08:59 Room Air 12/20/19 08:00 97.4 76 17 125/87 (100) 96 Discharge Disposition Patient was discharged home Discharge Instructions Discharge Instructions Special Instructions I have been assigned to complete a D/C Summary on this account. I was not involved in the patient management Gogo Maddox RN OFFICE Dec 21, 2019 16:34
--- NOTE | 2019-12-22 11:12 | NUR ---
*-*INSURANCE*-* DISCHARGE SUMMARY HAS BEEN FAXED TO: ELZBIETA Albert/JANE REF#[id number] PH: [phone] FAX: [phone]
== END 2019-12-20 11:09 | disposition home or self-care (01) | DRG 330 ==
LOC: EMR 01:55 → 3E 02:22
PROC: 02HV33Z Insertion of Infusion Device into Superior Vena Cava, Percutaneous Approach (ICD-10-PCS; principal; 2019-11-26)
PROC: B518ZZA Fluoroscopy of Superior Vena Cava, Guidance (ICD-10-PCS; principal; 2019-11-26)
PROC: 0WQF0ZZ Repair Abdominal Wall, Open Approach (ICD-10-PCS; 2019-11-28)
PROC: 0DQ80ZZ Repair Small Intestine, Open Approach (ICD-10-PCS; 2019-11-28)
PROC: 0DN80ZZ Release Small Intestine, Open Approach (ICD-10-PCS; 2019-11-28)
PROC: 0D9630Z Drainage of Stomach with Drainage Device, Percutaneous Approach (ICD-10-PCS; 2019-11-28)
DX: K56.50 Intestinal adhesions [bands], unspecified as to partial versus complete obstruction (principal); K51.90 Ulcerative colitis, unspecified, without complications; E46 Unspecified protein-calorie malnutrition; N39.0 Urinary tract infection, site not specified; K91.71 Accidental puncture and laceration of a digestive system organ or structure during a digestive system procedure; K94.13 Enterostomy malfunction; K56.7 Ileus, unspecified; D50.9 Iron deficiency anemia, unspecified; D52.9 Folate deficiency anemia, unspecified; G89.18 Other acute postprocedural pain; B96.20 Unspecified Escherichia coli [E. coli] as the cause of diseases classified elsewhere; B95.5 Unspecified streptococcus as the cause of diseases classified elsewhere; D72.829 Elevated white blood cell count, unspecified; K46.9 Unspecified abdominal hernia without obstruction or gangrene; R74.0 Nonspecific elevation of levels of transaminase and lactic acid dehydrogenase [LDH]
CPT/HCPCS: 36415; 36569; 71045; 74018; 74177; 74270; 76937; 80048; 80053; 81001; 81003; 82248; 82607; 82746; 82962; 83540; 83550; 83735; 84100; 85007; 85025; 85610; 87040; 87070; 87081; 87086; 87181; 87205; 94003; 94150; 99285; J1815; J2405; J2765; J7030; S0077

== ENCOUNTER 2019-12-28 17:27 | Inpatient (IN) | payer BC ==
[~2019-12-28] VITALS: Ht 162.6 cm; Wt 56.4 kg
[~2019-12-28 17:27] MED LIST changes: +BAKING SODA; +ESTRACE1 MG VAGIN; +IMVEXXY10 MCG VG; +MAGNESIUM100 MG PO; +XIIDRA BOTH EYES
[2019-12-28] MEDS ORDERED: Morphine Sulfate 4mg/ml Inj (IV USE ONLY) IVP ONE ×2 (17:45→19:00)
[2019-12-28] MEDS ORDERED: Omnipaque-300 100ml vial INJ PRN (17:45)
--- NOTE | 2019-12-28 17:45 | NUR ---
ED Nurse Note:pt. was send to ER by dr. Valentine for BCIR surgery revision, pt. c/o severe abdominal pain started today, she has surgical incision in lower abdomen, blood was sent to labs and pin meds given
[2019-12-28 17:51] VITALS: BP 144/86
[2019-12-28 17:59] LABS: BASOPHILS % (AUTO) 1.5 % (0.0-2.0); EOSINOPHILS % (AUTO) 4.2 % (0.0-3.0); HEMATOCRIT 40.6 % (37.0-47.0); HEMOGLOBIN 13.5 G/DL (12.0-16.0); LYMPHOCYTES % (AUTO) 17.1 % (20.0-45.0); MEAN CORPUSCULAR VOLUME 93 FL (80-99); MONOCYTES % (AUTO) 6.7 % (1.0-10.0); NEUTROPHILS % (AUTO) 70.5 % (45.0-75.0); PLATELET COUNT 251 K/UL (150-450); RED BLOOD COUNT 4.37 M/UL (4.20-5.40); RED CELL DISTRIBUTION WIDTH 13.6 % (11.6-14.8); WHITE BLOOD COUNT 10.4 K/UL (4.8-10.8)
--- NOTE | 2019-12-28 18:07 | Emergency Room Report ---
History of Present Illness General Chief Complaint: Abdominal Pain Source: Patient, Medical Record, PMD Present Illness HPI Patient is a 69-year-old female past medical history of recurring small bowel obstruction, ulcerative colitis, multiple abdominal surgeries, proctocolectomy and Kock pouch with revision and stoma stricture most recently laparotomy with release of recurring small bowel obstruction and lysis of multiple adhesions and repair of internal hernia and repair of enterotomy and repair of access segment enterotomy on November 27 who was discharged 10 days ago presents to the ER complaining of abdominal pain. Patient states that she started having worsening abdominal pain since this morning. She complains of nausea. She denies any fever or chills. She denies any vomiting. She denies any chest pain or shortness of breath. Her surgeon Dr. Cuevas called ahead. At [address] Garcia to see if he would like oral contrast for the CT abd/pelvis. Allergies: Coded Allergies: METRONIDAZOLE (Verified Allergy, Mild, 09/18/18) HEADACHE, DIZZINESS Uncoded Allergies: hay fever (Allergy, Unknown, 09/24/16) COVID-19 Screening Contact w/high risk pt: No Recent Travel to affected area: No Experienced COVID-19 symptoms?: No Patient History Reviewed Nursing Documentation: PMH: Agreed; PSxH: Agreed Nursing Documentation-PMH Past Medical History: No History, Except For Hx Cardiac Problems: Yes - AFIB/ HEART ABLATION Hx Cancer: No Hx Gastrointestinal Problems: Yes - abdominal surgeries Hx Neurological Problems: No Review of Systems All Other Systems: negative except mentioned in HPI Physical Exam Vital Signs Date Time Temp Pulse Resp B/P (MAP) Pulse Ox O2 Delivery O2 Flow Rate FiO2 12/28/19 17:35 97.9 80 20 161/80 (107) 99 Room Air Sp02 EP Interpretation: reviewed, normal General Appearance: alert, GCS 15, non-toxic, moderate distress - crying in pain Head: normocephalic, atraumatic Eyes: bilateral eye normal inspection, bilateral eye PERRL ENT: hearing grossly normal, normal pharynx, no angioedema, normal voice Neck: full range of motion, supple/symm/no masses Respiratory: chest non-tender, lungs clear, normal breath sounds, speaking full sentences Cardiovascular #1: regular rate, rhythm, no edema Gastrointestinal: other - LLQ ttp with guarding and rebound, multiple healed abdominal surgical incision sites, open stoma site Rectal: deferred Genitourinary: normal inspection, no CVA tenderness Musculoskeletal: back normal, normal range of motion, no calf tenderness, gait/ station normal, non-tender Neurologic: alert, motor strength/tone normal, oriented x3, sensory intact, responsive, speech normal Psychiatric: judgement/insight normal, memory normal, mood/affect normal, no suicidal/homicidal ideation Skin: no rash Lymphatic: no adenopathy Medical Decision Making Diagnostic Impression: Primary Impression: Fistula Additional Impressions: Abscess Abdominal pain ER Course Dr. Cuevas called, he would like CT with IV and oral contrast. He wants nurse from [facility] to place a 28 [place] Vitale into the stoma do not inflate the balloon, taped to skin and attached to a regular bag. We are calling a nurse from [facility] to come to the emergency room to assist with this procedure At 0655 pm, RN from just left after placing vitale catheter. Patients pain improved from a 10 to 6. Requesting more pain medication. 4mg IV morphine ordered. Patient's pain controlled after 3 doses of 4 mg of IV morphine. Patient has been given 2 L of IV fluids. I discussed the CT results with Dr. Cuevas. He is requesting 3.375 mg of IV Zosyn as well as 600 mg of IV clindamycin.He wants patient admitted to [facility]. He will call for orders. Rhythm Strip Diag. Results Rhythm Strip Time: 18:37 EP Interpretation: yes - MD Christo Rate: 64 Rhythm: NSR, no PVC's, no ectopy Last Vital Signs Date Time Temp Pulse Resp B/P (MAP) Pulse Ox O2 Delivery O2 Flow Rate FiO2 12/28/19 17:35 97.9 80 20 161/80 (107) 99 Room Air Disposition: ADMITTED INPATIENT Condition: Critical Physician Consult: Dr. Cuevas, to admit to [facility]. Referrals: Vishnu Cuevas MD (PCP) Jess Villafuerte M.D. Dec 28, 2019 18:07
--- NOTE | 2019-12-28 18:10 | NUR ---
ED Nurse Note:pt. started taking oral contrast for CT abdomen, called [facility] for nurse to incert catheter in pt's pouch
[2019-12-28] MEDS ORDERED: AMBIEN5 MG ORAL (18:18)
[2019-12-28] MEDS ORDERED: TRAMADOL HCL50 MG ORAL (18:18)
[2019-12-28 18:29] LABS: ANION GAP 15 mmol/L (5-15); BLOOD UREA NITROGEN 21 mg/dL (7-18); CALCIUM 9.4 MG/DL (8.5-10.1); CARBON DIOXIDE 24 MMOL/L (21-32); CHLORIDE 103 MMOL/L (98-107); POTASSIUM 3.4 MMOL/L (3.5-5.1); SODIUM 142 MMOL/L (136-145)
[2019-12-28 18:32] LABS: ALANINE AMINOTRANSFERASE 54 U/L (12-78); ALBUMIN 3.9 G/DL (3.4-5.0); ALBUMIN/GLOBULIN RATIO 1.1 (1.0-2.7); ALKALINE PHOSPHATASE 119 U/L (46-116); ASPARTATE AMINO TRANSFERASE 23 U/L (15-37); BILIRUBIN,TOTAL 0.5 MG/DL (0.2-1.0)
--- NOTE | 2019-12-28 19:00 | NUR ---
ED Nurse Note:pt. received second dose of pain meds, she has catheter with dranage bag in abdominal pouch per PMD order
--- NOTE | 2019-12-28 19:11 | NUR ---
HAND-OFF: Report given to Mily.
--- NOTE | 2019-12-28 20:09 | NUR ---
ED Nurse Note: Pt to CT
--- NOTE | 2019-12-28 20:30 | NUR ---
ED Nurse Note: assissted to to restroom, urine sent to lab, pt reports increased pain, ERMD aware, waiting for orders
[2019-12-28] MEDS ORDERED: Morphine Sulfate 4mg/ml Inj (IV USE ONLY) IVP PRN ×2 (20:45)
[2019-12-28] MEDS ORDERED: Morphine Sulfate 4mg/ml Inj (IV USE ONLY) IVP STA (20:51)
--- NOTE | 2019-12-28 20:57 | Diagnostic Imaging Report ---
EXAM: CT Abdomen and Pelvis With Intravenous Contrast CLINICAL HISTORY: ABD PAIN TECHNIQUE: Axial computed tomography images of the abdomen and pelvis with intravenous contrast. CTDI is 4 mGy and DLP is 204 mGy-cm. One or more of the following dose reduction techniques were used: automated exposure control, adjustment of the mA and/or kV according to patient size, use of iterative reconstruction technique. COMPARISON: CT abdomen and pelvis dated 12/08/19. FINDINGS: Lung bases: Unremarkable. No mass. No consolidation. ABDOMEN: Liver: Unremarkable. No mass. Gallbladder and bile ducts: Unremarkable. No calcified stones. No ductal dilation. Pancreas: Unremarkable. No mass. No ductal dilation. Spleen: Unremarkable. No splenomegaly. Adrenals: Unremarkable. No mass. Kidneys and ureters: Mild right hydronephrosis and hydroureter. Tiny focus of decreased attenuation in the left kidney is too small to characterize by CT criteria. Stomach and bowel: Postsurgical changes seen within loops of intestine in the pelvis with ileostomy in the left lower quadrant which shows unchanged position of the catheter. Suture line identified within the loop of intestine in the right mid abdomen. On images 62 through 66 series 4 there is what appears to be a fistula tract versus abscess measuring 1.2 x 0.9 cm originated from a loop of intestine which extends anteriorly and appears to be blind-ending terminating in the midline deep to the rectus abdominis. This shows rim enhancement. There is a tiny focus of air anteriorly which raises concern for possible underlying infection. Scar tissue is seen anterior to this. No obstruction. PELVIS: Appendix: No findings to suggest acute appendicitis. Bladder: The urinary bladder is fluid-filled and distended. Reproductive: Unremarkable as visualized. Subperitoneal space: Resolution of previously seen presacral fluid collection. ABDOMEN and PELVIS: Intraperitoneal space: Unremarkable. No free air. No significant fluid collection. Bones/joints: Degenerative changes of the lumbar spine. No acute fracture. No dislocation. Soft tissues: Resolution of subcutaneous air in the midline abdomen with residual scarring present. This is in a location that the inferior portion of the previously seen surgical wound. Vasculature: Unremarkable. No abdominal aortic aneurysm. Lymph nodes: Unremarkable. No enlarged lymph nodes. Other findings: No abscess collection. IMPRESSION: 1. Resolution of previously seen presacral fluid collection as well as subcutaneous air in the lower abdomen and pelvis. 2. Suspect there is a 1.2 x 0.9 cm fistula tract versus abscess extending from a loop of intestine in the pelvis to the anterior midline abdominal wall. This appears to be blind-ending. However this shows rim enhancement as well as a small focus of air concerning for possible infection. 3. Mild right hydronephrosis and hydroureter. 4. Left lower quadrant ileostomy similar to prior study.
[2019-12-28] MEDS ORDERED: Piperacillin/Tazobactam 3.375 GM in NS 110 ML IVPB STA (21:03)
[2019-12-28 21:11] LABS: APPEARANCE,URINE CLEAR; BILIRUBIN, URINE NEGATIVE (NEGATIVE); COLOR,URINE PALE YELLOW; GLUCOSE, URINE (UA) NEGATIVE (NEGATIVE); KETONES,URINE NEGATIVE (NEGATIVE); LEUKOCYTE ESTERASE ,URINE NEGATIVE (NEGATIVE); NITRITE,URINE NEGATIVE (NEGATIVE); PH,URINE 8 (4.5-8.0); PROTEIN,URINE NEGATIVE (NEGATIVE); UROBILINOGEN,URINE NORMAL MG/DL (0.0-1.0)
[2019-12-28] MEDS: Clindamycin 600mg 50 ML IVPB ONE ×2 (21:15→22:59)
[2019-12-28] MEDS ORDERED: Ketorolac 30mg Inj IV PRN (21:15)
[2019-12-28 21:30] VITALS: BP 132/80
--- NOTE | 2019-12-28 21:40 | NUR ---
TRANSFER TO FLOOR: Patient transferred to as ordered, per Dr Bass. Report given to AURELIO Rojas . Belongings and medications given to . Family and or S/O informed of transfer.
[2019-12-28 21:45] VITALS: BP 160/91
--- NOTE | 2019-12-28 21:45 | NUR ---
NURSE NOTES: Arrived patient in the unit and received report from ER nurse Mily. Patient is a/o x4. c/o pain 10/10 and will give pain medication as ordered. Breathing is even and unlabored on room air. Abdomen is distended and ileostomy cath with bag is in place. IV site is intact and patent. Bed is lowest position. Call light within reach. Will continue to monitor.
[2019-12-28] MEDS: Clindamycin 600mg 50 ML IV SCH (22:00)
[2019-12-28 22:22] VITALS: BP 160/91
[2019-12-28] MEDS: PCA Morphine 1mg/ml 30 ML IV PRN (22:22)
[2019-12-28 22:37] VITALS: BP 160/91
[2019-12-29] VITALS (11 sets, daily range): BP systolic 95–155; BP diastolic 61–83
[2019-12-29] MEDS ORDERED: Piperacillin/Tazobactam 3.375 GM in NS 110 ML IVPB SCH ×2
[2019-12-29] MEDS: Piperacillin/Tazobactam 3.375 GM in D5W 110 ML IV SCH ×4 (00:45→22:43)
[2019-12-29] MEDS: PCA Morphine 1mg/ml 30 ML IV PRN ×2 (03:34→11:36)
[2019-12-29] MEDS: Clindamycin 600mg 50 ML IV SCH ×2 (05:29→17:00)
--- NOTE | 2019-12-29 07:00 | NUR ---
NURSE NOTES: Received report from massiel Brown a/a/o x4 laying in bed with no signs of distress or other issues at this time. pt stated that she "feels better than yesterday". 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 last syringe changed at 0334. 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 total urine: 500ml. navjot light within reach, bed in lowest position. side rales up x2. I will f/u as needed.
[2019-12-29 07:10] LABS: ALANINE AMINOTRANSFERASE 47 U/L (12-78); ALBUMIN 3.3 G/DL (3.4-5.0); ALKALINE PHOSPHATASE 91 U/L (46-116); ANION GAP 11 mmol/L (5-15); ASPARTATE AMINO TRANSFERASE 22 U/L (15-37); BILIRUBIN,TOTAL 0.6 MG/DL (0.2-1.0); BLOOD UREA NITROGEN 15 mg/dL (7-18); CALCIUM 8.5 MG/DL (8.5-10.1); CARBON DIOXIDE 24 MMOL/L (21-32); CHLORIDE 109 MMOL/L (98-107); POTASSIUM 4.7 MMOL/L (3.5-5.1); SODIUM 144 MMOL/L (136-145)
[2019-12-29 07:12] LABS: BASOPHILS % (AUTO) 1.5 % (0.0-2.0); EOSINOPHILS % (AUTO) 11.3 % (0.0-3.0); HEMATOCRIT 36.4 % (37.0-47.0); HEMOGLOBIN 12.7 G/DL (12.0-16.0); LYMPHOCYTES % (AUTO) 19.3 % (20.0-45.0); MEAN CORPUSCULAR VOLUME 89 FL (80-99); MONOCYTES % (AUTO) 6.1 % (1.0-10.0); NEUTROPHILS % (AUTO) 61.9 % (45.0-75.0); PLATELET COUNT 211 K/UL (150-450); RED BLOOD COUNT 4.06 M/UL (4.20-5.40); RED CELL DISTRIBUTION WIDTH 12.1 % (11.6-14.8); WHITE BLOOD COUNT 6.8 K/UL (4.8-10.8)
[2019-12-29] MEDS ORDERED: Rate Change PCA 1 Each MISC PRN ×2 (07:15→08:15)
[2019-12-29] MEDS ORDERED: PCA Education Pamphlet MISC SCH (07:15)
--- NOTE | 2019-12-29 07:28 | NUR ---
HAND-OFF: Report given to Erika CAREY. Patient in stable condition.
[2019-12-29] MEDS ORDERED: Lidocaine 1% Plain 30 ml INJ PRN ×2 (07:45→12:30)
[2019-12-29] MEDS ORDERED: Heparin1,000 units/500ml Premix(Conc:2 units/ml) IV PRN (07:45)
--- NOTE | 2019-12-29 08:22 | General Progress Note ---
Progress Note Progress Note H&P to be dictated. Admitted from ED last night with severe abdominal pain and CT scan revealing small intra-abdominal abscess possible fistula. Had been discharged 12/20/2019 after surgery for SBO on 11/27.with o No fever WBC normal Albumin 3.3 Abdomen mildly distended, soft, midline incision with small shallow open wound lower third with no drainage, and healing since discharge. Wound had been opened due to SQ air but no enterocutaneous fistula developed. No evidence clinically of abscess or cellulitis involving incision. Imp: Severe abdominal pain with intra-abdominal abscess and possible fisutla from intestine to below abdominal wall S/P total colectomy and Kock Pouch continent ileostomy with revisions, and surgery to release adhesive SBO on 11/28/19 Malnutrition Plan: STAT PICC STAT CT guided drainage of abdominal abscess ID follow-up re optimal antibiotics TPN, npo, f/u labs Vishnu Cuevas MD Dec 29, 2019 08:22
[2019-12-29] MEDS ORDERED: Dextrose 10% 1,000 ML IV PRN ×2 (09:00→20:00)
--- NOTE | 2019-12-29 09:37 | NUR ---
RD ASSESSMENT & RECOMMENDATIONS SEE CARE ACTIVITY FOR COMPLETE ASSESSMENT DAILY ESTIMATED NEEDS: Needs based on Recent surgery, 58kg 28-33 kcals/kg 6068-2088 total kcals 58-116 g protein/kg 54-108 g total protein 25-30 mL/kg 8265-6897 total fluid mLs NUTRITION DIAGNOSIS: Altered GI function r/t malfunctioning ileostomy as evidenced by s/p recent laparotomy with release of small bowel obstruction, and internal hernia with repair of enterotomy x2 and repair of access segment enterotomy, now readmitted w/ severe abdominal pain and CT scan revealing small intra-abdominal abscess possible fistula, NPO, TPN ordered. PARENTERAL NUTRITION RECOMMENDATIONS: D/AA Rate: 65 IL Rate: 9 Total Rate: 74 Volume: 1776 % Dextrose: 17 % AA: 5.2 Energy (kcals/kg): 1658 Protein (g/kg protein): 81 Nonprotein KCALS: 1334 GIR (mg CHO/kg/min): 3.2 % Fat KCALS: 26 NPC: N Ratio: 103:1 TPN Comment: - Rec D17% + AA 5.2% @65ml/hr w/ IL 20% @9ml/hr, all 3:1. - Start rate per MD. - TPN at goal provides 1658 kcal (29 kcal/kg) and 81g pro (1.4g/kg), meets 100% est needs when at goal. ADDITIONAL RECOMMENDATIONS: * OBTAIN AN UPDATED STANDING WEIGHT ABLE + WEEKLY STANDING WEIGHTS * MONITOR BGS, LFTS, LYTES ON TPN * Rec to Lower current D5 @125ml with TPN initiation to prevent hyperglycemia and liver failure . .
--- NOTE | 2019-12-29 10:21 | NUR ---
*-*INSURANCE*-* ALL AVAILABLE CLINICALS HAVE BEEN FAXED TO: ELZBIETA Albert/JANE PH: [phone] FAX: [phone]
--- NOTE | 2019-12-29 14:44 | NUR ---
NURSE NOTES: pt left the floor for CT guided drainage and PICC line placement. pt left the floor with no signs of distress or other issues at this time. I will f/u as needed.
--- NOTE | 2019-12-29 15:24 | Pre-Procedure Note/Attestation ---
Pre-Procedure Note/Attestation Complete Prior to Procedure Planned Procedure: not applicable Procedure Narrative: PICC Indications for Procedure Pre-Operative Diagnosis: needs long term care phlebotomist IV access Attestation I attest that I discussed the nature of the procedure; its benefits; risks and complications; and alternatives (and the risks and benefits of such alternatives ), prior to the procedure, with the patient (or the patient's legal technical account representative). I attest that, if there was a reasonable possibility of needing a blood transfusion, the patient (or the patient's legal technical account representative) was given the [facility] standardized written summary, pursuant to the [place] Blood Safety Act ([place] Health and Safety Code # 1645, as amended). I attest that I re-evaluated the patient just prior to the surgery and that there has been no change in the patient's H&P, except as documented below: Sandro Tidwell MD Dec 29, 2019 15:24
--- NOTE | 2019-12-29 15:25 | Pre-Procedure Note/Attestation ---
Pre-Procedure Note/Attestation Complete Prior to Procedure Planned Procedure: not applicable Procedure Narrative: aspiration of abdominal fluid collection Indications for Procedure Pre-Operative Diagnosis: abdominal abscess or fistula Attestation I attest that I discussed the nature of the procedure; its benefits; risks and complications; and alternatives (and the risks and benefits of such alternatives ), prior to the procedure, with the patient (or the patient's legal care support representative). I attest that, if there was a reasonable possibility of needing a blood transfusion, the patient (or the patient's legal care support representative) was given the [facility] standardized written summary, pursuant to the [place] Blood Safety Act ([place] Health and Safety Code # 1645, as amended). I attest that I re-evaluated the patient just prior to the surgery and that there has been no change in the patient's H&P, except as documented below: Sandro Tidwell MD Dec 29, 2019 15:25
--- NOTE | 2019-12-29 15:26 | Brief Operative Note ---
Immediate Post Operative Note Operative Note Pre-op Diagnosis: needs long-term IV access Procedure: PICC Post-op Diagnosis: same as pre-op Surgeon: Daphney Flor Anesthesia: local Specimen: none Complications: none Fluids: none Implant(s) used?: No Sandro Flor MD Dec 29, 2019 15:26
--- NOTE | 2019-12-29 16:10 | Brief Operative Note ---
Immediate Post Operative Note Operative Note Pre-op Diagnosis: abdominal abscess Procedure: CT guided aspiration Post-op Diagnosis: same as pre-op Surgeon: Daphney Flor Anesthesia: local Specimen: yes - 1 ml pus Complications: none Condition: stable Fluids: none Implant(s) used?: No Sandro Flor MD Dec 29, 2019 16:10
--- NOTE | 2019-12-29 16:30 | NUR ---
NURSE NOTES: pt is back to the floor with no signs of distress or other issues at this time. per report pt got out from aspiration procedure 1ml. pt was able to tolerate procedure with no issues. I will f/u as needed.
--- NOTE | 2019-12-29 16:38 | Diagnostic Imaging Report ---
Indication: Suspected abdominal wall abscess demonstrated on recent CT scan Technique: Prior imaging studies reviewed. Informed consent obtained prior to commencement of the procedure. Procedural timeout performed. Localizing spiral acquisitions obtained through the lower abdomen/upper pelvis. Intended puncture site sterilely prepped and draped. Local anesthesia with 1% lidocaine. Under CT guidance, an 18-gauge needle was directed toward a small gas bubble and marked the upper border of the target collection which is otherwise not well visualized on noncontrast CT. Approximately 1 mL of james pus was aspirated. Specimen sent to the lab for microbial analysis. Total dose length product 162 mGycm. CTDIvol(s) 19 mGy. Radiation dose was minimized using automated exposure control Comparison: 12/28/2019 Findings: Intraprocedural images document satisfactory needle placement with successful evacuation of the target gas bubble and associated purulent material Impression: Successful aspiration of tiny abdominal wall abscess, yielding 1 mL james pus, as described Procedure and findings discussed by phone with Dr. Cuevas The CT scanner at [facility] is accredited by the [employer] and the scans are performed using protocols designed to limit radiation exposure to as low as reasonably achievable to attain images of sufficient resolution adequate for diagnostic evaluation.
--- NOTE | 2019-12-29 16:50 | Diagnostic Imaging Report ---
Indications: Needs long-term IV access Technique: Ultrasound confirms patent compressible left basilic vein. Total sterile technique, including sterile probe cover and sterile gel, hat, mask, sterile gown, large sterile drape, and preparation with 2% chlorhexidine utilized. Local anesthesia with 1% lidocaine. Under real-time ultrasound guidance, puncture basilic vein using 21-gauge needle, documented and archived, passage 0.018 guidewire under direct fluoroscopy, which was used to determine appropriate catheter length, exchange for 4 Peruvian peel-away sheath. 4 Peruvian Bard dual-lumen power PICC cut to 43 cm. It was inserted through the peel-away sheath. Peel-away sheath and guidewire removed. Catheter fixed to the skin. Both catheter ports aspirated and flushed. Patient tolerated procedure well, without immediate complication. Digital radiograph documents satisfactory catheter tip position, at the cavoatrial junction. Total fluoroscopy time 17.8 seconds. Total dose area product [id number] mGym2 Total number of images: 3 Impression: Successful placement of left arm PICC under sonographic and fluoroscopic guidance, as described above.
--- NOTE | 2019-12-29 16:55 | NUR ---
RADIOLOGY NOTE: LEFT UPPER EXTREMITY PICC LINE PLACED BY DR. STACEY SON AT 1505 HRS. FA
--- NOTE | 2019-12-29 17:00 | Pre-op HX & Phy Repo 2 SIG ---
DATE OF ADMISSION: 12/28/2019 EMERGENCY ADMISSION FROM EMERGENCY DEPARTMENT HISTORY OF PRESENT ILLNESS: Admitted from emergency department in the evening of 12/28/2019 with severe abdominal pain, the patient is a 69-year-old female in overall good health with an original diagnosis of ulcerative colitis who has previously undergone proctocolectomy with Kock pouch continent ileostomy with multiple revisions, most recently in September 2018. Recently, she developed recurrent episodes of small bowel obstruction and underwent surgery on 11/28/2019 with release of adhesions and repair of internal hernia as well as repair of enterotomy x2 and repair of access segment enterotomy x1. Patient had a prolonged recovery from her surgery and was discharged on 12/20/2019 on a full liquid diet with supplements. She just recently started to advance her diet and on the day of admission she developed severe excruciating abdominal pain both steady and cramping in nature and I advised her to come to the emergency room. Her abdomen was distended and tender and CT scan of abdomen and pelvis was done with a catheter placed into her Kock pouch in the emergency room revealed a likely abscess, possible fistula from a loop of bowel to under the rectus abdominis musculature of the midline incision area. Patient had not had any fevers. She required intravenous morphine to relieve her pain. Once an indwelling catheter was placed into her Kock pouch for drainage, her pain subsided substantially. PAST MEDICAL HISTORY: MEDICATIONS: Occasional ibuprofen. When she has pouchitis, she takes Cipro and clindamycin. In the past, she had pouch inflammation with bleeding that resolved with oral Pentasa. She has also taken Myrbetriq for bladder spasms, but now takes baking soda with water instead. ALLERGIES TO MEDICATIONS: Flagyl and Ativan. OPERATIONS: In addition to the list at the end of this dictation, she has undergone knee and elbow surgery. REVIEW OF SYSTEMS: 1) Patient has a past history of atrial fibrillation and underwent cardiac ablation in 2012. 2) In January 2018, she developed a perineal pain syndrome and has been treated by Pain Management and injection therapy. PHYSICAL EXAMINATION: GENERAL: She is mildly dehydrated in appearance and moderately depleted in terms of overall nutritional status with a history of prolonged stay after complex intestinal surgery for recurring bowel obstructions. VITAL SIGNS: She is afebrile. Stable. HEENT: Within normal limits. LUNGS: Clear. HEART: Regular rhythm. BREASTS: Without masses. ABDOMEN: Soft with a long midline scar. The lower portion of the incision has a very shallow open wound. There is no cellulitis or evidence of abdominal wall abscess. There is no rebound tenderness. The stoma of the Kock pouch is low in the left lower quadrant with an indwelling 28-Korean Brock catheter to gravity drainage. PELVIC: Deferred. RECTAL: Status post proctectomy. EXTREMITIES: Without edema. NEUROLOGIC: Physiologic. IMPRESSION: 1. Severe abdominal pain with CT scan revealing early postoperative intra-abdominal abscess and possible fistula. 2. Mild dehydration based on presenting laboratory studies. 3. Mild malnutrition based on laboratory studies and history. 4. Status post multiple abdominal operations. 4.1. Proctocolectomy and Kock pouch in 1984. 4.2. Revision of Kock pouch valve in 1985. 4.3. Revision of Kock pouch stoma and stricture in 2007. 4.4. Revision of Kock pouch stoma and access segment in depth 09/25/2016 4.5. Laparotomy with creation of a new valve and stoma with preservation of the Kock pouch and relocation of the stoma to the left lower quadrant 2016 4.6. Laparotomy with revision of Kock pouch slipped valve 09/25/2018. 4.7. Laparotomy with release of early postoperative small bowel obstruction and segmental small bowel resection in right upper mid abdomen 10/13 4.8. Laparotomy with release of recurring small bowel obstruction with lysis of multiple adhesions and repair of internal hernia with repair of enterotomy x2 and repair of access segment enterotomy 11/28/2019. PLAN: Patient will be made NPO with continuous decompression of her Kock pouch continent ileostomy. She has been started on Zosyn and clindamycin intravenously, but will be seen by her Infectious Disease valuation consultant, who knows her from prior admission, Dr. De Santiago. Patient will require placement of a PICC line for nutritional support and TPN will be started as soon as possible. The abscess cavity will be aspirated by Interventional Radiology, who states that the abscess is too small to insert a drainage catheter. The specimen will be obtained visually to see if there is enteric fluid and sent for cultures. Patient will be ambulatory and pain controlled with morphine ENVIRONMENTAL ENGINEERING TECHNICIAN supplemented by intermittent Toradol as needed. I had a full discussion with the patient concerning her condition and the need for emergency admission and the plans. Vishnu Cuevas M.D. DR: BIBIANA JOB#: [id number] CC: MATT
[2019-12-29] MEDS ORDERED: NovoLOG Insulin Flexpen SUBQ SCH (18:00)
[2019-12-29] MEDS ORDERED: PCA shift volume MISC SCH (19:00)
[2019-12-29] MEDS: PCA shift volume MISC SCH (19:00)
--- NOTE | 2019-12-29 19:06 | Infectious Diseases Prog Note ---
Assessment/Plan Assessment/Plan Full consult dictated: A) 1) abdominal abscess 2) s/p drain 3) pmh noted 4) allergies - nkda P) 1) zosyn and vancomycin 2) check cultures, monitor labs 3) thank you Subjective Allergies: Coded Allergies: METRONIDAZOLE (Verified Allergy, Mild, 09/18/18) HEADACHE, DIZZINESS Uncoded Allergies: hay fever (Allergy, Unknown, 09/24/16) Objective Vital Signs Last 24 Hour Vital Signs Date Time Temp Pulse Resp B/P (MAP) Pulse Ox O2 Delivery O2 Flow Rate FiO2 12/29/19 17:38 98.0 12/29/19 16:00 81 18 94 12/29/19 15:58 87 18 12/29/19 12:06 98.0 12/29/19 12:00 98.0 82 20 124/67 (86) 98 12/29/19 11:40 81 18 94 12/29/19 09:00 Room Air 12/29/19 08:00 97.7 81 18 95/71 (79) 94 12/29/19 08:00 81 18 94 12/29/19 04:00 97.9 76 18 109/73 (85) 98 12/29/19 04:00 76 18 98 12/29/19 00:00 97.1 68 18 129/83 (98) 98 12/29/19 00:00 68 18 98 12/28/19 23:27 Room Air 12/28/19 22:22 76 20 99 12/28/19 21:45 98.5 76 20 160/91 (114) 99 12/28/19 21:40 97.9 80 20 144/86 99 Room Air 12/28/19 21:30 98.0 74 18 132/80 98 Room Air 12/28/19 21:29 97.9 12/28/19 19:34 97.9 Height (Feet): 5 Height (Inches): 4.00 Weight (Pounds): 140 Laboratory Tests Test 12/28/19 20:30 12/29/19 05:15 Urine Color Pale yellow Urine Appearance Clear Urine pH 8 (4.5-8.0) Urine Specific [place] 1.015 (1.005-1.035) Urine Protein Negative (NEGATIVE) Urine Glucose (UA) Negative (NEGATIVE) Urine Ketones Negative (NEGATIVE) Urine Blood Negative (NEGATIVE) Urine Nitrite Negative (NEGATIVE) Urine Bilirubin Negative (NEGATIVE) Urine Urobilinogen Normal MG/DL (0.0-1.0) Urine Leukocyte Esterase Negative (NEGATIVE) White Blood Count 6.8 K/UL (4.8-10.8) Red Blood Count 4.06 M/UL (4.20-5.40) L Hemoglobin 12.7 G/DL (12.0-16.0) Hematocrit 36.4 % (37.0-47.0) L Mean Corpuscular Volume 89 FL (80-99) Mean Corpuscular Hemoglobin 31.3 PG (27.0-31.0) H Mean Corpuscular Hemoglobin Concent 35.0 G/DL (32.0-36.0) Red Cell Distribution Width 12.1 % (11.6-14.8) Platelet Count 211 K/UL (150-450) Mean Platelet Volume 6.5 FL (6.5-10.1) Neutrophils (%) (Auto) 61.9 % (45.0-75.0) Lymphocytes (%) (Auto) 19.3 % (20.0-45.0) L Monocytes (%) (Auto) 6.1 % (1.0-10.0) Eosinophils (%) (Auto) 11.3 % (0.0-3.0) H Basophils (%) (Auto) 1.5 % (0.0-2.0) Prothrombin Time 10.7 SEC (9.30-11.50) Prothromb Time International Ratio 1.0 (0.9-1.1) Sodium Level 144 MMOL/L (136-145) Potassium Level 4.7 MMOL/L (3.5-5.1) Chloride Level 109 MMOL/L (98-107) H Carbon Dioxide Level 24 MMOL/L (21-32) Anion Gap 11 mmol/L (5-15) Blood Urea Nitrogen 15 mg/dL (7-18) Creatinine 1.0 MG/DL (0.55-1.30) Estimat Glomerular Filtration Rate 55.3 mL/min (>60) Glucose Level 112 MG/DL (74-106) H Calcium Level 8.5 MG/DL (8.5-10.1) Total Bilirubin 0.6 MG/DL (0.2-1.0) Aspartate Amino Transf (AST/SGOT) 22 U/L (15-37) Alanine Aminotransferase (ALT/SGPT) 47 U/L (12-78) Alkaline Phosphatase 91 U/L (46-116) Total Protein 6.7 G/DL (6.4-8.2) Albumin 3.3 G/DL (3.4-5.0) L Globulin 3.4 g/dL Albumin/Globulin Ratio 1.0 (1.0-2.7) Current Medications Medications (Trade) Dose Ordered Sig/[place] Route PRN Reason Start Time Stop Time Status Last Admin Dose Admin Acetaminophen (Tylenol) 650 mg Q4H PRN ORAL Mild Pain/Fever/STEEL 12/28/19 21:15 01/27/20 21:14 12/29/19 17:08 Barium Sulfate (Readi-Cat 2) 450 ml NOW PRN ORAL Radiology Procedure 12/28/19 17:45 12/30/19 17:37 Chlorhexidine Gluconate (Mohini-Hex 2%) 1 applic DAILY@2000 TOPIC 12/29/19 20:00 03/28/20 19:59 Clindamycin/ Sodium Chloride 50 ml @ 100 mls/hr Q8HR IV 12/28/19 22:00 01/04/20 21:59 12/29/19 17:00 Dextrose 1,000 ml @ 0 mls/hr Q24H PRN IV PN interrupted or unavailable 12/29/19 20:00 01/28/20 08:59 Dextrose (Dextrose 50%) 25 ml Q30M PRN IV Hypoglycemia 12/29/19 08:15 03/28/20 08:14 Dextrose (Dextrose 50%) 50 ml Q30M PRN IV Hypoglycemia 12/29/19 08:15 03/28/20 08:14 Dextrose/ Electrolytes 1,000 ml @ 50 mls/hr Q20H IV 12/29/19 20:00 01/28/20 19:59 Dextrose/ Electrolytes 1,000 ml @ 125 mls/hr Q8H IV 12/28/19 22:30 12/29/19 19:59 12/29/19 17:00 Diphenhydramine HCl (Benadryl) 25 mg Q4H PRN IV Itching/Pruritis 12/29/19 08:45 12/31/19 08:44 Fat Emulsion Intravenous 216 ml/Amino Acids/ Electrolytes/ Dextrose 1,776 ml @ 74 mls/hr Q24H IV 12/29/19 20:00 03/28/20 19:59 Heparin Sodium/ Sodium Chloride (Heparin 1000 units/500ml Premix) 1,000 unit ONCE PRN IV PICC LINE PLACEMENT 12/29/19 07:45 12/31/19 07:44 Insulin Aspart (NovoLOG) Q6HR SUBQ 12/30/19 00:00 03/29/20 00:00 Iohexol (OMNIPAQUE-300 100ml) 100 ml NOW PRN INJ Radiology Procedure 12/28/19 17:45 12/30/19 17:37 Ketorolac Tromethamine (Toradol 30mg) 30 mg Q6H PRN IV Breakthrough Pain 12/28/19 21:15 01/02/20 21:14 12/28/19 22:02 Lidocaine HCl (Xylocaine 1% 30ml) 30 ml ONCE PRN INJ PICC LINE PLACEMENT 12/29/19 07:45 12/31/19 07:44 Lidocaine HCl (Xylocaine 1% 30ml) 30 ml ONCE PRN INJ radiology procedure 12/29/19 12:30 12/31/19 12:29 Miscellaneous Medication (POUNCER Rate Change) 1 ea DAILY PRN MISC rate change 12/29/19 08:15 12/31/19 08:14 Miscellaneous Medication (POUNCER shift volume) 1 ea Q12HR@0700,1900 MISC 12/29/19 19:00 12/31/19 18:59 Morphine Sulfate 30 ml @ 0 mls/hr POUNCER Protocol PRN IV For Pain 12/29/19 08:45 12/31/19 08:44 12/29/19 11:36 Naloxone HCl (Narcan) 0.1 mg Q1M PRN IV RR<10/min OR SBP<90 mmHg 12/29/19 08:45 12/31/19 08:34 Ondansetron HCl (Zofran) 4 mg Q4HR PRN IVP Nausea & Vomiting 12/28/19 21:15 01/27/20 21:14 Piperacillin Sod/ Tazobactam Sod 3.375 gm/Dextrose 110 ml @ 27.5 mls/hr EVERY 8 HOURS IV 12/29/19 00:00 01/02/20 23:59 12/29/19 17:00 Hazel De Santiago MD Dec 29, 2019 19:06
[2019-12-29] MEDS ORDERED: Vancomycin 1.25gm/NS Premix IVPB ONE (19:30)
--- NOTE | 2019-12-29 19:33 | NUR ---
HAND-OFF: Report given to Yaa CAREY, pt in stable condition. - CT aspiration out put: 1ml I&O"s ileostomy: 100-80=20ml Urine: 1400 intake: NPO
--- NOTE | 2019-12-29 19:34 | NUR ---
NURSE NOTES: Received report from AURELIO James.
--- NOTE | 2019-12-29 20:19 | NUR ---
NURSE NOTES: Patient resting in bed, no distress noted, ileo patent, intact. PICC in CLARISSE intact and patent. Patient c/o dry mouth, oral care done.Call light and WEDDING DECORATOR button within reach, bed in low position, locked, side rails up x2, will continue to monitor.
[2019-12-29] MEDS: Fat Emulsion Iv 20% 216 ML in Tpn 1,560 ML IV SCH (20:33)
[2019-12-29] MEDS: Dyna-Hex 2% Top Sol 2oz TOPIC SCH (20:35)
[2019-12-29] MEDS ORDERED: Fat Emulsion Iv 20% 250 ML IV SCH (21:00)
[2019-12-30] VITALS: BP 141/76
[2019-12-30] MEDS: NovoLOG Insulin Flexpen SUBQ SCH ×4 (00:01→18:26)
--- NOTE | 2019-12-30 00:15 | Consultation ---
DATE OF CONSULTATION: 12/29/2019 INFECTIOUS DISEASE CONSULTATION CONSULTING PHYSICIAN: Hazel De Santiago M.D. ATTENDING PHYSICIAN: Vishnu Cuevas M.D. REFERRING PHYSICIAN: Vishnu Cuevas M.D. REASON FOR CONSULTATION: Abdominal wall abscess including abdominal wall, most likely intraabdominal abscess. CHIEF COMPLAINT: Patient's chief complaint coming to the hospital is abdominal pain. HISTORY OF PRESENT ILLNESS: This is a 69-year-old female who presented to [facility] with abdominal pain. Patient has a history of ulcerative colitis and history of Kock pouch continent ileostomy who had recent bowel obstruction and underwent a laparotomy in November. Patient eventually improved and was discharged and now comes back with abdominal pain. CT scan of the abdomen and pelvis showed the following. It showed resolution of presacral fluid collection. They suspected there was a fistula tract versus abscess extending into the intestine and pelvis and abdominal wall. Patient is status post drainage procedure. Infectious Disease consulted requested for antibiotic management. Cultures are pending. Patient was placed on Zosyn and Vanco. I have discontinued the clindamycin. REVIEW OF SYSTEMS: CONSTITUTIONAL: Main issue coming in was abdominal pain. She has no fever. No chills. HEAD AND NECK: No head pain or neck pain. CARDIAC: No chest pain. GASTROINTESTINAL: No abdominal pain. No nausea or vomiting currently. GENITOURINARY: She has no Brock. PULMONARY: No shortness of breath. SKIN: No rash. NEUROLOGIC: No seizures. PAST MEDICAL HISTORY: Includes the following. Patient has a past medical history of bowel obstruction, history of Kock pouch continent ileostomy, history of proctocolectomy, ulcerative colitis, multiple revisions of multiple abdominal surgeries, adhesions, status post laparotomy. ALLERGIES: Metronidazole and hay fever. SOCIAL HISTORY: Negative for smoking, alcohol, or drug abuse. FAMILY HISTORY: Noncontributory. MEDICATIONS: Upon reviewing the MAR, patient is on following medications. She is on insulin, chlorhexidine, IV fluids. She is on lidocaine, morphine, diphenhydramine, naloxone, heparin. Antibiotics, Vanco and Zosyn. I stopped the clindamycin. She is on ketorolac, acetaminophen, Zofran. Outside medications noted and reconciliated. PHYSICAL EXAMINATION: VITAL SIGNS: Temperature is 98.0, pulse rate 81, respiratory rate 18, saturation 94%, blood pressure 124/67. GENERAL: Alert, responsive. No acute distress. HEAD AND NECK: Oral exam, no thrush. Eye exam, no icterus. Normocephalic. Neck is supple. No JVD. HEART: Regular. No gallop or murmur. ABDOMEN: Soft. Positive bowel sounds. Less tenderness after drainage procedure. LUNGS: Clear bilaterally. No rhonchi or rales. SKIN: No rash. MUSCULOSKELETAL: No effusion. LINE SITES: Without phlebitis. PERIPHERAL VASCULAR: No cyanosis or gangrene. GENITOURINARY: No Brock. NEUROLOGIC: Alert and oriented. LABORATORY DATA: White count 6.8, hemoglobin 12.7. Creatinine 1.0. UA was negative. CT scan of the abdomen and pelvis again showed fistula tract with abscess extending into loop of intestine and pelvis and abdominal wall. Drainage cultures are pending. ASSESSMENT AND PLAN: 1. Patient has abdominal abscess, which includes abdominal wall abscess and intraabdominal abscess. Patient is status post drainage procedure. At this time, I will continue Vanco and Zosyn for MRSA and gram-negative anaerobic coverage. Continue Vanco and Zosyn for abdominal abscess including abdominal wall abscess, intra-abdominal abscess. Check cultures. Patient is status post drainage procedure. There is improvement in pain after the drainage. 2. Abdominal pain. 3. Patient has a history of Kock pouch continent ileostomy and history of multiple abdominal surgeries. 4. History of proctocolectomy. 5. History of ulcerative colitis. 6. History of bowel obstruction and adhesions, status post laparotomy and repair. 7. Status post drainage procedure. 8. Allergies to Flagyl and hay fever. 9. Social history negative. 10. Family history noncontributory. 11. MAR was noted. 12. Case discussed with RN. 13. Case discussed with patient. 14. Case communicated with Dr. Vishnu Cuevas. 15. Continue treatment per Dr. Vishnu Cuevas. Hazel De Santiago M.D. DR: RYAN JOB#: [id number] CC: MATT
[2019-12-30] MEDS: PCA Morphine 1mg/ml 30 ML IV PRN (03:06)
--- NOTE | 2019-12-30 03:15 | NUR ---
NURSE NOTES: FOOD DEHYDRATOR OPERATOR syringe and tubing changed. Disposed of 2 ml left in syringe.
[2019-12-30 04:00] VITALS: BP 143/74
--- NOTE | 2019-12-30 06:00 | NUR ---
NURSE NOTES: 12 hour output: urine: 2200 ileo: 200 - 80= 120 true ileo
[2019-12-30] MEDS: Piperacillin/Tazobactam 3.375 GM in D5W 110 ML IV SCH ×3 (06:08→21:38)
[2019-12-30 06:41] LABS: BASOPHILS % (AUTO) 0.8 % (0.0-2.0); EOSINOPHILS % (AUTO) 6.1 % (0.0-3.0); HEMATOCRIT 34.5 % (37.0-47.0); HEMOGLOBIN 11.9 G/DL (12.0-16.0); LYMPHOCYTES % (AUTO) 7.4 % (20.0-45.0); MEAN CORPUSCULAR VOLUME 89 FL (80-99); MONOCYTES % (AUTO) 4.7 % (1.0-10.0); PLATELET COUNT 173 K/UL (150-450); RED BLOOD COUNT 3.87 M/UL (4.20-5.40); RED CELL DISTRIBUTION WIDTH 11.9 % (11.6-14.8); WHITE BLOOD COUNT 10.6 K/UL (4.8-10.8)
[2019-12-30] MEDS: PCA shift volume MISC SCH ×2 (07:00→19:27)
[2019-12-30 07:22] LABS: ALANINE AMINOTRANSFERASE 37 U/L (12-78); ALBUMIN 2.9 G/DL (3.4-5.0); ALBUMIN/GLOBULIN RATIO 0.9 (1.0-2.7); ALKALINE PHOSPHATASE 78 U/L (46-116); ANION GAP 7 mmol/L (5-15); ASPARTATE AMINO TRANSFERASE 22 U/L (15-37); BILIRUBIN,TOTAL 0.7 MG/DL (0.2-1.0); BLOOD UREA NITROGEN 9 mg/dL (7-18); CALCIUM 8.9 MG/DL (8.5-10.1); CARBON DIOXIDE 27 MMOL/L (21-32); CHLORIDE 103 MMOL/L (98-107); CREATININE 0.8 MG/DL (0.55-1.30); PHOSPHORUS 2.6 MG/DL (2.5-4.9); POTASSIUM 4.1 MMOL/L (3.5-5.1); SODIUM 137 MMOL/L (136-145)
--- NOTE | 2019-12-30 07:30 | NUR ---
HAND-OFF: Report given to AURELIO Edwards.
--- NOTE | 2019-12-30 07:45 | NUR ---
NURSE NOTES: Received report from Yaa CAREY. Patient is awake and oriented, no acute distress noted, reporting abdominal pain rated 5/10, FINISHER OPERATOR running per order. IVF and TPN running per order. Ileo to gravity drainage, BSC at bedside. Patient updated on plan of care for the day. Side rails upx2, bed low and locked, call light within reach.
[2019-12-30 08:00] VITALS: BP 136/73
[2019-12-30] MEDS ORDERED: Naloxone 0.4mg/ml Inj IV PRN (08:42)
[2019-12-30] MEDS ORDERED: Rate Change PCA 1 Each MISC PRN (08:45)
[2019-12-30] MEDS ORDERED: PCA Morphine 1mg/ml 30 ML IV PRN ×2 (08:48→18:15)
--- NOTE | 2019-12-30 08:59 | General Progress Note ---
Progress Note Progress Note AVSS Having nausea and dry heaves. Abdominal bloating is less and pain is less. Now on Zosyn + Vancomycin per ID Abdomen mildly distended, soft, incision wound clean no drainage Urine 3600 BCIR ileo 140 WBC 10,600 Hgb 11.9 Mg 1.8 Phos [address] guided aspiration of abdomen revealed 1cc of pus - sent for C&S Imp: Intra-abdominal abscess, rule-out evolving fistula Malnutrition Plan: NPO, TPN, continuous drainage of Kock Pouch continent ileostomy Ambulate 3x daily continue WEIGHER PRODUCTION morphine Vishnu Cuevas MD Dec 30, 2019 08:59
[2019-12-30] MEDS ORDERED: Vancomycin 750mg/NS 275ml IVPB SCH ×4 (09:00→17:00)
[2019-12-30] MEDS: Metoclopramide 10mg/2ml Inj IVP SCH ×3 (09:50→21:39)
[2019-12-30] MEDS ORDERED: Potassium Phosphate 20 MM in NS 275 ML IV ONE (11:00)
[2019-12-30 12:00] VITALS: BP 114/70
--- NOTE | 2019-12-30 13:18 | NUR ---
CASE MANAGEMENT: INITIAL REVIEW 69YR OLD FEMALE FROM HOME CC:ABDOMINAL PAIN SI:FISTULA . ABSCESS . ABDOMINAL PAIN 97.8 80 20 161/80 99% ON RA K+ 3.4 IS:IVF NS BOLUS X1 IV MORPHINE SULFATE X3 IV ZOFRAN X2 CT ABD/PEL - Fistula tract versus abscess extending from a loop of intestine in the pelvis to the anterior midline abdominal wall. Right hydronephrosis and hydroureter. \: 3E MED SURG UNIT DCP: HOME WHEN STABLE PLAN: SURGERY EVAL PICC PLACEMENT IN AM CASE MANAGEMENT: REVIEW 12/29/19 SI:FISTULA . ABSCESS . ABDOMINAL PAIN 97.7 81 18 95/71 94% ON RA ALB 3.3 CL 109 IS:IV ZOSYN Q8HR IV TPN Q24HR IV TORADOL Q6HR/PRN PICC LINE- SUCCESSFUL CT GUIDED DRAIN PLACEMENT CATH- Successful aspiration of tiny abdominal wall abscess, yielding 1 mL james pus \: 3E MED SURG UNIT DCP: HOME WHEN STABLE CASE MANAGEMENT: REVIEW 12/30/19 SI:FISTULA . ABSCESS . ABDOMINAL PAIN 97.7 81 18 95/71 94% ON RA ALB 3.3 CL 109 IS:IV K/PHOS/NS X1 IV MG SULFATE X2 BAGS IV D5@20ML/HR IV ZOSYN Q8HR IV TPN Q24HR IV TORADOL Q6HR/PRN \: 3E MED SURG UNIT DCP: HOME WHEN STABLE PLAN: START ON KELP GATHERER MORPHINE START ON VANCO NPO CONTINUOUS DRAINAGE OF KOCK POUCH CONTINENT ILEOSTOMY AMBULATE X3DAY
[2019-12-30 15:57] VITALS: BP 129/67
--- NOTE | 2019-12-30 18:19 | NUR ---
NURSE NOTES: Discontinued continuous rate on CENTER REP per MD order, witnessed by Esau CAREY.
--- NOTE | 2019-12-30 18:30 | NUR ---
NURSE NOTES: Total ileo output for shift: +270mL Total urine output: 1050mL Patient ambulated in hallway several times, pain well managed with VENEER SUPERVISOR.
--- NOTE | 2019-12-30 19:27 | NUR ---
HAND-OFF: Report given to Yaa CAREY.
--- NOTE | 2019-12-30 19:28 | NUR ---
NURSE NOTES: Received report from AURELIO Edwards. Patient ambulating in hallway with , steady gait, no dizziness. Will continue to monitor.
[2019-12-30] MEDS: Dyna-Hex 2% Top Sol 2oz TOPIC SCH (19:50)
[2019-12-30] MEDS: Vancomycin 1.5gm/NS Premix IVPB SCH (19:57)
[2019-12-30] MEDS: Fat Emulsion Iv 20% 216 ML in Tpn 1,560 ML IV SCH (19:58)
[2019-12-30 20:00] VITALS: BP 144/83
--- NOTE | 2019-12-30 20:00 | NUR ---
NURSE NOTES: Patient resting in bed, no distress noted. at bedside. PICC line intact and patent infusing TPN and FERMENTATION MANAGER/IVF. Ileo to drainage bag, intact and patent. Abd dressing d/i. Patient expresses feeling a bit depressed, denies past hx of depression. Encouraged verbalization of feelings. Will continue to monitor. Bed in low position, locked, side rails up x2, call light and FERMENTATION MANAGER button within reach.
[2019-12-30] MEDS: DiphenhydrAMINE 50mg/ml Inj IV PRN (21:38)
[2019-12-31] VITALS: BP 136/79
[2019-12-31] MEDS: NovoLOG Insulin Flexpen SUBQ SCH ×4 (00:12→17:32)
[2019-12-31] MEDS: Metoclopramide 10mg/2ml Inj IVP SCH ×4 (03:07→20:46)
[2019-12-31] MEDS: Piperacillin/Tazobactam 3.375 GM in D5W 110 ML IV SCH ×2 (05:42→13:54)
--- NOTE | 2019-12-31 06:00 | NUR ---
NURSE NOTES: 12 hr output: urine: 1400 cc ileo: 450-80= 370 true ileo 24 hr output: urine: 2450 cc ileo: 640 cc
[2019-12-31 06:13] LABS: BASOPHILS % (AUTO) 1.5 % (0.0-2.0); EOSINOPHILS % (AUTO) 13.6 % (0.0-3.0); HEMATOCRIT 33.9 % (37.0-47.0); HEMOGLOBIN 12.1 G/DL (12.0-16.0); LYMPHOCYTES % (AUTO) 19.6 % (20.0-45.0); MEAN CORPUSCULAR VOLUME 89 FL (80-99); MONOCYTES % (AUTO) 6.4 % (1.0-10.0); NEUTROPHILS % (AUTO) 58.9 % (45.0-75.0); PLATELET COUNT 166 K/UL (150-450); RED BLOOD COUNT 3.83 M/UL (4.20-5.40); RED CELL DISTRIBUTION WIDTH 11.8 % (11.6-14.8); WHITE BLOOD COUNT 6.3 K/UL (4.8-10.8)
[2019-12-31 06:15] LABS: ALANINE AMINOTRANSFERASE 32 U/L (12-78); ALBUMIN 2.8 G/DL (3.4-5.0); ALBUMIN/GLOBULIN RATIO 0.8 (1.0-2.7); ALKALINE PHOSPHATASE 70 U/L (46-116); ANION GAP 7 mmol/L (5-15); ASPARTATE AMINO TRANSFERASE 19 U/L (15-37); BILIRUBIN,TOTAL 0.3 MG/DL (0.2-1.0); BLOOD UREA NITROGEN 12 mg/dL (7-18); CALCIUM 8.9 MG/DL (8.5-10.1); CARBON DIOXIDE 27 MMOL/L (21-32); CHLORIDE 106 MMOL/L (98-107); CREATININE 0.7 MG/DL (0.55-1.30); PHOSPHORUS 3.5 MG/DL (2.5-4.9); SODIUM 140 MMOL/L (136-145)
--- NOTE | 2019-12-31 07:10 | NUR ---
NURSE NOTES: Ambulating in hallway, steady gait.
[2019-12-31] MEDS: PCA shift volume MISC SCH ×2 (07:16→19:29)
--- NOTE | 2019-12-31 07:25 | NUR ---
HAND-OFF: Report given to AURELIO Edwards. Rounds done.
--- NOTE | 2019-12-31 07:30 | NUR ---
NURSE NOTES: Received report from Yaa CAREY. Patient is awake and oriented, no acute distress noted, reporting mild abdominal pain rated 2/10. HAULAGE ENGINE OPERATOR settings checked and verified against order. Ileo to gravity drainage, BSC at bedside. CLARISSE PICC intact, patent, running IVF and TPN per order. Patient updated on plan of care for the day. Side rails up x2, bed low and locked, call light within reach.
[2019-12-31 08:00] VITALS: BP 128/80
[2019-12-31] MEDS ORDERED: Naloxone 0.4mg/ml Inj IV PRN (09:35)
[2019-12-31] MEDS ORDERED: PCA Morphine 1mg/ml 30 ML IV PRN (09:37)
[2019-12-31] MEDS ORDERED: Rate Change PCA 1 Each MISC PRN (09:45)
--- NOTE | 2019-12-31 09:51 | General Progress Note ---
Progress Note Progress Note AVSS Feeling much better with nausea/retching resolved, and pain resolving. Continuous infusion of Morphine [facility] d/c'd last evening - demand dose only Abdomen soft, slight distention, non-tender, lower pole of incision slight erythema/healing wound - non-tender Urine 2450 Kock pouch ileo 640 WBC 6300 albumin 2.8 Imp: Intra-abdominal abscess, presenting with acute abdominal pain 4 weeks post- op release of SBO with repairs of enterotomies Plan: continue IV antibiotics (C&S pending) per ID, maintain npo, TPN, continuous drainage of Kock pouch Vishnu Cuevas MD Dec 31, 2019 09:51
--- NOTE | 2019-12-31 10:51 | NUR ---
CASE MANAGEMENT: REVIEW 12/31/19 SI:FISTULA . ABSCESS . ABDOMINAL PAIN . WOUND CX: ENTEROBACTER AEROGENES 99.0 72 16 146/79 98% ON RA BG 123 ALBUMIN 2.8 IS:IV K/PHOS/NS X1 IV MG SULFATE X2 BAGS IV D5@20ML/HR IV ZOSYN Q8HR IV TPN Q24HR IV TORADOL Q6HR/PRN \: 3E MED SURG UNIT DCP: HOME WHEN STABLE PLAN: CONT TPN CONT VANCO CONT NPO CONTINUOUS DRAINAGE OF KOCK POUCH CONTINENT ILEOSTOMY AMBULATE X3DAY C&S -PENDING
--- NOTE | 2019-12-31 10:54 | NUR ---
RADIOLOGY DEPT., ABDOMEN X-RAY DONE.-P.DYE
--- NOTE | 2019-12-31 11:54 | Diagnostic Imaging Report ---
Indication: Abdominal distention Technique: Supine view of the abdomen Comparison: 12/03/2019 Findings: Previously demonstrated skin emil are no longer evident. Surgical anastomotic staple lines consistent with known continent ileostomy are seen within the pelvis. Small bowel loops are slightly prominent, gas-filled, but not frankly dilated and definitely less distended than on the prior study. Degenerative changes of the lower lumbar spine are noted. Impression: Findings as noted. No definite acute process
[2019-12-31 12:00] VITALS: BP 120/72
--- NOTE | 2019-12-31 12:10 | NUR ---
*-*INSURANCE*-* ALL AVAILABLE CLINICALS/REVIEW HAVE BEEN FAXED TO: ELZBIETA Albert/JANE PH: [phone] FAX: [phone]
[2019-12-31 16:00] VITALS: BP 134/77
[2019-12-31] MEDS: Ertapenem 1gm in NS 55ml IVPB SCH (17:25)
--- NOTE | 2019-12-31 18:36 | NUR ---
NURSE NOTES: Total ileo output for shift: +620mL Total urine output: 1200mL Patient ambulated in hallway several times during shift, pain is well managed with SCHOOL CROSSING GUARD.
--- NOTE | 2019-12-31 19:25 | Infectious Diseases Prog Note ---
Assessment/Plan Assessment/Plan ASSESSMENT AND PLAN: 1. enterobacter/gram + intra-abdominal abscess - - s/p aspiration - change to ertapenem and vancomycin - check final ID of gram + organism - monitor labs - communicated with Dr. Cuevas - clinically improved with less abdominal pain 2. Abdominal pain. 3. Patient has a history of Kock pouch continent ileostomy and history of multiple abdominal surgeries. 4. History of proctocolectomy. 5. History of ulcerative colitis. 6. History of bowel obstruction and adhesions, status post laparotomy and repair. 7. Status post drainage procedure. 8. Allergies to Flagyl and hay fever. 9. Social history negative. 10. Family history noncontributory. 11. MAR was noted. 12. Case discussed with RN. 13. Case discussed with patient. 14. Case communicated with Dr. Vishnu Cuevas. 15. Continue treatment per Dr. Vishnu Cuevas. Subjective Constitutional: Denies: fever HEENT: Denies: congestion Respiratory: Denies: shortness of breath Cardiovascular: Denies: chest pain Gastrointestinal/Abdominal: Reports: other - less abdominal pain ; Denies: nausea, vomiting Neurologic: Denies: headache Psychiatric: Denies: depression Skin: Denies: rash Hematologic: Denies: bleeding Musculoskeletal: Reports: pain - less Allergies: Coded Allergies: METRONIDAZOLE (Verified Allergy, Mild, 09/18/18) HEADACHE, DIZZINESS Uncoded Allergies: hay fever (Allergy, Unknown, 09/24/16) Objective Vital Signs Last 24 Hour Vital Signs Date Time Temp Pulse Resp B/P (MAP) Pulse Ox O2 Delivery O2 Flow Rate FiO2 12/31/19 16:00 97.8 74 16 134/77 (96) 100 12/31/19 16:00 16 12/31/19 12:00 98.2 71 16 120/72 (88) 97 12/31/19 12:00 16 12/31/19 09:00 Room Air 12/31/19 08:00 98.2 70 16 128/80 (96) 97 12/31/19 08:00 16 12/31/19 07:00 97 Room Air 21 12/31/19 04:00 72 18 97 12/31/19 00:00 99.0 72 16 136/79 (98) 98 12/31/19 00:00 72 16 98 12/30/19 21:00 Room Air 12/30/19 20:00 71 17 98 12/30/19 20:00 98.3 71 17 144/83 (103) 98 12/30/19 19:50 96 Room Air 21 Height (Feet): 5 Height (Inches): 4.00 Weight (Pounds): 124 General Appearance: no acute distress HEENT: normocephalic, atraumatic, anicteric, PERRL Respiratory/Chest: chest wall non-tender, lungs clear, normal breath sounds, no respiratory distress, no accessory muscle use Cardiovascular: normal rate, regular rhythm, no gallop/murmur, no JVD Abdomen: normal bowel sounds, soft, non tender, no organomegaly, non distended Genitourinary: other - no vitale Extremities: no cyanosis Skin: no rash Neurologic/Psychiatric: computing tutor II-XII grossly normal, alert, oriented x 3, responsive Lymphatic: no neck adenopathy Musculoskeletal: no effusion Objective CT abdomen and pelvis: IMPRESSION: 1. Resolution of previously seen presacral fluid collection as well as subcutaneous air in the lower abdomen and pelvis. 2. Suspect there is a 1.2 x 0.9 cm fistula tract versus abscess extending from a loop of intestine in the pelvis to the anterior midline abdominal wall. This appears to be blind-ending. However this shows rim enhancement as well as a small focus of air concerning for possible infection. 3. Mild right hydronephrosis and hydroureter. 4. Left lower quadrant ileostomy similar to prior study. Microbiology Date/Time Source Procedure Growth Status 12/29/19 16:05 Abdominal Abscess Anaerobic Culture - Preliminary Resulted 12/29/19 06:05 Abdomen Gram Stain - Final Resulted 12/29/19 06:05 Wound Culture - Preliminary Enterobacter Aerogenes Gram Positive Cocci Resulted Laboratory Tests Test 12/31/19 04:40 White Blood Count 6.3 K/UL (4.8-10.8) Red Blood Count 3.83 M/UL (4.20-5.40) L Hemoglobin 12.1 G/DL (12.0-16.0) Hematocrit 33.9 % (37.0-47.0) L Mean Corpuscular Volume 89 FL (80-99) Mean Corpuscular Hemoglobin 31.6 PG (27.0-31.0) H Mean Corpuscular Hemoglobin Concent 35.7 G/DL (32.0-36.0) Red Cell Distribution Width 11.8 % (11.6-14.8) Platelet Count 166 K/UL (150-450) Mean Platelet Volume 6.0 FL (6.5-10.1) L Neutrophils (%) (Auto) 58.9 % (45.0-75.0) Lymphocytes (%) (Auto) 19.6 % (20.0-45.0) L Monocytes (%) (Auto) 6.4 % (1.0-10.0) Eosinophils (%) (Auto) 13.6 % (0.0-3.0) H Basophils (%) (Auto) 1.5 % (0.0-2.0) Sodium Level 140 MMOL/L (136-145) Potassium Level 4.0 MMOL/L (3.5-5.1) Chloride Level 106 MMOL/L (98-107) Carbon Dioxide Level 27 MMOL/L (21-32) Anion Gap 7 mmol/L (5-15) Blood Urea Nitrogen 12 mg/dL (7-18) Creatinine 0.7 MG/DL (0.55-1.30) Estimat Glomerular Filtration Rate > 60 mL/min (>60) Glucose Level 123 MG/DL (74-106) H Calcium Level 8.9 MG/DL (8.5-10.1) Phosphorus Level 3.5 MG/DL (2.5-4.9) Magnesium Level 2.1 MG/DL (1.8-2.4) Total Bilirubin 0.3 MG/DL (0.2-1.0) Aspartate Amino Transf (AST/SGOT) 19 U/L (15-37) Alanine Aminotransferase (ALT/SGPT) 32 U/L (12-78) Alkaline Phosphatase 70 U/L (46-116) Total Protein 6.2 G/DL (6.4-8.2) L Albumin 2.8 G/DL (3.4-5.0) L Globulin 3.4 g/dL Albumin/Globulin Ratio 0.8 (1.0-2.7) L Current Medications Medications (Trade) Dose Ordered Sig/[place] Route PRN Reason Start Time Stop Time Status Last Admin Dose Admin Acetaminophen (Tylenol) 650 mg Q4H PRN ORAL Mild Pain/Fever/STEEL 12/28/19 21:15 01/27/20 21:14 12/30/19 15:36 Chlorhexidine Gluconate (Mohini-Hex 2%) 1 applic DAILY@2000 TOPIC 12/29/19 20:00 03/28/20 19:59 12/30/19 19:50 Dextrose 1,000 ml @ 0 mls/hr Q24H PRN IV PN interrupted or unavailable 12/29/19 20:00 01/28/20 08:59 Dextrose (Dextrose 50%) 25 ml Q30M PRN IV Hypoglycemia 12/29/19 08:15 03/28/20 08:14 Dextrose (Dextrose 50%) 50 ml Q30M PRN IV Hypoglycemia 12/29/19 08:15 03/28/20 08:14 Dextrose/ Electrolytes 1,000 ml @ 20 mls/hr Q24H IV 12/30/19 08:48 01/29/20 08:47 12/31/19 08:15 Diphenhydramine HCl (Benadryl) 25 mg Q4H PRN IV Itching/Pruritis 12/30/19 08:48 01/29/20 08:47 12/30/19 21:38 Ertapenem 1 gm/ Sodium Chloride 55 ml @ 110 mls/hr Q24H IVPB 12/31/19 17:00 01/05/20 16:59 12/31/19 17:25 Fat Emulsion Intravenous 216 ml/Amino Acids/ Electrolytes/ Dextrose 1,776 ml @ 74 mls/hr Q24H IV 12/29/19 20:00 03/28/20 19:59 12/30/19 19:58 Insulin Aspart (NovoLOG) Q6HR SUBQ 12/30/19 00:00 03/29/20 00:00 12/31/19 00:12 Ketorolac Tromethamine (Toradol 30mg) 30 mg Q6H PRN IV Breakthrough Pain 12/31/19 09:38 01/05/20 09:37 Metoclopramide HCl (Reglan) 10 mg Q6H IVP 12/30/19 09:00 01/29/20 08:59 12/31/19 15:12 Miscellaneous Medication (NETWORK PROFESSIONAL Rate Change) 1 ea DAILY PRN MISC rate change 12/31/19 09:45 01/02/20 09:44 Miscellaneous Medication (NETWORK PROFESSIONAL shift volume) 1 ea Q12HR@0700,1900 MISC 12/31/19 19:00 01/02/20 18:59 Morphine Sulfate 30 ml @ 0 mls/hr NETWORK PROFESSIONAL Protocol PRN IV For Pain 12/31/19 09:37 01/02/20 09:36 Naloxone HCl (Narcan) 0.1 mg Q1M PRN IV RR<10/min OR SBP<90 mmHg 12/31/19 09:35 01/02/20 09:22 Ondansetron HCl (Zofran) 4 mg Q4HR PRN IVP Nausea & Vomiting 12/28/19 21:15 01/27/20 21:14 12/30/19 03:27 Vancomycin HCl (Vanco rx to dose) 1 ea DAILY PRN MISC Per rx protocol 12/29/19 18:45 01/28/20 18:44 Vancomycin/Sodium Chloride 275 ml @ 137.5 mls/ hr Q24H IVPB 12/30/19 20:00 01/04/20 19:59 12/30/19 19:57 Hazel De Santiago MD Dec 31, 2019 19:25
--- NOTE | 2019-12-31 19:29 | NUR ---
HAND-OFF: Report given to Giovana CAREY.
--- NOTE | 2019-12-31 19:30 | NUR ---
NURSE NOTES: Receive a report from AURELIO Edwards. Round is done. Pt is awake and alert. No acute distress noted. Pain is tolerating with using ADHESIVE BONDING MACHINE OPERATOR bolus. On NPO except ice chips and po medication. TPN and fluid are running via PICC on CLARISSE. PICC site is clear without infiltration. Ileostomy is natural gravity with flushing q 3hr and drained green-brown color. Dressing site kept clean and intact. Call light within reach. Will continue to monitor.
[2019-12-31 20:00] VITALS: BP 131/88
[2019-12-31] MEDS: Vancomycin 1.5gm/NS Premix IVPB SCH (20:10)
[2019-12-31] MEDS: Dyna-Hex 2% Top Sol 2oz TOPIC SCH (20:11)
[2019-12-31] MEDS: Fat Emulsion Iv 20% 216 ML in Tpn 1,560 ML IV SCH (20:19)
--- NOTE | 2019-12-31 20:45 | NUR ---
NURSE NOTES: Pt brought home medication. Notify Dr. Cuevas to confirm. Order noted and carried out. Will continue to monitor.
--- NOTE | 2019-12-31 21:00 | NUR ---
NURSE NOTES: No nausea noted but burping and ileostomy bag is full with gas and drainage. On Reglan 1 vial IVS q 6hrs. Will continue to monitor.
[2019-12-31] MEDS: ESTRADIOL VAGIN SCH (22:32)
[2019-12-31] MEDS: DiphenhydrAMINE 50mg/ml Inj IV PRN (22:34)
[2020-01-01] VITALS: BP 129/81
[2020-01-01] MEDS: Metoclopramide 10mg/2ml Inj IVP SCH ×4 (03:05→20:28)
[2020-01-01 05:00] VITALS: BP 124/78
[2020-01-01] MEDS: Ketorolac 30mg Inj IV PRN ×3 (05:30→18:01)
[2020-01-01] MEDS: NovoLOG Insulin Flexpen SUBQ SCH ×4 (06:00→17:35)
--- NOTE | 2020-01-01 06:00 | NUR ---
NURSE NOTES: Pt stated that Morphine did not work for pain very well. Provide prn Toradol 30mg IVS and pain level dropped to 2/10 and feeling comfortable. No N/V noted. Will continue to monitor. 12hr output Urine: 1075ml Ileostomy: 470ml
[2020-01-01 06:04] LABS: BASOPHILS % (AUTO) 1.4 % (0.0-2.0); EOSINOPHILS % (AUTO) 8.6 % (0.0-3.0); HEMATOCRIT 36.5 % (37.0-47.0); HEMOGLOBIN 12.7 G/DL (12.0-16.0); LYMPHOCYTES % (AUTO) 17.6 % (20.0-45.0); MEAN CORPUSCULAR VOLUME 89 FL (80-99); MONOCYTES % (AUTO) 7.3 % (1.0-10.0); NEUTROPHILS % (AUTO) 65.2 % (45.0-75.0); PLATELET COUNT 191 K/UL (150-450); RED BLOOD COUNT 4.12 M/UL (4.20-5.40); RED CELL DISTRIBUTION WIDTH 11.6 % (11.6-14.8); WHITE BLOOD COUNT 7.1 K/UL (4.8-10.8)
[2020-01-01 06:44] LABS: ALANINE AMINOTRANSFERASE 33 U/L (12-78); ALBUMIN 3.2 G/DL (3.4-5.0); ALBUMIN/GLOBULIN RATIO 0.8 (1.0-2.7); ALKALINE PHOSPHATASE 73 U/L (46-116); ANION GAP 8 mmol/L (5-15); ASPARTATE AMINO TRANSFERASE 17 U/L (15-37); BILIRUBIN,TOTAL 0.3 MG/DL (0.2-1.0); BLOOD UREA NITROGEN 15 mg/dL (7-18); CALCIUM 9.4 MG/DL (8.5-10.1); CARBON DIOXIDE 26 MMOL/L (21-32); CHLORIDE 106 MMOL/L (98-107); CREATININE 0.8 MG/DL (0.55-1.30); POTASSIUM 4.1 MMOL/L (3.5-5.1); SODIUM 140 MMOL/L (136-145)
--- NOTE | 2020-01-01 07:19 | NUR ---
NURSE NOTES: Report received from Giovana CAREY, rounds made. 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 Respirations/even unlabored on RA. Abdominal pain 12/18. BCIR drainage bag, yellow green output to gravity. SEVERO [place] at this time. Will continue to monitor. Addendum: 01/01/20 at 08 by Melanie Tran RN Gait steady, pace slow. Roxane dizziness. Addendum: 01/01/20 at 08 by Melanie Tran RN TPN infusing via left PICC at 74 ml/hr
[2020-01-01] MEDS: PCA shift volume MISC SCH ×2 (07:27→19:24)
--- NOTE | 2020-01-01 07:29 | NUR ---
HAND-OFF: Report given to AURELIO Navarro. Pt is ambulating steady gait.
[2020-01-01 08:00] VITALS: BP 120/76
--- NOTE | 2020-01-01 10:12 | NUR ---
CASE MANAGEMENT: REVIEW 12/31/19 SI:FISTULA . ABSCESS . ABDOMINAL PAIN . WOUND CX: ENTEROBACTER AEROGENES 98.1 76 16 120/76 94% ON RA ALBUMIN 3.2 IS:IV VANCOMYCIN Q24HR IV ERTAPENEM Q24HR IV TPN Q24HR WOOD TANK ERECTOR BID IV TORADOL Q6HR/PRN X-RAY ABD- NO ACUTE PROCESS \: 3E MED SURG UNIT DCP: HOME WHEN STABLE PLAN: CONT TPN CONT VANCO CONT NPO CONTINUOUS DRAINAGE OF KOCK POUCH CONTINENT ILEOSTOMY AMBULATE X3DAY C&S -PENDING
[2020-01-01] MEDS ORDERED: Naloxone 0.4mg/ml Inj IV PRN (10:36)
[2020-01-01] MEDS ORDERED: PCA Morphine 1mg/ml 30 ML IV PRN ×2 (10:45)
[2020-01-01] MEDS ORDERED: Rate Change PCA 1 Each MISC PRN (10:45)
--- NOTE | 2020-01-01 10:56 | General Progress Note ---
Progress Note Progress Note AVSS Still having intermittent considerable pain lower incision area + gas Now on Ertapenem + Vancomycin Abdomen soft, lower pole incision wound nearly healed, no evidence of abscess/ cellulitis Urine 2275 Kock pouch ileo 1090 Labs all stable Albumin up 3.2 Imp: Intra-abdominal abscess with persistent abdominal pain, localized Plan; Continue npo, TPN, IV antibiotics, continuous drainage of Kock pouch In view of persistent severe pain, will get f/u CT scan in AM re abscess , R/O evolving fistula Vishnu Cuevas MD Jan 01, 2020 10:56
[2020-01-01 12:00] VITALS: BP 129/78
[2020-01-01] MEDS ORDERED: NS Irrig 1000ml ONE (12:57)
[2020-01-01] MEDS ORDERED: Tubing IV Secondary IV ONE (12:57)
[2020-01-01] MEDS ORDERED: NS 275ml ONE (12:57)
--- NOTE | 2020-01-01 13:29 | NUR ---
RD ASSESSMENT & RECOMMENDATIONS SEE CARE ACTIVITY FOR COMPLETE ASSESSMENT DAILY ESTIMATED NEEDS: Needs based on Recent surgery, 58kg 28-33 kcals/kg 5869-9326 total kcals 58-116 g protein/kg 54-108 g total protein 25-30 mL/kg 7810-7938 total fluid mLs NUTRITION DIAGNOSIS: Altered GI function r/t malfunctioning ileostomy as evidenced by s/p recent laparotomy with release of small bowel obstruction, and internal hernia with repair of enterotomy x2 and repair of access segment enterotomy, now readmitted w/ severe abdominal pain and CT scan revealing small intra-abdominal abscess possible fistula, NPO, TPN ordered. CURRENT DIET:NPO PARENTERAL NUTRITION RECOMMENDATIONS: D/AA Rate: 65 IL Rate: 9 Total Rate: 74 Volume: 1776 % Dextrose: 17 % AA: 5.2 Energy (kcals/kg): 1658 Protein (g/kg protein): 81 Nonprotein KCALS: 1334 GIR (mg CHO/kg/min): 3.2 % Fat KCALS: 26 NPC: N Ratio: 103:1 TPN Comment: - Rec D17% + AA 5.2% @65ml/hr w/ IL 20% @9ml/hr, all 3:1. - Start rate per MD. - TPN at goal provides 1658 kcal (29 kcal/kg) and 81g pro (1.4g/kg), meets 100% est needs when at goal. ----- ADDITIONAL RECOMMENDATIONS: * OBTAIN AN UPDATED STANDING WEIGHT ABLE + WEEKLY STANDING WEIGHTS * MONITOR BGS, LFTS, LYTES ON TPN * Rec to Lower current D5 @125ml with TPN initiation to prevent hyperglycemia and liver failure -> D% now @20ml . .
--- NOTE | 2020-01-01 14:52 | NUR ---
*-*INSURANCE*-* ALL AVAILABLE CLINICALS/REVIEW HAVE BEEN FAXED TO: ELZBIETA Albert/JANE PH: [phone] FAX: [phone]
[2020-01-01 16:00] VITALS: BP 130/89
[2020-01-01] MEDS: Ertapenem 1gm in NS 55ml IVPB SCH (17:36)
--- NOTE | 2020-01-01 19:00 | NUR ---
NURSE NOTES: Patient reports some of her 4x4 gauze from abdominal dressing has fallen out while ambulating to bathroom. Patient assisted back to bed, removed dressing completely, noted the x2 silk tape that was holding the ileostomy catheter in place was damp as well as the the 4x4 gauze and some of the ABD pad. Ileostomy catheter cleaned well to remove the residue adhesive from the silk tape, then applied x2 new silk tape to anchor ileostomy catheter, new 4x4 gauze in between catheter and abdomen, then applied 4x4 and ABD secured with paper tape. Will endorse to next shift RN.
--- NOTE | 2020-01-01 19:17 | NUR ---
HAND-OFF: Report given to Dameon CAREY, rounds made. Patient stable. Outputs: Ileostomy: 820 ml Urine: 425 ml Addendum: 01/01/20 at 2009 by Melanie Tran RN Endorsed dressing change done at 1900.
[2020-01-01 20:00] VITALS: BP 152/93
[2020-01-01] MEDS: Dyna-Hex 2% Top Sol 2oz TOPIC SCH (20:28)
[2020-01-01] MEDS: Fat Emulsion Iv 20% 216 ML in Tpn 1,560 ML IV SCH (20:28)
[2020-01-01] MEDS: DiphenhydrAMINE 50mg/ml Inj IV PRN (21:16)
[2020-01-01] MEDS: Vancomycin 1gm in D5W 275ml IVPB SCH (22:56)
[2020-01-02] VITALS: BP 154/69
[2020-01-02] MEDS: Metoclopramide 10mg/2ml Inj IVP SCH ×6 (03:00→20:53)
--- NOTE | 2020-01-02 03:21 | NUR ---
NURSE NOTES: Received report from Melanie CAREY, pt stable , no s/s of distress , a/ox4, breaths regular unlabored. Pt denies any pain. Pt has a picc line on the CLARISSE, with i.v fluids running , patent and asymptomatic , ileostomy on Left lower ABD, dressing clean intact, will continue with plan of care
[2020-01-02 04:00] VITALS: BP 136/86
[2020-01-02] MEDS: NovoLOG Insulin Flexpen SUBQ SCH ×4 (05:52→18:00)
[2020-01-02 05:55] LABS: BASOPHILS % (AUTO) 1.5 % (0.0-2.0); EOSINOPHILS % (AUTO) 5.5 % (0.0-3.0); HEMATOCRIT 36.7 % (37.0-47.0); HEMOGLOBIN 12.9 G/DL (12.0-16.0); LYMPHOCYTES % (AUTO) 17.5 % (20.0-45.0); MEAN CORPUSCULAR VOLUME 88 FL (80-99); NEUTROPHILS % (AUTO) 67.5 % (45.0-75.0); PLATELET COUNT 189 K/UL (150-450); RED BLOOD COUNT 4.16 M/UL (4.20-5.40); RED CELL DISTRIBUTION WIDTH 11.8 % (11.6-14.8); WHITE BLOOD COUNT 7.1 K/UL (4.8-10.8)
[2020-01-02 06:21] LABS: ALANINE AMINOTRANSFERASE 43 U/L (12-78); ALBUMIN 3.2 G/DL (3.4-5.0); ALBUMIN/GLOBULIN RATIO 0.9 (1.0-2.7); ALKALINE PHOSPHATASE 77 U/L (46-116); ASPARTATE AMINO TRANSFERASE 26 U/L (15-37); BILIRUBIN,TOTAL 0.3 MG/DL (0.2-1.0); BLOOD UREA NITROGEN 27 mg/dL (7-18); CALCIUM 9.1 MG/DL (8.5-10.1); CARBON DIOXIDE 24 MMOL/L (21-32); CREATININE 0.7 MG/DL (0.55-1.30); PHOSPHORUS 3.5 MG/DL (2.5-4.9)
[2020-01-02 06:32] LABS: CHLORIDE 107 MMOL/L (98-107); POTASSIUM 3.8 MMOL/L (3.5-5.1); SODIUM 141 MMOL/L (136-145)
[2020-01-02] MEDS: PCA shift volume MISC SCH (07:28)
--- NOTE | 2020-01-02 07:41 | NUR ---
HAND-OFF: Report given to Erika CAREY.Pt stable
[2020-01-02 08:00] VITALS: BP 129/84
--- NOTE | 2020-01-02 08:00 | NUR ---
NURSE NOTES: Received report from Dameon CAREY, pt a/a/o x4 laying in bed with no signs of distress or other issues at this time. pt has a PICC line in the Left upper arm running D5 NS+20mEq@20 and TPN@74ml/hr. Ileostomy drainage to gravity, total mine shifter out put: 770ml. total urine out put: 420ml. pt is able to ambulate around the unit. call light within reach, bed in lowest position. side rales up x2. I will f/u as needed.
[2020-01-02] MEDS ORDERED: Omnipaque-300 100ml vial INJ SCH (09:00)
--- NOTE | 2020-01-02 10:01 | NUR ---
*-*INSURANCE*-* UPDATED CLINICALS/REVIEW HAVE BEEN FAXED TO: ELZBIETA Albert/JANE PH: [phone] FAX: [phone]
[2020-01-02] MEDS: Vancomycin 1gm in D5W 275ml IVPB SCH ×2 (10:24→21:07)
--- NOTE | 2020-01-02 11:05 | Diagnostic Imaging Report ---
Clinical Indication: Abdominal pain, incisional pain Technique: Patient ingested oral contrast. IV administration nonionic contrast. Venous phase spiral acquisition obtained through the abdomen and pelvis. Multiplanar reconstructions were generated. Total dose length product 439 mGycm. CTDIvol(s) 8 mGy. Dose reduction achieved using automated exposure control Comparison: 12/28/2019 Findings: Previously demonstrated small gas and fluid collection in the upper pelvic wall deep to the incision is no longer evident. Note that this was aspirated on 12/29/2019. Again demonstrated is a continent ileostomy. It contains a Brock catheter. Ingested contrast is seen all the way through the small bowel and into the ileostomy reservoir and some contrast is seen within the catheter lumen. Small bowel loops are mildly diffusely distended. No gas or fluid collections are currently evident. There is some presacral edema still present, unchanged. No small bowel wall thickening. The liver, gallbladder, bile ducts, pancreas, spleen, adrenals are all unremarkable. Previously demonstrated mild right hydronephrosis is no longer evident. No hydroureter. Contrast is seen to enter the bladder. The included lung bases are clear. The bones demonstrate mild degenerative spondylosis changes. Impression: Interim resolution of previously demonstrated small gas and fluid collection in the anterior upper pelvis, status post recent aspiration. No new pathologic collections are demonstrated. Nonspecific edema of the presacral fat, may be residual from prior surgery. Mildly dilated small bowel loops, may reflect mild ileus. Contrast enters the ileostomy pouch so there is no evidence of bowel obstruction Other findings as noted, including degenerative spondylosis The CT scanner at [facility] is accredited by the [employer] and the scans are performed using protocols designed to limit radiation exposure to as low as reasonably achievable to attain images of sufficient resolution adequate for diagnostic evaluation.
--- NOTE | 2020-01-02 11:50 | NUR ---
CASE MANAGEMENT:REVIEW SI: FISTULA . ABSCESS . ABDOMINAL PAIN . WOUND CX: ENTEROBACTER AEROGENES 98.6 57 20 154/93 96% 2L NC BUN 27 ALB 3.2 IS: IV VANCOMYCIN Q24HR IV ERTAPENEM Q24HR IV TPN Q24HR MARKET PRESIDENT BID IV TORADOL Q6HR/PRN IVF D5 @ 20 ML/HR 3E MED SURG UNIT MED SURG STATUS DCP: HOME WHEN STABLE PLAN: CONT TPN CONT VANCO CONT NPO CONTINUOUS DRAINAGE OF KOCK POUCH CONTINENT ILEOSTOMY AMBULATE X3DAY
[2020-01-02 12:00] VITALS: BP 116/77
[2020-01-02] MEDS ORDERED: Naloxone 0.4mg/ml Inj IV PRN (12:24)
[2020-01-02] MEDS ORDERED: Rate Change PCA 1 Each MISC PRN (12:30)
[2020-01-02] MEDS ORDERED: PCA Morphine 1mg/ml 30 ML IV PRN (12:33)
--- NOTE | 2020-01-02 12:55 | General Progress Note ---
Progress Note Progress Note AVSS Having some gas cramping pains, but not using TELEPHONE ORDER DISPATCHER. Occasional IV Toradol Abdomen soft, slight distention, incision lower pole is softer, non-tender Urine 745 Kock pouch ileo 1590 BUN up [address] scan: prior small gas and fluid collection has resolved. Mildly dilated small bowel diffusely, without obstruction Imp: intra-abdominal abscess, improved R/O bacterial overgrowth enteritis, C. diff enteritis, Pouchitis Plan: stool for C. diff toxin continue NPO, TPN, continuous drainage of Kock Pouch increase IV fluids Vishnu Cuevas MD Jan 02, 2020 12:55
[2020-01-02] MEDS ORDERED: Simethicone 80mg tab ORAL PRN (13:00)
--- NOTE | 2020-01-02 14:12 | NUR ---
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 FOLLOWING HOME HEALTH AGENCIES PROVIDED PHYSICIANS [facility] [phone] AGENCY IS NOT ABLE TO PROVIDE SERVICE. NO IV NURSE AVAILABLE [facility] [phone] NO IV NURSES AVAILABLE [employer] [facility] [phone] NO IV NURSES AVAILABLE CALL MADE TO DR HUMPHRIES AND INFORMED THAT [facility] AGENCIES ARE NOT ABLE TO SERVICE THIS PATIENT D/T NO IV NURSES AVAILABLE. PER UMAIR MARTINEZ TO REFER TO [facility] FOR IV ABX NEEDS. REFERRAL FAXED TO [facility] P: [phone] F: [phone] Addendum: 01/02/20 at 1433 by KARLY LUNDY LVN LVN S/Danisha SHELBY AT [facility] DEPT. [facility] REFERRAL HAS NOT YET BEEN RECEIVED. WILL RE-FAX AND FOLLOW UP. Addendum: 01/02/20 at 1721 by KARLY LUNDY LVN LVN S/W WILMAN AT [facility]. WILL ATTEMPT TO SECURE IV NURSE. WILL AWAIT OFFICIAL IV ABX ORDER FROM MD PRIOR TO DISCHARGE. DR HUMPHRIES AWARE.
[2020-01-02] MEDS ORDERED: NS Irrig 1000ml ONE (15:41)
[2020-01-02 16:00] VITALS: BP 139/91
--- NOTE | 2020-01-02 16:13 | Infectious Diseases Prog Note ---
Assessment/Plan Assessment/Plan ASSESSMENT AND PLAN: 1. enterobacter/gram + intra-abdominal abscess - - s/p aspiration - ertapenem and vancomycin - monitor labs - communicated with Dr. Cuevas - clinically improved with less abdominal pain - d/w patient 2. Abdominal pain. 3. Patient has a history of Kock pouch continent ileostomy and history of multiple abdominal surgeries. 4. History of proctocolectomy. 5. History of ulcerative colitis. 6. History of bowel obstruction and adhesions, status post laparotomy and repair. 7. Status post drainage procedure. 8. Allergies to Flagyl and hay fever. 9. Social history negative. 10. Family history noncontributory. 11. MAR was noted. 12. Case discussed with RN. 13. Case discussed with patient. 14. Case communicated with Dr. Vishnu Cuevas. 15. Continue treatment per Dr. Vishnu Cuevas. Subjective Constitutional: Denies: fever HEENT: Denies: congestion Respiratory: Denies: no symptoms, shortness of breath, dry cough, productive cough, other Cardiovascular: Denies: chest pain Gastrointestinal/Abdominal: Denies: nausea, vomiting, diarrhea Genitourinary: Reports: other - no vitale Neurologic: Denies: headache Psychiatric: Denies: depression Skin: Denies: rash Hematologic: Denies: bleeding Musculoskeletal: Denies: pain Allergies: Coded Allergies: METRONIDAZOLE (Verified Allergy, Mild, 09/18/18) HEADACHE, DIZZINESS Uncoded Allergies: hay fever (Allergy, Unknown, 09/24/16) Objective Vital Signs Last 24 Hour Vital Signs Date Time Temp Pulse Resp B/P (MAP) Pulse Ox O2 Delivery O2 Flow Rate FiO2 01/02/20 12:00 98.3 56 20 116/77 (90) 96 01/02/20 09:00 Room Air 01/02/20 08:00 98.6 74 20 129/84 (99) 97 01/02/20 06:28 97 Room Air 21 01/02/20 04:00 98.1 74 19 136/86 (103) 96 01/02/20 00:00 97.6 57 19 154/69 (97) 96 01/01/20 21:00 Room Air 01/01/20 20:00 97 Room Air 21 01/01/20 20:00 97.7 73 18 152/93 (112) 98 01/01/20 20:00 73 18 98 Height (Feet): 5 Height (Inches): 4.00 Weight (Pounds): 124 General Appearance: no acute distress HEENT: normocephalic, atraumatic, anicteric, mucous membranes moist Respiratory/Chest: lungs clear, normal breath sounds, no respiratory distress, no accessory muscle use Cardiovascular: normal rate, regular rhythm, no gallop/murmur, no JVD Abdomen: normal bowel sounds, soft, non tender, no organomegaly Genitourinary: other - no vitale Extremities: no cyanosis Skin: no rash Neurologic/Psychiatric: tool crib manager II-XII grossly normal, alert, responsive Lymphatic: no neck adenopathy Musculoskeletal: no effusion Objective CT abdomen and pelvis - IMPRESSION: 1. Resolution of previously seen presacral fluid collection as well as subcutaneous air in the lower abdomen and pelvis. 2. Suspect there is a 1.2 x 0.9 cm fistula tract versus abscess extending from a loop of intestine in the pelvis to the anterior midline abdominal wall. This appears to be blind-ending. However this shows rim enhancement as well as a small focus of air concerning for possible infection. 3. Mild right hydronephrosis and hydroureter. 4. Left lower quadrant ileostomy similar to prior study. CT abdomen and pelvis - 01/02/20 - Impression: Interim resolution of previously demonstrated small gas and fluid collection in the anterior upper pelvis, status post recent aspiration. No new pathologic collections are demonstrated. Nonspecific edema of the presacral fat, may be residual from prior surgery. Mildly dilated small bowel loops, may reflect mild ileus. Contrast enters the ileostomy pouch so there is no evidence of bowel obstruction Other findings as noted, including degenerative spondylosis Microbiology Date/Time Source Procedure Growth Status 12/29/19 16:05 Abdominal Abscess Anaerobic Culture - Preliminary Resulted culture - enterobacter/enterococcus s- noted Laboratory Tests Test 01/01/20 19:25 01/02/20 05:00 Vancomycin Level Trough 6.0 ug/mL (5.0-12.0) White Blood Count 7.1 K/UL (4.8-10.8) Red Blood Count 4.16 M/UL (4.20-5.40) L Hemoglobin 12.9 G/DL (12.0-16.0) Hematocrit 36.7 % (37.0-47.0) L Mean Corpuscular Volume 88 FL (80-99) Mean Corpuscular Hemoglobin 31.1 PG (27.0-31.0) H Mean Corpuscular Hemoglobin Concent 35.2 G/DL (32.0-36.0) Red Cell Distribution Width 11.8 % (11.6-14.8) Platelet Count 189 K/UL (150-450) Mean Platelet Volume 6.4 FL (6.5-10.1) L Neutrophils (%) (Auto) 67.5 % (45.0-75.0) Lymphocytes (%) (Auto) 17.5 % (20.0-45.0) L Monocytes (%) (Auto) 8.0 % (1.0-10.0) Eosinophils (%) (Auto) 5.5 % (0.0-3.0) H Basophils (%) (Auto) 1.5 % (0.0-2.0) Sodium Level 141 MMOL/L (136-145) Potassium Level 3.8 MMOL/L (3.5-5.1) Chloride Level 107 MMOL/L (98-107) Carbon Dioxide Level 24 MMOL/L (21-32) Blood Urea Nitrogen 27 mg/dL (7-18) H Creatinine 0.7 MG/DL (0.55-1.30) Estimat Glomerular Filtration Rate > 60 mL/min (>60) Glucose Level 121 MG/DL (74-106) H Calcium Level 9.1 MG/DL (8.5-10.1) Phosphorus Level 3.5 MG/DL (2.5-4.9) Magnesium Level 1.9 MG/DL (1.8-2.4) Total Bilirubin 0.3 MG/DL (0.2-1.0) Aspartate Amino Transf (AST/SGOT) 26 U/L (15-37) Alanine Aminotransferase (ALT/SGPT) 43 U/L (12-78) Alkaline Phosphatase 77 U/L (46-116) Total Protein 6.9 G/DL (6.4-8.2) Albumin 3.2 G/DL (3.4-5.0) L Globulin 3.7 g/dL Albumin/Globulin Ratio 0.9 (1.0-2.7) L Current Medications Medications (Trade) Dose Ordered Sig/Albina Route PRN Reason Start Time Stop Time Status Last Admin Dose Admin Acetaminophen (Tylenol) 650 mg Q4H PRN ORAL Mild Pain/Fever/STEEL 12/28/19 21:15 01/27/20 21:14 12/30/19 15:36 Barium Sulfate (Readi-Cat 2) 450 ml ADJUST PER PROTOCOL ORAL 01/02/20 09:00 01/03/20 09:01 Chlorhexidine Gluconate (Mohini-Hex 2%) 1 applic DAILY@2000 TOPIC 12/29/19 20:00 03/28/20 19:59 01/01/20 20:28 Dextrose 1,000 ml @ 0 mls/hr Q24H PRN IV PN interrupted or unavailable 12/29/19 20:00 01/28/20 08:59 Dextrose (Dextrose 50%) 25 ml Q30M PRN IV Hypoglycemia 12/29/19 08:15 03/28/20 08:14 Dextrose (Dextrose 50%) 50 ml Q30M PRN IV Hypoglycemia 12/29/19 08:15 03/28/20 08:14 Dextrose/ Electrolytes 1,000 ml @ 50 mls/hr Q20H IV 01/02/20 12:33 02/01/20 12:32 Diphenhydramine HCl (Benadryl) 25 mg Q4H PRN IV Itching/Pruritis 12/30/19 08:48 01/29/20 08:47 01/01/20 21:16 Ertapenem 1 gm/ Sodium Chloride 55 ml @ 110 mls/hr Q24H IVPB 12/31/19 17:00 01/05/20 16:59 01/01/20 17:36 Fat Emulsion Intravenous 216 ml/Amino Acids/ Electrolytes/ Dextrose 1,776 ml @ 74 mls/hr Q24H IV 12/29/19 20:00 03/28/20 19:59 01/01/20 20:28 Insulin Aspart (NovoLOG) Q6HR SUBQ 12/30/19 00:00 03/29/20 00:00 01/02/20 11:41 Ketorolac Tromethamine (Toradol 30mg) 30 mg Q6H PRN IV Breakthrough Pain 12/31/19 09:38 01/05/20 09:37 01/01/20 18:01 Metoclopramide HCl (Reglan) 10 mg Q6H IVP 12/30/19 09:00 01/29/20 08:59 01/01/20 20:28 Ondansetron HCl (Zofran) 4 mg Q4HR PRN IVP Nausea & Vomiting 12/28/19 21:15 01/27/20 21:14 12/30/19 03:27 Patient Own Medication (Patient's Own Med) 1 ea SuWe@2100 VAGIN 12/31/19 23:00 01/30/20 22:59 12/31/19 22:32 Simethicone (Mylicon) 80 mg Q4H PRN ORAL Abdominal cramps 01/02/20 13:00 04/01/20 12:59 Vancomycin HCl (Vanco rx to dose) 1 ea DAILY PRN MISC Per rx protocol 12/29/19 18:45 01/28/20 18:44 Vancomycin HCl 1 gm/Sodium Chloride 275 ml @ 183.708 mls/hr Q12HR@1000,2200 IVPB 01/01/20 22:00 01/06/20 21:59 01/02/20 10:24 Zolpidem Tartrate (Ambien) 5 mg HSPRN PRN ORAL Insomnia 01/02/20 13:00 01/09/20 12:59 Hazel De Santiago MD Jan 02, 2020 16:12
[2020-01-02] MEDS: Ertapenem 1gm in NS 55ml IVPB SCH (17:20)
[2020-01-02] MEDS ORDERED: PCA shift volume MISC SCH (19:00)
--- NOTE | 2020-01-02 19:15 | NUR ---
HAND-OFF: Report given to Dameon RN, pt in stable condition. - during my shift pt was able to ambulate around the unit. - CT abd/pelvis with contrast done - [employer]IVER removed -IVF increased from 30ml to 50ml/hr. I&O's Ileostomy: 1200-91=2749ur urine: 900ml Blood sugar: 142, 120 intake: NPO X ice chips and meds.
[2020-01-02 20:00] VITALS: BP 139/83
[2020-01-02] MEDS: Fat Emulsion Iv 20% 216 ML in Tpn 1,560 ML IV SCH (20:49)
[2020-01-02] MEDS: Dyna-Hex 2% Top Sol 2oz TOPIC SCH (20:51)
[2020-01-02] MEDS: Zolpidem 5mg tab ORAL PRN (20:52)
[2020-01-03] VITALS: BP 125/86
--- NOTE | 2020-01-03 01:06 | NUR ---
NURSE NOTES: Received report from Erika CAREY, pt remains stable , no s/s of distress , a/ox4, breaths regular unlabored. Pt denies any pain. Pt continues i.v fluids via picc on CLARISSE, patent and asymptomatic , ileostomy dressing clean intact, bed in low locked position, call light with in reach, will continue with plan of care
[2020-01-03] MEDS: Metoclopramide 10mg/2ml Inj IVP SCH ×3 (03:00→09:23)
[2020-01-03 04:00] VITALS: BP 132/79
[2020-01-03] MEDS: NovoLOG Insulin Flexpen SUBQ SCH ×4 (06:00→17:46)
[2020-01-03 06:28] LABS: BASOPHILS % (AUTO) 2.2 % (0.0-2.0); EOSINOPHILS % (AUTO) 7.2 % (0.0-3.0); HEMATOCRIT 36.1 % (37.0-47.0); HEMOGLOBIN 12.5 G/DL (12.0-16.0); LYMPHOCYTES % (AUTO) 22.6 % (20.0-45.0); MEAN CORPUSCULAR VOLUME 89 FL (80-99); MONOCYTES % (AUTO) 8.9 % (1.0-10.0); NEUTROPHILS % (AUTO) 59.1 % (45.0-75.0); PLATELET COUNT 191 K/UL (150-450); RED BLOOD COUNT 4.07 M/UL (4.20-5.40); RED CELL DISTRIBUTION WIDTH 11.8 % (11.6-14.8); WHITE BLOOD COUNT 6.1 K/UL (4.8-10.8)
[2020-01-03 06:52] LABS: ALANINE AMINOTRANSFERASE 68 U/L (12-78); ALBUMIN 3.1 G/DL (3.4-5.0); ALBUMIN/GLOBULIN RATIO 0.9 (1.0-2.7); ALKALINE PHOSPHATASE 73 U/L (46-116); ANION GAP 10 mmol/L (5-15); ASPARTATE AMINO TRANSFERASE 42 U/L (15-37); BILIRUBIN,TOTAL 0.4 MG/DL (0.2-1.0); BLOOD UREA NITROGEN 26 mg/dL (7-18); CARBON DIOXIDE 23 MMOL/L (21-32); CHLORIDE 108 MMOL/L (98-107); CREATININE 0.6 MG/DL (0.55-1.30); POTASSIUM 3.8 MMOL/L (3.5-5.1); SODIUM 141 MMOL/L (136-145)
--- NOTE | 2020-01-03 07:32 | NUR ---
HAND-OFF: Report given to Shaji RN, pt stable.
--- NOTE | 2020-01-03 07:51 | NUR ---
NURSE NOTES: Received pt from AURELIO Swift. pt was resting. no c/o pain. PICC line site on CLARISSE clean and dry, no acute distress. call light w/in reach.
[2020-01-03 08:00] VITALS: BP 155/70
[2020-01-03] MEDS: Vancomycin 1gm in D5W 275ml IVPB SCH (09:24)
--- NOTE | 2020-01-03 10:40 | General Progress Note ---
Progress Note Progress Note AVSS Doing well except for being depressed long hospital stay and then readmit Cramping pains have resolved. On Vanco + Ertapenem Abdomen soft, less distended Urine up 1150 Kock pouhc ileo 1889 {includes po contrast for CT) - 760cc overnight C. diff toxin negative BUN still up 26 Imp: Improved Plan: continue npo and TPN today d/c IV Reglan q6h maintain continuous drainage of Kock pouch hopefully can start clear liquids in AM Case Management re arranging for home IV antibiotics per ID Vishnu Cuevas MD Jan 03, 2020 10:40
[2020-01-03 12:00] VITALS: BP 155/70
[2020-01-03 16:00] VITALS: BP 153/75
[2020-01-03] MEDS: Ertapenem 1gm in NS 55ml IVPB SCH (17:46)
--- NOTE | 2020-01-03 19:43 | NUR ---
HAND-OFF: Report given to AURELIO Mon. pt is in stable condition.
--- NOTE | 2020-01-03 19:44 | NUR ---
NURSE NOTES: Received report from AURELIO Girard. Patient resting in bed, A/O, no distress noted, Denies pain at this time. PICC intact and dry. Ileo dressing dry and intact, catheter draining to bag. Bed in low position, locked, side rails up x2, call light within reach. will continue to monitor.
[2020-01-03] MEDS: Fat Emulsion Iv 20% 216 ML in Tpn 1,560 ML IV SCH (19:59)
[2020-01-03 20:00] VITALS: BP 149/90
[2020-01-03] MEDS: Dyna-Hex 2% Top Sol 2oz TOPIC SCH (20:00)
[2020-01-03] MEDS: Zolpidem 5mg tab ORAL PRN (21:43)
[2020-01-03] MEDS: Vancomycin 1.25gm/NS Premix q24h IVPB SCH (22:03)
[2020-01-04] VITALS: BP 128/74
[2020-01-04] MEDS: NovoLOG Insulin Flexpen SUBQ SCH ×4 (06:00→18:00)
--- NOTE | 2020-01-04 07:20 | NUR ---
HAND-OFF: Report given to AURELIO Girard. Patient ambulating in hallway.
[2020-01-04 07:21] LABS: BASOPHILS % (AUTO) 2.7 % (0.0-2.0); EOSINOPHILS % (AUTO) 10.3 % (0.0-3.0); HEMATOCRIT 35.1 % (37.0-47.0); HEMOGLOBIN 12.5 G/DL (12.0-16.0); LYMPHOCYTES % (AUTO) 22.6 % (20.0-45.0); MEAN CORPUSCULAR VOLUME 88 FL (80-99); MONOCYTES % (AUTO) 9.9 % (1.0-10.0); NEUTROPHILS % (AUTO) 54.5 % (45.0-75.0); PLATELET COUNT 189 K/UL (150-450); RED CELL DISTRIBUTION WIDTH 11.8 % (11.6-14.8); WHITE BLOOD COUNT 5.6 K/UL (4.8-10.8)
--- NOTE | 2020-01-04 07:22 | NUR ---
NURSE NOTES: received pt from AURELIO Mon. Pt was resting no acute distress, or pain, call light w/in reach.
[2020-01-04 07:38] LABS: ALANINE AMINOTRANSFERASE 109 U/L (12-78); ALBUMIN/GLOBULIN RATIO 0.9 (1.0-2.7); ALKALINE PHOSPHATASE 72 U/L (46-116); ANION GAP 11 mmol/L (5-15); ASPARTATE AMINO TRANSFERASE 54 U/L (15-37); BILIRUBIN,TOTAL 0.4 MG/DL (0.2-1.0); BLOOD UREA NITROGEN 16 mg/dL (7-18); CARBON DIOXIDE 23 MMOL/L (21-32); CHLORIDE 107 MMOL/L (98-107); CREATININE 0.6 MG/DL (0.55-1.30); PHOSPHORUS 3.4 MG/DL (2.5-4.9); POTASSIUM 3.9 MMOL/L (3.5-5.1); SODIUM 141 MMOL/L (136-145)
[2020-01-04 08:00] VITALS: BP 132/88
[2020-01-04] MEDS ORDERED: Ketorolac 30mg Inj IV PRN (09:38)
--- NOTE | 2020-01-04 09:51 | General Progress Note ---
Progress Note Progress Note AVSS on Ertapenem and Vanco Has had no cramping, and no need for analgesics past 24 hours Abdomen soft, flat, lower pole of incision is softer Urine 2000 with increased IV fluids and BUN down 16 Kock pouch ileo 910cc labs all stable - albumin still low Imp: Improving Plan: clear liquid diet - if tolerates, advance to full liquids if remains stable, no pain, no fever/leukocytosis, may be able to discharge and complete course of IV antibiotics using PICC at home for the intra -abdominal abscess, resolved on latest CT scan continue TPN - decrease IV fluids Vishnu Cuevas MD Jan 04, 2020 09:51
[2020-01-04] MEDS: Vancomycin 1.25gm/NS Premix q24h IVPB SCH ×2 (10:40→22:16)
--- NOTE | 2020-01-04 11:34 | NUR ---
NURSE NOTES: pt well tolerated clear liquid diet
[2020-01-04 12:00] VITALS: BP 120/82
[2020-01-04] MEDS ORDERED: NS Irrig 1000ml ONE (15:47)
[2020-01-04 16:00] VITALS: BP 120/71
--- NOTE | 2020-01-04 17:14 | Infectious Diseases Prog Note ---
Assessment/Plan Assessment/Plan ASSESSMENT AND PLAN: 1. enterobacter/enterococcus/prevotella intr-abdominal abscess - s/p aspiration - ertapenem and vancomycin - day # 6 post-drainage abx - monitor labs - clinically improved with less abdominal pain - d/w patient 2. Abdominal pain. 3. Patient has a history of Kock pouch continent ileostomy and history of multiple abdominal surgeries. 4. History of proctocolectomy. 5. History of ulcerative colitis. 6. History of bowel obstruction and adhesions, status post laparotomy and repair. 7. Status post drainage procedure. 8. Allergies to Flagyl and hay fever. 9. Social history negative. 10. Family history noncontributory. 11. MAR was noted. 12. Case discussed with RN. 13. Case discussed with patient. 14. Case communicated with Dr. Vishnu Cuevas. 15. Continue treatment per Dr. Vishnu Cuevas. Subjective Constitutional: Denies: fever HEENT: Denies: congestion Respiratory: Denies: shortness of breath Cardiovascular: Denies: chest pain Gastrointestinal/Abdominal: Denies: nausea, vomiting, diarrhea Genitourinary: Reports: other - no vitale Neurologic: Denies: headache Psychiatric: Denies: depression Skin: Denies: rash Hematologic: Denies: bleeding Musculoskeletal: Denies: pain Allergies: Coded Allergies: METRONIDAZOLE (Verified Allergy, Mild, 09/18/18) HEADACHE, DIZZINESS Uncoded Allergies: hay fever (Allergy, Unknown, 09/24/16) Objective Vital Signs Last 24 Hour Vital Signs Date Time Temp Pulse Resp B/P (MAP) Pulse Ox O2 Delivery O2 Flow Rate FiO2 01/04/20 12:00 98.4 68 18 120/82 (95) 98 01/04/20 08:00 97.9 77 18 132/88 (103) 98 01/04/20 07:27 Room Air 01/04/20 00:00 98.3 67 18 128/74 (92) 97 01/03/20 21:00 Room Air 01/03/20 20:00 98.7 66 17 149/90 (109) 98 01/03/20 19:30 97 Room Air 21 Height (Feet): 5 Height (Inches): 4.00 Weight (Pounds): 124 General Appearance: no acute distress HEENT: normocephalic, atraumatic, anicteric, mucous membranes moist Respiratory/Chest: lungs clear, normal breath sounds, no respiratory distress, no accessory muscle use Cardiovascular: normal rate, regular rhythm, no gallop/murmur Abdomen: normal bowel sounds, soft, non tender, no organomegaly, non distended Genitourinary: other - no vitale Extremities: no cyanosis Skin: no rash Neurologic/Psychiatric: sliver former II-XII grossly normal, alert, oriented x 3, responsive Lymphatic: no neck adenopathy Musculoskeletal: no effusion Objective CT abdomen and pelvis - IMPRESSION: 1. Resolution of previously seen presacral fluid collection as well as subcutaneous air in the lower abdomen and pelvis. 2. Suspect there is a 1.2 x 0.9 cm fistula tract versus abscess extending from a loop of intestine in the pelvis to the anterior midline abdominal wall. This appears to be blind-ending. However this shows rim enhancement as well as a small focus of air concerning for possible infection. 3. Mild right hydronephrosis and hydroureter. 4. Left lower quadrant ileostomy similar to prior study. CT abdomen and pelvis - 01/02/20 - Impression: Interim resolution of previously demonstrated small gas and fluid collection in the anterior upper pelvis, status post recent aspiration. No new pathologic collections are demonstrated. Nonspecific edema of the presacral fat, may be residual from prior surgery. Mildly dilated small bowel loops, may reflect mild ileus. Contrast enters the ileostomy pouch so there is no evidence of bowel obstruction Other findings as noted, including degenerative spondylosis Microbiology Date/Time Source Procedure Growth Status 01/02/20 13:00 Stool Clostridium difficile Toxin Assay - Final Complete 12/29/19 16:05 Abdominal Abscess Anaerobic Culture - Final Prevotella Loescheii Complete Microbiology Date/Time Source Procedure Growth Status 01/02/20 13:00 Stool Clostridium difficile Toxin Assay - Final Complete Laboratory Tests Test 01/04/20 05:10 White Blood Count 5.6 K/UL (4.8-10.8) Red Blood Count 4.00 M/UL (4.20-5.40) L Hemoglobin 12.5 G/DL (12.0-16.0) Hematocrit 35.1 % (37.0-47.0) L Mean Corpuscular Volume 88 FL (80-99) Mean Corpuscular Hemoglobin 31.2 PG (27.0-31.0) H Mean Corpuscular Hemoglobin Concent 35.5 G/DL (32.0-36.0) Red Cell Distribution Width 11.8 % (11.6-14.8) Platelet Count 189 K/UL (150-450) Mean Platelet Volume 6.5 FL (6.5-10.1) Neutrophils (%) (Auto) 54.5 % (45.0-75.0) Lymphocytes (%) (Auto) 22.6 % (20.0-45.0) Monocytes (%) (Auto) 9.9 % (1.0-10.0) Eosinophils (%) (Auto) 10.3 % (0.0-3.0) H Basophils (%) (Auto) 2.7 % (0.0-2.0) H Sodium Level 141 MMOL/L (136-145) Potassium Level 3.9 MMOL/L (3.5-5.1) Chloride Level 107 MMOL/L (98-107) Carbon Dioxide Level 23 MMOL/L (21-32) Anion Gap 11 mmol/L (5-15) Blood Urea Nitrogen 16 mg/dL (7-18) Creatinine 0.6 MG/DL (0.55-1.30) Estimat Glomerular Filtration Rate > 60 mL/min (>60) Glucose Level 111 MG/DL (74-106) H Calcium Level 9.0 MG/DL (8.5-10.1) Phosphorus Level 3.4 MG/DL (2.5-4.9) Magnesium Level 1.9 MG/DL (1.8-2.4) Total Bilirubin 0.4 MG/DL (0.2-1.0) Aspartate Amino Transf (AST/SGOT) 54 U/L (15-37) H Alanine Aminotransferase (ALT/SGPT) 109 U/L (12-78) H Alkaline Phosphatase 72 U/L (46-116) Total Protein 6.4 G/DL (6.4-8.2) Albumin 3.0 G/DL (3.4-5.0) L Globulin 3.4 g/dL Albumin/Globulin Ratio 0.9 (1.0-2.7) L Current Medications Medications (Trade) Dose Ordered Sig/Albina Route PRN Reason Start Time Stop Time Status Last Admin Dose Admin Acetaminophen (Tylenol) 650 mg Q4H PRN ORAL Mild Pain/Fever/STEEL 12/28/19 21:15 5/19/20 21:14 12/30/19 15:36 Chlorhexidine Gluconate (Mohini-Hex 2%) 1 applic DAILY@2000 TOPIC 12/29/19 20:00 03/28/20 19:59 01/03/20 20:00 Dextrose 1,000 ml @ 0 mls/hr Q24H PRN IV PN interrupted or unavailable 12/29/19 20:00 01/28/20 08:59 Dextrose (Dextrose 50%) 25 ml Q30M PRN IV Hypoglycemia 12/29/19 08:15 03/28/20 08:14 Dextrose (Dextrose 50%) 50 ml Q30M PRN IV Hypoglycemia 12/29/19 08:15 03/28/20 08:14 Dextrose/ Electrolytes 1,000 ml @ 40 mls/hr Q24H IV 01/04/20 11:30 02/01/20 11:29 01/04/20 10:43 Diphenhydramine HCl (Benadryl) 25 mg Q4H PRN IV Itching/Pruritis 12/30/19 08:48 01/29/20 08:47 01/01/20 21:16 Ertapenem 1 gm/ Sodium Chloride 55 ml @ 110 mls/hr Q24H IVPB 12/31/19 17:00 01/09/20 16:59 01/03/20 17:46 Fat Emulsion Intravenous 216 ml/Amino Acids/ Electrolytes/ Dextrose 1,776 ml @ 74 mls/hr Q24H IV 12/29/19 20:00 03/28/20 19:59 01/03/20 19:59 Insulin Aspart (NovoLOG) Q6HR SUBQ 12/30/19 00:00 03/29/20 00:00 01/02/20 11:41 Ketorolac Tromethamine (Toradol 30mg) 30 mg Q6H PRN IV Breakthrough Pain 01/04/20 09:38 01/09/20 09:37 Ondansetron HCl (Zofran) 4 mg Q4HR PRN IVP Nausea & Vomiting 12/28/19 21:15 01/27/20 21:14 12/30/19 03:27 Patient Own Medication (Patient's Own Med) 1 ea Lester@2100 VAGIN 12/31/19 23:00 01/30/20 22:59 12/31/19 22:32 Simethicone (Mylicon) 80 mg Q4H PRN ORAL Abdominal cramps 01/02/20 13:00 04/01/20 12:59 Vancomycin HCl (Vanco rx to dose) 1 ea DAILY PRN MISC Per rx protocol 12/29/19 18:45 01/28/20 18:44 Vancomycin/Sodium Chloride 275 ml @ 183.333 mls/hr Q12H IVPB 01/03/20 22:00 01/08/20 21:59 01/04/20 10:40 Zolpidem Tartrate (Ambien) 5 mg HSPRN PRN ORAL Insomnia 01/02/20 13:00 01/09/20 12:59 01/03/20 21:43 Hazel De Santiago MD Jan 04, 2020 17:14
[2020-01-04] MEDS: Ertapenem 1gm in NS 55ml IVPB SCH (18:30)
--- NOTE | 2020-01-04 19:18 | NUR ---
NURSE NOTES: Received report from AURELIO Girard. Patient is ambulating in hallways.
--- NOTE | 2020-01-04 19:21 | NUR ---
HAND-OFF: Report given to AURELIO Mon, pt is stable condtion, abd dressing was clean and dry and well tolerated clear liquid and full liquid diet during the day.
--- NOTE | 2020-01-04 19:25 | NUR ---
NURSE NOTES: Received report from AURELIO Girard. Patient has been ambulating in hallway, steady gait. Denies pain.
[2020-01-04 20:00] VITALS: BP 133/81
--- NOTE | 2020-01-04 20:00 | NUR ---
NURSE NOTES: Patient back in her room. No distress noted. PICC intact, patent, infusing TPN at 74 cc/hr and IVF at 40 cc/hr. Ileo dressing intact and dry. Ileo to drainage bag, patent. Patient denies any pain. Bed in low position, locked, side rails up x2, call light within reach. Will continue to monitor.
[2020-01-04] MEDS: Dyna-Hex 2% Top Sol 2oz TOPIC SCH (20:08)
[2020-01-04] MEDS: Fat Emulsion Iv 20% 216 ML in Tpn 1,560 ML IV SCH (20:09)
[2020-01-04] MEDS: ESTRADIOL VAGIN SCH (21:03)
[2020-01-04] MEDS: Zolpidem 5mg tab ORAL PRN (21:03)
[2020-01-05 00:05] VITALS: BP 118/74
[2020-01-05] MEDS: NovoLOG Insulin Flexpen SUBQ SCH ×4 (06:00→17:12)
--- NOTE | 2020-01-05 06:00 | NUR ---
NURSE NOTES: 12 HR output: Urine: 1550 cc Ileo: 325 - 80= 245 cc 24 HR output: Urine: 2400 cc Ileo: 1165 cc
[2020-01-05 06:11] VITALS: BP 129/71
--- NOTE | 2020-01-05 07:25 | NUR ---
HAND-OFF: Report given to AURELIO Alonso.
[2020-01-05 08:00] VITALS: BP 124/85
--- NOTE | 2020-01-05 08:19 | NUR ---
NURSE NOTES: awake/alert. no co pain. in no apparent distress.
--- NOTE | 2020-01-05 09:23 | General Progress Note ---
Progress Note Progress Note AVSS Tolerating small amounts of clear + full liquids, + protein shakes. No pain or gas or cramping Urine 2400 Kock pouch ileo 1165 Imp: Improving Plan: Continue full liquid diet+protein shakes, taper and d/c TPN maintain continuous drainage of Kock pouch today - start self- intubations in AM IV antibiotics per ID including duration of therapy, home health using existing PICC Vishnu Cuevas MD Jan 05, 2020 09:23
[2020-01-05] MEDS: Vancomycin 1.25gm/NS Premix q24h IVPB SCH ×3 (10:14→21:54)
--- NOTE | 2020-01-05 11:18 | NUR ---
*-*INSURANCE*-* UPDATED CLINICALS/REVIEW HAVE BEEN FAXED TO: ELZBIETA Albert/JANE PH: [phone] FAX: [phone]
--- NOTE | 2020-01-05 11:24 | NUR ---
RD ASSESSMENT & RECOMMENDATIONS SEE CARE ACTIVITY FOR COMPLETE ASSESSMENT DAILY ESTIMATED NEEDS: Needs based on Recent surgery, 58kg 28-33 kcals/kg 5104-0329 total kcals 58-116 g protein/kg 54-108 g total protein 25-30 mL/kg 6082-4639 total fluid mLs NUTRITION DIAGNOSIS: Altered GI function r/t malfunctioning ileostomy as evidenced by s/p recent laparotomy with release of small bowel obstruction, and internal hernia with repair of enterotomy x2 and repair of access segment enterotomy, now readmitted w/ severe abdominal pain and CT scan revealing small intra-abdominal abscess possible fistula, diet now advanced to full liquid diet, TPN to be dc'ed after current supply. CURRENT DIET:FULL LIQUID DIET PO DIET RECOMMENDATIONS: Advance diet per MD ADDITIONAL RECOMMENDATIONS: * OBTAIN AN UPDATED STANDING WEIGHT ABLE + WEEKLY STANDING WEIGHTS * Monitor PO tolerance and acceptance FLD started on 01/03 . . .
[2020-01-05 12:00] VITALS: BP 129/74
--- NOTE | 2020-01-05 12:15 | NUR ---
NURSE NOTES: STATES HER ILEOSTOMY CATHETER FELT IT'S PLUGGED AND NOT DRAINING. ILEOSTOMY CATHETER CHECKED AND NOTED DRESSING SATURATED WITH GREENISH OUTPUT AND LEAKING AROUND CATHETER. DRESSING CHANGED AND SECURED WITH SILK TAPE. CATHETER IRRIGATED WITH NS AND STARTED DRAINING MODERATE AMOUNT OF GREENISH OUTPUT. AMBULATED OUT IN THE WELLS. AND FELT BETTER.
--- NOTE | 2020-01-05 12:45 | NUR ---
BILLING ADMINISTRATOR NOTES SPOKE WITH PATIENT'S FACE TO FACE DISCUSSED DC PLAN. MADE AWARE HOMERJanel MANCIA WILL BE CONTACTING HIM FOR DELIVERY TIME. SPOKE WITH DR BOYD UGALDE CONFIRMED AND FAXED TO HOMER MANCIA. WILL FOLLOW UP. ANTICIPATING DC IN AM. Addendum: 01/05/20 at 1602 by FLACA ODELL RN RN SPOKE WITH CHAIM FROM HOMERJanel MANCIA [facility] WILL PROVIDE NURSING FOR THE [place]. PT MADE AWARE. [facility] [phone]
[2020-01-05 16:00] VITALS: BP 140/81
[2020-01-05] MEDS: Ertapenem 1gm in NS 55ml IVPB SCH (17:08)
--- NOTE | 2020-01-05 18:58 | NUR ---
NURSE NOTES: AMBULATORY AD ABBEY OUT IN THE WELLS.TOLERATED.
--- NOTE | 2020-01-05 19:00 | NUR ---
NURSE NOTES: Received report from Celeste CAREY, pt remains stable , no s/s of distress , Pt denies any pain. Pt continues i.v fluids via picc on CLARISSE, patent and asymptomatic , ileostomy dressing clean intact, bed in low locked position, call light with in reach, will continue with plan of care
--- NOTE | 2020-01-05 19:14 | NUR ---
HAND-OFF: Report given to Laureano MEZA RN.
[2020-01-05 20:00] VITALS: BP 126/83
[2020-01-05] MEDS: Dyna-Hex 2% Top Sol 2oz TOPIC SCH (21:28)
[2020-01-05] MEDS: Zolpidem 5mg tab ORAL PRN (21:29)
[2020-01-06] VITALS: BP 118/73
[2020-01-06 04:00] VITALS: BP 121/71
[2020-01-06 06:34] LABS: BASOPHILS % (AUTO) 2.2 % (0.0-2.0); EOSINOPHILS % (AUTO) 12.9 % (0.0-3.0); HEMATOCRIT 36.4 % (37.0-47.0); HEMOGLOBIN 12.7 G/DL (12.0-16.0); LYMPHOCYTES % (AUTO) 17.5 % (20.0-45.0); MEAN CORPUSCULAR VOLUME 89 FL (80-99); MONOCYTES % (AUTO) 10.6 % (1.0-10.0); NEUTROPHILS % (AUTO) 56.8 % (45.0-75.0); PLATELET COUNT 189 K/UL (150-450); RED CELL DISTRIBUTION WIDTH 11.9 % (11.6-14.8); WHITE BLOOD COUNT 6.1 K/UL (4.8-10.8)
[2020-01-06 06:56] LABS: ALANINE AMINOTRANSFERASE 118 U/L (12-78); ALBUMIN 3.1 G/DL (3.4-5.0); ALBUMIN/GLOBULIN RATIO 0.9 (1.0-2.7); ALKALINE PHOSPHATASE 92 U/L (46-116); ANION GAP 5 mmol/L (5-15); ASPARTATE AMINO TRANSFERASE 35 U/L (15-37); BILIRUBIN,TOTAL 0.4 MG/DL (0.2-1.0); BLOOD UREA NITROGEN 16 mg/dL (7-18); CARBON DIOXIDE 29 MMOL/L (21-32); CHLORIDE 109 MMOL/L (98-107); CREATININE 0.7 MG/DL (0.55-1.30); POTASSIUM 4.5 MMOL/L (3.5-5.1); SODIUM 143 MMOL/L (136-145)
--- NOTE | 2020-01-06 07:21 | NUR ---
HAND-OFF: Report given to Celeste CAREY , pt stable.
[2020-01-06 07:29] LABS: PHOSPHORUS 3.9 MG/DL (2.5-4.9)
[2020-01-06 08:00] VITALS: BP 124/83
--- NOTE | 2020-01-06 08:06 | NUR ---
NURSE NOTES: AWAKE/ALERT. NO C/O PAIN. IN NO DSITRESS.
--- NOTE | 2020-01-06 08:37 | General Progress Note ---
Progress Note Progress Note Doing well with full liquid diet, no GI or abdominal complaints and no pain Abdomen soft Kock pouch catheter removed Urine 3780 BCIR ileo 880 Labs all stable Imp: doing well Plan; Discharge with PICC and continue Ertapenem and Vanco per ID instructions/limitations/supplies discussed/provided f/u 01/11 office and prn Vishnu Cuevas MD Jan 06, 2020 08:37
[2020-01-06] MEDS: Vancomycin 1.25gm/NS Premix q24h IVPB SCH (10:06)
--- NOTE | 2020-01-06 11:00 | NUR ---
NURSE NOTES: ASSISTED WITH INTUBATION,DID VERY WELL. OBTAINED 150CC BROWNISH LIQUID.
--- NOTE | 2020-01-06 12:01 | NUR ---
CASE MANAGEMENT:REVIEW 01/03/20 SI: FISTULA . ABSCESS . ABDOMINAL PAIN . 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 ABSCESS . ABDOMINAL PAIN . WOUND CX: ENTEROBACTER AEROGENES 98.4 89 20 124/85 99% ON RA BUN 27 ALB 3.2 IS: IV VANCOMYCIN Q24HR IV ERTAPENEM Q24HR IV TPN Q24HR MARKETING INSTRUCTOR BID IV TORADOL Q6HR/PRN IVF D5 @ 20 ML/HR \: 3E MED SURG UNIT DCP: HOME WHEN STABLE PLAN: CONT TPN STARTED ON CLEARS CONTINUOUS DRAINAGE OF KOCK POUCH CONTINENT ILEOSTOMY AMBULATE X3DAY ANTICIPATE DC SOON CASE MANAGEMENT:REVIEW 01/05/20 SI: FISTULA . ABSCESS . ABDOMINAL PAIN . 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
--- NOTE | 2020-01-06 12:54 | NUR ---
NURSE NOTES: discharged home per wheelchair accpd by in stable condition. dc instructions given.
--- NOTE | 2020-01-06 13:29 | NUR ---
*-*INSURANCE*-* UPDATED CLINICALS/REVIEW HAVE BEEN FAXED TO: ELZBIETA Albert/JANE PH: [phone] FAX: [phone]
--- NOTE | 2020-01-07 14:43 | NUR ---
*-* NO DISCHARGE SUMMARY IN THE SYSTEM UNABLE TO FAX TO INSURANCE CO *-*
--- NOTE | 2020-01-07 17:52 | Discharge Summary ---
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 Recently, she developed recurrent episodes of small bowel obstruction and underwent surgery on 11/28/2019 with release of adhesions and repair of internal hernia as well as repair of enterotomy x2 and repair of access segment enterotomy x1. Patient had a prolonged recovery from her surgery and was discharged on 2019 on a full liquid diet with supplements. She just recently started to advance her diet and on the day of admission she developed severe excruciating abdominal pain , both steady and cramping in nature . Surgeon was advised her to come to the emergency room. Her abdomen was distended and tender . CT scan of abdomen and pelvis was done with a catheter placed into her Kock pouch in the emergency room , and revealed a likely abscess, possible fistula from a loop of bowel to under the rectus abdominis musculature of the midline incision area. Patient had not had any fevers. She required intravenous morphine to relieve her pain. Once an indwelling catheter was placed into her Kock pouch for drainage, her pain subsided substantially. Consultations Dr De Santiago -ID specialist Hospital Course patient was made n.p.o. with continued decompression of her Kock pouch continent ileostomy patient started on broad-spectrum antibiotic ID specialist consult was requested patient undergone placement of PICC line and started on TPN noted slight distention of abdomen patient subsequently undergone KUB , which revealed no definite acute process intake and output and labs were closely monitored antibiotic changed as per ID specialist recommendation in lieu of persistent severe pain , patient undergone CT scan of the abdomen and pelvis to rule ou evolving fistula CT scan of the abdomen and pelvis revealed interim resolution of previously demonstrated small gas and fluid collection in the anterior upper pelvis, status post recent aspiration no new pathological collection no evidence of bowel obstruction stool was collected for C. difficile to rule out bacterial overgrowth enteritis IV fluids rate increased. stool for C. difficile was negative patient started on clear liquid diet on 01/03 diet was slowly advanced as tolerated protein shake provided continued drainage of Kock pouch was maintained antibiotic continued patient started on self intubation Kock pouch catheter was removed patient was discharged with PICC line and to continue antibiotics to complete the course instruction/limitations/supplies discussed/provided patient to follow-up / in the office and call as needed. FINAL DIAGNOSES 1. Severe abdominal pain with CT scan revealing early postoperative intra-abdominal abscess and possible fistula. 2. Mild dehydration based on presenting laboratory studies. 3. Mild malnutrition based on laboratory studies and history. 4. Status post multiple abdominal operations. 4.1. Proctocolectomy and Kock pouch in 1984. 4.2. Revision of Kock pouch valve in 1985. 4.3. Revision of Kock pouch stoma and stricture in 2007. 4.4. Revision of Kock pouch stoma and access segment in depth 09/25/2016 4.5. Laparotomy with creation of a new valve and stoma with preservation of the Kock pouch and relocation of the stoma to the left lower quadrant 2016 4.6. Laparotomy with revision of Kock pouch slipped valve 09/25/2018. 4.7. Laparotomy with release of early postoperative small bowel obstruction and segmental small bowel resection in right upper mid abdomen 10/13 4.8. Laparotomy with release of recurring small bowel obstruction with lysis of multiple adhesions and repair of internal hernia with repair of enterotomy x2 and repair of access segment enterotomy 11/28/2019 5. Enterobacter/enterococcus/Prevotella intra-abdominal abscess 6. Status post drainage by interventional radiology 7. Malnutrition 8. Persistent abdominal pain -resolved Discharge Medications Continued Medications: Ascorbic Acid* (Vitamin C*) 500 Mg Tablet 500 MG ORAL DAILY, #30 TAB 0 Refills (This prescription has been renewed) Azelastine Hcl (Azelastine Hcl) 137 Mcg/0.137 Ml [place].pump 2 SPRAYS NS DAILY (This prescription has been renewed) [Baking Soda] () 1 TSP DAILY for bladder spasms (This prescription has been renewed) 1 teaspoon dissolved in 1/4 cup of water daily; 45 mins before breakfast or 2 hrs after breakfast Budesonide, Micronized (Budesonide) 0.5 Gm Powder 0.5 GM MC, GM (This prescription has been renewed) Carisoprodol* (Soma*) 350 Mg Tablet 350 MG PO Q6H PRN for MUSCLE SPASM, TAB Estradiol (Imvexxy) 10 Mcg Insert 10 MCG VG 2XW for Hormone, INSERT Every Sunday and at bedtime Estradiol* (Estrace*) 1 Mg Tablet 1 MG VAGIN DAILY for for hormones, #10 TAB 0 Refills (This prescription has been renewed) Fluticasone Propionate (Flonase Allergy Relief) 9.9 Ml [place].susp 1 SPR NS DAILY (This prescription has been renewed) Ibuprofen* (Advil*) 200 Mg Tablet 200 MG ORAL Q6H PRN for For Headache, TAB Magnesium Amino Acid Chelate (Magnesium) 100 Mg Tablet 120 MG PO DAILY for x, TAB (This prescription has been renewed) [place]-3 Fatty Acids/Fish Oil ([place] 3 Fish Oil Softgel) 1 Each Capsule.dr 1 EACH PO DAILY, CAP (This prescription has been renewed) Tramadol Hcl* (Ultram*) 50 Mg Tablet 50 MG ORAL Q6H PRN for For Pain, #12 TAB 0 Refills (This prescription has been renewed) [xiidra] () 1 BOTH EYES EVERY 12 HOURS PRN for Dry Eyes (This prescription has been renewed) In the morning and at bedtime Zolpidem Tartrate* (Ambien*) 5 Mg Tablet 5 MG ORAL BEDTIME PRN for Insomnia, TAB (This prescription has been renewed) Discharge Condition Upon Discharge: stable Discharge Vital Signs Last Vital Signs Date Time Temp Pulse Resp B/P (MAP) Pulse Ox O2 Delivery O2 Flow Rate FiO2 01/06/20 09:00 Room Air 01/06/20 08:27 97 21 01/06/20 08:00 98.0 78 18 124/83 (97) Discharge Disposition Patient was discharged home. Discharge Instructions Discharge Instructions Special Instructions I have been assigned to complete a D/C Summary on this account. I was not involved in the patient management Gogo Maddox NP Jan 07, 2020 17:52
== END 2020-01-06 12:45 | disposition home or self-care (01) | DRG 863 ==
LOC: EMR 17:46 → EDBEDREQ 18:12 → 3E 18:14 → EDBEDREQ 19:39
PROC: 0W9F3ZZ Drainage of Abdominal Wall, Percutaneous Approach (ICD-10-PCS; 2019-12-28)
PROC: 02HV33Z Insertion of Infusion Device into Superior Vena Cava, Percutaneous Approach (ICD-10-PCS; principal; 2019-12-29)
DX: T81.49XA Infection following a procedure, other surgical site, initial encounter (principal); L02.211 Cutaneous abscess of abdominal wall; K63.2 Fistula of intestine; E44.1 Mild protein-calorie malnutrition; N13.30 Unspecified hydronephrosis; Z87.19 Personal history of other diseases of the digestive system; E86.0 Dehydration; Z88.8 Allergy status to other drugs, medicaments and biological substances; Z93.2 Ileostomy status; Y83.8 Other surgical procedures as the cause of abnormal reaction of the patient, or of later complication, without mention of misadventure at the time of the procedure; B96.89 Other specified bacterial agents as the cause of diseases classified elsewhere; B95.2 Enterococcus as the cause of diseases classified elsewhere
CPT/HCPCS: 36415; 36569; 51702; 74018; 74177; 75989; 76937; 80053; 80202; 81003; 82962; 83690; 83735; 84100; 85025; 85610; 85730; 87070; 87075; 87181; 87205; 87324; 96361; 96374; 96375; 96376; 99285; J1815; J2405; J2765; J7030; S0077